=== PATIENT | male | born 1955 | race Caucasian/White ===

== ENCOUNTER 2016-09-05 03:50 | Inpatient (IN) | payer OTHER, BC ==
--- NOTE | 2016-09-05 04:31 | PDOC ---
History of Present Illness <Sigifredo Olmedo - Last Filed: 09/05/16 04:30> - General History Source: Patient Exam Limitations: No Limitations - History of Present Illness Initial Comments: 09/05/16 04:31 The patient is a 61 year old male with a significant past medical history of paraplegia below T2 and recurrent UTIs who presents to the ED for a UTI. The patient was discharged home from the ED last night but returned because his PIPING SUPERVISOR was not home. Patient denies any other symptoms. <Hailey Mckeon - Last Filed: 09/05/16 04:32> - General Stated Complaint: UTI Time Seen by Provider: 09/05/16 03:56 Past History - Past Medical History COPD: Yes Disorders: Yes (Recurrent UTI) HTN: (Hypotension) - Surgical History Orthopedic Surgery: Yes (fracture right wrist s/p fusion) - Immunization History Td Vaccination: No Immunization Up to Date: No - Psycho/Social/Smoking Cessation Hx Anxiety: No Suicidal Ideation: No Smoking Status: No Smoking History: Never smoked Years of Tobacco Use: 0 Have you smoked in the past 12 months: No Number of Cigarettes Smoked Daily: 0 Cigars Per Day: 0 Hx Alcohol Use: No Drug/Substance Use Hx: No Substance Use Type: Alcohol Hx Substance Use Treatment: No <Sigifredo Olmedo - Last Filed: 09/05/16 04:30> <Hailey Mckeon - Last Filed: 09/05/16 04:32> - Past Medical History Allergies/Adverse Reactions: Allergies Allergy/AdvReac Type Severity Reaction Status Date / Time No Known Allergies Allergy Verified 09/02/16 13:42 Home Medications: Ambulatory Orders Diazepam [Valium -] 10 mg PO TID PRN 07/28/15 Morphine 10 mg/5 ml Liquid [Morphine 10 mg/5 mL Liquid -] 4 mg PO Q4H PRN Sulfamethoxazole/Trimethoprim [Bactrim Ds -] 1 tab PO BID #20 tablet 09/02/16 Levofloxacin [Levaquin] 750 mg PO DAILY #5 tablet 09/05/16 Review of Systems - Review of Systems Able to Perform ROS?: Yes Comments:: 09/05/16 04:31 CONSTITUTIONAL: Absent: fever, no chills, no fatigue EYES: Absent: visual changes ENT: Absent: ear pain, no sore throat CARDIOVASCULAR: Absent: chest pain, no palpitations RESPIRATORY: Absent: cough, no SOB GI: Absent: abdominal pain, no nausea, no vomiting, no constipation, no diarrhea GENITOURINARY: Absent: dysuria, no frequency, no hematuria MUSKULOSKELETAL: Absent: back pain, no arthralgia, no myalgia SKIN: Absent: rash NEURO: Absent: headache All Other Systems: Reviewed and Negative <Hailey Mckeon - Last Filed: 09/05/16 04:32> *Physical Exam - Physical Exam Comments: 09/05/16 04:32 GENERAL: Well-appearing, well-nourished. No apparent distress. HEENT: Normocephalic, atraumatic. PERRL, EOM intact. CARDIOVASCULAR: Normal S1, S2. Regular rate and rhythm. PULMONARY: Clear to auscultation bilaterally. ABDOMEN: Soft, non-distended, non-tender. EXTREMITIES: Normal ROM in all four extremities. No gross deformities. SKIN: Warm, dry. No rash NEUROLOGICAL: + paraplegia, contracted right hand <Hailey Mckeon - Last Filed: 09/05/16 04:32> *DC/Admit/Observation/Transfer - Discharge Dispostion Admit: Yes <Sigifredo Olmedo - Last Filed: 09/05/16 04:30> - Attestations Scribe Attestion: 09/05/16 04:32 Documentation prepared by Hailey Mckeon, acting as medical massage therapist for Sigifredo Olmedo MD <Hailey Mckeon - Last Filed: 09/05/16 04:32> Diagnosis at time of Disposition: UTI (urinary tract infection) Qualifiers: Urinary tract infection type: site unspecified Hematuria presence: without hematuria Qualified Code(s): N39.0 - Urinary tract infection, site not specified
[2016-09-05] MEDS ORDERED: morphine SULFATE 10 MG/5 ML UNIT-DOSE CUP PO PRN (09:05)
[2016-09-05] MEDS ORDERED: ACETAMINOPHEN 325 MG TABLET (FP) PO PRN (09:06)
[2016-09-05] MEDS ORDERED: ONDANSETRON 4 MG/2 ML VIAL IVPB PRN (09:06)
[2016-09-05] MEDS ORDERED: POLYETHYLENE GLYCOL 3350 119 GM BTL PO SCH (10:00)
[2016-09-05] MEDS ORDERED: DOCUSATE SODIUM 100 MG CAPSULE (FP) PO ONE (10:22)
[2016-09-05] MEDS ORDERED: diazePAM 5 MG TABLET ONE (10:22)
[2016-09-05] MEDS: morphine SULFATE 10 MG/5 ML UNIT-DOSE CUP PO PRN (10:26)
[2016-09-05] MEDS: diazePAM 5 MG TABLET PO PRN ×2 (10:26→21:30)
[2016-09-05] MEDS: DOCUSATE SODIUM 100 MG CAPSULE (FP) PO SCH ×2 (10:26→21:31)
--- NOTE | 2016-09-05 10:51 | HP ---
Admitting History and Physical - Primary Care Physician PCP: Juan Manuel Kang - Admission Chief Complaint: I have a bladder infection History of Present Illness: Mr Valenzuela is a 61 year old male who comes in for a bladder infection. He says it started around Janine, he presented to the ED and received bactrim. He started taking it but did not improve. He says he wears a condom catheter and in the past couple of days noted pain on urination and general discomfort in his suprapubic area. He says he feels feverish with sweats and chills. He denies lightheadedness, dizziness, passing out, chest pain, shortness of breath , nausea, vomiting, diarrhea, constipation, or swelling. 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) Infectious Disease: Yes: Other (multiple UTIs) - Past Surgical History Past Surgical History: Yes: Splenectomy - Smoking History Smoking history: Never smoked Have you smoked in the past 12 months: No Aproximately how many cigarettes per day: 0 - Alcohol/Substance Use Hx Alcohol Use: Yes History of Substance Use: reports: None - Social History Usual Living Arrangement: Yes: Other 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 History of Recent Travel: No Home Medications - Allergies Allergies/Adverse Reactions: Allergies Allergy/AdvReac Type Severity Reaction Status Date / Time No Known Allergies Allergy Verified 09/05/16 04:32 - Home Medications Home Medications: Ambulatory Orders Diazepam [Valium -] 10 mg PO TID PRN 07/28/15 Morphine 10 mg/5 ml Liquid [Morphine 10 mg/5 mL Liquid -] 4 mg PO Q4H PRN Sulfamethoxazole/Trimethoprim [Bactrim Ds -] 1 tab PO BID #20 tablet 09/02/16 Levofloxacin [Levaquin] 750 mg PO DAILY #5 tablet 09/05/16 Family Disease History - Family Disease History Family Disease History: Heart Disease: Father Review of Systems Findings/Remarks: full review of systems obtained, as per HPI and otherwise negative Physical Examination Vital Signs: Vital Signs Temperature 97.7 F 09/05/16 09:11 Pulse Rate 85 09/05/16 08:00 Respiratory Rate 18 09/05/16 08:00 Blood Pressure 112/60 09/05/16 08:00 O2 Sat by Pulse Oximetry (%) 96 09/05/16 08:00 Constitutional: Yes: Well Nourished, No Distress, Calm Eyes: Yes: Conjunctiva Clear, EOM Intact HENT: Yes: Atraumatic, Normocephalic Cardiovascular: Yes: Regular Rate and Rhythm. No: Gallop, Murmur, Rub Respiratory: Yes: Regular, CTA Bilaterally. No: Rales, Rhonchi, Wheezes Gastrointestinal: Yes: Normal Bowel Sounds, Soft. No: Distention, Tenderness Extremities: Yes: WNL Edema: No Labs: Lab test reviewed and notable for UTI on urinalysis (positive nitrites and leukocyte esterase, elevated WBCs and bacteria present). All other lab test WNL Problem List - Problems (1) Complicated UTI (urinary tract infection) Assessment/Plan: -patient with complicated UTI, failed bactrim -admit to hospital -begin IV levaquin -follow up urine cultures -monitor for improvement Code(s): N39.0 - URINARY TRACT INFECTION, SITE NOT SPECIFIED (2) Paraplegia Assessment/Plan: -chronic Code(s): G82.20 - PARAPLEGIA, UNSPECIFIED (3) Chronic pain Assessment/Plan: -continue home dose of morphine and valium for pain and spasm Code(s): G89.29 - OTHER CHRONIC PAIN
[2016-09-05] MEDS: HEPARIN NA (PORCINE) 5,000 UNITS/ML 1ML VIAL SQ SCH ×2 (14:21→21:30)
[2016-09-05 16:18] VITALS: BMI 16.9
[2016-09-06] MEDS: morphine SULFATE 10 MG/5 ML UNIT-DOSE CUP PO PRN ×2 (06:20→20:03)
[2016-09-06] MEDS: HEPARIN NA (PORCINE) 5,000 UNITS/ML 1ML VIAL SQ SCH ×3 (06:21→21:40)
[2016-09-06 08:37] LABS: MCH 31.4 pg (25.7-33.7); MCHC 33.2 g/dl (32.0-35.9); MEAN CELL VOLUME 94.5 fl (80-96); MEAN PLT VOLUME 9.5 fl (7.5-11.1); PLATELET COUNT 238 K/MM3 (134-434); RDW 16.2 % (11.9-15.9); WHITE BLOOD COUNT 4.5 K/mm3 (4.0-10.0)
[2016-09-06 08:55] LABS: CALCIUM 8.1 mg/dL (8.5-10.1); CREATININE 0.6 mg/dL (0.7-1.3); PHOSPHOROUS 2.2 mg/dL (2.5-4.9)
[2016-09-06] MEDS: DOCUSATE SODIUM 100 MG CAPSULE (FP) PO SCH ×2 (10:04→21:40)
[2016-09-06] MEDS: diazePAM 5 MG TABLET PO PRN (10:05)
--- NOTE | 2016-09-06 11:52 | PN ---
Progress Note, Physician Chief Complaint: Mr Valenzuela says he needs to have a bowel movement, however he needs water stimulation to assist with moving his bowels. Also with bladder pain still. No cp or sob. - Current Medication List Current Medications: Active Medications Acetaminophen (Tylenol -) 650 mg PO Q4H PRN PRN Reason: FEVER OR PAIN Diazepam (Valium -) 10 mg PO TID PRN PRN Reason: muscle spasms Last Admin: 09/06/16 10:05 Dose: 10 mg Docusate Sodium (Colace -) 100 mg PO BID [facility] Last Admin: 09/06/16 10:04 Dose: 100 mg Heparin Sodium (Porcine) (Heparin -) 5,000 unit SQ TID [facility] Last Admin: 09/06/16 06:21 Dose: 5,000 unit Morphine Sulfate (Morphine 10 Mg/5 Ml Liquid) 10 mg PO Q4H PRN PRN Reason: PAIN Last Admin: 09/06/16 06:20 Dose: 10 mg Ondansetron HCl (Zofran Injection) 4 mg IVPB Q6H PRN PRN Reason: NAUSEA Polyethylene Glycol (Miralax (For Daily Use) -) 17 gm PO DAILY PRN PRN Reason: CONSTIPATION - Objective Vital Signs: Vital Signs Temperature 97.6 F 09/06/16 09:28 Pulse Rate 96 H 09/06/16 09:28 Respiratory Rate 20 09/06/16 09:28 Blood Pressure 96/57 09/06/16 09:28 O2 Sat by Pulse Oximetry (%) 95 09/06/16 09:00 Constitutional: Yes: Well Nourished, No Distress, Calm Cardiovascular: Yes: Regular Rate and Rhythm. No: Gallop, Murmur, Rub Respiratory: Yes: Regular, CTA Bilaterally. No: Rales, Rhonchi, Wheezes Gastrointestinal: Yes: Normal Bowel Sounds, Soft. No: Distention, Tenderness Extremities: Yes: WNL Edema: No Labs: CBC, BMP 09/06/16 07:00 09/06/16 07:00 Problem List - Problems (1) Complicated UTI (urinary tract infection) Code(s): N39.0 - URINARY TRACT INFECTION, SITE NOT SPECIFIED (2) Paraplegia Code(s): G82.20 - PARAPLEGIA, UNSPECIFIED (3) Chronic pain Code(s): G89.29 - OTHER CHRONIC PAIN Assessment/Plan (1) Complicated UTI (urinary tract infection) Assessment/Plan: -patient with complicated UTI, failed bactrim -continue levaquin -urine cultures are contaminant, will repeat (note urine cultures do not show up this admission but last admission because patient left AMA and came right back) Code(s): N39.0 - URINARY TRACT INFECTION, SITE NOT SPECIFIED (2) Paraplegia Assessment/Plan: -chronic Code(s): G82.20 - PARAPLEGIA, UNSPECIFIED (3) Chronic pain Assessment/Plan: -continue home dose of morphine and valium for pain and spasm Code(s): G89.29 - OTHER CHRONIC PAIN
[2016-09-06] MEDS ORDERED: NAPH,MB-DB/K PH,MBDB POWDER PACKET PO ONE (12:30)
[2016-09-06] MEDS: POLYETHYLENE GLYCOL 3350 119 GM BTL PO PRN (21:40)
[2016-09-07] MEDS: diazePAM 5 MG TABLET PO PRN ×2 (01:43→10:48)
[2016-09-07] MEDS: HEPARIN NA (PORCINE) 5,000 UNITS/ML 1ML VIAL SQ SCH ×3 (06:57→22:50)
[2016-09-07] MEDS: morphine SULFATE 10 MG/5 ML UNIT-DOSE CUP PO PRN (07:03)
[2016-09-07 09:27] LABS: MCH 31.4 pg (25.7-33.7); MCHC 33.6 g/dl (32.0-35.9); MEAN CELL VOLUME 93.4 fl (80-96); MEAN PLT VOLUME 9.5 fl (7.5-11.1); PLATELET COUNT 241 K/MM3 (134-434); RDW 15.7 % (11.9-15.9); WHITE BLOOD COUNT 4.8 K/mm3 (4.0-10.0)
[2016-09-07 09:44] LABS: ALK PHOS 88 U/L (45-117); ANION GAP 8 (8-16); BILIRUBIN,TOTAL 0.5 mg/dL (0.2-1.0); CALCIUM 8.4 mg/dL (8.5-10.1); CO2 27 mmol/L (21-32); CREATININE 0.5 mg/dL (0.7-1.3); GLUCOSE,RANDOM 101 mg/dL (74-106); SGOT/AST 21 U/L (15-37); SGPT/ALT 18 U/L (12-78); TOT PROT 6.5 g/dl (6.4-8.2)
[2016-09-07] MEDS: POLYETHYLENE GLYCOL 3350 119 GM BTL PO PRN (10:27)
[2016-09-07] MEDS: DOCUSATE SODIUM 100 MG CAPSULE (FP) PO SCH ×2 (10:27→22:50)
[2016-09-07] MEDS ORDERED: PATIENT'S OWN MEDICATION (NON-FORMULARY) (Levofloxacin 750 MG) PO SCH (10:45)
[2016-09-07] MEDS ORDERED: LEVOFLOXACIN 750 MG IVPB 150 ML IVPB ONE (10:49)
[2016-09-07 11:30] LABS: PLATELET COMMENT2 NO CLOTTING DETECTED; PLATELET COMMENT3 FEW LARGE PLTS; PLATELET ESTIMATE ADEQUATE (NORMAL)
[2016-09-07] MEDS ORDERED: LEVOFLOXACIN 250 MG TABLET (FP) ONE (11:36)
[2016-09-07] MEDS ORDERED: LEVOFLOXACIN 500 MG TABLET (FP) ONE (11:36)
[2016-09-07] MEDS: LEVOFLOXACIN 250 MG TABLET (FP) PO SCH (11:39)
[2016-09-07] MEDS: MAGNESIUM HYDROX 2400MG/30ML ORAL SUSPENSION 30 ML CUP PO PRN (18:37)
--- NOTE | 2016-09-07 20:10 | PN ---
Physical Exam: SUBJECTIVE: Patient seen and examined. He was comfortable at rest, denies any pain. Refusing IV antibiotics, but now in agreement. OBJECTIVE: GENERAL: The patient is awake, alert, and fully oriented, in no acute distress. HEAD: Normal with no signs of trauma. EYES: PERRL, extraocular movements intact, sclera anicteric, conjunctiva clear. No ptosis. ENT: Ears normal, nares patent, oropharynx clear without exudates, moist mucous membranes. NECK: Trachea midline, full range of motion, supple. LUNGS: Breath sounds equal, clear to auscultation bilaterally, no wheezes, no crackles, no accessory muscle use. ABDOMEN: Soft, nontender, nondistended, normoactive bowel sounds, no guarding, no rebound, no hepatosplenomegaly, no masses. PSYCH: Normal mood, normal affect. SKIN: Warm, dry, normal turgor, no rashes or lesions noted Period Temp Pulse Resp BP Sys/Roche Pulse Ox Last 24 Hr 97.8 F-98.5 F 63-98 18-20 100-139/52-61 95-95 Laboratory Results - last 24 hr 09/06/16 09/07/16 09/07/16 07:00 08:45 08:45 WBC 4.8 RBC 4.32 Hgb 13.5 Hct 40.3 MCV 93.4 MCHC 33.6 RDW 15.7 Plt Count 241 MPV 9.5 Neutrophils % 52.0 D Lymphocytes % 30.0 D Monocytes % 12.0 H Eosinophils % 2.0 D Band Neutrophils 4.0 D Platelet Estimate Adequate Platelet Comment No clotting detected RBC Morphology Appears normal Sodium 139 Potassium 3.5 Chloride 104 Carbon Dioxide 27 Anion Gap 8 BUN 5 L D Creatinine 0.5 L Creat Clearance w eGFR > 60 Random Glucose 101 D Calcium 8.4 L Total Bilirubin 0.5 D AST 21 ALT 18 Alkaline Phosphatase 88 D Total Protein 6.5 Albumin 3.0 L Hepatitis C Antibody 10.2 H Active Medications Generic Name Dose Route Start Last Admin Trade Name Freq PRN Reason Stop Dose Admin Acetaminophen 650 mg 09/05/16 09:06 Tylenol - PO Q4H PRN FEVER OR PAIN Diazepam 10 mg 09/05/16 09:05 09/07/16 10:48 Valium - PO 10 mg TID PRN Administration muscle spasms Docusate Sodium 100 mg 09/05/16 10:00 09/07/16 10:27 Colace - PO 100 mg BID ZAIRA Administration Heparin Sodium (Porcine) 5,000 unit 09/05/16 14:00 09/07/16 14:12 Heparin - SQ 5,000 unit TID ZAIRA Administration Levofloxacin 150 mls @ 100 mls/hr 09/08/16 08:00 Levaquin 750 Mg Premixed Ivpb - IVPB 09/08/16 09:29 ONCE ONE Levofloxacin 750 mg 09/07/16 11:30 09/07/16 11:39 Levaquin - PO 750 mg DAILY ZAIRA Administration Magnesium Hydroxide 30 ml 09/07/16 17:52 09/07/16 18:37 Milk Of Magnesia - PO 30 ml DAILY PRN Administration CONSTIPATION Morphine Sulfate 10 mg 09/05/16 09:59 09/07/16 07:03 Morphine 10 Mg/5 Ml Liquid PO 10 mg Q4H PRN Administration PAIN Ondansetron HCl 4 mg 09/05/16 09:06 Zofran Injection IVPB Q6H PRN NAUSEA Polyethylene Glycol 17 gm 09/05/16 10:45 09/07/16 10:27 Miralax (For Daily Use) - PO 17 gm DAILY PRN Administration CONSTIPATION ASSESSMENT/PLAN: The patient is a 61 year old male with a significant past medical history of paraplegia below T2 and recurrent UTIs who presents to the ED for a UTI. 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 Patient denies any other symptoms. : Urinary Tract Infection - chronic Assessment/Plan: Patient was being treated with PO Bactrim as outpatient. Will be receiving Levaquin IV here for UTI, but today refused IV placement. Ordered Levaquin 750mg PO x 1 dose and stressed importance of Levaquin IV for his recurrent UTI. He is now in agreement to get IV antibiotics. Condom catheter with hazy yellow urine. Urine cultures pending Continue to monitor, he is afebrile, vitals stable Muscular/Skeletal Paraplegia - chronic Assessment/Plan: Monitor skin integrity, turn and position q 2, high risk for skin breakdown Pt encouraged to shift his weight, bed trapeze. Monitor closely Pain Management - chronic Assessment/Plan: Continue morphine and Valium GI: Constipation - chronic Assessment/Plan: Miralax, Colace and Milk of Mag If no BM, will order tap water enema F.E.N. Tolerating PO fluids BMP in a.m. Regular diet Prophylaxis: heparin TID SC Disposition: Requires inpatient hospitalization. Full Code. Visit type - Emergency Visit Emergency Visit: Yes ED Registration Date: 09/05/16 Care time: The patient presented to the Emergency Department on the above date and was hospitalized for further evaluation of their emergent condition. - New Patient This patient is new to me today: Yes Date on this admission: 09/08/16 - Critical Care Critical Care patient: No - Discharge Referral Referred to [facility] Med P.C.: No
[2016-09-08] MEDS: HEPARIN NA (PORCINE) 5,000 UNITS/ML 1ML VIAL SQ SCH ×3 (06:56→21:34)
[2016-09-08 07:48] LABS: MCH 31.2 pg (25.7-33.7); MCHC 33.4 g/dl (32.0-35.9); MEAN CELL VOLUME 93.6 fl (80-96); PLATELET COUNT 223 K/MM3 (134-434); RDW 15.8 % (11.9-15.9); WHITE BLOOD COUNT 5.9 K/mm3 (4.0-10.0)
[2016-09-08] MEDS ORDERED: LEVOFLOXACIN 750 MG IVPB 150 ML IVPB ONE (08:00)
[2016-09-08 08:12] LABS: ALK PHOS 92 U/L (45-117); ANION GAP 11 (8-16); BILIRUBIN,TOTAL 0.4 mg/dL (0.2-1.0); CALCIUM 8.4 mg/dL (8.5-10.1); CO2 29 mmol/L (21-32); CREATININE 0.6 mg/dL (0.7-1.3); GLUCOSE,RANDOM 84 mg/dL (74-106); SGOT/AST 17 U/L (15-37); SGPT/ALT 22 U/L (12-78); TOT PROT 6.7 g/dl (6.4-8.2)
[2016-09-08] MEDS: LEVOFLOXACIN 250 MG TABLET (FP) PO SCH (10:09)
[2016-09-08] MEDS ORDERED: SODIUM CHLORIDE 250 ML IV STA (10:11)
[2016-09-08] MEDS: MAGNESIUM HYDROX 2400MG/30ML ORAL SUSPENSION 30 ML CUP PO PRN (10:30)
[2016-09-08] MEDS: DOCUSATE SODIUM 100 MG CAPSULE (FP) PO SCH ×2 (10:30→21:34)
[2016-09-08] MEDS: morphine SULFATE 10 MG/5 ML UNIT-DOSE CUP PO PRN ×2 (10:35→19:56)
[2016-09-08] MEDS: SODIUM CHLORIDE 1,000 ML IV SCH (12:17)
--- NOTE | 2016-09-08 16:50 | PN ---
Physical Exam: SUBJECTIVE: Patient seen and examined. States he feels well, asymptomatic, denies dizziness. States he is chronically constipated and medications are not working. OBJECTIVE: GENERAL: The patient is awake, alert, and fully oriented, in no acute distress. HEAD: Normal with no signs of trauma. EYES: PERRL, extraocular movements intact, sclera anicteric, conjunctiva clear. No ptosis. ENT: Ears normal, nares patent, oropharynx clear without exudates, moist mucous membranes. NECK: Trachea midline, full range of motion, supple. LUNGS: Breath sounds equal, clear to auscultation bilaterally, no wheezes, no crackles, no accessory muscle use. ABDOMEN: Soft, nontender, nondistended, normoactive bowel sounds, no guarding, no rebound, no hepatosplenomegaly, no masses. PSYCH: Normal mood, normal affect. SKIN: Warm, dry, normal turgor, no rashes or lesions noted Vital Signs Period Temp Pulse Resp BP Sys/Roche Pulse Ox Last 24 Hr 98.2 F-99.4 F 64-110 18-20 80-143/50-69 96-96 Laboratory Results - last 24 hr 09/08/16 09/08/16 06:00 06:00 WBC 5.9 RBC 4.36 Hgb 13.6 Hct 40.8 MCV 93.6 MCHC 33.4 RDW 15.8 Plt Count 223 MPV 10.0 Neutrophils % 52.0 Lymphocytes % 21.0 D Monocytes % 13.0 H Band Neutrophils 14.0 H D Sodium 139 Potassium 3.7 Chloride 99 Carbon Dioxide 29 Anion Gap 11 BUN 5 L Creatinine 0.6 L Creat Clearance w eGFR > 60 Random Glucose 84 Calcium 8.4 L Total Bilirubin 0.4 AST 17 ALT 22 D Alkaline Phosphatase 92 Total Protein 6.7 Albumin 3.0 L Active Medications Generic Name Dose Route Start Last Admin Trade Name Freq PRN Reason Stop Dose Admin Acetaminophen 650 mg 09/05/16 09:06 Tylenol - PO Q4H PRN FEVER OR PAIN Diazepam 10 mg 09/05/16 09:05 09/07/16 10:48 Valium - PO 10 mg TID PRN Administration muscle spasms Docusate Sodium 100 mg 09/05/16 10:00 09/08/16 10:30 Colace - PO 100 mg BID [facility]AIRA Administration Heparin Sodium (Porcine) 5,000 unit 09/05/16 14:00 09/08/16 14:12 Heparin - SQ 5,000 unit TID [facility]AIR[facility] Administration Sodium Chloride 1,000 mls @ 100 mls/hr 09/08/16 10:15 09/08/16 12:17 Normal Saline - IV 100 mls/hr ASDIR ZAIRA Administration Magnesium Hydroxide 30 ml 09/07/16 17:52 09/08/16 10:30 Milk Of Magnesia - PO 30 ml DAILY PRN Administration CONSTIPATION Morphine Sulfate 10 mg 09/05/16 09:59 09/08/16 10:35 Morphine 10 Mg/5 Ml Liquid PO 10 mg Q4H PRN Administration PAIN Ondansetron HCl 4 mg 09/05/16 09:06 Zofran Injection IVPB Q6H PRN NAUSEA Polyethylene Glycol 17 gm 09/05/16 10:45 09/07/16 10:27 Miralax (For Daily Use) - PO 17 gm DAILY PRN Administration CONSTIPATION ASSESSMENT/PLAN: The patient is a 61 year old male with a significant past medical history of paraplegia below T2 and recurrent UTIs who presents to the ED for a UTI. 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 Patient denies any other symptoms. : Urinary Tract Infection - chronic Assessment/Plan: Patient was being treated with PO Bactrim as outpatient, failed Bactrim. Now on Levaquin IV 750mg daily. Awaiting urine cultures. Condom catheter with hazy yellow urine. Today had low grade temps, tachycardia and was hypotensive. Blood cultures ordered. Normal saline 250cc x 1 and NS at 100cc maintenance fluids ordered Continue to monitor. Muscular/Skeletal Paraplegia - chronic Assessment/Plan: Monitor skin integrity, turn and position q 2, high risk for skin breakdown Pt encouraged to shift his weight, bed trapeze. Monitor closely Pain Management - chronic Assessment/Plan: Continue morphine and Valium GI: Constipation - chronic Assessment/Plan: Miralax, Colace and Milk of Mag without result. Ordered tap water enema. Not distended, abdomen soft If no BM, may require Relistor F.E.N. Fluids: Normal saline 100cc/hr, 250cc NS bolus x 1 for hypotension Electrolytes: within normal limits Regular diet Prophylaxis: DVT: heparin TID SC GI: tap water enema, Miralax, milk of mag, colace Disposition. Continues to require inpatient hospitalization. Full Code. Visit type - Emergency Visit Emergency Visit: Yes ED Registration Date: 09/05/16 Care time: The patient presented to the Emergency Department on the above date and was hospitalized for further evaluation of their emergent condition. - New Patient This patient is new to me today: No - Critical Care Critical Care patient: No - Discharge Referral Referred to [facility] Med P.C.: No
[2016-09-08] MEDS: diazePAM 5 MG TABLET PO PRN (21:34)
[2016-09-09] MEDS: HEPARIN NA (PORCINE) 5,000 UNITS/ML 1ML VIAL SQ SCH ×3 (06:00→21:28)
[2016-09-09] MEDS: morphine SULFATE 10 MG/5 ML UNIT-DOSE CUP PO PRN ×3 (07:14→23:55)
[2016-09-09 08:48] LABS: EOSINOPHIL 1.8 % (0-4.5); MCH 31.6 pg (25.7-33.7); MCHC 33.5 g/dl (32.0-35.9); MEAN CELL VOLUME 94.3 fl (80-96); MEAN PLT VOLUME 10.1 fl (7.5-11.1); NEUTROPHILS 42.8 % (42.8-82.8); PLATELET COUNT 199 K/MM3 (134-434); RDW 15.9 % (11.9-15.9); WHITE BLOOD COUNT 5.2 K/mm3 (4.0-10.0)
[2016-09-09] MEDS: DOCUSATE SODIUM 100 MG CAPSULE (FP) PO SCH ×2 (09:07→21:28)
[2016-09-09 09:10] LABS: ANION GAP 9 (8-16); CALCIUM 7.7 mg/dL (8.5-10.1); CO2 26 mmol/L (21-32); GLUCOSE,RANDOM 82 mg/dL (74-106)
[2016-09-09] MEDS: POLYETHYLENE GLYCOL 3350 119 GM BTL PO PRN (09:12)
[2016-09-09 09:15] LABS: ALBUMIN 2.7 g/dl (3.4-5.0); ALK PHOS 77 U/L (45-117); BILIRUBIN,TOTAL 0.3 mg/dL (0.2-1.0); CREATININE 0.5 mg/dL (0.7-1.3); SGOT/AST 21 U/L (15-37); SGPT/ALT 21 U/L (12-78)
[2016-09-09] MEDS ORDERED: LEVOFLOXACIN 750 MG IVPB 150 ML IVPB SCH (10:00)
[2016-09-09] MEDS: MAGNESIUM HYDROX 2400MG/30ML ORAL SUSPENSION 30 ML CUP PO PRN (10:50)
[2016-09-09] MEDS ORDERED: SODIUM CHLORIDE 500 ML IV STA (11:03)
--- NOTE | 2016-09-09 12:56 | PN ---
Physical Exam: SUBJECTIVE: Patient seen and examined. He is complaining of abdominal pain, abdomen noted to be distended. States pain is worse on LLQ on light palpation. Denies vomiting. No BM since admission. Pt reports no BM since last Friday. OBJECTIVE: GENERAL: The patient is awake, alert, and fully oriented HEAD: Normal with no signs of trauma. EYES: PERRL, extraocular movements intact, sclera anicteric, conjunctiva clear. No ptosis. ENT: Ears normal, nares patent, oropharynx clear without exudates, moist mucous membranes. NECK: Trachea midline, full range of motion, supple. LUNGS: Breath sounds equal ABDOMEN: Distended, soft, pain on palpaltion of LLQ, hypoactive bowels sounds, refused tap water enema last night CT of abd/pelvis ordered to r/o acute pathology. PSYCH: Normal mood, normal affect. SKIN: Warm, dry, normal turgor, no rashes or lesions noted Vital Signs Period Temp Pulse Resp BP Sys/Roche Pulse Ox Last 24 Hr 97.6 F-99.2 F 61-80 18-18 91-147/60-63 94 Laboratory Results - last 24 hr 09/09/16 09/09/16 09/09/16 07:20 07:20 10:00 WBC 5.2 RBC 3.99 L Hgb 12.6 Hct 37.6 MCV 94.3 MCHC 33.5 RDW 15.9 Plt Count 199 MPV 10.1 Neutrophils % 42.8 Lymphocytes % 32.9 D Monocytes % 21.5 H Eosinophils % 1.8 Basophils % 1.0 D Sodium 140 Potassium 3.5 Chloride 105 Carbon Dioxide 26 Anion Gap 9 BUN 6 L Creatinine 0.5 L Creat Clearance w eGFR > 60 Random Glucose 82 Lactic Acid 3.045 H* Calcium 7.7 L Total Bilirubin 0.3 D AST 21 D ALT 21 Alkaline Phosphatase 77 Total Protein 6.0 L Albumin 2.7 L Active Medications Generic Name Dose Route Start Last Admin Trade Name Freq PRN Reason Stop Dose Admin Acetaminophen 650 mg 09/05/16 09:06 Tylenol - PO Q4H PRN FEVER OR PAIN Diazepam 10 mg 09/05/16 09:05 09/08/16 21:34 Valium - PO 10 mg TID PRN Administration muscle spasms Docusate Sodium 100 mg 09/05/16 10:00 09/09/16 09:07 Colace - PO 100 mg BID ZAIRA Administration Heparin Sodium (Porcine) 5,000 unit 09/05/16 14:00 09/09/16 06:00 Heparin - SQ Not Given TID ZAIRA Sodium Chloride 1,000 mls @ 100 mls/hr 09/08/16 10:15 09/08/16 12:17 Normal Saline - IV 100 mls/hr ASDIR ZAIRA Administration Levofloxacin 150 mls @ 150 mls/hr 09/09/16 10:00 09/09/16 09:07 Levaquin 750 Mg Premixed Ivpb - IVPB 150 mls/hr DAILY [facility] Administration Magnesium Hydroxide 30 ml 09/07/16 17:52 09/09/16 10:50 Milk Of Magnesia - PO 30 ml DAILY PRN Administration CONSTIPATION Morphine Sulfate 10 mg 09/05/16 09:59 09/09/16 07:14 Morphine 10 Mg/5 Ml Liquid PO 10 mg Q4H PRN Administration PAIN Ondansetron HCl 4 mg 09/05/16 09:06 Zofran Injection IVPB Q6H PRN NAUSEA Polyethylene Glycol 17 gm 09/05/16 10:45 09/09/16 09:12 Miralax (For Daily Use) - PO 17 gm DAILY PRN Administration CONSTIPATION ASSESSMENT/PLAN: The patient is a 61 year old male with a significant past medical history of paraplegia below T2 and recurrent UTIs who presents to the ED for a UTI. 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 Patient denies any other symptoms. : Urinary Tract Infection - chronic Assessment/Plan: Patient was being treated with PO Bactrim as outpatient, failed Bactrim therapy. Now on Levaquin IV 750mg daily. Urine cultures contaminated, repeat ordered, blood cultures pending Condom catheter with hazy yellow urine. ID: Lactic Acidosis - acute Lactic levels elevated at 3.045 today, NS @500cc ordered x 1, followed by repeat 1 liter NS bolus. Repeat lactic acid now 1.006. No fever overnight, WBC within normal limits Noted to have elevated band neutrophils. Blood cultures sent yesterday - pending. Chest xray with no acute findings ID consulted. On Levaquin IV may need broader spectrum coverage so Zosyn 3.375 x 1 ordered pending ID recommendations Continue to monitor. GI: Abdominal distention - acute Assessment/Plan: Abdomen distended this morning, soft with hypoactive bowel sounds, tenderness on LLQ. Pt describes pain on palpation as "dull", non radiating, denies nausea or vomiting. CT of abdomen/pelvis: bibasilar atelectasis and new left lower lobe nodule of uncertain etiology, no evidence of bowel obstruction or acute pathology. Muscular/Skeletal: Paraplegia - chronic Assessment/Plan: Monitor skin integrity, turn and position q 2, high risk for skin breakdown Pt encouraged to shift his weight, will benefit from a bed trapeze. Monitor closely Pain Management - chronic Assessment/Plan: Continue morphine and Valium F.E.N. Fluids: Bolus of 500 cc/NS for elevated lactic levels followed by 1 liter bolus of NS. NS at 100cc maintenance fluids to continue Electrolytes: within normal limits Can continue regular diet Prophylaxis: DVT: heparin TID SC GI: tap water enema as needed, Fleet enema x 1 ordered, colace increased to TID Disposition. Continues to require inpatient hospitalization. Full Code. Visit type - Emergency Visit Emergency Visit: Yes ED Registration Date: 09/05/16 Care time: The patient presented to the Emergency Department on the above date and was hospitalized for further evaluation of their emergent condition. - New Patient This patient is new to me today: No - Critical Care Critical Care patient: No - Discharge Referral Referred to [facility] Med P.C.: No
[2016-09-09 13:25] LABS: URINE APPEARANCE SLCLOUDY; URINE BILIRUBIN NEGATIVE (NEGATIVE); URINE COLOR STRAW; URINE GLUCOSE (UA) NEGATIVE (NEGATIVE); URINE KETONE NEGATIVE (NEGATIVE); URINE NITRITE NEGATIVE (NEGATIVE); URINE PROTEIN NEGATIVE (NEGATIVE); URINE UROBILINOGEN NEGATIVE E.U./dl (0.2-1.0)
[2016-09-09 13:27] LABS: URINE BLOOD 1+ (NEGATIVE); URINE LEUK ESTERASE 3+ (NEGATIVE)
[2016-09-09] MEDS: SODIUM CHLORIDE 1,000 ML IV SCH (14:10)
[2016-09-09] MEDS ORDERED: SODIUM CHLORIDE 1,000 ML IV STA (14:18)
[2016-09-09 14:26] LABS: URINE BACTERIA FEW /hpf (NONE SEEN); URINE HYALINE CAST 1 /lpf; URINE MUCUS RARE; URINE RBC 7 /hpf (0-3); URINE WBC 54 /hpf (3-5); YEAST MANY
[2016-09-09] MEDS ORDERED: SODIUM PHOSPHATE/NA BIPHOS 133 ML ENEMA PR ONE (14:47)
[2016-09-09] MEDS ORDERED: PIPERACILLIN/TAZOB 3.375 GM 50 ML IVPB ONE (14:52)
[2016-09-09] MEDS ORDERED: ALBUTEROL SO4 2.5/IPRATROPIUM 0.5 INH SOL 3 ML VIAL.NEB. NEB PRN (17:34)
--- NOTE | 2016-09-09 18:25 | CONSULT ---
Consult Consult Specialty:: infectious diseases Reason for Consultation:: fever,lactic acidosis - History of Present Illness Chief Complaint: burning in urine History of Present Illness: patient known to me who has a history of repeated utis 60 to male with a PMHx of paraplegia below the armpits and recurrent bladder infections who presents with suprapubic pressure radiating to his back. patient was admitted to the hospital and was started on levaquin patient inspite of that spiked a fever and had a spike in lactic acid he still has pain on palpation and he has been not feeling well for couple of days now and was admitted to the hospital 3 days abck has condom catheter and has clear urine - History Source History Provided By: Patient Limitations to Obtaining History: No Limitations - Past Medical History SLASHER HAND: Yes: Other (paraplegia) Infectious Disease: Yes: Other (multiple UTIs) - Past Surgical History Past Surgical History: Yes: Splenectomy - Alcohol/Substance Use Hx Alcohol Use: Yes History of Substance Use: reports: None - Smoking History Smoking history: Never smoked Have you smoked in the past 12 months: No Aproximately how many cigarettes per day: 0 If you are a former smoker, when did you quit?: 1985 - Social History 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 History of Recent Travel: No Home Medications - Allergies Allergies/Adverse Reactions: Allergies Allergy/AdvReac Type Severity Reaction Status Date / Time No Known Allergies Allergy Verified 09/05/16 04:32 - Home Medications Home Medications: Ambulatory Orders Diazepam [Valium -] 10 mg PO TID PRN 07/28/15 Morphine 10 mg/5 ml Liquid [Morphine 10 mg/5 mL Liquid -] 4 mg PO Q4H PRN Levofloxacin [Levaquin] 750 mg PO DAILY #5 tablet 09/05/16 Family Disease History - Family Disease History Family Disease History: Heart Disease: Father Review of Systems - Review of Systems Constitutional: reports: Fever, Other Eyes: reports: No Symptoms HENT: reports: No Symptoms Neck: reports: No Symptoms Cardiovascular: reports: No Symptoms Respiratory: reports: No Symptoms Gastrointestinal: reports: No Symptoms Genitourinary: reports: Pain, Other Musculoskeletal: reports: No Symptoms Integumentary: reports: No Symptoms Neurological: reports: No Symptoms Endocrine: reports: No Symptoms Hematology/Lymphatic: reports: No Symptoms Psychiatric: reports: No Symptoms Physical Exam Vital Signs: Vital Signs Temperature 98.6 F 09/09/16 14:04 Pulse Rate 67 09/09/16 14:04 Respiratory Rate 22 09/09/16 14:04 Blood Pressure 133/62 09/09/16 14:04 O2 Sat by Pulse Oximetry (%) 98 09/09/16 09:00 Constitutional: Yes: No Distress, Calm Eyes: Yes: Conjunctiva Clear HENT: Yes: Atraumatic Neck: Yes: Supple, Trachea Midline Cardiovascular: Yes: Regular Rate and Rhythm Respiratory: Yes: Regular, CTA Bilaterally Gastrointestinal: Yes: Normal Bowel Sounds, Soft Renal/: Yes: Other (suprapubic tenderness,condom catheter) Musculoskeletal: Yes: Other Extremities: Yes: Other (deformities) Neurological: Yes: Alert, Oriented Psychiatric: Yes: Alert, Oriented Labs: CBC, BMP 09/09/16 07:20 09/09/16 07:20 Imaging - Results Chest X-ray: Report Reviewed, Image Reviewed Cat Scan: Report Reviewed, Image Reviewed Assessment/Plan Assessment/Plan (1) Complicated UTI (urinary tract infection) Code: N39.0 paraplegia deformities recurrent uti plan i have switched patient to zosyn will continue to monitor for fever ct scan seen and results noted await for all the cx report lactic acid has come down
[2016-09-09] MEDS: diazePAM 5 MG TABLET PO PRN (21:29)
[2016-09-10] MEDS: SODIUM CHLORIDE 1,000 ML IV SCH ×3 (02:38→14:01)
[2016-09-10] MEDS: PIPERACILLIN/TAZOB 3.375 GM 50 ML IVPB SCH ×3 (02:38→17:08)
[2016-09-10] MEDS: DOCUSATE SODIUM 100 MG CAPSULE (FP) PO SCH ×3 (05:42→21:14)
[2016-09-10] MEDS: diazePAM 5 MG TABLET PO PRN ×2 (05:42→20:52)
[2016-09-10] MEDS: HEPARIN NA (PORCINE) 5,000 UNITS/ML 1ML VIAL SQ SCH ×3 (05:54→21:14)
[2016-09-10] MEDS: morphine SULFATE 10 MG/5 ML UNIT-DOSE CUP PO PRN ×3 (06:50→23:05)
[2016-09-10 08:55] LABS: BASOPHIL 1.3 % (0-2.0); EOSINOPHIL 3.5 % (0-4.5); MCH 31.4 pg (25.7-33.7); MCHC 33.2 g/dl (32.0-35.9); MEAN CELL VOLUME 94.6 fl (80-96); MEAN PLT VOLUME 9.7 fl (7.5-11.1); NEUTROPHILS 60.5 % (42.8-82.8); PLATELET COUNT 200 K/MM3 (134-434); RDW 15.7 % (11.9-15.9); WHITE BLOOD COUNT 7.4 K/mm3 (4.0-10.0)
[2016-09-10 09:17] LABS: ALBUMIN 2.9 g/dl (3.4-5.0); ANION GAP 6 (8-16); CALCIUM 7.7 mg/dL (8.5-10.1); CO2 28 mmol/L (21-32); GLUCOSE,RANDOM 97 mg/dL (74-106)
[2016-09-10 09:22] LABS: ALK PHOS 73 U/L (45-117); BILIRUBIN,TOTAL 0.5 mg/dL (0.2-1.0); CREATININE 0.6 mg/dL (0.7-1.3); SGPT/ALT 20 U/L (12-78); TOT PROT 6.3 g/dl (6.4-8.2)
[2016-09-10 09:29] LABS: SGOT/AST 34 U/L (15-37)
[2016-09-10] MEDS: POLYETHYLENE GLYCOL 3350 119 GM BTL PO PRN (09:30)
[2016-09-10] MEDS: MAGNESIUM HYDROX 2400MG/30ML ORAL SUSPENSION 30 ML CUP PO PRN (09:30)
--- NOTE | 2016-09-10 14:23 | PN ---
Progress Note, Physician History of Present Illness: says he feels more better no new events - Current Medication List Current Medications: Active Medications Acetaminophen (Tylenol -) 650 mg PO Q4H PRN PRN Reason: FEVER OR PAIN Albuterol/Ipratropium (Duoneb -) 1 amp NEB Q6H PRN PRN Reason: SHORTNESS OF BREATH Diazepam (Valium -) 10 mg PO TID PRN PRN Reason: muscle spasms Last Admin: 09/10/16 05:42 Dose: 10 mg Docusate Sodium (Colace -) 100 mg PO TID [facility] Last Admin: 09/10/16 13:54 Dose: Not Given Heparin Sodium (Porcine) (Heparin -) 5,000 unit SQ TID [facility] Last Admin: 09/10/16 13:54 Dose: Not Given Sodium Chloride (Normal Saline -) 1,000 mls @ 100 mls/hr IV ASDIR [facility] Last Admin: 09/10/16 14:01 Dose: Not Given Piperacillin Sod/Tazobactam Sod (Zosyn 3.375gm Ivpb (Pre-Docked)) 50 mls @ 100 mls/hr IVPB Q8H-IV [facility] Last Admin: 09/10/16 09:30 Dose: 100 mls/hr Magnesium Hydroxide (Milk Of Magnesia -) 30 ml PO DAILY PRN PRN Reason: CONSTIPATION Last Admin: 09/10/16 09:30 Dose: 30 ml Morphine Sulfate (Morphine 10 Mg/5 Ml Liquid) 10 mg PO Q4H PRN PRN Reason: PAIN Last Admin: 09/10/16 06:50 Dose: 10 mg Ondansetron HCl (Zofran Injection) 4 mg IVPB Q6H PRN PRN Reason: NAUSEA Polyethylene Glycol (Miralax (For Daily Use) -) 17 gm PO DAILY PRN PRN Reason: CONSTIPATION Last Admin: 09/10/16 09:30 Dose: 17 gm - Objective Vital Signs: Vital Signs Temperature 97.5 F L 09/10/16 14:00 Pulse Rate 80 09/10/16 14:00 Respiratory Rate 20 09/10/16 14:00 Blood Pressure 136/65 09/10/16 12:00 O2 Sat by Pulse Oximetry (%) 95 09/09/16 20:36 Constitutional: Yes: No Distress, Calm Cardiovascular: Yes: Regular Rate and Rhythm Respiratory: Yes: Regular, CTA Bilaterally Gastrointestinal: Yes: Normal Bowel Sounds, Soft Genitourinary: Yes: Other Extremities: Yes: Other Neurological: Yes: Alert, Oriented Psychiatric: Yes: Alert Labs: CBC, BMP 09/10/16 08:25 09/10/16 08:25 Assessment/Plan Assessment/Plan (1) Complicated UTI (urinary tract infection) Code: N39.0 paraplegia deformities recurrent uti plan continue zosyn hydration
--- NOTE | 2016-09-10 14:51 | PN ---
Physical Exam: SUBJECTIVE: Patient seen and examined. He denies any abdominal pain or discomfort. Had multiple BMs today. States abdomen feels better. OBJECTIVE: Period Temp Pulse Resp BP Sys/Roche Pulse Ox Last 24 Hr 97.5 F-98.2 F 61-80 18-20 127-144/65-71 95 GENERAL: The patient is awake, alert, and fully oriented HEAD: Normal with no signs of trauma. EYES: PERRL, extraocular movements intact, sclera anicteric, conjunctiva clear. No ptosis. ENT: Ears normal, nares patent, oropharynx clear without exudates, moist mucous membranes. NECK: Trachea midline, full range of motion, supple. LUNGS: Breath sounds equal ABDOMEN: less distended today, multiple bowel movements, very loose and soft PSYCH: Normal mood, normal affect. SKIN: Warm, dry, normal turgor, no rashes or lesions noted Laboratory Results - last 24 hr 09/06/16 09/09/16 09/10/16 07:00 15:30 08:25 WBC 7.4 D RBC 4.00 Hgb 12.6 Hct 37.9 MCV 94.6 MCHC 33.2 RDW 15.7 Plt Count 200 MPV 9.7 Neutrophils % 60.5 D Lymphocytes % 22.9 D Monocytes % 11.8 H Eosinophils % 3.5 D Basophils % 1.3 Sodium Potassium Chloride Carbon Dioxide Anion Gap BUN Creatinine Creat Clearance w eGFR Random Glucose Lactic Acid 1.006 Calcium Total Bilirubin AST ALT Alkaline Phosphatase Total Protein Albumin Hepatitis C Antibody 10.2 H 09/10/16 08:25 WBC RBC Hgb Hct MCV MCHC RDW Plt Count MPV Neutrophils % Lymphocytes % Monocytes % Eosinophils % Basophils % Sodium 139 Potassium 4.6 D Chloride 105 Carbon Dioxide 28 Anion Gap 6 L BUN 3 L D Creatinine 0.6 L Creat Clearance w eGFR > 60 Random Glucose 97 Lactic Acid Calcium 7.7 L Total Bilirubin 0.5 D AST 34 D ALT 20 Alkaline Phosphatase 73 Total Protein 6.3 L Albumin 2.9 L Hepatitis C Antibody Active Medications Generic Name Dose Route Start Last Admin Trade Name Freq PRN Reason Stop Dose Admin Acetaminophen 650 mg 09/05/16 09:06 Tylenol - PO Q4H PRN FEVER OR PAIN Albuterol/Ipratropium 1 amp 09/09/16 17:34 Duoneb - NEB Q6H PRN SHORTNESS OF BREATH Diazepam 10 mg 09/05/16 09:05 09/10/16 05:42 Valium - PO 10 mg TID PRN Administration muscle spasms Docusate Sodium 100 mg 09/09/16 22:00 09/10/16 13:54 Colace - PO Not Given TID [facility] Heparin Sodium (Porcine) 5,000 unit 09/05/16 14:00 09/10/16 13:54 Heparin - SQ Not Given TID [facility] Sodium Chloride 1,000 mls @ 100 mls/hr 09/08/16 10:15 09/10/16 14:01 Normal Saline - IV Not Given ASDIR [facility] Piperacillin Sod/Tazobactam Sod 50 mls @ 100 mls/hr 09/10/16 02:00 09/10/16 09: 30 Zosyn 3.375gm Ivpb (Pre-Docked) IVPB 100 mls/hr Q8H-IV [facility] Administration Lactobacillus Acidophilus 1 tab 09/10/16 14:45 Bacid - PO DAILY [facility] Magnesium Hydroxide 30 ml 09/07/16 17:52 09/10/16 09:30 Milk Of Magnesia - PO 30 ml DAILY PRN Administration CONSTIPATION Morphine Sulfate 10 mg 09/05/16 09:59 09/10/16 06:50 Morphine 10 Mg/5 Ml Liquid PO 10 mg Q4H PRN Administration PAIN Ondansetron HCl 4 mg 09/05/16 09:06 Zofran Injection IVPB Q6H PRN [facility] Polyethylene Glycol 17 gm 09/05/16 10:45 09/10/16 09:30 Miralax (For Daily Use) - PO 17 gm DAILY PRN Administration CONSTIPATION ASSESSMENT/PLAN: The patient is a 61 year old male with a significant past medical history of paraplegia below T2, COPD and recurrent UTIs who presents to the ED for a UTI. The patient was discharged home from the ED but returned because his TELEPHONE INFORMATION CLERK was not home. Patient denies any other symptoms. Had elevated lactic acid levels elevated yesterday and was treated with aggressive hydration of 1.5 liters of saline, Zosyn, Xray, and repeat labs. He was also re-cultured. : Urinary Tract Infection - chronic Assessment/Plan: Patient was being treated with PO Bactrim as outpatient, failed Bactrim therapy. He is now on Zosyn IV secondary to elevated Lactic acid levels. ID: Lactic Acidosis - acute Lactic levels elevated at 3.045 yestereda=ay, NS @500cc ordered x 1, followed by repeat 1 liter NS bolus. Repeat lactic acid 1.006. No fever overnight, WBC within normal limits Noted to have elevated band neutrophils. Blood cultures and urine cultures repeated Chest xray with no acute findings ID consulted, started on Zosyn Continue to monitor. GI: Abdominal distention - improving Assessment/Plan: Abdomen less distended, soft with +bowel sounds now, no tenderness, no pain. Multiple soft BMs today, started on Acidophilus CT of abdomen/pelvis: bibasilar atelectasis and new left lower lobe nodule of uncertain etiology, no evidence of bowel obstruction or acute pathology. Will need further workup of lower lobe nodule as outpatient Hep C antibody detection - plse follow up as outpatient Muscular/Skeletal: Paraplegia - chronic Assessment/Plan: Monitor skin integrity, turn and position q 2, high risk for skin breakdown Pt encouraged to shift his weight, will benefit from a bed trapeze. Monitor closely Pain Management - chronic Assessment/Plan: Continue morphine and Valium F.E.N. Fluids: Normal Saline at 100cc/hr maintenance fluids Electrolytes: within normal limits Can continue regular diet Prophylaxis: DVT: heparin TID SC GI: tap water enema as needed, no longer constipated Disposition. Continues to require inpatient hospitalization. Full Code. Coverage for Dr. Singer. Thank you for this opportunity. Visit type - Emergency Visit Emergency Visit: Yes ED Registration Date: 09/05/16 Care time: The patient presented to the Emergency Department on the above date and was hospitalized for further evaluation of their emergent condition. - New Patient This patient is new to me today: No - Critical Care Critical Care patient: No - Discharge Referral [facility]erred to [facility] No
[2016-09-10] MEDS: LACTOBACILLUS ACIDOPHILUS 1 EACH TAB (FP) PO SCH (15:32)
[2016-09-11] MEDS: SODIUM CHLORIDE 1,000 ML IV SCH ×2 (01:41→14:43)
[2016-09-11] MEDS: PIPERACILLIN/TAZOB 3.375 GM 50 ML IVPB SCH ×3 (02:35→17:21)
[2016-09-11] MEDS: HEPARIN NA (PORCINE) 5,000 UNITS/ML 1ML VIAL SQ SCH ×2 (06:06→14:44)
[2016-09-11] MEDS: DOCUSATE SODIUM 100 MG CAPSULE (FP) PO SCH ×3 (06:06→22:07)
[2016-09-11] MEDS: morphine SULFATE 10 MG/5 ML UNIT-DOSE CUP PO PRN ×3 (08:01→22:06)
[2016-09-11 08:47] LABS: BASOPHIL 0.9 % (0-2.0); EOSINOPHIL 7.1 % (0-4.5); MCH 31.3 pg (25.7-33.7); MCHC 33.5 g/dl (32.0-35.9); MEAN CELL VOLUME 93.4 fl (80-96); MEAN PLT VOLUME 9.5 fl (7.5-11.1); NEUTROPHILS 50.9 % (42.8-82.8); PLATELET COUNT 219 K/MM3 (134-434); RDW 15.5 % (11.9-15.9)
[2016-09-11] MEDS: LACTOBACILLUS ACIDOPHILUS 1 EACH TAB (FP) PO SCH (09:09)
[2016-09-11 09:18] LABS: ALBUMIN 2.7 g/dl (3.4-5.0); ANION GAP 10 (8-16); CALCIUM 7.6 mg/dL (8.5-10.1); CO2 27 mmol/L (21-32); CREATININE 0.5 mg/dL (0.7-1.3); GLUCOSE,RANDOM 86 mg/dL (74-106); SGOT/AST 19 U/L (15-37); SGPT/ALT 20 U/L (12-78)
[2016-09-11 09:20] LABS: ALK PHOS 64 U/L (45-117); BILIRUBIN,TOTAL 0.3 mg/dL (0.2-1.0); TOT PROT 5.9 g/dl (6.4-8.2)
[2016-09-11] MEDS: diazePAM 5 MG TABLET PO PRN (11:19)
--- NOTE | 2016-09-11 16:18 | PN ---
Physical Exam: SUBJECTIVE: Patient seen and examined. He has no active complaints. No fever, chills. OBJECTIVE: Vital Signs Period Temp Pulse Resp BP Sys/Roche Pulse Ox Last 24 Hr 97.8 F-98.7 F 67-82 17-20 132-140/67-76 94-100 PE: Neuro: alert, awake, cn 2-12intact Pulm: CTAB CV: s1 s2 rrr no mrg Abd: S NT ND +BS : condom catheter placed Ext: paraplegia, emaciated b/l le Laboratory Results - last 24 hr 09/11/16 09/11/16 08:00 08:00 WBC 6.0 RBC 3.96 L Hgb 12.4 Hct 37.0 MCV 93.4 MCHC 33.5 RDW 15.5 Plt Count 219 MPV 9.5 Neutrophils % 50.9 Lymphocytes % 26.9 Monocytes % 14.2 H Eosinophils % 7.1 H D Basophils % 0.9 Sodium 142 Potassium 3.6 D Chloride 105 Carbon Dioxide 27 Anion Gap 10 BUN 4 L D Creatinine 0.5 L Creat Clearance w eGFR > 60 Random Glucose 86 Calcium 7.6 L Total Bilirubin 0.3 D AST 19 D ALT 20 Alkaline Phosphatase 64 Total Protein 5.9 L Albumin 2.7 L Active Medications Generic Name Dose Route Start Last Admin Trade Name Leobardoq PRN Reason Stop Dose Admin Acetaminophen 650 mg 09/05/16 09:06 Tylenol - PO Q4H PRN FEVER OR PAIN Albuterol/Ipratropium 1 amp 09/09/16 17:34 Duoneb - NEB Q6H PRN SHORTNESS OF BREATH Diazepam 10 mg 09/05/16 09:05 09/11/16 11:19 Valium - PO 10 mg TID PRN Administration muscle spasms Docusate Sodium 100 mg 09/09/16 22:00 09/11/16 14:44 Colace - PO 100 mg TID [facility] Administration Heparin Sodium (Porcine) 5,000 unit 09/05/16 14:00 09/11/16 14:44 Heparin - SQ Not Given TID [facility] Sodium Chloride 1,000 mls @ 100 mls/hr 09/08/16 10:15 09/11/16 14:43 Normal Saline - IV 100 mls/hr ASDIR [facility] Administration Piperacillin Sod/Tazobactam Sod 50 mls @ 100 mls/hr 09/10/16 02:00 09/11/16 09: 09 Zosyn 3.375gm Ivpb (Pre-Docked) IVPB 100 mls/hr Q8H-IV [facility] Administration Lactobacillus Acidophilus 1 tab 09/10/16 14:45 09/11/16 09:09 Bacid - PO 1 tab DAILY [facility] Administration Magnesium Hydroxide 30 ml 09/07/16 17:52 09/10/16 09:30 Milk Of Magnesia - PO 30 ml DAILY PRN Administration CONSTIPATION Morphine Sulfate 10 mg 09/05/16 09:59 09/11/16 14:44 Morphine 10 Mg/5 Ml Liquid PO 10 mg Q4H PRN Administration PAIN Ondansetron HCl 4 mg 09/05/16 09:06 Zofran Injection IVPB Q6H PRN NAUSEA Polyethylene Glycol 17 gm 09/05/16 10:45 09/10/16 09:30 Miralax (For Daily Use) - PO 17 gm DAILY PRN Administration CONSTIPATION Assessment: 58 year old male with PMHx of splenectomy, traumatic spinal injury from a fall 1981 which 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 Plan: 1. Complicated UTI - Cont Zosyn - ID following 2. Elevated lactate - WNL 3. Psych - Discussed with home social media developer, who states for some time now patient has been having hallucinations, making up scenarios and bizarre situations. She is concerned and would like to have psych evaluate him. - Psych eval placed 4. DVT - Lovenox sq Visit type - Emergency Visit Emergency Visit: Yes ED Registration Date: 09/05/16 Care time: The patient presented to the Emergency Department on the above date and was hospitalized for further evaluation of their emergent condition. - New Patient This patient is new to me today: Yes Date on this admission: 09/11/16 - Critical Care Critical Care patient: No - Discharge Referral Referred to [facility] No
--- NOTE | 2016-09-11 16:53 | PN ---
Progress Note, Physician History of Present Illness: patient stable no new events noted from the notes about patient having hallucinations - Current Medication List Current Medications: Active Medications Acetaminophen (Tylenol -) 650 mg PO Q4H PRN PRN Reason: FEVER OR PAIN Albuterol/Ipratropium (Duoneb -) 1 amp NEB Q6H PRN PRN Reason: SHORTNESS OF BREATH Diazepam (Valium -) 10 mg PO TID PRN PRN Reason: muscle spasms Last Admin: 09/11/16 11:19 Dose: 10 mg Docusate Sodium (Colace -) 100 mg PO TID [facility] Last Admin: 09/11/16 14:44 Dose: 100 mg Enoxaparin Sodium (Lovenox -) 40 mg SQ DAILY [facility] Piperacillin Sod/Tazobactam Sod (Zosyn 3.375gm Ivpb (Pre-Docked)) 50 mls @ 100 mls/hr IVPB Q8H-IV [facility] Last Admin: 09/11/16 09:09 Dose: 100 mls/hr Lactobacillus Acidophilus (Bacid -) 1 tab PO DAILY [facility] Last Admin: 09/11/16 09:09 Dose: 1 tab Magnesium Hydroxide (Milk Of Magnesia -) 30 ml PO DAILY PRN PRN Reason: CONSTIPATION Last Admin: 09/10/16 09:30 Dose: 30 ml Morphine Sulfate (Morphine 10 Mg/5 Ml Liquid) 10 mg PO Q4H PRN PRN Reason: PAIN Last Admin: 09/11/16 14:44 Dose: 10 mg Ondansetron HCl (Zofran Injection) 4 mg IVPB Q6H PRN PRN Reason: NAUSEA Polyethylene Glycol (Miralax (For Daily Use) -) 17 gm PO DAILY PRN PRN Reason: CONSTIPATION Last Admin: 09/10/16 09:30 Dose: 17 gm - Objective Vital Signs: Vital Signs Temperature 97.8 F 09/11/16 13:52 Pulse Rate 67 09/11/16 13:52 Respiratory Rate 17 09/11/16 13:52 Blood Pressure 140/76 09/11/16 05:40 O2 Sat by Pulse Oximetry (%) 100 09/11/16 09:00 Constitutional: Yes: No Distress, Calm Cardiovascular: Yes: Regular Rate and Rhythm Respiratory: Yes: Regular, CTA Bilaterally Gastrointestinal: Yes: Normal Bowel Sounds, Soft Extremities: Yes: Other Labs: CBC, BMP 09/11/16 08:00 09/11/16 08:00 Assessment/Plan Assessment/Plan (1) Complicated UTI (urinary tract infection) Code: N39.0 paraplegia deformities recurrent uti plan continue zosyn hydration
[2016-09-12] MEDS: PIPERACILLIN/TAZOB 3.375 GM 50 ML IVPB SCH ×3 (01:44→18:39)
[2016-09-12] MEDS: morphine SULFATE 10 MG/5 ML UNIT-DOSE CUP PO PRN ×4 (02:37→21:21)
[2016-09-12] MEDS: DOCUSATE SODIUM 100 MG CAPSULE (FP) PO SCH ×3 (06:16→21:29)
[2016-09-12] MEDS: diazePAM 5 MG TABLET PO PRN ×3 (06:42→23:16)
[2016-09-12 08:17] LABS: BASOPHIL 0.8 % (0-2.0); EOSINOPHIL 11.1 % (0-4.5); MCHC 33.1 g/dl (32.0-35.9); MEAN CELL VOLUME 93.5 fl (80-96); MEAN PLT VOLUME 9.4 fl (7.5-11.1); PLATELET COUNT 241 K/MM3 (134-434); RDW 15.5 % (11.9-15.9); WHITE BLOOD COUNT 6.6 K/mm3 (4.0-10.0)
[2016-09-12 08:36] LABS: CREATININE 0.6 mg/dL (0.7-1.3); MAGNESIUM 2.1 mg/dL (1.8-2.4)
[2016-09-12] MEDS: LACTOBACILLUS ACIDOPHILUS 1 EACH TAB (FP) PO SCH (10:05)
[2016-09-12] MEDS: ENOXAPARIN NA (PORCINE) 40 MG/0.4 ML DISP.SYRIN SQ SCH (10:05)
--- NOTE | 2016-09-12 15:11 | CONSULT ---
Psychiatry Consult Chief Complaint: Peports of hallucinations and paranoia on and off. Patient reports drinking alcohol and smoking [place] . Also on Morphine and Valium. - Previous Psychiatric Treatment Outpatient: None Inpatient: None - Previous Substance Abuse Treatment Outpatient: None Inpatient: None - Family History Family History: Unremarkable - Current Medications Current Medications: Active Medications Acetaminophen (Tylenol -) 650 mg PO Q4H PRN PRN Reason: FEVER OR PAIN Albuterol/Ipratropium (Duoneb -) 1 amp NEB Q6H PRN PRN Reason: SHORTNESS OF BREATH Diazepam (Valium -) 10 mg PO TID PRN PRN Reason: muscle spasms Last Admin: 09/12/16 06:42 Dose: 10 mg Docusate Sodium (Colace -) 100 mg PO TID [facility] Last Admin: 09/12/16 15:04 Dose: Not Given Enoxaparin Sodium (Lovenox -) 40 mg SQ DAILY [facility] Last Admin: 09/12/16 10:05 Dose: 40 mg Piperacillin Sod/Tazobactam Sod (Zosyn 3.375gm Ivpb (Pre-Docked)) 50 mls @ 100 mls/hr IVPB Q8H-IV [facility] Last Admin: 09/12/16 10:05 Dose: 100 mls/hr Lactobacillus Acidophilus (Bacid -) 1 tab PO DAILY [facility] Last Admin: 09/12/16 10:05 Dose: 1 tab Magnesium Hydroxide (Milk Of Magnesia -) 30 ml PO DAILY PRN PRN Reason: CONSTIPATION Last Admin: 09/10/16 09:30 Dose: 30 ml Morphine Sulfate (Morphine 10 Mg/5 Ml Liquid) 10 mg PO Q4H PRN PRN Reason: PAIN Last Admin: 09/12/16 06:40 Dose: 10 mg Ondansetron HCl (Zofran Injection) 4 mg IVPB Q6H PRN PRN Reason: NAUSEA Polyethylene Glycol (Miralax (For Daily Use) -) 17 gm PO DAILY PRN PRN Reason: CONSTIPATION Last Admin: 09/10/16 09:30 Dose: 17 gm - Allergies Allergies: Allergies Allergy/AdvReac Type Severity Reaction Status Date / Time No Known Allergies Allergy Verified 09/05/16 04:32 - Current Living Status Usual Living Arrangement: With Significant Other - Current Mental Status Evaluation Appearance: Well Groomed Attitude: Cooperative - Affect Affect: Full Range Appropriateness: Appropriate to Content - Mood Mood: Euthymic - Speech/Language Expressive: Coherent - Thought Process Thought Process: Intact - Thought Content Hallucinations: Absent Delusions: Absent - Self Perception Self Perception: No Impairment - Cognition Attention: Alert Orientation: Time Memory, Immediate Recall: Intact Memory, Short Term: 2/3 Memory, Remote with Promptin/3 - Concentration Serial Sevens Intact: Yes Simple Calculations Intact: Yes - Abstraction Judgement: Intact - Insight Insight: Intact - Impulse Control Impulse Control: Good Control - Suicidal Ideation Suicidal Ideation: No - Homicidal Ideation Homicidal Ideation: No Assessment/Plan there is no on going Psychotic Disoder in this patient. episodic psychotic like behaviour probably is being precipitated by the combination of Morphine, Valium, alcohol, Marijuana. No need for Psych Meds at tyhis time.
--- NOTE | 2016-09-12 17:11 | PN ---
Progress Note, Physician Chief Complaint: Mr Valenzuela says he feels well and is without complaint. No further bladder pain. Chronic pain controlled. No cp, sob, n/v. - Current Medication List Current Medications: Active Medications Acetaminophen (Tylenol -) 650 mg PO Q4H PRN PRN Reason: FEVER OR PAIN Albuterol/Ipratropium (Duoneb -) 1 amp NEB Q6H PRN PRN Reason: SHORTNESS OF BREATH Diazepam (Valium -) 10 mg PO TID PRN PRN Reason: muscle spasms Last Admin: 09/12/16 06:42 Dose: 10 mg Docusate Sodium (Colace -) 100 mg PO TID [facility] Last Admin: 09/12/16 15:04 Dose: Not Given Enoxaparin Sodium (Lovenox -) 40 mg SQ DAILY [facility] Last Admin: 09/12/16 10:05 Dose: 40 mg Piperacillin Sod/Tazobactam Sod (Zosyn 3.375gm Ivpb (Pre-Docked)) 50 mls @ 100 mls/hr IVPB Q8H-IV [facility] Last Admin: 09/12/16 10:05 Dose: 100 mls/hr Lactobacillus Acidophilus (Bacid -) 1 tab PO DAILY [facility] Last Admin: 09/12/16 10:05 Dose: 1 tab Magnesium Hydroxide (Milk Of Magnesia -) 30 ml PO DAILY PRN PRN Reason: CONSTIPATION Last Admin: 09/10/16 09:30 Dose: 30 ml Morphine Sulfate (Morphine 10 Mg/5 Ml Liquid) 10 mg PO Q4H PRN PRN Reason: PAIN Last Admin: 09/12/16 15:42 Dose: 10 mg Ondansetron HCl (Zofran Injection) 4 mg IVPB Q6H PRN PRN Reason: NAUSEA Polyethylene Glycol (Miralax (For Daily Use) -) 17 gm PO DAILY PRN PRN Reason: CONSTIPATION Last Admin: 09/10/16 09:30 Dose: 17 gm - Objective Vital Signs: Vital Signs Temperature 98.0 F 09/12/16 13:39 Pulse Rate 62 09/12/16 13:39 Respiratory Rate 17 09/12/16 13:39 Blood Pressure 82/42 09/12/16 10:00 O2 Sat by Pulse Oximetry (%) 96 09/12/16 09:00 Constitutional: Yes: Well Nourished, No Distress, Calm Cardiovascular: Yes: Regular Rate and Rhythm. No: Gallop, Murmur, Rub Respiratory: Yes: Regular, CTA Bilaterally. No: Rales, Rhonchi, Wheezes Gastrointestinal: Yes: Normal Bowel Sounds, Soft. No: Distention, Tenderness Extremities: Yes: WNL Edema: No Labs: CBC, BMP 09/12/16 07:35 09/12/16 07:35 Problem List - Problems (1) Complicated UTI (urinary tract infection) Code(s): N39.0 - URINARY TRACT INFECTION, SITE NOT SPECIFIED (2) Paraplegia Code(s): G82.20 - PARAPLEGIA, UNSPECIFIED (3) Chronic pain Code(s): G89.29 - OTHER CHRONIC PAIN Assessment/Plan (1) Complicated UTI (urinary tract infection) Assessment/Plan: -appreciate ID assistance -currently on zosyn -cultures negative -defer to ID about when to stop antibiotics Code(s): N39.0 - URINARY TRACT INFECTION, SITE NOT SPECIFIED (2) Paraplegia Assessment/Plan: -chronic Code(s): G82.20 - PARAPLEGIA, UNSPECIFIED (3) Chronic pain Assessment/Plan: -continue home dose of morphine and valium for pain and spasm Code(s): G89.29 - OTHER CHRONIC PAIN
--- NOTE | 2016-09-12 17:33 | PN ---
Progress Note, Physician History of Present Illness: patient stable no new events - Current Medication List Current Medications: Active Medications Acetaminophen (Tylenol -) 650 mg PO Q4H PRN PRN Reason: FEVER OR PAIN Albuterol/Ipratropium (Duoneb -) 1 amp NEB Q6H PRN PRN Reason: SHORTNESS OF BREATH Diazepam (Valium -) 10 mg PO TID PRN PRN Reason: muscle spasms Last Admin: 09/12/16 06:42 Dose: 10 mg Docusate Sodium (Colace -) 100 mg PO TID [facility] Last Admin: 09/12/16 15:04 Dose: Not Given Enoxaparin Sodium (Lovenox -) 40 mg SQ DAILY [facility] Last Admin: 09/12/16 10:05 Dose: 40 mg Piperacillin Sod/Tazobactam Sod (Zosyn 3.375gm Ivpb (Pre-Docked)) 50 mls @ 100 mls/hr IVPB Q8H-IV [facility] Last Admin: 09/12/16 10:05 Dose: 100 mls/hr Lactobacillus Acidophilus (Bacid -) 1 tab PO DAILY [facility] Last Admin: 09/12/16 10:05 Dose: 1 tab Magnesium Hydroxide (Milk Of Magnesia -) 30 ml PO DAILY PRN PRN Reason: CONSTIPATION Last Admin: 09/10/16 09:30 Dose: 30 ml Morphine Sulfate (Morphine 10 Mg/5 Ml Liquid) 10 mg PO Q4H PRN PRN Reason: PAIN Last Admin: 09/12/16 15:42 Dose: 10 mg Ondansetron HCl (Zofran Injection) 4 mg IVPB Q6H PRN PRN Reason: NAUSEA Polyethylene Glycol (Miralax (For Daily Use) -) 17 gm PO DAILY PRN PRN Reason: CONSTIPATION Last Admin: 09/10/16 09:30 Dose: 17 gm - Objective Vital Signs: Vital Signs Temperature 98.0 F 09/12/16 13:39 Pulse Rate 62 09/12/16 13:39 Respiratory Rate 17 09/12/16 13:39 Blood Pressure 82/42 09/12/16 10:00 O2 Sat by Pulse Oximetry (%) 96 09/12/16 09:00 Constitutional: Yes: No Distress, Calm Cardiovascular: Yes: Regular Rate and Rhythm Respiratory: Yes: Regular, CTA Bilaterally Gastrointestinal: Yes: Normal Bowel Sounds, Soft Musculoskeletal: Yes: WNL Extremities: Yes: Other Neurological: Yes: Alert, Oriented Psychiatric: Yes: Alert Labs: CBC, BMP 09/12/16 07:35 09/12/16 07:35 Assessment/Plan Assessment/Plan (1) Complicated UTI (urinary tract infection) Code: N39.0 paraplegia deformities recurrent uti plan continue zosyn hydration i think patient is close to his baseline we will give him one more day of abx tomorrow and then will stop it
[2016-09-13] MEDS: PIPERACILLIN/TAZOB 3.375 GM 50 ML IVPB SCH ×3 (02:02→17:11)
[2016-09-13] MEDS: morphine SULFATE 10 MG/5 ML UNIT-DOSE CUP PO PRN ×4 (02:17→20:32)
[2016-09-13] MEDS: DOCUSATE SODIUM 100 MG CAPSULE (FP) PO SCH ×3 (05:03→22:33)
[2016-09-13 07:51] LABS: BASOPHIL 0.7 % (0-2.0); EOSINOPHIL 7.8 % (0-4.5); MCH 31.8 pg (25.7-33.7); MEAN CELL VOLUME 93.4 fl (80-96); MEAN PLT VOLUME 9.3 fl (7.5-11.1); NEUTROPHILS 50.9 % (42.8-82.8); PLATELET COUNT 305 K/MM3 (134-434); RDW 15.3 % (11.9-15.9); WHITE BLOOD COUNT 7.4 K/mm3 (4.0-10.0)
[2016-09-13 08:34] LABS: CALCIUM 8.3 mg/dL (8.5-10.1); CREATININE 0.6 mg/dL (0.7-1.3); MAGNESIUM 2.2 mg/dL (1.8-2.4); PHOSPHOROUS 2.9 mg/dL (2.5-4.9)
[2016-09-13] MEDS: LACTOBACILLUS ACIDOPHILUS 1 EACH TAB (FP) PO SCH (09:23)
[2016-09-13] MEDS: ENOXAPARIN NA (PORCINE) 40 MG/0.4 ML DISP.SYRIN SQ SCH (09:24)
[2016-09-13] MEDS: diazePAM 5 MG TABLET PO PRN (12:39)
--- NOTE | 2016-09-13 15:57 | PN ---
Progress Note, Physician History of Present Illness: patient stable patient having dirrhoea stool send for cdiff - Current Medication List Current Medications: Active Medications Acetaminophen (Tylenol -) 650 mg PO Q4H PRN PRN Reason: FEVER OR PAIN Albuterol/Ipratropium (Duoneb -) 1 amp NEB Q6H PRN PRN Reason: SHORTNESS OF BREATH Diazepam (Valium -) 10 mg PO TID PRN PRN Reason: muscle spasms Last Admin: 09/13/16 12:39 Dose: 10 mg Docusate Sodium (Colace -) 100 mg PO TID [facility] Last Admin: 09/13/16 13:00 Dose: Not Given Enoxaparin Sodium (Lovenox -) 40 mg SQ DAILY [facility] Last Admin: 09/13/16 09:24 Dose: Not Given Piperacillin Sod/Tazobactam Sod (Zosyn 3.375gm Ivpb (Pre-Docked)) 50 mls @ 100 mls/hr IVPB Q8H-IV [facility] Last Admin: 09/13/16 09:23 Dose: 100 mls/hr Lactobacillus Acidophilus (Bacid -) 1 tab PO DAILY [facility] Last Admin: 09/13/16 09:23 Dose: 1 tab Magnesium Hydroxide (Milk Of Magnesia -) 30 ml PO DAILY PRN PRN Reason: CONSTIPATION Last Admin: 09/10/16 09:30 Dose: 30 ml Morphine Sulfate (Morphine 10 Mg/5 Ml Liquid) 10 mg PO Q4H PRN PRN Reason: PAIN Last Admin: 09/13/16 14:41 Dose: 10 mg Ondansetron HCl (Zofran Injection) 4 mg IVPB Q6H PRN PRN Reason: NAUSEA Polyethylene Glycol (Miralax (For Daily Use) -) 17 gm PO DAILY PRN PRN Reason: CONSTIPATION Last Admin: 09/10/16 09:30 Dose: 17 gm - Objective Vital Signs: Vital Signs Temperature 97.9 F 09/13/16 14:00 Pulse Rate 72 09/13/16 14:00 Respiratory Rate 17 09/13/16 14:00 Blood Pressure 132/67 09/13/16 09:00 O2 Sat by Pulse Oximetry (%) 94 L 09/13/16 09:00 Constitutional: Yes: No Distress, Calm HENT: Yes: Atraumatic Cardiovascular: Yes: Regular Rate and Rhythm Respiratory: Yes: Regular, CTA Bilaterally Extremities: Yes: Other Labs: CBC, BMP 09/13/16 06:30 09/13/16 06:30 Assessment/Plan Assessment/Plan (1) Complicated UTI (urinary tract infection) Code: N39.0 paraplegia deformities recurrent uti plan can stop all abx tomorrow patient stable await cx report
--- NOTE | 2016-09-13 16:49 | PN ---
Progress Note, Physician Chief Complaint: Patient complains of diarrhea. Denies cp, sob, n/v. - Current Medication List Current Medications: Active Medications Acetaminophen (Tylenol -) 650 mg PO Q4H PRN PRN Reason: FEVER OR PAIN Albuterol/Ipratropium (Duoneb -) 1 amp NEB Q6H PRN PRN Reason: SHORTNESS OF BREATH Diazepam (Valium -) 10 mg PO TID PRN PRN Reason: muscle spasms Last Admin: 09/13/16 12:39 Dose: 10 mg Docusate Sodium (Colace -) 100 mg PO TID [facility] Last Admin: 09/13/16 13:00 Dose: Not Given Enoxaparin Sodium (Lovenox -) 40 mg SQ DAILY [facility] Last Admin: 09/13/16 09:24 Dose: Not Given Piperacillin Sod/Tazobactam Sod (Zosyn 3.375gm Ivpb (Pre-Docked)) 50 mls @ 100 mls/hr IVPB Q8H-IV [facility] Last Admin: 09/13/16 09:23 Dose: 100 mls/hr Lactobacillus Acidophilus (Bacid -) 1 tab PO DAILY [facility] Last Admin: 09/13/16 09:23 Dose: 1 tab Magnesium Hydroxide (Milk Of Magnesia -) 30 ml PO DAILY PRN PRN Reason: CONSTIPATION Last Admin: 09/10/16 09:30 Dose: 30 ml Morphine Sulfate (Morphine 10 Mg/5 Ml Liquid) 10 mg PO Q4H PRN PRN Reason: PAIN Last Admin: 09/13/16 14:41 Dose: 10 mg Ondansetron HCl (Zofran Injection) 4 mg IVPB Q6H PRN PRN Reason: NAUSEA Polyethylene Glycol (Miralax (For Daily Use) -) 17 gm PO DAILY PRN PRN Reason: CONSTIPATION Last Admin: 09/10/16 09:30 Dose: 17 gm - Objective Vital Signs: Vital Signs Temperature 97.9 F 09/13/16 14:00 Pulse Rate 72 09/13/16 14:00 Respiratory Rate 09/13/16 14:00 Blood Pressure 132/67 09/13/16 09:00 O2 Sat by Pulse Oximetry (%) 94 L 09/13/16 09:00 Constitutional: Yes: Well Nourished, No Distress, Calm Cardiovascular: Yes: Regular Rate and Rhythm. No: Gallop, Murmur, Rub Respiratory: Yes: Regular, CTA Bilaterally. No: Rales, Rhonchi, Wheezes Gastrointestinal: Yes: Normal Bowel Sounds, Soft. No: Distention, Tenderness Musculoskeletal: Yes: WNL Edema: No Labs: CBC, BMP 09/13/16 06:30 09/13/16 06:30 Problem List - Problems (1) Complicated UTI (urinary tract infection) Code(s): N39.0 - URINARY TRACT INFECTION, SITE NOT SPECIFIED (2) Paraplegia Code(s): G82.20 - PARAPLEGIA, UNSPECIFIED (3) Chronic pain Code(s): G89.29 - OTHER CHRONIC PAIN Assessment/Plan (1) Complicated UTI (urinary tract infection) Assessment/Plan: -ID following -monitor off of antibiotics Code(s): N39.0 - URINARY TRACT INFECTION, SITE NOT SPECIFIED (2) Paraplegia Assessment/Plan: -chronic Code(s): G82.20 - PARAPLEGIA, UNSPECIFIED (3) Chronic pain Assessment/Plan: -continue home dose of morphine and valium for pain and spasm Code(s): G89.29 - OTHER CHRONIC PAIN (4) Diarrhea -check for c. diff -if positive, start oral vancomycin vs flagyl. defer to ID -if negative, supportive care Dispo -plan for discharge this weekend pending c. diff results
[2016-09-13] MEDS ORDERED: SODIUM PHOSPHATE/NA BIPHOS 133 ML ENEMA RC ONE (21:45)
[2016-09-14] MEDS: morphine SULFATE 10 MG/5 ML UNIT-DOSE CUP PO PRN ×4 (00:14→21:55)
[2016-09-14] MEDS: PIPERACILLIN/TAZOB 3.375 GM 50 ML IVPB SCH ×2 (02:39→09:29)
[2016-09-14] MEDS: DOCUSATE SODIUM 100 MG CAPSULE (FP) PO SCH ×3 (06:29→21:55)
[2016-09-14 09:22] LABS: EOSINOPHIL 7.3 % (0-4.5); MCHC 32.8 g/dl (32.0-35.9); MEAN CELL VOLUME 94.3 fl (80-96); MEAN PLT VOLUME 9.7 fl (7.5-11.1); NEUTROPHILS 49.1 % (42.8-82.8); PLATELET COUNT 366 K/MM3 (134-434); RDW 15.5 % (11.9-15.9); WHITE BLOOD COUNT 6.4 K/mm3 (4.0-10.0)
[2016-09-14 09:23] LABS: BASOPHIL 0.1 % (0-2.0)
[2016-09-14] MEDS: diazePAM 5 MG TABLET PO PRN (09:28)
[2016-09-14] MEDS: LACTOBACILLUS ACIDOPHILUS 1 EACH TAB (FP) PO SCH (09:28)
[2016-09-14] MEDS: ENOXAPARIN NA (PORCINE) 40 MG/0.4 ML DISP.SYRIN SQ SCH (09:29)
[2016-09-14 09:43] LABS: CALCIUM 8.6 mg/dL (8.5-10.1); CREATININE 0.6 mg/dL (0.7-1.3); MAGNESIUM 2.1 mg/dL (1.8-2.4); PHOSPHOROUS 2.7 mg/dL (2.5-4.9)
--- NOTE | 2016-09-14 14:38 | PN ---
Progress Note, Physician History of Present Illness: doing well some discomfort suprapubic region - Current Medication List Current Medications: Active Medications Acetaminophen (Tylenol -) 650 mg PO Q4H PRN PRN Reason: FEVER OR PAIN Albuterol/Ipratropium (Duoneb -) 1 amp NEB Q6H PRN PRN Reason: SHORTNESS OF BREATH Diazepam (Valium -) 10 mg PO TID PRN PRN Reason: muscle spasms Last Admin: 09/14/16 09:28 Dose: 10 mg Docusate Sodium (Colace -) 100 mg PO TID [facility] Last Admin: 09/14/16 14:17 Dose: Not Given Enoxaparin Sodium (Lovenox -) 40 mg SQ DAILY [facility] Last Admin: 09/14/16 09:29 Dose: Not Given Piperacillin Sod/Tazobactam Sod (Zosyn 3.375gm Ivpb (Pre-Docked)) 50 mls @ 100 mls/hr IVPB Q8H-IV [facility] Last Admin: 09/14/16 09:29 Dose: 100 mls/hr Lactobacillus Acidophilus (Bacid -) 1 tab PO DAILY [facility] Last Admin: 09/14/16 09:28 Dose: 1 tab Magnesium Hydroxide (Milk Of Magnesia -) 30 ml PO DAILY PRN PRN Reason: CONSTIPATION Last Admin: 09/10/16 09:30 Dose: 30 ml Morphine Sulfate (Morphine 10 Mg/5 Ml Liquid) 10 mg PO Q4H PRN PRN Reason: PAIN Last Admin: 09/14/16 14:20 Dose: 10 mg Ondansetron HCl (Zofran Injection) 4 mg IVPB Q6H PRN PRN Reason: NAUSEA Polyethylene Glycol (Miralax (For Daily Use) -) 17 gm PO DAILY PRN PRN Reason: CONSTIPATION Last Admin: 09/10/16 09:30 Dose: 17 gm - Objective Vital Signs: Vital Signs Temperature 98 F 09/14/16 08:00 Pulse Rate 59 L 09/14/16 12:26 Respiratory Rate 20 09/14/16 08:00 Blood Pressure 133/67 09/14/16 08:00 O2 Sat by Pulse Oximetry (%) 93 L 09/14/16 12:26 Constitutional: Yes: No Distress, Calm Cardiovascular: Yes: Regular Rate and Rhythm Respiratory: Yes: Regular, CTA Bilaterally Gastrointestinal: Yes: Normal Bowel Sounds, Soft Genitourinary: Yes: Other Extremities: Yes: Other Neurological: Yes: Alert, Oriented Psychiatric: Yes: Alert Labs: CBC, BMP 09/14/16 08:00 09/14/16 08:00 Assessment/Plan Assessment/Plan (1) Complicated UTI (urinary tract infection) Code: N39.0 paraplegia deformities recurrent uti plan stop all abx patient stable cdiff negative
--- NOTE | 2016-09-14 19:41 | PN ---
Progress Note (short form) - Note Progress Note: C/O redness in the buttocks Loose stools are better Has no fever O/E Heart regular Lungs clear Abd soft Ext no edema Slight redness in the left half of the buttocks+ Vital Signs Period Temp Pulse Resp BP Sys/Roche Pulse Ox Last 24 Hr 97.7 F-98.1 F 47-94 20-20 133-153/67-73 93-96 Current Medications Acetaminophen (Tylenol -) 650 mg PO Q4H PRN PRN Reason: FEVER OR PAIN Albuterol/Ipratropium (Duoneb -) 1 amp NEB Q6H PRN PRN Reason: SHORTNESS OF BREATH Diazepam (Valium -) 10 mg PO TID PRN PRN Reason: muscle spasms Last Admin: 09/14/16 09:28 Dose: 10 mg Docusate Sodium (Colace -) 100 mg PO TID [facility] Last Admin: 09/14/16 14:17 Dose: Not Given Enoxaparin Sodium (Lovenox -) 40 mg SQ DAILY [facility] Last Admin: 09/14/16 09:29 Dose: Not Given Lactobacillus Acidophilus (Bacid -) 1 tab PO DAILY [facility] Last Admin: 09/14/16 09:28 Dose: 1 tab Magnesium Hydroxide (Milk Of Magnesia -) 30 ml PO DAILY PRN PRN Reason: CONSTIPATION Last Admin: 09/10/16 09:30 Dose: 30 ml Morphine Sulfate (Morphine 10 Mg/5 Ml Liquid) 10 mg PO Q4H PRN PRN Reason: PAIN Last Admin: 09/14/16 14:20 Dose: 10 mg Ondansetron HCl (Zofran Injection) 4 mg IVPB Q6H PRN PRN Reason: NAUSEA Polyethylene Glycol (Miralax (For Daily Use) -) 17 gm PO DAILY PRN PRN Reason: CONSTIPATION Last Admin: 09/10/16 09:30 Dose: 17 gm Laboratory Last Values WBC 6.4 K/mm3 (4.0-10.0) 09/14/16 08:00 RBC 4.31 M/mm3 (4.00-5.60) 09/14/16 08:00 Hgb 13.4 GM/dL (11.7-16.9) 09/14/16 08:00 Hct 40.7 % (35.4-49) 09/14/16 08:00 MCV 94.3 fl (80-96) 09/14/16 08:00 MCHC 32.8 g/dl (32.0-35.9) 09/14/16 08:00 RDW 15.5 % (11.9-15.9) 09/14/16 08:00 Plt Count 366 K/MM3 (134-434) 09/14/16 08:00 MPV 9.7 fl (7.5-11.1) 09/14/16 08:00 Neutrophils % 49.1 % (42.8-82.8) 09/14/16 08:00 Lymphocytes % 30.8 % (8-40) D 09/14/16 08:00 Monocytes % 12.0 % (3.8-10.2) H 09/14/16 08:00 Eosinophils % 7.3 % (0-4.5) H 09/14/16 08:00 Basophils % 0.1 % (0-2.0) 09/14/16 08:00 Band Neutrophils 14.0 % (0-10) H D 09/08/16 06:00 Differential Comment Manual diff done 09/06/16 07:00 Reactive Lymphocytes 2 % (0-80) D 09/06/16 07:00 Platelet Estimate Adequate (NORMAL) 09/07/16 08:45 Platelet Comment No clumping noted 09/07/16 08:45 Platelet Comment No clotting detected 09/07/16 08:45 RBC Morphology Appears normal 09/07/16 08:45 Sodium 140 mmol/L (136-145) 09/14/16 08:00 Potassium 4.0 mmol/L (3.5-5.1) 09/14/16 08:00 Chloride 103 mmol/L (98-107) 09/14/16 08:00 Carbon Dioxide 29 mmol/L (21-32) 09/14/16 08:00 Anion Gap 8 (8-16) 09/14/16 08:00 BUN 4 mg/dL (7-18) L 09/14/16 08:00 Creatinine 0.6 mg/dL (0.7-1.3) L 09/14/16 08:00 Creat Clearance w eGFR > 60 (>60) 09/11/16 08:00 Random Glucose 93 mg/dL (74-106) 09/14/16 08:00 Lactic Acid 1.006 mmol/L (0.4-2.0) 09/09/16 15:30 Calcium 8.6 mg/dL (8.5-10.1) 09/14/16 08:00 Phosphorus 2.7 mg/dL (2.5-4.9) 09/14/16 08:00 Magnesium 2.1 mg/dL (1.8-2.4) 09/14/16 08:00 Total Bilirubin 0.3 mg/dL (0.2-1.0) D 09/11/16 08:00 AST 19 U/L (15-37) D 09/11/16 08:00 ALT 20 U/L (12-78) 09/11/16 08:00 Alkaline Phosphatase 64 U/L (45-117) 09/11/16 08:00 Total Protein 5.9 g/dl (6.4-8.2) L 09/11/16 08:00 Albumin 2.7 g/dl (3.4-5.0) L 09/11/16 08:00 Urine Color Straw 09/09/16 12:15 Urine Appearance Slcloudy 09/09/16 12:15 Urine pH 7.0 (5.0-8.0) 09/09/16 12:15 Ur Specific [place] 1.003 (1.001-1.035) 09/09/16 12:15 Urine Protein Negative (NEGATIVE) 09/09/16 12:15 Urine Glucose (UA) Negative (NEGATIVE) 09/09/16 12:15 Urine Ketones Negative (NEGATIVE) 09/09/16 12:15 Urine Blood 1+ (NEGATIVE) H 09/09/16 12:15 Urine Nitrite Negative (NEGATIVE) 09/09/16 12:15 Urine Bilirubin Negative (NEGATIVE) 09/09/16 12:15 Urine Urobilinogen Negative E.U./dl (0.2-1.0) 09/09/16 12:15 Ur Leukocyte Esterase 3+ (NEGATIVE) H 09/09/16 12:15 Urine RBC 7 /hpf (0-3) 09/09/16 12:15 Urine WBC 54 /hpf (3-5) 09/09/16 12:15 Ur Epithelial Cells Rare /hpf (FEW) 09/09/16 12:15 Urine Bacteria Few /hpf (NONE SEEN) 09/09/16 12:15 Hyaline Casts 1 /lpf 09/09/16 12:15 Urine Mucus Rare 09/09/16 12:15 Urine Yeast Many 09/09/16 12:15 Hepatitis C Antibody 10.2 s/co ratio (0.0-0.9) H 09/06/16 07:00 A&P Assessment/Plan (1) Complicated UTI (urinary tract infection) Assessment/Plan: No fever Code(s): N39.0 - URINARY TRACT INFECTION, SITE NOT SPECIFIED (2) Paraplegia Assessment/Plan: -chronic Code(s): G82.20 - PARAPLEGIA, UNSPECIFIED (3) Chronic pain Assessment/Plan: -continue home dose of morphine and valium for pain and spasm Code(s): G89.29 - OTHER CHRONIC PAIN (4) Diarrhea -C.Diff negative Dispo -wants to go home on Friday when 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
[2016-09-15] MEDS: DOCUSATE SODIUM 100 MG CAPSULE (FP) PO SCH ×3 (05:06→21:53)
[2016-09-15] MEDS: morphine SULFATE 10 MG/5 ML UNIT-DOSE CUP PO PRN ×4 (05:20→20:56)
[2016-09-15] MEDS: diazePAM 5 MG TABLET PO PRN (07:58)
[2016-09-15] MEDS: LACTOBACILLUS ACIDOPHILUS 1 EACH TAB (FP) PO SCH (10:10)
[2016-09-15] MEDS: ENOXAPARIN NA (PORCINE) 40 MG/0.4 ML DISP.SYRIN SQ SCH (10:12)
--- NOTE | 2016-09-15 13:21 | PN ---
Progress Note (short form) - Note Progress Note: Mild lower abd pain+ No fever No loose stools O/E Heart regular Lungs clear Abd soft Ext no edema Vital Signs Period Temp Pulse Resp BP Sys/Roche Pulse Ox Last 24 Hr 97.4 F-98.6 F 51-92 18-20 118-130/65-75 98 Current Medications Acetaminophen (Tylenol -) 650 mg PO Q4H PRN PRN Reason: FEVER OR PAIN Albuterol/Ipratropium (Duoneb -) 1 amp NEB Q6H PRN PRN Reason: SHORTNESS OF BREATH Diazepam (Valium -) 10 mg PO TID PRN PRN Reason: muscle spasms Last Admin: 09/15/16 07:58 Dose: 10 mg Docusate Sodium (Colace -) 100 mg PO TID [facility] Last Admin: 09/15/16 13:09 Dose: Not Given Enoxaparin Sodium (Lovenox -) 40 mg SQ DAILY [facility] Last Admin: 09/15/16 10:12 Dose: Not Given Lactobacillus Acidophilus (Bacid -) 1 tab PO DAILY [facility] Last Admin: 09/15/16 10:10 Dose: 1 tab Magnesium Hydroxide (Milk Of Magnesia -) 30 ml PO DAILY PRN PRN Reason: CONSTIPATION Last Admin: 09/10/16 09:30 Dose: 30 ml Morphine Sulfate (Morphine 10 Mg/5 Ml Liquid) 10 mg PO Q4H PRN PRN Reason: PAIN Last Admin: 09/15/16 12:06 Dose: 10 mg Ondansetron HCl (Zofran Injection) 4 mg IVPB Q6H PRN PRN Reason: NAUSEA Polyethylene Glycol (Miralax (For Daily Use) -) 17 gm PO DAILY PRN PRN Reason: CONSTIPATION Last Admin: 09/10/16 09:30 Dose: 17 gm Laboratory Results - last 24 hr 09/09/16 10:00 HCV Quantitation HCV RNA (PCR) IUs/ml Y HCV Liver Fibrosis Test Y Assessment/Plan (1) Complicated UTI (urinary tract infection) Assessment/Plan: Resolved and is off ABX abd has no fever Code(s): N39.0 - URINARY TRACT INFECTION, SITE NOT SPECIFIED (2) Paraplegia Assessment/Plan: -chronic Code(s): G82.20 - PARAPLEGIA, UNSPECIFIED (3) Chronic pain Assessment/Plan: -continue home dose of morphine and valium for pain and spasm Code(s): G89.29 - OTHER CHRONIC PAIN (4) Diarrhea -C.Diff negative and is better with being off the Zosyn Dispo -wants to go home on Friday 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
[2016-09-15] MEDS ORDERED: diazePAM 5 MG TABLET PO PRN (20:44)
[2016-09-16] MEDS: morphine SULFATE 10 MG/5 ML UNIT-DOSE CUP PO PRN ×4 (02:10→15:28)
[2016-09-16] MEDS: DOCUSATE SODIUM 100 MG CAPSULE (FP) PO SCH ×2 (06:19→14:03)
[2016-09-16] MEDS: LACTOBACILLUS ACIDOPHILUS 1 EACH TAB (FP) PO SCH (10:37)
[2016-09-16] MEDS: ENOXAPARIN NA (PORCINE) 40 MG/0.4 ML DISP.SYRIN SQ SCH (10:38)
[2016-09-16 14:22] VITALS: TEMP 97.9
[2016-09-16 14:31] VITALS: BP 81/39; PULSE 79
--- NOTE | 2016-09-16 14:54 | DS ---
Physical Examination Vital Signs: Vital Signs Temperature 97.9 F 09/16/16 14:21 Pulse Rate 79 09/16/16 14:30 Respiratory Rate 20 09/16/16 09:54 Blood Pressure 81/39 09/16/16 14:30 O2 Sat by Pulse Oximetry (%) 98 09/15/16 21:00 Labs: CBC, BMP 09/14/16 08:00 09/14/16 08:00 Discharge Summary Reason For Visit: UTI Current Active Problems Chronic pain (Acute) Paraplegia (Acute) UTI (urinary tract infection) (Acute) Condition: Good - Instructions Diet, Activity, Other Instructions: resume previous diet and activity Referrals: Juan Manuel Kang MD [Staff Physician] - Disposition: VNS/HOME HEALTH CARE - Home Medications Comprehensive Discharge Medication List: Ambulatory Orders Diazepam [Valium -] 10 mg PO TID PRN 07/28/15 Morphine 10 mg/5 ml Liquid [Morphine 10 mg/5 mL Liquid -] 4 mg PO Q4H PRN
--- NOTE | 2016-09-16 16:03 | PN ---
Progress Note, Physician History of Present Illness: doing well no complaints says his bladder feels much better - Current Medication List Current Medications: Active Medications Acetaminophen (Tylenol -) 650 mg PO Q4H PRN PRN Reason: FEVER OR PAIN Albuterol/Ipratropium (Duoneb -) 1 amp NEB Q6H PRN PRN Reason: SHORTNESS OF BREATH Diazepam (Valium -) 10 mg PO TID PRN PRN Reason: muscle spasms Last Admin: 09/16/16 10:37 Dose: 10 mg Docusate Sodium (Colace -) 100 mg PO TID [facility] Last Admin: 09/16/16 14:03 Dose: Not Given Enoxaparin Sodium (Lovenox -) 40 mg SQ DAILY [facility] Last Admin: 09/16/16 10:38 Dose: Not Given Lactobacillus Acidophilus (Bacid -) 1 tab PO DAILY [facility] [place] Last Admin: 09/16/16 10:37 Dose: 1 tab Magnesium Hydroxide (Milk Of Magnesia -) 30 ml PO DAILY PRN PRN Reason: CONSTIPATION Last Admin: 09/10/16 09:30 Dose: 30 ml Morphine Sulfate (Morphine 10 Mg/5 Ml Liquid) 10 mg PO Q4H PRN PRN Reason: PAIN Last Admin: 09/16/16 15:28 Dose: 10 mg Ondansetron HCl (Zofran Injection) 4 mg IVPB Q6H PRN PRN Reason: NAUSEA Polyethylene Glycol (Miralax (For Daily Use) -) 17 gm PO DAILY PRN PRN Reason: CONSTIPATION Last Admin: 09/10/16 09:30 Dose: 17 gm - Objective Vital Signs: Vital Signs Temperature 97.9 F 09/16/16 14:21 Pulse Rate 79 09/16/16 14:30 Respiratory Rate 20 09/16/16 09:54 Blood Pressure 81/39 09/16/16 14:30 O2 Sat by Pulse Oximetry (%) 98 09/15/16 21:00 Constitutional: Yes: No Distress, Calm Cardiovascular: Yes: Regular Rate and Rhythm Respiratory: Yes: Regular, CTA Bilaterally Gastrointestinal: Yes: Normal Bowel Sounds, Soft Extremities: Yes: Other Neurological: Yes: Alert, Oriented Psychiatric: Yes: Alert Labs: CBC, BMP 09/14/16 08:00 09/14/16 08:00 Assessment/Plan Assessment/Plan (1) Complicated UTI (urinary tract infection) Code: N39.0 paraplegia deformities recurrent uti plan stable off of abx rest as per the team
== END 2016-09-16 18:00 | disposition home health service (06) | DRG 690 ==
LOC: JER 03:50 → JERBED 04:36 → J6S 14:34
PROVIDERS: ADMIT Internal Medicine; ATTEND Internal Medicine
DX: N39.0 Urinary tract infection, site not specified (principal); G82.20 Paraplegia, unspecified; E87.2 Acidosis; J98.11 Atelectasis; G89.29 Other chronic pain; R19.7 Diarrhea, unspecified; K59.00 Constipation, unspecified
CPT/HCPCS: 36415; 71010-TC; 74176-TC; 80048; 80053; 81003; 81015; 82803; 83605; 83735; 84100; 85025; 85730; 86803; 87040; 87086; 87324; 87449; 87522; 93005; 93010; 96361; 96365; 96375; 99281-25; 99283-25; J1644; Q9967

== ENCOUNTER 2016-09-18 12:12 | Emergency (ER) | payer OTHER, BC ==
[2016-09-18 12:48] VITALS: BMI 18.0
--- NOTE | 2016-09-18 14:16 | PDOC ---
History of Present Illness - General History Source: Patient Exam Limitations: No Limitations - History of Present Illness Initial Comments: 09/18/16 14:14 The patient is a 61-year-old man, accompanied by , with a significant past medical history of paraplegia (below T2) and chronic recurrent urinary tract infections (recently admitted on 09/05 for UTI), who presents to the emergency department via EMS for further evaluation of suprapubic discomfort since yesterday. He states that he typically experineces suprpubic abdominal discomfort prior to urination, which immedialy resolves after he urinates. He states that he typically wears a condom catheter. He states that his urine has been otherwise clear, non-foul smelling, non cloudy without sediments. He also reports associated symptoms of chills. No fever, chest pain, cough, shortness of breath, headache, nausea, vomiting, diarrhea, dysuria, hematuria, urinary frequency/urgency, flank pain, testicular pain or penile discharge. He was recently admitted for UTI on 09/05 for which he was treated with antibiotics. UC were always contaminated and were noted to not grow any bacteria. Patient was discharge on 09/09/2016 off antibiotics. Allergies: None Known Past Surgical History: Right wrist fracture s/p fusion. Splenectomy. Social History: Former smoker (Quit 1995). Social ETOH use. No recreational drug use. Primary Care Physician: Dr. Daniel Kang [phone] <Debora Luna - Last Filed: 09/18/16 15:20> <Janusz Hylton - Last Filed: 09/18/16 15:53> - General Chief Complaint: Pain Stated Complaint: ABD PAIN Time Seen by Provider: 09/18/16 12:52 Past History <Debora Luna - Last Filed: 09/18/16 15:20> - Past Medical History Anemia: No Asthma: No Cancer: No Cardiac Disorders: No CVA: No COPD: Yes CHF: No Dementia: No Diabetes: No GI Disorders: No Disorders: Yes (Recurrent UTI) HTN: (Hypotension) Hypercholesterolemia: No Liver Disease: No Seizures: No Thyroid Disease: No - Surgical History Abdominal Surgery: No Appendectomy: No Cardiac Surgery: No Cholecystectomy: No Lung Surgery: No Neurologic Surgery: No Orthopedic Surgery: Yes (fracture right wrist s/p fusion) - Immunization History Td Vaccination: No Immunization Up to Date: No - Psycho/Social/Smoking Cessation Hx Anxiety: No Suicidal Ideation: No Smoking Status: No Smoking History: Former smoker Years of Tobacco Use: 0 Have you smoked in the past 12 months: No Number of Cigarettes Smoked Daily: 0 If you are a former smoker, when did you quit?: 1986 Cigars Per Day: 0 Information on smoking cessation initiated: No Hx Alcohol Use: No Drug/Substance Use Hx: No Substance Use Type: Alcohol Hx Substance Use Treatment: No <Janusz Hylton - Last Filed: 09/18/16 15:53> - Past Medical History Allergies/Adverse Reactions: Allergies Allergy/AdvReac Type Severity Reaction Status Date / Time No Known Allergies Allergy Verified 09/18/16 14:37 Home Medications: Ambulatory Orders Diazepam [Valium] 10 mg PO TID PRN #30 tablet MDD 30mg 09/16/16 Morphine 10 mg/5 ml Liquid [Morphine 10 mg/5 mL Liquid -] 4 mg PO Q4H PRN #30 ml MDD 36mg 09/16/16 Review of Systems - Review of Systems Constitutional: Yes: Chills. No: Fever Respiratory: No: Cough, Shortness of Breath Cardiac (ROS): No: Chest Pain ABD/GI: No: Diarrhea, Nausea, Vomiting : Yes: Dysuria Musculoskeletal: No: Back Pain <Janusz Hylton - Last Filed: 09/18/16 15:53> *Physical Exam - Vital Signs Last Vital Signs Temp Pulse Resp BP Pulse Ox 97.9 F 58 L 16 138/57 96 09/18/16 12:43 09/18/16 14:05 09/18/16 14:05 09/18/16 14:05 09/18/16 14:05 - Physical Exam Comments: 09/18/16 14:14 GENERAL: The patient is awake, alert, and fully oriented, in no acute distress. HEAD: Normal with no signs of trauma. EYES: Pupils equal, round and reactive to light, extraocular movements intact, sclera anicteric, conjunctiva clear with no pallor. ENT: Ears normal, nares patent, oropharynx clear without exudates. Moist mucous membranes. NECK: Normal range of motion, supple without lymphadenopathy, JVD, or masses. LUNGS: Breath sounds equal, clear to auscultation bilaterally. No wheeze/ crackles. HEART: Regular rate and rhythm, normal S1 and S2 without murmur or rub. ABDOMEN: Soft/nontender/nondistended. BS wnl. No guarding or rebound. No palpable masses. No hepatosplenomegaly. : +Condom catheter in place. EXTREMITIES: +Baseline paraplegia. No edema. No clubbing or cyanosis. No cords , erythema, or tenderness. NEUROLOGICAL: Cranial nerves II through XII grossly intact. Normal speech. PSYCH: Normal mood, normal affect. SKIN: Warm, Dry, normal turgor, no rashes or lesions noted. <Debora Luna - Last Filed: 09/18/16 15:20> - Vital Signs Last Vital Signs Temp Pulse Resp BP Pulse Ox 97.9 F 58 L 16 138/57 96 09/18/16 12:43 09/18/16 14:05 09/18/16 14:05 09/18/16 14:05 09/18/16 14:05 <Janusz Hylton - Last Filed: 09/18/16 15:53> ED Treatment Course - ADDITIONAL ORDERS Additional order review: Laboratory Results 09/18/16 13:54 Urine Color Lt. yellow Urine Appearance Clear Urine pH 7.0 Ur Specific [place] 1.010 Urine Protein Negative Urine Glucose (UA) Negative Urine Ketones Negative Urine Blood Negative Urine Nitrite Positive Urine Bilirubin Negative Urine Urobilinogen 0.2 e.u/dl Ur Leukocyte Esterase 3+ H Urine RBC 3 Urine WBC 79 Ur Epithelial Cells Few Urine Bacteria Rare Urine Mucus Rare Urine Yeast Many <Debora Luna - Last Filed: 09/18/16 15:20> Medical Decision Making - Medical Decision Making 09/18/16 15:[address] Eran Singer. <Debora Luan - Last Filed: 09/18/16 15:20> - Medical Decision Making 09/18/16 14:14 A portion of this note was documented by scribe services under my direction. I have reviewed the details of the note, within reason, and agree with the documentation with the following case summary and management plan written by me. 61-year-old male with history of lower extremity plegia, incontinence requiring condom catheter, frequent UTIs recently admitted here for presumed urinary tract infection from 09/05-09/16 without cultures revealing any specific antibiotic, symptoms apparently resolved with Zosyn and he was discharged off antibiotics 2 days ago. Now presents with complaint of suprapubic discomfort prior to urinating earlier today, now resolved. No fevers or chills. Afebrile. Exam as noted 61y/o M acute on chronic UTI 2/2 paraplegia p/w bladder discomfort, resolved. Well appearing, no SIRS/sepsis. check ua/urine cx dispo accordingly 09/18/16 15:48 O2 sat 96% on room air. Urinalysis with baseline leuk esterase and elevated white blood cells. This was reviewed with Dr. iSnger, who just discharged the patient, who states the plan is to not proceed with antibiotics as the patient is likely colonized chronically. Agrees no further interventions are necessary given the resolution of symptoms, patient remains well appearing and afebrile, agrees with discharge and understands return criteria. <Janusz Hylton - Last Filed: 09/18/16 15:53> *DC/Admit/Observation/Transfer - Attestations Scribe Attestion: 09/18/16 14:14 Documentation prepared by Debora Luna, acting as medical housekeeper for Janusz Hylton MD. <Debora Luna - Last Filed: 09/18/16 15:20> <Janusz Hylton - Last Filed: 09/18/16 15:53> Diagnosis at time of Disposition: Paraplegia - Discharge Dispostion Disposition: HOME Condition at time of disposition: Stable - Referrals Referrals: Juan Manuel Kang MD [Primary Care Provider] - - Patient Instructions Printed Discharge Instructions: DI for Paraplegia Additional Instructions: Activity as tolerated. Stay hydrated. A urine test today shows no evidence of an acute infection, but it does show chronic changes. We spoke to your primary physicians, and the decision has been to not treat with antibiotics at this time. A urine culture is pending, if antibiotics are necessary you will be called. Continue your medications as previously prescribed by your physician. Consider bladder anti-spasmodics after speaking to your primary doctor. You should follow up with Dr. Kang as soon as possible regarding today's emergency department visit. Return to the emergency department for any new or concerning symptoms, particularly persistent pain or difficulty urinating, fevers or chills, abdominal pain or fevers.
[2016-09-18 14:18] LABS: URINE APPEARANCE CLEAR; URINE BILIRUBIN NEGATIVE (NEGATIVE); URINE BLOOD NEGATIVE (NEGATIVE); URINE COLOR LT. YELLOW; URINE GLUCOSE (UA) NEGATIVE (NEGATIVE); URINE KETONE NEGATIVE (NEGATIVE); URINE PROTEIN NEGATIVE (NEGATIVE); URINE UROBILINOGEN 0.2 E.U/dl E.U./dl (0.2-1.0)
[2016-09-18 14:23] LABS: URINE LEUK ESTERASE 3+ (NEGATIVE); URINE NITRITE POSITIVE (NEGATIVE)
[2016-09-18 14:33] LABS: URINE BACTERIA RARE /hpf (NONE SEEN); URINE MUCUS RARE; URINE RBC 3 /hpf (0-3); URINE WBC 79 /hpf (3-5); YEAST MANY
[2016-09-18 16:09] VITALS: BP 132/60; PULSE 60; TEMP 97.2
== END 2016-09-18 18:26 | disposition home or self-care (01) ==
LOC: JER 12:12
DX: G82.20 Paraplegia, unspecified (principal); Z87.440 Personal history of urinary (tract) infections; J44.9 Chronic obstructive pulmonary disease, unspecified; E03.9 Hypothyroidism, unspecified; Z87.891 Personal history of nicotine dependence
CPT/HCPCS: 81003; 81015; 87086; 99282-25

== ENCOUNTER 2016-11-23 10:59 | Inpatient (IN) | payer OTHER, BC ==
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
[2016-11-23 12:18] LABS: RDW 16.4 % (11.9-15.9); WHITE BLOOD COUNT 10.5 K/mm3 (4.0-10.0)
[2016-11-23 12:23] LABS: MCH 28.4 pg (25.7-33.7); MEAN CELL VOLUME 88.7 fl (80-96); MEAN PLT VOLUME 9.1 fl (7.5-11.1); PLATELET COUNT 416 K/MM3 (134-434)
[2016-11-23 12:46] LABS: ALBUMIN 2.9 g/dl (3.4-5.0); ANION GAP 6 (8-16); BILIRUBIN,TOTAL 1.4 mg/dL (0.2-1.0); CALCIUM 8.4 mg/dL (8.5-10.1); CO2 30 mmol/L (21-32); CREATININE 0.5 mg/dL (0.7-1.3); GLUCOSE,RANDOM 89 mg/dL (74-106); SGOT/AST 13 U/L (15-37); SGPT/ALT 11 U/L (12-78); TOT PROT 6.7 g/dl (6.4-8.2)
[2016-11-23 12:47] LABS: ALK PHOS 356 U/L (45-117)
[2016-11-23] MEDS ORDERED: SODIUM CHLORIDE 1,000 ML IV STA (13:06)
[2016-11-23] MEDS ORDERED: morphine CARPU-JECT 2 MG/1 ML DISP.SYRIN IVPUSH ONE ×2 (13:06→15:02)
[2016-11-23] MEDS ORDERED: POTASSIUM CHLORIDE TABS 20 MEQ TABLET.ER (FP) PO ONE ×2 (13:07→13:15)
[2016-11-23] MEDS ORDERED: morphine CARPU-JECT 2 MG/1 ML DISP.SYRIN ONE ×2 (13:08→15:11)
[2016-11-23 13:31] LABS: URINE BILIRUBIN NEGATIVE (NEGATIVE); URINE COLOR LT. YELLOW; URINE GLUCOSE (UA) NEGATIVE (NEGATIVE); URINE KETONE NEGATIVE (NEGATIVE); URINE NITRITE NEGATIVE (NEGATIVE); URINE PROTEIN NEGATIVE (NEGATIVE); URINE UROBILINOGEN 4.0 E.U/dl E.U./dl (0.2-1.0)
[2016-11-23 13:33] LABS: URINE APPEARANCE CLOUDY; URINE BLOOD 2+ (NEGATIVE); URINE LEUK ESTERASE 2+ (NEGATIVE)
[2016-11-23 13:55] LABS: URINE RBC 35 /hpf (0-3)
[2016-11-23 13:56] LABS: URINE BACTERIA MODERATE /hpf (NONE SEEN); URINE WBC 10 /hpf (3-5); YEAST MODERATE
[2016-11-23] MEDS ORDERED: SULFAMETHOXAZOLE/TRIMETHOPRIM 800MG/160MG D.S. TABLET PO ONE (14:00)
[2016-11-23] MEDS ORDERED: SULFAMETHOXAZOLE/TRIMETHOPRIM 800MG/160MG D.S. TABLET ONE (14:16)
[2016-11-23 15:04] LABS: PLATELET COMMENT2 NO CLOTTING DETECTED; PLATELET COMMENT3 FEW LARGE PLTS; PLATELET ESTIMATE ADEQUATE (NORMAL)
[2016-11-23] MEDS ORDERED: VANCOMYCIN 1,000 MG in DEXTROSE 5%-WATER - 250 ML IVPB ONE (15:41)
[2016-11-23] MEDS ORDERED: VANCOMYCIN 1 GRAM (PRE-DOCKED) 250 ML IVPB ONE (15:46)
[2016-11-23] MEDS ORDERED: PIPERACILLIN/TAZOB 3.375 GM/50 ML PRE-DOCKED IVPB ONE (17:30)
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
[2016-11-23 19:13] VITALS: BMI 16.4
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
[2016-11-24 08:57] LABS: BASOPHIL 1.1 % (0-2.0); EOSINOPHIL 4.4 % (0-4.5); MCH 29.3 pg (25.7-33.7); MCHC 32.4 g/dl (32.0-35.9); MEAN CELL VOLUME 90.5 fl (80-96); MEAN PLT VOLUME 10.3 fl (7.5-11.1); NEUTROPHILS 65.8 % (42.8-82.8); PLATELET COUNT 398 K/MM3 (134-434); RDW 16.5 % (11.9-15.9); WHITE BLOOD COUNT 10.3 K/mm3 (4.0-10.0)
[2016-11-24 09:32] LABS: ALBUMIN 2.6 g/dl (3.4-5.0); ANION GAP 10 (8-16); CO2 25 mmol/L (21-32); GLUCOSE,RANDOM 74 mg/dL (74-106)
[2016-11-24 09:36] LABS: ALK PHOS 299 U/L (45-117); BILIRUBIN,TOTAL 0.9 mg/dL (0.2-1.0); CREATININE 0.6 mg/dL (0.7-1.3); SGOT/AST 12 U/L (15-37); SGPT/ALT 9 U/L (12-78); TOT PROT 5.9 g/dl (6.4-8.2)
[2016-11-24] MEDS: diazePAM 5 MG TABLET PO PRN ×2 (12:59→23:40)
--- NOTE | 2016-11-24 14:18 | PN ---
Progress Note (short form) - Note Progress Note: ID Consult dictated Recurrent UTI Paraplegia S/P Splenectomy Pending urine c/s empiric zosyn
--- NOTE | 2016-11-24 14:59 | CONS ---
DATE OF CONSULTATION: 11/24/2016 The patient is a 61-year-old paraplegic male with history of recurrent urinary tract infections, now evaluated for a UTI. The patient was brought to the emergency room with complaints of lower abdominal pain. He is a long-term paraplegic. He has no sensation in the genital tract. He has a condom catheter. He did not experience any dysuria. The urine was noted by his threading machine operator to be concentrated. He was seen in the emergency room on November 13, 2016, and was prescribed Bactrim for a urinary tract infection. He now returns with the above symptoms. He denies any associated fever or chills. Patient has had multiple admissions; however, the last admission appears to have been in late August 2016/early September 2016. PAST MEDICAL HISTORY: Positive for paraplegia at the level T4, recurrent urinary tract infections, alcohol abuse, bilateral femur fractures. PAST SURGICAL HISTORY: Status post splenectomy and right wrist fracture. No known allergies. MEDICATIONS: Valium, morphine, Zosyn. 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 Nonsmoker, nondrinker. SYSTEMS REVIEW: Neurologic: Positive for paraplegia. Cardiac: Negative chest pain or palpitations. Respiratory: Negative cough or sputum production. Gastrointestinal: Negative vomiting or diarrhea. Genitourinary: As per HPI. LABORATORY DATA: White count 10.3, hematocrit 36.4, platelet count 398. BUN 9, creatinine 0.6. Urinalysis with 10 white cells. Urine culture growing a nonlactose public health aide. PHYSICAL EXAMINATION: General: He is awake, he is chronically ill-appearing. Vital Signs: Temperature 97.9, blood pressure 130/71, pulse 61 and regular, respirations 20/min. HEENT: Sclerae anicteric. Heart Sounds: S1, S2. Lungs: Clear. Abdomen: Soft. No suprapubic tenderness. Extremities: Negative for edema. No decubitus ulcers noted. IMPRESSION: 1. Recurrent urinary tract infection, nonlactose public health aide. 2. Paraplegia. 3. Status post splenectomy. Will obtain blood cultures pending identification of urine isolette. We will continue Zosyn 3.375 g IV piggyback every 8 hours. Patient's previous urine has been positive for achromobacter sensitive to Zosyn. Await culture results. Will follow. Thank you for the kind referral. CHICHI MOLINA M.D. [id number]
[2016-11-24] MEDS: morphine SULFATE 10 MG/5 ML UNIT-DOSE CUP PO PRN ×2 (15:06→23:38)
[2016-11-24] MEDS: PIPERACILLIN/TAZOB 3.375 GM 50 ML IVPB SCH ×2 (15:06→19:03)
[2016-11-25] MEDS: PIPERACILLIN/TAZOB 3.375 GM 50 ML IVPB SCH ×3 (02:28→17:58)
[2016-11-25] MEDS: diazePAM 5 MG TABLET PO PRN ×3 (06:01→22:27)
[2016-11-25] MEDS: morphine SULFATE 10 MG/5 ML UNIT-DOSE CUP PO PRN ×4 (06:01→19:50)
[2016-11-25] MEDS: PIPERACILLIN/TAZOB 3.375 GM/50 ML PRE-DOCKED IVPB SCH (07:46)
[2016-11-25] MEDS ORDERED: PT OWN MED DRAWER 7, Y5N ONE (10:24)
--- NOTE | 2016-11-25 10:36 | PN ---
Progress Note, Physician Chief Complaint: Mr Bianca says he is having some suprapubic pain but improved. No cp or sob. - Current Medication List Current Medications: Active Medications Diazepam (Valium -) 10 mg PO TID PRN Last Admin: 11/25/16 06:01 Dose: 10 mg Piperacillin Sod/Tazobactam Sod (Zosyn 3.375gm Ivpb (Pre-Docked)) 50 mls @ 100 mls/hr IVPB Q8H-IV ZAIRA PRN Reason: Protocol Last Admin: 11/25/16 10:34 Dose: 100 mls/hr Morphine Sulfate (Morphine 10 Mg/5 Ml Liquid) 4 mg PO Q4H PRN PRN Reason: PAIN Last Admin: 11/25/16 06:01 Dose: 4 mg - Objective Vital Signs: Vital Signs Temperature 98.3 F 11/25/16 06:00 Pulse Rate 52 L 11/25/16 06:00 Respiratory Rate 20 11/25/16 06:00 Blood Pressure 129/59 11/25/16 06:00 O2 Sat by Pulse Oximetry (%) 96 11/24/16 23:00 Constitutional: Yes: Well Nourished, No Distress, Calm Cardiovascular: Yes: Regular Rate and Rhythm. No: Gallop, Murmur, Rub Respiratory: Yes: Regular, CTA Bilaterally. No: Rales, Rhonchi, Wheezes Gastrointestinal: Yes: Normal Bowel Sounds, Soft. No: Distention, Tenderness Extremities: Yes: WNL Edema: No Assessment/Plan (1) Complicated UTI (urinary tract infection) Assessment/Plan: -ID following and appreciate assistance -continue zosyn Code(s): N39.0 - URINARY TRACT INFECTION, SITE NOT SPECIFIED (2) Chronic pain Assessment/Plan: -on prn morphine -continue home regimen Code(s): G89.29 - OTHER CHRONIC PAIN (3) Paraplegia Assessment/Plan: -on valium for muscle spasms Code(s): G82.20 - PARAPLEGIA, UNSPECIFIED
--- NOTE | 2016-11-25 13:52 | PN ---
Progress Note, Physician History of Present Illness: C/O constipation No c/o fever/ chills Urine c/s Pseudomonas (s) zosyn - Current Medication List Current Medications: Active Medications Diazepam (Valium -) 10 mg PO TID PRN Last Admin: 11/25/16 06:01 Dose: 10 mg Piperacillin Sod/Tazobactam Sod (Zosyn 3.375gm Ivpb (Pre-Docked)) 50 mls @ 100 mls/hr IVPB Q8H-IV ZAIRA PRN Reason: Protocol Last Admin: 11/25/16 10:34 Dose: 100 mls/hr Morphine Sulfate (Morphine 10 Mg/5 Ml Liquid) 4 mg PO Q4H PRN PRN Reason: PAIN Last Admin: 11/25/16 10:48 Dose: 4 mg - Objective Vital Signs: Vital Signs Temperature 98.3 F 11/25/16 06:00 Pulse Rate 52 L 11/25/16 06:00 Respiratory Rate 20 11/25/16 06:00 Blood Pressure 129/59 11/25/16 06:00 O2 Sat by Pulse Oximetry (%) 96 11/24/16 23:00 Constitutional: Yes: No Distress, Cachectic Eyes: Yes: Conjunctiva Clear Cardiovascular: Yes: Regular Rate and Rhythm, S1, S2 Respiratory: Yes: CTA Bilaterally Gastrointestinal: Yes: Normal Bowel Sounds, Soft. No: Tenderness Genitourinary: Yes: Sharp Present (urine concentrated) Assessment/Plan Recurrent UTI Pseudomonas sp Paraplegia S/P splenectomy Continue zosyn
[2016-11-25] MEDS ORDERED: MINERAL OIL ENEMA 133 ML ENEMA PR PRN (19:22)
[2016-11-25] MEDS: POLYETHYLENE GLYCOL 3350 119 GM BTL PO SCH (21:47)
[2016-11-25] MEDS: DOCUSATE SODIUM 100 MG CAPSULE (FP) PO SCH (21:47)
[2016-11-26] MEDS: PIPERACILLIN/TAZOB 3.375 GM 50 ML IVPB SCH ×3 (02:13→18:08)
[2016-11-26] MEDS: morphine SULFATE 10 MG/5 ML UNIT-DOSE CUP PO PRN ×4 (07:35→22:41)
[2016-11-26] MEDS: POLYETHYLENE GLYCOL 3350 119 GM BTL PO SCH ×2 (09:51→22:45)
[2016-11-26] MEDS: DOCUSATE SODIUM 100 MG CAPSULE (FP) PO SCH ×2 (09:51→22:38)
[2016-11-26 09:58] LABS: CALCIUM 8.6 mg/dL (8.5-10.1); CREATININE 0.7 mg/dL (0.7-1.3); MAGNESIUM 1.7 mg/dL (1.8-2.4); PHOSPHOROUS 2.8 mg/dL (2.5-4.9)
[2016-11-26 10:21] LABS: BASOPHIL 1.1 % (0-2.0); EOSINOPHIL 5.5 % (0-4.5); MCH 29.4 pg (25.7-33.7); MCHC 32.8 g/dl (32.0-35.9); MEAN CELL VOLUME 89.6 fl (80-96); MEAN PLT VOLUME 9.7 fl (7.5-11.1); NEUTROPHILS 60.7 % (42.8-82.8); PLATELET COUNT 433 K/MM3 (134-434); RDW 16.5 % (11.9-15.9); WHITE BLOOD COUNT 8.2 K/mm3 (4.0-10.0)
--- NOTE | 2016-11-26 14:08 | PN ---
Progress Note, Physician History of Present Illness: awake, alert No complaints Afebrile WBC improved Urine c/s not grossly purulent - Current Medication List Current Medications: Active Medications Diazepam (Valium -) 10 mg PO TID PRN Last Admin: 11/25/16 22:27 Dose: 10 mg Docusate Sodium (Colace -) 100 mg PO BID ZAIRA Last Admin: 11/26/16 09:51 Dose: 100 mg Piperacillin Sod/Tazobactam Sod (Zosyn 3.375gm Ivpb (Pre-Docked)) 50 mls @ 100 mls/hr IVPB Q8H-IV ZAIRA PRN Reason: Protocol Last Admin: 11/26/16 09:51 Dose: 100 mls/hr Mineral Oil (Fleet Mineral Oil Rectal Enema -) 133 ml [place] DAILY PRN PRN Reason: CONSTIPATION Morphine Sulfate (Morphine 10 Mg/5 Ml Liquid) 4 mg PO Q4H PRN PRN Reason: PAIN Last Admin: 11/26/16 12:15 Dose: 4 mg Polyethylene Glycol (Miralax (For Daily Use) -) 17 gm PO BID [facility] Last Admin: 11/26/16 09:51 Dose: 17 grams - Objective Vital Signs: Vital Signs Temperature 98.4 F 11/26/16 05:58 Pulse Rate 53 L 11/26/16 05:58 Respiratory Rate 18 11/26/16 05:58 Blood Pressure 120/47 11/26/16 05:58 O2 Sat by Pulse Oximetry (%) 94 L 11/25/16 21:00 Constitutional: Yes: No Distress, Cachectic Eyes: Yes: Conjunctiva Clear Cardiovascular: Yes: Regular Rate and Rhythm, S1, S2 Respiratory: Yes: CTA Bilaterally Gastrointestinal: Yes: Normal Bowel Sounds, Soft. No: Tenderness Edema: No Labs: CBC, BMP 11/26/16 07:30 11/26/16 07:30 Assessment/Plan Recurrent UTI Pseudomonas sp Paraplegia S/P splenectomy Continue zosyn additional 48h,then stop
--- NOTE | 2016-11-26 14:59 | PN ---
Progress Note, Physician Chief Complaint: Mr Valenzuela says he is feeling well today. No cp, sob, n/v, abdominal pain. - Current Medication List Current Medications: Active Medications Diazepam (Valium -) 10 mg PO TID PRN Last Admin: 11/25/16 22:27 Dose: 10 mg Docusate Sodium (Colace -) 100 mg PO BID [facility]A Last Admin: 11/26/16 09:51 Dose: 100 mg Piperacillin Sod/Tazobactam Sod (Zosyn 3.375gm Ivpb (Pre-Docked)) 50 mls @ 100 mls/hr IVPB Q8H-IV ZAIRA PRN Reason: Protocol Last Admin: 11/26/16 09:51 Dose: 100 mls/hr Mineral Oil (Fleet Mineral Oil Rectal Enema -) 133 ml [place] DAILY PRN PRN Reason: CONSTIPATION Morphine Sulfate (Morphine 10 Mg/5 Ml Liquid) 4 mg PO Q4H PRN PRN Reason: PAIN Last Admin: 11/26/16 12:15 Dose: 4 mg Polyethylene Glycol (Miralax (For Daily Use) -) 17 gm PO BID [facility] Last Admin: 11/26/16 09:51 Dose: 17 grams - Objective Vital Signs: Vital Signs Temperature 98.4 F 11/26/16 14:56 Pulse Rate 79 11/26/16 14:56 Respiratory Rate 16 11/26/16 14:56 Blood Pressure 108/55 11/26/16 14:56 O2 Sat by Pulse Oximetry (%) 94 L 11/25/16 21:00 Constitutional: Yes: Well Nourished, No Distress, Calm Cardiovascular: Yes: Regular Rate and Rhythm. No: Gallop, Murmur, Rub Respiratory: Yes: Regular, CTA Bilaterally. No: Rales, Rhonchi, Wheezes Gastrointestinal: Yes: Normal Bowel Sounds, Soft. No: Distention, Tenderness Extremities: Yes: WNL Edema: No Labs: CBC, BMP 11/26/16 07:30 11/26/16 07:30 Assessment/Plan (1) Complicated UTI (urinary tract infection) Assessment/Plan: -ID following and appreciate assistance -continue zosyn, growing pseudomonas -ID says zosyn for 48 hours Code(s): N39.0 - URINARY TRACT INFECTION, SITE NOT SPECIFIED (2) Chronic pain Assessment/Plan: -on prn morphine -continue home regimen Code(s): G89.29 - OTHER CHRONIC PAIN (3) Paraplegia Assessment/Plan: -on valium for muscle spasms Code(s): G82.20 - PARAPLEGIA, UNSPECIFIED
[2016-11-27] MEDS: PIPERACILLIN/TAZOB 3.375 GM 50 ML IVPB SCH ×3 (02:32→18:10)
[2016-11-27 07:51] LABS: BASOPHIL 1.2 % (0-2.0); MCH 29.2 pg (25.7-33.7); MCHC 32.4 g/dl (32.0-35.9); MEAN PLT VOLUME 9.4 fl (7.5-11.1); NEUTROPHILS 55.8 % (42.8-82.8); PLATELET COUNT 423 K/MM3 (134-434); RDW 16.5 % (11.9-15.9); WHITE BLOOD COUNT 8.4 K/mm3 (4.0-10.0)
[2016-11-27 09:30] LABS: CALCIUM 8.4 mg/dL (8.5-10.1); CREATININE 0.6 mg/dL (0.7-1.3)
[2016-11-27] MEDS: diazePAM 5 MG TABLET PO PRN ×2 (09:33→21:32)
[2016-11-27] MEDS: morphine SULFATE 10 MG/5 ML UNIT-DOSE CUP PO PRN ×3 (09:34→21:33)
--- NOTE | 2016-11-27 10:41 | PN ---
Progress Note, Physician History of Present Illness: C/O constipation No fever/ chills WBC WNL - Current Medication List Current Medications: Active Medications Diazepam (Valium -) 10 mg PO TID PRN Last Admin: 11/27/16 09:33 Dose: 10 mg Docusate Sodium (Colace -) 100 mg PO BID [facility] Last Admin: 11/26/16 22:38 Dose: 100 mg Piperacillin Sod/Tazobactam Sod (Zosyn 3.375gm Ivpb (Pre-Docked)) 50 mls @ 100 mls/hr IVPB Q8H-IV ZAIRA PRN Reason: Protocol Last Admin: 11/27/16 02:32 Dose: 100 mls/hr Mineral Oil (Fleet Mineral Oil Rectal Enema -) 133 ml [place] DAILY PRN PRN Reason: CONSTIPATION Morphine Sulfate (Morphine 10 Mg/5 Ml Liquid) 4 mg PO Q4H PRN PRN Reason: PAIN Last Admin: 11/27/16 09:34 Dose: 4 mg Polyethylene Glycol (Miralax (For Daily Use) -) 17 gm PO BID [facility] Last Admin: 11/26/16 22:45 Dose: Not Given - Objective Vital Signs: Vital Signs Temperature 98.6 F 11/27/16 10:21 Pulse Rate 71 11/27/16 10:21 Respiratory Rate 18 11/27/16 10:21 Blood Pressure 108/44 11/27/16 10:21 O2 Sat by Pulse Oximetry (%) 95 11/26/16 21:00 Constitutional: Yes: Cachectic Cardiovascular: Yes: Regular Rate and Rhythm, S1, S2 Respiratory: Yes: CTA Bilaterally Gastrointestinal: Yes: Normal Bowel Sounds, Soft. No: Tenderness Labs: CBC, BMP 11/27/16 06:45 11/27/16 06:45 Assessment/Plan Recurrent UTI Pseudomonas sp Paraplegia S/P splenectomy Continue zosyn additional 24h D/C antibiotics 11/28/16, observe off Please re- consult prn
[2016-11-27] MEDS: POLYETHYLENE GLYCOL 3350 119 GM BTL PO SCH ×2 (11:12→21:32)
[2016-11-27] MEDS: DOCUSATE SODIUM 100 MG CAPSULE (FP) PO SCH ×2 (11:13→21:32)
--- NOTE | 2016-11-27 11:56 | PN ---
Progress Note, Physician Chief Complaint: Mr Valenzuela is without complaint. No cp, sob, n/v, abdominal pain. - Current Medication List Current Medications: Active Medications Diazepam (Valium -) 10 mg PO TID PRN Last Admin: 11/27/16 09:33 Dose: 10 mg Docusate Sodium (Colace -) 100 mg PO BID [facility] Last Admin: 11/27/16 11:13 Dose: 100 mg Piperacillin Sod/Tazobactam Sod (Zosyn 3.375gm Ivpb (Pre-Docked)) 50 mls @ 100 mls/hr IVPB Q8H-IV ZAIRA PRN Reason: Protocol Last Admin: 11/27/16 11:10 Dose: 100 mls/hr Mineral Oil (Fleet Mineral Oil Rectal Enema -) 133 ml [place] DAILY PRN PRN Reason: CONSTIPATION Morphine Sulfate (Morphine 10 Mg/5 Ml Liquid) 4 mg PO Q4H PRN PRN Reason: PAIN Last Admin: 11/27/16 09:34 Dose: 4 mg Polyethylene Glycol (Miralax (For Daily Use) -) 17 gm PO BID [facility] Last Admin: 11/27/16 11:12 Dose: 17 grams - Objective Vital Signs: Vital Signs Temperature 98.6 F 11/27/16 10:21 Pulse Rate 71 11/27/16 10:21 Respiratory Rate 18 11/27/16 10:21 Blood Pressure 108/44 11/27/16 10:21 O2 Sat by Pulse Oximetry (%) 95 11/26/16 21:00 Constitutional: Yes: Well Nourished, No Distress, Calm Cardiovascular: Yes: Regular Rate and Rhythm. No: Gallop, Murmur, Rub Respiratory: Yes: Regular, CTA Bilaterally. No: Rales, Rhonchi, Wheezes Gastrointestinal: Yes: Normal Bowel Sounds, Soft. No: Distention, Tenderness Extremities: Yes: WNL Edema: No Labs: CBC, BMP 11/27/16 06:45 11/27/16 06:45 Assessment/Plan (1) Complicated UTI (urinary tract infection) Assessment/Plan: -ID following and appreciate assistance -continue zosyn, growing pseudomonas -ID says zosyn for 24 more hours -stop zosyn tomorrow, observe for 24 hours off of antibiotics -possible discharge Friday Code(s): N39.0 - URINARY TRACT INFECTION, SITE NOT SPECIFIED (2) Chronic pain Assessment/Plan: -on prn morphine -continue home regimen Code(s): G89.29 - OTHER CHRONIC PAIN (3) Paraplegia Assessment/Plan: -on valium for muscle spasms Code(s): G82.20 - PARAPLEGIA, UNSPECIFIED
[2016-11-28] MEDS: PIPERACILLIN/TAZOB 3.375 GM 50 ML IVPB SCH ×3 (02:50→18:55)
[2016-11-28 08:58] LABS: EOSINOPHIL 4.6 % (0-4.5); MCH 29.1 pg (25.7-33.7); MCHC 32.5 g/dl (32.0-35.9); MEAN CELL VOLUME 89.5 fl (80-96); MEAN PLT VOLUME 9.6 fl (7.5-11.1); NEUTROPHILS 64.2 % (42.8-82.8); PLATELET COUNT 428 K/MM3 (134-434); WHITE BLOOD COUNT 9.8 K/mm3 (4.0-10.0)
[2016-11-28 09:01] LABS: CALCIUM 8.6 mg/dL (8.5-10.1); CREATININE 0.6 mg/dL (0.7-1.3); MAGNESIUM 1.9 mg/dL (1.8-2.4); PHOSPHOROUS 2.9 mg/dL (2.5-4.9)
[2016-11-28] MEDS: morphine SULFATE 10 MG/5 ML UNIT-DOSE CUP PO PRN (11:01)
[2016-11-28] MEDS: POLYETHYLENE GLYCOL 3350 119 GM BTL PO SCH ×2 (11:01→22:25)
[2016-11-28] MEDS: DOCUSATE SODIUM 100 MG CAPSULE (FP) PO SCH ×2 (11:01→22:22)
--- NOTE | 2016-11-28 21:16 | PN ---
Physical Exam: SUBJECTIVE: Patient seen and examined at bedside. Pt has no complaints at this time and feels back to baseline. Denies CP, SOB, N/V/F/C, and says his urine is back to normal color. OBJECTIVE: Vital Signs Temperature 99 F 11/28/16 17:02 Pulse Rate 71 11/28/16 17:02 Respiratory Rate 20 11/28/16 17:02 Blood Pressure 124/67 11/28/16 17:02 O2 Sat by Pulse Oximetry (%) 95 11/28/16 09:00 GENERAL: The patient is awake, alert, and fully oriented, in no acute distress. HEAD: Normal with no signs of trauma. EYES: extraocular movements intact, sclera anicteric, conjunctiva clear. No ptosis. ENT: Ears normal, nares patent, oropharynx clear without exudates, moist mucous membranes. NECK: Trachea midline, full range of motion LUNGS: Breath sounds equal, clear to auscultation bilaterally, no wheezes, no crackles, no accessory muscle use. HEART: Regular rate and rhythm, S1, S2 without murmur, rub or gallop. ABDOMEN: Soft, nontender, nondistended, normoactive bowel sounds, no guarding, no rebound, no hepatosplenomegaly, no masses. EXTREMITIES: paraplegia NEUROLOGICAL: paraplegia. Normal speech. PSYCH: Normal mood, normal affect. SKIN: Warm, dry, normal turgor, no rashes or lesions noted Laboratory Results - last 24 hr 11/28/16 11/28/16 06:30 06:30 WBC 9.8 RBC 4.12 Hgb 12.0 Hct 36.9 MCV 89.5 MCHC 32.5 RDW 17.0 H Plt Count 428 MPV 9.6 Neutrophils % 64.2 Lymphocytes % 18.8 D Monocytes % 11.4 H Eosinophils % 4.6 H Basophils % 1.0 Sodium 137 Potassium 3.9 Chloride 100 Carbon Dioxide 28 Anion Gap 9 BUN 10 D Creatinine 0.6 L Random Glucose 79 Calcium 8.6 Phosphorus 2.9 Magnesium 1.9 Active Medications Generic Name Dose Route Start Last Admin Trade Name Freq PRN Reason Stop Dose Admin Diazepam 10 mg 11/23/16 16:59 11/27/16 21:32 Valium - PO 10 mg TID PRN Administration Docusate Sodium 100 mg 11/25/16 22:00 11/28/16 11:01 Colace - PO 100 mg BID ZAIRA Administration Mineral Oil 133 ml 11/25/16 19:22 Fleet Mineral Oil Rectal Enema - [place] DAILY PRN CONSTIPATION Morphine Sulfate 4 mg 11/23/16 16:59 11/28/16 11:01 Morphine 10 Mg/5 Ml Liquid PO 4 mg Q4H PRN Administration PAIN Polyethylene Glycol 17 gm 11/25/16 22:00 11/28/16 11:01 Miralax (For Daily Use) - PO 17 grams BID ZAIRA Administration ASSESSMENT/PLAN: 61 y/o M w/ PMH of paraplegia and frequent UTIs presented to ER with dark colored urine. Admitted for UTI. -complicated UTI -UCx: pseudomonas -off zosyn today as per ID, no fevers so far, pt feels clinically well -chronic pain -c/w morphine prn -paraplegia -c/w valium prn for muscle spasms -constipation -miralax bid, colace 100 mg po bid, fleet mineral oil enema qd prn for constipation. -dispo: -can most likely be discharged soon. Problem List - Problems (1) Complicated UTI (urinary tract infection) Code(s): N39.0 - URINARY TRACT INFECTION, SITE NOT SPECIFIED (2) Chronic pain Code(s): G89.29 - OTHER CHRONIC PAIN (3) Paraplegia Code(s): G82.20 - PARAPLEGIA, UNSPECIFIED (4) Constipation Code(s): K59.00 - CONSTIPATION, UNSPECIFIED Visit type - Emergency Visit Emergency Visit: Yes ED Registration Date: 11/24/16 Care time: The patient presented to the Emergency Department on the above date and was hospitalized for further evaluation of their emergent condition. - New Patient This patient is new to me today: Yes Date on this admission: 11/28/16 - Critical Care Critical Care patient: No
--- NOTE | 2016-11-29 08:43 | DS ---
Physical Examination Vital Signs: Vital Signs Temperature 98.9 F 11/28/16 22:00 Pulse Rate 75 11/28/16 22:00 Respiratory Rate 18 11/28/16 22:00 Blood Pressure 125/66 11/28/16 22:00 O2 Sat by Pulse Oximetry (%) 95 11/28/16 21:00 Constitutional: Yes: No Distress Cardiovascular: Yes: Regular Rate and Rhythm Respiratory: Yes: CTA Bilaterally Gastrointestinal: Yes: Normal Bowel Sounds, Soft Renal/: Yes: Other (condom catheter) Neurological: Yes: Other (Paraplegia) Discharge Summary Reason For Visit: COMPLICATED UTI Current Active Problems Constipation (Chronic) Hospital Course: Please refer to daily notes Pseudomonal UTI Completed treatment Constipation resolved Stable for discharge home Signals Analyst aware Condition: Fair - Instructions Diet, Activity, Other Instructions: As tolerated Disposition: HOME - Home Medications Comprehensive Discharge Medication List: Ambulatory Orders Diazepam [Valium] 10 mg PO TID PRN #30 tablet MDD 30mg 09/16/16 Morphine 10 mg/5 ml Liquid [Morphine 10 mg/5 mL Liquid -] 1 mg PO Q4H PRN Docusate Sodium [Colace -] 100 mg PO BID 11/29/16 Polyethylene Glycol 3350 [Miralax 119 gm Btl -] 17 gm PO BID bottle 11/29/16
[2016-11-29 08:51] LABS: MCH 29.3 pg (25.7-33.7); MCHC 33.1 g/dl (32.0-35.9); MEAN CELL VOLUME 88.4 fl (80-96); MEAN PLT VOLUME 9.6 fl (7.5-11.1); PLATELET COUNT 462 K/MM3 (134-434); RDW 16.6 % (11.9-15.9); WHITE BLOOD COUNT 9.1 K/mm3 (4.0-10.0)
[2016-11-29] MEDS: morphine SULFATE 10 MG/5 ML UNIT-DOSE CUP PO PRN ×2 (08:53→12:51)
[2016-11-29 09:17] LABS: CALCIUM 8.8 mg/dL (8.5-10.1); CREATININE 0.5 mg/dL (0.7-1.3)
[2016-11-29] MEDS ORDERED: PT OWN MED DRAWER 7, Y5N ONE (09:35)
[2016-11-29] MEDS: DOCUSATE SODIUM 100 MG CAPSULE (FP) PO SCH (09:38)
[2016-11-29] MEDS: POLYETHYLENE GLYCOL 3350 119 GM BTL PO SCH (09:39)
[2016-11-29 11:05] VITALS: BP 163/65; PULSE 53; TEMP 98
== END 2016-11-29 13:25 | disposition home or self-care (01) | DRG 690 ==
LOC: JER 10:59 → JERBED 15:44 → UNDOADMIN 15:44 → JERBED 15:54 → INTOOBSV 15:54 → J8W 11-24 03:08 → OBSVTOIN 11-24 10:58 → J8W 11-28 16:55
PROVIDERS: ADMIT Specialist; ATTEND Specialist
DX: N39.0 Urinary tract infection, site not specified (principal); G82.20 Paraplegia, unspecified; B96.5 Pseudomonas (aeruginosa) (mallei) (pseudomallei) as the cause of diseases classified elsewhere; G89.29 Other chronic pain; K59.00 Constipation, unspecified; Z87.891 Personal history of nicotine dependence
CPT/HCPCS: 36415; 76705-TC; 80048; 80053; 81003; 81015; 83735; 84100; 85025; 85027; 87040; 87086; 87186; 99284-25; G0378

== ENCOUNTER 2016-11-30 07:45 | Emergency (ER) | payer OTHER, BC ==
[2016-11-30 08:11] VITALS: BMI 16.7
--- NOTE | 2016-11-30 08:16 | PDOC ---
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 He reports that the suprapubic pain has increased in severity. The patient currently has a catheter in place. The patient was admitted on 11/24/2016 for abdominal pain and a diagnosed UTI. He was discharged on 11/29/16 after improvement of symptoms. The patient denies chest pain, shortness of breath, headache and dizziness. Denies fever, chills, nausea, vomit, diarrhea and constipation. Allergies: None Past surgical history: fracture right wrist s/p fusion Social history: +Alcohol use. No tobacco or drug use reported PMD - Dr. Daniel Kang <Sigifredo Salguero - Last Filed: 11/30/16 12:30> <Kymberly Harper - Last Filed: 11/30/16 14:23> - General Chief Complaint: Urinary Problem Stated Complaint: PAIN Time Seen by Provider: 11/30/16 08:14 Past History <Sigifredo Salguero - Last Filed: 11/30/16 12:30> - Past Medical History Anemia: No Asthma: No Cancer: No Cardiac Disorders: No CVA: No COPD: Yes CHF: No Dementia: No Diabetes: No GI Disorders: No Disorders: Yes (Recurrent UTI, 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) HTN: (Hypotension) Hypercholesterolemia: No Liver Disease: No Seizures: No Thyroid Disease: No - Surgical History Abdominal Surgery: No Appendectomy: No Cardiac Surgery: No Cholecystectomy: No Lung Surgery: No Neurologic Surgery: No Orthopedic Surgery: Yes (fracture right wrist s/p fusion) - Immunization History Td Vaccination: No Immunization Up to Date: No - Psycho/Social/Smoking Cessation Hx Anxiety: No Suicidal Ideation: No Smoking Status: No Smoking History: Former smoker Years of Tobacco Use: 0 Have you smoked in the past 12 months: No Number of Cigarettes Smoked Daily: 0 If you are a former smoker, when did you quit?: 1986 Cigars Per Day: 0 Information on smoking cessation initiated: No Hx Alcohol Use: Yes Drug/Substance Use Hx: Yes Substance Use Type: Alcohol Hx Substance Use Treatment: No <Kymberly Harper - Last Filed: 11/30/16 14:23> - Past Medical History Allergies/Adverse Reactions: Allergies Allergy/AdvReac Type Severity Reaction Status Date / Time No Known Allergies Allergy Verified 11/30/16 08:00 Home Medications: Ambulatory Orders Diazepam [Valium] 10 mg PO TID PRN #30 tablet MDD 30mg 09/16/16 Morphine 10 mg/5 ml Liquid [Morphine 10 mg/5 mL Liquid -] 1 mg PO Q4H PRN Docusate Sodium [Colace -] 100 mg PO BID 11/29/16 Polyethylene Glycol 3350 [Miralax 119 gm Btl -] 17 gm PO BID bottle 11/29/16 Review of Systems - Review of Systems Able to Perform ROS?: Yes Comments:: 11/30/16 08:50 GENERAL/CONSTITUTIONAL: No fever or chills. No weakness. HEAD, EYES, EARS, NOSE AND THROAT: No change in vision. No ear pain or discharge. No sore throat. CARDIOVASCULAR: No chest pain or shortness of breath RESPIRATORY: No cough, wheezing, or hemoptysis. GASTROINTESTINAL: +Suprapubic abdominal pain. No nausea, vomiting, diarrhea or constipation. GENITOURINARY: No dysuria, frequency, or change in urination. MUSCULOSKELETAL: No joint or muscle swelling or pain. No neck or back pain. SKIN: No rash NEUROLOGIC: No headache, vertigo, loss of consciousness, or change in strength/ sensation. ENDOCRINE: No increased thirst. No abnormal weight change HEMATOLOGIC/LYMPHATIC: No anemia, easy bleeding, or history of blood clots. ALLERGIC/IMMUNOLOGIC: No hives or skin allergy. <Sigifredo Salguero - Last Filed: 11/30/16 12:30> *Physical Exam - Vital Signs Last Vital Signs Temp Pulse Resp BP Pulse Ox 97.4 F L 67 16 158/88 99 11/30/16 07:50 11/30/16 07:50 11/30/16 07:50 11/30/16 07:50 11/30/16 07:50 - Physical Exam Comments: 11/30/16 08:50 GENERAL: Awake, alert, and fully oriented, Appears uncomfortable HEAD: No signs of trauma, normocephalic, atraumatic EYES: PERRLA, EOMI, sclera anicteric, conjunctiva clear ENT: Auricles normal inspection, hearing grossly normal, nares patent, oropharynx clear without exudates. Moist mucosa NECK: Normal ROM, supple, no lymphadenopathy, JVD, or masses LUNGS: No distress, speaks full sentences, clear to auscultation bilaterally HEART: Regular rate and rhythm, normal S1 and S2, no murmurs, rubs or gallops, peripheral pulses normal and equal bilaterally. ABDOMEN: Soft, unable to determine tenderness, normoactive bowel sounds. No guarding, no rebound. No masses EXTREMITIES: +Atrophy in the lower extremities bilaterally, no edema. No clubbing or cyanosis. NEUROLOGICAL: Cranial nerves II through XII grossly intact. Normal speech, paraplegic SKIN: Warm, Dry, normal turgor, no rashes or lesions noted. <Sgiifredo Salguero - Last Filed: 11/30/16 12:30> - Vital Signs Last Vital Signs Temp Pulse Resp BP Pulse Ox 97.4 F L 67 16 158/88 99 11/30/16 07:50 11/30/16 07:50 11/30/16 07:50 11/30/16 07:50 11/30/16 07:50 <Kymberly Harper - Last Filed: 11/30/16 14:23> ED Treatment Course - LABORATORY CBC & Chemistry Diagram: 11/30/16 09:00 11/30/16 09:00 - RADIOLOGY Radiograph Interpretation: 11/30/16 10:52 CT scan abdomen and pelvis Reviewed by: Dr. Sylvain Butt Impression: In comparison to a previous CT exam of 09/09/2016 interval development of a 0.2 cm nonobstructing right renal calculus is noted. No definite ureteral calculus is identified. There is no evidence of hydrouretonephrosis. Interval development of a small amount of debris or nonspecific soft tissue thickening is seen along the right lateral border of the urinary bladder. The remainder of the study demonstrates no definite interval change. Urinary bladder calculi are visualized. A nonspecific noncalcified spiculated 1.5 x 0.8 cm left lower lobe pulmonary nodule is noted with contigous mild interstitial thickening. This finding may be on the basis of primary neoplastic disease. No obvious interval change is seen in comparison to the prior CT study. There is also an unchanged 0.9 x 0.5 cm nonspecific right lower lobe pulmonary nodul. Probably centriobular emphysema. Hyperinflation of the partially imaged left lung field as noted on prior chest radiographs. Mild unchanged common kimberley duct dilatation with a 0.8 cm diameter. S/p splenectomy with several small spherical soft tissue foci in the splenic fossa probably representing residual splenic tissue. 1.1 cm left adrenal nodule probably representing an adenoma on a statistical basis. <Sigifredo Salguero - Last Filed: 11/30/16 12:30> - LABORATORY CBC & Chemistry Diagram: 11/30/16 09:00 11/30/16 09:00 <Kymberly Harper - Last Filed: 11/30/16 14:23> Medical Decision Making - Medical Decision Making 11/30/16 11:26 Dr. Daniel Kang was called regarding the patient at 10:51am Dr. Neely covering Dr. Neely was consulted regarding the patient at 10:52am [phone] <Sigifredo Salguero - Last Filed: 11/30/16 12:30> - Medical Decision Making Case d/w Dr. Kang via phone. Patient has very small non-obstructing stone. As per Dr. Kang, this is similar to prior pain. Patient has completed course of abx for the UTI as inpatient, has morphine at home for pain. D/w patient, will manage his pain at home with morphine. <Kymberly Harper - Last Filed: 11/30/16 14:23> *DC/Admit/Observation/Transfer - Attestations Scribe Attestion: 11/30/16 08:53 Documentation prepared by Sigifredo Salguero, acting as senior medical director for Kymberly Harper MD <Sigifredo Salguero - Last Filed: 11/30/16 12:30> - Discharge Dispostion Admit: No <Kymberly Harper - Last Filed: 11/30/16 14:23> Diagnosis at time of Disposition: Abdominal pain Qualifiers: Abdominal location: unspecified location Qualified Code(s): R10.9 - Unspecified abdominal pain - Discharge Dispostion Disposition: HOME Condition at time of disposition: Stable - Referrals Referrals: Nikolas Wright MD [Staff Physician] - Juan Manuel Kang MD [Primary Care Provider] - - Patient Instructions Printed Discharge Instructions: DI for Kidney Stones, DI for Abdominal Pain- Adult
[2016-11-30] MEDS ORDERED: morphine CARPU-JECT 4 MG/1 ML DISP.SYRIN IVPUSH ONE (08:43)
[2016-11-30] MEDS ORDERED: SODIUM CHLORIDE 1,000 ML IV STA (08:43)
[2016-11-30 08:56] LABS: URINE APPEARANCE CLEAR; URINE BILIRUBIN NEGATIVE (NEGATIVE); URINE COLOR STRAW; URINE GLUCOSE (UA) NEGATIVE (NEGATIVE); URINE KETONE NEGATIVE (NEGATIVE); URINE NITRITE NEGATIVE (NEGATIVE); URINE PROTEIN NEGATIVE (NEGATIVE); URINE UROBILINOGEN NEGATIVE E.U./dl (0.2-1.0)
[2016-11-30] MEDS ORDERED: morphine CARPU-JECT 4 MG/1 ML DISP.SYRIN ONE (08:59)
[2016-11-30 09:01] LABS: URINE BLOOD 1+ (NEGATIVE); URINE LEUK ESTERASE 1+ (NEGATIVE)
[2016-11-30 09:05] LABS: URINE BACTERIA RARE /hpf (NONE SEEN); URINE RBC 2 /hpf (0-3); URINE WBC 2 /hpf (3-5)
[2016-11-30 09:19] LABS: BASOPHIL 1.4 % (0-2.0); MCH 28.9 pg (25.7-33.7); MCHC 32.5 g/dl (32.0-35.9); MEAN PLT VOLUME 8.5 fl (7.5-11.1); NEUTROPHILS 70.5 % (42.8-82.8); PLATELET COUNT 474 K/MM3 (134-434); RDW 16.7 % (11.9-15.9); WHITE BLOOD COUNT 9.7 K/mm3 (4.0-10.0)
[2016-11-30 09:48] LABS: ALK PHOS 264 U/L (45-117); ANION GAP 9 (8-16); BILIRUBIN,TOTAL 0.7 mg/dL (0.2-1.0); CALCIUM 8.9 mg/dL (8.5-10.1); CO2 28 mmol/L (21-32); CREATININE 0.6 mg/dL (0.7-1.3); GLUCOSE,RANDOM 80 mg/dL (74-106); SGOT/AST 19 U/L (15-37); SGPT/ALT 11 U/L (12-78); TOT PROT 7.1 g/dl (6.4-8.2)
[2016-11-30] MEDS ORDERED: morphine CARPU-JECT 2 MG/1 ML DISP.SYRIN IVPUSH ONE (11:11)
[2016-11-30] MEDS ORDERED: morphine CARPU-JECT 2 MG/1 ML DISP.SYRIN ONE (11:20)
[2016-11-30 11:59] VITALS: BP 132/60; PULSE 60; TEMP 98
== END 2016-11-30 11:59 | disposition home or self-care (01) ==
LOC: JER 07:45
PROC: 3E0337Z Introduction of Electrolytic and Water Balance Substance into Peripheral Vein, Percutaneous Approach (ICD-10-PCS; principal; 2016-11-30)
PROC: 3E033NZ Introduction of Analgesics, Hypnotics, Sedatives into Peripheral Vein, Percutaneous Approach (ICD-10-PCS; 2016-11-30)
DX: N20.0 Calculus of kidney (principal); Z87.442 Personal history of urinary calculi; G82.20 Paraplegia, unspecified; J44.9 Chronic obstructive pulmonary disease, unspecified
CPT/HCPCS: 36415; 74176; 80053; 81003; 81015; 85025; 87086; 96361; 96374; 99282-25

== ENCOUNTER 2017-02-22 14:30 | Inpatient (IN) | payer OTHER, BC ==
[2017-02-22 14:51] VITALS: BMI 18.2
--- NOTE | 2017-02-22 16:11 | PDOC ---
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 The patient complains of abdominal pain and relates it to his typical bladder infection. Yesterday (02/21/17), the patient was seen in the ED, had a CT scan performed, and was discharged with a prescription of Macrobid and sent home, however he states that his pain has worsened. He states that he typically takes morphine and valium for his pain. The patient denies any fevers, chills, nausea , vomiting, diarrhea, cough, shortness of breath, chest pains, or urinary symptoms. Allergies: None PCP: Dr. 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) HTN: (Hypotension) Hypercholesterolemia: No Liver Disease: No Seizures: No Thyroid Disease: No - Surgical History Abdominal Surgery: No Appendectomy: No Cardiac Surgery: No Cholecystectomy: No Lung Surgery: No Neurologic Surgery: No Orthopedic Surgery: Yes (fracture right wrist s/p fusion) - Immunization History Td Vaccination: No Immunization Up to Date: No - Psycho/Social/Smoking Cessation Hx Anxiety: No Suicidal Ideation: No Smoking Status: No Smoking History: Never smoked Years of Tobacco Use: 0 Have you smoked in the past 12 months: No Number of Cigarettes Smoked Daily: 3 If you are a former smoker, when did you quit?: 1986 Cigars Per Day: 0 Hx Alcohol Use: Yes (OCCASIONALLY) Drug/Substance Use Hx: No Substance Use Type: Alcohol Hx Substance Use Treatment: No <Kymberly Harper - Last Filed: 02/23/17 10:56> - Past Medical History Allergies/Adverse Reactions: Allergies Allergy/AdvReac Type Severity Reaction Status Date / Time No Known Allergies Allergy Verified 02/21/17 03:57 Home Medications: Ambulatory Orders Diazepam [Valium] 10 mg PO TID PRN #30 tablet MDD 30mg 09/16/16 Morphine 10 mg/5 ml Liquid [Morphine 10 mg/5 mL Liquid -] 1 mg PO Q4H PRN Nitrofurantoin Monohyd/M-Cryst [Macrobid -] 100 mg PO BID #14 capsule 02/21/17 Review of Systems - Review of Systems Able to Perform ROS?: Yes Comments:: 02/22/17 16:33 GENERAL/CONSTITUTIONAL: No fever or chills. No weakness. HEAD, EYES, EARS, NOSE AND THROAT: No change in vision. No ear pain or discharge. No sore throat. CARDIOVASCULAR: No chest pain or shortness of breath. RESPIRATORY: No cough, wheezing, or hemoptysis. GASTROINTESTINAL: Present: LLQ pain No nausea, vomiting, diarrhea or constipation. GENITOURINARY: No dysuria, frequency, or change in urination. MUSCULOSKELETAL: No joint or muscle swelling or pain. No neck or back pain. SKIN: No rash NEUROLOGIC: No headache, vertigo, loss of consciousness, or change in strength/ sensation. ENDOCRINE: No increased thirst. No abnormal weight change. HEMATOLOGIC/LYMPHATIC: No anemia, easy bleeding, or history of blood clots. ALLERGIC/IMMUNOLOGIC: No hives or skin allergy. All Other Systems: Reviewed and Negative <Patti Larry - Last Filed: 02/22/17 16:32> *Physical Exam - Vital Signs Last Vital Signs Temp Pulse Resp BP Pulse Ox 98.2 F 64 18 190/71 95 02/22/17 14:30 02/22/17 14:30 02/22/17 14:30 02/22/17 14:30 02/22/17 14:30 - Physical Exam Comments: 02/22/17 16:33 GENERAL: Awake, alert, and fully oriented, in no acute distress HEAD: No signs of trauma EYES: PERRLA, EOMI, sclera anicteric, conjunctiva clear ENT: Auricles normal inspection, hearing grossly normal, nares patent, oropharynx clear without exudates. Moist mucosa NECK: Normal ROM, supple, no lymphadenopathy, JVD, or masses LUNGS: Breath sounds equal, clear to auscultation bilaterally. No wheezes, and no crackles HEART: Regular rate and rhythm, normal S1 and S2, no murmurs, rubs or gallops ABDOMEN: Condom catheter in place with cloudy, yellow urine, tenderness to LLQ, Soft, normoactive bowel sounds. No guarding, no rebound. No masses EXTREMITIES: Normal range of motion, no edema. No clubbing or cyanosis. No cords, erythema, or tenderness NEUROLOGICAL: Paraplegic. Cranial nerves II through XII grossly intact. Normal speech. SKIN: Warm, Dry, normal turgor, no rashes or lesions noted. <Patti Larry - Last Filed: 02/22/17 16:32> - Vital Signs Last Vital Signs Temp Pulse Resp BP Pulse Ox 98.2 F 64 18 190/71 95 02/22/17 14:30 02/22/17 14:30 02/22/17 14:30 02/22/17 14:30 02/22/17 14:30 <Kymberly Harper - Last Filed: 02/23/17 10:56> ED Treatment Course - LABORATORY CBC & Chemistry Diagram: 02/23/17 06:17 02/23/17 06:17 <Kymberly Harper - Last Filed: 02/23/17 10:56> Medical Decision Making - Medical Decision Making Patient was treated in ED with macrobid, previous UA was negative. UA is currently positive, suggesting he is not responding to the macrobid. I reviewed his last UCx, which showed pseudomonas that was resistant to aztreonam and levaquin. I will give zosyn and admit. He was initially refusing admission, but I explained that without culture results to guide antibiotic selection, he should have IV antibiotics covering most recent culture results, otherwise may be at risk for pyelo. <Kymberly Harper - Last Filed: 02/23/17 10:56> *DC/Admit/Observation/Transfer - Attestations Scribe Attestion: 02/22/17 16:34 Documentation prepared by Patti Larry, acting as director medical safety for Kymberly Harper MD. <Patti Larry - Last Filed: 02/22/17 16:32> - Discharge Dispostion Admit: Yes <Kymberly Harper - Last Filed: 02/23/17 10:56> Diagnosis at time of Disposition: Acute UTI - Discharge Dispostion Condition at time of disposition: Stable
[2017-02-22] MEDS ORDERED: morphine CARPU-JECT 4 MG/1 ML DISP.SYRIN IVPUSH ONE ×3 (16:14→17:37)
[2017-02-22] MEDS ORDERED: SODIUM CHLORIDE 1,000 ML IV STA ×2 (16:14→17:37)
[2017-02-22] MEDS ORDERED: morphine CARPU-JECT 2 MG/1 ML DISP.SYRIN ONE (16:25)
[2017-02-22] MEDS ORDERED: morphine CARPU-JECT 4 MG/1 ML DISP.SYRIN ONE ×2 (16:26→18:10)
[2017-02-22 16:57] LABS: BASOPHIL 0.6 % (0-2.0); EOSINOPHIL 1.8 % (0-4.5); MCH 28.5 pg (25.7-33.7); MCHC 32.7 g/dl (32.0-35.9); MEAN CELL VOLUME 87.3 fl (80-96); MEAN PLT VOLUME 8.4 fl (7.5-11.1); NEUTROPHILS 78.9 % (42.8-82.8); PLATELET COUNT 336 K/MM3 (134-434); RDW 16.3 % (11.9-15.9); WHITE BLOOD COUNT 11.4 K/mm3 (4.0-10.0)
[2017-02-22 17:03] LABS: URINE APPEARANCE SLCLOUDY; URINE BILIRUBIN NEGATIVE (NEGATIVE); URINE COLOR YELLOW; URINE GLUCOSE (UA) NEGATIVE (NEGATIVE); URINE KETONE 1+ (NEGATIVE); URINE NITRITE POSITIVE (NEGATIVE); URINE PROTEIN NEGATIVE (NEGATIVE); URINE UROBILINOGEN NEGATIVE E.U./dl (0.2-1.0)
[2017-02-22 17:04] LABS: URINE BLOOD 1+ (NEGATIVE); URINE LEUK ESTERASE 2+ (NEGATIVE)
[2017-02-22 17:05] LABS: URINE BACTERIA RARE /hpf (NONE SEEN); URINE HYALINE CAST 1 /lpf; URINE MUCUS RARE; URINE RBC 14 /hpf (0-3); URINE WBC 11 /hpf (3-5)
[2017-02-22 17:24] LABS: ALBUMIN 3.4 g/dl (3.4-5.0); ALK PHOS 193 U/L (45-117); ANION GAP 9 (8-16); BILIRUBIN,TOTAL 0.8 mg/dL (0.2-1.0); CALCIUM 8.8 mg/dL (8.5-10.1); CO2 29 mmol/L (21-32); CREATININE 0.6 mg/dL (0.7-1.3); GLUCOSE,RANDOM 79 mg/dL (74-106); SGOT/AST 25 U/L (15-37); SGPT/ALT 25 U/L (12-78); TOT PROT 7.3 g/dl (6.4-8.2)
[2017-02-22] MEDS ORDERED: PIPERACILLIN/TAZOB 3.375 GM 3.375 GM in DEXTROSE 5%-WATER - 50 ML IVPB ONE (17:32)
[2017-02-22] MEDS ORDERED: morphine SULFATE 10 MG/5 ML UNIT-DOSE CUP PO PRN (17:56)
[2017-02-22] MEDS ORDERED: ACETAMINOPHEN 325 MG TABLET (FP) PO PRN (17:58)
[2017-02-22] MEDS ORDERED: PIPERACILLIN/TAZOB 3.375 GM 50 ML IVPB ONE ×2 (18:10→18:22)
[2017-02-22] MEDS ORDERED: HEPARIN NA (PORCINE) 5,000 UNITS/ML 1ML VIAL ONE (21:37)
[2017-02-22] MEDS: HEPARIN NA (PORCINE) 5,000 UNITS/ML 1ML VIAL SQ SCH (21:46)
[2017-02-23] MEDS ORDERED: PIPERACILLIN/TAZOB 3.375 GM/50 ML PRE-DOCKED IVPB SCH (02:00)
[2017-02-23] MEDS ORDERED: PIPERACILLIN/TAZOB 3.375 GM 50 ML IVPB ONE (04:22)
[2017-02-23] MEDS: PIPERACILLIN/TAZOB 3.375 GM/50 ML PRE-DOCKED IVPB SCH ×2 (05:13→09:30)
[2017-02-23 06:39] LABS: BASOPHIL 0.4 % (0-2.0); EOSINOPHIL 2.5 % (0-4.5); MCH 29.1 pg (25.7-33.7); MCHC 33.2 g/dl (32.0-35.9); MEAN CELL VOLUME 87.5 fl (80-96); MEAN PLT VOLUME 8.5 fl (7.5-11.1); NEUTROPHILS 80.2 % (42.8-82.8); PLATELET COUNT 343 K/MM3 (134-434); RDW 16.6 % (11.9-15.9); WHITE BLOOD COUNT 12.5 K/mm3 (4.0-10.0)
[2017-02-23 07:06] LABS: ALBUMIN 3.2 g/dl (3.4-5.0); ANION GAP 10 (8-16); BILIRUBIN,TOTAL 0.5 mg/dL (0.2-1.0); CO2 26 mmol/L (21-32); CREATININE 0.7 mg/dL (0.7-1.3); GLUCOSE,RANDOM 89 mg/dL (74-106); SGOT/AST 21 U/L (15-37); SGPT/ALT 19 U/L (12-78); TOT PROT 6.8 g/dl (6.4-8.2)
[2017-02-23 07:07] LABS: ALK PHOS 165 U/L (45-117)
[2017-02-23] MEDS ORDERED: diazePAM 5 MG TABLET ONE (10:20)
[2017-02-23] MEDS: HEPARIN NA (PORCINE) 5,000 UNITS/ML 1ML VIAL SQ SCH ×2 (10:55→21:37)
[2017-02-23] MEDS: diazePAM 5 MG TABLET PO PRN ×2 (10:55→17:34)
--- NOTE | 2017-02-23 12:27 | HP ---
Admitting History and Physical - Primary Care Physician PCP: Juan Manuel Kang - Admission Chief Complaint: dysuria History of Present Illness: Recent ER visits for dysuria. 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 (T2 spinal fracture)) Renal/: Yes: Other (Bladder dysfunction) Infectious Disease: Yes: Other (multiple UTIs Pseudomonas) Musculoskeletal: Yes: Other (Chronic pain) - Past Surgical History Past Surgical History: Yes: Splenectomy - Smoking History Smoking history: Never smoked Have you smoked in the past 12 months: No Aproximately how many cigarettes per day: 3 If you are a former smoker, when did you quit?: 1985 - Alcohol/Substance Use Hx Alcohol Use: Yes (OCCASIONALLY) History of Substance Use: reports: Marijuana - Social History 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 History of Recent Travel: No Home Medications - Allergies Allergies/Adverse Reactions: Allergies Allergy/AdvReac Type Severity Reaction Status Date / Time No Known Allergies Allergy Verified 02/21/17 03:57 - Home Medications Home Medications: Ambulatory Orders Diazepam [Valium] 10 mg PO TID PRN #30 tablet MDD 30mg 09/16/16 Morphine 10 mg/5 ml Liquid [Morphine 10 mg/5 mL Liquid -] 1 mg PO Q4H PRN Nitrofurantoin Monohyd/M-Cryst [Macrobid -] 100 mg PO BID #14 capsule 02/21/17 Family Disease History - Family Disease History Family Disease History: Heart Disease: Father Review of Systems - Review of Systems Constitutional: reports: Other (Feels cold at usual room temperatures) Cardiovascular: reports: No Symptoms Respiratory: reports: No Symptoms Gastrointestinal: reports: No Symptoms Genitourinary: reports: Burning, Dysuria Musculoskeletal: reports: Back Pain Neurological: reports: Other (paraplegia as above) Physical Examination Vital Signs: Vital Signs Temperature 98.1 F 02/23/17 08:00 Pulse Rate 55 L 02/23/17 08:00 Respiratory Rate 18 02/23/17 08:00 Blood Pressure 158/69 02/23/17 08:00 O2 Sat by Pulse Oximetry (%) 96 02/23/17 08:00 Constitutional: Yes: Mild Distress Eyes: No: Sclera Icterus HENT: Yes: Atraumatic Neck: Yes: Supple Cardiovascular: Yes: Regular Rate and Rhythm Respiratory: Yes: CTA Bilaterally Gastrointestinal: Yes: Normal Bowel Sounds, Soft. No: Tenderness Edema: No Neurological: Yes: Alert, Oriented Labs: CBC, BMP 02/23/17 06:17 02/23/17 06:17 Problem List - Problems (1) Acute UTI Assessment/Plan: Await culture Empiric Rx for now ID and urologic assessment Code(s): N39.0 - URINARY TRACT INFECTION, SITE NOT SPECIFIED (2) Bladder pain Assessment/Plan: As above Code(s): R39.89 - OTHER SYMPTOMS AND SIGNS INVOLVING THE GENITOURINARY SYSTEM (3) Chronic pain Assessment/Plan: Continue current Rx Code(s): G89.29 - OTHER CHRONIC PAIN (4) Paraplegia Assessment/Plan: Chronic stable Requires home health aid Code(s): G82.20 - PARAPLEGIA, UNSPECIFIED (5) Constipation Assessment/Plan: Chronic stable Code(s): K59.00 - CONSTIPATION, UNSPECIFIED Assessment/Plan Full extensive problem list as per old charts
--- NOTE | 2017-02-23 14:51 | CONSULT ---
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 (paraplegia due to accidental fall (T2 spinal fracture)) Renal/: Yes: Other (Bladder dysfunction) Infectious Disease: Yes: Other (multiple UTIs Pseudomonas) Musculoskeletal: Yes: Other (Chronic pain) - Past Surgical History Past Surgical History: Yes: Splenectomy - Alcohol/Substance Use Hx Alcohol Use: Yes (OCCASIONALLY) History of Substance Use: reports: Marijuana - Smoking History Smoking history: Never smoked Have you smoked in the past 12 months: No Aproximately how many cigarettes per day: 3 If you are a former smoker, when did you quit?: 1985 - Social History Usual Living Arrangement: With Significant Other 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 History of Recent Travel: No Home Medications - Allergies Allergies/Adverse Reactions: Allergies Allergy/AdvReac Type Severity Reaction Status Date / Time No Known Allergies Allergy Verified 02/21/17 03:57 - Home Medications Home Medications: Ambulatory Orders Diazepam [Valium] 10 mg PO TID PRN #30 tablet MDD 30mg 09/16/16 Morphine 10 mg/5 ml Liquid [Morphine 10 mg/5 mL Liquid -] 1 mg PO Q4H PRN Nitrofurantoin Monohyd/M-Cryst [Macrobid -] 100 mg PO BID #14 capsule 02/21/17 Family Disease History - Family Disease History Family Disease History: Heart Disease: Father Review of Systems - Review of Systems Constitutional: reports: No Symptoms Eyes: reports: No Symptoms HENT: reports: No Symptoms Neck: reports: No Symptoms Cardiovascular: reports: No Symptoms Respiratory: reports: No Symptoms Gastrointestinal: reports: No Symptoms Genitourinary: reports: Other (suprapubic pain) Neurological: reports: No Symptoms Endocrine: reports: No Symptoms Hematology/Lymphatic: reports: No Symptoms Psychiatric: reports: No Symptoms Physical Exam Vital Signs: Vital Signs Temperature 98.2 F 02/23/17 14:18 Pulse Rate 64 06/18/17 14:18 Respiratory Rate 18 02/23/17 14:18 Blood Pressure 155/68 02/23/17 14:18 O2 Sat by Pulse Oximetry (%) 95 02/23/17 14:18 Constitutional: Yes: Calm, Mild Distress Eyes: Yes: Conjunctiva Clear Neck: Yes: Supple Cardiovascular: Yes: Regular Rate and Rhythm Respiratory: Yes: Regular, CTA Bilaterally Gastrointestinal: Yes: Normal Bowel Sounds, Soft Renal/: Yes: Other (suprapubic pain) Musculoskeletal: Yes: Other Extremities: Yes: Other Neurological: Yes: Alert Psychiatric: Yes: Alert Labs: CBC, BMP 02/23/17 06:17 02/23/17 06:17 Assessment/Plan roblem List - Problems (1) Acute UTI Code(s): N39.0 - URINARY TRACT INFECTION, SITE NOT SPECIFIED (2) Bladder pain Code(s): R39.89 - OTHER SYMPTOMS AND SIGNS INVOLVING THE GENITOURINARY SYSTEM (3) Chronic pain Code(s): G89.29 - OTHER CHRONIC PAIN (4) Paraplegia Code(s): G82.20 - PARAPLEGIA, UNSPECIFIED (5) Constipation Code(s): K59.00 - CONSTIPATION, UNSPECIFIED plan will start patient on zosyn' await for cx reports
[2017-02-23] MEDS: PIPERACILLIN/TAZOB 3.375 GM 50 ML IVPB SCH (17:12)
[2017-02-23] MEDS: morphine SULFATE 10 MG/5 ML UNIT-DOSE CUP PO PRN (18:20)
[2017-02-24] MEDS: diazePAM 5 MG TABLET PO PRN (00:28)
[2017-02-24] MEDS: morphine SULFATE 10 MG/5 ML UNIT-DOSE CUP PO PRN (00:29)
[2017-02-24] MEDS: PIPERACILLIN/TAZOB 3.375 GM 50 ML IVPB SCH ×3 (01:23→18:20)
[2017-02-24 09:59] LABS: BASOPHIL 0.9 % (0-2.0); MCH 29.5 pg (25.7-33.7); MCHC 33.7 g/dl (32.0-35.9); MEAN CELL VOLUME 87.6 fl (80-96); MEAN PLT VOLUME 8.7 fl (7.5-11.1); NEUTROPHILS 74.1 % (42.8-82.8); PLATELET COUNT 268 K/MM3 (134-434); RDW 16.5 % (11.9-15.9); WHITE BLOOD COUNT 10.3 K/mm3 (4.0-10.0)
[2017-02-24 10:26] LABS: ALBUMIN 3.1 g/dl (3.4-5.0); ANION GAP 11 (8-16); CALCIUM 8.8 mg/dL (8.5-10.1); CO2 27 mmol/L (21-32); CREATININE 0.6 mg/dL (0.7-1.3); GLUCOSE,RANDOM 107 mg/dL (74-106); SGOT/AST 19 U/L (15-37); SGPT/ALT 18 U/L (12-78)
[2017-02-24 10:27] LABS: ALK PHOS 150 U/L (45-117); BILIRUBIN,TOTAL 0.8 mg/dL (0.2-1.0); TOT PROT 6.8 g/dl (6.4-8.2)
[2017-02-24] MEDS ORDERED: SODIUM CHLORIDE 1,000 ML IV STA (10:40)
--- NOTE | 2017-02-24 10:56 | PN ---
Physical Exam: SUBJECTIVE: Patient seen and examined at the bedside, states he feels like he is "burning up" Denies chest pain. Called by RN for hypotension. OBJECTIVE: Normal saline bolus of 1000cc x 1 for hypotension Patient denies chest pain or shortness of breath heart rate noted to be irregular ordered repeat CBC/BMP, troponinx 1, EKG stat Repeat blood and urine cultures ordered EKG atrial fibrillation with RVR @ 159: cardiology consult Will start on heparin drip, ASA 324mg x 1 > transfer to telemonitoring, cardiology consulted (Dr. Luong) Patient hypotensive 80s/40s, will not order betablocker until BP more stable Spoke to Dr Luong: advised to order cardizem 10mg x 1 to control heart rate although hypotensive Vital Signs Period Temp Pulse Resp BP Sys/Roche Pulse Ox Last 24 Hr 98.0 F-98.5 F 53-64 18-20 102-155/50-73 95-97 GENERAL: The patient is awake, alert, and fully oriented, in no acute distress. HEAD: Normal with no signs of trauma. EYES: PERRL, extraocular movements intact, sclera anicteric, conjunctiva clear. No ptosis. ENT: Ears normal, nares patent, oropharynx clear without exudates, moist mucous membranes. NECK: Trachea midline, full range of motion, supple. LUNGS: Breath sounds equal, clear to auscultation bilaterally HEART: Irregular heart rate 90s -- ekg ordered ABDOMEN: Soft, nontender, nondistended, normoactive bowel sounds, no guarding, no rebound, no hepatosplenomegaly, no masses. EXTREMITIES: paraplegia, bed bound NEUROLOGICAL: Normal speech PSYCH: Normal mood, normal affect. Laboratory Results - last 24 hr 02/24/17 02/24/17 09:40 09:40 WBC 10.3 H RBC 4.61 Hgb 13.6 Hct 40.4 MCV 87.6 MCHC 33.7 RDW 16.5 H Plt Count 268 D MPV 8.7 Neutrophils % 74.1 Lymphocytes % 13.4 D Monocytes % 9.6 Eosinophils % 2.0 Basophils % 0.9 Sodium 140 Potassium 3.5 Chloride 102 Carbon Dioxide 27 Anion Gap 11 BUN 10 Creatinine 0.6 L Creat Clearance w eGFR > 60 Random Glucose 107 H D Calcium 8.8 Total Bilirubin 0.8 D AST 19 ALT 18 Alkaline Phosphatase 150 H Total Protein 6.8 Albumin 3.1 L Active Medications Generic Name Dose Route Start Last Admin Trade Name Freq PRN Reason Stop Dose Admin Acetaminophen 650 mg 02/22/17 17:58 Tylenol - PO Q6H PRN FEVER OR PAIN Diazepam 10 mg 02/22/17 17:56 02/24/17 00:28 Valium - PO 10 mg TID PRN Administration muscle spasms Heparin Sodium (Porcine) 5,000 unit 02/22/17 22:00 02/23/17 21:37 Heparin - SQ 5,000 unit BID ZAIRA Administration Piperacillin Sod/Tazobactam Sod 50 mls @ 100 mls/hr 02/23/17 16:00 02/24/17 01: 23 Zosyn 3.375gm Ivpb (Pre-Docked) IVPB 100 mls/hr Q8H-IV ZAIRA Administration Protocol Sodium Chloride 1,000 mls @ 1,000 mls/hr 02/24/17 10:40 Normal Saline - IV 02/24/17 11:39 ASDIR STA Morphine Sulfate 4 mg 02/23/17 17:53 02/24/17 00:29 Morphine 10 Mg/5 Ml Liquid PO 4 mg Q4H PRN Administration PAIN ASSESSMENT/PLAN: The patient is a 61 year old male with a significant past medical history of paraplegia below T2, COPD and recurrent UTIs who presents to the ED on 2016 with acute UTI. I was called by primary RN to patient's bedside stat for hypotension and patient stating that he feels like he is "burning" or feeling "feverish". On exam I noted his heart rate to be irregular. He denied any shortness of breath or chest pain. EKG 02/24/2017: EKG with atrial fib. with RVR @159, marked ST abnormality, possible inferior subcardial injury when compared with EKG of 08/2016, atrial fib has replaced sinus rhythm. Cardiology: Atrial Fibrillation with RVR - new onset Assessment/Plan: EKG confirms atrial fib with RVR ASA 325mg x 1 ordered, will add ASA 81mg daily Start on heparin drip Cardizem 10mg x 1 for rate control Lopressor BID for rate control Heparin drip for a/c +Troponins>0.20, awaiting two more Hypotension - acute Assessment/Plan: Likely secondary to new onset afib. and sepsis NS x 1 bolus stat Cardizem 10mg x 1 for rate control Vitals q4, monitor on tele > transfer to tele floor initiated, awaiting bed assignment Repeat lactic acid ID: Acute UTI Assessment/Plan: Repeat blood and urine cultures ordered Repet lactic acid ordered On Zosyn q8 Monitor blood cultures, vitals ID consulted and following Urology following Muscular/Skeletal: Paraplegia - chronic Assessment/Plan: Monitor skin integrity, turn and position q 2, high risk for skin breakdown Pt encouraged to shift his weight, will benefit from a bed trapeze. Monitor closely Pain Management - chronic Assessment/Plan: Continue morphine and Valium F.E.N. Fluids: Normal Saline at 100cc/hr maintenance fluids after fluid bolus Electrolytes: within normal limits Can continue regular diet Prophylaxis: DVT: heparin drip Disposition. Continues to require inpatient hospitalization. Full Code. Coverage for Dr. Singer. Visit type - Emergency Visit Emergency Visit: Yes ED Registration Date: 02/22/17 Care time: The patient presented to the Emergency Department on the above date and was hospitalized for further evaluation of their emergent condition. - New Patient This patient is new to me today: Yes Date on this admission: 02/24/17 - Critical Care Critical Care patient: No - Discharge Referral Referred to [facility] Med [facility].C[facility] No
[2017-02-24] MEDS ORDERED: HEPARIN NA (PORCINE) 5,000 UNITS/ML 1ML VIAL IVPUSH PRN ×2 (11:07)
[2017-02-24] MEDS ORDERED: ASPIRIN 325 MG TABLET PO ONE ×2 (11:10→12:15)
[2017-02-24] MEDS ORDERED: dilTIAZem HCL 50 MG/10 ML - 10 ML VIAL IVPUSH ONE (11:18)
--- NOTE | 2017-02-24 11:34 | CON.CARD ---
Consult Consult Specialty:: Cardiology Referred by:: Hospitalist Medicine Reason for Consultation:: Rapid atrial fibrillation - History of Present Illness Chief Complaint: Dyspnea, flushing History of Present Illness: 61 yo paraplegia due to accidental fall (T2 spinal fracture), chronic pain syndrome, neurogenic bladder and recurrent UTIs with most recent UTI resistant to oral therapies initially presented with dysuria and started in IV abx, this AM reports flushing, hypotension, found to be in rapid afib @ 160, given IVF, IV Cardizem, denies chest pain, dyspneam near or true syncope, palpitations, orthopnea or LE edema. 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 (paraplegia due to accidental fall (T2 spinal fracture)) Renal/: Yes: Neurogenic Bladder, Other (Bladder dysfunction) Infectious Disease: Yes: Other (multiple UTIs Pseudomonas) Musculoskeletal: Yes: Other (Chronic pain) - Past Surgical History Past Surgical History: Yes: Splenectomy - Alcohol/Substance Use Hx Alcohol Use: Yes (OCCASIONALLY) History of Substance Use: reports: Marijuana - Smoking History Smoking history: Never smoked Have you smoked in the past 12 months: No Aproximately how many cigarettes per day: 3 If you are a former smoker, when did you quit?: 1985 - Social History Usual Living Arrangement: With Significant Other 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 History of Recent Travel: No Home Medications - Allergies Allergies/Adverse Reactions: Allergies Allergy/AdvReac Type Severity Reaction Status Date / Time No Known Allergies Allergy Verified 02/21/17 03:57 - Home Medications Home Medications: Ambulatory Orders Diazepam [Valium] 10 mg PO TID PRN #30 tablet MDD 30mg 09/16/16 Morphine 10 mg/5 ml Liquid [Morphine 10 mg/5 mL Liquid -] 1 mg PO Q4H PRN Nitrofurantoin Monohyd/M-Cryst [Macrobid -] 100 mg PO BID #14 capsule 02/21/17 Family Disease History - Family Disease History Family Disease History: Heart Disease: Father Review of Systems - Review of Systems Genitourinary: reports: Dysuria Vital Signs: Vital Signs Temperature 98.3 F 02/24/17 07:48 Pulse Rate 53 L 02/24/17 07:48 Respiratory Rate 18 02/24/17 07:48 Blood Pressure 144/70 02/24/17 07:48 O2 Sat by Pulse Oximetry (%) 95 02/23/17 21:00 Constitutional: Yes: No Distress, Calm, Thin Neck: Yes: Supple Respiratory: Yes: Regular, Diminished Gastrointestinal: Yes: Normal Bowel Sounds, Soft Cardiovascular: Yes: Tachycardia, Pulse Irregular JVD: No Carotid Bruit: No Heart Sounds: Yes: S1, S2 Edema: No - Other Data Labs, Other Data: CBC, BMP 02/24/17 09:40 02/24/17 09:40 Afib @ 159 with rate-related changes Problem List - Problems (1) Complicated UTI (urinary tract infection) Code(s): N39.0 - URINARY TRACT INFECTION, SITE NOT SPECIFIED (2) Chronic pain Code(s): G89.29 - OTHER CHRONIC PAIN Qualifiers: Chronic pain type: chronic pain syndrome Qualified Code(s): G89.4 - Chronic pain syndrome (3) Paraplegia Code(s): G82.20 - PARAPLEGIA, UNSPECIFIED (4) Rapid atrial fibrillation Code(s): I48.91 - UNSPECIFIED ATRIAL FIBRILLATION Assessment/Plan 1. Rapid atrial fibrillation [id number] 2. Neurogenic bladder with chronic UTI 3. Paraplegia referable to T2 compression 4. Chronic pain syndrome P:1. Attempt rate-control with IV Cardizem and Lopressor with IVF to support BP , hemodynamics will improve with increase in diastolic filling times, denies sxs suggestive of pulm embolism as etioloy for afib, start Lopressor 25 bid as hemodynamics tolerate 2. Check TSH, echocardiogram to assess ventricular, valvular and atrial sizes and fxn, transfer to telemetry 3. Given low risk score, will not benefit from long-term thrombophylaxis from afib standpoint, but certainly warranted for prevention of DVT 4. Complete abx course per C&S 5. Thank you for consultative opportunity
[2017-02-24 12:06] LABS: BASOPHIL 0.5 % (0-2.0); EOSINOPHIL 1.7 % (0-4.5); MCH 28.9 pg (25.7-33.7); MCHC 33.1 g/dl (32.0-35.9); MEAN CELL VOLUME 87.4 fl (80-96); MEAN PLT VOLUME 8.9 fl (7.5-11.1); NEUTROPHILS 77.3 % (42.8-82.8); PLATELET COUNT 300 K/MM3 (134-434); RDW 16.9 % (11.9-15.9); WHITE BLOOD COUNT 11.4 K/mm3 (4.0-10.0)
[2017-02-24 12:33] LABS: ALBUMIN 3.1 g/dl (3.4-5.0); ALK PHOS 152 U/L (45-117); ANION GAP 7 (8-16); BILIRUBIN,TOTAL 0.5 mg/dL (0.2-1.0); CALCIUM 8.5 mg/dL (8.5-10.1); CO2 28 mmol/L (21-32); CREATININE 0.8 mg/dL (0.7-1.3); GLUCOSE,RANDOM 89 mg/dL (74-106); SGOT/AST 22 U/L (15-37); SGPT/ALT 20 U/L (12-78); TOT PROT 6.9 g/dl (6.4-8.2)
[2017-02-24 12:50] LABS: INR 0.91 (0.82-1.09)
[2017-02-24 12:53] LABS: ACTIVATED PTT 34.9 SECONDS (26.9-34.4)
[2017-02-24 12:53] LABS: THYROID STIMULATING HORMONE 0.95 uIU/ml (0.358-3.74)
--- NOTE | 2017-02-24 13:21 | EKG ---
Test Reason : Blood Pressure : / mmHG Vent. Rate : 159 BPM Atrial Rate : 113 BPM P-R Int : 000 ms QRS Dur : 088 ms QT Int : 308 ms P-R-T Axes : 000 072 227 degrees QTc Int : 501 ms ATRIAL FIBRILLATION WITH RAPID VENTRICULAR RESPONSE MARKED ST ABNORMALITY, POSSIBLE INFERIOR SUBENDOCARDIAL INJURY ABNORMAL ECG WHEN COMPARED WITH ECG OF 04-SEP-2016 18:45, ATRIAL FIBRILLATION HAS REPLACED SINUS RHYTHM VENT. RATE HAS INCREASED BY [address] NOW DEPRESSED IN INFERIOR LEADS ST NOW DEPRESSED IN ANTERIOR LEADS Confirmed by GUERITA JOHNSTON, JAQUAN ([id number]) on 02/24/2017 1:21:12 PM Referred By: DELFINA MORALES Confirmed By:JAQUAN DEXTER MD
--- NOTE | 2017-02-24 13:43 | CONSULT ---
Consult Consult Specialty:: urology Referred by:: medicine Reason for Consultation:: neurogenic bladder - History of Present Illness Chief Complaint: neurogenic bladder History of Present Illness: 61 year old male with paraplegia who has been voiding via reflex and Crede for years. He claims that this works well for him.. I last saw him 5 years ago when admitted for a UTI. He is admitted now for a UTI. 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: Other (paraplegia due to accidental fall (T2 spinal fracture)) Renal/: Yes: Neurogenic Bladder, Other (Bladder dysfunction) Infectious Disease: Yes: Other (multiple UTIs Pseudomonas) Musculoskeletal: Yes: Other (Chronic pain) - Past Surgical History Past Surgical History: Yes: Splenectomy - Alcohol/Substance Use Hx Alcohol Use: Yes (OCCASIONALLY) History of Substance Use: reports: Marijuana - Smoking History Smoking history: Never smoked Have you smoked in the past 12 months: No Aproximately how many cigarettes per day: 3 If you are a former smoker, when did you quit?: 1985 - Social History Usual Living Arrangement: With Significant Other 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 History of Recent Travel: No Home Medications - Allergies Allergies/Adverse Reactions: Allergies Allergy/AdvReac Type Severity Reaction Status Date / Time No Known Allergies Allergy Verified 02/21/17 03:57 - Home Medications Home Medications: Ambulatory Orders Diazepam [Valium] 10 mg PO TID PRN #30 tablet MDD 30mg 09/16/16 Morphine 10 mg/5 ml Liquid [Morphine 10 mg/5 mL Liquid -] 1 mg PO Q4H PRN Nitrofurantoin Monohyd/M-Cryst [Macrobid -] 100 mg PO BID #14 capsule 02/21/17 Family Disease History - Family Disease History Family Disease History: Heart Disease: Father Review of Systems - Review of Systems Genitourinary: reports: No Symptoms Physical Exam Vital Signs: Vital Signs Temperature 98.4 F 02/24/17 10:30 Pulse Rate 84 02/24/17 12:00 Respiratory Rate 18 02/24/17 12:00 Blood Pressure 91/56 02/24/17 12:00 O2 Sat by Pulse Oximetry (%) 95 02/23/17 21:00 Gastrointestinal: Yes: Soft Renal/: No: Bladder Distention, CVA Tenderness - Left, CVA Tenderness - Right , Hematuria Labs: CBC, BMP 02/24/17 11:59 02/24/17 11:59 Problem List - Problems (1) UTI (urinary tract infection) Code(s): N39.0 - URINARY TRACT INFECTION, SITE NOT SPECIFIED Qualifiers: Urinary tract infection type: site unspecified Hematuria presence: without hematuria Qualified Code(s): N39.0 - Urinary tract infection, site not specified (2) Neurogenic bladder Assessment/Plan: patient voids via reflex and Crede. he is satisfied with this method. Would treat for UTI and if it does not clear would reintroduce the idea of suprapubic tube or self intermittent catheterization though the paitent is resistant to these options Code(s): N31.9 - NEUROMUSCULAR DYSFUNCTION OF BLADDER, UNSPECIFIED
[2017-02-24] MEDS: HEPARIN INFUSION - 500 ML IVPB SCH (13:50)
[2017-02-24] MEDS: HEPARIN NA (PORCINE) 5,000 UNITS/ML 1ML VIAL SQ SCH (13:58)
[2017-02-24] MEDS ORDERED: HEPARIN NA (PORCINE) 5,000 UNITS/ML 1ML VIAL SQ SCH (14:00)
--- NOTE | 2017-02-24 18:24 | PN ---
Progress Note, Physician History of Present Illness: patient stable but with new afib now - Current Medication List Current Medications: Active Medications Acetaminophen (Tylenol -) 650 mg PO Q6H PRN PRN Reason: FEVER OR PAIN Diazepam (Valium -) 10 mg PO TID PRN PRN Reason: muscle spasms Last Admin: 02/24/17 00:28 Dose: 10 mg Heparin Sodium (Porcine) (Heparin -) 1,000 unit IVPUSH PRN PRN PRN Reason: Heparin Heparin Sodium (Porcine) (Heparin -) 5,000 unit IVPUSH PRN PRN PRN Reason: Heparin Piperacillin Sod/Tazobactam Sod (Zosyn 3.375gm Ivpb (Pre-Docked)) 50 mls @ 100 mls/hr IVPB Q8H-IV ZAIRA PRN Reason: Protocol Last Admin: 02/24/17 18:20 Dose: 100 mls/hr Heparin Sodium/Dextrose (Heparin Infusion -) 500 mls @ 16 mls/hr IVPB TITR ZAIRA ; 800 UNITS/HR PRN Reason: Protocol Last Admin: 02/24/17 13:50 Dose: 16 mls/hr Metoprolol Tartrate (Lopressor -) 25 mg PO BID ZAIRA Morphine Sulfate (Morphine 10 Mg/5 Ml Liquid) 4 mg PO Q4H PRN PRN Reason: PAIN Last Admin: 02/24/17 00:29 Dose: 4 mg - Objective Vital Signs: Vital Signs Temperature 98.4 F 02/24/17 10:30 Pulse Rate 84 02/24/17 12:00 Respiratory Rate 18 02/24/17 12:00 Blood Pressure 91/56 02/24/17 12:00 O2 Sat by Pulse Oximetry (%) 95 02/23/17 21:00 Constitutional: Yes: No Distress, Calm Cardiovascular: Yes: Pulse Irregular Respiratory: Yes: Regular Gastrointestinal: Yes: Normal Bowel Sounds, Soft Genitourinary: Yes: Other Musculoskeletal: Yes: Other Extremities: Yes: Other Neurological: Yes: Alert Psychiatric: Yes: Alert Labs: CBC, BMP 02/24/17 11:59 02/24/17 11:59 INR, PTT INR 0.91 (0.82-1.09) 02/24/17 12:15 Assessment/Plan roblem List - Problems (1) Acute UTI Code(s): N39.0 - URINARY TRACT INFECTION, SITE NOT SPECIFIED (2) Bladder pain Code(s): R39.89 - OTHER SYMPTOMS AND SIGNS INVOLVING THE GENITOURINARY SYSTEM (3) Chronic pain Code(s): G89.29 - OTHER CHRONIC PAIN (4) Paraplegia Code(s): G82.20 - PARAPLEGIA, UNSPECIFIED (5) Constipation Code(s): K59.00 - CONSTIPATION, UNSPECIFIED 6 afib cx result noted plan continue zosyn mgmt as per medicine monitor in tele rest as per primary
--- NOTE | 2017-02-24 21:06 | HOSP ---
Subjective - Review of Symptoms Events since last encounter: Called lab, obtained report of Troponin 3.5. Subjective: Pt denies chest pain, palpitations, lightheadedness, SOB, diff breathing. Physical Examination Vital Signs: Vital Signs Temperature 98.4 F 02/24/17 10:30 Pulse Rate 84 02/24/17 12:00 Respiratory Rate 18 02/24/17 12:00 Blood Pressure 91/56 02/24/17 12:00 O2 Sat by Pulse Oximetry (%) 94 L 02/24/17 09:00 REpeat VS 8pm: BP 154/57 Pulse 86, reg Constitutional: Yes: No Distress Cardiovascular: Yes: Regular Rate and Rhythm, S1, S2. No: Murmur Respiratory: Yes: WNL Gastrointestinal: Yes: WNL ...Rectal Exam: Yes: Hemorrhoids/Internal Labs: CBC, BMP 02/24/17 11:59 02/24/17 11:59 Repeat EC: Sinus bradycardia, no acute ST/T wave changes. Hospitalist Encounter Assessment: Elevated troponin - DW Dr. Thomas, wants pt on tele KITTY, [facility] who accepts pt as tele overflow as there are no tele beds available - cont heparin drip, no new orders - likely due to demand ischemia New onset afib - ? etiology, does not appear septic at this time - now in sinus rhythm, cont metoprolol as ordered. - tele monitoring
[2017-02-25] MEDS: METOPROLOL TARTRATE 25 MG TABLET (FP) PO SCH ×3 (00:02→21:42)
[2017-02-25] MEDS: morphine SULFATE 10 MG/5 ML UNIT-DOSE CUP PO PRN ×6 (00:02→21:43)
[2017-02-25] MEDS: diazePAM 5 MG TABLET PO PRN ×2 (00:03→23:54)
[2017-02-25] MEDS: PIPERACILLIN/TAZOB 3.375 GM 50 ML IVPB SCH ×3 (02:00→17:28)
--- NOTE | 2017-02-25 06:21 | PN ---
Progress Note (short form) - Note Progress Note: Chief Complaint: Events noted, notes reviewed, denies any chest pain or dyspnea , currently in sinus rhythm History of Present Illness: Seen and examined in the ICU. Events noted, notes reviewed, denies any chest pain or dyspnea, currently in sinus rhythm Patient currently is on Heparin which he wants to be D/C, and wants to be D/C home without any further evaluation, ideally patient should be on B-Blockers, +/ - A/C, ASA and additional evaluation recommended including Echocardiography, MPI study vs. LHC& coronary angiography (all options were reviewed in detail with the patient risk, benefits and alternatives) Medications: Current Medications Acetaminophen (Tylenol -) 650 mg PO Q6H PRN PRN Reason: FEVER OR PAIN Diazepam (Valium -) 10 mg PO TID PRN PRN Reason: muscle spasms Last Admin: 02/25/17 00:03 Dose: 10 mg Heparin Sodium (Porcine) (Heparin -) 1,000 unit IVPUSH PRN PRN PRN Reason: Heparin Last Admin: 02/25/17 00:30 Dose: 1,000 unit Heparin Sodium (Porcine) (Heparin -) 5,000 unit IVPUSH PRN PRN PRN Reason: Heparin Piperacillin Sod/Tazobactam Sod (Zosyn 3.375gm Ivpb (Pre-Docked)) 50 mls @ 100 mls/hr IVPB Q8H-IV ZAIRA PRN Reason: Protocol Last Admin: 02/25/17 02:00 Dose: 100 mls/hr Heparin Sodium/Dextrose (Heparin Infusion -) 500 mls @ 16 mls/hr IVPB TITR ZAIRA ; 800 UNITS/HR PRN Reason: Protocol Last Titration: 02/25/17 00:30 Dose: 1,000 units/hr Metoprolol Tartrate (Lopressor -) 25 mg PO BID ZAIRA Last Admin: 02/25/17 00:02 Dose: 25 mg Morphine Sulfate (Morphine 10 Mg/5 Ml Liquid) 4 mg PO Q4H PRN PRN Reason: PAIN Last Admin: 02/25/17 05:15 Dose: 4 mg Review of Systems - Review of Systems Constitutional: no symptoms reported Respiratory: denies: Cough or Sputum Production Cardiovascular: As noted above Gastrointestinal: denies Nausea, Vomiting, Diarrhea, Constipation or Abdominal Pain Genitourinary: No symptoms reported Vital Signs: Last Vital Signs Temp Pulse Resp BP Pulse Ox 98.2 F 57 L 18 164/71 98 02/25/17 02:00 02/25/17 04:07 02/25/17 04:07 02/25/17 04:07 02/24/17 23:00 Constitutional: No Distress, Calm, Thin Neck: Supple Negative JVD Respiratory: Diminished at the Bases Cardiovascular: S1 S2 Regular Rate and Rhythm No Murmurs Gastrointestinal: Soft Benign Normal Bowel Sounds Ext: No Edema Labs: Troponin, BNP 02/24/17 02/24/17 02/24/17 11:59 17:30 23:00 Troponin I 0.20 H 3.50 H* D 2.61 H* CBC, BMP 02/24/17 11:59 02/24/17 11:59 Hepatic Panel Total Bilirubin 0.5 mg/dL (0.2-1.0) D 02/24/17 11:59 AST 22 U/L (15-37) 02/24/17 11:59 ALT 20 U/L (12-78) 02/24/17 11:59 Alkaline Phosphatase 152 U/L (45-117) H 02/24/17 11:59 Albumin 3.1 g/dl (3.4-5.0) L 02/24/17 11:59 Assessment/Plan ASSESSMENT: 1. Paroxysmal atrial fibrillation, currently in sinus rhythm [id number] score of 0-1 2. CAD with evidence of demand ischemic injury 3. Neurogenic bladder with chronic UTI 4. Paraplegia referable to T2 compression 5. Chronic pain syndrome PLAN: 1. Continue Lopressor 2. Ideally ASA would be sufficient considering the above noted [id number] score of 0-1, but await echocardiography to evaluate LV function, then decision regarding A/C 3. Echocardiography as outlined above 4. Further cardiovascular evaluation as recommended above including MPI study vs. LHC& coronary angiography As outlined patient may sign out against medical advise, recommend outpatient F/ U Kirill Nguyen MD
--- NOTE | 2017-02-25 07:18 | PN ---
Physical Exam: SUBJECTIVE: Patient seen and examined. knows he has chronic UTI's. denies palpitations, chest pain, fevers, cough, lightheadedness, sob. OBJECTIVE: Vital Signs Period Temp Pulse Resp BP Sys/Roche Pulse Ox Last 24 Hr 98.2 F-99 F 52-120 18-18 64-165/32-79 94-98 GENERAL: The patient is awake, alert, and fully oriented, in no acute distress. HEAD: Normal with no signs of trauma. EYES: PERRL, extraocular movements intact, sclera anicteric, conjunctiva clear. No ptosis. ENT: oropharynx clear without exudates, moist mucous membranes. NECK: Trachea midline, full range of motion, supple. LUNGS: Breath sounds equal, clear to auscultation bilaterally, no wheezes, no crackles, no accessory muscle use. quiet at bases HEART: Regular rate and rhythm, S1, S2 without murmur, rub or gallop. ABDOMEN: Soft, nontender, nondistended, normoactive bowel sounds EXTREMITIES: 2+ radial pulses, 1+ dorsalis pedis pulses, warm, well-perfused, no edema. freely moving arms. muscular atrophy b/l lower legs. NEUROLOGICAL: Normal speech, facial symmetry. paraplegic Laboratory Results - last 24 hr 02/24/17 02/24/17 02/24/17 09:40 09:40 11:59 WBC 10.3 H RBC 4.61 Hgb 13.6 Hct 40.4 MCV 87.6 MCHC 33.7 RDW 16.5 H Plt Count 268 D MPV 8.7 Neutrophils % 74.1 Lymphocytes % 13.4 D Monocytes % 9.6 Eosinophils % 2.0 Basophils % 0.9 INR PTT (Actin FS) Sodium 140 139 Potassium 3.5 3.8 Chloride 102 104 Carbon Dioxide 27 28 Anion Gap 11 7 L BUN 10 13 D Creatinine 0.6 L 0.8 D Creat Clearance w eGFR > 60 > 60 Random Glucose 107 H D 89 Lactic Acid Calcium 8.8 8.5 Magnesium 2.0 Total Bilirubin 0.8 D 0.5 D AST 19 22 ALT 18 20 Alkaline Phosphatase 150 H 152 H Troponin I 0.20 H Total Protein 6.8 6.9 Albumin 3.1 L 3.1 L TSH 0.95 02/24/17 02/24/17 02/24/17 11:59 12:00 12:15 WBC 11.4 H RBC 4.83 Hgb 14.0 Hct 42.2 MCV 87.4 MCHC 33.1 RDW 16.9 H Plt Count 300 MPV 8.9 Neutrophils % 77.3 Lymphocytes % 9.1 D Monocytes % 11.4 H Eosinophils % 1.7 Basophils % 0.5 INR 0.91 PTT (Actin FS) 34.9 H Sodium Potassium Chloride Carbon Dioxide Anion Gap BUN Creatinine Creat Clearance w eGFR Random Glucose Lactic Acid Calcium Magnesium Total Bilirubin AST ALT Alkaline Phosphatase Troponin I Total Protein Albumin TSH Cancelled 02/24/17 02/24/17 02/24/17 17:30 17:30 19:30 WBC RBC Hgb Hct MCV MCHC RDW Plt Count MPV Neutrophils % Lymphocytes % Monocytes % Eosinophils % Basophils % INR PTT (Actin FS) 44.6 H Sodium Potassium Chloride Carbon Dioxide Anion Gap BUN Creatinine Creat Clearance w eGFR Random Glucose Lactic Acid 0.7 Calcium Magnesium Total Bilirubin AST ALT Alkaline Phosphatase Troponin I 3.50 H* D Total Protein Albumin TSH 02/24/17 02/24/17 23:00 23:00 WBC RBC Hgb Hct MCV MCHC RDW Plt Count MPV Neutrophils % Lymphocytes % Monocytes % Eosinophils % Basophils % INR PTT (Actin FS) 42.5 H Sodium Potassium Chloride Carbon Dioxide Anion Gap BUN Creatinine Creat Clearance w eGFR Random Glucose Lactic Acid Calcium Magnesium Total Bilirubin AST ALT Alkaline Phosphatase Troponin I 2.61 H* Total Protein Albumin TSH Active Medications Generic Name Dose Route Start Last Admin Trade Name Freq PRN Reason Stop Dose Admin Acetaminophen 650 mg 02/22/17 17:58 Tylenol - PO Q6H PRN FEVER OR PAIN Aspirin 81 mg 02/25/17 10:00 Ecotrin - PO DAILY ZAIRA Diazepam 10 mg 02/22/17 17:56 02/25/17 00:03 Valium - PO 10 mg TID PRN Administration muscle spasms Heparin Sodium (Porcine) 1,000 unit 02/24/17 11:07 02/25/17 00:30 Heparin - IVPUSH 1,000 unit PRN PRN Administration Heparin Heparin Sodium (Porcine) 5,000 unit 02/24/17 11:07 Heparin - IVPUSH PRN PRN Heparin Piperacillin Sod/Tazobactam Sod 50 mls @ 100 mls/hr 02/23/17 16:00 02/25/17 02: 00 Zosyn 3.375gm Ivpb (Pre-Docked) IVPB 100 mls/hr Q8H-IV ZAIRA Administration Protocol Heparin Sodium/Dextrose 500 mls @ 16 mls/hr 02/24/17 11:15 02/25/17 00:30 Heparin Infusion - IVPB 1,000 units/hr TITR ZAIRA Titration Protocol 800 UNITS/HR Metoprolol Tartrate 25 mg 02/24/17 22:00 02/25/17 00:02 Lopressor - PO 25 mg BID ZAIRA Administration Morphine Sulfate 4 mg 02/23/17 17:53 02/25/17 05:15 Morphine 10 Mg/5 Ml Liquid PO 4 mg Q4H PRN Administration PAIN ASSESSMENT/PLAN: 61 yr old man with paraplegia secondary to T2 compression fracture, neurogenic bladder, recurrent UTI's, EtOH abuse, marijuana use, bilateral femur fractures who presented to the ED with worsening abdominal pain admitted for acute UTI, had one episode of paraxosymal Afib and hypotension. - BP and heart rate improved since transferred to ICU, troponin trending down Cardiovascular Paroxysmal atrial fibrillation, currently in sinus rhythm and rate controlled heparin drip for afib, cardiology note appreciated, given low [id number] score 0 -1 and normal echo, further anticoagulation to be discussed pt more interested in staying, will f/u with cardiology regarding further cardiac testing lopressor 25mg po BID ASA 81mg po daily consult:dr. yoan ORTEGA sepsis secondary to UTI - pseudomonas Zosyn IVPB 3.375gm q8hr - day 2 bld cx pending leucocytosis improved consult: dr. saundra HENRY - f/u with urologist as outpatient, seen by urologist, no intervention at this time, patient is aware of intermittent catheterization and suprapubic tube, patient no interested in either at this time consult: dr. meyer Musculoskeletal paraplegia pain control with : valium 10mg po TID prn morphine 4mg q4hr prn pain DVT: heparin drip Diet: regular diet Visit type - Emergency Visit Emergency Visit: No - New Patient This patient is new to me today: Yes Date on this admission: 02/25/17 - Critical Care Critical Care patient: Yes Total Critical Care Time (in minutes): 36 Critical Care Statement: The care of this patient involved high complexity decision making to prevent further life threatening deterioration of the patient 's condition and/or to evalute & treat vital organ system(s) failure or risk of failure.
--- NOTE | 2017-02-25 07:49 | PN ---
Physical Exam: SUBJECTIVE: Patient seen and examined in the ICU Overnights notes reviewed, pt was requesting to leave AMA overnight but now in agreement to stay. OBJECTIVE: Troponins 0.20>3.50>2.61 Patient denies chest pain or shortness of breath, no dyspnea noted on exam, tolerating room air heart rate noted to be now in SR Repeat blood and urine cultures pending EKG atrial fibrillation with RVR @ 159, on heparin drip, ASA 324mg x 1 yesterday, now ASA 81mg daily CTA to rule out PE Vital Signs Period Temp Pulse Resp BP Sys/Roche Pulse Ox Last 24 Hr 98.2 F-99 F 52-120 18-18 64-165/32-79 94-98 GENERAL: The patient is awake, alert, and fully oriented, in no acute distress. HEAD: Normal with no signs of trauma. EYES: PERRL, extraocular movements intact, sclera anicteric, conjunctiva clear. No ptosis. ENT: Ears normal, nares patent, oropharynx clear without exudates, moist mucous membranes. NECK: Trachea midline, full range of motion, supple. LUNGS: Breath sounds equal, clear to auscultation bilaterally HEART: Irregular heart rate 90s -- ekg ordered ABDOMEN: Soft, nontender, nondistended, normoactive bowel sounds, no guarding, no rebound, no hepatosplenomegaly, no masses. EXTREMITIES: paraplegia, bed bound NEUROLOGICAL: Normal speech PSYCH: Normal mood, normal affect. Laboratory Results - last 24 hr 02/24/17 02/24/17 02/24/17 09:40 09:40 11:59 WBC 10.3 H RBC 4.61 Hgb 13.6 Hct 40.4 MCV 87.6 MCHC 33.7 RDW 16.5 H Plt Count 268 D MPV 8.7 Neutrophils % 74.1 Lymphocytes % 13.4 D Monocytes % 9.6 Eosinophils % 2.0 Basophils % 0.9 INR PTT (Actin FS) Sodium 140 139 Potassium 3.5 3.8 Chloride 102 104 Carbon Dioxide 27 28 Anion Gap 11 7 L BUN 10 13 D Creatinine 0.6 L 0.8 D Creat Clearance w eGFR > 60 > 60 Random Glucose 107 H D 89 Lactic Acid Calcium 8.8 8.5 Magnesium 2.0 Total Bilirubin 0.8 D 0.5 D AST 19 22 ALT 18 20 Alkaline Phosphatase 150 H 152 H Troponin I 0.20 H Total Protein 6.8 6.9 Albumin 3.1 L 3.1 L TSH 0.95 02/24/17 02/24/17 02/24/17 11:59 12:00 12:15 WBC 11.4 H RBC 4.83 Hgb 14.0 Hct 42.2 MCV 87.4 MCHC 33.1 RDW 16.9 H Plt Count 300 MPV 8.9 Neutrophils % 77.3 Lymphocytes % 9.1 D Monocytes % 11.4 H Eosinophils % 1.7 Basophils % 0.5 INR 0.91 PTT (Actin FS) 34.9 H Sodium Potassium Chloride Carbon Dioxide Anion Gap BUN Creatinine Creat Clearance w eGFR Random Glucose Lactic Acid Calcium Magnesium Total Bilirubin AST ALT Alkaline Phosphatase Troponin I Total Protein Albumin TSH Cancelled 02/24/17 02/24/17 02/24/17 17:30 17:30 19:30 WBC RBC Hgb Hct MCV MCHC RDW Plt Count MPV Neutrophils % Lymphocytes % Monocytes % Eosinophils % Basophils % INR PTT (Actin FS) 44.6 H Sodium Potassium Chloride Carbon Dioxide Anion Gap BUN Creatinine Creat Clearance w eGFR Random Glucose Lactic Acid 0.7 Calcium Magnesium Total Bilirubin AST ALT Alkaline Phosphatase Troponin I 3.50 H* D Total Protein Albumin TSH 02/24/17 02/24/17 23:00 23:00 WBC RBC Hgb Hct MCV MCHC RDW Plt Count MPV Neutrophils % Lymphocytes % Monocytes % Eosinophils % Basophils % INR PTT (Actin FS) 42.5 H Sodium Potassium Chloride Carbon Dioxide Anion Gap BUN Creatinine Creat Clearance w eGFR Random Glucose Lactic Acid Calcium Magnesium Total Bilirubin AST ALT Alkaline Phosphatase Troponin I 2.61 H* Total Protein Albumin TSH Active Medications Generic Name Dose Route Start Last Admin Trade Name Freq PRN Reason Stop Dose Admin Acetaminophen 650 mg 02/22/17 17:58 Tylenol - PO Q6H PRN FEVER OR PAIN Aspirin 81 mg 02/25/17 10:00 Ecotrin - PO DAILY ZAIRA Diazepam 10 mg 02/22/17 17:56 02/25/17 00:03 Valium - PO 10 mg TID PRN Administration muscle spasms Heparin Sodium (Porcine) 1,000 unit 02/24/17 11:07 02/25/17 00:30 Heparin - IVPUSH 1,000 unit PRN PRN Administration Heparin Heparin Sodium (Porcine) 5,000 unit 02/24/17 11:07 Heparin - IVPUSH PRN PRN Heparin Piperacillin Sod/Tazobactam Sod 50 mls @ 100 mls/hr 02/23/17 16:00 02/25/17 02: 00 Zosyn 3.375gm Ivpb (Pre-Docked) IVPB 100 mls/hr Q8H-IV ZAIRA Administration Protocol Heparin Sodium/Dextrose 500 mls @ 16 mls/hr 02/24/17 11:15 02/25/17 00:30 Heparin Infusion - IVPB 1,000 units/hr TITR ZAIRA Titration Protocol 800 UNITS/HR Metoprolol Tartrate 25 mg 02/24/17 22:00 02/25/17 00:02 Lopressor - PO 25 mg BID ZAIRA Administration Morphine Sulfate 4 mg 02/23/17 17:53 02/25/17 05:15 Morphine 10 Mg/5 Ml Liquid PO 4 mg Q4H PRN Administration PAIN ASSESSMENT/PLAN: The patient is a 61 year old male with a significant past medical history of paraplegia below T2, COPD and recurrent UTIs who presents to the ED on 2016 with acute UTI. Yesterday I was called by primary RN to patient's bedside stat for hypotension and patient stating that he feels like he is "burning" or feeling "feverish". On exam I noted his heart rate to be irregular. He denied any shortness of breath or chest pain. EKG 02/24/2017: EKG with atrial fib. with RVR @159, marked ST abnormality, possible inferior subcardial injury when compared with EKG of 08/2016, atrial fib has replaced sinus rhythm. Cardiology: Atrial Fibrillation with RVR - new onset Assessment/Plan: EKG confirms atrial fib with RVR ASA 325mg x 1 given, now on ASA 81mg daily On heparin drip initiated on 02/24/17 Cardizem 10mg x 1 for rate control given by science writer yesterday, now on Lopressor 25mg BID for rate control +Troponins 0.20>3.50>2.61, will continue to trend to document peak Hypotension - resolved Assessment/Plan: Hypotension yesterday thought to be from sepsis but lactic acids are within normal limits Likely secondary to new onset atrial fibrillation Vitals q4, monitor on tele in the ICU ID: Acute UTI Assessment/Plan: Repeat blood and urine cultures pending Repeat lactic acid within normal limits On Zosyn q8 Monitor blood cultures, vitals ID consulted and following Urology following Muscular/Skeletal: Paraplegia - chronic Assessment/Plan: Monitor skin integrity, turn and position q 2, high risk for skin breakdown Pt encouraged to shift his weight, will benefit from a bed trapeze. Monitor closely Pain Management - chronic Assessment/Plan: Continue morphine and Valium F.E.N. Fluids: Tolerating PO, d/c IVF Electrolytes: monitor with bmp Can continue regular diet Prophylaxis: DVT: heparin drip GI: Protonix Disposition. Continues to require inpatient hospitalization. Full Code. Coverage for Dr. Singer. Visit type - Emergency Visit Emergency Visit: Yes ED Registration Date: 02/22/17 Care time: The patient presented to the Emergency Department on the above date and was hospitalized for further evaluation of their emergent condition. - New Patient This patient is new to me today: Yes Date on this admission: 02/25/17 - Critical Care Critical Care patient: Yes Total Critical Care Time (in minutes): 45 Critical Care Statement: The care of this patient involved high complexity decision making to prevent further life threatening deterioration of the patient 's condition and/or to evalute & treat vital organ system(s) failure or risk of failure.
[2017-02-25 09:02] LABS: EOSINOPHIL 1.9 % (0-4.5); MCH 29.1 pg (25.7-33.7); MCHC 33.1 g/dl (32.0-35.9); MEAN CELL VOLUME 87.8 fl (80-96); MEAN PLT VOLUME 9.2 fl (7.5-11.1); NEUTROPHILS 76.2 % (42.8-82.8); PLATELET COUNT 286 K/MM3 (134-434); RDW 16.8 % (11.9-15.9); WHITE BLOOD COUNT 12.9 K/mm3 (4.0-10.0)
[2017-02-25 09:27] LABS: ALBUMIN 3.3 g/dl (3.4-5.0); ALK PHOS 150 U/L (45-117); ANION GAP 8 (8-16); BILIRUBIN,TOTAL 0.9 mg/dL (0.2-1.0); CALCIUM 8.6 mg/dL (8.5-10.1); CO2 30 mmol/L (21-32); CREATININE 0.7 mg/dL (0.7-1.3); GLUCOSE,RANDOM 92 mg/dL (74-106); SGOT/AST 29 U/L (15-37); SGPT/ALT 18 U/L (12-78); TOT PROT 7.4 g/dl (6.4-8.2)
[2017-02-25 09:51] LABS: TROPONIN I 2.12 ng/ml (0.00-0.05)
[2017-02-25] MEDS: PANTOPRAZOLE 40 MG TABLET (FP) PO SCH (10:05)
[2017-02-25] MEDS: ASPIRIN COATED 81 MG TABLET.EC PO SCH (10:05)
[2017-02-25] MEDS ORDERED: POTASSIUM CHLORIDE ORAL LIQUID 20 MEQ/15 ML PO ONE (10:18)
[2017-02-25] MEDS ORDERED: POTASSIUM CHLORIDE ORAL LIQUID 20 MEQ/15 ML ONE (12:26)
[2017-02-25] MEDS: HEPARIN INFUSION - 500 ML IVPB SCH (12:35)
--- NOTE | 2017-02-25 13:00 | PN ---
Teaching Attending Note Name of Resident: Vibha June ATTENDING PHYSICIAN STATEMENT I saw and evaluated the patient. I reviewed the resident's note and discussed the case with the resident. I agree with the resident's findings and plan as documented. SUBJECTIVE: Patient seen and examined in the ICU. Awake and alert. Denies CP or SOB. Noted troponin levels are down trending. ECHO was just performed. Intake & Output 02/22/17 02/23/17 02/24/17 02/25/17 23:59 23:59 23:59 23:59 Intake Total 840 1675 210 Output Total 1000 Balance 840 675 210 Weight 120 lb 120 lb Last Vital Signs Temp Pulse Resp BP Pulse Ox 98 F 64 18 152/69 98 02/25/17 10:00 02/25/17 12:49 02/25/17 12:49 02/25/17 12:49 02/24/17 23:00 Active Medications Acetaminophen (Tylenol -) 650 mg PO Q6H PRN PRN Reason: FEVER OR PAIN Aspirin (Ecotrin -) 81 mg PO DAILY [facility] Last Admin: 02/25/17 10:05 Dose: 81 mg Diazepam (Valium -) 10 mg PO TID PRN PRN Reason: muscle spasms Last Admin: 02/25/17 00:03 Dose: 10 mg Heparin Sodium (Porcine) (Heparin -) 1,000 unit IVPUSH PRN PRN PRN Reason: Heparin Last Admin: 02/25/17 00:30 Dose: 1,000 unit Heparin Sodium (Porcine) (Heparin -) 5,000 unit IVPUSH PRN PRN PRN Reason: Heparin Piperacillin Sod/Tazobactam Sod (Zosyn 3.375gm Ivpb (Pre-Docked)) 50 mls @ 100 mls/hr IVPB Q8H-IV [facility] PRN Reason: Protocol Last Admin: 02/25/17 10:03 Dose: 100 mls/hr Heparin Sodium/Dextrose (Heparin Infusion -) 500 mls @ 16 mls/hr IVPB TITR [facility] ; 800 UNITS/HR PRN Reason: Protocol Last Admin: 02/25/17 12:35 Dose: 20 mls/hr Metoprolol Tartrate (Lopressor -) 25 mg PO BID [facility] Last Admin: 02/25/17 10:02 Dose: 25 mg Morphine Sulfate (Morphine 10 Mg/5 Ml Liquid) 4 mg PO Q4H PRN PRN Reason: PAIN Last Admin: 02/25/17 12:34 Dose: 4 mg Pantoprazole Sodium (Protonix -) 40 mg PO DAILY [facility] Last Admin: 02/25/17 10:05 Dose: 40 mg Potassium Chloride (K-Dur -) 20 meq PO ONCE ONE Stop: 02/25/17 14:01 Constitutional: No Distress, Thin Neck: Supple (-) JVD Respiratory: Diminished at the Bases Cardiovascular: S1 S2 RRR, (-) murmurs Gastrointestinal: Soft Benign Normal Bowel Sounds Ext: No Edema, contracted Labs: Laboratory Results - last 24 hr 02/24/17 02/24/17 02/24/17 11:59 12:15 17:30 WBC RBC Hgb Hct MCV MCHC RDW Plt Count MPV Neutrophils % Lymphocytes % Monocytes % Eosinophils % Basophils % INR 0.91 PTT (Actin FS) 34.9 H Sodium 139 Potassium 3.8 Chloride 104 Carbon Dioxide 28 Anion Gap 7 L BUN 13 D Creatinine 0.8 D Creat Clearance w eGFR > 60 Random Glucose 89 Lactic Acid Calcium 8.5 Magnesium 2.0 Total Bilirubin 0.5 D AST 22 ALT 20 Alkaline Phosphatase 152 H Creatine Kinase Creatine Kinase Index CK-MB (CK-2) CK-MB (CK-2) Rel Index Troponin I 0.20 H 3.50 H* D Total Protein 6.9 Albumin 3.1 L TSH 0.95 02/24/17 02/24/17 02/24/17 17:30 19:30 23:00 WBC RBC Hgb Hct MCV MCHC RDW Plt Count MPV Neutrophils % Lymphocytes % Monocytes % Eosinophils % Basophils % INR PTT (Actin FS) 44.6 H 42.5 H Sodium Potassium Chloride Carbon Dioxide Anion Gap BUN Creatinine Creat Clearance w eGFR Random Glucose Lactic Acid 0.7 Calcium Magnesium Total Bilirubin AST ALT Alkaline Phosphatase Creatine Kinase Creatine Kinase Index CK-MB (CK-2) CK-MB (CK-2) Rel Index Troponin I Total Protein Albumin TSH 02/24/17 02/25/17 02/25/17 23:00 08:48 08:48 WBC 12.9 H RBC 4.77 Hgb 13.8 Hct 41.8 MCV 87.8 MCHC 33.1 RDW 16.8 H Plt Count 286 MPV 9.2 Neutrophils % 76.2 Lymphocytes % 12.8 D Monocytes % 8.1 Eosinophils % 1.9 Basophils % 1.0 INR PTT (Actin FS) Sodium 141 Potassium 3.0 L D Chloride 103 Carbon Dioxide 30 Anion Gap 8 BUN 9 D Creatinine 0.7 Creat Clearance w eGFR > 60 Random Glucose 92 Lactic Acid Calcium 8.6 Magnesium Total Bilirubin 0.9 D AST 29 D ALT 18 Alkaline Phosphatase 150 H Creatine Kinase Creatine Kinase Index CK-MB (CK-2) CK-MB (CK-2) Rel Index Troponin I 2.61 H* Total Protein 7.4 Albumin 3.3 L TSH 02/25/17 02/25/17 02/25/17 08:48 08:48 08:48 WBC RBC Hgb Hct MCV MCHC RDW Plt Count MPV Neutrophils % Lymphocytes % Monocytes % Eosinophils % Basophils % INR PTT (Actin FS) 64.7 H D Sodium Potassium Chloride Carbon Dioxide Anion Gap BUN Creatinine Creat Clearance w eGFR Random Glucose Lactic Acid Calcium Magnesium Total Bilirubin AST ALT Alkaline Phosphatase Creatine Kinase 200 Creatine Kinase Index 2.6 CK-MB (CK-2) 5.232 H CK-MB (CK-2) Rel Index Cancelled Troponin I 2.12 H* Total Protein Albumin TSH Assessment/Plan ASSESSMENT: AMI : demand ischemia Paroxysmal atrial fibrillation -> NSR CAD Neurogenic bladder with chronic UTI Paraplegia due to Fall and T2 compression Chronic pain syndrome PLAN: Check ECHO Lopressor O2 as needed ASA Further cardiac testing per Cardiology Dr Menjviar
[2017-02-25] MEDS ORDERED: POTASSIUM CHLORIDE TABS 20 MEQ TABLET.ER (FP) PO ONE (14:00)
--- NOTE | 2017-02-25 14:40 | EKG ---
Test Reason : Blood Pressure : / mmHG Vent. Rate : 053 BPM Atrial Rate : 053 BPM P-R Int : 126 ms QRS Dur : 070 ms QT Int : 448 ms P-R-T Axes : 064 071 082 degrees QTc Int : 420 ms SINUS BRADYCARDIA OTHERWISE NORMAL ECG WHEN COMPARED WITH ECG OF 24-FEB-2017 11:03, SINUS RHYTHM HAS REPLACED ATRIAL FIBRILLATION VENT. RATE HAS DECREASED BY 106 BPM Confirmed by JAQUAN DEXTER MD ([id number]) on 02/25/2017 2:40:02 PM Referred By: SURYA Confirmed By:JAQUAN DEXTER MD
--- NOTE | 2017-02-25 20:06 | PN ---
Progress Note, Physician History of Present Illness: events noted patient went into new onset afib transferred to icu troponins increased - Current Medication List Current Medications: Active Medications Acetaminophen (Tylenol -) 650 mg PO Q6H PRN PRN Reason: FEVER OR PAIN Aspirin (Ecotrin -) 81 mg PO DAILY [facility] Last Admin: 02/25/17 10:05 Dose: 81 mg Diazepam (Valium -) 10 mg PO TID PRN PRN Reason: muscle spasms Last Admin: 02/25/17 00:03 Dose: 10 mg Heparin Sodium (Porcine) (Heparin -) 1,000 unit IVPUSH PRN PRN PRN Reason: Heparin Last Admin: 02/25/17 00:30 Dose: 1,000 unit Heparin Sodium (Porcine) (Heparin -) 5,000 unit IVPUSH PRN PRN PRN Reason: Heparin Piperacillin Sod/Tazobactam Sod (Zosyn 3.375gm Ivpb (Pre-Docked)) 50 mls @ 100 mls/hr IVPB Q8H-IV [facility] PRN Reason: Protocol Last Admin: 02/25/17 17:28 Dose: 100 mls/hr Heparin Sodium/Dextrose (Heparin Infusion -) 500 mls @ 16 mls/hr IVPB TITR [facility] ; 800 UNITS/HR PRN Reason: Protocol Last Admin: 02/25/17 12:35 Dose: 20 mls/hr Metoprolol Tartrate (Lopressor -) 25 mg PO BID [facility] Last Admin: 02/25/17 10:02 Dose: 25 mg Morphine Sulfate (Morphine 10 Mg/5 Ml Liquid) 4 mg PO Q4H PRN PRN Reason: PAIN Last Admin: 02/25/17 17:26 Dose: 4 mg Pantoprazole Sodium (Protonix -) 40 mg PO DAILY [facility] Last Admin: 02/25/17 10:05 Dose: 40 mg Polyethylene Glycol (Miralax (For Daily Use) -) 17 gm PO ONCE ONE Stop: 02/26/17 06:01 - Objective Vital Signs: Vital Signs Temperature 98.4 F 02/25/17 14:00 Pulse Rate 66 02/25/17 14:00 Respiratory Rate 18 02/25/17 14:00 Blood Pressure 164/72 02/25/17 14:00 O2 Sat by Pulse Oximetry (%) 98 02/25/17 09:00 Constitutional: Yes: No Distress, Calm Cardiovascular: Yes: Pulse Irregular, Other Respiratory: Yes: Regular Gastrointestinal: Yes: Normal Bowel Sounds, Soft Genitourinary: Yes: Other Musculoskeletal: Yes: Other Extremities: Yes: Other Neurological: Yes: Alert, Oriented Psychiatric: Yes: Alert, Oriented Labs: CBC, BMP 02/25/17 08:48 02/25/17 08:48 INR, PTT INR 0.91 (0.82-1.09) 02/24/17 12:15 Assessment/Plan roblem List - Problems (1) Acute UTI Code(s): N39.0 - URINARY TRACT INFECTION, SITE NOT SPECIFIED (2) Bladder pain Code(s): R39.89 - OTHER SYMPTOMS AND SIGNS INVOLVING THE GENITOURINARY SYSTEM (3) Chronic pain Code(s): G89.29 - OTHER CHRONIC PAIN (4) Paraplegia Code(s): G82.20 - PARAPLEGIA, UNSPECIFIED (5) Constipation Code(s): K59.00 - CONSTIPATION, UNSPECIFIED 6 afib cx result noted plan continue zosyn in icu cardio on case rest as per icu close monitoring blood cx negative cc time 40 min
[2017-02-26] MEDS: morphine SULFATE 10 MG/5 ML UNIT-DOSE CUP PO PRN ×3 (02:29→14:34)
[2017-02-26] MEDS: PIPERACILLIN/TAZOB 3.375 GM 50 ML IVPB SCH ×3 (02:54→20:01)
[2017-02-26] MEDS ORDERED: POLYETHYLENE GLYCOL 3350 119 GM BTL PO ONE (06:00)
[2017-02-26 06:31] LABS: BASOPHIL 1.3 % (0-2.0); EOSINOPHIL 3.2 % (0-4.5); MCH 29.2 pg (25.7-33.7); MCHC 33.2 g/dl (32.0-35.9); NEUTROPHILS 67.8 % (42.8-82.8)
[2017-02-26 06:58] LABS: ALBUMIN 2.9 g/dl (3.4-5.0); ANION GAP 8 (8-16); CALCIUM 8.1 mg/dL (8.5-10.1); CO2 28 mmol/L (21-32); GLUCOSE,RANDOM 76 mg/dL (74-106); MAGNESIUM 1.8 mg/dL (1.8-2.4); SGPT/ALT 18 U/L (12-78)
[2017-02-26 07:01] LABS: ALK PHOS 119 U/L (45-117); BILIRUBIN,TOTAL 0.8 mg/dL (0.2-1.0); CREATININE 0.6 mg/dL (0.7-1.3); SGOT/AST 24 U/L (15-37); TOT PROT 6.6 g/dl (6.4-8.2)
--- NOTE | 2017-02-26 07:49 | PN ---
Physical Exam: SUBJECTIVE: Patient seen and examined passed "alot" of gas this morning after miralax, abdominal pain decreased. wants to wait for bowel movement to pass before trying any other measures. OBJECTIVE: Vital Signs Period Temp Pulse Resp BP Sys/Roche Pulse Ox Last 24 Hr 97.4 F-98.4 F 52-66 16-20 114-172/58-86 98-98 GENERAL: The patient is in no acute distress. EYES:extraocular movements intact, sclera anicteric, conjunctiva clear ENT: oropharynx clear without exudates, moist mucous membranes. LUNGS: Breath sounds equal, clear to auscultation bilaterally, no wheezes, no crackles, no accessory muscle use. quiet at bases HEART: Regular rate and rhythm, S1, S2 without murmur, rub or gallop. ABDOMEN: Soft, nontender, nondistended, normoactive bowel sounds EXTREMITIES: 2+ radial pulses, 1+ dorsalis pedis pulses, warm, well-perfused, no edema. freely moving arms. muscular atrophy b/l lower legs. NEUROLOGICAL: Normal speech, facial symmetry. paraplegic Laboratory Results - last 24 hr 02/25/17 02/25/17 02/25/17 08:48 08:48 08:48 WBC 12.9 H RBC 4.77 Hgb 13.8 Hct 41.8 MCV 87.8 MCHC 33.1 RDW 16.8 H Plt Count 286 MPV 9.2 Neutrophils % 76.2 Lymphocytes % 12.8 D Monocytes % 8.1 Eosinophils % 1.9 Basophils % 1.0 PTT (Actin FS) 64.7 H D Sodium 141 Potassium 3.0 L D Chloride 103 Carbon Dioxide 30 Anion Gap 8 BUN 9 D Creatinine 0.7 Creat Clearance w eGFR > 60 Random Glucose 92 Calcium 8.6 Magnesium Total Bilirubin 0.9 D AST 29 D ALT 18 Alkaline Phosphatase 150 H Creatine Kinase Creatine Kinase Index CK-MB (CK-2) CK-MB (CK-2) Rel Index Troponin I Total Protein 7.4 Albumin 3.3 L 02/25/17 02/25/17 02/25/17 08:48 08:48 15:00 WBC RBC Hgb Hct MCV MCHC RDW Plt Count MPV Neutrophils % Lymphocytes % Monocytes % Eosinophils % Basophils % PTT (Actin FS) Sodium Potassium Chloride Carbon Dioxide Anion Gap BUN Creatinine Creat Clearance w eGFR Random Glucose Calcium Magnesium Total Bilirubin AST ALT Alkaline Phosphatase Creatine Kinase 200 Creatine Kinase Index 2.6 CK-MB (CK-2) 5.232 H CK-MB (CK-2) Rel Index Cancelled Troponin I 2.12 H* 1.38 H* D Total Protein Albumin 02/26/17 02/26/17 02/26/17 05:20 05:20 05:20 WBC 11.0 H RBC 4.43 Hgb 12.9 Hct 39.0 MCV 88.0 MCHC 33.2 RDW 17.0 H Plt Count MPV Neutrophils % 67.8 Lymphocytes % 14.6 Monocytes % 13.1 H Eosinophils % 3.2 Basophils % 1.3 PTT (Actin FS) 67.0 H Sodium 140 Potassium 3.6 Chloride 104 Carbon Dioxide 28 Anion Gap 8 BUN 7 D Creatinine 0.6 L Creat Clearance w eGFR > 60 Random Glucose 76 Calcium 8.1 L Magnesium 1.8 Total Bilirubin 0.8 AST 24 ALT 18 Alkaline Phosphatase 119 H D Creatine Kinase Creatine Kinase Index CK-MB (CK-2) CK-MB (CK-2) Rel Index Troponin I Total Protein 6.6 Albumin 2.9 L Active Medications Generic Name Dose Route Start Last Admin Trade Name Freq PRN Reason Stop Dose Admin Acetaminophen 650 mg 02/22/17 17:58 Tylenol - PO Q6H PRN FEVER OR PAIN Aspirin 81 mg 02/25/17 10:00 02/25/17 10:05 Ecotrin - PO 81 mg DAILY [facility] Administration Diazepam 10 mg 02/22/17 17:56 02/25/17 23:54 Valium - PO 10 mg TID PRN Administration muscle spasms Heparin Sodium (Porcine) 1,000 unit 02/24/17 11:07 02/25/17 00:30 Heparin - IVPUSH 1,000 unit PRN PRN Administration Heparin Heparin Sodium (Porcine) 5,000 unit 02/24/17 11:07 Heparin - IVPUSH PRN PRN Heparin Piperacillin Sod/Tazobactam Sod 50 mls @ 100 mls/hr 02/23/17 16:00 02/26/17 02: 54 Zosyn 3.375gm Ivpb (Pre-Docked) IVPB 100 mls/hr Q8H-IV [facility] Administration Protocol Heparin Sodium/Dextrose 500 mls @ 16 mls/hr 02/24/17 11:15 02/25/17 12:35 Heparin Infusion - IVPB 20 mls/hr TITR [facility] Administration Protocol 800 UNITS/HR Metoprolol Tartrate 25 mg 02/24/17 22:00 02/25/17 21:42 Lopressor - PO 25 mg BID [facility] Administration Morphine Sulfate 4 mg 02/23/17 17:53 02/26/17 02:29 Morphine 10 Mg/5 Ml Liquid PO 4 mg Q4H PRN Administration PAIN Pantoprazole Sodium 40 mg 02/25/17 10:00 02/25/17 10:05 Protonix - PO 40 mg DAILY [facility] Administration Microbiology 02/24/17 11:59 Blood - Peripheral Venous Blood Culture - Preliminary NO GROWTH OBTAINED AFTER 48 HOURS, INCUBATION TO CONTINUE FOR 3 DAYS. 02/24/17 11:59 Blood - Peripheral Venous Blood Culture - Preliminary NO GROWTH OBTAINED AFTER 48 HOURS, INCUBATION TO CONTINUE FOR 3 DAYS. 02/22/17 16:55 Urine - Urine Sharp Urine Culture - Final Pseudomonas Aeruginosa ASSESSMENT/PLAN: 61 yr old man with paraplegia secondary to T2 compression fracture, neurogenic bladder, recurrent UTI's, EtOH abuse, marijuana use, bilateral femur fractures who presented to the ED with worsening abdominal pain admitted for acute UTI, had one episode of paraxosymal Afib and hypotension. Cardiovascular Paroxysmal atrial fibrillation, currently in sinus rhythm and rate controlled heparin drip for afib dc'd, discussed with cardiology: patient's chadsvasc score of 0-1, patient does not require AC for afib, consider anticoagulation for his risk of DVT due to his immobility. lopressor 25mg po BID ASA 81mg po daily consult:dr. yoan ORTEGA sepsis secondary to UTI - pseudomonas Zosyn IVPB 3.375gm q8hr - day 3 bld cx NGTD leucocytosis improved consult: dr. saundra HENRY - f/u with urologist as outpatient, seen by urologist, no intervention at this time, patient is aware of intermittent catheterization and suprapubic tube, patient no interested in either at this time consult: dr. meyer Musculoskeletal paraplegia pain control with : valium 10mg po TID prn morphine 4mg q4hr prn pain DVT: heparin TID Diet: regular diet Dispo: can be monitored on Med/surg since to arrhythmias noted on ICU monitor and patient is currently in NSR. Visit type - Emergency Visit Emergency Visit: No - New Patient This patient is new to me today: No - Critical Care Critical Care patient: Yes Total Critical Care Time (in minutes): 36 Critical Care Statement: The care of this patient involved high complexity decision making to prevent further life threatening deterioration of the patient 's condition and/or to evalute & treat vital organ system(s) failure or risk of failure.
[2017-02-26] MEDS: PANTOPRAZOLE 40 MG TABLET (FP) PO SCH (09:24)
[2017-02-26] MEDS: ASPIRIN COATED 81 MG TABLET.EC PO SCH (09:25)
[2017-02-26] MEDS: METOPROLOL TARTRATE 25 MG TABLET (FP) PO SCH ×2 (09:25→21:08)
[2017-02-26 10:12] LABS: PLATELET COUNT 272 K/MM3 (134-434); PLATELET ESTIMATE ADEQUATE (NORMAL)
[2017-02-26 10:13] LABS: PLATELET COMMENT2 FEW LARGE PLTS
[2017-02-26 11:50] LABS: MEAN PLT VOLUME 9.5 fl (7.5-11.1)
--- NOTE | 2017-02-26 12:04 | PN ---
Progress Note, Physician Chief Complaint: Mr Valenzuela says he is feeling better today. No cp, sob, n/v. Says he feels a little bloated as his last bowel movement was four days ago. Taking miralax. - Current Medication List Current Medications: Active Medications Acetaminophen (Tylenol -) 650 mg PO Q6H PRN PRN Reason: FEVER OR PAIN Aspirin (Ecotrin -) 81 mg PO DAILY [facility] Last Admin: 02/26/17 09:25 Dose: 81 mg Diazepam (Valium -) 10 mg PO TID PRN PRN Reason: muscle spasms Last Admin: 02/25/17 23:54 Dose: 10 mg Heparin Sodium (Porcine) (Heparin -) 1,000 unit IVPUSH PRN PRN PRN Reason: Heparin Last Admin: 02/25/17 00:30 Dose: 1,000 unit Heparin Sodium (Porcine) (Heparin -) 5,000 unit IVPUSH PRN PRN PRN Reason: Heparin Piperacillin Sod/Tazobactam Sod (Zosyn 3.375gm Ivpb (Pre-Docked)) 50 mls @ 100 mls/hr IVPB Q8H-IV [facility] PRN Reason: Protocol Last Admin: 02/26/17 09:24 Dose: 100 mls/hr Heparin Sodium/Dextrose (Heparin Infusion -) 500 mls @ 16 mls/hr IVPB TITR [facility] ; 800 UNITS/HR PRN Reason: Protocol Last Admin: 02/25/17 12:35 Dose: 20 mls/hr Metoprolol Tartrate (Lopressor -) 25 mg PO BID [facility] Last Admin: 02/26/17 09:25 Dose: 25 mg Morphine Sulfate (Morphine 10 Mg/5 Ml Liquid) 4 mg PO Q4H PRN PRN Reason: PAIN Last Admin: 02/26/17 09:49 Dose: 4 mg Pantoprazole Sodium (Protonix -) 40 mg PO DAILY [facility] Last Admin: 02/26/17 09:24 Dose: 40 mg - Objective Vital Signs: Vital Signs Temperature 98.1 F 02/26/17 10:00 Pulse Rate 63 02/26/17 10:00 Respiratory Rate 19 02/26/17 10:00 Blood Pressure 111/56 02/26/17 10:00 O2 Sat by Pulse Oximetry (%) 98 02/25/17 21:00 Constitutional: Yes: Well Nourished, No Distress, Calm Cardiovascular: Yes: Bradycardia. No: Gallop, Murmur, Rub Respiratory: Yes: Regular, CTA Bilaterally. No: Rales, Rhonchi, Wheezes Extremities: Yes: WNL Edema: No Labs: CBC, BMP 02/26/17 05:20 02/26/17 05:20 INR, PTT INR 0.91 (0.82-1.09) 02/24/17 12:15 Problem List - Problems (1) Complicated UTI (urinary tract infection) Assessment/Plan: -patient with history of neurogenic bladder and repeated UTIs -growing pseudomonas, present on last admission as well -susceptible to zosyn -ID following -continue zosyn day 3 Code(s): N39.0 - URINARY TRACT INFECTION, SITE NOT SPECIFIED (2) Rapid atrial fibrillation Assessment/Plan: -now sinus kajal -cardiology following -ECHO report reviewed -on heparin gtt -will await cardiology recommendations concerning anticoagulation -may not need chronic anticoagulation outside of aspirin Code(s): I48.91 - UNSPECIFIED ATRIAL FIBRILLATION (3) Elevated troponin I level Assessment/Plan: -suspect stress induced from UTI and atrial fibrillation -decreasing -cardiology following Code(s): R74.8 - ABNORMAL LEVELS OF OTHER SERUM ENZYMES (4) Chronic pain Assessment/Plan: -continue current management Code(s): G89.29 - OTHER CHRONIC PAIN Qualifiers: Chronic pain type: chronic pain syndrome Qualified Code(s): G89.4 - Chronic pain syndrome (5) Paraplegia Assessment/Plan: -chronic Code(s): G82.20 - PARAPLEGIA, UNSPECIFIED
--- NOTE | 2017-02-26 13:12 | PN ---
Teaching Attending Note Name of Resident: Vibha June ATTENDING PHYSICIAN STATEMENT I saw and evaluated the patient. I reviewed the resident's note and discussed the case with the resident. I agree with the resident's findings and plan as documented. SUBJECTIVE: Pt seen and examined in the ICU. Remains in sinus rhythm. Denies shortness of breath or chest pain. Denies abdominal pain. No bowel movements x 4 day. OBJECTIVE: Last Vital Signs Temp Pulse Resp BP Pulse Ox 98.1 F 63 19 111/56 98 02/26/17 10:00 02/26/17 10:00 02/26/17 10:00 02/26/17 10:00 02/25/17 21:00 Intake & Output 02/23/17 02/24/17 02/25/17 02/26/17 23:59 23:59 23:59 23:59 Intake Total 840 1675 1510 490 Output Total 1000 2600 400 Balance 840 675 -1090 90 Weight 120 lb 109 lb 2 oz Gen: NAD at rest Heart: RRR Lung: decreased breath sounds at the bases Abd: soft, nontender Ext: contracted, no edema CBC, BMP 02/26/17 05:20 02/26/17 05:20 Active Medications Acetaminophen (Tylenol -) 650 mg PO Q6H PRN PRN Reason: FEVER OR PAIN Aspirin (Ecotrin -) 81 mg PO DAILY [facility] Last Admin: 02/26/17 09:25 Dose: 81 mg Diazepam (Valium -) 10 mg PO TID PRN PRN Reason: muscle spasms Last Admin: 02/25/17 23:54 Dose: 10 mg Piperacillin Sod/Tazobactam Sod (Zosyn 3.375gm Ivpb (Pre-Docked)) 50 mls @ 100 mls/hr IVPB Q8H-IV [facility] PRN Reason: Protocol Last Admin: 02/26/17 09:24 Dose: 100 mls/hr Metoprolol Tartrate (Lopressor -) 25 mg PO BID [facility] Last Admin: 02/26/17 09:25 Dose: 25 mg Morphine Sulfate (Morphine 10 Mg/5 Ml Liquid) 4 mg PO Q4H PRN PRN Reason: PAIN Last Admin: 02/26/17 09:49 Dose: 4 mg Pantoprazole Sodium (Protonix -) 40 mg PO DAILY [facility] Last Admin: 02/26/17 09:24 Dose: 40 mg ASSESSMENT AND PLAN: Paroxysmal Atrial Fibrillation now in sinus CAD/+Troponins/Demand Ischemia UTI Neurogenic Bladder Paraplegia - rhythm controlled - can stop heparin gtt - ASA - cardiac work up in progress - continue antibiotics - bowel regimen - can monitor on floor
[2017-02-26] MEDS: diazePAM 5 MG TABLET PO PRN ×2 (14:29→21:31)
[2017-02-26] MEDS ORDERED: SODIUM PHOSPHATE/NA BIPHOS 133 ML ENEMA PR ONE (15:27)
--- NOTE | 2017-02-26 16:07 | PN ---
Progress Note, Physician History of Present Illness: Remains in SR, denies chest pain or dyspnea, trops have peaked. - Current Medication List Current Medications: Active Medications Acetaminophen (Tylenol -) 650 mg PO Q6H PRN PRN Reason: FEVER OR PAIN Aspirin (Ecotrin -) 81 mg PO DAILY [facility] Last Admin: 02/26/17 09:25 Dose: 81 mg Diazepam (Valium -) 10 mg PO TID PRN PRN Reason: muscle spasms Last Admin: 02/26/17 14:29 Dose: 10 mg Heparin Sodium (Porcine) (Heparin -) 5,000 unit SQ BID [facility] Piperacillin Sod/Tazobactam Sod (Zosyn 3.375gm Ivpb (Pre-Docked)) 50 mls @ 100 mls/hr IVPB Q8H-IV [facility] PRN Reason: Protocol Last Admin: 02/26/17 09:24 Dose: 100 mls/hr Metoprolol Tartrate (Lopressor -) 25 mg PO BID [facility] Last Admin: 02/26/17 09:25 Dose: 25 mg Morphine Sulfate (Morphine 10 Mg/5 Ml Liquid) 4 mg PO Q4H PRN PRN Reason: PAIN Last Admin: 02/26/17 14:34 Dose: 4 mg Pantoprazole Sodium (Protonix -) 40 mg PO DAILY [facility] Last Admin: 02/26/17 09:24 Dose: 40 mg - Objective Vital Signs: Vital Signs Temperature 97.8 F 02/26/17 14:00 Pulse Rate 57 L 02/26/17 14:00 Respiratory Rate 20 02/26/17 14:00 Blood Pressure 107/59 02/26/17 14:00 O2 Sat by Pulse Oximetry (%) 98 02/26/17 09:00 Constitutional: Yes: No Distress, Calm Neck: Yes: Supple, Tenderness Respiratory: Yes: Regular, Diminished, On Nasal O2 Gastrointestinal: Yes: Normal Bowel Sounds, Soft Edema: No Labs: CBC, BMP 02/26/17 05:20 02/26/17 05:20 INR, PTT INR 0.91 (0.82-1.09) 02/24/17 12:15 Problem List - Problems (1) Complicated UTI (urinary tract infection) Code(s): N39.0 - URINARY TRACT INFECTION, SITE NOT SPECIFIED (2) Chronic pain Code(s): G89.29 - OTHER CHRONIC PAIN Qualifiers: Chronic pain type: chronic pain syndrome Qualified Code(s): G89.4 - Chronic pain syndrome (3) Paraplegia Code(s): G82.20 - PARAPLEGIA, UNSPECIFIED (4) Rapid atrial fibrillation Code(s): I48.91 - UNSPECIFIED ATRIAL FIBRILLATION (5) Neurogenic bladder Code(s): N31.9 - NEUROMUSCULAR DYSFUNCTION OF BLADDER, UNSPECIFIED (6) Demand ischemia Code(s): I24.8 - OTHER FORMS OF ACUTE ISCHEMIC HEART DISEASE Assessment/Plan 02/25/2017 Echo: Normal LV size and fxn, mild MR, TR 1. Paroxysmal atrial fibrillation, currently in sinus rhythm [id number] score of 0-1 2. CAD with evidence of demand ischemic injury, trops have peaked 3. Neurogenic bladder with chronic UTI 4. Paraplegia referable to T2 compression 5. Chronic pain syndrome PLAN: 1. Continue Lopressor 25 bid, ASA 81 qd 2. Given low [id number] score, patient would not benefit from A/C 3. Complete abx course per ID 4. DVT and GI prophylaxis
--- NOTE | 2017-02-26 17:29 | PN ---
Progress Note, Physician History of Present Illness: continues to be in afib clinically stable no complaints still ahs vague abd discomfort - Current Medication List Current Medications: Active Medications Acetaminophen (Tylenol -) 650 mg PO Q6H PRN PRN Reason: FEVER OR PAIN Aspirin (Ecotrin -) 81 mg PO DAILY [facility] Last Admin: 02/26/17 09:25 Dose: 81 mg Diazepam (Valium -) 10 mg PO TID PRN PRN Reason: muscle spasms Last Admin: 02/26/17 14:29 Dose: 10 mg Heparin Sodium (Porcine) (Heparin -) 5,000 unit SQ BID [facility] Piperacillin Sod/Tazobactam Sod (Zosyn 3.375gm Ivpb (Pre-Docked)) 50 mls @ 100 mls/hr IVPB Q8H-IV [facility] PRN Reason: Protocol Last Admin: 02/26/17 09:24 Dose: 100 mls/hr Metoprolol Tartrate (Lopressor -) 25 mg PO BID [facility] Last Admin: 02/26/17 09:25 Dose: 25 mg Morphine Sulfate (Morphine 10 Mg/5 Ml Liquid) 4 mg PO Q4H PRN PRN Reason: PAIN Last Admin: 02/26/17 14:34 Dose: 4 mg Pantoprazole Sodium (Protonix -) 40 mg PO DAILY [facility] Last Admin: 02/26/17 09:24 Dose: 40 mg - Objective Vital Signs: Vital Signs Temperature 97.8 F 02/26/17 14:00 Pulse Rate 57 L 02/26/17 14:00 Respiratory Rate 20 02/26/17 14:00 Blood Pressure 107/59 02/26/17 14:00 O2 Sat by Pulse Oximetry (%) 98 02/26/17 09:00 Constitutional: Yes: No Distress, Calm Cardiovascular: Yes: Pulse Irregular Respiratory: Yes: Regular, CTA Bilaterally Gastrointestinal: Yes: Normal Bowel Sounds, Soft Genitourinary: Yes: Other Musculoskeletal: Yes: Other Extremities: Yes: Other Neurological: Yes: Alert, Oriented Labs: CBC, BMP 02/26/17 05:20 INR, PTT INR 0.91 (0.82-1.09) 02/24/17 12:15 Assessment/Plan roblem List - Problems (1) Acute UTI Code(s): N39.0 - URINARY TRACT INFECTION, SITE NOT SPECIFIED (2) Bladder pain Code(s): R39.89 - OTHER SYMPTOMS AND SIGNS INVOLVING THE GENITOURINARY SYSTEM (3) Chronic pain Code(s): G89.29 - OTHER CHRONIC PAIN (4) Paraplegia Code(s): G82.20 - PARAPLEGIA, UNSPECIFIED (5) Constipation Code(s): K59.00 - CONSTIPATION, UNSPECIFIED 6 afib plan continue abx in icu cardio on case rest as per icu close monitoring cc time 40 min
[2017-02-26] MEDS ORDERED: PT OWN MED DRAWER 7, Y5N ONE (19:56)
[2017-02-26] MEDS: HEPARIN NA (PORCINE) 5,000 UNITS/ML 1ML VIAL SQ SCH (21:09)
[2017-02-27] MEDS: morphine SULFATE 10 MG/5 ML UNIT-DOSE CUP PO PRN ×6 (01:15→22:20)
[2017-02-27] MEDS: PIPERACILLIN/TAZOB 3.375 GM 50 ML IVPB SCH ×3 (01:16→18:36)
[2017-02-27 07:00] LABS: BASOPHIL 0.9 % (0-2.0); EOSINOPHIL 4.1 % (0-4.5); MCH 29.3 pg (25.7-33.7); MCHC 32.9 g/dl (32.0-35.9); NEUTROPHILS 54.1 % (42.8-82.8); PLATELET COUNT 256 K/MM3 (134-434); RDW 17.1 % (11.9-15.9); WHITE BLOOD COUNT 8.5 K/mm3 (4.0-10.0)
[2017-02-27 07:24] LABS: ANION GAP 7 (8-16); CALCIUM 8.7 mg/dL (8.5-10.1); CO2 30 mmol/L (21-32); CREATININE 0.6 mg/dL (0.7-1.3); GLUCOSE,RANDOM 83 mg/dL (74-106); PHOSPHOROUS 2.6 mg/dL (2.5-4.9)
[2017-02-27 07:25] LABS: MAGNESIUM 1.9 mg/dL (1.8-2.4)
--- NOTE | 2017-02-27 07:43 | PN ---
Physical Exam: SUBJECTIVE: Patient seen and examined. no bowel movements, requests miralax TID. declined enema yesterday and does not want enema today. OBJECTIVE: Vital Signs Period Temp Pulse Resp BP Sys/Roche Pulse Ox Last 24 Hr 97.8 F-98.4 F 46-88 18-20 106-164/56-72 98 GENERAL: The patient is in no acute distress. EYES:extraocular movements intact, sclera anicteric, conjunctiva clear ENT: oropharynx clear without exudates, moist mucous membranes. LUNGS: Breath sounds equal, clear to auscultation bilaterally, no wheezes, no crackles, no accessory muscle use HEART: Regular rate and rhythm, S1, S2 without murmur, rub or gallop. ABDOMEN: Soft, nontender, nondistended, normoactive bowel sounds well healing upper midline scar EXTREMITIES: freely moving arms. muscular atrophy b/l lower legs. NEUROLOGICAL: Normal speech, facial symmetry. paraplegic Laboratory Results - last 24 hr 02/26/17 02/26/17 02/26/17 05:20 16:30 16:30 WBC 11.0 H RBC 4.43 Hgb 12.9 Hct 39.0 MCV 88.0 MCHC 33.2 RDW 17.0 H Plt Count 272 MPV 9.5 Neutrophils % 67.8 Lymphocytes % 14.6 Monocytes % 13.1 H Eosinophils % 3.2 Basophils % 1.3 Platelet Estimate Adequate Platelet Comment Few large plts PTT (Actin FS) Potassium 4.0 Troponin I 0.37 H D 02/27/17 02/27/17 05:20 05:20 WBC 8.5 RBC 4.48 Hgb 13.1 Hct 39.9 MCV 89.0 MCHC 32.9 RDW 17.1 H Plt Count 256 MPV 10.0 Neutrophils % 54.1 D Lymphocytes % 24.3 D Monocytes % 16.6 H Eosinophils % 4.1 Basophils % 0.9 Platelet Estimate Platelet Comment PTT (Actin FS) 33.7 D Potassium Troponin I Active Medications Generic Name Dose Route Start Last Admin Trade Name Freq PRN Reason Stop Dose Admin Acetaminophen 650 mg 02/22/17 17:58 Tylenol - PO Q6H PRN FEVER OR PAIN Aspirin 81 mg 02/25/17 10:00 02/26/17 09:25 Ecotrin - PO 81 mg DAILY [facility] Administration Diazepam 10 mg 02/22/17 17:56 02/26/17 21:31 Valium - PO 10 mg TID PRN Administration muscle spasms Heparin Sodium (Porcine) 5,000 unit 02/26/17 22:00 02/26/17 21:09 Heparin - SQ 5,000 unit BID [facility] Administration Piperacillin Sod/Tazobactam Sod 50 mls @ 100 mls/hr 02/23/17 16:00 02/27/17 01: 16 Zosyn 3.375gm Ivpb (Pre-Docked) IVPB 100 mls/hr Q8H-IV [facility] Administration Protocol Metoprolol Tartrate 25 mg 02/24/17 22:00 02/26/17 21:08 Lopressor - PO 25 mg BID [facility] Administration Morphine Sulfate 4 mg 02/26/17 19:52 02/27/17 06:09 Morphine 10 Mg/5 Ml Liquid PO 4 mg Q4H PRN Administration PAIN LEVEL 1-5 Pantoprazole Sodium 40 mg 02/25/17 10:00 02/26/17 09:24 Protonix - PO 40 mg DAILY [facility] Administration ASSESSMENT/PLAN: 61 yr old man with paraplegia secondary to T2 compression fracture, neurogenic bladder, recurrent UTI's, EtOH abuse, marijuana use, bilateral femur fractures who presented to the ED with worsening abdominal pain admitted for acute UTI, had one episode of paraxosymal Afib and hypotension no resolved, pending transfer to Med/surg floor. Cardiovascular Paroxysmal atrial fibrillation, currently in sinus rhythm and rate controlled lopressor 25mg po BID ASA 81mg po daily consult:dr. yoan ORTEGA sepsis secondary to UTI - pseudomonas, improving Zosyn IVPB 3.375gm q8hr - day 4 bld cx NGTD leucocytosis resolved consult: dr. arguello - f/u with urologist as outpatient, seen by urologist, no intervention at this time, patient is aware of intermittent catheterization and suprapubic tube, patient no interested in either at this time consult: dr. meyer Musculoskeletal paraplegia, chronic pain syndrome pain control with : valium 10mg po TID prn morphine 4mg q4hr prn pain DVT: heparin BID sq Diet: regular diet Dispo: can be monitored on Med/surg since no arrhythmias noted on ICU monitor and patient is currently in NSR. Visit type - Emergency Visit Emergency Visit: No - New Patient This patient is new to me today: No - Critical Care Critical Care patient: No
[2017-02-27] MEDS ORDERED: ACETAMINOPHEN 325 MG TABLET (FP) PO PRN (07:51)
[2017-02-27] MEDS: ASPIRIN COATED 81 MG TABLET.EC PO SCH (09:32)
[2017-02-27] MEDS: METOPROLOL TARTRATE 25 MG TABLET (FP) PO SCH ×2 (09:33→22:08)
[2017-02-27] MEDS: HEPARIN NA (PORCINE) 5,000 UNITS/ML 1ML VIAL SQ SCH ×2 (09:33→22:07)
[2017-02-27] MEDS ORDERED: PIPERACILLIN/TAZOB 3.375 GM 50 ML IVPB SCH (10:00)
[2017-02-27] MEDS ORDERED: PANTOPRAZOLE 40 MG TABLET (FP) PO SCH (10:00)
--- NOTE | 2017-02-27 12:57 | PN ---
Teaching Attending Note Name of Resident: Vibha June ATTENDING PHYSICIAN STATEMENT I saw and evaluated the patient. I reviewed the resident's note and discussed the case with the resident. I agree with the resident's findings and plan as documented. SUBJECTIVE: Patient seen and examined in the ICU. Awake and alert. Denies CP or SOB. Intake & Output 02/24/17 02/25/17 02/26/17 02/27/17 23:59 23:59 23:59 23:59 Intake Total 1675 1510 1190 100 Output Total 1000 2600 2000 Balance 675 -1090 -810 100 Weight 109 lb 2 oz 113 lb 15.664 oz Last Vital Signs Temp Pulse Resp BP Pulse Ox 98.4 F 49 L 20 164/70 98 02/27/17 02:00 02/27/17 08:00 02/27/17 08:00 02/27/17 08:00 02/26/17 09:00 Active Medications Acetaminophen (Tylenol -) 650 mg PO Q6H PRN PRN Reason: FEVER OR PAIN Aspirin (Ecotrin -) 81 mg PO DAILY [facility] Last Admin: 02/27/17 09:32 Dose: 81 mg Diazepam (Valium -) 10 mg PO Q8H PRN PRN Reason: muscle spasms Heparin Sodium (Porcine) (Heparin -) 5,000 unit SQ BID [facility] Last Admin: 02/27/17 09:33 Dose: 5,000 unit Piperacillin Sod/Tazobactam Sod (Zosyn 3.375gm Ivpb (Pre-Docked)) 50 mls @ 100 mls/hr IVPB Q8H-IV [facility] PRN Reason: Protocol Metoprolol Tartrate (Lopressor -) 25 mg PO BID [facility] Last Admin: 02/27/17 09:33 Dose: 25 mg Morphine Sulfate (Morphine 10 Mg/5 Ml Liquid) 4 mg PO Q4H PRN PRN Reason: PAIN LEVEL 1-5 Last Admin: 02/27/17 09:34 Dose: 4 mg Polyethylene Glycol (Miralax (For Daily Use) -) 17 gm PO TID [facility] Ranitidine HCl (Zantac -) 150 mg PO BID [facility] Constitutional: No Distress, Thin Neck: Supple (-) JVD Respiratory: Diminished at the Bases Cardiovascular: S1 S2 RRR, (-) murmurs Gastrointestinal: Soft Benign Normal Bowel Sounds Ext: No Edema, contracted Labs: Laboratory Results - last 24 hr 02/26/17 02/26/17 02/27/17 16:30 16:30 05:20 WBC RBC Hgb Hct MCV MCHC RDW Plt Count MPV Neutrophils % Lymphocytes % Monocytes % Eosinophils % Basophils % PTT (Actin FS) 33.7 D Sodium Potassium 4.0 Chloride Carbon Dioxide Anion Gap BUN Creatinine Random Glucose Calcium Phosphorus Magnesium Troponin I 0.37 H D 02/27/17 02/27/17 05:20 05:20 WBC 8.5 RBC 4.48 Hgb 13.1 Hct 39.9 MCV 89.0 MCHC 32.9 RDW 17.1 H Plt Count 256 MPV 10.0 Neutrophils % 54.1 D Lymphocytes % 24.3 D Monocytes % 16.6 H Eosinophils % 4.1 Basophils % 0.9 PTT (Actin FS) Sodium 142 Potassium 3.9 Chloride 105 Carbon Dioxide 30 Anion Gap 7 L BUN 9 D Creatinine 0.6 L Random Glucose 83 Calcium 8.7 Phosphorus 2.6 Magnesium 1.9 Troponin I Assessment/Plan ASSESSMENT: AMI : demand ischemia Paroxysmal atrial fibrillation -> NSR CAD Neurogenic bladder with chronic UTI Paraplegia due to Fall and T2 compression Chronic pain syndrome PLAN: Lopressor O2 as needed ASA ABX per ID Floor Dr Menjivar
[2017-02-27] MEDS: POLYETHYLENE GLYCOL 3350 119 GM BTL PO SCH ×2 (13:54→22:16)
[2017-02-27] MEDS: RANITIDINE HCL 150 MG TABLET (FP) PO SCH ×2 (13:54→22:08)
[2017-02-27] MEDS: LACTULOSE 20 GM/30 ML UDC (FOR ORAL USE ONLY) PO SCH ×3 (14:16→22:16)
--- NOTE | 2017-02-27 15:06 | PN ---
Progress Note, Physician History of Present Illness: Remains in SR, denies chest pain or dyspnea, trops downtrending. - Current Medication List Current Medications: Active Medications Acetaminophen (Tylenol -) 650 mg PO Q6H PRN PRN Reason: FEVER OR PAIN Aspirin (Ecotrin -) 81 mg PO DAILY [facility] Last Admin: 02/27/17 09:32 Dose: 81 mg Diazepam (Valium -) 10 mg PO Q8H PRN PRN Reason: muscle spasms Heparin Sodium (Porcine) (Heparin -) 5,000 unit SQ BID [facility] Last Admin: 02/27/17 09:33 Dose: 5,000 unit Piperacillin Sod/Tazobactam Sod (Zosyn 3.375gm Ivpb (Pre-Docked)) 50 mls @ 100 mls/hr IVPB Q8H-IV [facility] PRN Reason: Protocol Last Admin: 02/27/17 14:17 Dose: 100 mls/hr Lactulose (Cephulac (Oral Use)) 20 gm PO QID [facility] Last Admin: 02/27/17 14:16 Dose: 20 gm Metoprolol Tartrate (Lopressor -) 25 mg PO BID [facility] Last Admin: 02/27/17 09:33 Dose: 25 mg Morphine Sulfate (Morphine 10 Mg/5 Ml Liquid) 4 mg PO Q4H PRN PRN Reason: PAIN LEVEL 1-5 Last Admin: 02/27/17 14:23 Dose: 4 mg Polyethylene Glycol (Miralax (For Daily Use) -) 17 gm PO TID [facility] Last Admin: 02/27/17 13:54 Dose: 17 grams Ranitidine HCl (Zantac -) 150 mg PO BID [facility] Last Admin: 02/27/17 13:54 Dose: 150 mg - Objective Vital Signs: Vital Signs Temperature 98.4 F 02/27/17 02:00 Pulse Rate 49 L 02/27/17 08:00 Respiratory Rate 20 02/27/17 08:00 Blood Pressure 164/70 02/27/17 08:00 O2 Sat by Pulse Oximetry (%) 98 02/26/17 09:00 Constitutional: Yes: No Distress, Calm Neck: Yes: Supple Cardiovascular: Yes: Regular Rate and Rhythm Respiratory: Yes: Regular, CTA Bilaterally Gastrointestinal: Yes: Normal Bowel Sounds, Soft Edema: No Labs: CBC, BMP 02/27/17 05:02/27/17 05:20 INR, PTT INR 0.91 (0.82-1.09) 02/24/17 12:15 Problem List - Problems (1) Complicated UTI (urinary tract infection) Code(s): N39.0 - URINARY TRACT INFECTION, SITE NOT SPECIFIED (2) Chronic pain Code(s): G89.29 - OTHER CHRONIC PAIN Qualifiers: Chronic pain type: chronic pain syndrome Qualified Code(s): G89.4 - Chronic pain syndrome (3) Paraplegia Code(s): G82.20 - PARAPLEGIA, UNSPECIFIED (4) Rapid atrial fibrillation Code(s): I48.91 - UNSPECIFIED ATRIAL FIBRILLATION (5) Neurogenic bladder Code(s): N31.9 - NEUROMUSCULAR DYSFUNCTION OF BLADDER, UNSPECIFIED (6) Demand ischemia Code(s): I24.8 - OTHER FORMS OF ACUTE ISCHEMIC HEART DISEASE Assessment/Plan 02/25/2017 Echo: Normal LV size and fxn, mild MR, TR 1. Paroxysmal atrial fibrillation, currently in sinus rhythm [id number] score of 0-1 2. CAD with evidence of demand ischemic injury, trops have peaked 3. Neurogenic bladder with chronic UTI 4. Paraplegia referable to T2 compression 5. Chronic pain syndrome PLAN: 1. Continue Lopressor 25 bid, ASA 81 qd 2. Given low [id number] score, patient would not benefit from A/C 3. Complete abx course per ID 4. DVT and GI prophylaxis
[2017-02-27] MEDS ORDERED: SODIUM PHOSPHATE/NA BIPHOS 133 ML ENEMA PR ONE (15:09)
--- NOTE | 2017-02-27 15:37 | PN ---
Progress Note, Physician Chief Complaint: Mr Valenzuela says he continues to feel better. Says the pain is much better controlled. Still with no bowel movement. No chest pain, shortness of breath, nausea/vomiting. - Current Medication List Current Medications: Active Medications Acetaminophen (Tylenol -) 650 mg PO Q6H PRN PRN Reason: FEVER OR PAIN Aspirin (Ecotrin -) 81 mg PO DAILY [facility] Last Admin: 02/27/17 09:32 Dose: 81 mg Diazepam (Valium -) 10 mg PO Q8H PRN PRN Reason: muscle spasms Heparin Sodium (Porcine) (Heparin -) 5,000 unit SQ BID [facility] Last Admin: 02/27/17 09:33 Dose: 5,000 unit Piperacillin Sod/Tazobactam Sod (Zosyn 3.375gm Ivpb (Pre-Docked)) 50 mls @ 100 mls/hr IVPB Q8H-IV [facility] PRN Reason: Protocol Last Admin: 02/27/17 14:17 Dose: 100 mls/hr Lactulose (Cephulac (Oral Use)) 20 gm PO QID [facility] Last Admin: 02/27/17 14:16 Dose: 20 gm Metoprolol Tartrate (Lopressor -) 25 mg PO BID [facility] Last Admin: 02/27/17 09:33 Dose: 25 mg Morphine Sulfate (Morphine 10 Mg/5 Ml Liquid) 4 mg PO Q4H PRN PRN Reason: PAIN LEVEL 1-5 Last Admin: 02/27/17 14:23 Dose: 4 mg Polyethylene Glycol (Miralax (For Daily Use) -) 17 gm PO TID [facility] Last Admin: 02/27/17 13:54 Dose: 17 grams Ranitidine HCl (Zantac -) 150 mg PO BID [facility] Last Admin: 02/27/17 13:54 Dose: 150 mg - Objective Vital Signs: Vital Signs Temperature 97.7 F 02/27/17 15:10 Pulse Rate 52 L 02/27/17 15:10 Respiratory Rate 18 02/27/17 15:10 Blood Pressure 128/58 02/27/17 15:10 O2 Sat by Pulse Oximetry (%) 98 02/26/17 09:00 Constitutional: Yes: No Distress, Calm, Thin Cardiovascular: Yes: Bradycardia. No: Gallop, Murmur, Rub Respiratory: Yes: Regular, CTA Bilaterally. No: Rales, Rhonchi, Wheezes Gastrointestinal: Yes: Normal Bowel Sounds, Soft. No: Distention, Tenderness Extremities: Yes: WNL Edema: No Labs: CBC, BMP 02/27/17 05:20 02/27/17 05:20 INR, PTT INR 0.91 (0.82-1.09) 02/24/17 12:15 Problem List - Problems (1) Complicated UTI (urinary tract infection) Code(s): N39.0 - URINARY TRACT INFECTION, SITE NOT SPECIFIED (2) Rapid atrial fibrillation Code(s): I48.91 - UNSPECIFIED ATRIAL FIBRILLATION (3) Elevated troponin I level Code(s): R74.8 - ABNORMAL LEVELS OF OTHER SERUM ENZYMES (4) Chronic pain Code(s): G89.29 - OTHER CHRONIC PAIN Qualifiers: Chronic pain type: chronic pain syndrome Qualified Code(s): G89.4 - Chronic pain syndrome (5) Paraplegia Code(s): G82.20 - PARAPLEGIA, UNSPECIFIED Assessment/Plan (1) Complicated UTI (urinary tract infection) Assessment/Plan: -patient with history of neurogenic bladder and repeated UTIs -growing pseudomonas, present on last admission as well -susceptible to zosyn -ID following -continue zosyn day 4 Code(s): N39.0 - URINARY TRACT INFECTION, SITE NOT SPECIFIED (2) Rapid atrial fibrillation Assessment/Plan: -cardiology note reviewed -does not need AC -currently in sinus rhythm -continue metoprolol Code(s): I48.91 - UNSPECIFIED ATRIAL FIBRILLATION (3) Elevated troponin I level Assessment/Plan: -continue current management Code(s): R74.8 - ABNORMAL LEVELS OF OTHER SERUM ENZYMES (4) Chronic pain Assessment/Plan: -continue current management Code(s): G89.29 - OTHER CHRONIC PAIN Qualifiers: Chronic pain type: chronic pain syndrome Qualified Code(s): G89.4 - Chronic pain syndrome (5) Paraplegia Assessment/Plan: -chronic Code(s): G82.20 - PARAPLEGIA, UNSPECIFIED (6) Constipation -patient still with constipation -says been present for 6 days -miralax ineffective -will try scheduled lactulose
--- NOTE | 2017-02-27 16:13 | PN ---
Progress Note, Physician History of Present Illness: patient stable no new issues now in sinus - Current Medication List Current Medications: Active Medications Acetaminophen (Tylenol -) 650 mg PO Q6H PRN PRN Reason: FEVER OR PAIN Aspirin (Ecotrin -) 81 mg PO DAILY [facility] Last Admin: 02/27/17 09:32 Dose: 81 mg Diazepam (Valium -) 10 mg PO Q8H PRN PRN Reason: muscle spasms Heparin Sodium (Porcine) (Heparin -) 5,000 unit SQ BID [facility] Last Admin: 02/27/17 09:33 Dose: 5,000 unit Piperacillin Sod/Tazobactam Sod (Zosyn 3.375gm Ivpb (Pre-Docked)) 50 mls @ 100 mls/hr IVPB Q8H-IV [facility] PRN Reason: Protocol Last Admin: 02/27/17 14:17 Dose: 100 mls/hr Lactulose (Cephulac (Oral Use)) 20 gm PO QID [facility] Last Admin: 02/27/17 14:16 Dose: 20 gm Metoprolol Tartrate (Lopressor -) 25 mg PO BID [facility] Last Admin: 02/27/17 09:33 Dose: 25 mg Morphine Sulfate (Morphine 10 Mg/5 Ml Liquid) 4 mg PO Q4H PRN PRN Reason: PAIN LEVEL 1-5 Last Admin: 02/27/17 14:23 Dose: 4 mg Polyethylene Glycol (Miralax (For Daily Use) -) 17 gm PO TID [facility] Last Admin: 02/27/17 13:54 Dose: 17 grams Ranitidine HCl (Zantac -) 150 mg PO BID [facility] Last Admin: 02/27/17 13:54 Dose: 150 mg - Objective Vital Signs: Vital Signs Temperature 97.7 F 02/27/17 15:10 Pulse Rate 52 L 02/27/17 15:10 Respiratory Rate 18 02/27/17 15:10 Blood Pressure 128/58 02/27/17 15:10 O2 Sat by Pulse Oximetry (%) 98 02/26/17 09:00 Constitutional: Yes: No Distress, Calm Cardiovascular: Yes: Regular Rate and Rhythm, Bradycardia Respiratory: Yes: Regular, CTA Bilaterally Gastrointestinal: Yes: Normal Bowel Sounds, Soft Musculoskeletal: Yes: Other Extremities: Yes: Other Neurological: Yes: Alert, Oriented Psychiatric: Yes: Alert, Oriented Labs: CBC, BMP 02/27/17 05:20 06/22/17 05:20 INR, PTT INR 0.91 (0.82-1.09) 02/24/17 12:15 Assessment/Plan elvam List - Problems (1) Acute UTI Code(s): N39.0 - URINARY TRACT INFECTION, SITE NOT SPECIFIED (2) Bladder pain Code(s): R39.89 - OTHER SYMPTOMS AND SIGNS INVOLVING THE GENITOURINARY SYSTEM (3) Chronic pain Code(s): G89.29 - OTHER CHRONIC PAIN (4) Paraplegia Code(s): G82.20 - PARAPLEGIA, UNSPECIFIED (5) Constipation Code(s): K59.00 - CONSTIPATION, UNSPECIFIED 6 afib plan continue abx in icu cardio on case rest as per icu close monitoring urine cx pending cc time 40 min
[2017-02-27] MEDS ORDERED: SIMETHICONE 80 MG TAB.CHEW (FP) PO PRN (20:55)
[2017-02-27] MEDS: diazePAM 5 MG TABLET PO PRN (22:19)
[2017-02-28] MEDS: PIPERACILLIN/TAZOB 3.375 GM 50 ML IVPB SCH ×3 (01:14→18:10)
[2017-02-28] MEDS: morphine SULFATE 10 MG/5 ML UNIT-DOSE CUP PO PRN ×4 (04:29→22:18)
[2017-02-28] MEDS: POLYETHYLENE GLYCOL 3350 119 GM BTL PO SCH ×3 (06:19→22:18)
[2017-02-28] MEDS: diazePAM 5 MG TABLET PO PRN ×2 (06:26→22:21)
[2017-02-28 08:22] LABS: BASOPHIL 0.8 % (0-2.0); MCH 29.2 pg (25.7-33.7); MCHC 32.9 g/dl (32.0-35.9); MEAN CELL VOLUME 88.9 fl (80-96); MEAN PLT VOLUME 10.2 fl (7.5-11.1); NEUTROPHILS 60.9 % (42.8-82.8); PLATELET COUNT 251 K/MM3 (134-434); RDW 17.2 % (11.9-15.9); WHITE BLOOD COUNT 9.3 K/mm3 (4.0-10.0)
[2017-02-28 08:48] LABS: ANION GAP 8 (8-16); CO2 29 mmol/L (21-32); CREATININE 0.7 mg/dL (0.7-1.3); GLUCOSE,RANDOM 74 mg/dL (74-106); PHOSPHOROUS 2.7 mg/dL (2.5-4.9)
[2017-02-28] MEDS: ASPIRIN COATED 81 MG TABLET.EC PO SCH (09:27)
[2017-02-28] MEDS: LACTULOSE 20 GM/30 ML UDC (FOR ORAL USE ONLY) PO SCH ×2 (09:27→13:55)
[2017-02-28] MEDS: RANITIDINE HCL 150 MG TABLET (FP) PO SCH ×2 (09:28→22:18)
[2017-02-28] MEDS: METOPROLOL TARTRATE 25 MG TABLET (FP) PO SCH (09:28)
[2017-02-28] MEDS: HEPARIN NA (PORCINE) 5,000 UNITS/ML 1ML VIAL SQ SCH ×2 (09:38→22:17)
--- NOTE | 2017-02-28 14:07 | PN ---
Progress Note, Physician History of Present Illness: feels better after he had flatus no complaints - Current Medication List Current Medications: Active Medications Acetaminophen (Tylenol -) 650 mg PO Q6H PRN PRN Reason: FEVER OR PAIN Aspirin (Ecotrin -) 81 mg PO DAILY [facility] Last Admin: 02/28/17 09:27 Dose: 81 mg Diazepam (Valium -) 10 mg PO Q8H PRN PRN Reason: muscle spasms Last Admin: 02/28/17 06:26 Dose: 10 mg Heparin Sodium (Porcine) (Heparin -) 5,000 unit SQ BID [facility] Last Admin: 02/28/17 09:38 Dose: 5,000 unit Piperacillin Sod/Tazobactam Sod (Zosyn 3.375gm Ivpb (Pre-Docked)) 50 mls @ 100 mls/hr IVPB Q8H-IV [facility] PRN Reason: Protocol Last Admin: 02/28/17 09:28 Dose: 100 mls/hr Lactulose (Cephulac (Oral Use)) 20 gm PO QID [facility] Last Admin: 02/28/17 13:55 Dose: Not Given Metoprolol Tartrate (Lopressor -) 25 mg PO BID [facility] Last Admin: 02/28/17 09:28 Dose: 25 mg Morphine Sulfate (Morphine 10 Mg/5 Ml Liquid) 4 mg PO Q4H PRN PRN Reason: PAIN LEVEL 1-5 Last Admin: 02/28/17 09:29 Dose: 4 mg Polyethylene Glycol (Miralax (For Daily Use) -) 17 gm PO TID [facility] Last Admin: 02/28/17 13:55 Dose: Not Given Ranitidine HCl (Zantac -) 150 mg PO BID [facility] Last Admin: 02/28/17 09:28 Dose: 150 mg Simethicone (Mylicon -) 80 mg PO QID PRN PRN Reason: DYSPEPSIA Last Admin: 02/27/17 22:09 Dose: 80 mg - Objective Vital Signs: Vital Signs Temperature 99.1 F 02/28/17 06:01 Pulse Rate 52 L 02/28/17 06:01 Respiratory Rate 18 02/28/17 06:01 Blood Pressure 124/53 02/28/17 06:01 O2 Sat by Pulse Oximetry (%) 98 02/28/17 09:00 Constitutional: Yes: No Distress, Calm Cardiovascular: Yes: Regular Rate and Rhythm, Bradycardia Respiratory: Yes: Regular, CTA Bilaterally Genitourinary: Yes: Other Musculoskeletal: Yes: Other Extremities: Yes: Other (paraplegia) Neurological: Yes: Alert, Oriented Psychiatric: Yes: Alert Labs: CBC, BMP 02/28/17 07:00 02/28/17 07:00 INR, PTT INR 0.91 (0.82-1.09) 02/24/17 12:15 Assessment/Plan roble List - Problems (1) Acute UTI Code(s): N39.0 - URINARY TRACT INFECTION, SITE NOT SPECIFIED (2) Bladder pain Code(s): R39.89 - OTHER SYMPTOMS AND SIGNS INVOLVING THE GENITOURINARY SYSTEM (3) Chronic pain Code(s): G89.29 - OTHER CHRONIC PAIN (4) Paraplegia Code(s): G82.20 - PARAPLEGIA, UNSPECIFIED (5) Constipation Code(s): K59.00 - CONSTIPATION, UNSPECIFIED 6 afib plan continue abx will continue abx till 24 will stop abx on rest as per primary
--- NOTE | 2017-02-28 14:20 | PN ---
Progress Note, Physician History of Present Illness: Remains in SR, denies chest pain or dyspnea, trops downtrending. - Current Medication List Current Medications: Active Medications Acetaminophen (Tylenol -) 650 mg PO Q6H PRN PRN Reason: FEVER OR PAIN Aspirin (Ecotrin -) 81 mg PO DAILY [facility] Last Admin: 02/28/17 09:27 Dose: 81 mg Diazepam (Valium -) 10 mg PO Q8H PRN PRN Reason: muscle spasms Last Admin: 02/28/17 06:26 Dose: 10 mg Heparin Sodium (Porcine) (Heparin -) 5,000 unit SQ BID [facility] Last Admin: 02/28/17 09:38 Dose: 5,000 unit Piperacillin Sod/Tazobactam Sod (Zosyn 3.375gm Ivpb (Pre-Docked)) 50 mls @ 100 mls/hr IVPB Q8H-IV [facility] PRN Reason: Protocol Last Admin: 02/28/17 09:28 Dose: 100 mls/hr Lactulose (Cephulac (Oral Use)) 20 gm PO QID [facility] Last Admin: 02/28/17 13:55 Dose: Not Given Metoprolol Tartrate (Lopressor -) 25 mg PO BID [facility] Last Admin: 02/28/17 09:28 Dose: 25 mg Morphine Sulfate (Morphine 10 Mg/5 Ml Liquid) 4 mg PO Q4H PRN PRN Reason: PAIN LEVEL 1-5 Last Admin: 02/28/17 09:29 Dose: 4 mg Polyethylene Glycol (Miralax (For Daily Use) -) 17 gm PO TID [facility] Last Admin: 02/28/17 13:55 Dose: Not Given Ranitidine HCl (Zantac -) 150 mg PO BID [facility] Last Admin: 02/28/17 09:28 Dose: 150 mg Simethicone (Mylicon -) 80 mg PO QID PRN PRN Reason: DYSPEPSIA Last Admin: 02/27/17 22:09 Dose: 80 mg - Objective Vital Signs: Vital Signs Temperature 99.1 F 02/28/17 06:01 Pulse Rate 52 L 02/28/17 06:01 Respiratory Rate 18 02/28/17 06:01 Blood Pressure 124/53 02/28/17 06:01 O2 Sat by Pulse Oximetry (%) 98 02/28/17 09:00 Constitutional: Yes: No Distress, Calm Neck: Yes: Supple Cardiovascular: Yes: Regular Rate and Rhythm Respiratory: Yes: Regular, Diminished Gastrointestinal: Yes: Normal Bowel Sounds, Soft Edema: No Labs: CBC, BMP 02/28/17 07:00 02/28/17 07:00 INR, PTT INR 0.91 (0.82-1.09) 02/24/17 12:15 Problem List - Problems (1) Complicated UTI (urinary tract infection) Code(s): N39.0 - URINARY TRACT INFECTION, SITE NOT SPECIFIED (2) Chronic pain Code(s): G89.29 - OTHER CHRONIC PAIN Qualifiers: Chronic pain type: chronic pain syndrome Qualified Code(s): G89.4 - Chronic pain syndrome (3) Paraplegia Code(s): G82.20 - PARAPLEGIA, UNSPECIFIED (4) Rapid atrial fibrillation Code(s): I48.91 - UNSPECIFIED ATRIAL FIBRILLATION (5) Neurogenic bladder Code(s): N31.9 - NEUROMUSCULAR DYSFUNCTION OF BLADDER, UNSPECIFIED (6) Demand ischemia Code(s): I24.8 - OTHER FORMS OF ACUTE ISCHEMIC HEART DISEASE Assessment/Plan 02/25/2017 Echo: Normal LV size and fxn, mild MR, TR 1. Paroxysmal atrial fibrillation, currently in sinus rhythm [id number] score of 0-1 2. CAD with evidence of demand ischemic injury, trops have peaked 3. Neurogenic bladder with chronic UTI 4. Paraplegia referable to T2 compression 5. Chronic pain syndrome PLAN: 1. Change Toprol XL 25 qd, ASA 81 qd 2. Given low [id number] score, patient would not benefit from A/C 3. Complete abx course per ID 4. DVT and GI prophylaxis
--- NOTE | 2017-02-28 16:57 | PN ---
Progress Note, Physician Chief Complaint: Mr Valenzuela had a bowel movement today and feels improved. No cp, sob, n/v. - Current Medication List Current Medications: Active Medications Acetaminophen (Tylenol -) 650 mg PO Q6H PRN PRN Reason: FEVER OR PAIN Aspirin (Ecotrin -) 81 mg PO DAILY [facility] Last Admin: 02/28/17 09:27 Dose: 81 mg Diazepam (Valium -) 10 mg PO Q8H PRN PRN Reason: muscle spasms Last Admin: 02/28/17 06:26 Dose: 10 mg Heparin Sodium (Porcine) (Heparin -) 5,000 unit SQ BID [facility] Last Admin: 02/28/17 09:38 Dose: 5,000 unit Piperacillin Sod/Tazobactam Sod (Zosyn 3.375gm Ivpb (Pre-Docked)) 50 mls @ 100 mls/hr IVPB Q8H-IV [facility] PRN Reason: Protocol Last Admin: 02/28/17 09:28 Dose: 100 mls/hr Lactulose (Cephulac (Oral Use)) 20 gm PO QID [facility] Last Admin: 02/28/17 13:55 Dose: Not Given Metoprolol Succinate (Toprol Xl -) 25 mg PO DAILY [facility] Morphine Sulfate (Morphine 10 Mg/5 Ml Liquid) 4 mg PO Q4H PRN PRN Reason: PAIN LEVEL 1-5 Last Admin: 02/28/17 15:57 Dose: 4 mg Polyethylene Glycol (Miralax (For Daily Use) -) 17 gm PO TID [facility] Last Admin: 02/28/17 13:55 Dose: Not Given Ranitidine HCl (Zantac -) 150 mg PO BID [facility] Last Admin: 02/28/17 09:28 Dose: 150 mg Simethicone (Mylicon -) 80 mg PO QID PRN PRN Reason: DYSPEPSIA Last Admin: 02/27/17 22:09 Dose: 80 mg - Objective Vital Signs: Vital Signs Temperature 99.1 F 02/28/17 06:01 Pulse Rate 52 L 02/28/17 06:01 Respiratory Rate 18 02/28/17 06:01 Blood Pressure 124/53 02/28/17 06:01 O2 Sat by Pulse Oximetry (%) 98 02/28/17 09:00 Constitutional: Yes: Well Nourished, No Distress, Calm Cardiovascular: Yes: Tachycardia. No: Pulse Irregular, Gallop, Murmur, Rub Respiratory: Yes: Regular, CTA Bilaterally. No: Rales, Rhonchi, Wheezes Gastrointestinal: Yes: Normal Bowel Sounds, Soft. No: Distention, Tenderness Extremities: Yes: WNL Edema: No Labs: CBC, BMP 02/28/17 07:00 02/28/17 07:00 INR, PTT INR 0.91 (0.82-1.09) 02/24/17 12:15 Problem List - Problems (1) Complicated UTI (urinary tract infection) Code(s): N39.0 - URINARY TRACT INFECTION, SITE NOT SPECIFIED (2) Rapid atrial fibrillation Code(s): I48.91 - UNSPECIFIED ATRIAL FIBRILLATION (3) Elevated troponin I level Code(s): R74.8 - ABNORMAL LEVELS OF OTHER SERUM ENZYMES (4) Chronic pain Code(s): G89.29 - OTHER CHRONIC PAIN Qualifiers: Chronic pain type: chronic pain syndrome Qualified Code(s): G89.4 - Chronic pain syndrome (5) Paraplegia Code(s): G82.20 - PARAPLEGIA, UNSPECIFIED Assessment/Plan (1) Complicated UTI (urinary tract infection) Assessment/Plan: -patient with history of neurogenic bladder and repeated UTIs -growing pseudomonas, present on last admission as well -susceptible to zosyn -ID following -continue zosyn day 5 -plan to stop on 03/02 per ID note Code(s): N39.0 - URINARY TRACT INFECTION, SITE NOT SPECIFIED (2) Rapid atrial fibrillation Assessment/Plan: -cardiology note reviewed -does not need AC -currently in sinus rhythm, bradycardic -continue metoprolol Code(s): I48.91 - UNSPECIFIED ATRIAL FIBRILLATION (3) Elevated troponin I level Assessment/Plan: -continue current management Code(s): R74.8 - ABNORMAL LEVELS OF OTHER SERUM ENZYMES (4) Chronic pain Assessment/Plan: -continue current management Code(s): G89.29 - OTHER CHRONIC PAIN Qualifiers: Chronic pain type: chronic pain syndrome Qualified Code(s): G89.4 - Chronic pain syndrome (5) Paraplegia Assessment/Plan: -chronic Code(s): G82.20 - PARAPLEGIA, UNSPECIFIED (6) Constipation -lactulose effective -change to prn
[2017-02-28] MEDS ORDERED: LACTULOSE 20 GM/30 ML UDC (FOR ORAL USE ONLY) PO PRN (16:58)
[2017-03-01] MEDS: PIPERACILLIN/TAZOB 3.375 GM 50 ML IVPB SCH ×3 (01:19→17:03)
[2017-03-01] MEDS: POLYETHYLENE GLYCOL 3350 119 GM BTL PO SCH ×3 (06:21→21:01)
[2017-03-01] MEDS: ASPIRIN COATED 81 MG TABLET.EC PO SCH (09:56)
[2017-03-01] MEDS: RANITIDINE HCL 150 MG TABLET (FP) PO SCH ×2 (09:56→21:01)
[2017-03-01] MEDS: METOPROLOL SUCCINATE 25 MG TAB.SR.24H (FP) PO SCH (09:58)
[2017-03-01] MEDS: HEPARIN NA (PORCINE) 5,000 UNITS/ML 1ML VIAL SQ SCH ×2 (09:59→21:00)
[2017-03-01] MEDS: morphine SULFATE 10 MG/5 ML UNIT-DOSE CUP PO PRN ×3 (10:19→22:17)
[2017-03-01] MEDS: diazePAM 5 MG TABLET PO PRN ×2 (10:20→20:13)
--- NOTE | 2017-03-01 10:41 | PN ---
Progress Note (short form) - Note Progress Note: Resting in NAD. No acute events overnight. No CP or SOB. Intake & Output 02/26/17 02/27/17 02/28/17 03/01/17 23:59 23:59 23:59 23:59 Intake Total 1190 1300 750 50 Output Total 2000 2200 1700 Balance -810 -900 -950 50 Weight 109 lb 2 oz 113 lb 15.664 oz Last Vital Signs Temp Pulse Resp BP Pulse Ox 98.2 F 49 L 18 144/61 98 03/01/17 06:00 03/01/17 06:00 03/01/17 06:00 03/01/17 06:00 02/28/17 21:00 Active Medications Acetaminophen (Tylenol -) 650 mg PO Q6H PRN PRN Reason: FEVER OR PAIN Aspirin (Ecotrin -) 81 mg PO DAILY [facility] Last Admin: 03/01/17 09:56 Dose: 81 mg Diazepam (Valium -) 10 mg PO Q8H PRN PRN Reason: muscle spasms Last Admin: 03/01/17 10:20 Dose: 10 mg Heparin Sodium (Porcine) (Heparin -) 5,000 unit SQ BID [facility] Last Admin: 03/01/17 09:59 Dose: 5,000 unit Piperacillin Sod/Tazobactam Sod (Zosyn 3.375gm Ivpb (Pre-Docked)) 50 mls @ 100 mls/hr IVPB Q8H-IV [facility] PRN Reason: Protocol Last Admin: 03/01/17 09:59 Dose: 100 mls/hr Lactulose (Cephulac (Oral Use)) 20 gm PO QID PRN PRN Reason: CONSTIPATION Metoprolol Succinate (Toprol Xl -) 25 mg PO DAILY [facility] Last Admin: 03/01/17 09:58 Dose: 25 mg Morphine Sulfate (Morphine 10 Mg/5 Ml Liquid) 4 mg PO Q4H PRN PRN Reason: PAIN LEVEL 1-5 Last Admin: 03/01/17 10:19 Dose: 4 mg Polyethylene Glycol (Miralax (For Daily Use) -) 17 gm PO TID [facility] Last Admin: 03/01/17 06:21 Dose: Not Given Ranitidine HCl (Zantac -) 150 mg PO BID [facility] Last Admin: 03/01/17 09:56 Dose: 150 mg Simethicone (Mylicon -) 80 mg PO QID PRN PRN Reason: DYSPEPSIA Last Admin: 02/27/17 22:09 Dose: 80 mg Constitutional: No Distress, Thin Neck: Supple (-) JVD Respiratory: Diminished at the Bases Cardiovascular: S1 S2 RRR, (-) murmurs Gastrointestinal: Soft Benign Normal Bowel Sounds Ext: No Edema, contracted Labs: Assessment/Plan ASSESSMENT: AMI : demand ischemia Paroxysmal atrial fibrillation -> NSR CAD Neurogenic bladder with chronic UTI Paraplegia due to Fall and T2 compression Chronic pain syndrome PLAN: ABX per ID VTE prophylaxis ASA Dr Menjivar
--- NOTE | 2017-03-01 13:19 | PN ---
Progress Note, Physician History of Present Illness: stable some abd pain - Current Medication List Current Medications: Active Medications Acetaminophen (Tylenol -) 650 mg PO Q6H PRN PRN Reason: FEVER OR PAIN Aspirin (Ecotrin -) 81 mg PO DAILY [facility] Last Admin: 03/01/17 09:56 Dose: 81 mg Diazepam (Valium -) 10 mg PO Q8H PRN PRN Reason: muscle spasms Last Admin: 03/01/17 10:20 Dose: 10 mg Heparin Sodium (Porcine) (Heparin -) 5,000 unit SQ BID [facility] Last Admin: 03/01/17 09:59 Dose: 5,000 unit Piperacillin Sod/Tazobactam Sod (Zosyn 3.375gm Ivpb (Pre-Docked)) 50 mls @ 100 mls/hr IVPB Q8H-IV [facility] PRN Reason: Protocol Last Admin: 03/01/17 09:59 Dose: 100 mls/hr Lactulose (Cephulac (Oral Use)) 20 gm PO QID PRN PRN Reason: CONSTIPATION Metoprolol Succinate (Toprol Xl -) 25 mg PO DAILY [facility] Last Admin: 03/01/17 09:58 Dose: 25 mg Morphine Sulfate (Morphine 10 Mg/5 Ml Liquid) 4 mg PO Q4H PRN PRN Reason: PAIN LEVEL 1-5 Last Admin: 03/01/17 10:19 Dose: 4 mg Polyethylene Glycol (Miralax (For Daily Use) -) 17 gm PO TID [facility] Last Admin: 03/01/17 13:16 Dose: Not Given Ranitidine HCl (Zantac -) 150 mg PO BID [facility] Last Admin: 03/01/17 09:56 Dose: 150 mg Simethicone (Mylicon -) 80 mg PO QID PRN PRN Reason: DYSPEPSIA Last Admin: 02/27/17 22:09 Dose: 80 mg - Objective Vital Signs: Vital Signs Temperature 98.2 F 03/01/17 06:00 Pulse Rate 49 L 03/01/17 06:00 Respiratory Rate 18 03/01/17 06:00 Blood Pressure 144/61 03/01/17 06:00 O2 Sat by Pulse Oximetry (%) 98 02/28/17 21:00 Constitutional: Yes: No Distress, Calm Eyes: Yes: Conjunctiva Clear Cardiovascular: Yes: Regular Rate and Rhythm Respiratory: Yes: Regular, CTA Bilaterally Gastrointestinal: Yes: Normal Bowel Sounds, Soft Musculoskeletal: Yes: Other Extremities: Yes: Other Neurological: Yes: Alert, Oriented Psychiatric: Yes: Alert, Oriented Labs: CBC, BMP 02/28/17 07:00 02/28/17 07:00 INR, PTT INR 0.91 (0.82-1.09) 02/24/17 12:15 Assessment/Plan roblem List - Problems (1) Acute UTI Code(s): N39.0 - URINARY TRACT INFECTION, SITE NOT SPECIFIED (2) Bladder pain Code(s): R39.89 - OTHER SYMPTOMS AND SIGNS INVOLVING THE GENITOURINARY SYSTEM (3) Chronic pain Code(s): G89.29 - OTHER CHRONIC PAIN (4) Paraplegia Code(s): G82.20 - PARAPLEGIA, UNSPECIFIED (5) Constipation Code(s): K59.00 - CONSTIPATION, UNSPECIFIED 6 afib plan continue abx will continue abx till 24th will stop abx on rest as per primary
--- NOTE | 2017-03-01 16:29 | PN ---
Progress Note, Physician Chief Complaint: Events noted Not in distress History of Present Illness: Patient was seen and examined. Awake and alert. Chart was reviewed Denies chest pain, SOB or palpitations - Current Medication List Current Medications: Active Medications Acetaminophen (Tylenol -) 650 mg PO Q6H PRN PRN Reason: FEVER OR PAIN Aspirin (Ecotrin -) 81 mg PO DAILY [facility] Last Admin: 03/01/17 09:56 Dose: 81 mg Diazepam (Valium -) 10 mg PO Q8H PRN PRN Reason: muscle spasms Last Admin: 03/01/17 10:20 Dose: 10 mg Heparin Sodium (Porcine) (Heparin -) 5,000 unit SQ BID [facility] Last Admin: 03/01/17 09:59 Dose: 5,000 unit Piperacillin Sod/Tazobactam Sod (Zosyn 3.375gm Ivpb (Pre-Docked)) 50 mls @ 100 mls/hr IVPB Q8H-IV [facility] PRN Reason: Protocol Last Admin: 03/01/17 09:59 Dose: 100 mls/hr Lactulose (Cephulac (Oral Use)) 20 gm PO QID PRN PRN Reason: CONSTIPATION Metoprolol Succinate (Toprol Xl -) 25 mg PO DAILY [facility] Last Admin: 03/01/17 09:58 Dose: 25 mg Morphine Sulfate (Morphine 10 Mg/5 Ml Liquid) 4 mg PO Q4H PRN PRN Reason: PAIN LEVEL 1-5 Last Admin: 03/01/17 14:31 Dose: 4 mg Polyethylene Glycol (Miralax (For Daily Use) -) 17 gm PO TID [facility] Last Admin: 03/01/17 13:16 Dose: Not Given Ranitidine HCl (Zantac -) 150 mg PO BID [facility] Last Admin: 03/01/17 09:56 Dose: 150 mg Simethicone (Mylicon -) 80 mg PO QID PRN PRN Reason: DYSPEPSIA Last Admin: 02/27/17 22:09 Dose: 80 mg - Objective Vital Signs: Vital Signs Temperature 98.0 F 03/01/17 15:16 Pulse Rate 56 L 03/01/17 15:16 Respiratory Rate 16 03/01/17 15:16 Blood Pressure 138/62 03/01/17 15:16 O2 Sat by Pulse Oximetry (%) 99 03/01/17 10:00 Neck: Yes: Supple Cardiovascular: Yes: Regular Rate and Rhythm, S1, S2 Respiratory: Yes: CTA Bilaterally Gastrointestinal: Yes: Normal Bowel Sounds, Soft. No: Tenderness Edema: No Labs: CBC, BMP 02/28/17 07:00 02/28/17 07:00 Problem List - Problems (1) Demand ischemia Code(s): I24.8 - OTHER FORMS OF ACUTE ISCHEMIC HEART DISEASE (2) Elevated troponin I level Code(s): R74.8 - ABNORMAL LEVELS OF OTHER SERUM ENZYMES (3) Neurogenic bladder Code(s): N31.9 - NEUROMUSCULAR DYSFUNCTION OF BLADDER, UNSPECIFIED (4) Complicated UTI (urinary tract infection) Code(s): N39.0 - URINARY TRACT INFECTION, SITE NOT SPECIFIED (5) Paraplegia Code(s): G82.20 - PARAPLEGIA, UNSPECIFIED (6) PAF (paroxysmal atrial fibrillation) Code(s): I48.0 - PAROXYSMAL ATRIAL FIBRILLATION Assessment/Plan 1. Paroxysmal atrial fibrillation, currently in sinus rhythm [id number] score of 0-1 2. CAD with evidence of demand ischemic injury, troponin trending down 3. Neurogenic bladder with chronic UTI 4. Paraplegia referable to T2 compression 5. Chronic pain syndrome PLAN: 1. Continue Toprol XL 25 mg qd and ASA 81 mg qd 2. Given low [id number] score, patient would not benefit from anticoagulation 3. Complete antibiotic course per ID 4. DVT and GI prophylaxis Further plans are to follow Samuel Carrera MD
--- NOTE | 2017-03-01 17:03 | PN ---
Physical Exam: SUBJECTIVE: Patient seen and examined OBJECTIVE: Vital Signs Period Temp Pulse Resp BP Sys/Roche Pulse Ox Last 24 Hr 98.0 F-98.6 F 49-90 16-18 111-144/52-67 98-99 GENERAL: The patient is awake, alert, and fully oriented, in no acute distress. HEAD: Normal with no signs of trauma. EYES: PERRL, extraocular movements intact, sclera anicteric, conjunctiva clear. No ptosis. LUNGS: Breath sounds equal, clear to auscultation bilaterally, no wheezes, no crackles, no accessory muscle use. HEART: Regular rate and rhythm, S1, S2 without murmur, rub or gallop. ABDOMEN: Soft, nontender, nondistended, normoactive bowel sounds, no guarding, no rebound, no hepatosplenomegaly, no masses. EXTREMITIES: Legs contracted and rotated 90 degress to the right NEUROLOGICAL: Cranial nerves II through XII grossly intact. Normal speech Active Medications Generic Name Dose Route Start Last Admin Trade Name Freq PRN Reason Stop Dose Admin Acetaminophen 650 mg 02/27/17 07:51 Tylenol - PO Q6H PRN FEVER OR PAIN Aspirin 81 mg 02/27/17 10:00 03/01/17 09:56 Ecotrin - PO 81 mg DAILY [facility] Administration Diazepam 10 mg 02/27/17 07:51 03/01/17 10:20 Valium - PO 10 mg Q8H PRN Administration muscle spasms Heparin Sodium (Porcine) 5,000 unit 02/26/17 22:00 03/01/17 09:59 Heparin - SQ 5,000 unit BID [facility] Administration Piperacillin Sod/Tazobactam Sod 50 mls @ 100 mls/hr 02/27/17 14:15 03/01/17 09: 59 Zosyn 3.375gm Ivpb (Pre-Docked) IVPB 100 mls/hr Q8H-IV [facility] Administration Protocol Lactulose 20 gm 02/28/17 16:58 Cephulac (Oral Use) PO QID PRN CONSTIPATION Metoprolol Succinate 25 mg 03/01/17 10:00 03/01/17 09:58 Toprol Xl - PO 25 mg DAILY [facility] Administration Morphine Sulfate 4 mg 02/26/17 19:52 03/01/17 14:31 Morphine 10 Mg/5 Ml Liquid PO 4 mg Q4H PRN Administration PAIN LEVEL 1-5 Polyethylene Glycol 17 gm 02/27/17 14:00 03/01/17 13:16 Miralax (For Daily Use) - PO Not Given TID [facility] Ranitidine HCl 150 mg 02/27/17 13:30 03/01/17 09:56 Zantac - PO 150 mg BID [facility] Administration Simethicone 80 mg 02/27/17 20:55 02/27/17 22:09 Mylicon - PO 80 mg QID PRN Administration DYSPEPSIA Assessment/Plan (1) Complicated UTI (urinary tract infection) Assessment/Plan: -patient with history of neurogenic bladder and repeated UTIs -growing pseudomonas, present on last admission as well -susceptible to zosyn -ID following -today is Zosyn day #7 -plan to stop on 03/02 per ID note Code(s): N39.0 - URINARY TRACT INFECTION, SITE NOT SPECIFIED (2) Rapid atrial fibrillation Assessment/Plan: -cardiology note reviewed -does not need AC -currently in sinus rhythm, bradycardic -continue metoprolol Code(s): I48.91 - UNSPECIFIED ATRIAL FIBRILLATION (3) Elevated troponin I level Assessment/Plan: -continue current management Code(s): R74.8 - ABNORMAL LEVELS OF OTHER SERUM ENZYMES (4) Chronic pain Assessment/Plan: -continue current management Code(s): G89.29 - OTHER CHRONIC PAIN Qualifiers: Chronic pain type: chronic pain syndrome Qualified Code(s): G89.4 - Chronic pain syndrome (5) Paraplegia Assessment/Plan: -chronic Code(s): G82.20 - PARAPLEGIA, UNSPECIFIED (6) Constipation -patient complaining of numerous bowel movements -stop lactulose Visit type - Emergency Visit Emergency Visit: Yes ED Registration Date: 02/22/17 Care time: The patient presented to the Emergency Department on the above date and was hospitalized for further evaluation of their emergent condition. - New Patient This patient is new to me today: Yes Date on this admission: 03/01/17 - Critical Care Critical Care patient: No
[2017-03-01] MEDS ORDERED: MORPHINE SULFATE 10 MG/5 ML CUP PO PRN (20:12)
[2017-03-02] MEDS: PIPERACILLIN/TAZOB 3.375 GM 50 ML IVPB SCH ×3 (01:14→17:34)
[2017-03-02] MEDS: POLYETHYLENE GLYCOL 3350 119 GM BTL PO SCH ×3 (05:49→21:51)
[2017-03-02 06:47] LABS: BASOPHIL 0.8 % (0-2.0); MCH 29.8 pg (25.7-33.7); MCHC 33.7 g/dl (32.0-35.9); MEAN CELL VOLUME 88.3 fl (80-96); MEAN PLT VOLUME 9.8 fl (7.5-11.1); NEUTROPHILS 61.4 % (42.8-82.8); PLATELET COUNT 285 K/MM3 (134-434); WHITE BLOOD COUNT 9.6 K/mm3 (4.0-10.0)
[2017-03-02] MEDS: morphine SULFATE 10 MG/5 ML UNIT-DOSE CUP PO PRN ×4 (07:33→21:58)
[2017-03-02 07:44] LABS: ALBUMIN 3.1 g/dl (3.4-5.0); ALK PHOS 101 U/L (45-117); ANION GAP 9 (8-16); BILIRUBIN,TOTAL 0.6 mg/dL (0.2-1.0); CALCIUM 8.8 mg/dL (8.5-10.1); CO2 29 mmol/L (21-32); CREATININE 0.7 mg/dL (0.7-1.3); GLUCOSE,RANDOM 71 mg/dL (74-106); MAGNESIUM 2.2 mg/dL (1.8-2.4); SGOT/AST 15 U/L (15-37); SGPT/ALT 15 U/L (12-78); TOT PROT 6.8 g/dl (6.4-8.2)
[2017-03-02] MEDS: RANITIDINE HCL 150 MG TABLET (FP) PO SCH ×2 (10:30→21:57)
[2017-03-02] MEDS: METOPROLOL SUCCINATE 25 MG TAB.SR.24H (FP) PO SCH (10:30)
[2017-03-02] MEDS: ASPIRIN COATED 81 MG TABLET.EC PO SCH (10:30)
[2017-03-02] MEDS: HEPARIN NA (PORCINE) 5,000 UNITS/ML 1ML VIAL SQ SCH ×2 (10:30→21:57)
--- NOTE | 2017-03-02 12:33 | PN ---
Progress Note (short form) - Note Progress Note: Resting in NAD. No acute events overnight. No CP or SOB. Intake & Output 02/27/17 02/28/17 03/01/17 03/02/17 23:59 23:59 23:59 23:59 Intake Total 1300 750 350 50 Output Total 2200 1700 900 500 Balance -900 -950 -550 -450 Weight 113 lb 15.664 oz Last Vital Signs Temp Pulse Resp BP Pulse Ox 98.6 F 57 L 20 100/50 99 03/02/17 09:00 03/02/17 09:00 03/02/17 09:00 03/02/17 09:00 03/01/17 21:00 Active Medications Acetaminophen (Tylenol -) 650 mg PO Q6H PRN PRN Reason: FEVER OR PAIN Aspirin (Ecotrin -) 81 mg PO DAILY [facility] Last Admin: 03/02/17 10:30 Dose: 81 mg Heparin Sodium (Porcine) (Heparin -) 5,000 unit SQ BID [facility] Last Admin: 03/02/17 10:30 Dose: 5,000 unit Piperacillin Sod/Tazobactam Sod (Zosyn 3.375gm Ivpb (Pre-Docked)) 50 mls @ 100 mls/hr IVPB Q8H-IV [facility] PRN Reason: Protocol Last Admin: 03/02/17 10:30 Dose: 100 mls/hr Metoprolol Succinate (Toprol Xl -) 25 mg PO DAILY [facility] Last Admin: 03/02/17 10:30 Dose: 25 mg Morphine Sulfate (Morphine 10 Mg/5 Ml Liquid) 4 mg PO Q4H PRN PRN Reason: PAIN Last Admin: 03/02/17 11:33 Dose: 4 mg Polyethylene Glycol (Miralax (For Daily Use) -) 17 gm PO TID [facility] Last Admin: 03/02/17 05:49 Dose: Not Given Ranitidine HCl (Zantac -) 150 mg PO BID [facility] Last Admin: 03/02/17 10:30 Dose: 150 mg Simethicone (Mylicon -) 80 mg PO QID PRN PRN Reason: DYSPEPSIA Last Admin: 02/27/17 22:09 Dose: 80 mg Constitutional: No Distress, Thin Neck: Supple (-) JVD Respiratory: Diminished at the Bases Cardiovascular: S1 S2 RRR, (-) murmurs Gastrointestinal: Soft Benign Normal Bowel Sounds Ext: No Edema, contracted Labs: Assessment/Plan ASSESSMENT: AMI : demand ischemia Paroxysmal atrial fibrillation -> NSR CAD Neurogenic bladder with chronic UTI Paraplegia due to Fall and T2 compression Chronic pain syndrome PLAN: ABX per ID VTE prophylaxis ASA Dr Menjivar
--- NOTE | 2017-03-02 13:40 | PN ---
Physical Exam: SUBJECTIVE: Patient seen and examined at bedside. Feels tired today. Diarrhea has improved. OBJECTIVE: Vital Signs Period Temp Pulse Resp BP Sys/Roche Pulse Ox Last 24 Hr 97.8 F-98.6 F 48-57 16-20 100-139/50-68 99 GENERAL: The patient is awake, alert, and fully oriented, in no acute distress. HEAD: Normal with no signs of trauma. EYES: PERRL, extraocular movements intact, sclera anicteric, conjunctiva clear. No ptosis. LUNGS: Breath sounds equal, clear to auscultation bilaterally, no wheezes, no crackles, no accessory muscle use. HEART: Regular rate and rhythm, S1, S2 without murmur, rub or gallop. ABDOMEN: Soft, nontender, nondistended, normoactive bowel sounds, no guarding, no rebound, no hepatosplenomegaly, no masses. EXTREMITIES: Legs contracted and rotated 90 degress to the right NEUROLOGICAL: Cranial nerves II through XII grossly intact. Normal speech Laboratory Results - last 24 hr 03/02/17 03/02/17 06:00 06:00 WBC 9.6 RBC 4.50 Hgb 13.4 Hct 39.8 MCV 88.3 MCHC 33.7 RDW 17.0 H Plt Count 285 MPV 9.8 Neutrophils % 61.4 Lymphocytes % 18.2 Monocytes % 15.6 H Eosinophils % 4.0 Basophils % 0.8 Sodium 139 Potassium 4.4 Chloride 101 Carbon Dioxide 29 Anion Gap 9 BUN 13 D Creatinine 0.7 Creat Clearance w eGFR > 60 Random Glucose 71 L Calcium 8.8 Magnesium 2.2 Total Bilirubin 0.6 D AST 15 D ALT 15 Alkaline Phosphatase 101 Total Protein 6.8 Albumin 3.1 L Active Medications Generic Name Dose Route Start Last Admin Trade Name Freq PRN Reason Stop Dose Admin Acetaminophen 650 mg 02/27/17 07:51 Tylenol - PO Q6H PRN FEVER OR PAIN Aspirin 81 mg 02/27/17 10:00 03/02/17 10:30 Ecotrin - PO 81 mg DAILY [facility] Administration Heparin Sodium (Porcine) 5,000 unit 02/26/17 22:00 03/02/17 10:30 Heparin - SQ 5,000 unit BID [facility] Administration Piperacillin Sod/Tazobactam Sod 50 mls @ 100 mls/hr 02/27/17 14:15 03/02/17 10: 30 Zosyn 3.375gm Ivpb (Pre-Docked) IVPB 100 mls/hr Q8H-IV [facility] Administration Protocol Metoprolol Succinate 25 mg 03/01/17 10:00 03/02/17 10:30 Toprol Xl - PO 25 mg DAILY [facility] Administration Morphine Sulfate 4 mg 03/01/17 22:14 03/02/17 11:33 Morphine 10 Mg/5 Ml Liquid PO 4 mg Q4H PRN Administration PAIN Polyethylene Glycol 17 gm 02/27/17 14:00 03/02/17 05:49 Miralax (For Daily Use) - PO Not Given TID [facility] Ranitidine HCl 150 mg 02/27/17 13:30 03/02/17 10:30 Zantac - PO 150 mg BID [facility] Administration Simethicone 80 mg 02/27/17 20:55 02/27/17 22:09 Mylicon - PO 80 mg QID PRN Administration DYSPEPSIA Assessment/Plan (1) Complicated UTI (urinary tract infection) Assessment/Plan: -patient with history of neurogenic bladder and repeated UTIs -growing pseudomonas, present on last admission as well -susceptible to zosyn -ID following -today is Zosyn day #7 -plan to stop on 03/02 per ID note (2) Rapid atrial fibrillation Assessment/Plan: -cardiology note reviewed -does not need AC -currently in sinus rhythm, bradycardic -continue metoprolol (3) Elevated troponin I level Assessment/Plan: -continue current management (4) Chronic pain Assessment/Plan: -continue current management (5) Paraplegia Assessment/Plan: -chronic (6) Constipation -diarrhea has improved since stopping lactulose Visit type - Emergency Visit Emergency Visit: Yes ED Registration Date: 02/22/17 Care time: The patient presented to the Emergency Department on the above date and was hospitalized for further evaluation of their emergent condition. - New Patient This patient is new to me today: No - Critical Care Critical Care patient: No
[2017-03-02 20:16] LABS: BASOPHIL 1.1 % (0-2.0); EOSINOPHIL 4.8 % (0-4.5); MCH 28.8 pg (25.7-33.7); MCHC 32.7 g/dl (32.0-35.9); MEAN CELL VOLUME 88.1 fl (80-96); MEAN PLT VOLUME 10.1 fl (7.5-11.1); NEUTROPHILS 63.6 % (42.8-82.8); RDW 17.3 % (11.9-15.9); WHITE BLOOD COUNT 10.2 K/mm3 (4.0-10.0)
[2017-03-02 20:48] LABS: ALBUMIN 3.1 g/dl (3.4-5.0); ALK PHOS 103 U/L (45-117); ANION GAP 8 (8-16); BILIRUBIN,TOTAL 0.3 mg/dL (0.2-1.0); CO2 29 mmol/L (21-32); CREATININE 0.9 mg/dL (0.7-1.3); GLUCOSE,RANDOM 104 mg/dL (74-106); SGOT/AST 14 U/L (15-37); SGPT/ALT 17 U/L (12-78); TOT PROT 7.1 g/dl (6.4-8.2)
[2017-03-02 21:06] LABS: PLATELET COMMENT2 NO CLUMPING NOTED; PLATELET COMMENT3 NO CLOTTING DETECTED; PLATELET COUNT 326 K/MM3 (134-434); PLATELET ESTIMATE ADEQUATE (NORMAL)
[2017-03-02] MEDS: diazePAM 5 MG TABLET PO PRN (22:00)
[2017-03-03] MEDS: morphine SULFATE 10 MG/5 ML UNIT-DOSE CUP PO PRN ×3 (02:04→20:37)
[2017-03-03] MEDS: PIPERACILLIN/TAZOB 3.375 GM 50 ML IVPB SCH ×2 (02:19→10:32)
[2017-03-03] MEDS: POLYETHYLENE GLYCOL 3350 119 GM BTL PO SCH ×3 (05:33→21:52)
[2017-03-03] MEDS: HEPARIN NA (PORCINE) 5,000 UNITS/ML 1ML VIAL SQ SCH ×3 (10:34→21:55)
[2017-03-03] MEDS: ASPIRIN COATED 81 MG TABLET.EC PO SCH (10:34)
[2017-03-03] MEDS: RANITIDINE HCL 150 MG TABLET (FP) PO SCH ×2 (10:34→21:55)
[2017-03-03] MEDS: METOPROLOL SUCCINATE 25 MG TAB.SR.24H (FP) PO SCH (10:35)
--- NOTE | 2017-03-03 10:53 | DS ---
Physical Examination Vital Signs: Vital Signs Temperature 98.7 F 03/03/17 06:00 Pulse Rate 77 03/03/17 06:00 Respiratory Rate 18 03/03/17 06:00 Blood Pressure 117/51 03/03/17 06:00 O2 Sat by Pulse Oximetry (%) 99 03/01/17 21:00 Labs: CBC, BMP 03/02/17 19:20 03/02/17 19:20 Discharge Summary Reason For Visit: ACUTE UTI Current Active Problems Acute UTI (Acute) Demand ischemia (Acute) Elevated troponin I level (Acute) Neurogenic bladder (Acute) PAF (paroxysmal atrial fibrillation) (Acute) Rapid atrial fibrillation (Acute) Constipation (Chronic) Condition: Stable - Instructions Diet, Activity, Other Instructions: resume previous diet and activity Referrals: Juan Manuel Kang MD [Staff Physician] - Disposition: [facility]/HOME HEALTH CARE - Home Medications Comprehensive Discharge Medication List: Ambulatory Orders Diazepam [Valium] 10 mg PO TID PRN #30 tablet MDD 30mg 09/16/16 Morphine 10 mg/5 ml Liquid [Morphine 10 mg/5 mL Liquid -] 1 mg PO Q4H PRN Aspirin Coated [Ecotrin -] 81 mg PO DAILY #30 tab.ec 03/03/17 Metoprolol Succinate [Toprol XL -] 25 mg PO DAILY #30 tab.sr 03/03/17 Polyethylene Glycol 3350 [Miralax 119 gm Btl -] 17 gm PO TID #1 bottle 03/03/17 Ranitidine [Zantac -] 150 mg PO BID #60 tablet 03/03/17 Simethicone [Mylicon -] 80 mg PO QID PRN #60 tab.chew 03/03/17
--- NOTE | 2017-03-03 11:04 | PN ---
Progress Note (short form) - Note Progress Note: Resting in NAD on RA. No acute events overnight. No CP or SOB. Intake & Output 02/28/17 03/01/17 03/02/17 03/03/17 23:59 23:59 23:59 23:59 Intake Total 750 350 450 120 Output Total 9788 834 1159 800 Balance -950 -550 -750 -680 Last Vital Signs Temp Pulse Resp BP Pulse Ox 98.7 F 77 18 117/51 99 03/03/17 06:00 03/03/17 06:00 03/03/17 06:00 03/03/17 06:00 03/01/17 21:00 Active Medications Acetaminophen (Tylenol -) 650 mg PO Q6H PRN PRN Reason: FEVER OR PAIN Aspirin (Ecotrin -) 81 mg PO DAILY [facility] Last Admin: 03/03/17 10:34 Dose: 81 mg Diazepam (Valium -) 10 mg PO Q8H PRN PRN Reason: MUSCLE SPASMS Last Admin: 03/02/17 22:00 Dose: 10 mg Heparin Sodium (Porcine) (Heparin -) 5,000 unit SQ BID [facility] Last Admin: 03/03/17 10:50 Dose: Not Given Metoprolol Succinate (Toprol Xl -) 25 mg PO DAILY [facility] Last Admin: 03/03/17 10:35 Dose: 25 mg Morphine Sulfate (Morphine 10 Mg/5 Ml Liquid) 4 mg PO Q4H PRN PRN Reason: PAIN Last Admin: 03/03/17 08:55 Dose: 4 mg Polyethylene Glycol (Miralax (For Daily Use) -) 17 gm PO TID [facility] Last Admin: 03/03/17 05:33 Dose: Not Given Ranitidine HCl (Zantac -) 150 mg PO BID [facility] Last Admin: 03/03/17 10:34 Dose: 150 mg Simethicone (Mylicon -) 80 mg PO QID PRN PRN Reason: DYSPEPSIA Last Admin: 02/27/17 22:09 Dose: 80 mg Constitutional: No Distress, Thin Neck: Supple (-) JVD Respiratory: Diminished at the Bases Cardiovascular: S1 S2 RRR, (-) murmurs Gastrointestinal: Soft Benign Normal Bowel Sounds Ext: No Edema, contracted Labs: Laboratory Results - last 24 hr 03/02/17 03/02/17 19:20 19:20 WBC 10.2 H RBC 4.50 Hgb 13.0 Hct 39.7 MCV 88.1 MCHC 32.7 RDW 17.3 H Plt Count 326 MPV 10.1 Neutrophils % 63.6 Lymphocytes % 16.5 Monocytes % 14.0 H Eosinophils % 4.8 H Basophils % 1.1 Differential Comment Slide scanned Platelet Estimate Adequate Platelet Comment No clumping noted Sodium 140 Potassium 4.2 Chloride 103 Carbon Dioxide 29 Anion Gap 8 BUN 16 D Creatinine 0.9 D Creat Clearance w eGFR > 60 Random Glucose 104 D Calcium 9.0 Magnesium 2.0 Total Bilirubin 0.3 D AST 14 L ALT 17 Alkaline Phosphatase 103 Total Protein 7.1 Albumin 3.1 L Assessment/Plan ASSESSMENT: AMI : demand ischemia Paroxysmal atrial fibrillation -> NSR CAD Neurogenic bladder with chronic UTI Paraplegia due to Fall and T2 compression Chronic pain syndrome PLAN: S/P ABX D/C home anticipated Dr Menjivar
--- NOTE | 2017-03-03 11:44 | PN ---
Progress Note, Physician History of Present Illness: no events overnight patient stable - Current Medication List Current Medications: Active Medications Acetaminophen (Tylenol -) 650 mg PO Q6H PRN PRN Reason: FEVER OR PAIN Aspirin (Ecotrin -) 81 mg PO DAILY [facility] Last Admin: 03/03/17 10:34 Dose: 81 mg Diazepam (Valium -) 10 mg PO Q8H PRN PRN Reason: MUSCLE SPASMS Last Admin: 03/02/17 22:00 Dose: 10 mg Heparin Sodium (Porcine) (Heparin -) 5,000 unit SQ BID [facility] Last Admin: 03/03/17 10:50 Dose: Not Given Metoprolol Succinate (Toprol Xl -) 25 mg PO DAILY [facility] Last Admin: 03/03/17 10:35 Dose: 25 mg Morphine Sulfate (Morphine 10 Mg/5 Ml Liquid) 4 mg PO Q4H PRN PRN Reason: PAIN Last Admin: 03/03/17 08:55 Dose: 4 mg Polyethylene Glycol (Miralax (For Daily Use) -) 17 gm PO TID [facility] Last Admin: 03/03/17 05:33 Dose: Not Given Ranitidine HCl (Zantac -) 150 mg PO BID [facility] Last Admin: 03/03/17 10:34 Dose: 150 mg Simethicone (Mylicon -) 80 mg PO QID PRN PRN Reason: DYSPEPSIA Last Admin: 02/27/17 22:09 Dose: 80 mg - Objective Vital Signs: Vital Signs Temperature 98.7 F 03/03/17 06:00 Pulse Rate 77 03/03/17 06:00 Respiratory Rate 18 03/03/17 06:00 Blood Pressure 117/51 03/03/17 06:00 O2 Sat by Pulse Oximetry (%) 99 03/01/17 21:00 Constitutional: Yes: No Distress, Calm HENT: Yes: Atraumatic, Normocephalic Cardiovascular: Yes: Regular Rate and Rhythm Respiratory: Yes: Regular, CTA Bilaterally Gastrointestinal: Yes: Normal Bowel Sounds, Soft Musculoskeletal: Yes: Other Extremities: Yes: Other Neurological: Yes: Alert, Oriented Psychiatric: Yes: Alert, Oriented Labs: CBC, BMP 03/02/17 19:20 03/02/17 19:20 INR, PTT INR 0.91 (0.82-1.09) 02/24/17 12:15 Assessment/Plan roblem List - Problems (1) Acute UTI Code(s): N39.0 - URINARY TRACT INFECTION, SITE NOT SPECIFIED (2) Bladder pain Code(s): R39.89 - OTHER SYMPTOMS AND SIGNS INVOLVING THE GENITOURINARY SYSTEM (3) Chronic pain Code(s): G89.29 - OTHER CHRONIC PAIN (4) Paraplegia Code(s): G82.20 - PARAPLEGIA, UNSPECIFIED (5) Constipation Code(s): K59.00 - CONSTIPATION, UNSPECIFIED 6 afib plan stable off of abx rest as per primary
--- NOTE | 2017-03-03 11:49 | PN ---
Progress Note, Physician History of Present Illness: Remains in SR, denies chest pain or dyspnea, ready for d/c. - Current Medication List Current Medications: Active Medications Acetaminophen (Tylenol -) 650 mg PO Q6H PRN PRN Reason: FEVER OR PAIN Aspirin (Ecotrin -) 81 mg PO DAILY [facility] Last Admin: 03/03/17 10:34 Dose: 81 mg Diazepam (Valium -) 10 mg PO Q8H PRN PRN Reason: MUSCLE SPASMS Last Admin: 03/02/17 22:00 Dose: 10 mg Heparin Sodium (Porcine) (Heparin -) 5,000 unit SQ BID [facility] Last Admin: 03/03/17 10:50 Dose: Not Given Metoprolol Succinate (Toprol Xl -) 25 mg PO DAILY [facility] Last Admin: 03/03/17 10:35 Dose: 25 mg Morphine Sulfate (Morphine 10 Mg/5 Ml Liquid) 4 mg PO Q4H PRN PRN Reason: PAIN Last Admin: 03/03/17 08:55 Dose: 4 mg Polyethylene Glycol (Miralax (For Daily Use) -) 17 gm PO TID [facility] Last Admin: 03/03/17 05:33 Dose: Not Given Ranitidine HCl (Zantac -) 150 mg PO BID [facility] Last Admin: 03/03/17 10:34 Dose: 150 mg Simethicone (Mylicon -) 80 mg PO QID PRN PRN Reason: DYSPEPSIA Last Admin: 02/27/17 22:09 Dose: 80 mg - Objective Vital Signs: Vital Signs Temperature 98.7 F 03/03/17 06:00 Pulse Rate 77 03/03/17 06:00 Respiratory Rate 18 03/03/17 06:00 Blood Pressure 117/51 03/03/17 06:00 O2 Sat by Pulse Oximetry (%) 99 03/01/17 21:00 Constitutional: Yes: No Distress, Calm Neck: Yes: Supple Cardiovascular: Yes: Regular Rate and Rhythm Respiratory: Yes: Regular, Diminished Gastrointestinal: Yes: Normal Bowel Sounds, Soft Edema: No Labs: CBC, BMP 03/02/17 19:20 03/02/17 19:20 INR, PTT INR 0.91 (0.82-1.09) 02/24/17 12:15 Problem List - Problems (1) Complicated UTI (urinary tract infection) Code(s): N39.0 - URINARY TRACT INFECTION, SITE NOT SPECIFIED (2) Chronic pain Code(s): G89.29 - OTHER CHRONIC PAIN Qualifiers: Chronic pain type: chronic pain syndrome Qualified Code(s): G89.4 - Chronic pain syndrome (3) Paraplegia Code(s): G82.20 - PARAPLEGIA, UNSPECIFIED (4) Rapid atrial fibrillation Code(s): I48.91 - UNSPECIFIED ATRIAL FIBRILLATION (5) Neurogenic bladder Code(s): N31.9 - NEUROMUSCULAR DYSFUNCTION OF BLADDER, UNSPECIFIED (6) Demand ischemia Code(s): I24.8 - OTHER FORMS OF ACUTE ISCHEMIC HEART DISEASE Assessment/Plan 1. Paroxysmal atrial fibrillation, currently in sinus rhythm [id number] score of 0-1 2. CAD with evidence of demand ischemic injury, troponin trending down 3. Neurogenic bladder with chronic UTI 4. Paraplegia referable to T2 compression 5. Chronic pain syndrome PLAN: 1. Continue Toprol XL 25 mg qd and ASA 81 mg qd 2. Given low [id number] score, patient would not benefit from anticoagulation 3. Completed antibiotic course per ID 4. DVT and GI prophylaxis. d/c planning
--- NOTE | 2017-03-03 14:19 | PN ---
Progress Note, Physician Chief Complaint: Mr Valenzuela says he is having diarrhea and does not feel well. Denies cp, sob, n/ v. - Current Medication List Current Medications: Active Medications Acetaminophen (Tylenol -) 650 mg PO Q6H PRN PRN Reason: FEVER OR PAIN Aspirin (Ecotrin -) 81 mg PO DAILY [facility] Last Admin: 03/03/17 10:34 Dose: 81 mg Diazepam (Valium -) 10 mg PO Q8H PRN PRN Reason: MUSCLE SPASMS Last Admin: 03/02/17 22:00 Dose: 10 mg Heparin Sodium (Porcine) (Heparin -) 5,000 unit SQ BID [facility] Last Admin: 03/03/17 10:50 Dose: Not Given Metoprolol Succinate (Toprol Xl -) 25 mg PO DAILY [facility] Last Admin: 03/03/17 10:35 Dose: 25 mg Morphine Sulfate (Morphine 10 Mg/5 Ml Liquid) 4 mg PO Q4H PRN PRN Reason: PAIN Last Admin: 03/03/17 08:55 Dose: 4 mg Polyethylene Glycol (Miralax (For Daily Use) -) 17 gm PO TID [facility] Last Admin: 03/03/17 05:33 Dose: Not Given Ranitidine HCl (Zantac -) 150 mg PO BID [facility] Last Admin: 03/03/17 10:34 Dose: 150 mg Simethicone (Mylicon -) 80 mg PO QID PRN PRN Reason: DYSPEPSIA Last Admin: 02/27/17 22:09 Dose: 80 mg - Objective Vital Signs: Vital Signs Temperature 98.0 F 03/03/17 10:00 Pulse Rate 56 L 03/03/17 10:00 Respiratory Rate 18 03/03/17 10:00 Blood Pressure 146/59 03/03/17 10:00 O2 Sat by Pulse Oximetry (%) 99 03/01/17 21:00 Constitutional: Yes: Well Nourished, No Distress, Calm Cardiovascular: Yes: Regular Rate and Rhythm. No: Gallop, Murmur, Rub Respiratory: Yes: Regular, CTA Bilaterally. No: Rales, Rhonchi, Wheezes Gastrointestinal: Yes: Normal Bowel Sounds, Soft. No: Distention, Tenderness Extremities: Yes: WNL Edema: No Labs: CBC, BMP 03/02/17 19:20 03/02/17 19:20 INR, PTT INR 0.91 (0.82-1.09) 02/24/17 12:15 Problem List - Problems (1) Complicated UTI (urinary tract infection) Code(s): N39.0 - URINARY TRACT INFECTION, SITE NOT SPECIFIED (2) Rapid atrial fibrillation Code(s): I48.91 - UNSPECIFIED ATRIAL FIBRILLATION (3) Elevated troponin I level Code(s): R74.8 - ABNORMAL LEVELS OF OTHER SERUM ENZYMES (4) Chronic pain Code(s): G89.29 - OTHER CHRONIC PAIN Qualifiers: Chronic pain type: chronic pain syndrome Qualified Code(s): G89.4 - Chronic pain syndrome (5) Paraplegia Code(s): G82.20 - PARAPLEGIA, UNSPECIFIED Assessment/Plan (1) Complicated UTI (urinary tract infection) Assessment/Plan: -finished full course of antibiotics -stable for discharge from this standpoint Code(s): N39.0 - URINARY TRACT INFECTION, SITE NOT SPECIFIED (2) Rapid atrial fibrillation Assessment/Plan: -cardiology note reviewed -does not need AC -currently in sinus rhythm, bradycardic -continue metoprolol Code(s): I48.91 - UNSPECIFIED ATRIAL FIBRILLATION (3) Elevated troponin I level Assessment/Plan: -continue current management Code(s): R74.8 - ABNORMAL LEVELS OF OTHER SERUM ENZYMES (4) Chronic pain Assessment/Plan: -continue current management Code(s): G89.29 - OTHER CHRONIC PAIN Qualifiers: Chronic pain type: chronic pain syndrome Qualified Code(s): G89.4 - Chronic pain syndrome (5) Paraplegia Assessment/Plan: -chronic Code(s): G82.20 - PARAPLEGIA, UNSPECIFIED (6)Diarrhea -suspect secondary to lactulose -however since on antibiotics and had increase in WBC, will check c. diff -if negative, discharge tomorrow
[2017-03-03] MEDS: diazePAM 5 MG TABLET PO PRN (21:56)
[2017-03-04] MEDS: morphine SULFATE 10 MG/5 ML UNIT-DOSE CUP PO PRN ×2 (02:44→10:34)
[2017-03-04] MEDS: POLYETHYLENE GLYCOL 3350 119 GM BTL PO SCH ×2 (06:26→14:38)
[2017-03-04 07:43] VITALS: BP 154/64; PULSE 54; TEMP 98
--- NOTE | 2017-03-04 10:14 | DS ---
Physical Examination Vital Signs: Vital Signs Temperature 98 F 03/04/17 07:42 Pulse Rate 54 L 03/04/17 07:42 Respiratory Rate 20 03/04/17 07:42 Blood Pressure 154/64 03/04/17 07:42 O2 Sat by Pulse Oximetry (%) 96 03/03/17 21:00 Constitutional: Yes: Well Nourished, No Distress, Calm Cardiovascular: Yes: Regular Rate and Rhythm. No: Gallop, Murmur, Rub Respiratory: Yes: Regular, CTA Bilaterally. No: Rales, Rhonchi, Wheezes Gastrointestinal: Yes: Normal Bowel Sounds, Soft. No: Distention, Tenderness Extremities: Yes: WNL Edema: No Labs: CBC, BMP 03/02/17 19:20 03/02/17 19:20 Discharge Summary Reason For Visit: ACUTE UTI Current Active Problems Acute UTI (Acute) Demand ischemia (Acute) Elevated troponin I level (Acute) Neurogenic bladder (Acute) PAF (paroxysmal atrial fibrillation) (Acute) Rapid atrial fibrillation (Acute) Constipation (Chronic) Hospital Course: (1) Complicated UTI (urinary tract infection) Code(s): N39.0 - URINARY TRACT INFECTION, SITE NOT SPECIFIED (2) Rapid atrial fibrillation Code(s): I48.91 - UNSPECIFIED ATRIAL FIBRILLATION (3) Elevated troponin I level Code(s): R74.8 - ABNORMAL LEVELS OF OTHER SERUM ENZYMES (4) Chronic pain Code(s): G89.29 - OTHER CHRONIC PAIN Qualifiers: Chronic pain type: chronic pain syndrome Qualified Code(s): G89.4 - Chronic pain syndrome (5) Paraplegia Code(s): G82.20 - PARAPLEGIA, UNSPECIFIED Mr Valenzuela is a 61 year old male who presented with complicated UTI and had an episode of rapid afib and troponin leak secondary to this. He was admitted to the hospital and seen by ID. He finished a full course of zosyn. He was seen by cardiology and he spontaneously converted to sinus rhythm. His CHADS-Vasc score was zero so does not need anticoagulation. He is to be maintained on metoprolol. He had some constipation that was relieved by lactulose, but this caused diarrhea. This has resolved. Currently he is doing well and is stable for discharge. 32 minutes spent in preparation of this discharge Condition: Stable - Instructions Diet, Activity, Other Instructions: resume previous diet and activity Referrals: Juan Manuel Kang MD [Staff Physician] - Disposition: [facility]/HOME HEALTH CARE - Home Medications Comprehensive Discharge Medication List: Ambulatory Orders Diazepam [Valium] 10 mg PO TID PRN #30 tablet MDD 30mg 09/16/16 Morphine 10 mg/5 ml Liquid [Morphine 10 mg/5 mL Liquid -] 1 mg PO Q4H PRN Aspirin Coated [Ecotrin -] 81 mg PO DAILY #30 tab.ec 03/03/17 Metoprolol Succinate [Toprol XL -] 25 mg PO DAILY #30 tab.sr 03/03/17 Polyethylene Glycol 3350 [Miralax 119 gm Btl -] 17 gm PO TID #1 bottle 03/03/17 Ranitidine [Zantac -] 150 mg PO BID #60 tablet 03/03/17 Simethicone [Mylicon -] 80 mg PO QID PRN #60 tab.chew 03/03/17
[2017-03-04] MEDS: METOPROLOL SUCCINATE 25 MG TAB.SR.24H (FP) PO SCH (10:33)
[2017-03-04] MEDS: ASPIRIN COATED 81 MG TABLET.EC PO SCH (10:33)
[2017-03-04] MEDS: RANITIDINE HCL 150 MG TABLET (FP) PO SCH (10:33)
[2017-03-04] MEDS: diazePAM 5 MG TABLET PO PRN (10:33)
[2017-03-04] MEDS: HEPARIN NA (PORCINE) 5,000 UNITS/ML 1ML VIAL SQ SCH (10:34)
--- NOTE | 2017-03-04 11:43 | PN ---
Progress Note, Physician Chief Complaint: Events noted Not in distress History of Present Illness: Patient was seen and examined. Awake and alert. Chart was reviewed Denies chest pain, SOB or palpitations - Current Medication List Current Medications: Active Medications Acetaminophen (Tylenol -) 650 mg PO Q6H PRN PRN Reason: FEVER OR PAIN Aspirin (Ecotrin -) 81 mg PO DAILY [facility] Last Admin: 03/04/17 10:33 Dose: 81 mg Diazepam (Valium -) 10 mg PO Q8H PRN PRN Reason: MUSCLE SPASMS Last Admin: 03/04/17 10:33 Dose: 10 mg Heparin Sodium (Porcine) (Heparin -) 5,000 unit SQ BID [facility] Last Admin: 03/04/17 10:34 Dose: Not Given Metoprolol Succinate (Toprol Xl -) 25 mg PO DAILY [facility] Last Admin: 03/04/17 10:33 Dose: 25 mg Morphine Sulfate (Morphine 10 Mg/5 Ml Liquid) 4 mg PO Q4H PRN PRN Reason: PAIN Last Admin: 03/04/17 10:34 Dose: 4 mg Polyethylene Glycol (Miralax (For Daily Use) -) 17 gm PO TID [facility] Last Admin: 03/04/17 06:26 Dose: Not Given Ranitidine HCl (Zantac -) 150 mg PO BID [facility] Last Admin: 03/04/17 10:33 Dose: 150 mg Simethicone (Mylicon -) 80 mg PO QID PRN PRN Reason: DYSPEPSIA Last Admin: 02/27/17 22:09 Dose: 80 mg - Objective Vital Signs: Vital Signs Temperature 98 F 03/04/17 07:42 Pulse Rate 54 L 03/04/17 07:42 Respiratory Rate 20 03/04/17 07:42 Blood Pressure 154/64 03/04/17 07:42 O2 Sat by Pulse Oximetry (%) 96 03/03/17 21:00 Neck: Yes: Supple Cardiovascular: Yes: Regular Rate and Rhythm, S1, S2. No: Murmur Respiratory: Yes: CTA Bilaterally Gastrointestinal: Yes: Normal Bowel Sounds, Soft. No: Tenderness Edema: No Problem List - Problems (1) Demand ischemia Code(s): I24.8 - OTHER FORMS OF ACUTE ISCHEMIC HEART DISEASE (2) Elevated troponin I level Code(s): R74.8 - ABNORMAL LEVELS OF OTHER SERUM ENZYMES (3) Neurogenic bladder Code(s): N31.9 - NEUROMUSCULAR DYSFUNCTION OF BLADDER, UNSPECIFIED (4) Paraplegia Code(s): G82.20 - PARAPLEGIA, UNSPECIFIED (5) PAF (paroxysmal atrial fibrillation) Code(s): I48.0 - PAROXYSMAL ATRIAL FIBRILLATION (6) UTI (urinary tract infection) Code(s): N39.0 - URINARY TRACT INFECTION, SITE NOT SPECIFIED Qualifiers: Urinary tract infection type: site unspecified Hematuria presence: without hematuria Qualified Code(s): N39.0 - Urinary tract infection, site not specified Assessment/Plan 1. Paroxysmal atrial fibrillation, currently in sinus rhythm [id number] score of 0-1 2. CAD with evidence of demand ischemic injury, troponin trending down 3. Neurogenic bladder with chronic UTI 4. Paraplegia referable to T2 compression 5. Chronic pain syndrome PLAN: 1. Continue Toprol XL 25 mg qd and ASA 81 mg qd 2. Given low [id number] score, patient would not benefit from anticoagulation 3. Completed antibiotic course per ID 4. DVT and GI prophylaxis Discharge planning Samuel Carrera MD
--- NOTE | 2017-03-04 13:34 | PN ---
Progress Note, Physician History of Present Illness: stable no new issues - Current Medication List Current Medications: Active Medications Acetaminophen (Tylenol -) 650 mg PO Q6H PRN PRN Reason: FEVER OR PAIN Aspirin (Ecotrin -) 81 mg PO DAILY [facility] Last Admin: 03/04/17 10:33 Dose: 81 mg Diazepam (Valium -) 10 mg PO Q8H PRN PRN Reason: MUSCLE SPASMS Last Admin: 03/04/17 10:33 Dose: 10 mg Heparin Sodium (Porcine) (Heparin -) 5,000 unit SQ BID [facility] Last Admin: 03/04/17 10:34 Dose: Not Given Metoprolol Succinate (Toprol Xl -) 25 mg PO DAILY [facility] Last Admin: 03/04/17 10:33 Dose: 25 mg Morphine Sulfate (Morphine 10 Mg/5 Ml Liquid) 4 mg PO Q4H PRN PRN Reason: PAIN Last Admin: 03/04/17 10:34 Dose: 4 mg Polyethylene Glycol (Miralax (For Daily Use) -) 17 gm PO TID [facility] Last Admin: 03/04/17 06:26 Dose: Not Given Ranitidine HCl (Zantac -) 150 mg PO BID [facility] Last Admin: 03/04/17 10:33 Dose: 150 mg Simethicone (Mylicon -) 80 mg PO QID PRN PRN Reason: DYSPEPSIA Last Admin: 02/27/17 22:09 Dose: 80 mg - Objective Vital Signs: Vital Signs Temperature 98 F 03/04/17 07:42 Pulse Rate 54 L 03/04/17 07:42 Respiratory Rate 20 03/04/17 07:42 Blood Pressure 154/64 03/04/17 07:42 O2 Sat by Pulse Oximetry (%) 96 03/03/17 21:00 Constitutional: Yes: No Distress, Calm Cardiovascular: Yes: Regular Rate and Rhythm Respiratory: Yes: Regular, CTA Bilaterally Gastrointestinal: Yes: Normal Bowel Sounds, Soft Musculoskeletal: Yes: Other Extremities: Yes: Other Neurological: Yes: Alert, Oriented Psychiatric: Yes: Alert, Oriented Labs: CBC, BMP 03/02/17 19:20 03/02/17 19:20 INR, PTT INR 0.91 (0.82-1.09) 02/24/17 12:15 Assessment/Plan roble List - Problems (1) Acute UTI Code(s): N39.0 - URINARY TRACT INFECTION, SITE NOT SPECIFIED (2) Bladder pain Code(s): R39.89 - OTHER SYMPTOMS AND SIGNS INVOLVING THE GENITOURINARY SYSTEM (3) Chronic pain Code(s): G89.29 - OTHER CHRONIC PAIN (4) Paraplegia Code(s): G82.20 - PARAPLEGIA, UNSPECIFIED (5) Constipation Code(s): K59.00 - CONSTIPATION, UNSPECIFIED 6 afib plan stable off of abx ct current mgmt
== END 2017-03-04 15:06 | disposition home health service (06) | DRG 690 ==
LOC: JER 14:30 → JERBED 18:19 → J5S 02-23 15:13 → JICU 02-24 21:53 → J8W 02-28 00:06
PROVIDERS: ADMIT Internal Medicine Geriatric Medicine; ATTEND Internal Medicine
DX: N39.0 Urinary tract infection, site not specified (principal); G82.20 Paraplegia, unspecified; I24.8 Other forms of acute ischemic heart disease; N31.9 Neuromuscular dysfunction of bladder, unspecified; M54.9 Dorsalgia, unspecified; R39.89 Other symptoms and signs involving the genitourinary system; K59.00 Constipation, unspecified; I48.0 Paroxysmal atrial fibrillation; I95.89 Other hypotension; B96.5 Pseudomonas (aeruginosa) (mallei) (pseudomallei) as the cause of diseases classified elsewhere; I25.10 Atherosclerotic heart disease of native coronary artery without angina pectoris; S22.02 Fracture of second thoracic vertebra; R74.8 Abnormal levels of other serum enzymes; G89.4 Chronic pain syndrome; R19.7 Diarrhea, unspecified; V00-Y99 External causes of morbidity
CPT/HCPCS: 36415; 80048; 80053; 81003; 81015; 82550; 82553; 83605; 83690; 83735; 84100; 84132; 84443; 84484; 85025; 85610; 85730; 87040; 87086; 87186; 93005; 93010; 93306-TC; 96372; 99282-25; 99284-25; J1644

== ENCOUNTER 2017-03-18 09:15 | Emergency (ER) | payer OTHER, BC ==
[2017-03-18 09:46] VITALS: BMI 16.7
--- NOTE | 2017-03-18 09:49 | PDOC ---
History of Present Illness - General History Source: Patient Exam Limitations: No Limitations - History of Present Illness Initial Comments: 03/18/17 09:50 The patient is a 61 year old male, with a significant past medical history of paraplegia (severed T2-T4 secondary to falling from 30 ft butch), recurrent bladder infections, and EtOH abuse who presents to the emergency department with abdominal pain and dysuria. The patient relates having recurrent bladder infections, and notes his symptoms are similar to previous infections. He denies any recent fevers, chills, headache or dizziness. He denies any recent nausea, vomit, diarrhea or constipation. He denies any recent chest pain or shortness of breath. Allergies: NKA Past surgical history: None reported. Social History: See HPI. Marijuana use. 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) HTN: (Hypotension) Hypercholesterolemia: No Liver Disease: No Seizures: No Thyroid Disease: No - Surgical History Abdominal Surgery: No Appendectomy: No Cardiac Surgery: No Cholecystectomy: No Lung Surgery: No Neurologic Surgery: No Orthopedic Surgery: Yes (fracture right wrist s/p fusion) - Immunization History Td Vaccination: No Immunization Up to Date: No - Psycho/Social/Smoking Cessation Hx Anxiety: No Suicidal Ideation: No Smoking Status: No Smoking History: Never smoked Years of Tobacco Use: 0 Have you smoked in the past 12 months: No Number of Cigarettes Smoked Daily: 3 If you are a former smoker, when did you quit?: 1986 Cigars Per Day: 0 Hx Alcohol Use: No Drug/Substance Use Hx: No Substance Use Type: Alcohol Hx Substance Use Treatment: No <Lore Bai - Last Filed: 03/18/17 14:45> - Past Medical History Allergies/Adverse Reactions: Allergies Allergy/AdvReac Type Severity Reaction Status Date / Time No Known Allergies Allergy Verified 03/18/17 09:38 Home Medications: Ambulatory Orders Diazepam [Valium] 10 mg PO TID PRN #30 tablet MDD 30mg 09/16/16 Morphine 10 mg/5 ml Liquid [Morphine 10 mg/5 mL Liquid -] 1 mg PO Q4H PRN Aspirin Coated [Ecotrin -] 81 mg PO DAILY #30 tab.ec 03/03/17 Metoprolol Succinate [Toprol XL -] 25 mg PO DAILY #30 tab.sr 03/03/17 Review of Systems - Review of Systems Able to Perform ROS?: Yes Comments:: 03/18/17 09:50 GENERAL/CONSTITUTIONAL: No: fever, chills, weakness, loss of appetite. HEAD, EYES, EARS, NOSE AND THROAT: No: change in vision, ear pain, discharge, sore throat, throat swelling. CARDIOVASCULAR: No: chest pain, lightheadedness, syncope RESPIRATORY: No: cough, shortness of breath, wheezing, hemoptysis, stridor. GASTROINTESTINAL: +abd pain. No: nausea, vomiting, diarrhea, rectal bleeding, constipation. GENITOURINARY: +dysuria No: hematuria, frequency, urgency, flank pain. MUSCULOSKELETAL: No: back pain, neck pain, joint pain, muscle swelling or pain SKIN : No: lesions, pallor, rash or easy bruising. NEUROLOGIC: No: headache, vertigo, paresthesias, weakness ENDOCRINE: No: unexplained weight gain or loss HEMATOLOGIC/LYMPHATIC: No: anemia, easy bleeding, swelling nodes. <Alverto Mcnamara - Last Filed: 03/18/17 10:51> *Physical Exam - Vital Signs Last Vital Signs Temp Pulse Resp BP Pulse Ox 99 F 60 18 132/74 96 03/18/17 09:36 03/18/17 09:36 03/18/17 09:36 03/18/17 09:36 03/18/17 09:36 - Physical Exam Comments: 03/18/17 09:54 GENERAL: The patient is in no acute distress. Afebrile. HEAD: Normal with no signs of trauma. EYES: PERRLA, EOMI, sclera anicteric, conjunctiva clear. NECK: Normal range of motion, supple without lymphadenopathy, JVD, or masses. LUNGS: Breath sounds equal, clear to auscultation bilaterally. No wheezes, and no crackles. HEART: Regular rate and rhythm, normal S1 and S2 without murmur, rub or gallop. ABDOMEN: Soft, normoactive bowel sounds. Mid abdominal scar Suprapubic tenderness LLQ minimally tender. No flank pain. No guarding, no rebound. No masses palpable. EXTREMITIES: Paraplegic legs wasted bilaterally. Moving upper extremities. NEUROLOGICAL: Cranial nerves II through XII grossly intact. Normal speech. MUSCULOSKELETAL: No CVA tenderness SKIN: Warm, Dry, normal turgor, no rashes or lesions noted. <Alverto Mcnamara - Last Filed: 03/18/17 10:51> - Vital Signs Last Vital Signs Temp Pulse Resp BP Pulse Ox 99 F 60 18 132/74 96 03/18/17 09:36 03/18/17 09:36 03/18/17 09:36 03/18/17 09:36 03/18/17 09:36 <Lore Bai - Last Filed: 03/18/17 14:45> Medical Decision Making - Medical Decision Making 03/18/17 10:[address] Kang, case discussed. <Alverto Mcnamara - Last Filed: 03/18/17 10:51> - Medical Decision Making 03/18/17 11:[address] Kang, who tells me that pt frequently has UTIs, given his urogenic bladder. He follows with Dr. Valdez, and he has been in the hospital multiple times recently. Pt is afebrile. Belly soft; no flank pain. EKG: NSR/kajal 03/18/17 11:38 Pt has a nitrite negative urinalysis with no WBC; small blood. I will send him for spiral CT of kidneys/yreters/bladder 03/18/17 14:44 CT normal. UA normal. Exam normal. Pt feels better and wants to go home. He is awaiting his HHAide to take him home. Pt is currently eating lunch. <Lore Bai - Last Filed: 03/18/17 14:45> *DC/Admit/Observation/Transfer - Attestations Scribe Attestion: 03/18/17 09:50 Documentation prepared by Alverto Mcnamara, acting as medical technicians for Lore Bai MD. <Alverto Mcnamara - Last Filed: 03/18/17 10:51> - Discharge Dispostion Admit: No <Lore Bai - Last Filed: 03/18/17 14:45> Diagnosis at time of Disposition: Neurogenic bladder, Abdominal pain in male - Discharge Dispostion Disposition: HOME Condition at time of disposition: Stable - Referrals Referrals: Juan Manuel Kang MD [Primary Care Provider] - - Patient Instructions Printed Discharge Instructions: Neurogenic Bladder -- Adult
[2017-03-18 11:01] LABS: URINE APPEARANCE CLEAR; URINE BILIRUBIN NEGATIVE (NEGATIVE); URINE COLOR STRAW; URINE GLUCOSE (UA) NEGATIVE (NEGATIVE); URINE KETONE NEGATIVE (NEGATIVE); URINE LEUK ESTERASE NEGATIVE (NEGATIVE); URINE NITRITE NEGATIVE (NEGATIVE); URINE PROTEIN NEGATIVE (NEGATIVE); URINE UROBILINOGEN NEGATIVE E.U./dl (0.2-1.0)
[2017-03-18 11:28] LABS: URINE BLOOD 1+ (NEGATIVE)
[2017-03-18 11:29] LABS: URINE RBC 1 /hpf (0-3); URINE WBC <1 /hpf (3-5)
[2017-03-18] MEDS ORDERED: KETOROLAC TROMETHAMINE 30 MG/1 ML VIAL IM ONE (11:37)
[2017-03-18] MEDS ORDERED: KETOROLAC TROMETHAMINE 30 MG/1 ML VIAL ONE (11:47)
[2017-03-18] MEDS ORDERED: KETOROLAC TROMETHAMINE 60 MG/2 ML VIAL IM ONE (12:32)
--- NOTE | 2017-03-18 13:07 | EKG ---
Test Reason : Blood Pressure : / mmHG Vent. Rate : 059 BPM Atrial Rate : 059 BPM P-R Int : 146 ms QRS Dur : 086 ms QT Int : 416 ms P-R-T Axes : 065 071 083 degrees QTc Int : 411 ms SINUS BRADYCARDIA QS IN aVL WHEN COMPARED WITH ECG OF 24-FEB-2017 20:36, NO SIGNIFICANT CHANGE WAS FOUND Confirmed by JENIFFER PICKERING MD ([id number] on 03/18/2017 1:06:35 PM Referred By: Confirmed By:JENIFFER PICKERING MD
[2017-03-18 17:50] VITALS: BP 122/55; PULSE 59; TEMP 97.9
== END 2017-03-18 17:35 | disposition home or self-care (01) ==
LOC: JER 09:15
PROC: 3E0233Z Introduction of Anti-inflammatory into Muscle, Percutaneous Approach (ICD-10-PCS; principal; 2017-03-18)
DX: N31.8 Other neuromuscular dysfunction of bladder (principal); R10.84 Generalized abdominal pain; Z87.440 Personal history of urinary (tract) infections; S24.152S Other incomplete lesion at T2-T6 level of thoracic spinal cord, sequela; G82.21 Paraplegia, complete; W17.89XS Other fall from one level to another, sequela
CPT/HCPCS: 74176; 81003; 81015; 87086; 93005; 93010; 96372; 99284-25

== ENCOUNTER 2017-04-01 08:21 | Emergency (ER) | payer OTHER, BC ==
--- NOTE | 2017-04-01 08:32 | PDOC ---
History of Present Illness - General Chief Complaint: Chest Pain Stated Complaint: CHEST PAIN Time Seen by Provider: 04/01/17 08:32 History Source: Patient Exam Limitations: Language Barrier - History of Present Illness Initial Comments: 04/01/17 09:11 CC: Acute onset of momentary chest pain Patient is a 61 y.o. male with a PMH of Afib (rate controlled on Metoprolol), multiple admissions for UTI and T2 paraplegia who presents today with a intermittent (2 minutes) of chest pain this morning at approximately 7:30 a.m. Patient states he was laying in bed when he felt a "sharp stab" pain in his L chest near his axilla. Patient states the pain was intense for 2-3 second and resolved over two minutes. Patient denies any associated palpitations, diaphoresis, vomiting or nausea. Patient states he has never experienced this pain in his chest on prior occasion however the pain is strikingly similar to pains he has experienced in his B/L LE. Patient denies any recent medication changes, travel or life stresses. Timing/Duration: momentarily Severity: severe Past History - Past Medical History Allergies/Adverse Reactions: Allergies Allergy/AdvReac Type Severity Reaction Status Date / Time No Known Allergies Allergy Verified 04/01/17 08:31 Home Medications: Ambulatory Orders Diazepam [Valium] 10 mg PO TID PRN #30 tablet MDD 30mg 09/16/16 Morphine 10 mg/5 ml Liquid [Morphine 10 mg/5 mL Liquid -] 1 mg PO Q4H PRN Aspirin Coated [Ecotrin -] 81 mg PO DAILY #30 tab.ec 03/03/17 Metoprolol Succinate [Toprol XL -] 25 mg PO DAILY #30 tab.sr 03/03/17 Anemia: No Asthma: No Cancer: No Cardiac Disorders: No CVA: No COPD: Yes CHF: No Dementia: No Diabetes: No GI Disorders: No Disorders: Yes (Recurrent UTI, 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) HTN: (Hypotension) Hypercholesterolemia: No Liver Disease: No Seizures: No Thyroid Disease: No - Surgical History Abdominal Surgery: No Appendectomy: No Cardiac Surgery: No Cholecystectomy: No Lung Surgery: No Neurologic Surgery: No Orthopedic Surgery: Yes (fracture right wrist s/p fusion) - Immunization History Td Vaccination: No Immunization Up to Date: No - Psycho/Social/Smoking Cessation Hx Anxiety: No Suicidal Ideation: No Smoking Status: No Smoking History: Never smoked Years of Tobacco Use: 0 Have you smoked in the past 12 months: No Number of Cigarettes Smoked Daily: 3 If you are a former smoker, when did you quit?: 1986 Cigars Per Day: 0 Hx Alcohol Use: Yes (OCCASIONALLY) Drug/Substance Use Hx: No Substance Use Type: Alcohol Hx Substance Use Treatment: No Review of Systems - Review of Systems Constitutional: No: Chills, Diaphoresis, Fever, Malaise HEENTM: No: Blurred Vision, Double Vision, Hearing Loss, Throat Pain Respiratory: No: Cough, Orthopnea, SOB with Exertion, SOB at Rest Cardiac (ROS): Yes: Chest Pain. No: Edema, Lightheadedness, Palpitations, Syncope ABD/GI: No: Constipated, Diarrhea, Nausea, Vomiting Musculoskeletal: No: Joint Swelling, Muscle Pain, Neck Pain, Joint Stiffness Neurological: No: Headache, Numbness, Tingling, Tremors Psychiatric: No: Anxiety, Depression *Physical Exam - Physical Exam General Appearance: Yes: Appropriately Dressed, Thin HEENT: positive: EOMI, FRANCIE Neck: positive: Trachea midline, Supple Respiratory/Chest: positive: Lungs Clear, Normal Breath Sounds Cardiovascular: positive: Regular Rhythm, Regular Rate, S1, S2 Gastrointestinal/Abdominal: positive: Flat, Soft Musculoskeletal: positive: Normal Inspection Integumentary: positive: Normal Color, Dry, Warm Neurologic: positive: Fully Oriented, Alert, Other (T2 paraplegia) ED Treatment Course - LABORATORY CBC & Chemistry Diagram: 04/01/17 09:02 04/01/17 09:02 Medical Decision Making - Medical Decision Making 04/01/17 09:34 Patient is a 61 y.o. male who presents for a momentary onset of chest pain this morning. Differential diagnosis includes ACS (less likely given intermittent nature of pain and no associated n/v/diaphoresis) vs muscle spasm (patient notes pain was similar to previous muscle spasms in his LE) vs GERD vs. apical pneumonia. Repeat EKG showed sinus bradycardia similar to EKG's on previous admission and Troponin was (-) x1. Chest XR showed no changes from previous imaging and there were no indications of apical pneumonia. Patient was discharged with instruction to follow up with his PCP and return to the ED should he experience a repeat of his chest pain, shortness of breath, fever, chills or severe discomfort. *DC/Admit/Observation/Transfer Diagnosis at time of Disposition: Muscle spasm - Discharge Dispostion Admit: No - Referrals Referrals: Juan Manuel Kang MD [Primary Care Provider] - - Patient Instructions Printed Discharge Instructions: DI for Atypical Chest Pain, DI for Chest Pain Additional Instructions: Please return to the Emergency Department should you experience a repeat of your chest pain, shortness of breath, fever, chills or severe discomfort. Please follow up with your PCP within 1 week and let them know you were evaluated in the Emergency Department for chest pain. - Attestations Physician Attestion: 04/01/17 10:45 I, Dr. Madonna Santamaria, attest that this document has been prepared under my direction and personally reviewed by me in its entirety. I further attest, that it accurately reflects all work, treatment, procedures and medical decision -making performed by me.
[2017-04-01 08:36] VITALS: TEMP 98.4; BMI 17.2
[2017-04-01 09:19] LABS: MCH 30.1 pg (25.7-33.7); MCHC 33.8 g/dl (32.0-35.9); MEAN CELL VOLUME 89.1 fl (80-96); MEAN PLT VOLUME 8.7 fl (7.5-11.1); PLATELET COUNT 301 K/MM3 (134-434); RDW 17.2 % (11.9-15.9)
--- NOTE | 2017-04-01 09:40 | PDOC ---
Attending Attestation - Resident Resident Name: RosalioMadonna - ED Attending Attestation I have performed the following: I have examined & evaluated the patient, The case was reviewed & discussed with the resident, I agree w/resident's findings & plan, Exceptions are as noted - HPI HPI: 04/01/17 09:35 61y/o M with history of paraplegia p/w L chest pain acutely this morning. Was lying in bed, felt a sudden onset of upper L chest muscle spasm without any associated n/v/diaphoresis/sob/palp. The pain lasted less than 1 minute then resolved. It felt identical to his usual muscle spasms that he has throughout his body, but because it was localized to the chest, he presents for evaluation. Asx now, wants to go home. no f/c/cough. - Physicial Exam PE: 04/01/17 09:40 VSS well appearing, alert and conversant, paraplegia cv/pulm exam wnl - Medical Decision Making 04/01/17 09:42 Patient seen and evaluated with the resident. I agree with the overall evaluation, assessment, and management with the following summary of visit: 61-year-old male with history of paraplegia presents with a fleeting left upper chest pain, similar to his typical muscle spasms, not associated with any other cardiopulmonary complaints and now completely resolved. Very atypical for ACS, seems more likely muscular. Rule out underlying lung pathology. EKG is unchanged from prior Check labs Chest x-ray Reassess and dispo Heart Score/ECG Review #1 General ECG Interpretation: Sinus Rhythm, Normal Rate, Normal Intervals, No acute ischemic changes (isolated TWI AVL) Compared to previous ECG there are: No significant change
[2017-04-01 09:42] LABS: ANION GAP 7 (8-16); CALCIUM 8.5 mg/dL (8.5-10.1); CO2 29 mmol/L (21-32); CREATININE 0.5 mg/dL (0.7-1.3); GLUCOSE,RANDOM 79 mg/dL (74-106)
[2017-04-01 09:44] LABS: TROPONIN I < 0.02 ng/ml (0.00-0.05)
[2017-04-01 09:49] LABS: BASOPHIL 0.3 % (0-2.0); EOSINOPHIL 3.7 % (0-4.5); NEUTROPHILS 69.9 % (42.8-82.8)
[2017-04-01 11:24] VITALS: BP 135/68; PULSE 88
--- NOTE | 2017-04-01 13:54 | EKG ---
Test Reason : Blood Pressure : / mmHG Vent. Rate : 052 BPM Atrial Rate : 052 BPM P-R Int : 150 ms QRS Dur : 084 ms QT Int : 430 ms P-R-T Axes : 069 071 086 degrees QTc Int : 399 ms SINUS BRADYCARDIA QS IN aVL WITH T WAVE INVERSIOS WHEN COMPARED WITH ECG OF 18-MAR-2017 09:34,,NO MAJOR CHANGES SEEN CORRELATE CLINICALLY Confirmed by JENIFFER PICKERING MD ([id number]) on 04/01/2017 1:54:05 PM Referred By: Confirmed By:JENIFFER PICKERING MD
== END 2017-04-01 12:10 | disposition home or self-care (01) ==
LOC: JER 08:21
DX: M62.838 Other muscle spasm (principal); Z87.440 Personal history of urinary (tract) infections; S24.152S Other incomplete lesion at T2-T6 level of thoracic spinal cord, sequela; G82.21 Paraplegia, complete; W17.89XS Other fall from one level to another, sequela
CPT/HCPCS: 36415; 71010-TC; 80048; 82550; 84484; 85025; 93005; 93010; 99285-25

== ENCOUNTER 2017-04-03 06:55 | Emergency (ER) | payer OTHER, BC ==
[2017-04-03 06:58] VITALS: BMI 19.4
--- NOTE | 2017-04-03 07:42 | PDOC ---
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 Patient states the pain started at rest and only lasted a few seconds and then resolved completely. Patient denies any recent history of similar pain, denies any fever , chills, diaphoresis, palpitations, shortness of breathe, abdominal pain, nausea and vomiting. Chart review shows patient was here two days ago with similar complaint. Past History - Past Medical History Allergies/Adverse Reactions: Allergies Allergy/AdvReac Type Severity Reaction Status Date / Time No Known Allergies Allergy Verified 04/03/17 06:56 Home Medications: Ambulatory Orders Diazepam [Valium] 10 mg PO TID PRN #30 tablet MDD 30mg 09/16/16 Morphine 10 mg/5 ml Liquid [Morphine 10 mg/5 mL Liquid -] 1 mg PO Q4H PRN Aspirin Coated [Ecotrin -] 81 mg PO DAILY #30 tab.ec 03/03/17 Metoprolol Succinate [Toprol XL -] 25 mg PO DAILY #30 tab.sr 03/03/17 Anemia: No Asthma: No Cancer: No Cardiac Disorders: No CVA: No COPD: Yes CHF: No Dementia: No Diabetes: No GI Disorders: No Disorders: Yes (Recurrent UTI, 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) HTN: (Hypotension) Hypercholesterolemia: No Liver Disease: No Seizures: No Thyroid Disease: No - Surgical History Abdominal Surgery: No Appendectomy: No Cardiac Surgery: No Cholecystectomy: No Lung Surgery: No Neurologic Surgery: No Orthopedic Surgery: Yes (fracture right wrist s/p fusion) - Immunization History Td Vaccination: No Immunization Up to Date: No - Psycho/Social/Smoking Cessation Hx Anxiety: No Suicidal Ideation: No Smoking Status: No Smoking History: Never smoked Years of Tobacco Use: 0 Have you smoked in the past 12 months: No Number of Cigarettes Smoked Daily: 3 If you are a former smoker, when did you quit?: 1985 Cigars Per Day: 0 Information on smoking cessation initiated: No Hx Alcohol Use: No Drug/Substance Use Hx: No Substance Use Type: Alcohol Hx Substance Use Treatment: No Review of Systems - Review of Systems Able to Perform ROS?: Yes Is the patient limited French proficient: No Constitutional: No: Chills, Diaphoresis, Fever, Malaise, Weakness Respiratory: No: Cough, Shortness of Breath Cardiac (ROS): No: Chest Pain, Palpitations, Syncope, Chest Tightness ABD/GI: No: Constipated, Diarrhea, Nausea, Vomiting Musculoskeletal: Yes: Other (No acute changes) Neurological: No: Headache, Weakness, Dizziness Psychiatric: No: Anxiety, Sleep Pattern Change *Physical Exam - Vital Signs Last Vital Signs Temp Pulse Resp BP Pulse Ox 56 L 14 125/90 98 04/03/17 06:56 04/03/17 06:56 04/03/17 06:56 04/03/17 06:56 - Physical Exam General Appearance: Yes: Nourished, Thin. No: Apparent Distress HEENT: positive: EOMI, FRANCIE, Normal Voice Respiratory/Chest: positive: Lungs Clear, Normal Breath Sounds. negative: Chest Tender, Respiratory Distress, Crackles, Rales, Rhonchi, Stridor, Wheezing Cardiovascular: positive: Regular Rhythm, Regular Rate, Other (Heart sounds auscultated on right side (patient dextrocardia)). negative: JVD, Murmur Gastrointestinal/Abdominal: positive: Normal Bowel Sounds, Other (Large central abdominal scar (well healed)). negative: Tender, Flat (Altered anatomy), Distended, Guarding, Rebound Musculoskeletal: positive: Other (Parapelegia below T2, Significant muscle wasting LE b/l, cool, no edema or erythema, no cyanosis) ED Treatment Course - LABORATORY CBC & Chemistry Diagram: 04/03/17 08:12 04/03/17 08:12 Medical Decision Making - Medical Decision Making 04/03/17 07:42 61 year old male paraplegic with dextrocardia presenting with one incident of sharp stabbing left-sided chest pain that lasted seconds this morning and is now resolved. Ddx includes but not limited to PE, ACS, muscle cramp, anxiety EKG Standard labs Cardiac enzymes and d-dimer monitor and reevaluate Review of CXR from 04/01/2017 shows dextrocardia, possibly post surgical from fall 04/03/17 09:26 EKG: Sinus rhythm at 60 BPM, normal axes and intervals, no ST elevations/ depressions/flipped T waves. No significant changes from 04/01/2017 Elevated d-dimer 536 (age appropriate < 630) CBC WBC 7.5 K/mm3 (4.0-10.0) 04/03/17 08:12 RBC 5.03 M/mm3 (4.00-5.60) 04/03/17 08:12 Hgb 15.1 GM/dL (11.7-16.9) 04/03/17 08:12 Hct 45.5 % (35.4-49) 04/03/17 08:12 MCV 90.5 fl (80-96) 04/03/17 08:12 MCH 30.1 pg (25.7-33.7) 04/03/17 08:12 MCHC 33.2 g/dl (32.0-35.9) 04/03/17 08:12 RDW 16.7 % (11.9-15.9) H 04/03/17 08:12 Plt Count 321 K/MM3 (134-434) 04/03/17 08:12 MPV 9.4 fl (7.5-11.1) 04/03/17 08:12 Neutrophils % 71.4 % (42.8-82.8) 04/03/17 08:12 Lymphocytes % 15.3 % (8-40) 04/03/17 08:12 Monocytes % 9.0 % (3.8-10.2) 04/03/17 08:12 Eosinophils % 4.1 % (0-4.5) 04/03/17 08:12 Basophils % 0.2 % (0-2.0) 04/03/17 08:12 CBC wnl CMP Sodium 135 mmol/L (136-145) L 04/03/17 08:12 Potassium 4.1 mmol/L (3.5-5.1) 04/03/17 08:12 Chloride 98 mmol/L (98-107) 04/03/17 08:12 Carbon Dioxide 29 mmol/L (21-32) 04/03/17 08:12 Anion Gap 8 (8-16) 04/03/17 08:12 BUN 10 mg/dL (7-18) 04/03/17 08:12 Creatinine 0.6 mg/dL (0.7-1.3) L 04/03/17 08:12 Creat Clearance w eGFR > 60 (>60) 04/03/17 08:12 Random Glucose 81 mg/dL (74-106) 04/03/17 08:12 Calcium 9.1 mg/dL (8.5-10.1) 04/03/17 08:12 Total Bilirubin 0.8 mg/dL (0.2-1.0) D 04/03/17 08:12 AST 26 U/L (15-37) D 04/03/17 08:12 ALT 24 U/L (12-78) D 04/03/17 08:12 Alkaline Phosphatase 152 U/L (45-117) H D 04/03/17 08:12 Creatine Kinase 69 IU/L (39-308) 04/03/17 08:12 Troponin I < 0.02 ng/ml (0.00-0.05) 04/03/17 08:12 Total Protein 7.9 g/dl (6.4-8.2) 04/03/17 08:12 Albumin 3.5 g/dl (3.4-5.0) 04/03/17 08:12 Grossly normal with only mild hyponatremia and alk phos elevation that are non concerning. Troponin <0.02 04/03/17 09:27 Patient states he is not having any pain, does not want any treatment and would like to go home Vitals within normal limits Discharged with return precautions. *DC/Admit/Observation/Transfer Diagnosis at time of Disposition: Muscle spasm - Discharge Dispostion Disposition: HOME Condition at time of disposition: Improved Admit: No - Referrals Referrals: Juan Manuel Kang MD [Primary Care Provider] - - Patient Instructions Additional Instructions: Thank you for trusting us with your health care today. I hope you were astisified with the care we provided. As we discussed, the tests we performed today were to rule out the most concerning causes of chest pain and did not indicate a serious acute problem. However, you need to follow up with your Dr. Kang in the next 1 week and let him know you were evaluated in the Emergency Department for chest pain. Please return to the Emergency Department if you experience new or worsening chest pain, shortness of breath, fever, chills or severe discomfort. If it is significantly worse, call 911 immediately. - Attestations Physician Attestion: 04/03/17 09:40 I, Dr. George Rogers, attest that this document has been prepared under my direction and personally reviewed by me in its entirety. I further attest, that it accurately reflects all work, treatment, procedures and medical decision -making performed by me.
[2017-04-03 08:43] LABS: BASOPHIL 0.2 % (0-2.0); EOSINOPHIL 4.1 % (0-4.5); MCH 30.1 pg (25.7-33.7); MCHC 33.2 g/dl (32.0-35.9); MEAN CELL VOLUME 90.5 fl (80-96); MEAN PLT VOLUME 9.4 fl (7.5-11.1); NEUTROPHILS 71.4 % (42.8-82.8); PLATELET COUNT 321 K/MM3 (134-434); RDW 16.7 % (11.9-15.9); WHITE BLOOD COUNT 7.5 K/mm3 (4.0-10.0)
[2017-04-03 09:05] LABS: ALBUMIN 3.5 g/dl (3.4-5.0); ANION GAP 8 (8-16); BILIRUBIN,TOTAL 0.8 mg/dL (0.2-1.0); CALCIUM 9.1 mg/dL (8.5-10.1); CO2 29 mmol/L (21-32); CREATININE 0.6 mg/dL (0.7-1.3); GLUCOSE,RANDOM 81 mg/dL (74-106); SGOT/AST 26 U/L (15-37); SGPT/ALT 24 U/L (12-78); TOT PROT 7.9 g/dl (6.4-8.2)
[2017-04-03 09:07] LABS: ALK PHOS 152 U/L (45-117); TROPONIN I < 0.02 ng/ml (0.00-0.05)
--- NOTE | 2017-04-03 09:32 | PDOC ---
Attending Attestation - Resident Resident Name: George Rogers - ED Attending Attestation I have performed the following: I have examined & evaluated the patient, The case was reviewed & discussed with the resident, I agree w/resident's findings & plan, Exceptions are as noted - HPI HPI: 04/03/17 09:29 Agree with the resident's HPI as documented in the electronic medical record. - Physicial Exam PE: 04/03/17 09:29 Agree with the resident's physical examination as documented in the electronic medical record. - Medical Decision Making 04/03/17 09:29 61-year-old male paraplegic status post fall many years ago presents to the emergency Department with complaints of one episode of chest pain that was left sided, sharp and lasting "a few seconds". He denies fevers chills or cough. Differential diagnosis includes but is not limited to: PE, ACS, musculoskeletal pain. Plan: 1. We will do a d-dimerthat is elevated however it is age appropriate when adjusted. 2. He is asymptomatic at this time and does not want pain medication 3. EKG shows normal sinus rhythm at 60 bpm with normal axis, intervals and no acute ST segment changes 4. Observe and reevaluate Addendum: The patient is feeling improved and wants to go home. We'll discharge home. Follow-up with primary care physician and return to the emergency department if symptoms persist, worsen, or new symptoms arise.
[2017-04-03 10:52] VITALS: BP 135/75; PULSE 60; TEMP 98
--- NOTE | 2017-04-03 11:53 | EKG ---
Test Reason : Blood Pressure : / mmHG Vent. Rate : 061 BPM Atrial Rate : 061 BPM P-R Int : 150 ms QRS Dur : 080 ms QT Int : 436 ms P-R-T Axes : 073 074 083 degrees QTc Int : 438 ms POOR DATA QUALITY, INTERPRETATION MAY BE ADVERSELY AFFECTED NORMAL SINUS RHYTHM MINIMAL VOLTAGE CRITERIA FOR LVH, MAY BE NORMAL VARIANT BORDERLINE ECG WHEN COMPARED WITH ECG OF 01-APR-2017 09:19, NO SIGNIFICANT CHANGE WAS FOUND Confirmed by ROCOI NI MD ([id number]) on 04/03/2017 11:52:57 AM Referred By: Confirmed By:ROCIO NI MD
== END 2017-04-03 10:52 | disposition home or self-care (01) ==
LOC: JER 06:55
DX: M62.838 Other muscle spasm (principal); I48.91 Unspecified atrial fibrillation; I95.9 Hypotension, unspecified; G82.21 Paraplegia, complete; S24.152S Other incomplete lesion at T2-T6 level of thoracic spinal cord, sequela; W17.89XS Other fall from one level to another, sequela
CPT/HCPCS: 36415; 80053; 82550; 84484; 85025; 85379; 93005; 93010; 99284-25

== ENCOUNTER 2018-02-20 15:12 | Inpatient (IN) | payer OTHER, BC ==
[2018-02-20] MEDS ORDERED: PIPERACILLIN/TAZOB 3.375 GM 3.375 GM in DEXTROSE 5%-WATER - 50 ML IVPB ONE (16:06)
[2018-02-20] MEDS ORDERED: PIPERACILLIN/TAZOB 3.375 GM 3.375 GM/50 ML BAG IVPB ONE (16:36)
--- NOTE | 2018-02-20 16:54 | PDOC ---
History of Present Illness - General History Source: Patient Exam Limitations: No Limitations - History of Present Illness Initial Comments: 02/20/18 17:55 The patient is a 62 year old male with a significant past medical history of paraplegia, COPD, and recurrent UTIs who presents to the emergency department for evaluation of right foot pain and swelling. The patient reports being discharged yesterday from the hospital on Augmentin but states his right toe has worsened considerably. The patient reports moderate right toe pain. He states he is unable to tell if he has a fever secondary to the right toe pain. The patient denies chest pain, shortness of breath, headache, and dizziness. Denies fevers, chills, nausea, vomiting, diarrhea, and constipation. Denies dysuria, frequency, urgency, and hematuria. Allergies: NKA Past surgical history: Social history: No reported cigarette, alcohol, or drug use. PCP: Dr. 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) HTN: (Hypotension) Hypercholesterolemia: No Liver Disease: No Seizures: No Thyroid Disease: No - Surgical History Abdominal Surgery: No Appendectomy: No Cardiac Surgery: No Cholecystectomy: No Lung Surgery: No Neurologic Surgery: No Orthopedic Surgery: Yes (fracture right wrist s/p fusion) - Immunization History Td Vaccination: No Immunization Up to Date: No - Suicide/Smoking/Psychosocial Hx Smoking Status: No Smoking History: Former smoker Years of Tobacco Use: 0 Have you smoked in the past 12 months: No Number of Cigarettes Smoked Daily: 3 If you are a former smoker, when did you quit?: 1986 Cigars Per Day: 0 Information on smoking cessation initiated: No Hx Alcohol Use: No Drug/Substance Use Hx: No Substance Use Type: None Hx Substance Use Treatment: No <Harley Hanna - Last Filed: 02/20/18 18:25> - Past Medical History Allergies/Adverse Reactions: Allergies Allergy/AdvReac Type Severity Reaction Status Date / Time No Known Allergies Allergy Verified 02/20/18 15:35 Home Medications: Ambulatory Orders Diazepam [Valium] 10 mg PO TID PRN #30 tablet MDD 30mg 09/16/16 Morphine 10 mg/5 ml Liquid [Morphine 10 mg/5 mL Liquid -] 4 mg PO Q4H 02/16/18 Amox-Tr/K Cl [Augmentin - 875Mg Tablet] 1 tab PO BID #14 tablet 02/19/18 Bacitracin - [Bacitracin Topical Ointment -] 1 applic TP DAILY #1 tube 02/19/18 Review of Systems - Review of Systems Able to Perform ROS?: Yes Comments:: A complete review of 10 out of 10 review of systems is taken and is negative apart from what is previously mentioned below and in the HPI. <Jim Ferris - Last Filed: 02/20/18 18:24> *Physical Exam - Vital Signs Last Vital Signs Temp Pulse Resp BP Pulse Ox 98.8 F 84 20 119/83 95 02/20/18 15:36 02/20/18 15:36 02/20/18 15:36 02/20/18 15:36 02/20/18 15:36 - Physical Exam Comments: Vitals: Triage Vital signs reviewed General Appearance: no acute distress, well nourished well developed, Head: Atraumatic, normocephalic Neck: Supple;No Nuchal rigidity Chest Wall: Nontender Cardiac: Regular rate and rhythm, no murmurs, no rubs, no gallops, Lungs: No stridor. No tongue swelling. No wheezing. Clear to auscultation bilateral, good air movement bilaterally, Abdomen: Soft, nondistended, normal bowel sounds, nontender to palpation Extremities: (+)redness to all 5 toes. (+)Break down of skin on great toe, warm. Full range of motion to all extremities, Skin: Warm and dry, no rashes or lesions, no petechiae Psych: normal mood, normal affect <Jim Ferris - Last Filed: 02/20/18 18:24> - Vital Signs Last Vital Signs Temp Pulse Resp BP Pulse Ox 98.8 F 84 20 119/83 95 02/20/18 15:36 02/20/18 15:36 02/20/18 15:36 02/20/18 15:36 02/20/18 15:36 <Harley Hanna - Last Filed: 02/20/18 18:25> ED Treatment Course - LABORATORY CBC & Chemistry Diagram: 02/20/18 17:27 02/20/18 17:27 - ADDITIONAL ORDERS Additional order review: 02/20/18 17:27 RBC 4.19 MCV 95.1 MCHC 33.9 RDW 13.3 MPV 8.3 D Neutrophils % 78.7 Lymphocytes % 10.2 D Monocytes % 10.1 Eosinophils % 0.6 D Basophils % 0.4 - Medications Given in the ED: ED Medications Discontinued Medications Generic Name Dose Route Start Last Admin Trade Name Freq PRN Reason Stop Dose Admin Piperacillin Sod/Tazobactam 50 mls @ 100 mls/hr 02/20/18 16:06 02/20/18 16:35 Sod 3.375 gm/ Dextrose IVPB 02/20/18 16:35 100 mls/hr ONCE ONE Administration Protocol <Jim Ferris - Last Filed: 02/20/18 18:24> - LABORATORY CBC & Chemistry Diagram: 02/20/18 17:27 02/20/18 17:27 <Harley Hanna - Last Filed: 02/20/18 18:25> Medical Decision Making - Medical Decision Making The patient is a 62 year old male with a significant past medical history of paraplegia, COPD, and recurrent UTIs who presents to the emergency department for evaluation of right foot pain and swelling. Plan: Labs Case discussed with Dr. Singer at 16:19. Case discussed with Dr. Fonseca at 18:23. <Jim Ferris - Last Filed: 02/20/18 18:24> - Medical Decision Making 02/20/18 17:36 Patient recently admitted with foot infection discharged yesterday upon returning home for infection worsen. Seen in the emergency department by patient 's infectious disease doctor Dr. Salazar, recommends readmission for prolonged course of Zosyn no indication for cultures We'll admit to medicine for further management. <Harley Hanna - Last Filed: 02/20/18 18:25> *DC/Admit/Observation/Transfer - Attestations Scribe Attestion: Documentation prepared by Jim Ferris, acting as family practice medical doctor for Harley Hanna MD. <Jim Ferris - Last Filed: 02/20/18 18:24> - Discharge Dispostion Decision to Admit order: Yes <Harley Hanna - Last Filed: 02/20/18 18:25> Diagnosis at time of Disposition: Wound infection - Referrals Referrals: Juan Manuel Kang MD [Primary Care Provider] - - Patient Instructions - Post Discharge Activity
[2018-02-20 17:46] LABS: BASO % 0.4 % (0-2.0); EOS % 0.6 % (0-4.5); HEMATOCRIT 39.8 % (35.4-49); HEMOGLOBIN 13.5 GM/dL (11.7-16.9); LYMPH % 10.2 % (8-40); MCH 32.2 pg (25.7-33.7); MCHC 33.9 g/dl (32.0-35.9); MEAN CELL VOLUME 95.1 fl (80-96); MEAN PLT VOLUME 8.3 fl (7.5-11.1); MONO % 10.1 % (3.8-10.2); NEUT % 78.7 % (42.8-82.8); PLATELET COUNT 349 K/MM3 (134-434); RBC 4.19 M/mm3 (4.00-5.60); RDW 13.3 % (11.9-15.9); WHITE BLOOD COUNT 10.5 K/mm3 (4.0-10.0)
[2018-02-20 18:09] LABS: ANION GAP 8 (8-16); CALCIUM 8.6 mg/dL (8.5-10.1); CHLORIDE 103 mmol/L (98-107); CO2 26 mmol/L (21-32); CREATININE 0.4 mg/dL (0.7-1.3); GLUCOSE,RANDOM 85 mg/dL (74-106); SODIUM 137 mmol/L (136-145)
[2018-02-20 18:16] LABS: BLOOD UREA NITROGEN 5 mg/dL (7-18)
[2018-02-20 18:21] LABS: POTASSIUM 3.9 mmol/L (3.5-5.1)
[2018-02-20 19:06] LABS: PLATELET ESTIMATE ADEQUATE
--- NOTE | 2018-02-20 19:34 | HP ---
Admitting History and Physical - Admission Chief Complaint: red toe History of Present Illness: 62 yo Male, history of paraplagia (h/o spinal fracture) recently admitted to hospital for Toe infection, started on PO Augmentin after receiving IV zosyn and discharged yesterday. Today toe seemed more erythematous and so came to ED. Seen by ID and advised to restart IV zosyn. Due to paraplegia patient has no feeling in legs. 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 spinal fracture)) Renal/: Yes: Other (Bladder dysfunction) Infectious Disease: Yes: Other (multiple UTIs Pseudomonas) Musculoskeletal: Yes: Other (Chronic pain) - Past Surgical History Past Surgical History: Yes: Splenectomy - Smoking History Smoking history: Former smoker Have you smoked in the past 12 months: No Aproximately how many cigarettes per day: 3 If you are a former smoker, when did you quit?: 1985 - Alcohol/Substance Use Hx Alcohol Use: No History of Substance Use: reports: Marijuana - Social History 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 History of Recent Travel: No Home Medications - Allergies Allergies/Adverse Reactions: Allergies Allergy/AdvReac Type Severity Reaction Status Date / Time No Known Allergies Allergy Verified 02/20/18 15:35 - Home Medications Home Medications: Ambulatory Orders Diazepam [Valium] 10 mg PO TID PRN #30 tablet MDD 30mg 09/16/16 Morphine 10 mg/5 ml Liquid [Morphine 10 mg/5 mL Liquid -] 4 mg PO Q4H 02/16/18 Amox-Tr/K Cl [Augmentin - 875Mg Tablet] 1 tab PO BID #14 tablet 02/19/18 Bacitracin - [Bacitracin Topical Ointment -] 1 applic TP DAILY #1 tube 02/19/18 Family Disease History - Family Disease History Family Disease History: Heart Disease: Father Review of Systems - Review of Systems Constitutional: denies: Chills, Fever Eyes: reports: No Symptoms HENT: denies: Difficult Swallowing, Epistaxis, Throat Pain Neck: denies: Decreased ROM, Stiffness, Swollen Glands Cardiovascular: denies: Chest Pain, Palpitations, Shortness of Breath Respiratory: denies: Cough Gastrointestinal: denies: Abdominal Pain, Constipation Genitourinary: reports: Other (condom catheter) Musculoskeletal: reports: Back Pain (chronic) Physical Examination Vital Signs: Vital Signs Temperature 98.8 F 02/20/18 15:36 Pulse Rate 84 02/20/18 15:36 Respiratory Rate 20 02/20/18 15:36 Blood Pressure 119/83 02/20/18 15:36 O2 Sat by Pulse Oximetry (%) 95 02/20/18 15:36 Constitutional: Yes: Well Nourished, No Distress, Calm Eyes: Yes: Conjunctiva Clear, EOM Intact, PERRL HENT: Yes: Atraumatic, Normocephalic Neck: Yes: Supple, Trachea Midline Cardiovascular: Yes: Regular Rate and Rhythm, S1, S2. No: Murmur Respiratory: Yes: Regular, CTA Bilaterally. No: Rales, Rhonchi, Wheezes Gastrointestinal: Yes: Normal Bowel Sounds, Soft. No: Distention, Tenderness Musculoskeletal: Yes: Other (paraplegia, decreased muscle mass of legs) Extremities: Yes: Other (right 1st toe with erythema, scaling skin) Edema: No Neurological: Yes: Alert, Oriented Labs: CBC, BMP 02/20/18 17:27 02/20/18 17:27 Problem List - Problems (1) Wound infection Assessment/Plan: -restart IV Zosyn, ID consulted Code(s): T14.8XXA - OTHER INJURY OF UNSPECIFIED BODY REGION, INITIAL ENCOUNTER; L08.9 - LOCAL INFECTION OF THE SKIN AND SUBCUTANEOUS TISSUE, UNSP (2) Neurogenic bladder Assessment/Plan: -on condom catheter Code(s): N31.9 - NEUROMUSCULAR DYSFUNCTION OF BLADDER, UNSPECIFIED (3) Paraplegia Assessment/Plan: -on chronic pain medication (to continue), valium for muscle spasm Code(s): G82.20 - PARAPLEGIA, UNSPECIFIED
[2018-02-20] MEDS: morphine SULFATE 10 MG/5 ML UNIT-DOSE CUP PO SCH (22:08)
[2018-02-20] MEDS ORDERED: morphine SULFATE 4 MG/ML VIAL ONE (22:12)
[2018-02-20 23:30] VITALS: BMI 20.2
[2018-02-21] MEDS ORDERED: PIPERACILLIN/TAZOBACTAM 3.375 GM VIAL IVPB ONE ×3 (01:03→17:24)
[2018-02-21] MEDS ORDERED: DEXTROSE 5%-WATER - 50 ML IVPB ONE ×3 (01:03→17:24)
[2018-02-21] MEDS ORDERED: PIPERACILLIN/TAZOB 3.375 GM 3.375 GM in DEXTROSE 5%-WATER - 50 ML IVPB SCH (02:00)
[2018-02-21] MEDS: PIPERACILLIN/TAZOB 3.375 GM 3.375 GM in DEXTROSE 5%-WATER - 50 ML IVPB SCH ×3 (02:13→17:41)
[2018-02-21] MEDS: morphine SULFATE 10 MG/5 ML UNIT-DOSE CUP PO SCH ×6 (02:16→21:58)
[2018-02-21 08:11] LABS: BASO % 0.6 % (0-2.0); EOS % 2.4 % (0-4.5); HEMATOCRIT 38.9 % (35.4-49); HEMOGLOBIN 13.1 GM/dL (11.7-16.9); LYMPH % 11.3 % (8-40); MCH 32.4 pg (25.7-33.7); MCHC 33.7 g/dl (32.0-35.9); MEAN PLT VOLUME 8.7 fl (7.5-11.1); MONO % 10.2 % (3.8-10.2); NEUT % 75.5 % (42.8-82.8); PLATELET COUNT 321 K/MM3 (134-434); RBC 4.05 M/mm3 (4.00-5.60); RDW 13.4 % (11.9-15.9); WHITE BLOOD COUNT 11.6 K/mm3 (4.0-10.0)
[2018-02-21 08:45] LABS: ANION GAP 10 (8-16); BLOOD UREA NITROGEN 8 mg/dL (7-18); CALCIUM 8.6 mg/dL (8.5-10.1); CHLORIDE 104 mmol/L (98-107); CO2 28 mmol/L (21-32); GLUCOSE,RANDOM 77 mg/dL (74-106); POTASSIUM 3.2 mmol/L (3.5-5.1); SODIUM 142 mmol/L (136-145)
[2018-02-21 08:46] LABS: CREATININE 0.5 mg/dL (0.7-1.3)
[2018-02-21] MEDS ORDERED: BACITRACIN 15 GM TUBE TOPICAL OINTMENT TP SCH (10:00)
--- NOTE | 2018-02-21 10:24 | CON.ID ---
Consult Consult Specialty:: infectious diseases Referred by:: dr cavazos Reason for Consultation:: cellulitis of the toe - History of Present Illness Chief Complaint: increased redness and cellulitis of the toe History of Present Illness: 62 yo Male, history of paraplagia (h/o spinal fracture) recently admitted to hospital for Toe infection, started on PO Augmentin after receiving IV zosyn and discharged yesterday. Today toe seemed more erythematous and so came to ED. Seen by ID and advised to restart IV zosyn. Due to paraplegia patient has no feeling in legs. 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 due to accidental fall (T2 spinal fracture)) Renal/: Yes: Other (Bladder dysfunction) Infectious Disease: Yes: Other (multiple UTIs Pseudomonas) Musculoskeletal: Yes: Other (Chronic pain) - Past Surgical History Past Surgical History: Yes: Splenectomy - Alcohol/Substance Use Hx Alcohol Use: No History of Substance Use: reports: Marijuana - Smoking History Smoking history: Former smoker Have you smoked in the past 12 months: No Aproximately how many cigarettes per day: 3 If you are a former smoker, when did you quit?: 1985 - Social History Usual Living Arrangement: With Significant Other 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 History of Recent Travel: No Home Medications - Allergies Allergies/Adverse Reactions: Allergies Allergy/AdvReac Type Severity Reaction Status Date / Time No Known Allergies Allergy Verified 02/20/18 15:35 - Home Medications Home Medications: Ambulatory Orders Diazepam [Valium] 10 mg PO TID PRN #30 tablet MDD 30mg 09/16/16 Morphine 10 mg/5 ml Liquid [Morphine 10 mg/5 mL Liquid -] 4 mg PO Q4H 02/16/18 Amox-Tr/K Cl [Augmentin - 875Mg Tablet] 1 tab PO BID #14 tablet 02/19/18 Bacitracin - [Bacitracin Topical Ointment -] 1 applic TP DAILY #1 tube 02/19/18 Family Disease History - Family Disease History Family Disease History: Heart Disease: Father Review of Systems - Review of Systems Constitutional: reports: No Symptoms Eyes: reports: No Symptoms HENT: reports: No Symptoms Neck: reports: No Symptoms Cardiovascular: reports: No Symptoms Respiratory: reports: No Symptoms Gastrointestinal: reports: No Symptoms Musculoskeletal: reports: No Symptoms Integumentary: reports: Erythema Neurological: reports: No Symptoms Endocrine: reports: No Symptoms Hematology/Lymphatic: reports: No Symptoms Psychiatric: reports: No Symptoms Physical Exam Vital Signs: Vital Signs Temperature 97.5 F L 02/21/18 06:33 Pulse Rate 79 02/21/18 06:33 Respiratory Rate 18 02/21/18 06:33 Blood Pressure 120/58 02/21/18 06:33 O2 Sat by Pulse Oximetry (%) 94 L 02/20/18 23:00 Constitutional: Yes: No Distress, Calm Cardiovascular: Yes: Regular Rate and Rhythm Respiratory: Yes: Regular, CTA Bilaterally Gastrointestinal: Yes: Normal Bowel Sounds, Soft Musculoskeletal: Yes: WNL Extremities: Yes: Erythema, Other Integumentary: Yes: Erythema Neurological: Yes: Alert, Oriented Psychiatric: Yes: Alert, Oriented Labs: CBC, BMP 02/21/18 06:30 02/21/18 06:30 Assessment/Plan Problem List - Problems (1) Wound infection Code(s): T14.8XXA - OTHER INJURY OF UNSPECIFIED BODY REGION, INITIAL ENCOUNTER; L08.9 - LOCAL INFECTION OF THE SKIN AND SUBCUTANEOUS TISSUE, UNSP (2) Neurogenic bladder Code(s): N31.9 - NEUROMUSCULAR DYSFUNCTION OF BLADDER, UNSPECIFIED (3) Paraplegia Code(s): G82.20 - PARAPLEGIA, UNSPECIFIED plan will start patient on zsoyn we will give it for couple of days rest as per the team
--- NOTE | 2018-02-21 10:26 | PN ---
Progress Note, Physician History of Present Illness: doing well cellulitis improving redness has decreased from the leg toe starting to look better - Current Medication List Current Medications: Active Medications Bacitracin (Bacitracin -) 1 applic TP DAILY [facility] Diazepam (Valium -) 10 mg PO TID PRN PRN Reason: muscle spasms Enoxaparin Sodium (Lovenox -) 30 mg SQ DAILY [facility] Piperacillin Sod/Tazobactam (Sod 3.375 gm/ Dextrose) 50 mls @ 100 mls/hr IVPB Q8H-IV [facility] Stop: 02/21/18 10:29 Last Admin: 02/21/18 02:13 Dose: 100 mls/hr Piperacillin Sod/Tazobactam (Sod 3.375 gm/ Dextrose) 50 mls @ 100 mls/hr IVPB Q8H-IV [facility]; Protocol Morphine Sulfate (Morphine 10 Mg/5 Ml Liquid) 4 mg PO Q4HPO [facility] Last Admin: 02/21/18 06:21 Dose: 4 mg - Objective Vital Signs: Vital Signs Temperature 97.5 F L 02/21/18 06:33 Pulse Rate 79 02/21/18 06:33 Respiratory Rate 18 02/21/18 06:33 Blood Pressure 120/58 02/21/18 06:33 O2 Sat by Pulse Oximetry (%) 94 L 02/20/18 23:00 Constitutional: Yes: No Distress, Calm Cardiovascular: Yes: Regular Rate and Rhythm Respiratory: Yes: Regular, CTA Bilaterally Gastrointestinal: Yes: Normal Bowel Sounds, Soft Musculoskeletal: Yes: WNL Extremities: Yes: Erythema (improving), Other Neurological: Yes: Alert, Oriented Psychiatric: Yes: Alert, Oriented Labs: CBC, BMP 02/21/18 06:30 02/21/18 06:30 Assessment/Plan Problem List - Problems (1) Wound infection Code(s): T14.8XXA - OTHER INJURY OF UNSPECIFIED BODY REGION, INITIAL ENCOUNTER; L08.9 - LOCAL INFECTION OF THE SKIN AND SUBCUTANEOUS TISSUE, UNSP (2) Neurogenic bladder Code(s): N31.9 - NEUROMUSCULAR DYSFUNCTION OF BLADDER, UNSPECIFIED (3) Paraplegia Code(s): G82.20 - PARAPLEGIA, UNSPECIFIED plan will start patient on zosyn we will give it for couple of days rest as per the team
[2018-02-21] MEDS: ENOXAPARIN NA (PORCINE) 30 MG/0.3 ML DISP.SYRIN SQ SCH (10:44)
--- NOTE | 2018-02-21 11:18 | PN ---
Progress Note, Physician History of Present Illness: Patient confused this morning. States that he was told he is going home. Health Aide also notes patient has been saying that he has to go to his Aunt's , but she had a month ago and had already passed. Patient takes chronic pain medication and prn Valium, no other change with medication recently besides antibiotics. - Current Medication List Current Medications: Active Medications Bacitracin (Bacitracin -) 1 applic TP DAILY [facility] Diazepam (Valium -) 10 mg PO TID PRN PRN Reason: muscle spasms Enoxaparin Sodium (Lovenox -) 30 mg SQ DAILY [facility] Last Admin: 02/21/18 10:44 Dose: 30 mg Piperacillin Sod/Tazobactam (Sod 3.375 gm/ Dextrose) 50 mls @ 100 mls/hr IVPB Q8H-IV [facility]; Protocol Morphine Sulfate (Morphine 10 Mg/5 Ml Liquid) 5 mg PO Q4HPO [facility] - Objective Vital Signs: Vital Signs Temperature 97.5 F L 02/21/18 06:33 Pulse Rate 79 02/21/18 06:33 Respiratory Rate 18 02/21/18 06:33 Blood Pressure 120/58 02/21/18 06:33 O2 Sat by Pulse Oximetry (%) 94 L 02/20/18 23:00 Constitutional: Yes: No Distress, Calm Neck: Yes: Supple, Trachea Midline Cardiovascular: Yes: Regular Rate and Rhythm, S1, S2. No: Murmur Respiratory: Yes: Regular, CTA Bilaterally. No: Rales, Rhonchi, Wheezes Gastrointestinal: Yes: Normal Bowel Sounds, Soft. No: Distention, Tenderness Musculoskeletal: Yes: Other (bilateral LE muscle atrophy, right 1st toe with erythema, skin ulcerations) Edema: No Neurological: Yes: Confusion, Pre-Existing Deficit (Paraplegia) Labs: CBC, BMP 02/21/18 06:30 02/21/18 06:30 Problem List - Problems (1) Wound infection Code(s): T14.8XXA - OTHER INJURY OF UNSPECIFIED BODY REGION, INITIAL ENCOUNTER; L08.9 - LOCAL INFECTION OF THE SKIN AND SUBCUTANEOUS TISSUE, UNSP (2) Neurogenic bladder Code(s): N31.9 - NEUROMUSCULAR DYSFUNCTION OF BLADDER, UNSPECIFIED (3) Paraplegia Code(s): G82.20 - PARAPLEGIA, UNSPECIFIED Assessment/Plan Current Active Problems Wound infection (Acute) Paraplegia following L2 spinal injury Chronic back pain History of UTI's -with confusion will recheck UA, Urine culture, check CT head for altered mental status
[2018-02-21] MEDS: diazePAM 5 MG TABLET PO PRN (17:41)
[2018-02-21 19:44] LABS: URINE APPEARANCE SLCLOUDY; URINE BILIRUBIN NEGATIVE (<2.0 mg/dL); URINE COLOR YELLOW; URINE GLUCOSE (UA) NEGATIVE (NEGATIVE); URINE KETONE 1+ (NEGATIVE); URINE NITRITE NEGATIVE (NEGATIVE); URINE PROTEIN NEGATIVE (NEGATIVE); URINE UROBILINOGEN NEGATIVE mg/dL (0.2-1.0)
[2018-02-21 19:46] LABS: URINE LEUK ESTERASE 2+ (NEGATIVE)
[2018-02-21 19:48] LABS: EPI CELLS RARE /HPF (FEW); URINE HYALINE CAST 1 /lpf; URINE MUCUS RARE
[2018-02-22] MEDS ORDERED: PIPERACILLIN/TAZOBACTAM 3.375 GM VIAL IVPB ONE ×3 (01:06→15:20)
[2018-02-22] MEDS ORDERED: DEXTROSE 5%-WATER - 50 ML IVPB ONE ×3 (01:06→15:20)
[2018-02-22] MEDS: PIPERACILLIN/TAZOB 3.375 GM 3.375 GM in DEXTROSE 5%-WATER - 50 ML IVPB SCH ×3 (01:56→17:03)
[2018-02-22] MEDS: morphine SULFATE 10 MG/5 ML UNIT-DOSE CUP PO SCH ×6 (01:57→21:59)
[2018-02-22 08:43] LABS: ALK PHOS 130 U/L (45-117); BILIRUBIN,TOTAL 0.5 mg/dL (0.2-1.0); BLOOD UREA NITROGEN 8 mg/dL (7-18); CALCIUM 8.6 mg/dL (8.5-10.1); CO2 26 mmol/L (21-32); CREATININE 0.6 mg/dL (0.7-1.3); GLUCOSE,RANDOM 85 mg/dL (74-106); SGPT/ALT 39 U/L (12-78); TOT PROT 7.2 g/dl (6.4-8.2)
[2018-02-22 08:44] LABS: ANION GAP 10 (8-16); CHLORIDE 104 mmol/L (98-107); POTASSIUM 3.4 mmol/L (3.5-5.1); SGOT/AST 39 U/L (15-37); SODIUM 140 mmol/L (136-145)
[2018-02-22 09:08] LABS: BASO % 1.5 % (0-2.0); EOS % 2.9 % (0-4.5); HEMATOCRIT 38.8 % (35.4-49); HEMOGLOBIN 13.1 GM/dL (11.7-16.9); LYMPH % 10.3 % (8-40); MCH 32.4 pg (25.7-33.7); MCHC 33.7 g/dl (32.0-35.9); MEAN CELL VOLUME 96.1 fl (80-96); MEAN PLT VOLUME 8.9 fl (7.5-11.1); MONO % 12.2 % (3.8-10.2); NEUT % 73.1 % (42.8-82.8); PLATELET COUNT 328 K/MM3 (134-434); RBC 4.04 M/mm3 (4.00-5.60); RDW 13.3 % (11.9-15.9); WHITE BLOOD COUNT 12.5 K/mm3 (4.0-10.0)
[2018-02-22] MEDS: ENOXAPARIN NA (PORCINE) 30 MG/0.3 ML DISP.SYRIN SQ SCH (09:11)
--- NOTE | 2018-02-22 11:33 | PN ---
Progress Note, Physician History of Present Illness: stable no new issues - Current Medication List Current Medications: Active Medications Diazepam (Valium -) 10 mg PO TID PRN PRN Reason: muscle spasms Last Admin: 02/21/18 17:41 Dose: 10 mg Enoxaparin Sodium (Lovenox -) 30 mg SQ DAILY [facility] Last Admin: 02/22/18 09:11 Dose: 30 mg Piperacillin Sod/Tazobactam (Sod 3.375 gm/ Dextrose) 50 mls @ 100 mls/hr IVPB Q8H-IV [facility]; Protocol Last Admin: 02/22/18 09:08 Dose: 100 mls/hr Morphine Sulfate (Morphine 10 Mg/5 Ml Liquid) 5 mg PO Q4HPO [facility] Last Admin: 02/22/18 09:10 Dose: 5 mg - Objective Vital Signs: Vital Signs Temperature 97.4 F L 02/22/18 09:00 Pulse Rate 87 02/22/18 09:00 Respiratory Rate 18 02/22/18 09:00 Blood Pressure 106/56 02/22/18 09:00 O2 Sat by Pulse Oximetry (%) 94 L 02/22/18 09:00 Constitutional: Yes: No Distress, Calm Cardiovascular: Yes: Regular Rate and Rhythm Respiratory: Yes: Regular, CTA Bilaterally Gastrointestinal: Yes: Normal Bowel Sounds, Soft Musculoskeletal: Yes: WNL Extremities: Yes: Other Neurological: Yes: Alert Psychiatric: Yes: Alert Labs: CBC, BMP 02/22/18 08:30 02/22/18 06:40 Assessment/Plan Problem List - Problems (1) Wound infection Code(s): T14.8XXA - OTHER INJURY OF UNSPECIFIED BODY REGION, INITIAL ENCOUNTER; L08.9 - LOCAL INFECTION OF THE SKIN AND SUBCUTANEOUS TISSUE, UNSP (2) Neurogenic bladder Code(s): N31.9 - NEUROMUSCULAR DYSFUNCTION OF BLADDER, UNSPECIFIED (3) Paraplegia Code(s): G82.20 - PARAPLEGIA, UNSPECIFIED plan continue zosyn we will give it for couple of days rest as per the team
[2018-02-22] MEDS: diazePAM 5 MG TABLET PO PRN (11:45)
--- NOTE | 2018-02-22 13:37 | PN ---
Progress Note, Physician History of Present Illness: Notes having pain in legs, more since the infection of the toe. Otherwise, no fevers noted. Insists keeping wound open to air -does not want any dressing on toe - Current Medication List Current Medications: Active Medications Diazepam (Valium -) 10 mg PO TID PRN PRN Reason: muscle spasms Last Admin: 02/22/18 11:45 Dose: 10 mg Enoxaparin Sodium (Lovenox -) 30 mg SQ DAILY [facility] Last Admin: 02/22/18 09:11 Dose: 30 mg Piperacillin Sod/Tazobactam (Sod 3.375 gm/ Dextrose) 50 mls @ 100 mls/hr IVPB Q8H-IV [facility]; Protocol Last Admin: 02/22/18 09:08 Dose: 100 mls/hr Morphine Sulfate (Morphine 10 Mg/5 Ml Liquid) 5 mg PO Q4HPO [facility] Last Admin: 02/22/18 09:10 Dose: 5 mg - Objective Vital Signs: Vital Signs Temperature 97.4 F L 02/22/18 09:00 Pulse Rate 87 02/22/18 09:00 Respiratory Rate 18 02/22/18 09:00 Blood Pressure 106/56 02/22/18 09:00 O2 Sat by Pulse Oximetry (%) 94 L 02/22/18 09:00 Constitutional: Yes: No Distress, Calm Cardiovascular: Yes: Regular Rate and Rhythm, S1, S2. No: Murmur Respiratory: Yes: Regular, CTA Bilaterally. No: Rales, Rhonchi, Wheezes Gastrointestinal: Yes: Normal Bowel Sounds, Soft. No: Distention Extremities: Yes: Other (paraplegia with atrophy of leg muscles, rigth 1st toe with ulcerated skin, no edema) Edema: No Labs: CBC, BMP 02/22/18 08:30 02/22/18 06:40 Problem List - Problems (1) Wound infection Code(s): T14.8XXA - OTHER INJURY OF UNSPECIFIED BODY REGION, INITIAL ENCOUNTER; L08.9 - LOCAL INFECTION OF THE SKIN AND SUBCUTANEOUS TISSUE, UNSP (2) Neurogenic bladder Code(s): N31.9 - NEUROMUSCULAR DYSFUNCTION OF BLADDER, UNSPECIFIED (3) Paraplegia Code(s): G82.20 - PARAPLEGIA, UNSPECIFIED Assessment/Plan Current Active Problems Wound infection (Acute) Paraplegia following L2 spinal injury Chronic back pain History of UTI's -CT head negative, mental status does appear a little better today -cont IV abx
[2018-02-23] MEDS ORDERED: DEXTROSE 5%-WATER - 50 ML IVPB ONE ×3 (00:34→17:52)
[2018-02-23] MEDS ORDERED: PIPERACILLIN/TAZOBACTAM 3.375 GM VIAL IVPB ONE ×3 (00:34→17:52)
[2018-02-23] MEDS: PIPERACILLIN/TAZOB 3.375 GM 3.375 GM in DEXTROSE 5%-WATER - 50 ML IVPB SCH ×3 (02:14→18:49)
[2018-02-23] MEDS: morphine SULFATE 10 MG/5 ML UNIT-DOSE CUP PO SCH ×5 (02:15→18:47)
[2018-02-23] MEDS: ENOXAPARIN NA (PORCINE) 30 MG/0.3 ML DISP.SYRIN SQ SCH (11:27)
--- NOTE | 2018-02-23 12:33 | PN ---
Progress Note, Physician History of Present Illness: stable no new issues wound improving - Current Medication List Current Medications: Active Medications Diazepam (Valium -) 10 mg PO TID PRN PRN Reason: muscle spasms Last Admin: 02/22/18 11:45 Dose: 10 mg Enoxaparin Sodium (Lovenox -) 30 mg SQ DAILY [facility] Last Admin: 02/23/18 11:27 Dose: Not Given Piperacillin Sod/Tazobactam (Sod 3.375 gm/ Dextrose) 50 mls @ 100 mls/hr IVPB Q8H-IV [facility]; Protocol Last Admin: 02/23/18 10:35 Dose: 100 mls/hr Morphine Sulfate (Morphine 10 Mg/5 Ml Liquid) 5 mg PO Q4HPO [facility] Last Admin: 02/23/18 11:28 Dose: 5 mg - Objective Vital Signs: Vital Signs Temperature 97.5 F L 02/23/18 05:30 Pulse Rate 80 02/23/18 05:30 Respiratory Rate 18 02/23/18 05:30 Blood Pressure 133/79 02/23/18 05:30 O2 Sat by Pulse Oximetry (%) 94 L 02/22/18 09:00 Constitutional: Yes: No Distress, Calm Cardiovascular: Yes: Regular Rate and Rhythm Respiratory: Yes: Regular, CTA Bilaterally Gastrointestinal: Yes: Normal Bowel Sounds, Soft, Other Musculoskeletal: Yes: WNL Extremities: Yes: Erythema (of the great toe), Other Integumentary: Yes: Erythema Wound/Incision: Yes: Clean/Dry Neurological: Yes: Alert, Oriented Psychiatric: Yes: Alert, Oriented Labs: CBC, BMP 02/22/18 08:30 02/22/18 06:40 Assessment/Plan Problem List - Problems (1) Wound infection Code(s): T14.8XXA - OTHER INJURY OF UNSPECIFIED BODY REGION, INITIAL ENCOUNTER; L08.9 - LOCAL INFECTION OF THE SKIN AND SUBCUTANEOUS TISSUE, UNSP (2) Neurogenic bladder Code(s): N31.9 - NEUROMUSCULAR DYSFUNCTION OF BLADDER, UNSPECIFIED (3) Paraplegia Code(s): G82.20 - PARAPLEGIA, UNSPECIFIED plan continue zosyn wound improving cellulitits resolving rest as per the team
--- NOTE | 2018-02-23 13:28 | PN ---
Progress Note, Physician Chief Complaint: Mr Valenzuela complains that he is positioned uncomfortably in bed. Denies cp, sob, n/v. Says his toe feels much better today. - Current Medication List Current Medications: Active Medications Diazepam (Valium -) 10 mg PO TID PRN PRN Reason: muscle spasms Last Admin: 02/22/18 11:45 Dose: 10 mg Enoxaparin Sodium (Lovenox -) 30 mg SQ DAILY [facility] Last Admin: 02/23/18 11:27 Dose: Not Given Piperacillin Sod/Tazobactam (Sod 3.375 gm/ Dextrose) 50 mls @ 100 mls/hr IVPB Q8H-IV [facility]; Protocol Last Admin: 02/23/18 10:35 Dose: 100 mls/hr Morphine Sulfate (Morphine 10 Mg/5 Ml Liquid) 5 mg PO Q4HPO [facility] Last Admin: 02/23/18 11:28 Dose: 5 mg - Objective Vital Signs: Vital Signs Temperature 36.4 C L 02/23/18 05:30 Pulse Rate 80 02/23/18 05:30 Respiratory Rate 18 02/23/18 05:30 Blood Pressure 133/79 02/23/18 05:30 O2 Sat by Pulse Oximetry (%) 94 L 02/22/18 09:00 Constitutional: Yes: Well Nourished, No Distress, Calm Cardiovascular: Yes: Regular Rate and Rhythm. No: Gallop, Murmur, Rub Respiratory: Yes: Regular, CTA Bilaterally. No: Rales, Rhonchi, Wheezes Gastrointestinal: Yes: Normal Bowel Sounds, Soft. No: Distention, Tenderness Extremities: Yes: Erythema, Other (wound dry) Edema: No Labs: CBC, BMP 02/22/18 08:30 02/22/18 06:40 Problem List - Problems (1) Cellulitis of left foot Assessment/Plan: -case d/w Dr Salazar -continue zosyn currently -appears improved from last week Code(s): L03.116 - CELLULITIS OF LEFT LOWER LIMB (2) Wound infection Assessment/Plan: -zosyn as above Code(s): T14.8XXA - OTHER INJURY OF UNSPECIFIED BODY REGION, INITIAL ENCOUNTER; L08.9 - LOCAL INFECTION OF THE SKIN AND SUBCUTANEOUS TISSUE, UNSP (3) PAF (paroxysmal atrial fibrillation) Assessment/Plan: -in sinus rhythm Code(s): I48.0 - PAROXYSMAL ATRIAL FIBRILLATION (4) Chronic pain Assessment/Plan: -continue home regimen Code(s): G89.29 - OTHER CHRONIC PAIN Qualifiers: Chronic pain type: chronic pain syndrome Qualified Code(s): G89.4 - Chronic pain syndrome
[2018-02-24] MEDS: morphine SULFATE 10 MG/5 ML UNIT-DOSE CUP PO SCH ×7 (00:05→21:54)
[2018-02-24] MEDS ORDERED: DEXTROSE 5%-WATER - 50 ML IVPB ONE ×4 (01:36→21:11)
[2018-02-24] MEDS ORDERED: PIPERACILLIN/TAZOBACTAM 3.375 GM VIAL IVPB ONE ×4 (01:36→21:10)
[2018-02-24] MEDS: PIPERACILLIN/TAZOB 3.375 GM 3.375 GM in DEXTROSE 5%-WATER - 50 ML IVPB SCH ×3 (02:37→18:34)
[2018-02-24 07:44] LABS: BASO % 0.2 % (0-2.0); EOS % 3.5 % (0-4.5); HEMATOCRIT 36.8 % (35.4-49); HEMOGLOBIN 12.7 GM/dL (11.7-16.9); LYMPH % 17.9 % (8-40); MCH 32.8 pg (25.7-33.7); MCHC 34.4 g/dl (32.0-35.9); MEAN CELL VOLUME 95.4 fl (80-96); MEAN PLT VOLUME 9.1 fl (7.5-11.1); MONO % 11.8 % (3.8-10.2); NEUT % 66.6 % (42.8-82.8); PLATELET COUNT 349 K/MM3 (134-434); RBC 3.86 M/mm3 (4.00-5.60); RDW 13.4 % (11.9-15.9); WHITE BLOOD COUNT 9.6 K/mm3 (4.0-10.0)
[2018-02-24 08:22] LABS: CHLORIDE 101 mmol/L (98-107); SODIUM 140 mmol/L (136-145)
[2018-02-24 08:29] LABS: ANION GAP 11 (8-16); BLOOD UREA NITROGEN 7 mg/dL (7-18); CALCIUM 8.6 mg/dL (8.5-10.1); CO2 28 mmol/L (21-32); CREATININE 0.5 mg/dL (0.7-1.3); GLUCOSE,RANDOM 77 mg/dL (74-106); MAGNESIUM 1.9 mg/dL (1.8-2.4); PHOSPHOROUS 2.2 mg/dL (2.5-4.9)
[2018-02-24] MEDS ORDERED: POTASSIUM CHLORIDE TABS 20 MEQ TABLET.ER (FP) PO ONE (11:15)
[2018-02-24] MEDS: NAPH,MB-DB/K PH,MBDB POWDER PACKET PO SCH ×2 (14:22→21:55)
[2018-02-24] MEDS: ENOXAPARIN NA (PORCINE) 30 MG/0.3 ML DISP.SYRIN SQ SCH (14:26)
--- NOTE | 2018-02-24 15:23 | PN ---
Progress Note, Physician History of Present Illness: doing well wound looks good cellulitis resolving swelling minimal - Current Medication List Current Medications: Active Medications Diazepam (Valium -) 10 mg PO TID PRN PRN Reason: muscle spasms Last Admin: 02/22/18 11:45 Dose: 10 mg Enoxaparin Sodium (Lovenox -) 30 mg SQ DAILY [facility] Last Admin: 02/24/18 14:26 Dose: Not Given Piperacillin Sod/Tazobactam (Sod 3.375 gm/ Dextrose) 50 mls @ 100 mls/hr IVPB Q8H-IV [facility]; Protocol Last Admin: 02/24/18 09:50 Dose: 100 mls/hr Morphine Sulfate (Morphine 10 Mg/5 Ml Liquid) 5 mg PO Q4HPO [facility] Last Admin: 02/24/18 14:27 Dose: 5 mg Potassium Phos/Sodium Phos (Phos-Nak Packet -) 1 packet PO TID [facility] Stop: 02/26/18 06:01 Last Admin: 02/24/18 14:22 Dose: 1 packet - Objective Vital Signs: Vital Signs Temperature 98.4 F 02/24/18 14:00 Pulse Rate 58 L 02/24/18 14:00 Respiratory Rate 17 02/24/18 14:00 Blood Pressure 143/59 02/24/18 14:00 O2 Sat by Pulse Oximetry (%) 97 02/24/18 09:00 Constitutional: Yes: No Distress, Calm Cardiovascular: Yes: Regular Rate and Rhythm Respiratory: Yes: Regular, CTA Bilaterally Gastrointestinal: Yes: Normal Bowel Sounds, Soft Musculoskeletal: Yes: Other Extremities: Yes: Other Neurological: Yes: Alert, Oriented Psychiatric: Yes: Alert, Oriented Labs: CBC, BMP 02/24/18 06:45 02/24/18 06:45 Assessment/Plan Problem List - Problems (1) Wound infection Code(s): T14.8XXA - OTHER INJURY OF UNSPECIFIED BODY REGION, INITIAL ENCOUNTER; L08.9 - LOCAL INFECTION OF THE SKIN AND SUBCUTANEOUS TISSUE, UNSP (2) Neurogenic bladder Code(s): N31.9 - NEUROMUSCULAR DYSFUNCTION OF BLADDER, UNSPECIFIED (3) Paraplegia Code(s): G82.20 - PARAPLEGIA, UNSPECIFIED plan continue zosyn wound improving cellulitits resolving rest as per the team will be able to deescalate by
--- NOTE | 2018-02-24 15:35 | PN ---
Progress Note, Physician Chief Complaint: Mr Valenzuela is without complaint. Denies cp, sob, n/v. - Current Medication List Current Medications: Active Medications Diazepam (Valium -) 10 mg PO TID PRN PRN Reason: muscle spasms Last Admin: 02/22/18 11:45 Dose: 10 mg Enoxaparin Sodium (Lovenox -) 30 mg SQ DAILY [facility] Last Admin: 02/24/18 14:26 Dose: Not Given Piperacillin Sod/Tazobactam (Sod 3.375 gm/ Dextrose) 50 mls @ 100 mls/hr IVPB Q8H-IV [facility]; Protocol Last Admin: 02/24/18 09:50 Dose: 100 mls/hr Morphine Sulfate (Morphine 10 Mg/5 Ml Liquid) 5 mg PO Q4HPO [facility] Last Admin: 02/24/18 14:27 Dose: 5 mg Potassium Phos/Sodium Phos (Phos-Nak Packet -) 1 packet PO TID [facility] Stop: 02/26/18 06:01 Last Admin: 02/24/18 14:22 Dose: 1 packet - Objective Vital Signs: Vital Signs Temperature 36.9 C 02/24/18 14:00 Pulse Rate 58 L 02/24/18 14:00 Respiratory Rate 17 02/24/18 14:00 Blood Pressure 143/59 02/24/18 14:00 O2 Sat by Pulse Oximetry (%) 97 02/24/18 09:00 Constitutional: Yes: Well Nourished, No Distress, Calm Cardiovascular: Yes: Regular Rate and Rhythm. No: Gallop, Murmur, Rub Respiratory: Yes: Regular, CTA Bilaterally. No: Rales, Rhonchi, Wheezes Gastrointestinal: Yes: Normal Bowel Sounds, Soft. No: Distention, Tenderness Extremities: Yes: Erythema (improved), Other (wound dry) Edema: No Labs: CBC, BMP 02/24/18 06:45 02/24/18 06:45 Problem List - Problems (1) Cellulitis of left foot Code(s): L03.116 - CELLULITIS OF LEFT LOWER LIMB (2) Wound infection Code(s): T14.8XXA - OTHER INJURY OF UNSPECIFIED BODY REGION, INITIAL ENCOUNTER; L08.9 - LOCAL INFECTION OF THE SKIN AND SUBCUTANEOUS TISSUE, UNSP (3) PAF (paroxysmal atrial fibrillation) Code(s): I48.0 - PAROXYSMAL ATRIAL FIBRILLATION (4) Chronic pain Code(s): G89.29 - OTHER CHRONIC PAIN Qualifiers: Chronic pain type: chronic pain syndrome Qualified Code(s): G89.4 - Chronic pain syndrome Assessment/Plan (1) Cellulitis of left foot Assessment/Plan: -continue zosyn -ID note reviewed -de-escalate on Code(s): L03.116 - CELLULITIS OF LEFT LOWER LIMB (2) Wound infection Assessment/Plan: -zosyn as above Code(s): T14.8XXA - OTHER INJURY OF UNSPECIFIED BODY REGION, INITIAL ENCOUNTER; L08.9 - LOCAL INFECTION OF THE SKIN AND SUBCUTANEOUS TISSUE, UNSP (3) PAF (paroxysmal atrial fibrillation) Assessment/Plan: -in sinus rhythm Code(s): I48.0 - PAROXYSMAL ATRIAL FIBRILLATION (4) Chronic pain Assessment/Plan: -continue home regimen Code(s): G89.29 - OTHER CHRONIC PAIN Qualifiers: Chronic pain type: chronic pain syndrome Qualified Code(s): G89.4 - Chronic pain syndrome
[2018-02-24] MEDS ORDERED: PT OWN MED DRAWER 7, Y5N ONE (22:20)
[2018-02-25] MEDS: morphine SULFATE 10 MG/5 ML UNIT-DOSE CUP PO SCH ×6 (01:05→21:33)
[2018-02-25] MEDS: diazePAM 5 MG TABLET PO PRN ×3 (01:10→18:44)
[2018-02-25] MEDS: PIPERACILLIN/TAZOB 3.375 GM 3.375 GM in DEXTROSE 5%-WATER - 50 ML IVPB SCH ×2 (02:34→10:05)
[2018-02-25] MEDS: NAPH,MB-DB/K PH,MBDB POWDER PACKET PO SCH ×3 (05:31→21:31)
[2018-02-25 08:21] LABS: BASO % 0.3 % (0-2.0); EOS % 4.3 % (0-4.5); HEMOGLOBIN 12.9 GM/dL (11.7-16.9); LYMPH % 13.9 % (8-40); MCH 32.9 pg (25.7-33.7); MCHC 34.1 g/dl (32.0-35.9); MEAN CELL VOLUME 96.5 fl (80-96); MEAN PLT VOLUME 9.5 fl (7.5-11.1); MONO % 11.2 % (3.8-10.2); NEUT % 70.3 % (42.8-82.8); PLATELET COUNT 366 K/MM3 (134-434); RBC 3.94 M/mm3 (4.00-5.60); RDW 13.5 % (11.9-15.9); WHITE BLOOD COUNT 12.8 K/mm3 (4.0-10.0)
[2018-02-25 08:45] LABS: ANION GAP 9 (8-16); BLOOD UREA NITROGEN 6 mg/dL (7-18); CALCIUM 8.4 mg/dL (8.5-10.1); CHLORIDE 103 mmol/L (98-107); CO2 29 mmol/L (21-32); CREATININE 0.5 mg/dL (0.7-1.3); GLUCOSE,RANDOM 77 mg/dL (74-106); PHOSPHOROUS 3.1 mg/dL (2.5-4.9); SODIUM 141 mmol/L (136-145)
[2018-02-25 08:56] LABS: MAGNESIUM 1.7 mg/dL (1.8-2.4); POTASSIUM 3.6 mmol/L (3.5-5.1)
[2018-02-25] MEDS ORDERED: PIPERACILLIN/TAZOBACTAM 3.375 GM VIAL IVPB ONE (09:30)
[2018-02-25] MEDS: ENOXAPARIN NA (PORCINE) 30 MG/0.3 ML DISP.SYRIN SQ SCH (10:05)
--- NOTE | 2018-02-25 13:13 | PN ---
Progress Note, Physician History of Present Illness: patient having loose greenish stool leg looking better wound healing - Current Medication List Current Medications: Active Medications Diazepam (Valium -) 10 mg PO TID PRN PRN Reason: muscle spasms Last Admin: 02/25/18 10:06 Dose: 10 mg Enoxaparin Sodium (Lovenox -) 30 mg SQ DAILY [facility] Last Admin: 02/25/18 10:05 Dose: Not Given Piperacillin Sod/Tazobactam (Sod 3.375 gm/ Dextrose) 50 mls @ 100 mls/hr IVPB Q8H-IV [facility]; Protocol Last Admin: 02/25/18 10:05 Dose: 100 mls/hr Morphine Sulfate (Morphine 10 Mg/5 Ml Liquid) 5 mg PO Q4HPO [facility] Last Admin: 02/25/18 10:03 Dose: 5 mg Potassium Phos/Sodium Phos (Phos-Nak Packet -) 1 packet PO TID [facility] Stop: 02/26/18 06:01 Last Admin: 02/25/18 05:31 Dose: 1 packet - Objective Vital Signs: Vital Signs Temperature 97.0 F L 02/25/18 08:29 Pulse Rate 58 L 02/25/18 08:29 Respiratory Rate 18 02/25/18 08:29 Blood Pressure 149/76 02/25/18 08:29 O2 Sat by Pulse Oximetry (%) 97 02/24/18 21:00 Constitutional: Yes: Calm, Mild Distress Cardiovascular: Yes: Regular Rate and Rhythm Respiratory: Yes: Regular, CTA Bilaterally Gastrointestinal: Yes: Normal Bowel Sounds, Soft, Other (dirrhoea) Musculoskeletal: Yes: Other Extremities: Yes: Other Neurological: Yes: Alert, Oriented Psychiatric: Yes: Alert, Oriented Labs: CBC, BMP 02/25/18 07:20 02/25/18 07:20 Assessment/Plan Problem List - Problems (1) Wound infection Code(s): T14.8XXA - OTHER INJURY OF UNSPECIFIED BODY REGION, INITIAL ENCOUNTER; L08.9 - LOCAL INFECTION OF THE SKIN AND SUBCUTANEOUS TISSUE, UNSP (2) Neurogenic bladder Code(s): N31.9 - NEUROMUSCULAR DYSFUNCTION OF BLADDER, UNSPECIFIED (3) Paraplegia Code(s): G82.20 - PARAPLEGIA, UNSPECIFIED plan will change abx to oral cdiff ordered rest continue current mgmt improving
--- NOTE | 2018-02-25 13:57 | PN ---
Progress Note, Physician Chief Complaint: Mr Valenzuela is without complaint. Denies cp, sob, n/v. ID note reviewed, see patient is having green stool. - Current Medication List Current Medications: Active Medications Amoxicillin/Clavulanate Potassium (Augmentin - 500mg Tablet) 1 tab PO BID@0800, 1730 [facility] Diazepam (Valium -) 10 mg PO TID PRN PRN Reason: muscle spasms Last Admin: 02/25/18 10:06 Dose: 10 mg Enoxaparin Sodium (Lovenox -) 30 mg SQ DAILY [facility] Last Admin: 02/25/18 10:05 Dose: Not Given Morphine Sulfate (Morphine 10 Mg/5 Ml Liquid) 5 mg PO Q4HPO [facility] Last Admin: 02/25/18 10:03 Dose: 5 mg Potassium Phos/Sodium Phos (Phos-Nak Packet -) 1 packet PO TID [facility] Stop: 02/26/18 06:01 Last Admin: 02/25/18 05:31 Dose: 1 packet - Objective Vital Signs: Vital Signs Temperature 36.1 C L 02/25/18 08:29 Pulse Rate 58 L 02/25/18 08:29 Respiratory Rate 18 02/25/18 08:29 Blood Pressure 149/76 02/25/18 08:29 O2 Sat by Pulse Oximetry (%) 97 02/24/18 21:00 Constitutional: Yes: Well Nourished, No Distress, Calm Cardiovascular: Yes: Regular Rate and Rhythm. No: Gallop, Murmur, Rub Respiratory: Yes: Regular, CTA Bilaterally. No: Rales, Rhonchi, Wheezes Gastrointestinal: Yes: Normal Bowel Sounds, Soft. No: Distention, Tenderness Extremities: Yes: Erythema (improved), Other (wound dry) Edema: No Labs: CBC, BMP 02/25/18 07:20 02/25/18 07:20 Problem List - Problems (1) Cellulitis of left foot Code(s): L03.116 - CELLULITIS OF LEFT LOWER LIMB (2) Wound infection Code(s): T14.8XXA - OTHER INJURY OF UNSPECIFIED BODY REGION, INITIAL ENCOUNTER; L08.9 - LOCAL INFECTION OF THE SKIN AND SUBCUTANEOUS TISSUE, UNSP (3) PAF (paroxysmal atrial fibrillation) Code(s): I48.0 - PAROXYSMAL ATRIAL FIBRILLATION (4) Chronic pain Code(s): G89.29 - OTHER CHRONIC PAIN Qualifiers: Chronic pain type: chronic pain syndrome Qualified Code(s): G89.4 - Chronic pain syndrome Assessment/Plan (1) Cellulitis of left foot Assessment/Plan: -antibiotics changed to augmentin -monitor on oral antibiotics -stool for c diff Code(s): L03.116 - CELLULITIS OF LEFT LOWER LIMB (2) Wound infection Assessment/Plan: -antibiotics changed to augmentin Code(s): T14.8XXA - OTHER INJURY OF UNSPECIFIED BODY REGION, INITIAL ENCOUNTER; L08.9 - LOCAL INFECTION OF THE SKIN AND SUBCUTANEOUS TISSUE, UNSP (3) PAF (paroxysmal atrial fibrillation) Assessment/Plan: -in sinus rhythm Code(s): I48.0 - PAROXYSMAL ATRIAL FIBRILLATION (4) Chronic pain Assessment/Plan: -continue home regimen Code(s): G89.29 - OTHER CHRONIC PAIN Qualifiers: Chronic pain type: chronic pain syndrome Qualified Code(s): G89.4 - Chronic pain syndrome
[2018-02-25] MEDS: AMOX TR/POT CLAV 500MG/125MG TABLETS (FP) PO SCH (18:43)
[2018-02-26] MEDS: morphine SULFATE 10 MG/5 ML UNIT-DOSE CUP PO SCH ×6 (02:30→21:28)
[2018-02-26] MEDS: diazePAM 5 MG TABLET PO PRN ×2 (05:37→16:02)
[2018-02-26] MEDS: NAPH,MB-DB/K PH,MBDB POWDER PACKET PO SCH (05:39)
[2018-02-26 07:00] LABS: BASO % 0.4 % (0-2.0); HEMATOCRIT 38.1 % (35.4-49); HEMOGLOBIN 12.9 GM/dL (11.7-16.9); LYMPH % 11.2 % (8-40); MCH 32.5 pg (25.7-33.7); MCHC 33.9 g/dl (32.0-35.9); MEAN CELL VOLUME 95.9 fl (80-96); MEAN PLT VOLUME 8.6 fl (7.5-11.1); MONO % 10.1 % (3.8-10.2); NEUT % 74.3 % (42.8-82.8); PLATELET COUNT 377 K/MM3 (134-434); RBC 3.97 M/mm3 (4.00-5.60); RDW 13.3 % (11.9-15.9); WHITE BLOOD COUNT 11.4 K/mm3 (4.0-10.0)
[2018-02-26 07:56] LABS: ANION GAP 9 (8-16); BLOOD UREA NITROGEN 5 mg/dL (7-18); CALCIUM 8.4 mg/dL (8.5-10.1); CHLORIDE 103 mmol/L (98-107); CO2 29 mmol/L (21-32); CREATININE 0.5 mg/dL (0.7-1.3); GLUCOSE,RANDOM 86 mg/dL (74-106); MAGNESIUM 1.7 mg/dL (1.8-2.4); PHOSPHOROUS 2.6 mg/dL (2.5-4.9); POTASSIUM 3.4 mmol/L (3.5-5.1); SODIUM 141 mmol/L (136-145)
[2018-02-26] MEDS: AMOX TR/POT CLAV 500MG/125MG TABLETS (FP) PO SCH ×2 (08:44→17:06)
[2018-02-26] MEDS: ENOXAPARIN NA (PORCINE) 30 MG/0.3 ML DISP.SYRIN SQ SCH (09:54)
--- NOTE | 2018-02-26 10:54 | PN ---
Progress Note, Physician Chief Complaint: Mr Valenzuela still having diarrhea. No cp, sob, n/v. - Current Medication List Current Medications: Active Medications Amoxicillin/Clavulanate Potassium (Augmentin - 500mg Tablet) 1 tab PO BID@0800, 1730 [facility] Last Admin: 02/26/18 08:44 Dose: 1 tab Diazepam (Valium -) 10 mg PO TID PRN PRN Reason: muscle spasms Last Admin: 02/26/18 05:37 Dose: 10 mg Enoxaparin Sodium (Lovenox -) 30 mg SQ DAILY [facility] Last Admin: 02/26/18 09:54 Dose: 30 mg Morphine Sulfate (Morphine 10 Mg/5 Ml Liquid) 5 mg PO Q4HPO [facility] Last Admin: 02/26/18 09:53 Dose: 5 mg - Objective Vital Signs: Vital Signs Temperature 36.4 C 02/26/18 06:00 Pulse Rate 65 02/26/18 06:00 Respiratory Rate 18 02/26/18 06:00 Blood Pressure 131/57 02/26/18 06:00 O2 Sat by Pulse Oximetry (%) 97 02/25/18 09:00 Constitutional: Yes: Well Nourished, No Distress, Calm Cardiovascular: Yes: Regular Rate and Rhythm. No: Gallop, Murmur, Rub Respiratory: Yes: Regular, CTA Bilaterally. No: Rales, Rhonchi, Wheezes Gastrointestinal: Yes: Normal Bowel Sounds, Soft. No: Distention, Tenderness Extremities: Yes: WNL Edema: No Labs: CBC, BMP 02/26/18 06:00 02/26/18 06:30 Problem List - Problems (1) Cellulitis of left foot Code(s): L03.116 - CELLULITIS OF LEFT LOWER LIMB (2) Wound infection Code(s): T14.8XXA - OTHER INJURY OF UNSPECIFIED BODY REGION, INITIAL ENCOUNTER; L08.9 - LOCAL INFECTION OF THE SKIN AND SUBCUTANEOUS TISSUE, UNSP (3) PAF (paroxysmal atrial fibrillation) Code(s): I48.0 - PAROXYSMAL ATRIAL FIBRILLATION (4) Chronic pain Code(s): G89.29 - OTHER CHRONIC PAIN Qualifiers: Chronic pain type: chronic pain syndrome Qualified Code(s): G89.4 - Chronic pain syndrome Assessment/Plan (1) Cellulitis of left foot Assessment/Plan: -doing well on augmentin -awaiting c diff results Code(s): L03.116 - CELLULITIS OF LEFT LOWER LIMB (2) Wound infection Assessment/Plan: -continue augmentin Code(s): T14.8XXA - OTHER INJURY OF UNSPECIFIED BODY REGION, INITIAL ENCOUNTER; L08.9 - LOCAL INFECTION OF THE SKIN AND SUBCUTANEOUS TISSUE, UNSP (3) PAF (paroxysmal atrial fibrillation) Assessment/Plan: -in sinus rhythm Code(s): I48.0 - PAROXYSMAL ATRIAL FIBRILLATION (4) Chronic pain Assessment/Plan: -continue home regimen Code(s): G89.29 - OTHER CHRONIC PAIN Qualifiers: Chronic pain type: chronic pain syndrome Qualified Code(s): G89.4 - Chronic pain syndrome Dispo -d/c tomorrow
--- NOTE | 2018-02-26 13:56 | PN ---
Progress Note, Physician History of Present Illness: stable patient doing well awaiting cdiff results - Current Medication List Current Medications: Active Medications Amoxicillin/Clavulanate Potassium (Augmentin - 500mg Tablet) 1 tab PO BID@0800, 1730 [facility] Last Admin: 02/26/18 08:44 Dose: 1 tab Diazepam (Valium -) 10 mg PO TID PRN PRN Reason: muscle spasms Last Admin: 02/26/18 05:37 Dose: 10 mg Enoxaparin Sodium (Lovenox -) 30 mg SQ DAILY [facility] Last Admin: 02/26/18 09:54 Dose: 30 mg Morphine Sulfate (Morphine 10 Mg/5 Ml Liquid) 5 mg PO Q4HPO [facility] Last Admin: 02/26/18 09:53 Dose: 5 mg - Objective Vital Signs: Vital Signs Temperature 97.6 F 02/26/18 06:00 Pulse Rate 65 02/26/18 06:00 Respiratory Rate 18 02/26/18 06:00 Blood Pressure 131/57 02/26/18 06:00 O2 Sat by Pulse Oximetry (%) 97 02/25/18 09:00 Constitutional: Yes: No Distress, Calm Cardiovascular: Yes: Regular Rate and Rhythm Respiratory: Yes: Regular, CTA Bilaterally Gastrointestinal: Yes: Normal Bowel Sounds, Soft Musculoskeletal: Yes: WNL Extremities: Yes: Other Neurological: Yes: Alert, Oriented Psychiatric: Yes: Alert, Oriented Labs: CBC, BMP 02/26/18 06:00 02/26/18 06:30 Assessment/Plan Problem List - Problems (1) Wound infection Code(s): T14.8XXA - OTHER INJURY OF UNSPECIFIED BODY REGION, INITIAL ENCOUNTER; L08.9 - LOCAL INFECTION OF THE SKIN AND SUBCUTANEOUS TISSUE, UNSP (2) Neurogenic bladder Code(s): N31.9 - NEUROMUSCULAR DYSFUNCTION OF BLADDER, UNSPECIFIED (3) Paraplegia Code(s): G82.20 - PARAPLEGIA, UNSPECIFIED plan continue oral abx await for cdiff results wound care rest as per the team
[2018-02-26] MEDS ORDERED: MAGNESIUM SULFATE IN WATER 2 GM/50 ML IVPB IVPB ONE (19:00)
[2018-02-27] MEDS: morphine SULFATE 10 MG/5 ML UNIT-DOSE CUP PO SCH ×5 (01:18→17:47)
[2018-02-27 05:54] VITALS: PULSE 58
[2018-02-27 07:58] LABS: BASO % 1.1 % (0-2.0); EOS % 4.9 % (0-4.5); HEMATOCRIT 37.3 % (35.4-49); HEMOGLOBIN 12.7 GM/dL (11.7-16.9); LYMPH % 16.7 % (8-40); MCH 32.5 pg (25.7-33.7); MEAN CELL VOLUME 95.6 fl (80-96); MEAN PLT VOLUME 9.2 fl (7.5-11.1); MONO % 10.9 % (3.8-10.2); NEUT % 66.4 % (42.8-82.8); PLATELET COUNT 409 K/MM3 (134-434); RBC 3.91 M/mm3 (4.00-5.60); RDW 13.6 % (11.9-15.9); WHITE BLOOD COUNT 10.4 K/mm3 (4.0-10.0)
[2018-02-27 09:08] LABS: ANION GAP 9 (8-16); BLOOD UREA NITROGEN 8 mg/dL (7-18); CALCIUM 8.4 mg/dL (8.5-10.1); CHLORIDE 104 mmol/L (98-107); CO2 29 mmol/L (21-32); CREATININE 0.6 mg/dL (0.7-1.3); GLUCOSE,RANDOM 72 mg/dL (74-106); MAGNESIUM 1.6 mg/dL (1.8-2.4); PHOSPHOROUS 2.3 mg/dL (2.5-4.9); POTASSIUM 3.5 mmol/L (3.5-5.1); SODIUM 142 mmol/L (136-145)
[2018-02-27] MEDS: AMOX TR/POT CLAV 500MG/125MG TABLETS (FP) PO SCH ×2 (09:44→17:48)
[2018-02-27] MEDS: ENOXAPARIN NA (PORCINE) 30 MG/0.3 ML DISP.SYRIN SQ SCH (09:44)
[2018-02-27 12:06] VITALS: BP 128/45; TEMP 98.1
--- NOTE | 2018-02-27 14:23 | DS ---
Physical Examination Vital Signs: Vital Signs Temperature 36.7 C 02/27/18 09:00 Pulse Rate 58 L 02/27/18 09:00 Respiratory Rate 18 02/27/18 09:00 Blood Pressure 128/45 02/27/18 09:00 O2 Sat by Pulse Oximetry (%) 98 02/26/18 21:00 Constitutional: Yes: Well Nourished, No Distress, Calm Cardiovascular: Yes: Regular Rate and Rhythm. No: Gallop, Murmur, Rub Respiratory: Yes: Regular, CTA Bilaterally. No: Rales, Rhonchi, Wheezes Gastrointestinal: Yes: Normal Bowel Sounds, Soft. No: Distention, Tenderness Extremities: Yes: WNL Edema: No Labs: CBC, BMP 02/27/18 07:00 02/27/18 07:00 Discharge Summary Reason For Visit: WOUND OF RIGHT FOOT Current Active Problems Cellulitis of left foot (Acute) Wound infection (Acute) Hospital Course: (1) Cellulitis of left foot Code(s): L03.116 - CELLULITIS OF LEFT LOWER LIMB (2) Wound infection Code(s): T14.8XXA - OTHER INJURY OF UNSPECIFIED BODY REGION, INITIAL ENCOUNTER; L08.9 - LOCAL INFECTION OF THE SKIN AND SUBCUTANEOUS TISSUE, UNSP (3) PAF (paroxysmal atrial fibrillation) Code(s): I48.0 - PAROXYSMAL ATRIAL FIBRILLATION (4) Chronic pain Code(s): G89.29 - OTHER CHRONIC PAIN Qualifiers: Chronic pain type: chronic pain syndrome Qualified Code(s): G89.4 - Chronic pain syndrome Mr Valenzuela is a 62 year old who comes in with wound infection and cellulitis. He was admitted and started on zosyn. ID saw him and continued patient on zosyn. He improved significantly and was successfully transitioned to augmentin. He was monitored on augmentin and continued to improve. Currently he is safe for discharge home on augmentin. 32 minutes spent in preparation of this discharge Condition: Good - Instructions Diet, Activity, Other Instructions: resume previous diet and activity Referrals: Juan Manuel Kang MD [Primary Care Provider] - Disposition: VNS/HOME HEALTH CARE - Home Medications Comprehensive Discharge Medication List: Ambulatory Orders Diazepam [Valium] 10 mg PO TID PRN #30 tablet MDD 30mg 09/16/16 Morphine 10 mg/5 ml Liquid [Morphine 10 mg/5 mL Liquid -] 4 mg PO Q4H 02/16/18 Bacitracin - [Bacitracin Topical Ointment -] 1 applic TP DAILY #1 tube 02/19/18 Amox-Tr/K Cl [Augmentin 500-125mg Tablet -] 1 tab PO BID@0800,1730 #14 tablet
--- NOTE | 2018-02-27 16:02 | PN ---
Progress Note, Physician - Current Medication List Current Medications: Active Medications Amoxicillin/Clavulanate Potassium (Augmentin - 500mg Tablet) 1 tab PO BID@0800, 1730 [facility] Last Admin: 02/27/18 09:44 Dose: 1 tab Diazepam (Valium -) 10 mg PO TID PRN PRN Reason: muscle spasms Last Admin: 02/26/18 16:02 Dose: 10 mg Enoxaparin Sodium (Lovenox -) 30 mg SQ DAILY [facility] Last Admin: 02/27/18 09:44 Dose: 30 mg Morphine Sulfate (Morphine 10 Mg/5 Ml Liquid) 5 mg PO Q4HPO [facility] Last Admin: 02/27/18 14:38 Dose: 5 mg - Objective Vital Signs: Vital Signs Temperature 98.1 F 02/27/18 09:00 Pulse Rate 58 L 02/27/18 09:00 Respiratory Rate 18 02/27/18 09:00 Blood Pressure 128/45 02/27/18 09:00 O2 Sat by Pulse Oximetry (%) 98 02/26/18 21:00 Labs: CBC, BMP 02/27/18 07:00 02/27/18 07:00
== END 2018-02-27 22:00 | disposition home health service (06) | DRG 603 ==
LOC: JER 15:12 → JERBED 18:26 → J5S 22:39 → J6S 02-24 11:23
PROVIDERS: ADMIT Specialist; ATTEND Specialist
DX: L03.116 Cellulitis of left lower limb (principal); G82.20 Paraplegia, unspecified; J44.9 Chronic obstructive pulmonary disease, unspecified; N31.9 Neuromuscular dysfunction of bladder, unspecified; I48.0 Paroxysmal atrial fibrillation; G89.4 Chronic pain syndrome; S91.301A Unspecified open wound, right foot, initial encounter; L08.9 Local infection of the skin and subcutaneous tissue, unspecified; Z87.891 Personal history of nicotine dependence; X58.XXXA Exposure to other specified factors, initial encounter; Y93.89 Activity, other specified; Y92.89 Other specified places as the place of occurrence of the external cause
CPT/HCPCS: 36415; 70450-TC; 80048; 80053; 81003; 81015; 83735; 84100; 85025; 87086; 87324; 87449; 99282-25

== ENCOUNTER 2018-04-30 13:45 | Inpatient (IN) | payer OTHER, BC ==
[2018-04-30 13:51] VITALS: BMI 20.3
--- NOTE | 2018-04-30 13:53 | PDOC ---
History of Present Illness - General Chief Complaint: Urinary Problem Stated Complaint: UTI INFECTION Time Seen by Provider: 04/30/18 13:52 History Source: Patient - History of Present Illness Initial Comments: The patient is a 62M with a history of spinal transection (~T4), neurogenic bladder, and recurrent UTI who presents with suspected UTI. The patient reports that he feels as though he has a UTI becuase he feels a vague pain generating from his groin that radiates towards his chest. Patient uses a condom catheter which he states he hasn't changed in several days. He endorses subjective fever/chills, sweating. Endorses 1d of loose stool. Denies blood in urine or stool. He denies KIRAN, chest pain, SOB, or new changes in sensation. Patient denies N/V. 04/30/18 13:57 Past History - Past Medical History Allergies/Adverse Reactions: Allergies Allergy/AdvReac Type Severity Reaction Status Date / Time No Known Allergies Allergy Verified 02/20/18 15:35 Home Medications: Ambulatory Orders Diazepam [Valium] 10 mg PO TID PRN #30 tablet MDD 30mg 09/16/16 Morphine 10 mg/5 ml Liquid [Morphine 10 mg/5 mL Liquid -] 4 mg PO Q4H 02/16/18 Bacitracin - [Bacitracin Topical Ointment -] 1 applic TP DAILY #1 tube 02/19/18 Anemia: No Asthma: No Cancer: No Cardiac Disorders: No CVA: No COPD: Yes CHF: No Dementia: No Diabetes: No GI Disorders: No Disorders: Yes (Recurrent UTI, 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) HTN: (Hypotension) Hypercholesterolemia: No Liver Disease: No Seizures: No Thyroid Disease: No - Surgical History Abdominal Surgery: No Appendectomy: No Cardiac Surgery: No Cholecystectomy: No Lung Surgery: No Neurologic Surgery: No Orthopedic Surgery: Yes (fracture right wrist s/p fusion) - Immunization History Td Vaccination: No Immunization Up to Date: No - Suicide/Smoking/Psychosocial Hx Smoking Status: No Smoking History: Never smoked Years of Tobacco Use: 0 Have you smoked in the past 12 months: No Number of Cigarettes Smoked Daily: 3 If you are a former smoker, when did you quit?: 1986 Cigars Per Day: 0 Information on smoking cessation initiated: No Hx Alcohol Use: Yes (social) Drug/Substance Use Hx: No Substance Use Type: None Hx Substance Use Treatment: No Review of Systems - Review of Systems Able to Perform ROS?: Yes Comments:: GENERAL/CONSTITUTIONAL: + fevers and chills HEAD, EYES, EARS, NOSE AND THROAT: No change in vision. No ear pain or discharge. No sore throat CARDIOVASCULAR: No chest pain or shortness of breath RESPIRATORY: +cough GASTROINTESTINAL: +Diarrhea x1; No nausea, vomiting MUSCULOSKELETAL: No change in sensation SKIN: No rash NEUROLOGIC: No headache, vertigo, loss of consciousness, or change in strength/ sensation ENDOCRINE: No increased thirst. No abnormal weight change 04/30/18 14:30 Is the patient limited Bengali proficient: No *Physical Exam - Vital Signs Last Vital Signs Temp Pulse Resp BP Pulse Ox 97.4 F L 103 H 20 125/95 95 04/30/18 13:49 04/30/18 13:49 04/30/18 13:49 04/30/18 13:49 04/30/18 13:49 - Physical Exam Comments: GENERAL: Awake, alert, and fully oriented, in no acute distress HEAD: No signs of trauma, normocephalic, atraumatic EYES: PERRL, EOMI, sclera anicteric, conjunctiva clear ENT: Hearing grossly normal, nares patent, oropharynx clear without exudates. Moist mucosa LUNGS: No distress, speaks full sentences, clear to auscultation bilaterally HEART: Tachycardic and rhythm, normal S1 and S2, no murmurs appreciated, peripheral pulses normal and equal bilaterally ABDOMEN: Soft, normoactive bowel sounds, non-distended EXTREMITIES : BLE without sensation or motor function. NEUROLOGICAL: Cranial nerves II through XII grossly intact. Patient insensate below nipple line; no motor function below nipple line either. Patient with sensation and motor grossly intact from nipple-line up. Normal speech SKIN: Warm, Dry, normal turgor 04/30/18 14:23 ED Treatment Course - LABORATORY CBC & Chemistry Diagram: 05/01/18 16:50 05/01/18 16:50 Medical Decision Making - Medical Decision Making The patient is a 62M w/ a history of complete spinal transection, neurogenic bladder, and recurrent UTI who presents for evaluation of UTI ED Course Patient tachycardic Sepsis w/u ECG NSR with rate 95; no T-wave inversions, no signs of acute ischemia, no axis deviation, QTc not prolonged (437) 04/30/18 14:12 Lactate 3, will initiate resuscitation with NS and repeat lactate CMP resent 2/2 sample hemolyzing Will give Zosyn 4.5g IV for complicated UTI based on prior UCx w/ hx of Pseudomonas growth 04/30/18 16:31 Plan for admission for IV abx for UTI Morphine 4mg IV for pain 04/30/18 16:33 Dispo: Admit for IV abx and resuscitation 04/30/18 17:23 *DC/Admit/Observation/Transfer Diagnosis at time of Disposition: PAF (paroxysmal atrial fibrillation), Neurogenic bladder UTI (urinary tract infection) Qualifiers: Urinary tract infection type: acute cystitis Hematuria presence: without hematuria Qualified Code(s): N30.00 - Acute cystitis without hematuria - Discharge Dispostion Condition at time of disposition: Good Decision to Admit order: Yes - Referrals - Patient Instructions - Post Discharge Activity
[2018-04-30 15:03] LABS: BASO % 1.1 % (0-2.0); EOS % 0.7 % (0-4.5); HEMATOCRIT 42.3 % (35.4-49); HEMOGLOBIN 14.7 GM/dL (11.7-16.9); LYMPH % 10.5 % (8-40); MCH 31.9 pg (25.7-33.7); MCHC 34.8 g/dl (32.0-35.9); MEAN CELL VOLUME 91.7 fl (80-96); MEAN PLT VOLUME 10.1 fl (7.5-11.1); MONO % 10.2 % (3.8-10.2); NEUT % 77.5 % (42.8-82.8); PLATELET COUNT 414 K/MM3 (134-434); RBC 4.61 M/mm3 (4.00-5.60); RDW 14.5 % (11.9-15.9); WHITE BLOOD COUNT 9.9 K/mm3 (4.0-10.0)
[2018-04-30 15:05] LABS: URINE APPEARANCE CLOUDY; URINE BILIRUBIN NEGATIVE (<2.0 mg/dL); URINE COLOR YELLOW; URINE GLUCOSE (UA) NEGATIVE (NEGATIVE); URINE KETONE NEGATIVE (NEGATIVE); URINE LEUK ESTERASE NEGATIVE (NEGATIVE); URINE NITRITE POSITIVE (NEGATIVE); URINE PROTEIN NEGATIVE (NEGATIVE); URINE UROBILINOGEN NEGATIVE mg/dL (0.2-1.0)
[2018-04-30 15:11] LABS: VENOUS PH 7.35 (7.32-7.42)
[2018-04-30 15:12] LABS: VENOUS PC02 51.9 mmHg (38-52); VENOUS PO2 32.9 mmHg (28-48)
[2018-04-30 15:17] LABS: EPI CELLS MANY /HPF (FEW); URINE BACTERIA MANY /hpf (NONE SEEN)
[2018-04-30 15:28] LABS: INR 0.92 (0.83-1.09); PROTHROMBIN TIME (PATIENT) 10.4 SEC (9.7-13.0)
[2018-04-30 15:31] LABS: ACTIVATED PTT 32.7 SECONDS (25.2-36.5)
[2018-04-30] MEDS ORDERED: SODIUM CHLORIDE 0.9% 500 ML INFUS.BAG IV ONE (15:50)
[2018-04-30] MEDS ORDERED: PIPERACILLIN/TAZOB 4.5 GM 4.5 GM in DEXTROSE 5%-WATER 100 ML IVPB ONE (16:23)
[2018-04-30] MEDS ORDERED: PIPERACILLIN/TAZOB 4.5 GM 4.5 GM/100 ML BAG IVPB ONE (16:30)
[2018-04-30] MEDS ORDERED: morphine CARPU-JECT 4 MG/1 ML DISP.SYRIN IVPUSH ONE (16:51)
[2018-04-30 17:03] LABS: ALBUMIN 3.1 g/dl (3.4-5.0); ALK PHOS 157 U/L (45-117); ANION GAP 9 MMOL/L (8-16); BILIRUBIN,TOTAL 0.8 mg/dL (0.2-1.0); BLOOD UREA NITROGEN 3 mg/dL (7-18); CALCIUM 8.5 mg/dL (8.5-10.1); CHLORIDE 100 mmol/L (98-107); CO2 28 mmol/L (21-32); CREATININE 0.6 mg/dL (0.7-1.3); GLUCOSE,RANDOM 94 mg/dL (74-106); POTASSIUM 4.2 mmol/L (3.5-5.1); SGOT/AST 37 U/L (15-37); SGPT/ALT 35 U/L (12-78); SODIUM 137 mmol/L (136-145); TOT PROT 7.1 g/dl (6.4-8.2)
[2018-04-30] MEDS ORDERED: morphine SULFATE 4 MG/ML VIAL ONE (17:57)
--- NOTE | 2018-04-30 18:13 | HP ---
CHIEF COMPLAINT: suprapubic pain/burning PCP: Dr. Kang HISTORY OF PRESENT ILLNESS: Patient is a 62 year old male with a significant past medical history of paraplagia (h/o spinal fracture), prox. atrial fibrillation, neurogenic bladder , and recurrent UTIs. He presents to the ED today with complaints of suprapubic pain and discomfort. States it is the same suprapubic pain, discomfort he experiences when he has a UTI. He has a condom catheter attached to brambila bag with cloudy yellow urine. He endorses subjective fever/chills, sweating, general weakness and loose stools x 1 day. He denies chest pain, SOB, nausea or vomiting. Patient with recent hospitalization for left toe infection s/p IV zosyn. Patient has no feelings of his legs secondary to paraplegia. On admission, he was noted to have an elevated lactic level of 3.7 and was given fluid resuscitation. A repeat lactic acid is now 2.3. He is afebrile, but appears weak and fatigued. He is noted to have mild tachycardia. Blood and urine cultures pending. ER course was notable for: (1)right hip ulceration - dimed sized (2) ua: no wbc ct, +nitrates, +bacteria. UC pending. (3) +tachycardia, lactic acidosis 3.7. (4) zosyn (5) ekg NSR Recent Travel: none Social History: Smoking: denies Alcohol:denies Drugs:on chronic morphine/valium Family History: Allergies No Known Allergies Allergy (Verified 02/20/18 15:35) HOME MEDICATIONS: Home Medications Medication Instructions Recorded Diazepam [Valium] 10 mg PO TID PRN #30 tablet MDD 09/16/16 30mg Morphine 10 mg/5 ml Liquid 4 mg PO Q4H 02/16/18 [Morphine 10 mg/5 mL Liquid -] Bacitracin - [Bacitracin Topical 1 applic TP DAILY #1 tube 02/19/18 Ointment -] Amox-Tr/K Cl [Augmentin 500-125mg 1 tab PO BID@0800,1730 #14 tablet 02/27/18 Tablet -] PHYSICAL EXAMINATION Vital Signs - 24 hr 04/30/18 13:49 Temperature 97.4 F L Pulse Rate 103 H Respiratory 20 Rate Blood Pressure 125/95 O2 Sat by Pulse 95 Oximetry (%) GENERAL: Awake, alert, and fully oriented, in no acute distress. HEAD: Normal with no signs of trauma. EYES: Pupils equal, round and reactive to light, extraocular movements intact, sclera anicteric, conjunctiva clear. No lid lag. EARS, NOSE, THROAT: Ears normal, nares patent, oropharynx clear without exudates. Moist mucous membranes. NECK: Normal range of motion, supple without lymphadenopathy, JVD, or masses. LUNGS: Breath sounds equal, clear to auscultation bilaterally. No wheezes, and no crackles. No accessory muscle use. HEART: Regular rate and rhythm, normal S1 and S2 without murmur ABDOMEN: Soft, nontender, not distended, normoactive bowel sounds, no guarding, no rebound, no masses. MUSCULOSKELETAL: history of paraplagia (h/o spinal fracture) UPPER EXTREMITIES: No peripheral edema. LOWER EXTREMITIES: history of paraplagia (h/o spinal fracture) PSYCHIATRIC: Cooperative. Good eye contact. Appropriate mood and affect. SKIN: small round dimed-sized pressure sore on right hip, no drainage, no odor, present on admission. Laboratory Results - last 24 hr 04/30/18 04/30/18 04/30/18 14:30 14:30 14:30 WBC 9.9 RBC 4.61 Hgb 14.7 Hct 42.3 MCV 91.7 MCH 31.9 MCHC 34.8 RDW 14.5 Plt Count 414 MPV 10.1 Absolute Neuts (auto) 7.7 Neutrophils % 77.5 Lymphocytes % 10.5 D Monocytes % 10.2 Eosinophils % 0.7 D Basophils % 1.1 Nucleated RBC % 0 PT with INR 10.40 INR 0.92 PTT (Actin FS) 32.7 VBG pH POC VBG pCO2 POC VBG pO2 Mixed VBG HCO3 Sodium Potassium Chloride Carbon Dioxide Anion Gap BUN Creatinine Creat Clearance w eGFR Random Glucose Lactic Acid Calcium Total Bilirubin AST ALT Alkaline Phosphatase Troponin I Total Protein Albumin Urine Color Yellow Urine Appearance Cloudy Urine pH 8.0 D Ur Specific [place] 1.003 Urine Protein Negative Urine Glucose (UA) Negative Urine Ketones Negative Urine Blood Negative Urine Nitrite Positive Urine Bilirubin Negative Urine Urobilinogen Negative Ur Leukocyte Esterase Negative Urine WBC (Auto) None Urine RBC (Auto) 6 Ur Epithelial Cells Many Urine Bacteria Many 08/23/18 08/23/18 08/23/18 14:30 14:30 14:35 WBC RBC Hgb Hct MCV MCH MCHC RDW Plt Count MPV Absolute Neuts (auto) Neutrophils % Lymphocytes % Monocytes % Eosinophils % Basophils % Nucleated RBC % PT with INR INR PTT (Actin FS) VBG pH POC VBG pCO2 POC VBG pO2 Mixed VBG HCO3 Sodium Cancelled Potassium Cancelled Chloride Cancelled Carbon Dioxide Cancelled Anion Gap Cancelled BUN Cancelled Creatinine Cancelled Creat Clearance w eGFR Cancelled Random Glucose Cancelled Lactic Acid 3.7 H* Calcium Cancelled Total Bilirubin Cancelled AST Cancelled ALT Cancelled Alkaline Phosphatase Cancelled Troponin I Cancelled Total Protein Cancelled Albumin Cancelled Urine Color Urine Appearance Urine pH Ur Specific [place] Urine Protein Urine Glucose (UA) Urine Ketones Urine Blood Urine Nitrite Urine Bilirubin Urine Urobilinogen Ur Leukocyte Esterase Urine WBC (Auto) Urine RBC (Auto) Ur Epithelial Cells Urine Bacteria 04/30/18 04/30/18 14:48 16:17 WBC RBC Hgb Hct MCV MCH MCHC RDW Plt Count MPV Absolute Neuts (auto) Neutrophils % Lymphocytes % Monocytes % Eosinophils % Basophils % Nucleated RBC % PT with INR INR PTT (Actin FS) VBG pH 7.35 POC VBG pCO2 51.9 D POC VBG pO2 32.9 D Mixed VBG HCO3 28.2 H Sodium 137 Potassium 4.2 Chloride 100 Carbon Dioxide 28 Anion Gap 9 BUN 3 L Creatinine 0.6 L Creat Clearance w eGFR > 60 Random Glucose 94 D Lactic Acid Calcium 8.5 Total Bilirubin 0.8 AST 37 ALT 35 Alkaline Phosphatase 157 H Troponin I Total Protein 7.1 Albumin 3.1 L Urine Color Urine Appearance Urine pH Ur Specific [place] Urine Protein Urine Glucose (UA) Urine Ketones Urine Blood Urine Nitrite Urine Bilirubin Urine Urobilinogen Ur Leukocyte Esterase Urine WBC (Auto) Urine RBC (Auto) Ur Epithelial Cells Urine Bacteria ASSESSMENT/PLAN: Patient is a 62 year old male with a significant past medical history of paraplagia (h/o spinal fracture), prox. atrial fibrillation, neurogenic bladder , and recurrent UTIs. He presents to the ED today with complaints of suprapubic pain and discomfort. UTI: Rule out urinary tract infection, acute on chronic: Presents with suprapubic discomfort and pain. On condom cath and urine noted to be yellow, cloudy. UA no wbc, +nitrates, +bacteria. UC and blood cultures pending. Given zosyn in ED. ID consulted for further recommendations. Bladder ultrasound ordered and pending. Consider urology consult. Neuro: Paraplegia (h/o spinal fracture): bedbound. On Valium and morphine for chronic pain. Turn and position q 2 to protect bony prominences Skin: Right hip pressure sore, turn and position q2. daily wound care. Cardiology: Atrial Fibrillation with RVR history. No AC secondary to low CHADVASC score. EKG 04/30/18 shows NSR. Muscular/Skeletal: Paraplegia - chronic Monitor skin integrity, turn and position q 2, high risk for skin breakdown. Pt encouraged to shift his weight, will benefit from a bed trapeze. Pain Management - chronic Assessment/Plan: Continue morphine and Valium F.E.N. Fluids: Normal Saline at 100cc/hr maintenance fluids after fluid bolus Electrolytes: within normal limits Can continue regular diet, low salt Prophylaxis: DVT: heparin BID Disposition. requires inpatient hospitalization. Full Code. Visit type - Emergency Visit Emergency Visit: Yes ED Registration Date: 04/30/18 Care time: The patient presented to the Emergency Department on the above date and was hospitalized for further evaluation of their emergent condition. - New Patient This patient is new to me today: Yes Date on this admission: 04/30/18 - Critical Care Critical Care patient: No Hospitalist Screening - Colonoscopy Questionnaire Colonoscopy Questionnaire: Colonoscopy Questionnaire - Patient: 50 - 75 years old and never had a screening colonoscopy: Unknown History of colon or rectal polyps, or CA: Unknown History of IBD, Crohn's disease or UC: Unknown History of abdominal radiation therapy as a child: Unknown - Relative: 1 with colon or rectal CA, or polyps at age 60 or younger: Unknown Colon or rectal CA diagnosed at age 45 or younger: Unknown Multiple relatives with colon or rectal CA: Unknown - Outcome: Screening Result: Negative Screen
--- NOTE | 2018-04-30 18:15 | PDOC ---
Attending Attestation - Resident Resident Name: Iban Houston - ED Attending Attestation I have performed the following: The case was reviewed & discussed with the resident, I agree w/resident's findings & plan - HPI HPI: 04/30/18 18:15 62 year old male with a past medical history of spinal transection T4, recurrent UTI, and neurogenic bladder, who presents to the the emergency department for evaluation of suspected UTI. Pt reports groin pain radiating to his chest. Patient notes he has a catheter which has not been changed in several days. Pt reports associated symptoms of diarrhea, subjective fever, chills, and diaphoresis. Denies chest pain, SOB, headache, nausea, vomiting, and blood in urine or stool. - Physicial Exam PE: 04/30/18 18:15 NAD, well appearing, MMM, nl conjunctiva, anicteric; neck supple. lungs clear, RRR, abdomen soft diffusely tender, nonperitoneal.. condom catheter in place. No peripheral edema. normal color for ethnicity, WWP. +ulcer at right hip, dry. chronic lower back TTP Patient insensate below nipple line; no motor function below nipple line either. Patient with sensation and motor grossly intact from nipple-line up. - Medical Decision Making 04/30/18 18:12 62M with a history of spinal transection (~T4), neurogenic bladder, and recurrent UTI presenting with vague pain in suprapubic and groin area, limited sensation due to spinal injury, uses condom catheter. +hip ulcer as well vital with no fever, mild tachy. labs with mild lactic. no wbc ct. UA with nitrites, no WBCs, however bacteria present. f/u urine culture. due to catheter use and prior U culture with Pseudomonas, will treat with zosyn, IVF, repeat lactic. admit for medical management, abx for UTI sx, pain control and supportive care. pt made aware of impression and plan, amenable. 04/30/18 18:13
[2018-04-30] MEDS ORDERED: morphine SULFATE 10 MG/5 ML UNIT-DOSE CUP PO SCH (18:30)
[2018-04-30] MEDS: SODIUM CHLORIDE 1,000 ML IV SCH ×2 (18:44→20:53)
[2018-04-30] MEDS: diazePAM 5 MG TABLET PO PRN (22:18)
[2018-04-30] MEDS ORDERED: PIPERACILLIN/TAZOB 3.375 GM 3.375 GM in DEXTROSE 5%-WATER - 50 ML IVPB ONE (22:45)
[2018-04-30] MEDS ORDERED: PIPERACILLIN/TAZOBACTAM 3.375 GM VIAL IVPB ONE (22:49)
[2018-04-30] MEDS ORDERED: DEXTROSE 5%-WATER - 50 ML IVPB ONE (22:49)
[2018-04-30] MEDS: morphine SULFATE 10 MG/5 ML UNIT-DOSE CUP PO PRN (23:28)
[2018-05-01] MEDS: morphine SULFATE 10 MG/5 ML UNIT-DOSE CUP PO PRN ×3 (06:12→20:04)
[2018-05-01] MEDS: SODIUM CHLORIDE 1,000 ML IV SCH (06:13)
[2018-05-01 07:18] LABS: HEMOGLOBIN 14.4 GM/dL (11.7-16.9); MCH 31.6 pg (25.7-33.7); MCHC 33.4 g/dl (32.0-35.9); MEAN CELL VOLUME 94.3 fl (80-96); MEAN PLT VOLUME 9.5 fl (7.5-11.1); PLATELET COUNT 316 K/MM3 (134-434); RBC 4.56 M/mm3 (4.00-5.60); RDW 14.2 % (11.9-15.9)
[2018-05-01] MEDS: HEPARIN NA (PORCINE) 5,000 UNITS/ML 1ML VIAL SQ SCH ×2 (09:28→22:16)
[2018-05-01] MEDS: BACITRACIN 15 GM TUBE TOPICAL OINTMENT TP SCH (09:29)
[2018-05-01 11:51] LABS: URINE APPEARANCE CLEAR; URINE BILIRUBIN NEGATIVE (<2.0 mg/dL); URINE COLOR LTYELLOW; URINE GLUCOSE (UA) NEGATIVE (NEGATIVE); URINE KETONE NEGATIVE (NEGATIVE); URINE LEUK ESTERASE NEGATIVE (NEGATIVE); URINE NITRITE NEGATIVE (NEGATIVE); URINE PROTEIN NEGATIVE (NEGATIVE); URINE UROBILINOGEN NEGATIVE mg/dL (0.2-1.0)
--- NOTE | 2018-05-01 12:07 | EKG ---
Test Reason : Blood Pressure : / mmHG Vent. Rate : 095 BPM Atrial Rate : 095 BPM P-R Int : 144 ms QRS Dur : 080 ms QT Int : 348 ms P-R-T Axes : 070 072 080 degrees QTc Int : 437 ms NORMAL SINUS RHYTHM NORMAL ECG WHEN COMPARED WITH ECG OF 16-FEB-2018 17:49, NO SIGNIFICANT CHANGE WAS FOUND Confirmed by LASHON MCLAIN MD ([id number]) on 05/01/2018 12:07:20 PM Referred By: Confirmed By:LASHON MCLAIN MD
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
--- NOTE | 2018-05-01 12:27 | DS ---
Physical Examination Vital Signs: Vital Signs Temperature 97.8 F 05/01/18 09:07 Pulse Rate 61 05/01/18 09:07 Respiratory Rate 18 05/01/18 09:07 Blood Pressure 147/61 05/01/18 09:07 O2 Sat by Pulse Oximetry (%) 98 04/30/18 21:00 Constitutional: Yes: Well Nourished, No Distress, Calm Cardiovascular: Yes: Regular Rate and Rhythm. No: Gallop, Murmur Respiratory: Yes: Regular, CTA Bilaterally. No: Accessory Muscle Use, SOB, Tachypnea, Wheezes Gastrointestinal: Yes: WNL, Normal Bowel Sounds, Soft. No: Distention, Tenderness Renal/: Yes: Incontinence Edema: No Integumentary: Yes: Pressure Ulcer (stage 2 decubitus on right abdomen) Neurological: Yes: Alert, Oriented, Pre-Existing Deficit (paraplegia) Psychiatric: Yes: WNL, Alert, Oriented Labs: CBC, BMP 05/01/18 06:15 04/30/18 16:17 Discharge Summary Reason For Visit: PARAPLEGIA; NEUROGENIC BLADDER; ACUTE UTI Current Active Problems Neurogenic bladder (Acute) PAF (paroxysmal atrial fibrillation) (Acute) UTI (urinary tract infection) (Acute) Hospital Course: is a 62 year old male who comes in with complaints of suprapubic pain and evaluation for his "bed sore". Lactic acid at admission around 3 which resolved s/p ivf. otherwise, all work up neg. repeat UA neg. wbc 11 this am, suspect due to dehydration. pt reports resolution of suprapubic pain today. He reports he is feeling well, and wants to go home. Pt denies any further complaints. unable to perform pelvic/bladder US due to pt contracted per radiology dept. Case discussed w/ ID, cleared for d/c. Case discussed with PCP, agrees w/ plan. f/u as directed. Informed SW to set up VS for care of pressure ulcer on his abdomen. Condition: Good - Instructions Diet, Activity, Other Instructions: resume prev diet, activity contact pcp if any worsening symptoms f/u as directed Referrals: Juan Manuel Kang MD [Primary Care Provider] - 1 Week Disposition: VNS/HOME HEALTH CARE - Home Medications Comprehensive Discharge Medication List: Ambulatory Orders Diazepam [Valium] 10 mg PO TID PRN #30 tablet MDD 30mg 09/16/16 Morphine 10 mg/5 ml Liquid [Morphine 10 mg/5 mL Liquid -] 4 mg PO Q4H 02/16/18 Bacitracin - [Bacitracin Topical Ointment -] 1 applic TP DAILY #1 tube 02/19/18
[2018-05-01] MEDS ORDERED: DEXTROSE 5%-WATER - 50 ML IVPB ONE ×2 (13:23→20:02)
[2018-05-01] MEDS ORDERED: PIPERACILLIN/TAZOBACTAM 3.375 GM VIAL IVPB ONE ×2 (13:23→20:02)
[2018-05-01] MEDS: PIPERACILLIN/TAZOB 3.375 GM 3.375 GM in DEXTROSE 5%-WATER - 50 ML IVPB SCH ×2 (13:33→20:05)
[2018-05-01] MEDS: diazePAM 5 MG TABLET PO PRN ×2 (16:09→22:16)
[2018-05-01 17:33] LABS: BASO % 0.3 % (0-2.0); EOS % 1.2 % (0-4.5); HEMATOCRIT 40.4 % (35.4-49); HEMOGLOBIN 13.6 GM/dL (11.7-16.9); MCH 31.9 pg (25.7-33.7); MCHC 33.8 g/dl (32.0-35.9); MEAN CELL VOLUME 94.4 fl (80-96); MEAN PLT VOLUME 9.2 fl (7.5-11.1); MONO % 9.4 % (3.8-10.2); NEUT % 79.1 % (42.8-82.8); PLATELET COUNT 329 K/MM3 (134-434); RBC 4.28 M/mm3 (4.00-5.60); RDW 14.4 % (11.9-15.9); WHITE BLOOD COUNT 9.9 K/mm3 (4.0-10.0)
[2018-05-01 18:02] LABS: ANION GAP 9 MMOL/L (8-16); BLOOD UREA NITROGEN 5 mg/dL (7-18); CALCIUM 8.3 mg/dL (8.5-10.1); CHLORIDE 105 mmol/L (98-107); CO2 25 mmol/L (21-32); CREATININE 0.5 mg/dL (0.7-1.3); GLUCOSE,RANDOM 103 mg/dL (74-106); SODIUM 139 mmol/L (136-145)
[2018-05-01] MEDS ORDERED: INSULIN (NOVOLOG) ASPART 100 UNITS/ML 10ML VIAL ONE (19:08)
[2018-05-02] MEDS ORDERED: PIPERACILLIN/TAZOBACTAM 3.375 GM VIAL IVPB ONE ×2 (00:16→10:14)
[2018-05-02] MEDS ORDERED: DEXTROSE 5%-WATER - 50 ML IVPB ONE ×2 (00:17→10:14)
[2018-05-02] MEDS: morphine SULFATE 10 MG/5 ML UNIT-DOSE CUP PO PRN ×4 (00:19→21:59)
[2018-05-02] MEDS ORDERED: DOCUSATE SODIUM 100 MG CAPSULE (FP) PO ONE (01:30)
[2018-05-02] MEDS: PIPERACILLIN/TAZOB 3.375 GM 3.375 GM in DEXTROSE 5%-WATER - 50 ML IVPB SCH ×2 (01:33→10:25)
[2018-05-02] MEDS: diazePAM 5 MG TABLET PO PRN ×3 (06:51→21:58)
[2018-05-02] MEDS: HEPARIN NA (PORCINE) 5,000 UNITS/ML 1ML VIAL SQ SCH ×2 (10:26→21:57)
--- NOTE | 2018-05-02 11:49 | PN ---
Progress Note, Physician Chief Complaint: c/o abd pain - Current Medication List Current Medications: Active Medications Bacitracin (Bacitracin -) 1 applic TP DAILY ZAIRA Last Admin: 05/01/18 09:29 Dose: 1 applic Diazepam (Valium -) 10 mg PO TID PRN PRN Reason: muscle spasms Last Admin: 05/02/18 06:51 Dose: 10 mg Heparin Sodium (Porcine) (Heparin -) 5,000 unit SQ BID ZAIRA Last Admin: 05/02/18 10:26 Dose: Not Given Piperacillin Sod/Tazobactam (Sod 3.375 gm/ Dextrose) 50 mls @ 100 mls/hr IVPB Q8H-IV ZAIRA; Protocol Last Admin: 05/02/18 10:25 Dose: 100 mls/hr Morphine Sulfate (Morphine 10 Mg/5 Ml Liquid) 4 mg PO Q4H PRN PRN Reason: PAIN LEVEL 7 - 10 Last Admin: 05/02/18 04:14 Dose: 4 mg - Objective Vital Signs: Vital Signs Temperature 98.6 F 05/02/18 09:00 Pulse Rate 55 L 05/02/18 09:00 Respiratory Rate 18 05/02/18 09:00 Blood Pressure 127/67 05/02/18 09:00 O2 Sat by Pulse Oximetry (%) 93 L 05/02/18 09:00 Constitutional: Yes: Well Nourished, No Distress, Calm Cardiovascular: Yes: Regular Rate and Rhythm. No: Gallop, Murmur Respiratory: Yes: Regular, CTA Bilaterally. No: Accessory Muscle Use, SOB, Tachypnea, Wheezes Gastrointestinal: Yes: WNL, Normal Bowel Sounds, Soft. No: Distention, Tenderness Renal/: Yes: Incontinence Edema: No Integumentary: Yes: Pressure Ulcer (stage 2 decubitus on right abdomen) Neurological: Yes: Alert, Oriented, Pre-Existing Deficit (paraplegia) Psychiatric: Yes: WNL, Alert, Oriented Labs: CBC, BMP 05/01/18 16:50 05/01/18 16:50 INR, PTT INR 0.92 (0.83-1.09) 04/30/18 14:30 Problem List - Problems (1) Abdominal pain Assessment/Plan: KUB shows Ileus will F/U GI recommendations, CT scan abdomen Code(s): R10.9 - UNSPECIFIED ABDOMINAL PAIN Qualifiers: Abdominal location: unspecified location Qualified Code(s): R10.9 - Unspecified abdominal pain (2) Paraplegia Assessment/Plan: post traumatic Code(s): G82.20 - PARAPLEGIA, UNSPECIFIED (3) Neurogenic bladder Assessment/Plan: Due to paraplegia Code(s): N31.9 - NEUROMUSCULAR DYSFUNCTION OF BLADDER, UNSPECIFIED (4) Decubital ulcer Assessment/Plan: wound care Code(s): L89.90 - PRESSURE ULCER OF UNSPECIFIED SITE, UNSPECIFIED STAGE
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
[2018-05-02] MEDS: BACITRACIN 15 GM TUBE TOPICAL OINTMENT TP SCH ×2 (17:51→18:03)
[2018-05-03] MEDS: diazePAM 5 MG TABLET PO PRN ×3 (06:28→21:02)
[2018-05-03] MEDS: morphine SULFATE 10 MG/5 ML UNIT-DOSE CUP PO PRN ×3 (06:28→21:02)
[2018-05-03] MEDS: HEPARIN NA (PORCINE) 5,000 UNITS/ML 1ML VIAL SQ SCH ×2 (09:43→21:01)
--- NOTE | 2018-05-03 11:26 | PN ---
Progress Note, Physician Chief Complaint: BNo new complaints c/o abd pain - Current Medication List Current Medications: Active Medications Bacitracin (Bacitracin -) 1 applic TP DAILY [facility] Last Admin: 05/02/18 18:03 Dose: Not Given Diazepam (Valium -) 10 mg PO TID PRN PRN Reason: muscle spasms Last Admin: 05/03/18 06:28 Dose: 10 mg Heparin Sodium (Porcine) (Heparin -) 5,000 unit SQ BID [facility] Last Admin: 05/03/18 09:43 Dose: Not Given Morphine Sulfate (Morphine 10 Mg/5 Ml Liquid) 4 mg PO Q4H PRN PRN Reason: PAIN LEVEL 7 - 10 Last Admin: 05/03/18 06:28 Dose: 4 mg - Objective Vital Signs: Vital Signs Temperature 97.9 F 05/03/18 09:00 Pulse Rate 62 05/03/18 09:00 Respiratory Rate 18 05/03/18 09:00 Blood Pressure 148/79 05/03/18 09:00 O2 Sat by Pulse Oximetry (%) 93 L 05/02/18 09:00 Constitutional: : Well Nourished, No Distress, Calm NECK: No JVD No Bruit Respiratory: Regular, CTA Bilaterally. No: Accessory Muscle Use, SOB, Tachypnea , Wheezes Cardiovascular: Regular Rate and Rhythm. No: Gallop, Murmur Gastrointestinal: WNL, Normal Bowel Sounds, Soft. No: Distention, Tenderness Renal/: Incontinence LE : No Edema, Pulses +, contractures Integumentary: Pressure Ulcer (stage 2 decubitus on right abdomen) Neurological: Alert, Oriented, Pre-Existing Deficit (paraplegia) Psychiatric: WNL, Alert, Oriented Labs: CBC, BMP 05/01/18 16:50 05/01/18 16:50 INR, PTT INR 0.92 (0.83-1.09) 04/30/18 14:30 - ....Imaging Cat Scan: Report Reviewed (Abd: No obstruction Occluded Dital a abdominal aorta Pulmonary nodule) Problem List - Problems (1) Abdominal pain Assessment/Plan: still c/o abd pain but improved Ct abd no obstruction Code(s): R10.9 - UNSPECIFIED ABDOMINAL PAIN Qualifiers: Abdominal location: unspecified location Qualified Code(s): R10.9 - Unspecified abdominal pain (2) Paraplegia Assessment/Plan: post traumatic Code(s): G82.20 - PARAPLEGIA, UNSPECIFIED (3) Neurogenic bladder Assessment/Plan: Due to paraplegia Code(s): N31.9 - NEUROMUSCULAR DYSFUNCTION OF BLADDER, UNSPECIFIED (4) Decubital ulcer Assessment/Plan: wound care Code(s): L89.90 - PRESSURE ULCER OF UNSPECIFIED SITE, UNSPECIFIED STAGE (5) Pulmonary nodule Assessment/Plan: Pulmonary consultation, ? Rt lower lobe nodule concerning neoplasm h/O smoking Code(s): R91.1 - SOLITARY PULMONARY NODULE (6) Stenosis of aorta Assessment/Plan: Ct shows stenosis of Distal Aorta, asymptomatic, f/u Vasculr consult. Code(s): Q25.3 - SUPRAVALVULAR AORTIC STENOSIS
--- NOTE | 2018-05-03 11:41 | PN ---
Progress Note, Physician History of Present Illness: feels much better no complaints - Current Medication List Current Medications: Active Medications Bacitracin (Bacitracin -) 1 applic TP DAILY [facility] Last Admin: 05/02/18 18:03 Dose: Not Given Diazepam (Valium -) 10 mg PO TID PRN PRN Reason: muscle spasms Last Admin: 05/03/18 06:28 Dose: 10 mg Heparin Sodium (Porcine) (Heparin -) 5,000 unit SQ BID [facility] Last Admin: 05/03/18 09:43 Dose: Not Given Morphine Sulfate (Morphine 10 Mg/5 Ml Liquid) 4 mg PO Q4H PRN PRN Reason: PAIN LEVEL 7 - 10 Last Admin: 05/03/18 06:28 Dose: 4 mg - Objective Vital Signs: Vital Signs Temperature 97.9 F 05/03/18 09:00 Pulse Rate 62 05/03/18 09:00 Respiratory Rate 18 05/03/18 09:00 Blood Pressure 148/79 05/03/18 09:00 O2 Sat by Pulse Oximetry (%) 93 L 05/03/18 09:00 Constitutional: Yes: No Distress, Calm Eyes: Yes: Conjunctiva Clear Cardiovascular: Yes: Pulse Irregular Respiratory: Yes: Regular, CTA Bilaterally Gastrointestinal: Yes: Normal Bowel Sounds, Soft Musculoskeletal: Yes: Other Extremities: Yes: Other Labs: CBC, BMP 05/01/18 16:50 05/01/18 16:50 INR, PTT INR 0.92 (0.83-1.09) 04/30/18 14:30 Assessment/Plan Problem List - Problems (1) Lung nodule Code(s): R91.1 - SOLITARY PULMONARY NODULE (2) Decubital ulcer Code(s): L89.90 - PRESSURE ULCER OF UNSPECIFIED SITE, UNSPECIFIED STAGE (3) Paraplegia Code(s): G82.20 - PARAPLEGIA, UNSPECIFIED all cx negative will stop abx and watch rest as per the team plan was for discharge
--- NOTE | 2018-05-03 11:51 | PN ---
GI Progress Note Subjective: Pelvic pain improved Preliminary CT scan report suggests total occlusion of the aortal distal to the FRANDY, COPD changes a suspicious right lung nodule, multiple nodules in the LUQ - Objective Vital Signs: Vital Signs Temperature 97.9 F 05/03/18 09:00 Pulse Rate 62 05/03/18 09:00 Respiratory Rate 18 05/03/18 09:00 Blood Pressure 148/79 05/03/18 09:00 O2 Sat by Pulse Oximetry (%) 93 L 05/03/18 09:00 Constitutional: Calm Eyes: No: Sclera Icterus Cardiovascular: Yes: Regular Rate and Rhythm Respiratory: Yes: CTA Bilaterally Gastrointestinal Inspection: No: Distention ...Auscultate: Yes: Normoactive Bowel Sounds ...Palpate: No: Tenderness Edema: No (No LE edema) Neurological: Yes: Alert Labs: CBC, BMP 05/01/18 16:50 05/01/18 16:50 INR, PTT INR 0.92 (0.83-1.09) 04/30/18 14:30 Hepatic Panel Total Bilirubin 0.8 mg/dL (0.2-1.0) 04/30/18 16:17 AST 37 U/L (15-37) 04/30/18 16:17 ALT 35 U/L (12-78) 04/30/18 16:17 Alkaline Phosphatase 157 U/L (45-117) H 04/30/18 16:17 Albumin 3.1 g/dl (3.4-5.0) L 04/30/18 16:17 - ....Imaging Cat Scan: Report Reviewed Problem List - Problems (1) Abdominal pain Assessment/Plan: Pelvic pain resolved Code(s): R10.9 - UNSPECIFIED ABDOMINAL PAIN Qualifiers: Abdominal location: unspecified location Qualified Code(s): R10.9 - Unspecified abdominal pain (2) Constipation Assessment/Plan: Miralax 17g daily Code(s): K59.00 - CONSTIPATION, UNSPECIFIED (3) Occlusion of aorta Assessment/Plan: Consider vascular surgery evaluation to comment on this and await official CT read Code(s): I74.10 - EMBOLISM AND THROMBOSIS OF UNSPECIFIED PARTS OF AORTA (4) Lung nodule Assessment/Plan: Former smoker Consider Pulm eval Code(s): R91.1 - SOLITARY PULMONARY NODULE
[2018-05-03] MEDS: BACITRACIN 15 GM TUBE TOPICAL OINTMENT TP SCH (13:22)
[2018-05-04] MEDS: morphine SULFATE 10 MG/5 ML UNIT-DOSE CUP PO PRN ×3 (02:05→21:57)
[2018-05-04] MEDS: BACITRACIN 15 GM TUBE TOPICAL OINTMENT TP SCH (11:09)
[2018-05-04] MEDS: HEPARIN NA (PORCINE) 5,000 UNITS/ML 1ML VIAL SQ SCH ×2 (11:09→22:01)
--- NOTE | 2018-05-04 11:12 | DS ---
Physical Examination Vital Signs: Vital Signs Temperature 97.7 F 05/04/18 06:00 Pulse Rate 50 L 05/04/18 06:00 Respiratory Rate 18 05/04/18 06:00 Blood Pressure 129/70 05/04/18 06:00 O2 Sat by Pulse Oximetry (%) 93 L 05/03/18 09:00 Constitutional: Yes: Well Nourished, No Distress, Calm Cardiovascular: Yes: WNL, Regular Rate and Rhythm Respiratory: Yes: WNL, Regular, CTA Bilaterally Gastrointestinal: Yes: WNL, Normal Bowel Sounds, Soft. No: Distention, Tenderness, Vomiting Edema: No Wound/Incision: Yes: Open to air (right abdomen stage 2 pressure ulcer) Neurological: Yes: Alert, Oriented, Pre-Existing Deficit (paraplegia) Psychiatric: Yes: Alert, Oriented Labs: CBC, BMP 05/01/18 16:50 05/01/18 16:50 Discharge Summary Reason For Visit: PARAPLEGIA; NEUROGENIC BLADDER; ACUTE UTI Current Active Problems Decubital ulcer (Acute) Lung nodule (Acute) Neurogenic bladder (Acute) Occlusion of aorta (Acute) PAF (paroxysmal atrial fibrillation) (Acute) Pulmonary nodule (Acute) Stenosis of aorta (Acute) UTI (urinary tract infection) (Acute) Hospital Course: is a 62 year old male who comes in with complaints of suprapubic pain and evaluation for his "bed sore". Lactic acid at admission around 3 which resolved s/p ivf. otherwise, all work up neg. repeat UA neg. wbc 11 this am, suspect due to dehydration. pt reports resolution of suprapubic pain today. He reports he is feeling well, and wants to go home. Pt denies any further complaints. unable to perform pelvic/bladder US due to pt contracted per radiology dept. Case discussed w/ ID, cleared for d/c. Case discussed with PCP, agrees w/ plan. f/u as directed. Informed SW to set up VS for care of pressure ulcer on his abdomen. 05/02 Pt c/o LLQ pain, GI was consulted by covering physician, Abd CT- abd aorta stenosis, pulm nodules. Pt evaluated by , vascular surgery who reports this is a chronic finding, no intervention needed. Pulm consulted regarding pulm nodules. lung nodule has been present since 2011, has had a PET scan previously but unknown results, pulm recommends PET scan as outpt to determine avidity - if PET avid, will need tissue biopsy - no further inpatient work up at this time by pulm. 05/04 vitals stable. labs unremarkable. Pt seen and evaluated at bedside, pt reports hesitancy in leaving, reports "i don't feel completely well, I might get sick". Pt informed that he has been cleared for discharge. SW informed of pt 's discharge. advise outpt f/u as directed. Condition: Good - Instructions Diet, Activity, Other Instructions: resume prev diet, activity contact pcp if any worsening symptoms f/u as directed Referrals: Maddie Gonzalez MD [Staff Physician] - Oliver Menjivar MD [Staff Physician] - Juan Manuel Kang MD [Primary Care Provider] - 1 Week Disposition: VNS/HOME HEALTH CARE - Home Medications Comprehensive Discharge Medication List: Ambulatory Orders Diazepam [Valium] 10 mg PO TID PRN #30 tablet MDD 30mg 09/16/16 Morphine 10 mg/5 ml Liquid [Morphine 10 mg/5 mL Liquid -] 4 mg PO Q4H 02/16/18 Bacitracin - [Bacitracin Topical Ointment -] 1 applic TP DAILY #1 tube 02/19/18
[2018-05-04] MEDS: diazePAM 5 MG TABLET PO PRN ×2 (12:00→21:59)
--- NOTE | 2018-05-04 13:35 | PN ---
Progress Note, Physician History of Present Illness: today the patient does not feel to well vitals and lab has been stable feels very weak - Current Medication List Current Medications: Active Medications Bacitracin (Bacitracin -) 1 applic TP DAILY [facility] Last Admin: 05/04/18 11:09 Dose: Not Given Diazepam (Valium -) 10 mg PO TID PRN PRN Reason: muscle spasms Last Admin: 05/04/18 12:00 Dose: 10 mg Heparin Sodium (Porcine) (Heparin -) 5,000 unit SQ BID [facility] Last Admin: 05/04/18 11:09 Dose: Not Given Morphine Sulfate (Morphine 10 Mg/5 Ml Liquid) 4 mg PO Q4H PRN PRN Reason: PAIN LEVEL 7 - 10 Last Admin: 05/04/18 11:59 Dose: 4 mg - Objective Vital Signs: Vital Signs Temperature 97.7 F 05/04/18 06:00 Pulse Rate 50 L 05/04/18 06:00 Respiratory Rate 18 05/04/18 06:00 Blood Pressure 129/70 05/04/18 06:00 O2 Sat by Pulse Oximetry (%) 93 L 05/03/18 09:00 Constitutional: Yes: Mild Distress Cardiovascular: Yes: Pulse Irregular Respiratory: Yes: Regular, CTA Bilaterally Gastrointestinal: Yes: Normal Bowel Sounds, Soft Musculoskeletal: Yes: Other Extremities: Yes: Other Neurological: Yes: Alert, Oriented Psychiatric: Yes: Alert, Oriented Labs: CBC, BMP 05/01/18 16:50 05/01/18 16:50 INR, PTT INR 0.92 (0.83-1.09) 04/30/18 14:30 Assessment/Plan Problem List - Problems (1) Lung nodule Code(s): R91.1 - SOLITARY PULMONARY NODULE (2) Decubital ulcer Code(s): L89.90 - PRESSURE ULCER OF UNSPECIFIED SITE, UNSPECIFIED STAGE (3) Paraplegia Code(s): G82.20 - PARAPLEGIA, UNSPECIFIED 4 abd pain plan continue to monitor nutrition rest as per the team
[2018-05-04 13:59] LABS: BASO % 0.5 % (0-2.0); EOS % 1.7 % (0-4.5); HEMATOCRIT 39.9 % (35.4-49); HEMOGLOBIN 13.5 GM/dL (11.7-16.9); LYMPH % 9.6 % (8-40); MCH 31.6 pg (25.7-33.7); MCHC 33.8 g/dl (32.0-35.9); MEAN CELL VOLUME 93.3 fl (80-96); MEAN PLT VOLUME 9.1 fl (7.5-11.1); MONO % 10.9 % (3.8-10.2); NEUT % 77.3 % (42.8-82.8); PLATELET COUNT 309 K/MM3 (134-434); RBC 4.28 M/mm3 (4.00-5.60); RDW 14.2 % (11.9-15.9); WHITE BLOOD COUNT 10.9 K/mm3 (4.0-10.0)
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
[2018-05-04 14:38] LABS: BLOOD UREA NITROGEN 7 mg/dL (7-18); CREATININE 0.4 mg/dL (0.7-1.3); GLUCOSE,RANDOM 107 mg/dL (74-106)
[2018-05-04 14:39] LABS: ANION GAP 11 MMOL/L (8-16); CALCIUM 8.7 mg/dL (8.5-10.1); CHLORIDE 104 mmol/L (98-107); CO2 27 mmol/L (21-32); POTASSIUM 3.5 mmol/L (3.5-5.1); SODIUM 142 mmol/L (136-145)
[2018-05-04 15:39] LABS: ANISOCYTOSIS 1+; MACROCYTOSIS 1+; PLATELET ESTIMATE NORMAL
[2018-05-05] MEDS: morphine SULFATE 10 MG/5 ML UNIT-DOSE CUP PO PRN ×2 (04:12→09:09)
[2018-05-05] MEDS: HEPARIN NA (PORCINE) 5,000 UNITS/ML 1ML VIAL SQ SCH (09:11)
--- NOTE | 2018-05-05 09:39 | PN ---
Progress Note, Physician - Current Medication List Current Medications: Active Medications Bacitracin (Bacitracin -) 1 applic TP DAILY [facility] Last Admin: 05/04/18 11:09 Dose: Not Given Diazepam (Valium -) 10 mg PO TID PRN PRN Reason: muscle spasms Last Admin: 05/04/18 21:59 Dose: 10 mg Heparin Sodium (Porcine) (Heparin -) 5,000 unit SQ BID [facility] Last Admin: 05/05/18 09:11 Dose: 5,000 unit Morphine Sulfate (Morphine 10 Mg/5 Ml Liquid) 4 mg PO Q4H PRN PRN Reason: PAIN LEVEL 7 - 10 Last Admin: 05/05/18 09:09 Dose: 4 mg - Objective Vital Signs: Vital Signs Temperature 98.2 F 05/05/18 06:00 Pulse Rate 59 L 05/05/18 06:00 Respiratory Rate 20 05/05/18 06:00 Blood Pressure 142/73 05/05/18 06:00 O2 Sat by Pulse Oximetry (%) 94 L 05/04/18 21:00 Constitutional: Yes: Well Nourished, No Distress, Calm Cardiovascular: Yes: WNL, Regular Rate and Rhythm. No: Murmur Respiratory: Yes: WNL, Regular, CTA Bilaterally Gastrointestinal: Yes: WNL, Normal Bowel Sounds, Soft Genitourinary: Yes: WNL Edema: No Neurological: Yes: WNL, Alert, Oriented, Pre-Existing Deficit (paraplegia) Psychiatric: Yes: WNL, Alert, Oriented Labs: CBC, BMP 05/04/18 13:50 05/04/18 13:50 INR, PTT INR 0.92 (0.83-1.09) 04/30/18 14:30 Problem List - Problems (1) Decubital ulcer Code(s): L89.90 - PRESSURE ULCER OF UNSPECIFIED SITE, UNSPECIFIED STAGE (2) Lung nodule Code(s): R91.1 - SOLITARY PULMONARY NODULE (3) Neurogenic bladder Code(s): N31.9 - NEUROMUSCULAR DYSFUNCTION OF BLADDER, UNSPECIFIED (4) Stenosis of aorta Code(s): Q25.3 - SUPRAVALVULAR AORTIC STENOSIS (5) Paraplegia Code(s): G82.20 - PARAPLEGIA, UNSPECIFIED (6) Abdominal pain Code(s): R10.9 - UNSPECIFIED ABDOMINAL PAIN Qualifiers: Abdominal location: unspecified location Qualified Code(s): R10.9 - Unspecified abdominal pain Assessment/Plan Pt seen and evaluated. Pt in no acute distress, denies any pain, abdominal pain , chest pain, sob, nb/v/d. He reports he is leaving today. Has been cleared for discharge. Appeal pending.
[2018-05-05] MEDS: diazePAM 5 MG TABLET PO PRN (09:47)
[2018-05-05 09:50] VITALS: BP 108/70; PULSE 81; TEMP 98.6
== END 2018-05-05 13:09 | disposition home health service (06) | DRG 690 ==
LOC: JER 13:45 → JERBED 15:21 → J5S 19:49
PROVIDERS: ADMIT Internal Medicine; ATTEND Specialist
DX: N39.0 Urinary tract infection, site not specified (principal); G82.20 Paraplegia, unspecified; I74.10 Embolism and thrombosis of unspecified parts of aorta; Z87.440 Personal history of urinary (tract) infections; I48.0 Paroxysmal atrial fibrillation; R91.1 Solitary pulmonary nodule; K59.00 Constipation, unspecified; L89.222 Pressure ulcer of left hip, stage 2
CPT/HCPCS: 36415; 71045-TC-FY; 74018-TC-FY; 74178-TC; 76856-TC; 80048; 80053; 81003; 81015; 82803; 83605; 85025; 85027; 85610; 85730; 87040; 87086; 93005; 93010; 99283-25; J1644; J7030

== ENCOUNTER 2018-05-28 15:41 | Inpatient (IN) | payer OTHER, BC ==
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
--- NOTE | 2018-05-28 16:38 | PDOC ---
Attending Attestation - HPI HPI: 05/28/18 17:45 The patient is a 63 year old male with a past medical history of spinal transection T4, paroxysmal afib, neurogenic bladder with recurrent UTIs who presents to the the emergency department for evaluation of left ankle swelling and redness with bilateral leg pain. Patient endorses associated symptoms of chest pain and headache. The patient denies shortness of breath, dizziness, fever, chills, nausea, vomiting, diarrhea and constipation. Denies dysuria, frequency, urgency and hematuria. <Jim Ferris - Last Filed: 05/28/18 17:45> - Resident Resident Name: Donell Vasquez - ED Attending Attestation I have performed the following: I have examined & evaluated the patient, The case was reviewed & discussed with the resident, I agree w/resident's findings & plan, Exceptions are as noted - Physicial Exam PE: 05/28/18 21:40 Agree with resident's physical exam. - Medical Decision Making 05/28/18 21:40 63 years old paraplegic with fractured left ankle and superficial cellulitis. Likely nonoperative injury given patient's immobility posterior splint placed Patient covered with antibiotics we'll admit to medicine for further management. <Harley Hanna - Last Filed: 05/28/18 21:40> Attestations - Attestations Documentation prepared by Jim Ferris, acting as medical physics professor for Harley Hanna MD. <Jim Ferris - Last Filed: 05/28/18 17:45>
[2018-05-28 17:00] LABS: EOS % 0.5 % (0-4.5); HEMATOCRIT 43.3 % (35.4-49); HEMOGLOBIN 14.6 GM/dL (11.7-16.9); LYMPH % 4.8 % (8-40); MCHC 33.6 g/dl (32.0-35.9); MEAN CELL VOLUME 92.2 fl (80-96); MONO % 7.2 % (3.8-10.2); NEUT % 87.5 % (42.8-82.8); PLATELET COUNT 432 K/MM3 (134-434); RDW 14.1 % (11.9-15.9); WHITE BLOOD COUNT 15.6 K/mm3 (4.0-10.0)
[2018-05-28 17:24] LABS: ALK PHOS 125 U/L (45-117); ANION GAP 6 MMOL/L (8-16); BILIRUBIN,TOTAL 0.6 mg/dL (0.2-1); BLOOD UREA NITROGEN 6 mg/dL (7-18); CALCIUM 8.8 mg/dL (8.5-10.1); CHLORIDE 101 mmol/L (98-107); CO2 27 mmol/L (21-32); CREATININE 0.6 mg/dL (0.55-1.3); GLUCOSE,RANDOM 101 mg/dL (74-106); POTASSIUM 4.1 mmol/L (3.5-5.1); SGOT/AST 18 U/L (15-37); SGPT/ALT 18 U/L (13-61); SODIUM 134 mmol/L (136-145); TOT PROT 7.5 g/dl (6.4-8.2)
[2018-05-28 18:37] LABS: PLATELET ESTIMATE SLT INCREASE
[2018-05-28] MEDS ORDERED: VANCOMYCIN 1 GRAM (PRE-DOCKED) 1,000 MG/250 ML BAG IVPB ONE (20:24)
[2018-05-28] MEDS: VANCOMYCIN 1,000 MG in DEXTROSE 5%-WATER - 250 ML IVPB SCH (20:30)
--- NOTE | 2018-05-28 20:40 | HP ---
Admitting History and Physical - Primary Care Physician PCP: Juan Manuel Kang - Admission Chief Complaint: Left Ankle Redness and Swelling History of Present Illness: This is a 63 y/o man with a past medical history of Spinal Fracture (w/ T2-T4 cord transection), Neurogenic Bladder (w/ recurrent UTI), Paroxysmal Afib (not on AC). Who presents to the ED from home with left ankle deformity/ discoloration. Patient reports that before coming to the ED, he looked at his leg and noticed left ankle swelling and redness. Patient reports he typically does not have sensation to his legs post spinal transection, however patient reports he is now having mild pain sensation to this area. Patient had reported to the ED resident having a headache and intermittent chest pain he attributes to his positioning in bed now resolved. Patient denies fever, chills, cough, N/ V. 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 due to accidental fall (T2 spinal fracture)) Gastrointestinal: Yes: Other (Hepatic hemangiomas) Renal/: Yes: Other (Bladder dysfunction) Heme/Onc: Yes: Other (Neurogenic bladder w/ h/o UTI) Infectious Disease: Yes: Other (multiple UTIs Pseudomonas) Musculoskeletal: Yes: Paraplegia, Other (Chronic pain) - Past Surgical History Past Surgical History: Yes: Splenectomy Additional Past Surgical History: Right Wrist s/p Fusion - Smoking History Smoking history: Former smoker Have you smoked in the past 12 months: No Aproximately how many cigarettes per day: 3 If you are a former smoker, when did you quit?: 1985 - Alcohol/Substance Use Hx Alcohol Use: Yes (social) History of Substance Use: reports: Marijuana - Social History Usual Living Arrangement: Yes: Alone 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)) History of Recent Travel: No Home Medications - Allergies Allergies/Adverse Reactions: Allergies Allergy/AdvReac Type Severity Reaction Status Date / Time No Known Allergies Allergy Verified 05/28/18 16:02 - Home Medications Home Medications: Ambulatory Orders Diazepam [Valium] 10 mg PO TID PRN #30 tablet MDD 30mg 09/16/16 Family Disease History - Family Disease History Family Disease History: Heart Disease: Father Review of Systems - Review of Systems Constitutional: reports: No Symptoms Eyes: reports: No Symptoms HENT: reports: No Symptoms Neck: reports: No Symptoms Cardiovascular: reports: Chest Pain Respiratory: reports: No Symptoms Gastrointestinal: reports: No Symptoms Breasts: reports: No Symptoms Reported Musculoskeletal: reports: Extremity Pain (left ankle) Integumentary: reports: Erythema Neurological: reports: Other (paraplegia) Endocrine: reports: No Symptoms Hematology/Lymphatic: reports: No Symptoms Psychiatric: reports: No Symptoms Physical Examination Vital Signs: Vital Signs Temperature 97.7 F 05/28/18 16:03 Pulse Rate 85 05/28/18 16:03 Respiratory Rate 16 05/28/18 16:03 Blood Pressure 118/67 05/28/18 16:03 O2 Sat by Pulse Oximetry (%) 96 05/28/18 16:03 Constitutional: Yes: Anxious, Mild Distress Eyes: Yes: Conjunctiva Clear, EOM Intact, PERRL HENT: Yes: WNL, Atraumatic, Normocephalic Neck: Yes: WNL, Supple, Trachea Midline Cardiovascular: Yes: WNL, Regular Rate and Rhythm, S1, S2 Respiratory: Yes: WNL, Regular, CTA Bilaterally Gastrointestinal: Yes: WNL, Normal Bowel Sounds, Soft Breast(s): Yes: WNL Musculoskeletal: Yes: Joint Swelling (left ankle), Muscle Weakness, Other ( flaccid paralysis to lower extremities) Extremities: Yes: Deformity (left ankle), Erythema (left ankle) Edema: Yes Edema: LLE: 1+ Peripheral Pulses WNL: Yes Neurological: Yes: Alert Psychiatric: Yes: WNL, Alert, Oriented Labs: CBC, BMP 05/28/18 16:25 05/28/18 16:25 Current Medications Generic Name Dose Route Start Last Admin Trade Name Leobardoq PRN Reason Stop Dose Admin Acetaminophen 650 mg 05/29/18 01:35 Tylenol - PO Q6H PRN PAIN OR FEVER Diazepam 5 mg 05/29/18 01:33 05/29/18 01:40 Valium - PO 5 mg Q8H PRN Administration MUSCLE SPASMS Heparin Sodium (Porcine) 5,000 unit 05/28/18 22:00 05/29/18 10:09 Heparin - SQ 5,000 unit BID ZAIRA Administration Vancomycin HCl 1,000 mg/ 250 mls @ 166.667 mls/hr 05/28/18 20:00 05/29/18 08: 10 Dextrose IVPB 166.667 mls/hr Q12H ZAIRA Administration Protocol Vancomycin HCl 1,000 mg/ 250 mls @ 200 mls/hr 05/29/18 10:00 Dextrose IVPB Q24H ZAIRA Protocol Vancomycin HCl 1,000 mg/ 250 mls @ 166.667 mls/hr 05/29/18 20:30 Dextrose IVPB 05/29/18 21:59 ONCE ONE Morphine Sulfate 4 mg 05/29/18 09:54 05/29/18 10:09 Morphine 10 Mg/5 Ml Liquid PO 4 mg Q4H PRN Administration PAIN LEVEL 6-10 Imaging - Results Chest X-ray: Report Reviewed, Image Reviewed X-ray: Report Reviewed, Image Reviewed Ultrasound: Report Reviewed, Image Reviewed EKG: Image Reviewed Problem List - Problems (1) Cellulitis Code(s): L03.90 - CELLULITIS, UNSPECIFIED Qualifiers: Site of cellulitis: extremity Site of cellulitis of extremity: lower extremity Laterality: left Qualified Code(s): L03.116 - Cellulitis of left lower limb (2) Fracture of tibia, distal, left, closed Assessment/Plan: - Foot/ankle left- showed severe osteoporosis with fracture deformity of the distal tibia that most likely is chronic in nature - Splint placed in ED by resident for stability - Appreciate Ortho Consult - Tylenol prn Code(s): S82.302A - UNSP FRACTURE OF LOWER END OF LEFT TIBIA, INIT FOR CLOS FX (3) Chronic pain Assessment/Plan: - Will continue to monitor and treat with interventions accordingly Code(s): G89.29 - OTHER CHRONIC PAIN Qualifiers: Chronic pain type: chronic pain syndrome Qualified Code(s): G89.4 - Chronic pain syndrome (4) Neurogenic bladder Assessment/Plan: - secondary to spinal cord T4 transection - Condom Catheter - UA-pending - Monitor urine output Code(s): N31.9 - NEUROMUSCULAR DYSFUNCTION OF BLADDER, UNSPECIFIED (5) Paraplegia Assessment/Plan: - s/p Back Injury - Turn & Position Q2H - Noam lift - Fall precautions Code(s): G82.20 - PARAPLEGIA, UNSPECIFIED Assessment/Plan This is a 63 y/o man with a PMHx of Spinal Fx T2-T4 cord transection (Lumbar Fx - fall, 11/05/81), Neurogenic bladder, recurrent UTIs, Paroxysmal Afib (no AC). Admitted for Cellulitis of LLE, L- Distal Tibia Fx for further evaluation of their emergent condition. Plan: FEN PO fluids as tolerated Replete lytes as indicated Regular Diet DVT ppx SCD to Right leg only Heparin SQ Code Status: Full Code Dispo: Requires Inpatient Care Visit type - Emergency Visit Emergency Visit: Yes ED Registration Date: 05/28/18 Care time: The patient presented to the Emergency Department on the above date and was hospitalized for further evaluation of their emergent condition. - New Patient This patient is new to me today: Yes Date on this admission: 05/28/18 - Critical Care Critical Care patient: No Hospitalist Screening - Colonoscopy Questionnaire Colonoscopy Questionnaire: Colonoscopy Questionnaire - Patient: 50 - 75 years old and never had a screening colonoscopy: Unknown History of colon or rectal polyps, or CA: Unknown History of IBD, Crohn's disease or UC: Unknown History of abdominal radiation therapy as a child: Unknown - Relative: 1 with colon or rectal CA, or polyps at age 60 or younger: Unknown Colon or rectal CA diagnosed at age 45 or younger: Unknown Multiple relatives with colon or rectal CA: Unknown - Outcome: Screening Result: Negative Screen
[2018-05-28] MEDS: HEPARIN NA (PORCINE) 5,000 UNITS/ML 1ML VIAL SQ SCH (22:00)
[2018-05-29] MEDS ORDERED: ACETAMINOPHEN 1000 MG/100 ML VIAL (NON FORMULARY) IVPB PRN (01:30)
[2018-05-29] MEDS ORDERED: ACETAMINOPHEN 325 MG TABLET (FP) PO PRN (01:35)
[2018-05-29] MEDS: diazePAM 5 MG TABLET PO PRN (01:40)
[2018-05-29 07:13] LABS: BASO % 0.2 % (0-2.0); EOS % 0.5 % (0-4.5); HEMATOCRIT 42.3 % (35.4-49); LYMPH % 6.4 % (8-40); MCH 30.7 pg (25.7-33.7); MCHC 33.1 g/dl (32.0-35.9); MEAN CELL VOLUME 92.7 fl (80-96); MEAN PLT VOLUME 8.8 fl (7.5-11.1); MONO % 8.1 % (3.8-10.2); NEUT % 84.8 % (42.8-82.8); PLATELET COUNT 397 K/MM3 (134-434); RBC 4.57 M/mm3 (4.00-5.60); RDW 14.4 % (11.9-15.9); WHITE BLOOD COUNT 13.4 K/mm3 (4.0-10.0)
[2018-05-29] MEDS ORDERED: VANCOMYCIN 1 GRAM (PRE-DOCKED) 1,000 MG/250 ML BAG IVPB ONE (07:40)
[2018-05-29 07:53] LABS: ANION GAP 7 MMOL/L (8-16); BLOOD UREA NITROGEN 8 mg/dL (7-18); CALCIUM 8.7 mg/dL (8.5-10.1); CHLORIDE 101 mmol/L (98-107); CO2 27 mmol/L (21-32); CREATININE 0.5 mg/dL (0.55-1.3); GLUCOSE,RANDOM 94 mg/dL (74-106); POTASSIUM 4.3 mmol/L (3.5-5.1); SODIUM 136 mmol/L (136-145)
[2018-05-29] MEDS: VANCOMYCIN 1,000 MG in DEXTROSE 5%-WATER - 250 ML IVPB SCH (08:10)
[2018-05-29 08:15] LABS: URINE APPEARANCE CLOUDY; URINE BILIRUBIN NEGATIVE (<2.0 mg/dL); URINE COLOR AMBER; URINE GLUCOSE (UA) NEGATIVE (NEGATIVE); URINE KETONE NEGATIVE (NEGATIVE); URINE LEUK ESTERASE NEGATIVE (NEGATIVE); URINE NITRITE POSITIVE (NEGATIVE); URINE PROTEIN NEGATIVE (NEGATIVE)
[2018-05-29 08:40] LABS: EPI CELLS RARE /HPF (FEW); URINE BACTERIA RARE /hpf (NONE SEEN); URINE HYALINE CAST 2 /lpf
--- NOTE | 2018-05-29 09:16 | CON.ORTH ---
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 (T2 spinal fracture)) Gastrointestinal: Yes: Other (Hepatic hemangiomas) Renal/: Yes: Other (Bladder dysfunction) Infectious Disease: Yes: Other (multiple UTIs Pseudomonas) Musculoskeletal: Yes: Other (Chronic pain) - Past Surgical History Past Surgical History: Yes: Splenectomy - Alcohol/Substance Use Hx Alcohol Use: Yes (social) History of Substance Use: reports: Marijuana - Smoking History Smoking history: Never smoked Have you smoked in the past 12 months: No Aproximately how many cigarettes per day: 3 If you are a former smoker, when did you quit?: 1985 - Social History Usual Living Arrangement: With Significant Other 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 History of Recent Travel: No Home Medications - Allergies Allergies/Adverse Reactions: Allergies Allergy/AdvReac Type Severity Reaction Status Date / Time No Known Allergies Allergy Verified 05/28/18 16:02 - Home Medications Home Medications: Ambulatory Orders Diazepam [Valium] 10 mg PO TID PRN #30 tablet MDD 30mg 09/16/16 Family Disease History - Family Disease History Family Disease History: Heart Disease: Father Physical Exam for Ortho Vital Signs: Vital Signs Temperature 98.2 F 05/29/18 07:00 Pulse Rate 95 H 05/29/18 07:00 Respiratory Rate 16 05/29/18 07:00 Blood Pressure 109/63 05/29/18 07:00 O2 Sat by Pulse Oximetry (%) 100 05/29/18 07:00 Labs: CBC, BMP 05/29/18 06:30 05/29/18 06:30 - Lower Extremity Ankle: Yes: Left, Erythema, Swelling Imaging - Results X-ray: Report Reviewed, Image Reviewed Assessment/Plan 63 yo male w/ pmh of spinal fracture (w/ T2-T4 cord transection), neurogenic bladder (w/ recurrent UTI), paroxysmal afib (not on AC) who presents for evaluation of Left ankle deformity/discoloration. Patient reports that directly before presentation he looked at his leg and noted left ankle swelling and redness. He states that 2 days ago his aid got his foot stuck while transferring pt. a/p- left distal tibia fx- cellulitis No surgical intervention splint for immobilization- ok to remove to eval for pressure ulcers Abx as per medicine/ID elevation d/w Dr. Browning
[2018-05-29] MEDS ORDERED: VANCOMYCIN 1,000 MG in DEXTROSE 5%-WATER - 250 ML IVPB SCH (10:00)
[2018-05-29] MEDS: morphine SULFATE 10 MG/5 ML UNIT-DOSE CUP PO PRN ×2 (10:09→22:53)
[2018-05-29] MEDS: HEPARIN NA (PORCINE) 5,000 UNITS/ML 1ML VIAL SQ SCH ×2 (10:09→21:34)
--- NOTE | 2018-05-29 10:52 | CON.ID ---
Consult Consult Specialty:: infectious diseases Reason for Consultation:: cellulittis of the leg - History of Present Illness History of Present Illness: 63 y/o man with a past medical history of Spinal Fracture (w/ T2-T4 cord transection), Neurogenic Bladder (w/ recurrent UTI), Paroxysmal Afib (not on AC) . Who presents to the ED from home with left ankle deformity/discoloration. Patient reports that before coming to the ED, he looked at his leg and noticed left ankle swelling and redness. Patient reports he typically does not have sensation to his legs post spinal transection, however patient reports he is now having mild pain sensation to this area. 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 (T2 spinal fracture)) Gastrointestinal: Yes: Other (Hepatic hemangiomas) Renal/: Yes: Other (Bladder dysfunction) Infectious Disease: Yes: Other (multiple UTIs Pseudomonas) Musculoskeletal: Yes: Paraplegia, Other (Chronic pain) - Past Surgical History Past Surgical History: Yes: Splenectomy - Alcohol/Substance Use Hx Alcohol Use: Yes (social) History of Substance Use: reports: Marijuana - Smoking History Smoking history: Former smoker Have you smoked in the past 12 months: No Aproximately how many cigarettes per day: 3 If you are a former smoker, when did you quit?: 1985 - Social History Usual Living Arrangement: With Significant Other 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)) History of Recent Travel: No Home Medications - Allergies Allergies/Adverse Reactions: Allergies Allergy/AdvReac Type Severity Reaction Status Date / Time No Known Allergies Allergy Verified 05/28/18 16:02 - Home Medications Home Medications: Ambulatory Orders Diazepam [Valium] 10 mg PO TID PRN #30 tablet MDD 30mg 09/16/16 Family Disease History - Family Disease History Family Disease History: Heart Disease: Father Review of Systems - Review of Systems Constitutional: reports: No Symptoms Eyes: reports: No Symptoms HENT: reports: No Symptoms Neck: reports: No Symptoms Cardiovascular: reports: No Symptoms Respiratory: reports: No Symptoms Gastrointestinal: reports: No Symptoms Genitourinary: reports: No Symptoms Musculoskeletal: reports: Other Integumentary: reports: No Symptoms Neurological: reports: No Symptoms Endocrine: reports: No Symptoms Hematology/Lymphatic: reports: No Symptoms Psychiatric: reports: No Symptoms Physical Exam Vital Signs: Vital Signs Temperature 98.2 F 05/29/18 07:00 Pulse Rate 95 H 05/29/18 07:00 Respiratory Rate 16 05/29/18 07:00 Blood Pressure 109/63 05/29/18 07:00 O2 Sat by Pulse Oximetry (%) 100 05/29/18 07:00 Constitutional: Yes: Calm, Mild Distress HENT: Yes: Atraumatic Neck: Yes: Supple, Trachea Midline Cardiovascular: Yes: Regular Rate and Rhythm Respiratory: Yes: Regular Gastrointestinal: Yes: Normal Bowel Sounds, Soft Musculoskeletal: Yes: WNL Extremities: Yes: Other Integumentary: Yes: Erythema, Other (of left leg) Neurological: Yes: Alert, Oriented Psychiatric: Yes: Alert, Oriented Labs: CBC, BMP 05/29/18 06:30 05/29/18 06:30 Imaging - Results Chest X-ray: Report Reviewed, Image Reviewed X-ray: Report Reviewed, Image Reviewed Assessment/Plan Problem List - Problems (1) Acute UTI Code(s): N39.0 - URINARY TRACT INFECTION, SITE NOT SPECIFIED (2) Pulmonary nodule Code(s): R91.1 - SOLITARY PULMONARY NODULE (3) Chronic pain Code(s): G89.29 - OTHER CHRONIC PAIN Qualifiers: Chronic pain type: chronic pain syndrome Qualified Code(s): G89.4 - Chronic pain syndrome (4) Abdominal pain Code(s): R10.9 - UNSPECIFIED ABDOMINAL PAIN Qualifiers: Abdominal location: unspecified location Qualified Code(s): R10.9 - Unspecified abdominal pain plan is also for lung biopsy plan will start patient on zosyn await for all cx report monitor swelling of the leg rest as per the team
--- NOTE | 2018-05-29 10:53 | PN ---
Progress Note, Physician Chief Complaint: pt in no acute distress. denies any chest pain, sob, n/v/d. comfortable - Current Medication List Current Medications: Active Medications Acetaminophen (Tylenol -) 650 mg PO Q6H PRN PRN Reason: PAIN OR FEVER Diazepam (Valium -) 5 mg PO Q8H PRN PRN Reason: MUSCLE SPASMS Last Admin: 05/29/18 01:40 Dose: 5 mg Heparin Sodium (Porcine) (Heparin -) 5,000 unit SQ BID ZAIRA Last Admin: 05/29/18 10:09 Dose: 5,000 unit Vancomycin HCl 1,000 mg/ (Dextrose) 250 mls @ 166.667 mls/hr IVPB Q12H ZAIRA; Protocol Last Admin: 05/29/18 08:10 Dose: 166.667 mls/hr Vancomycin HCl 1,000 mg/ (Dextrose) 250 mls @ 200 mls/hr IVPB Q24H ZAIRA; Protocol Vancomycin HCl 1,000 mg/ (Dextrose) 250 mls @ 166.667 mls/hr IVPB ONCE ONE Stop: 05/29/18 21:59 Morphine Sulfate (Morphine 10 Mg/5 Ml Liquid) 4 mg PO Q4H PRN PRN Reason: PAIN LEVEL 6-10 Last Admin: 05/29/18 10:09 Dose: 4 mg - Objective Vital Signs: Vital Signs Temperature 98.2 F 05/29/18 07:00 Pulse Rate 95 H 05/29/18 07:00 Respiratory Rate 16 05/29/18 07:00 Blood Pressure 109/63 05/29/18 07:00 O2 Sat by Pulse Oximetry (%) 100 05/29/18 07:00 Constitutional: Yes: Well Nourished, No Distress Cardiovascular: Yes: WNL, Regular Rate and Rhythm. No: Murmur, Rub Respiratory: Yes: WNL, Regular, CTA Bilaterally. No: Rhonchi, SOB, Tachypnea, Wheezes Gastrointestinal: Yes: WNL, Normal Bowel Sounds, Soft. No: Distention, Tenderness Genitourinary: Yes: WNL Musculoskeletal: Yes: Joint Swelling (left ankle, splint in place) Integumentary: Yes: Erythema (left ankle) Neurological: Yes: Alert, Oriented, Pre-Existing Deficit (paraplegia) Psychiatric: Yes: WNL, Alert, Oriented Labs: CBC, BMP 05/29/18 06:30 05/29/18 06:30 Problem List - Problems (1) Cellulitis Assessment/Plan: +edema/moderate erythema/tenderness to LLE ankle antibx per ID vanco/zosyn day 1 monitor Code(s): L03.90 - CELLULITIS, UNSPECIFIED Qualifiers: Site of cellulitis: extremity Site of cellulitis of extremity: lower extremity Laterality: left Qualified Code(s): L03.116 - Cellulitis of left lower limb (2) Fracture of tibia, distal, left, closed Assessment/Plan: evaluated by ortho no surgical intervention splint in place Code(s): S82.302A - UNSP FRACTURE OF LOWER END OF LEFT TIBIA, INIT FOR CLOS FX Qualifiers: Encounter type: initial encounter (3) Leukocytosis Assessment/Plan: improving antibx per ID monitor Code(s): D72.829 - ELEVATED WHITE BLOOD CELL COUNT, UNSPECIFIED (4) Pulmonary nodule Assessment/Plan: recent chest CT- pulm lesions suspicious for metastatic disease has biopsy scheduled for Wed per PCP pulm/IR consulted Code(s): R91.1 - SOLITARY PULMONARY NODULE (5) Chronic pain Assessment/Plan: controlled continue morphine prn Code(s): G89.29 - OTHER CHRONIC PAIN Qualifiers: Chronic pain type: chronic pain syndrome Qualified Code(s): G89.4 - Chronic pain syndrome (6) Paraplegia Assessment/Plan: chronic reposition q2hrs Code(s): G82.20 - PARAPLEGIA, UNSPECIFIED (7) Anxiety Assessment/Plan: chronic continue valium Code(s): F41.9 - ANXIETY DISORDER, UNSPECIFIED
--- NOTE | 2018-05-29 12:11 | EKG ---
Test Reason : Blood Pressure : / mmHG Vent. Rate : 096 BPM Atrial Rate : 096 BPM P-R Int : 118 ms QRS Dur : 072 ms QT Int : 348 ms P-R-T Axes : 063 074 090 degrees QTc Int : 439 ms POOR DATA QUALITY, INTERPRETATION MAY BE ADVERSELY AFFECTED NORMAL SINUS RHYTHM NORMAL ECG WHEN COMPARED WITH ECG OF 30-APR-2018 13:53, NO SIGNIFICANT CHANGE WAS FOUND Confirmed by JUAN REDMOND MD ([id number]) on 05/29/2018 12:10:38 PM Referred By: Confirmed By:JUAN REDMOND MD
[2018-05-29] MEDS ORDERED: PIPERACILLIN/TAZOB 3.375 GM 3.375 GM/50 ML BAG IVPB ONE (12:40)
[2018-05-29] MEDS: PIPERACILLIN/TAZOB 3.375 GM 3.375 GM in DEXTROSE 5%-WATER - 50 ML IVPB SCH ×2 (13:03→18:34)
[2018-05-29 16:26] VITALS: BMI 20.2
--- NOTE | 2018-05-29 17:06 | PN ---
Progress Note (short form) - Note Progress Note: PULMONARY CONSULTATION DICTATED 05/29/18 IMP BILATERAL PULMONARY NODULES CELLULITIS PARAPLEGIA S/P SPINAL INJURY WITH L2-L4 CORD TRANSECTION PAF RECURRENT UTIS PLAN ABX PER ID CULTURES IR CONSULT FOR CT GUIDED BX LUNG NODULE DR LI Problem List - Problems (1) Cellulitis Code(s): L03.90 - CELLULITIS, UNSPECIFIED Qualifiers: Site of cellulitis: extremity Site of cellulitis of extremity: lower extremity Laterality: left Qualified Code(s): L03.116 - Cellulitis of left lower limb (2) Lung nodule Code(s): R91.1 - SOLITARY PULMONARY NODULE (3) Pulmonary nodule Code(s): R91.1 - SOLITARY PULMONARY NODULE (4) Neurogenic bladder Code(s): N31.9 - NEUROMUSCULAR DYSFUNCTION OF BLADDER, UNSPECIFIED (5) Paraplegia Code(s): G82.20 - PARAPLEGIA, UNSPECIFIED
[2018-05-29] MEDS ORDERED: DEXTROSE 5%-WATER - 50 ML IVPB ONE (17:43)
[2018-05-29] MEDS ORDERED: PIPERACILLIN/TAZOBACTAM 3.375 GM VIAL IVPB ONE (17:43)
[2018-05-29] MEDS ORDERED: SODIUM CHLORIDE 1,000 ML IV SCH (18:00)
[2018-05-29] MEDS ORDERED: PT OWN MED DRAWER 7, Y5N ONE (20:19)
[2018-05-29] MEDS ORDERED: VANCOMYCIN 1,000 MG in DEXTROSE 5%-WATER - 250 ML IVPB ONE (20:30)
--- NOTE | 2018-05-29 21:11 | CONSULT ---
Consult - text type - Consultation Consultation Note: Mr. Valenzuela is a 63 yo male w/ pmh of spinal fracture (w/ T2-T4 cord transection) , neurogenic bladder (w/ recurrent UTI), paroxysmal afib (not on AC) who presents for evaluation of Left ankle deformity/discoloration. Patient reports he typically does not have sensation to his legs post spinal transection however patient reports he is now having mild pain sensation to this area. Patient also reports headache and intermittent chest pain. The patient denies shortness of breath, and dizziness. Denies fever, chills, nausea, vomit, diarrhea and constipation. Denies dysuria, frequency, urgency and hematuria. 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) (Hypotension) - Surgical History Orthopedic Surgery: Yes (fracture right wrist s/p fusion) - Suicide/Smoking/Psychosocial Hx Smoking History: Never smoked Laboratory Results - last 24 hr 05/28/18 05/28/18 16:25 16:25 WBC 15.6 H RBC 4.70 Hgb 14.6 Hct 43.3 MCV 92.2 MCH 31.0 MCHC 33.6 RDW 14.1 Plt Count 432 D MPV 9.0 Absolute Neuts (auto) 13.7 H Total Counted 100 Neutrophils % 87.5 H Neutrophils % (Manual) 86.0 H Band Neutrophils % 1.0 Lymphocytes % 4.8 L D Lymphocytes % (Manual) 3.0 L D Monocytes % 7.2 Monocytes % (Manual) 9 Eosinophils % 0.5 Eosinophils % (Manual) 1.0 Basophils % 0.0 Nucleated RBC % 0 Platelet Estimate Slt increase Platelet Comment Giant platelets Sodium 134 L Potassium 4.1 Chloride 101 Carbon Dioxide 27 Anion Gap 6 L BUN 6 L Creatinine 0.6 Creat Clearance w eGFR > 60 Random Glucose 101 Calcium 8.8 Total Bilirubin 0.6 AST 18 ALT 18 Alkaline Phosphatase 125 H Total Protein 7.5 Albumin 3.0 L - Past Medical History [employer]: Yes: Other (paraplegia due to accidental fall (T2 spinal fracture)) Gastrointestinal: Yes: Other (Hepatic hemangiomas) Renal/: Yes: Other (Bladder dysfunction) Heme/Onc: Yes: Other (Neurogenic bladder w/ h/o UTI) Infectious Disease: Yes: Other (multiple UTIs Pseudomonas) Musculoskeletal: Yes: Paraplegia, Other (Chronic pain) - Past Surgical History Past Surgical History: Yes: Splenectomy Right Wrist s/p Fusion - Smoking History Smoking history: Former smoker - Alcohol/Substance Use Hx Alcohol Use: Yes (social) History of Substance Use: reports: Marijuana - Social History Usual Living Arrangement: Yes: Alone 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 ([facility] ([facility]hr)) - Allergies Allergies/Adverse Reactions: Allergies Allergy/AdvReac Type Severity Reaction Status Date / Time No Known Allergies Allergy Verified 05/28/18 16:02 - Home Medications Home Medications: Ambulatory Orders Diazepam [Valium] 10 mg PO TID PRN #30 tablet MDD 30mg 09/16/16 Family Disease History - Family Disease History Family Disease History: Heart Disease: Father Physical Examination Vital Signs: AFVSS Cor: RSR, No murmurs, No gallops Lungs: Clear to P&A Abd: Soft, Normal bowel sounds, No organomegaly Ext:paraplegic/wasting CBC, BMP 05/28/18 16:25 05/28/18 16:25 Current Medications Generic Name Dose Route Start Last Admin Trade Name Freq PRN Reason Stop Dose Admin Acetaminophen 650 mg 05/29/18 01:35 Tylenol - PO Q6H PRN PAIN OR FEVER Diazepam 5 mg 05/29/18 01:33 05/29/18 01:40 Valium - PO 5 mg Q8H PRN Administration MUSCLE SPASMS Heparin Sodium (Porcine) 5,000 unit 05/28/18 22:00 05/29/18 10:09 Heparin - SQ 5,000 unit BID ZAIRA Administration Vancomycin HCl 1,000 mg/ 250 mls @ 166.667 mls/hr 05/28/18 20:00 05/29/18 08: 10 Dextrose IVPB 166.667 mls/hr Q12H ZAIRA Administration Protocol Vancomycin HCl 1,000 mg/ 250 mls @ 200 mls/hr 05/29/18 10:00 Dextrose IVPB Q24H ZAIRA Protocol Vancomycin HCl 1,000 mg/ 250 mls @ 166.667 mls/hr 05/29/18 20:30 Dextrose IVPB 05/29/18 21:59 ONCE ONE Morphine Sulfate 4 mg 05/29/18 09:54 05/29/18 10:09 Morphine 10 Mg/5 Ml Liquid PO 4 mg Q4H PRN Administration PAIN LEVEL 6-10 Imaging - Results Chest X-ray: Report Reviewed, Image Reviewed X-ray: Report Reviewed, Image Reviewed Ultrasound: Report Reviewed, Image Reviewed EKG: Image Reviewed Assessment/Plan This is a 63 y/o man with a PMHx of Spinal Fx T2-T4 cord transection (Lumbar Fx - fall, 11/05/81), Neurogenic bladder, recurrent UTIs, Paroxysmal Afib (no AC). We have been consulted about bilateral pulmonary masses/sclerotic T4 focus check coags will discuss with pulmonary/IR about biopsy of pulmonary nodules will check bone scan
[2018-05-30] MEDS ORDERED: DEXTROSE 5%-WATER - 50 ML IVPB ONE ×3 (01:22→17:13)
[2018-05-30] MEDS ORDERED: PIPERACILLIN/TAZOBACTAM 3.375 GM VIAL IVPB ONE ×3 (01:22→17:13)
[2018-05-30] MEDS: PIPERACILLIN/TAZOB 3.375 GM 3.375 GM in DEXTROSE 5%-WATER - 50 ML IVPB SCH ×3 (01:26→17:14)
[2018-05-30] MEDS: morphine SULFATE 10 MG/5 ML UNIT-DOSE CUP PO PRN ×3 (06:24→16:24)
[2018-05-30 06:51] LABS: BASO % 0.1 % (0-2.0); EOS % 2.7 % (0-4.5); HEMATOCRIT 41.9 % (35.4-49); HEMOGLOBIN 13.6 GM/dL (11.7-16.9); LYMPH % 10.1 % (8-40); MCH 30.4 pg (25.7-33.7); MCHC 32.5 g/dl (32.0-35.9); MEAN CELL VOLUME 93.3 fl (80-96); MONO % 10.3 % (3.8-10.2); NEUT % 76.8 % (42.8-82.8); PLATELET COUNT 389 K/MM3 (134-434); RBC 4.49 M/mm3 (4.00-5.60); RDW 14.2 % (11.9-15.9); WHITE BLOOD COUNT 12.9 K/mm3 (4.0-10.0)
[2018-05-30 07:54] LABS: ANION GAP 12 MMOL/L (8-16); BLOOD UREA NITROGEN 12 mg/dL (7-18); CALCIUM 8.9 mg/dL (8.5-10.1); CHLORIDE 103 mmol/L (98-107); CO2 27 mmol/L (21-32); CREATININE 0.7 mg/dL (0.55-1.3); GLUCOSE,RANDOM 83 mg/dL (74-106); POTASSIUM 3.8 mmol/L (3.5-5.1); SODIUM 142 mmol/L (136-145)
[2018-05-30 08:13] LABS: ERYTHROCYTE SEDIMENTATION RATE 67 mm/hr (0-20)
--- NOTE | 2018-05-30 09:26 | PN ---
Progress Note, Physician History of Present Illness: says he is feeling better but still not very well abd pain/discomfort - Current Medication List Current Medications: Active Medications Acetaminophen (Tylenol -) 650 mg PO Q6H PRN PRN Reason: PAIN OR FEVER Diazepam (Valium -) 5 mg PO Q8H PRN PRN Reason: MUSCLE SPASMS Last Admin: 05/29/18 01:40 Dose: 5 mg Heparin Sodium (Porcine) (Heparin -) 5,000 unit SQ BID ZAIRA Last Admin: 05/29/18 21:34 Dose: 5,000 unit Piperacillin Sod/Tazobactam (Sod 3.375 gm/ Dextrose) 50 mls @ 100 mls/hr IVPB Q8H-IV ZAIRA; Protocol Last Admin: 05/30/18 01:26 Dose: 100 mls/hr Sodium Chloride (Normal Saline -) 1,000 mls @ 50 mls/hr IV ASDIR ZAIRA Stop: 05/30/18 17:54 Last Admin: 05/29/18 18:34 Dose: 50 mls/hr Morphine Sulfate (Morphine 10 Mg/5 Ml Liquid) 4 mg PO Q4H PRN PRN Reason: PAIN LEVEL 6-10 Last Admin: 05/30/18 06:24 Dose: 4 mg - Objective Vital Signs: Vital Signs Temperature 97.6 F 05/30/18 05:17 Pulse Rate 71 05/30/18 05:17 Respiratory Rate 18 05/30/18 05:17 Blood Pressure 125/58 L 05/30/18 05:17 O2 Sat by Pulse Oximetry (%) 97 05/29/18 16:30 Constitutional: Yes: Calm, Mild Distress Cardiovascular: Yes: Regular Rate and Rhythm Respiratory: Yes: Regular, CTA Bilaterally Gastrointestinal: Yes: Normal Bowel Sounds, Soft Musculoskeletal: Yes: WNL, Other Extremities: Yes: Other Integumentary: Yes: Erythema Wound/Incision: Yes: Dressing Dry and Intact Neurological: Yes: Alert, Oriented Psychiatric: Yes: Alert, Oriented Labs: CBC, BMP 05/30/18 06:30 05/30/18 06:30 Assessment/Plan Problem List - Problems (1) Acute UTI Code(s): N39.0 - URINARY TRACT INFECTION, SITE NOT SPECIFIED (2) Pulmonary nodule Code(s): R91.1 - SOLITARY PULMONARY NODULE (3) Chronic pain Code(s): G89.29 - OTHER CHRONIC PAIN Qualifiers: Chronic pain type: chronic pain syndrome Qualified Code(s): G89.4 - Chronic pain syndrome (4) Abdominal pain Code(s): R10.9 - UNSPECIFIED ABDOMINAL PAIN Qualifiers: Abdominal location: unspecified location Qualified Code(s): R10.9 - Unspecified abdominal pain plan is also for lung biopsy plan will start patient on zosyn await for all cx report monitor swelling of the leg rest as per the team
[2018-05-30] MEDS ORDERED: PT OWN MED DRAWER 7, Y5N ONE (09:40)
[2018-05-30] MEDS: HEPARIN NA (PORCINE) 5,000 UNITS/ML 1ML VIAL SQ SCH ×2 (09:44→11:02)
--- NOTE | 2018-05-30 12:20 | PN ---
Progress Note, Physician History of Present Illness: pulmonary alert,no distress,-sob,-cough - Current Medication List Current Medications: Active Medications Acetaminophen (Tylenol -) 650 mg PO Q6H PRN PRN Reason: PAIN OR FEVER Diazepam (Valium -) 5 mg PO Q8H PRN PRN Reason: MUSCLE SPASMS Last Admin: 05/29/18 01:40 Dose: 5 mg Heparin Sodium (Porcine) (Heparin -) 5,000 unit SQ BID ZAIRA Last Admin: 05/30/18 09:44 Dose: 5,000 unit Piperacillin Sod/Tazobactam (Sod 3.375 gm/ Dextrose) 50 mls @ 100 mls/hr IVPB Q8H-IV ZAIRA; Protocol Last Admin: 05/30/18 09:43 Dose: 100 mls/hr Sodium Chloride (Normal Saline -) 1,000 mls @ 50 mls/hr IV ASDIR ZAIRA Stop: 05/30/18 17:54 Last Admin: 05/29/18 18:34 Dose: 50 mls/hr Morphine Sulfate (Morphine 10 Mg/5 Ml Liquid) 4 mg PO Q4H PRN PRN Reason: PAIN LEVEL 6-10 Last Admin: 05/30/18 11:38 Dose: 4 mg - Objective Vital Signs: Vital Signs Temperature 98.4 F 05/30/18 08:15 Pulse Rate 60 05/30/18 08:15 Respiratory Rate 18 05/30/18 08:15 Blood Pressure 107/50 L 05/30/18 08:15 O2 Sat by Pulse Oximetry (%) 97 05/29/18 16:30 Constitutional: Yes: Well Nourished, Calm Eyes: Yes: WNL HENT: Yes: WNL Neck: Yes: WNL Cardiovascular: Yes: Regular Rate and Rhythm, S1, S2 Respiratory: Yes: CTA Bilaterally Gastrointestinal: Yes: Normal Bowel Sounds, Soft Extremities: Yes: Erythema (lle) Labs: CBC, BMP 05/30/18 06:30 05/30/18 06:30 Problem List - Problems (1) Cellulitis Code(s): L03.90 - CELLULITIS, UNSPECIFIED Qualifiers: Site of cellulitis: extremity Site of cellulitis of extremity: lower extremity Laterality: left Qualified Code(s): L03.116 - Cellulitis of left lower limb (2) Lung nodule Code(s): R91.1 - SOLITARY PULMONARY NODULE (3) Pulmonary nodule Code(s): R91.1 - SOLITARY PULMONARY NODULE (4) Neurogenic bladder Code(s): N31.9 - NEUROMUSCULAR DYSFUNCTION OF BLADDER, UNSPECIFIED (5) Paraplegia Code(s): G82.20 - PARAPLEGIA, UNSPECIFIED Assessment/Plan MP BILATERAL PULMONARY NODULES CELLULITIS PARAPLEGIA S/P SPINAL INJURY WITH L2-L4 CORD TRANSECTION PAF RECURRENT UTIS PLAN ABX PER ID IR CONSULT FOR CT GUIDED BX LUNG NODULE DR LI Problem List - Problems (1) Cellulitis Code(s): L03.90 - CELLULITIS, UNSPECIFIED Qualifiers: Site of cellulitis: extremity Site of cellulitis of extremity: lower extremity Laterality: left Qualified Code(s): L03.116 - Cellulitis of left lower limb (2) Lung nodule Code(s): R91.1 - SOLITARY PULMONARY NODULE (3) Pulmonary nodule Code(s): R91.1 - SOLITARY PULMONARY NODULE (4) Neurogenic bladder Code(s): N31.9 - NEUROMUSCULAR DYSFUNCTION OF BLADDER, UNSPECIFIED (5) Paraplegia Code(s): G82.20 - PARAPLEGIA, UNSPECIFIED
--- NOTE | 2018-05-30 13:09 | PN ---
Progress Note, Physician Chief Complaint: Left ankle cellulitis History of Present Illness: Mr. Valenzuela is a 63 yo male w/ pmh of spinal fracture (w/ T2-T4 cord transection) , neurogenic bladder (w/ recurrent UTI), paroxysmal afib (not on AC) who presents for evaluation of Left ankle deformity/discoloration. - Current Medication List Current Medications: Active Medications Acetaminophen (Tylenol -) 650 mg PO Q6H PRN PRN Reason: PAIN OR FEVER Diazepam (Valium -) 5 mg PO Q8H PRN PRN Reason: MUSCLE SPASMS Last Admin: 05/29/18 01:40 Dose: 5 mg Heparin Sodium (Porcine) (Heparin -) 5,000 unit SQ BID ZAIRA Last Admin: 05/30/18 09:44 Dose: 5,000 unit Piperacillin Sod/Tazobactam (Sod 3.375 gm/ Dextrose) 50 mls @ 100 mls/hr IVPB Q8H-IV ZAIRA; Protocol Last Admin: 05/30/18 09:43 Dose: 100 mls/hr Sodium Chloride (Normal Saline -) 1,000 mls @ 50 mls/hr IV ASDIR ZAIRA Stop: 05/30/18 17:54 Last Admin: 05/29/18 18:34 Dose: 50 mls/hr Morphine Sulfate (Morphine 10 Mg/5 Ml Liquid) 4 mg PO Q4H PRN PRN Reason: PAIN LEVEL 6-10 Last Admin: 05/30/18 11:38 Dose: 4 mg - Objective Vital Signs: Vital Signs Temperature 98.4 F 05/30/18 08:15 Pulse Rate 60 05/30/18 08:15 Respiratory Rate 18 05/30/18 08:15 Blood Pressure 107/50 L 05/30/18 08:15 O2 Sat by Pulse Oximetry (%) 97 05/29/18 16:30 Constitutional: Yes: Well Nourished, No Distress, Calm Cardiovascular: Yes: Regular Rate and Rhythm. No: Gallop, Murmur Respiratory: Yes: Regular, CTA Bilaterally. No: Accessory Muscle Use, SOB, Tachypnea, Wheezes Gastrointestinal: Yes: WNL, Normal Bowel Sounds, Soft. No: Distention, Tenderness Renal/: Yes: Incontinence EXT; Left ankle Cellulitis Integumentary: Yes: Pressure Ulcer (stage 2 decubitus on right abdomen) Neurological: Yes: Alert, Oriented, Pre-Existing Deficit (paraplegia) Psychiatric: Yes: WNL, Alert, Oriented Labs: CBC, BMP 05/30/18 06:30 05/30/18 06:30 Problem List - Problems (1) Cellulitis Assessment/Plan: On Zosyn as ID F/U cultures Code(s): L03.90 - CELLULITIS, UNSPECIFIED Qualifiers: Site of cellulitis: extremity Site of cellulitis of extremity: lower extremity Laterality: left Qualified Code(s): L03.116 - Cellulitis of left lower limb (2) Decubital ulcer Assessment/Plan: wound care Code(s): L89.90 - PRESSURE ULCER OF UNSPECIFIED SITE, UNSPECIFIED STAGE (3) Pulmonary nodule Assessment/Plan: Schedule for IR guided Biopsy Code(s): R91.1 - SOLITARY PULMONARY NODULE (4) Neurogenic bladder Assessment/Plan: S/O Supr pubic cathter grew Pseudomonas cont zosyn Code(s): N31.9 - NEUROMUSCULAR DYSFUNCTION OF BLADDER, UNSPECIFIED (5) Stenosis of aorta Assessment/Plan: Chronic Code(s): Q25.3 - SUPRAVALVULAR AORTIC STENOSIS (6) Paraplegia Assessment/Plan: Traumatic chronic bed bound Code(s): G82.20 - PARAPLEGIA, UNSPECIFIED
[2018-05-31] MEDS: diazePAM 5 MG TABLET PO PRN (00:02)
[2018-05-31] MEDS: morphine SULFATE 10 MG/5 ML UNIT-DOSE CUP PO PRN ×5 (00:07→22:50)
[2018-05-31] MEDS ORDERED: DEXTROSE 5%-WATER - 50 ML IVPB ONE ×4 (01:58→20:24)
[2018-05-31] MEDS ORDERED: PIPERACILLIN/TAZOBACTAM 3.375 GM VIAL IVPB ONE ×4 (01:58→20:23)
[2018-05-31] MEDS: PIPERACILLIN/TAZOB 3.375 GM 3.375 GM in DEXTROSE 5%-WATER - 50 ML IVPB SCH ×3 (02:36→17:11)
[2018-05-31 08:02] LABS: BASO % 1.4 % (0-2.0); EOS % 4.2 % (0-4.5); HEMATOCRIT 41.3 % (35.4-49); HEMOGLOBIN 13.3 GM/dL (11.7-16.9); LYMPH % 16.9 % (8-40); MCH 30.5 pg (25.7-33.7); MCHC 32.2 g/dl (32.0-35.9); MEAN CELL VOLUME 94.7 fl (80-96); MEAN PLT VOLUME 9.6 fl (7.5-11.1); MONO % 8.5 % (3.8-10.2); PLATELET COUNT 342 K/MM3 (134-434); RBC 4.36 M/mm3 (4.00-5.60); RDW 14.6 % (11.9-15.9); WHITE BLOOD COUNT 11.3 K/mm3 (4.0-10.0)
[2018-05-31 08:16] LABS: PROTHROMBIN TIME (PATIENT) 11.3 SEC (9.7-13.0)
[2018-05-31 08:18] LABS: ACTIVATED PTT 30.2 SECONDS (25.2-36.5)
[2018-05-31 09:03] LABS: ALBUMIN 2.8 g/dl (3.4-5.0); ALK PHOS 91 U/L (45-117); ANION GAP 10 MMOL/L (8-16); BILIRUBIN,TOTAL 0.4 mg/dL (0.2-1); BLOOD UREA NITROGEN 12 mg/dL (7-18); CALCIUM 8.9 mg/dL (8.5-10.1); CHLORIDE 104 mmol/L (98-107); CO2 27 mmol/L (21-32); CREATININE 0.7 mg/dL (0.55-1.3); GLUCOSE,RANDOM 74 mg/dL (74-106); POTASSIUM 4.3 mmol/L (3.5-5.1); SGOT/AST 14 U/L (15-37); SGPT/ALT 16 U/L (13-61); SODIUM 141 mmol/L (136-145); TOT PROT 6.8 g/dl (6.4-8.2)
[2018-05-31] MEDS: HEPARIN NA (PORCINE) 5,000 UNITS/ML 1ML VIAL SQ SCH ×2 (09:53→21:21)
--- NOTE | 2018-05-31 13:46 | PN ---
Progress Note, Physician History of Present Illness: pulmonary alert,no distress,-cp,-sob,-cough - Current Medication List Current Medications: Active Medications Acetaminophen (Tylenol -) 650 mg PO Q6H PRN PRN Reason: PAIN OR FEVER Diazepam (Valium -) 5 mg PO Q8H PRN PRN Reason: MUSCLE SPASMS Last Admin: 05/31/18 00:02 Dose: 5 mg Heparin Sodium (Porcine) (Heparin -) 5,000 unit SQ BID ZAIRA Last Admin: 05/31/18 09:53 Dose: 5,000 unit Piperacillin Sod/Tazobactam (Sod 3.375 gm/ Dextrose) 50 mls @ 100 mls/hr IVPB Q8H-IV ZAIRA; Protocol Last Admin: 05/31/18 09:53 Dose: 100 mls/hr Morphine Sulfate (Morphine 10 Mg/5 Ml Liquid) 4 mg PO Q4H PRN PRN Reason: PAIN LEVEL 6-10 Last Admin: 05/31/18 12:47 Dose: 4 mg - Objective Vital Signs: Vital Signs Temperature 98.2 F 05/31/18 09:45 Pulse Rate 93 H 05/31/18 09:45 Respiratory Rate 18 05/31/18 09:45 Blood Pressure 114/61 05/31/18 09:45 O2 Sat by Pulse Oximetry (%) 97 05/29/18 16:30 Constitutional: Yes: Well Nourished, Calm Eyes: Yes: WNL HENT: Yes: WNL Neck: Yes: WNL Cardiovascular: Yes: Regular Rate and Rhythm, S1, S2 Respiratory: Yes: CTA Bilaterally Gastrointestinal: Yes: Normal Bowel Sounds, Soft Extremities: Yes: Erythema Edema: Yes Labs: CBC, BMP 05/31/18 06:30 05/31/18 06:30 INR, PTT INR 1.00 (0.83-1.09) 05/31/18 06:30 Fibrinogen > 500.0 mg/dL (238-498) H 05/31/18 06:30 Problem List - Problems (1) Cellulitis Code(s): L03.90 - CELLULITIS, UNSPECIFIED Qualifiers: Site of cellulitis: extremity Site of cellulitis of extremity: lower extremity Laterality: left Qualified Code(s): L03.116 - Cellulitis of left lower limb (2) Lung nodule Code(s): R91.1 - SOLITARY PULMONARY NODULE (3) Pulmonary nodule Code(s): R91.1 - SOLITARY PULMONARY NODULE (4) Neurogenic bladder Code(s): N31.9 - NEUROMUSCULAR DYSFUNCTION OF BLADDER, UNSPECIFIED (5) Paraplegia Code(s): G82.20 - PARAPLEGIA, UNSPECIFIED Assessment/Plan MP BILATERAL PULMONARY NODULES CELLULITIS PARAPLEGIA S/P SPINAL INJURY WITH L2-L4 CORD TRANSECTION PAF RECURRENT UTIS PLAN ABX PER ID IR CONSULT FOR CT GUIDED BX LUNG NODULE DR LI Problem List - Problems (1) Cellulitis Code(s): L03.90 - CELLULITIS, UNSPECIFIED Qualifiers: Site of cellulitis: extremity Site of cellulitis of extremity: lower extremity Laterality: left Qualified Code(s): L03.116 - Cellulitis of left lower limb (2) Lung nodule Code(s): R91.1 - SOLITARY PULMONARY NODULE (3) Pulmonary nodule Code(s): R91.1 - SOLITARY PULMONARY NODULE (4) Neurogenic bladder Code(s): N31.9 - NEUROMUSCULAR DYSFUNCTION OF BLADDER, UNSPECIFIED (5) Paraplegia Code(s): G82.20 - PARAPLEGIA, UNSPECIFIED
--- NOTE | 2018-05-31 14:17 | PN ---
Progress Note, Physician Chief Complaint: Left ankle cellulitis History of Present Illness: Mr. Valenzuela is a 63 yo male w/ pmh of spinal fracture (w/ T2-T4 cord transection) , neurogenic bladder (w/ recurrent UTI), paroxysmal afib (not on AC) who presents for evaluation of Left ankle deformity/discoloration. - Current Medication List Current Medications: Active Medications Acetaminophen (Tylenol -) 650 mg PO Q6H PRN PRN Reason: PAIN OR FEVER Diazepam (Valium -) 5 mg PO Q8H PRN PRN Reason: MUSCLE SPASMS Last Admin: 05/31/18 00:02 Dose: 5 mg Heparin Sodium (Porcine) (Heparin -) 5,000 unit SQ BID ZAIRA Last Admin: 05/31/18 09:53 Dose: 5,000 unit Piperacillin Sod/Tazobactam (Sod 3.375 gm/ Dextrose) 50 mls @ 100 mls/hr IVPB Q8H-IV ZAIRA; Protocol Last Admin: 05/31/18 09:53 Dose: 100 mls/hr Morphine Sulfate (Morphine 10 Mg/5 Ml Liquid) 4 mg PO Q4H PRN PRN Reason: PAIN LEVEL 6-10 Last Admin: 05/31/18 12:47 Dose: 4 mg - Objective Vital Signs: Vital Signs Temperature 98.2 F 05/31/18 09:45 Pulse Rate 93 H 05/31/18 09:45 Respiratory Rate 18 05/31/18 09:45 Blood Pressure 114/61 05/31/18 09:45 O2 Sat by Pulse Oximetry (%) 97 05/29/18 16:30 Constitutional: Yes: Well Nourished, No Distress, Calm Cardiovascular: Yes: Regular Rate and Rhythm. No: Gallop, Murmur Respiratory: Yes: Regular, CTA Bilaterally. No: Accessory Muscle Use, SOB, Tachypnea, Wheezes Gastrointestinal: Yes: WNL, Normal Bowel Sounds, Soft. No: Distention, Tenderness Renal/: Yes: Incontinence EXT; Left ankle Cellulitis Integumentary: Yes: Pressure Ulcer (stage 2 decubitus on right abdomen) Neurological: Yes: Alert, Oriented, Pre-Existing Deficit (paraplegia) Psychiatric: Yes: WNL, Alert, Oriented Labs: CBC, BMP 05/31/18 06:30 05/31/18 06:30 INR, PTT INR 1.00 (0.83-1.09) 05/31/18 06:30 Fibrinogen > 500.0 mg/dL (238-498) H 05/31/18 06:30 Microbiology 05/28/18 07:50 Urine - Urostomy Bag Urine Culture - Preliminary Pseudomonas Species Non Lactose Fermenting Gnb 05/28/18 16:25 Blood - Peripheral Venous Blood Culture - Preliminary NO GROWTH OBTAINED AFTER 48 HOURS, INCUBATION TO CONTINUE FOR 3 DAYS. 05/28/18 16:25 Blood - Peripheral Venous Blood Culture - Preliminary NO GROWTH OBTAINED AFTER 48 HOURS, INCUBATION TO CONTINUE FOR 3 DAYS. Problem List - Problems (1) Cellulitis Assessment/Plan: On Zosyn as ID F/U cultures Code(s): L03.90 - CELLULITIS, UNSPECIFIED Qualifiers: Site of cellulitis: extremity Site of cellulitis of extremity: lower extremity Laterality: left Qualified Code(s): L03.116 - Cellulitis of left lower limb (2) Decubital ulcer Assessment/Plan: wound care Code(s): L89.90 - PRESSURE ULCER OF UNSPECIFIED SITE, UNSPECIFIED STAGE (3) Pulmonary nodule Assessment/Plan: Schedule for IR guided Biopsy Code(s): R91.1 - SOLITARY PULMONARY NODULE (4) Neurogenic bladder Assessment/Plan: S/O Supr pubic cathter grew Pseudomonas cont zosyn Code(s): N31.9 - NEUROMUSCULAR DYSFUNCTION OF BLADDER, UNSPECIFIED (5) Stenosis of aorta Assessment/Plan: Chronic Code(s): Q25.3 - SUPRAVALVULAR AORTIC STENOSIS (6) Paraplegia Assessment/Plan: Traumatic chronic bed bound Code(s): G82.20 - PARAPLEGIA, UNSPECIFIED
[2018-06-01] MEDS: PIPERACILLIN/TAZOB 3.375 GM 3.375 GM in DEXTROSE 5%-WATER - 50 ML IVPB SCH ×3 (01:38→17:50)
[2018-06-01] MEDS: diazePAM 5 MG TABLET PO PRN (07:38)
[2018-06-01 08:14] LABS: BASO % 0.5 % (0-2.0); HEMATOCRIT 39.8 % (35.4-49); HEMOGLOBIN 13.3 GM/dL (11.7-16.9); MCHC 33.3 g/dl (32.0-35.9); MEAN CELL VOLUME 92.8 fl (80-96); MEAN PLT VOLUME 9.4 fl (7.5-11.1); MONO % 10.7 % (3.8-10.2); NEUT % 69.8 % (42.8-82.8); PLATELET COUNT 378 K/MM3 (134-434); RBC 4.29 M/mm3 (4.00-5.60); RDW 14.6 % (11.9-15.9); WHITE BLOOD COUNT 10.4 K/mm3 (4.0-10.0)
[2018-06-01 09:12] LABS: ANION GAP 7 MMOL/L (8-16); BLOOD UREA NITROGEN 10 mg/dL (7-18); CALCIUM 8.7 mg/dL (8.5-10.1); CHLORIDE 104 mmol/L (98-107); CO2 29 mmol/L (21-32); CREATININE 0.8 mg/dL (0.55-1.3); GLUCOSE,RANDOM 72 mg/dL (74-106); POTASSIUM 3.8 mmol/L (3.5-5.1); SODIUM 139 mmol/L (136-145)
--- NOTE | 2018-06-01 10:23 | PN ---
Progress Note (short form) - Note Progress Note: PULMONARY Denies shortness of breath, cough. No fevers or chills. Vital Signs Period Temp Pulse Resp BP Sys/Roche Pulse Ox Last 24 Hr 97.3 F-98.7 F 58-64 18-20 130-186/62-77 95 Gen: NAD at rest Heart: RRR Lung: decreased breath sounds at the bases Abd: soft, nontender Ext: no edema CBC, BMP 06/01/18 07:30 06/01/18 07:30 Active Medications Acetaminophen (Tylenol -) 650 mg PO Q6H PRN PRN Reason: PAIN OR FEVER Diazepam (Valium -) 5 mg PO Q8H PRN PRN Reason: MUSCLE SPASMS Last Admin: 06/01/18 07:38 Dose: 5 mg Heparin Sodium (Porcine) (Heparin -) 5,000 unit SQ BID ZAIRA Last Admin: 05/31/18 21:21 Dose: 5,000 unit Piperacillin Sod/Tazobactam (Sod 3.375 gm/ Dextrose) 50 mls @ 100 mls/hr IVPB Q8H-IV ZAIRA; Protocol Last Admin: 06/01/18 01:38 Dose: 100 mls/hr Morphine Sulfate (Morphine 10 Mg/5 Ml Liquid) 4 mg PO Q4H PRN PRN Reason: PAIN LEVEL 6-10 Last Admin: 05/31/18 22:50 Dose: 4 mg A/P Lung Nodules Cellulitis Paroxysmal Atrial Fibrillation Paraplegia - continue antibiotics per ID - for CT guided needle biopsy - DVT prophylaxis
[2018-06-01] MEDS ORDERED: PIPERACILLIN/TAZOBACTAM 3.375 GM VIAL IVPB ONE ×3 (10:36→23:02)
[2018-06-01] MEDS ORDERED: DEXTROSE 5%-WATER - 50 ML IVPB ONE ×3 (10:36→23:02)
[2018-06-01] MEDS: HEPARIN NA (PORCINE) 5,000 UNITS/ML 1ML VIAL SQ SCH (10:42)
[2018-06-01] MEDS: morphine SULFATE 10 MG/5 ML UNIT-DOSE CUP PO PRN ×2 (11:01→15:19)
--- NOTE | 2018-06-01 11:07 | PN ---
Progress Note (short form) - Note Progress Note: Ortho Pt seen and examined s/p left distal tibia fx- improving splint intact, erythema resolving a/p continue with splint Pt is paraplegic so will not be ambulating abx as per ID for cellulitis will follow d/w Dr. Daniels
--- NOTE | 2018-06-01 13:15 | PN ---
Progress Note, Physician Chief Complaint: Mr Valenzuela complains of some abdominal pain. No cp or sob. - Current Medication List Current Medications: Active Medications Acetaminophen (Tylenol -) 650 mg PO Q6H PRN PRN Reason: PAIN OR FEVER Diazepam (Valium -) 5 mg PO Q8H PRN PRN Reason: MUSCLE SPASMS Last Admin: 06/01/18 07:38 Dose: 5 mg Heparin Sodium (Porcine) (Heparin -) 5,000 unit SQ BID ZAIRA Last Admin: 06/01/18 10:42 Dose: 5,000 unit Piperacillin Sod/Tazobactam (Sod 3.375 gm/ Dextrose) 50 mls @ 100 mls/hr IVPB Q8H-IV ZAIRA; Protocol Last Admin: 06/01/18 10:41 Dose: 100 mls/hr Morphine Sulfate (Morphine 10 Mg/5 Ml Liquid) 4 mg PO Q4H PRN PRN Reason: PAIN LEVEL 6-10 Last Admin: 06/01/18 11:01 Dose: 4 mg - Objective Vital Signs: Vital Signs Temperature 36.8 C 06/01/18 10:00 Pulse Rate 68 06/01/18 10:00 Respiratory Rate 18 06/01/18 10:00 Blood Pressure 165/86 06/01/18 10:00 O2 Sat by Pulse Oximetry (%) 95 05/31/18 21:00 Constitutional: Yes: Well Nourished, No Distress, Calm Cardiovascular: Yes: Regular Rate and Rhythm. No: Gallop, Murmur, Rub Respiratory: Yes: Regular, CTA Bilaterally. No: Rales, Rhonchi, Wheezes Gastrointestinal: Yes: Normal Bowel Sounds, Soft, Tenderness (slight, LLQ). No : Distention Extremities: Yes: WNL Edema: No Labs: CBC, BMP 06/01/18 07:30 06/01/18 07:30 INR, PTT INR 1.00 (0.83-1.09) 05/31/18 06:30 Fibrinogen > 500.0 mg/dL (238-498) H 05/31/18 06:30 Problem List - Problems (1) Acute UTI Assessment/Plan: -growing pseudomonas and gram negative rods -ID following -continue zosyn Code(s): N39.0 - URINARY TRACT INFECTION, SITE NOT SPECIFIED (2) Pulmonary nodule Assessment/Plan: -plan for CT guided biopsy Code(s): R91.1 - SOLITARY PULMONARY NODULE (3) Chronic pain Assessment/Plan: -continue home morphine Code(s): G89.29 - OTHER CHRONIC PAIN Qualifiers: Chronic pain type: chronic pain syndrome Qualified Code(s): G89.4 - Chronic pain syndrome (4) Abdominal pain Assessment/Plan: -will obtain AXR -chronic Code(s): R10.9 - UNSPECIFIED ABDOMINAL PAIN Qualifiers: Abdominal location: unspecified location Qualified Code(s): R10.9 - Unspecified abdominal pain
--- NOTE | 2018-06-01 13:43 | PN ---
Progress Note, Physician History of Present Illness: comfortable mild discomfort in belly leg looks better - Current Medication List Current Medications: Active Medications Acetaminophen (Tylenol -) 650 mg PO Q6H PRN PRN Reason: PAIN OR FEVER Diazepam (Valium -) 5 mg PO Q8H PRN PRN Reason: MUSCLE SPASMS Last Admin: 06/01/18 07:38 Dose: 5 mg Heparin Sodium (Porcine) (Heparin -) 5,000 unit SQ BID ZAIRA Last Admin: 06/01/18 10:42 Dose: 5,000 unit Piperacillin Sod/Tazobactam (Sod 3.375 gm/ Dextrose) 50 mls @ 100 mls/hr IVPB Q8H-IV ZAIRA; Protocol Last Admin: 06/01/18 10:41 Dose: 100 mls/hr Morphine Sulfate (Morphine 10 Mg/5 Ml Liquid) 4 mg PO Q4H PRN PRN Reason: PAIN LEVEL 6-10 Last Admin: 06/01/18 11:01 Dose: 4 mg - Objective Vital Signs: Vital Signs Temperature 98.2 F 06/01/18 10:00 Pulse Rate 68 06/01/18 10:00 Respiratory Rate 18 06/01/18 10:00 Blood Pressure 165/86 06/01/18 10:00 O2 Sat by Pulse Oximetry (%) 95 05/31/18 21:00 Constitutional: Yes: No Distress, Calm Cardiovascular: Yes: Regular Rate and Rhythm Respiratory: Yes: Regular, CTA Bilaterally Gastrointestinal: Yes: Normal Bowel Sounds, Soft Musculoskeletal: Yes: WNL Extremities: Yes: Other Integumentary: Yes: Erythema (improving) Neurological: Yes: Alert, Oriented Psychiatric: Yes: Alert, Oriented Labs: CBC, BMP 06/01/18 07:30 06/01/18 07:30 INR, PTT INR 1.00 (0.83-1.09) 05/31/18 06:30 Fibrinogen > 500.0 mg/dL (238-498) H 05/31/18 06:30 Assessment/Plan Problem List - Problems (1) Acute UTI Code(s): N39.0 - URINARY TRACT INFECTION, SITE NOT SPECIFIED (2) Pulmonary nodule Code(s): R91.1 - SOLITARY PULMONARY NODULE (3) Chronic pain Code(s): G89.29 - OTHER CHRONIC PAIN Qualifiers: Chronic pain type: chronic pain syndrome Qualified Code(s): G89.4 - Chronic pain syndrome (4) Abdominal pain Code(s): R10.9 - UNSPECIFIED ABDOMINAL PAIN Qualifiers: Abdominal location: unspecified location Qualified Code(s): R10.9 - Unspecified abdominal pain plan is also for lung biopsy plan continue zosyn await for all cx report monitor swelling of the leg rest as per the team pseudomonas other organism awaited
--- NOTE | 2018-06-01 13:46 | PN ---
Progress Note, Physician History of Present Illness: no specific complaints no new issues - Current Medication List Current Medications: Active Medications Acetaminophen (Tylenol -) 650 mg PO Q6H PRN PRN Reason: PAIN OR FEVER Diazepam (Valium -) 5 mg PO Q8H PRN PRN Reason: MUSCLE SPASMS Last Admin: 06/01/18 07:38 Dose: 5 mg Heparin Sodium (Porcine) (Heparin -) 5,000 unit SQ BID ZAIRA Last Admin: 06/01/18 10:42 Dose: 5,000 unit Piperacillin Sod/Tazobactam (Sod 3.375 gm/ Dextrose) 50 mls @ 100 mls/hr IVPB Q8H-IV ZAIRA; Protocol Last Admin: 06/01/18 10:41 Dose: 100 mls/hr Morphine Sulfate (Morphine 10 Mg/5 Ml Liquid) 4 mg PO Q4H PRN PRN Reason: PAIN LEVEL 6-10 Last Admin: 06/01/18 11:01 Dose: 4 mg - Objective Vital Signs: Vital Signs Temperature 98.2 F 06/01/18 10:00 Pulse Rate 68 06/01/18 10:00 Respiratory Rate 18 06/01/18 10:00 Blood Pressure 165/86 06/01/18 10:00 O2 Sat by Pulse Oximetry (%) 95 05/31/18 21:00 Constitutional: Yes: No Distress, Calm Cardiovascular: Yes: Regular Rate and Rhythm Respiratory: Yes: Regular, CTA Bilaterally Gastrointestinal: Yes: Normal Bowel Sounds, Soft Musculoskeletal: Yes: WNL Extremities: Yes: Other (improving) Neurological: Yes: Alert, Oriented Psychiatric: Yes: Alert, Oriented Labs: CBC, BMP 06/01/18 07:30 06/01/18 07:30 INR, PTT INR 1.00 (0.83-1.09) 05/31/18 06:30 Fibrinogen > 500.0 mg/dL (238-498) H 05/31/18 06:30 Assessment/Plan Problem List - Problems (1) Acute UTI Code(s): N39.0 - URINARY TRACT INFECTION, SITE NOT SPECIFIED (2) Pulmonary nodule Code(s): R91.1 - SOLITARY PULMONARY NODULE (3) Chronic pain Code(s): G89.29 - OTHER CHRONIC PAIN Qualifiers: Chronic pain type: chronic pain syndrome Qualified Code(s): G89.4 - Chronic pain syndrome (4) Abdominal pain Code(s): R10.9 - UNSPECIFIED ABDOMINAL PAIN Qualifiers: Abdominal location: unspecified location Qualified Code(s): R10.9 - Unspecified abdominal pain plan is also for lung biopsy plan continue zosyn still awaiting another cx report rest as per the team biopsy of the lung nodule
--- NOTE | 2018-06-01 13:53 | PN ---
Physical Exam: SUBJECTIVE: Patient seen and examined at bedside. No overnight events, complaining of severe abdominal pain. He states pain in constant sharp 10/10 pain localized to RUQ. No alleviating or aggrevating factors. He states "pain medication is not enough". Denies CP,KIRAN, SOB, nausea or vomiting. OBJECTIVE: Vital Signs Period Temp Pulse Resp BP Sys/Roche Pulse Ox Last 24 Hr 97.3 F-98.7 F 58-68 18-20 130-186/62-86 95 GENERAL: The patient is awake, alert, and fully oriented, in no acute distress. HEAD: Normal with no signs of trauma. EYES: PERRL, extraocular movements intact, sclera anicteric, conjunctiva clear. No ptosis. ENT: Ears normal, nares patent, oropharynx clear without exudates, moist mucous membranes. NECK: Trachea midline, full range of motion, supple. LUNGS: Breath sounds equal, clear to auscultation bilaterally, no wheezes, no crackles, no accessory muscle use. HEART: Regular rate and rhythm, S1, S2 without murmur, rub or gallop. ABDOMEN: Soft, nontender, nondistended, normoactive bowel sounds, no guarding, no rebound, no hepatosplenomegaly, no masses. EXTREMITIES: 2+ pulses, warm, well-perfused, no edema. NEUROLOGICAL: Cranial nerves II through XII grossly intact. Normal speech, gait not observed. PSYCH: Normal mood, normal affect. SKIN: Warm, dry, normal turgor, no rashes or lesions noted Laboratory Results - last 24 hr 06/01/18 06/01/18 07:30 07:30 WBC 10.4 H RBC 4.29 Hgb 13.3 Hct 39.8 MCV 92.8 MCH 31.0 MCHC 33.3 RDW 14.6 Plt Count 378 MPV 9.4 Absolute Neuts (auto) 7.3 Neutrophils % 69.8 Lymphocytes % 15.0 Monocytes % 10.7 H Eosinophils % 4.0 Basophils % 0.5 Nucleated RBC % 0 Sodium 139 Potassium 3.8 Chloride 104 Carbon Dioxide 29 Anion Gap 7 L BUN 10 Creatinine 0.8 Creat Clearance w eGFR > 60 Random Glucose 72 L Calcium 8.7 Active Medications Generic Name Dose Route Start Last Admin Trade Name Freq PRN Reason Stop Dose Admin Acetaminophen 650 mg 05/29/18 01:35 Tylenol - PO Q6H PRN PAIN OR FEVER Diazepam 5 mg 05/29/18 01:33 06/01/18 07:38 Valium - PO 5 mg Q8H PRN Administration MUSCLE SPASMS Heparin Sodium (Porcine) 5,000 unit 05/28/18 22:00 06/01/18 10:42 Heparin - SQ 5,000 unit BID ZAIRA Administration Piperacillin Sod/Tazobactam 50 mls @ 100 mls/hr 05/29/18 13:00 06/01/18 10:41 Sod 3.375 gm/ Dextrose IVPB 100 mls/hr Q8H-IV ZAIRA Administration Protocol Morphine Sulfate 4 mg 05/29/18 09:54 06/01/18 11:01 Morphine 10 Mg/5 Ml Liquid PO 4 mg Q4H PRN Administration PAIN LEVEL 6-10 ASSESSMENT/PLAN: 63 y/o man with a PMHx of Spinal Fx T2-T4 cord transection (Lumbar Fx- fall, ), Neurogenic bladder, recurrent UTIs, Paroxysmal Afib (no AC). Problem List - Problems (1) Pulmonary nodule Assessment/Plan: bilateral pulmonary masses/sclerotic T4 focus * IR guided biopsy of lung masses tomorrow. * Will hold lovenox 24hrs. (2) Paroxysmal A-fib (3) Cellulitis Visit type - Emergency Visit Emergency Visit: Yes ED Registration Date: 05/28/18 Care time: The patient presented to the Emergency Department on the above date and was hospitalized for further evaluation of their emergent condition. - New Patient This patient is new to me today: Yes Date on this admission: 06/02/18 - Critical Care Critical Care patient: No - Discharge Referral Referred to [facility] Med [facility] No
[2018-06-01] MEDS ORDERED: PANTOPRAZOLE SODIUM 40 MG VIAL IVPUSH ONE (17:07)
[2018-06-01] MEDS: SODIUM CHLORIDE 1,000 ML IV SCH (19:05)
--- NOTE | 2018-06-01 20:53 | PN ---
Teaching Attending Note Name of Resident: Yahir Stacy ATTENDING PHYSICIAN STATEMENT I saw and evaluated the patient. I reviewed the resident's note and discussed the case with the resident. I agree with the resident's findings and plan as documented. This is a 63 y/o man with a PMHx of Spinal Fx T2-T4 cord transection (Lumbar Fx - fall, 11/05/81), Neurogenic bladder, recurrent UTIs, Paroxysmal Afib (no AC). We have been consulted about bilateral pulmonary masses/sclerotic T4 focus Will schedule IR guided biopsy of lung masses check bone scan
[2018-06-02] MEDS: PIPERACILLIN/TAZOB 3.375 GM 3.375 GM in DEXTROSE 5%-WATER - 50 ML IVPB SCH ×3 (01:50→18:23)
[2018-06-02] MEDS: morphine SULFATE 10 MG/5 ML UNIT-DOSE CUP PO PRN ×4 (02:17→15:57)
[2018-06-02 07:49] LABS: BASO % 0.7 % (0-2.0); HEMATOCRIT 39.2 % (35.4-49); LYMPH % 15.9 % (8-40); MCH 31.2 pg (25.7-33.7); MCHC 33.3 g/dl (32.0-35.9); MEAN CELL VOLUME 93.7 fl (80-96); MEAN PLT VOLUME 9.2 fl (7.5-11.1); MONO % 10.3 % (3.8-10.2); NEUT % 70.1 % (42.8-82.8); PLATELET COUNT 407 K/MM3 (134-434); RBC 4.19 M/mm3 (4.00-5.60); RDW 14.4 % (11.9-15.9); WHITE BLOOD COUNT 10.1 K/mm3 (4.0-10.0)
[2018-06-02 08:51] LABS: ANION GAP 6 MMOL/L (8-16); BLOOD UREA NITROGEN 9 mg/dL (7-18); CALCIUM 8.5 mg/dL (8.5-10.1); CHLORIDE 104 mmol/L (98-107); CO2 29 mmol/L (21-32); CREATININE 0.7 mg/dL (0.55-1.3); GLUCOSE,RANDOM 80 mg/dL (74-106); MAGNESIUM 2.2 mg/dL (1.8-2.4); PHOSPHOROUS 2.7 mg/dL (2.5-4.9); POTASSIUM 3.8 mmol/L (3.5-5.1); SODIUM 139 mmol/L (136-145)
--- NOTE | 2018-06-02 10:29 | PN ---
Progress Note (short form) - Note Progress Note: PULMONARY Denies shortness of breath, cough. No fevers or chills. Going for lung biopsy today. Vital Signs Period Temp Pulse Resp BP Sys/Roche Pulse Ox Last 24 Hr 97.6 F-98.4 F 48-86 14-20 125-156/53-86 94-100 Gen: NAD at rest Heart: RRR Lung: decreased breath sounds at the bases Abd: soft, nontender Ext: no edema CBC, BMP 06/02/18 07:15 06/02/18 07:15 Active Medications Acetaminophen (Tylenol -) 650 mg PO Q6H PRN PRN Reason: PAIN OR FEVER Diazepam (Valium -) 5 mg PO Q8H PRN PRN Reason: MUSCLE SPASMS Last Admin: 06/01/18 07:38 Dose: 5 mg Piperacillin Sod/Tazobactam (Sod 3.375 gm/ Dextrose) 50 mls @ 100 mls/hr IVPB Q8H-IV ZAIRA; Protocol Last Admin: 06/02/18 01:50 Dose: 100 mls/hr Sodium Chloride (Normal Saline -) 1,000 mls @ 75 mls/hr IV ASDIR ZAIRA Last Admin: 06/01/18 19:05 Dose: Not Given Morphine Sulfate (Morphine 10 Mg/5 Ml Liquid) 4 mg PO Q4H PRN PRN Reason: PAIN LEVEL 6-10 Last Admin: 06/02/18 07:11 Dose: 4 mg A/P Lung Nodules Cellulitis Paroxysmal Atrial Fibrillation Paraplegia - continue antibiotics per ID - for CT guided needle biopsy - DVT prophylaxis
--- NOTE | 2018-06-02 10:52 | CONS ---
PULMONARY CONSULTATION REFERRING PHYSICIAN: Eran Singer MD HISTORY OF PRESENT ILLNESS: The patient is a 63-year-old white male with a past medical history of spinal fracture with a T2-T4 cord transection secondary to trauma, neurogenic bladder, recurrent urinary tract infections, paroxysmal atrial fibrillation, anticoagulation, left ankle deformity. Also, he was recently noted to have bilateral pulmonary nodules on CAT scan. He is a nonsmoker. He was admitted to [facility] for left ankle swelling and redness. Apparently, a home health aide sat on his bed. He does not normally have pain but at that time, he felt a mild pain sensation in that area. He presented to the emergency room with the above. The patient was admitted for therapy for cellulitis of the lower extremity. Again, the patient is a nonsmoker. He has no history of occupational exposures. PAST MEDICAL HISTORY: Again, this includes a spinal fracture with an T2-T4 cord transection secondary to trauma, neurogenic bladder, recurrent urinary tract infections, paroxysmal atrial fibrillation. REVIEW OF SYSTEMS: No orthopnea, PND, chest pain or palpitations. No cough, no hemoptysis. No abdominal pain. CURRENT MEDICATIONS: Tylenol, piperacillin, vancomycin, heparin, Valium and morphine. PHYSICAL EXAMINATION: General: The patient is a well-developed, well-nourished male, awake and alert, in no acute distress. Vital Signs: He is afebrile. Blood pressure is 140/64, respiratory rate 18, O2 saturation is 97% on room air. HEENT: Head is normocephalic, atraumatic. Neck: Supple. Heart: Regular. S1, S2. Chest: Clear. Abdomen: Soft. Bowel sounds are positive. Extremities: There is swelling of the left lower extremity. There is erythema of the left ankle. IMAGING: A chest x-ray shows no infiltrates or effusions. A chest CT done on May 22, 2018 showed multiple bilateral spiculated masses suspicious for malignancy and areas of ground-glass opacification bilaterally. IMPRESSION: 1. Left lower extremity cellulitis. 2. 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 3. Multiple pulmonary masses/nodules, etiology undetermined; malignancy, inflammatory. 4. Hypotension. 5. Recurrent urinary tract infections. 6. Paroxysmal atrial fibrillation. PLAN: 1. Antibiotics as per Infectious Disease. 2. Continue current medications. 3. We will speak with the interventional radiologist about the possibility of obtaining a tissue diagnosis with a CT-guided biopsy. 4. Obtain his previous workup, which includes PET scans. ALYSHA LI M.D. [id number]
[2018-06-02] MEDS ORDERED: PIPERACILLIN/TAZOBACTAM 3.375 GM VIAL IVPB ONE ×2 (11:51→18:09)
[2018-06-02] MEDS ORDERED: DEXTROSE 5%-WATER - 50 ML IVPB ONE ×2 (11:51→18:09)
--- NOTE | 2018-06-02 13:05 | PN ---
Progress Note, Physician Chief Complaint: Mr Bianca states that IR biopsied the wrong side. Explained to him that he has multiple nodules and they accessed the safest one but he remains convinced and demands a second biopsy of the left nodule. Denies cp, sob, n/v. Wants to eat. - Current Medication List Current Medications: Active Medications Acetaminophen (Tylenol -) 650 mg PO Q6H PRN PRN Reason: PAIN OR FEVER Diazepam (Valium -) 5 mg PO Q8H PRN PRN Reason: MUSCLE SPASMS Last Admin: 06/01/18 07:38 Dose: 5 mg Piperacillin Sod/Tazobactam (Sod 3.375 gm/ Dextrose) 50 mls @ 100 mls/hr IVPB Q8H-IV ZAIRA; Protocol Last Admin: 06/02/18 11:54 Dose: 100 mls/hr Sodium Chloride (Normal Saline -) 1,000 mls @ 75 mls/hr IV ASDIR ZAIRA Last Admin: 06/01/18 19:05 Dose: Not Given Morphine Sulfate (Morphine 10 Mg/5 Ml Liquid) 4 mg PO Q4H PRN PRN Reason: PAIN LEVEL 6-10 Last Admin: 06/02/18 11:54 Dose: 4 mg - Objective Vital Signs: Vital Signs Temperature 36.4 C 06/02/18 09:34 Pulse Rate 61 06/02/18 11:46 Respiratory Rate 18 06/02/18 11:46 Blood Pressure 138/62 06/02/18 11:46 O2 Sat by Pulse Oximetry (%) 99 06/02/18 11:09 Constitutional: Yes: Well Nourished, No Distress Cardiovascular: Yes: Regular Rate and Rhythm. No: Gallop, Murmur, Rub Respiratory: Yes: Regular, CTA Bilaterally. No: Rales, Rhonchi, Wheezes Gastrointestinal: Yes: Soft, Hyperactive Bowel Sounds. No: Distention, Tenderness Extremities: Yes: WNL Edema: No Labs: CBC, BMP 06/02/18 07:15 06/02/18 07:15 INR, PTT INR 1.00 (0.83-1.09) 05/31/18 06:30 Fibrinogen > 500.0 mg/dL (238-498) H 05/31/18 06:30 Problem List - Problems (1) Acute UTI Code(s): N39.0 - URINARY TRACT INFECTION, SITE NOT SPECIFIED (2) Pulmonary nodule Code(s): R91.1 - SOLITARY PULMONARY NODULE (3) Chronic pain Code(s): G89.29 - OTHER CHRONIC PAIN Qualifiers: Chronic pain type: chronic pain syndrome Qualified Code(s): G89.4 - Chronic pain syndrome (4) Abdominal pain Code(s): R10.9 - UNSPECIFIED ABDOMINAL PAIN Qualifiers: Abdominal location: unspecified location Qualified Code(s): R10.9 - Unspecified abdominal pain Assessment/Plan (1) Acute UTI Assessment/Plan: -awaiting second organism -ID following -continue zosyn Code(s): N39.0 - URINARY TRACT INFECTION, SITE NOT SPECIFIED (2) Pulmonary nodule Assessment/Plan: -s/p biopsy of R nodule -explained to patient that a second biopsy of the L nodule is not indicated at this time -appreciate oncology assistance -await biopsy results -will order bone scan as well Code(s): R91.1 - SOLITARY PULMONARY NODULE (3) Chronic pain Assessment/Plan: -continue home morphine Code(s): G89.29 - OTHER CHRONIC PAIN Qualifiers: Chronic pain type: chronic pain syndrome Qualified Code(s): G89.4 - Chronic pain syndrome (4) Abdominal pain Assessment/Plan: -AXR shows possible ileus -HOWEVER patient has excellent bowel sounds, is hungry, and no pain on palpation -will restart diet today to see if tolerates -if has worsening pain or nausea/vomiting, will make NPO and obtain CT scan A/P Code(s): R10.9 - UNSPECIFIED ABDOMINAL PAIN Qualifiers: Abdominal location: unspecified location Qualified Code(s): R10.9 - Unspecified abdominal pain
--- NOTE | 2018-06-02 13:45 | PN ---
Progress Note, Physician History of Present Illness: stable coming from post biopsy fo the lung things that it was on the wrong side stable - Current Medication List Current Medications: Active Medications Acetaminophen (Tylenol -) 650 mg PO Q6H PRN PRN Reason: PAIN OR FEVER Diazepam (Valium -) 5 mg PO Q8H PRN PRN Reason: MUSCLE SPASMS Last Admin: 06/01/18 07:38 Dose: 5 mg Piperacillin Sod/Tazobactam (Sod 3.375 gm/ Dextrose) 50 mls @ 100 mls/hr IVPB Q8H-IV ZAIRA; Protocol Last Admin: 06/02/18 11:54 Dose: 100 mls/hr Sodium Chloride (Normal Saline -) 1,000 mls @ 75 mls/hr IV ASDIR ZAIRA Last Admin: 06/01/18 19:05 Dose: Not Given Morphine Sulfate (Morphine 10 Mg/5 Ml Liquid) 4 mg PO Q4H PRN PRN Reason: PAIN LEVEL 6-10 Last Admin: 06/02/18 11:54 Dose: 4 mg - Objective Vital Signs: Vital Signs Temperature 97.6 F 06/02/18 09:34 Pulse Rate 61 06/02/18 11:46 Respiratory Rate 18 06/02/18 11:46 Blood Pressure 138/62 06/02/18 11:46 O2 Sat by Pulse Oximetry (%) 99 06/02/18 11:09 Constitutional: Yes: No Distress, Calm Cardiovascular: Yes: Regular Rate and Rhythm Respiratory: Yes: Regular, CTA Bilaterally Gastrointestinal: Yes: Normal Bowel Sounds, Soft Musculoskeletal: Yes: WNL Extremities: Yes: Other Neurological: Yes: Alert, Oriented Psychiatric: Yes: Alert, Oriented Labs: CBC, BMP 06/02/18 07:15 06/02/18 07:15 INR, PTT INR 1.00 (0.83-1.09) 05/31/18 06:30 Fibrinogen > 500.0 mg/dL (238-498) H 05/31/18 06:30 Assessment/Plan Problem List - Problems (1) Acute UTI Code(s): N39.0 - URINARY TRACT INFECTION, SITE NOT SPECIFIED (2) Pulmonary nodule Code(s): R91.1 - SOLITARY PULMONARY NODULE (3) Chronic pain Code(s): G89.29 - OTHER CHRONIC PAIN Qualifiers: Chronic pain type: chronic pain syndrome Qualified Code(s): G89.4 - Chronic pain syndrome (4) Abdominal pain Code(s): R10.9 - UNSPECIFIED ABDOMINAL PAIN Qualifiers: Abdominal location: unspecified location Qualified Code(s): R10.9 - Unspecified abdominal pain post lung biopsy plan continue zosyn still awaiting another cx report rest as per the team biopsy of the lung nodule
[2018-06-02] MEDS: diazePAM 5 MG TABLET PO PRN (14:57)
--- NOTE | 2018-06-02 16:23 | PN ---
Physical Exam: SUBJECTIVE: Patient seen and examined at bedside. No overnight events. No new complaints. Denies CP,KIRAN, SOB, abdominal pain, nausea or vomiting. OBJECTIVE: Vital Signs Period Temp Pulse Resp BP Sys/Roche Pulse Ox Last 24 Hr 97.6 F-98.4 F 48-86 13-20 125-160/53-86 94-100 GENERAL:awake and alert, NAD Eyes: Yes: Conjunctiva Clear, EOM Intact, PERRL HENT: Yes: WNL, Atraumatic, Normocephalic Neck: Yes: WNL, Supple, Trachea Midline Cardiovascular: Yes: WNL, Regular Rate and Rhythm, S1, S2 Respiratory: Yes: WNL, Regular, CTA Bilaterally Gastrointestinal: Yes: WNL, Normal Bowel Sounds, Soft Breast(s): Yes: WNL Musculoskeletal: Yes: Joint Swelling (left ankle), Muscle Weakness, Other ( flaccid paralysis to lower extremities) Extremities: Yes: Deformity (left ankle), Erythema (left ankle) Edema: Yes Edema: LLE: 1+ Peripheral Pulses WNL: Yes Neurological: Yes: Alert Psychiatric: Yes: WNL, Alert, Oriented Laboratory Results - last 24 hr 06/02/18 06/02/18 07:15 07:15 WBC 10.1 H RBC 4.19 Hgb 13.0 Hct 39.2 MCV 93.7 MCH 31.2 MCHC 33.3 RDW 14.4 Plt Count 407 MPV 9.2 Absolute Neuts (auto) 7.1 Neutrophils % 70.1 Lymphocytes % 15.9 Monocytes % 10.3 H Eosinophils % 3.0 Basophils % 0.7 Nucleated RBC % 0 Sodium 139 Potassium 3.8 Chloride 104 Carbon Dioxide 29 Anion Gap 6 L BUN 9 Creatinine 0.7 Creat Clearance w eGFR > 60 Random Glucose 80 Calcium 8.5 Phosphorus 2.7 Magnesium 2.2 Active Medications Generic Name Dose Route Start Last Admin Trade Name Freq PRN Reason Stop Dose Admin Acetaminophen 650 mg 05/29/18 01:35 Tylenol - PO Q6H PRN PAIN OR FEVER Diazepam 5 mg 05/29/18 01:33 06/02/18 14:57 Valium - PO 5 mg Q8H PRN Administration MUSCLE SPASMS Piperacillin Sod/Tazobactam 50 mls @ 100 mls/hr 05/29/18 13:00 09/25/18 11:54 Sod 3.375 gm/ Dextrose IVPB 100 mls/hr Q8H-IV ZAIRA Administration Protocol Sodium Chloride 1,000 mls @ 75 mls/hr 06/01/18 18:15 06/01/18 19:05 Normal Saline - IV Not Given ASDIR ZAIRA Morphine Sulfate 4 mg 05/29/18 09:54 06/02/18 15:57 Morphine 10 Mg/5 Ml Liquid PO 4 mg Q4H PRN Administration PAIN LEVEL 6-10 ASSESSMENT/PLAN: This is a 63 y/o man with a PMHx of Spinal Fx T2-T4 cord transection (Lumbar Fx - fall, 11/05/81), Neurogenic bladder, recurrent UTIs, Paroxysmal Afib (no AC). Problem List - Problems (1) Pulmonary nodule Assessment/Plan: bilateral pulmonary masses/sclerotic T4 focus * IR guided biopsy of lung masses today * Will hold lovenox for 3 days. (2) Paroxysmal A-fib (3) Cellulitis Visit type - Emergency Visit Emergency Visit: Yes ED Registration Date: 05/28/18 Care time: The patient presented to the Emergency Department on the above date and was hospitalized for further evaluation of their emergent condition. - New Patient This patient is new to me today: No - Critical Care Critical Care patient: No
[2018-06-02] MEDS: SODIUM CHLORIDE 1,000 ML IV SCH (18:24)
[2018-06-02] MEDS ORDERED: POLYETHYLENE GLYCOL 3350 119 GM BTL PO ONE (21:15)
[2018-06-03] MEDS ORDERED: PIPERACILLIN/TAZOBACTAM 3.375 GM VIAL IVPB ONE ×3 (00:13→17:17)
[2018-06-03] MEDS ORDERED: DEXTROSE 5%-WATER - 50 ML IVPB ONE ×3 (00:13→17:17)
[2018-06-03] MEDS: morphine SULFATE 10 MG/5 ML UNIT-DOSE CUP PO PRN ×5 (00:16→20:26)
[2018-06-03] MEDS: PIPERACILLIN/TAZOB 3.375 GM 3.375 GM in DEXTROSE 5%-WATER - 50 ML IVPB SCH ×3 (01:19→17:32)
[2018-06-03 06:57] LABS: BASO % 0.3 % (0-2.0); EOS % 3.3 % (0-4.5); HEMATOCRIT 39.6 % (35.4-49); HEMOGLOBIN 12.9 GM/dL (11.7-16.9); LYMPH % 15.9 % (8-40); MCH 30.3 pg (25.7-33.7); MCHC 32.6 g/dl (32.0-35.9); MEAN CELL VOLUME 93.2 fl (80-96); MEAN PLT VOLUME 9.3 fl (7.5-11.1); MONO % 8.5 % (3.8-10.2); PLATELET COUNT 407 K/MM3 (134-434); RBC 4.25 M/mm3 (4.00-5.60); RDW 14.2 % (11.9-15.9); WHITE BLOOD COUNT 11.2 K/mm3 (4.0-10.0)
[2018-06-03 07:42] LABS: ANION GAP 9 MMOL/L (8-16); BLOOD UREA NITROGEN 9 mg/dL (7-18); CALCIUM 8.8 mg/dL (8.5-10.1); CHLORIDE 108 mmol/L (98-107); CO2 24 mmol/L (21-32); CREATININE 0.6 mg/dL (0.55-1.3); GLUCOSE,RANDOM 75 mg/dL (74-106); MAGNESIUM 2.2 mg/dL (1.8-2.4); PHOSPHOROUS 2.1 mg/dL (2.5-4.9); POTASSIUM 3.9 mmol/L (3.5-5.1); SODIUM 142 mmol/L (136-145)
--- NOTE | 2018-06-03 10:38 | PN ---
Progress Note, Physician Chief Complaint: Mr Valenzuela complains of LLQ abdominal pain that he thinks is exacerbated by eating. No cp, sob, n/v. - Current Medication List Current Medications: Active Medications Acetaminophen (Tylenol -) 650 mg PO Q6H PRN PRN Reason: PAIN OR FEVER Diazepam (Valium -) 5 mg PO Q8H PRN PRN Reason: MUSCLE SPASMS Last Admin: 06/02/18 14:57 Dose: 5 mg Piperacillin Sod/Tazobactam (Sod 3.375 gm/ Dextrose) 50 mls @ 100 mls/hr IVPB Q8H-IV ZAIRA; Protocol Last Admin: 06/03/18 09:45 Dose: 100 mls/hr Sodium Chloride (Normal Saline -) 1,000 mls @ 75 mls/hr IV ASDIR ZAIRA Last Admin: 06/02/18 18:24 Dose: Not Given Morphine Sulfate (Morphine 10 Mg/5 Ml Liquid) 4 mg PO Q4H PRN PRN Reason: PAIN LEVEL 6-10 Last Admin: 06/03/18 05:50 Dose: 4 mg - Objective Vital Signs: Vital Signs Temperature 36.8 C 06/03/18 10:00 Pulse Rate 64 06/03/18 10:00 Respiratory Rate 16 06/03/18 10:00 Blood Pressure 113/48 L 06/03/18 10:00 O2 Sat by Pulse Oximetry (%) 97 06/02/18 21:00 Constitutional: Yes: Well Nourished, No Distress, Calm Cardiovascular: Yes: Regular Rate and Rhythm. No: Gallop, Murmur, Rub Respiratory: Yes: Regular, CTA Bilaterally. No: Rales, Rhonchi, Wheezes Gastrointestinal: Yes: Normal Bowel Sounds, Soft. No: Distention, Tenderness Extremities: Yes: WNL Edema: No Labs: CBC, BMP 06/03/18 06:30 06/03/18 06:30 INR, PTT INR 1.00 (0.83-1.09) 05/31/18 06:30 Fibrinogen > 500.0 mg/dL (238-498) H 05/31/18 06:30 Problem List - Problems (1) Acute UTI Code(s): N39.0 - URINARY TRACT INFECTION, SITE NOT SPECIFIED (2) Pulmonary nodule Code(s): R91.1 - SOLITARY PULMONARY NODULE (3) Chronic pain Code(s): G89.29 - OTHER CHRONIC PAIN Qualifiers: Chronic pain type: chronic pain syndrome Qualified Code(s): G89.4 - Chronic pain syndrome (4) Abdominal pain Code(s): R10.9 - UNSPECIFIED ABDOMINAL PAIN Qualifiers: Abdominal location: unspecified location Qualified Code(s): R10.9 - Unspecified abdominal pain Assessment/Plan (1) Acute UTI Assessment/Plan: -growing serratia and pseudomonas -currently on zosyn -however both susceptible to levaquin -will d/w ID about possible change Code(s): N39.0 - URINARY TRACT INFECTION, SITE NOT SPECIFIED (2) Pulmonary nodule Assessment/Plan: -awaiting results -bone scan today -oncology following Code(s): R91.1 - SOLITARY PULMONARY NODULE (3) Chronic pain Assessment/Plan: -continue home morphine Code(s): G89.29 - OTHER CHRONIC PAIN Qualifiers: Chronic pain type: chronic pain syndrome Qualified Code(s): G89.4 - Chronic pain syndrome (4) Abdominal pain Assessment/Plan: -says abdominal pain is worse today -normal bowel sounds and no pain on palpation -however since concern for possible ileus, will obtain CT scan -possibly secondary to constipation or his chronic abdominal pain Code(s): R10.9 - UNSPECIFIED ABDOMINAL PAIN Qualifiers: Abdominal location: unspecified location Qualified Code(s): R10.9 - Unspecified abdominal pain
[2018-06-03] MEDS ORDERED: POTASSIUM PHOSPHATE 8 MM in SODIUM CHLORIDE 250 ML IVPB ONE (11:00)
--- NOTE | 2018-06-03 12:50 | PN ---
Progress Note, Physician History of Present Illness: some abd pain otherwise is stable - Current Medication List Current Medications: Active Medications Acetaminophen (Tylenol -) 650 mg PO Q6H PRN PRN Reason: PAIN OR FEVER Diazepam (Valium -) 5 mg PO Q8H PRN PRN Reason: MUSCLE SPASMS Last Admin: 06/02/18 14:57 Dose: 5 mg Piperacillin Sod/Tazobactam (Sod 3.375 gm/ Dextrose) 50 mls @ 100 mls/hr IVPB Q8H-IV ZAIRA; Protocol Last Admin: 06/03/18 09:45 Dose: 100 mls/hr Sodium Chloride (Normal Saline -) 1,000 mls @ 75 mls/hr IV ASDIR ZAIRA Last Admin: 06/02/18 18:24 Dose: Not Given Potassium Phosphate 8 mm/ (Sodium Chloride) 252.6667 mls @ 63.16 mls/hr IVPB ONCE ONE Stop: 06/03/18 15:00 Last Admin: 06/03/18 12:21 Dose: 63.16 mls/hr Morphine Sulfate (Morphine 10 Mg/5 Ml Liquid) 4 mg PO Q4H PRN PRN Reason: PAIN LEVEL 6-10 Last Admin: 06/03/18 12:37 Dose: 4 mg - Objective Vital Signs: Vital Signs Temperature 98.3 F 06/03/18 10:00 Pulse Rate 64 06/03/18 10:00 Respiratory Rate 16 06/03/18 10:00 Blood Pressure 113/48 L 06/03/18 10:00 O2 Sat by Pulse Oximetry (%) 97 06/02/18 21:00 Constitutional: Yes: Calm, Mild Distress Cardiovascular: Yes: Regular Rate and Rhythm Respiratory: Yes: Regular, CTA Bilaterally Gastrointestinal: Yes: Normal Bowel Sounds, Soft Extremities: Yes: Other Neurological: Yes: Alert, Oriented Psychiatric: Yes: Alert, Oriented Labs: CBC, BMP 06/03/18 06:30 06/03/18 06:30 INR, PTT INR 1.00 (0.83-1.09) 05/31/18 06:30 Fibrinogen > 500.0 mg/dL (238-498) H 05/31/18 06:30 Assessment/Plan Problem List - Problems (1) Acute UTI Code(s): N39.0 - URINARY TRACT INFECTION, SITE NOT SPECIFIED (2) Pulmonary nodule Code(s): R91.1 - SOLITARY PULMONARY NODULE (3) Chronic pain Code(s): G89.29 - OTHER CHRONIC PAIN Qualifiers: Chronic pain type: chronic pain syndrome Qualified Code(s): G89.4 - Chronic pain syndrome (4) Abdominal pain Code(s): R10.9 - UNSPECIFIED ABDOMINAL PAIN Qualifiers: Abdominal location: unspecified location Qualified Code(s): R10.9 - Unspecified abdominal pain post lung biopsy plan continue zosyn will deescalate after today rest continue current mgmt
--- NOTE | 2018-06-03 14:06 | PN ---
Progress Note (short form) - Note Progress Note: PULMONARY s/p CT guided needle biopsy yesterday. Denies shortness of breath, cough. No fevers or chills. Vital Signs Period Temp Pulse Resp BP Sys/Roche Pulse Ox Last 24 Hr 98.1 F-98.8 F 62-97 16-20 80-156/45-74 97 Gen: NAD at rest Heart: RRR Lung: decreased breath sounds at the bases Abd: soft, nontender Ext: no edema CBC, BMP 06/03/18 06:30 06/03/18 06:30 Active Medications Acetaminophen (Tylenol -) 650 mg PO Q6H PRN PRN Reason: PAIN OR FEVER Diazepam (Valium -) 5 mg PO Q8H PRN PRN Reason: MUSCLE SPASMS Last Admin: 06/02/18 14:57 Dose: 5 mg Piperacillin Sod/Tazobactam (Sod 3.375 gm/ Dextrose) 50 mls @ 100 mls/hr IVPB Q8H-IV ZAIRA; Protocol Last Admin: 06/03/18 09:45 Dose: 100 mls/hr Sodium Chloride (Normal Saline -) 1,000 mls @ 75 mls/hr IV ASDIR ZAIRA Last Admin: 06/02/18 18:24 Dose: Not Given Potassium Phosphate 8 mm/ (Sodium Chloride) 252.6667 mls @ 63.16 mls/hr IVPB ONCE ONE Stop: 06/03/18 15:00 Last Admin: 06/03/18 12:21 Dose: 63.16 mls/hr Morphine Sulfate (Morphine 10 Mg/5 Ml Liquid) 4 mg PO Q4H PRN PRN Reason: PAIN LEVEL 6-10 Last Admin: 06/03/18 12:37 Dose: 4 mg A/P Lung Nodules Cellulitis Paroxysmal Atrial Fibrillation Paraplegia - continue antibiotics per ID - f/u pathology - DVT prophylaxis
--- NOTE | 2018-06-03 18:14 | PN ---
Physical Exam: SUBJECTIVE: Patient seen and examined at bedside. No overnight events, continues to complain of abdominal pain. "I need more pain meds". Denies CP,KIRAN , SOB, nausea or vomiting. OBJECTIVE: Vital Signs Period Temp Pulse Resp BP Sys/Roche Pulse Ox Last 24 Hr 98.2 F-98.8 F 61-64 16-20 110-156/48-69 97-98 GENERAL: AAOx3, NAD ENT: moist mucous membranes. LUNGS: CTAB, no wheezes, no crackles, no accessory muscle use. HEART: RRR, S1, S2 without murmur, rub or gallop. ABDOMEN: Soft, NT/ND,NABS no guarding, no rebound, no hepatosplenomegaly, no masses. EXTREMITIES: 2+ pulses, warm, well-perfused, no edema. NEUROLOGICAL: paraplegic from waist down. Laboratory Results - last 24 hr 06/03/18 06/03/18 06:30 06:30 WBC 11.2 H RBC 4.25 Hgb 12.9 Hct 39.6 MCV 93.2 MCH 30.3 MCHC 32.6 RDW 14.2 Plt Count 407 MPV 9.3 Absolute Neuts (auto) 8.0 Neutrophils % 72.0 Lymphocytes % 15.9 Monocytes % 8.5 Eosinophils % 3.3 Basophils % 0.3 Nucleated RBC % 0 Sodium 142 Potassium 3.9 Chloride 108 H Carbon Dioxide 24 Anion Gap 9 BUN 9 Creatinine 0.6 Creat Clearance w eGFR > 60 Random Glucose 75 Calcium 8.8 Phosphorus 2.1 L Magnesium 2.2 Active Medications Generic Name Dose Route Start Last Admin Trade Name Freq PRN Reason Stop Dose Admin Acetaminophen 650 mg 05/29/18 01:35 Tylenol - PO Q6H PRN PAIN OR FEVER Diazepam 5 mg 05/29/18 01:33 06/02/18 14:57 Valium - PO 5 mg Q8H PRN Administration MUSCLE SPASMS Piperacillin Sod/Tazobactam 50 mls @ 100 mls/hr 05/29/18 13:00 06/03/18 17:32 Sod 3.375 gm/ Dextrose IVPB 100 mls/hr Q8H-IV ZAIRA Administration Protocol Sodium Chloride 1,000 mls @ 75 mls/hr 06/01/18 18:15 06/02/18 18:24 Normal Saline - IV Not Given ASDIR ZAIRA Morphine Sulfate 4 mg 05/29/18 09:54 06/03/18 16:25 Morphine 10 Mg/5 Ml Liquid PO 4 mg Q4H PRN Administration PAIN LEVEL 6-10 ASSESSMENT/PLAN: This is a 63 y/o man with a PMHx of Spinal Fx T2-T4 cord transection (Lumbar Fx - fall, 11/05/81), Neurogenic bladder, recurrent UTIs, Paroxysmal Afib (no AC). Found to have pulmonary nodule. Problem List - Problems (1) Pulmonary nodule Assessment/Plan: bilateral pulmonary masses/sclerotic T4 focus * IR guided biopsy of lung mass results pending (2) Paroxysmal A-fib (3) Cellulitis Visit type - Emergency Visit Emergency Visit: Yes ED Registration Date: 05/28/18 Care time: The patient presented to the Emergency Department on the above date and was hospitalized for further evaluation of their emergent condition. - New Patient This patient is new to me today: No - Critical Care Critical Care patient: No - Discharge Referral Referred to [facility] No
[2018-06-04] MEDS: morphine SULFATE 10 MG/5 ML UNIT-DOSE CUP PO PRN ×3 (01:03→10:31)
[2018-06-04] MEDS ORDERED: PIPERACILLIN/TAZOBACTAM 3.375 GM VIAL IVPB ONE ×2 (01:06→10:26)
[2018-06-04] MEDS: PIPERACILLIN/TAZOB 3.375 GM 3.375 GM in DEXTROSE 5%-WATER - 50 ML IVPB SCH ×2 (01:07→10:31)
[2018-06-04] MEDS ORDERED: DEXTROSE 5%-WATER - 50 ML IVPB ONE ×2 (01:07→10:26)
[2018-06-04] MEDS: SODIUM CHLORIDE 1,000 ML IV SCH ×2 (06:45→07:37)
[2018-06-04] MEDS: diazePAM 5 MG TABLET PO PRN (06:51)
[2018-06-04 07:23] VITALS: PULSE 68
[2018-06-04 08:04] LABS: BASO % 1.2 % (0-2.0); EOS % 5.1 % (0-4.5); HEMATOCRIT 38.8 % (35.4-49); HEMOGLOBIN 12.6 GM/dL (11.7-16.9); LYMPH % 15.3 % (8-40); MCH 30.5 pg (25.7-33.7); MCHC 32.4 g/dl (32.0-35.9); MEAN PLT VOLUME 9.8 fl (7.5-11.1); MONO % 10.6 % (3.8-10.2); NEUT % 67.8 % (42.8-82.8); PLATELET COUNT 400 K/MM3 (134-434); RBC 4.13 M/mm3 (4.00-5.60); RDW 14.4 % (11.9-15.9); WHITE BLOOD COUNT 10.9 K/mm3 (4.0-10.0)
[2018-06-04 08:19] LABS: ANION GAP 12 MMOL/L (8-16); BLOOD UREA NITROGEN 7 mg/dL (7-18); CHLORIDE 106 mmol/L (98-107); CO2 23 mmol/L (21-32); CREATININE 0.6 mg/dL (0.55-1.3); GLUCOSE,RANDOM 63 mg/dL (74-106); PHOSPHOROUS 2.6 mg/dL (2.5-4.9); POTASSIUM 4.5 mmol/L (3.5-5.1); SODIUM 142 mmol/L (136-145)
--- NOTE | 2018-06-04 10:10 | PN ---
Progress Note (short form) - Note Progress Note: PULMONARY Pathology pending. Denies shortness of breath, cough. No fevers or chills. Vital Signs Period Temp Pulse Resp BP Sys/Roche Pulse Ox Last 24 Hr 97.6 F-98.6 F 61-69 18-20 150-160/58-69 97 Gen: NAD at rest Heart: RRR Lung: decreased breath sounds at the bases Abd: soft, nontender Ext: no edema CBC, BMP 06/04/18 06:44 06/04/18 06:44 Active Medications Acetaminophen (Tylenol -) 650 mg PO Q6H PRN PRN Reason: PAIN OR FEVER Diazepam (Valium -) 5 mg PO Q8H PRN PRN Reason: MUSCLE SPASMS Last Admin: 06/04/18 06:51 Dose: 5 mg Piperacillin Sod/Tazobactam (Sod 3.375 gm/ Dextrose) 50 mls @ 100 mls/hr IVPB Q8H-IV ZAIRA; Protocol Last Admin: 06/04/18 01:07 Dose: 100 mls/hr Sodium Chloride (Normal Saline -) 1,000 mls @ 75 mls/hr IV ASDIR ZAIRA Last Admin: 06/04/18 07:37 Dose: Not Given Morphine Sulfate (Morphine 10 Mg/5 Ml Liquid) 4 mg PO Q4H PRN PRN Reason: PAIN LEVEL 6-10 Last Admin: 06/04/18 06:49 Dose: 4 mg A/P Lung Nodules Cellulitis Paroxysmal Atrial Fibrillation Paraplegia - continue antibiotics per ID - f/u pathology, can be followed up as outpt - DVT prophylaxis
--- NOTE | 2018-06-04 11:52 | DS ---
Physical Examination Vital Signs: Vital Signs Temperature 36.8 C 06/04/18 06:00 Pulse Rate 68 06/04/18 06:00 Respiratory Rate 18 06/04/18 06:00 Blood Pressure 160/58 L 06/04/18 06:00 O2 Sat by Pulse Oximetry (%) 97 06/03/18 21:00 Constitutional: Yes: Well Nourished, No Distress, Calm Cardiovascular: Yes: Regular Rate and Rhythm. No: Gallop, Murmur, Rub Respiratory: Yes: Regular, CTA Bilaterally. No: Rales, Rhonchi, Wheezes Gastrointestinal: Yes: Normal Bowel Sounds, Soft. No: Distention, Tenderness Extremities: Yes: WNL Edema: No Labs: CBC, BMP 06/04/18 06:44 06/04/18 06:44 Discharge Summary Reason For Visit: CELLULITIS Current Active Problems Anxiety (Acute) Cellulitis (Acute) Fracture of tibia, distal, left, closed (Acute) Leukocytosis (Acute) Paroxysmal A-fib (Acute) Hospital Course: (1) Acute UTI Code(s): N39.0 - URINARY TRACT INFECTION, SITE NOT SPECIFIED (2) Pulmonary nodule Code(s): R91.1 - SOLITARY PULMONARY NODULE (3) Chronic pain Code(s): G89.29 - OTHER CHRONIC PAIN Qualifiers: Chronic pain type: chronic pain syndrome Qualified Code(s): G89.4 - Chronic pain syndrome (4) Abdominal pain Code(s): R10.9 - UNSPECIFIED ABDOMINAL PAIN Qualifiers: Abdominal location: unspecified location Qualified Code(s): R10.9 - Unspecified abdominal pain Mr Valenzuela is a 63 year old male who comes in with acute UTI secondary to pseudomonas and serratia and biopsy for a pulmonary nodule. He was admitted to the hospital and seen by ID. He was placed on zosyn, when the cultures resulted both bacteria are sensitive to levaquin and per ID he can finish his course with oral levaquin. He was seen by pulmonary and oncology. He underwent lung biopsy and results are pending. He also had a bone scan with uptake at L1. Results are pending but can be followed up as an outpatient. He is currently stable for discharge home. 33 minutes spent in preparation of this discharge Condition: Stable - Instructions Diet, Activity, Other Instructions: resume previous diet and activity Referrals: Juan Manuel Kang MD [Primary Care Provider] - Disposition: VNS/HOME HEALTH CARE - Home Medications Comprehensive Discharge Medication List: Ambulatory Orders Diazepam [Valium] 10 mg PO TID PRN #30 tablet MDD 30mg 09/16/16 Morphine 10 mg/5 ml Liquid [Morphine 10 mg/5 mL Liquid -] 4 mg PO Q4H PRN ml MDD 60mg 06/04/18 levoFLOXacin [Levaquin] 750 mg PO DAILY #7 tab 06/04/18
[2018-06-04 12:25] VITALS: BP 147/68; TEMP 98.2
--- NOTE | 2018-06-08 12:13 | PATH ---
Surgical Pathology Report Patient Name: LORELEI MARVIN Med. Rec. #: [id number] /Age/Gender: 1955 (Age: 63) / M Account: [id number] Location: [facility] MED/SURG Taken: 06/02/2018 Received: 06/02/2018 Reported: 06/08/2018 Physicians: Jayesh Glover M.D. Eran Singer M.D. Specimen(s) Received RIGHT LUNG BIOPSY Clinical History Bilateral lung spiculated lesions with ground glass opacities, rule out lung primary cancer. Final Diagnosis RIGHT LUNG, BIOPSY: ADENOCARCINOMA, WITH PAPILLARY FEATURES, CONSISTENT WITH LUNG PRIMARY. COMMENT: Immunohistochemical stained slides demonstrate tumor cells to be positive for TTF-1, CK 7, Napsin A, while negative for Thyroglobulin, CK20, and P40. The morphology and immunophenotype support a diagnosis of adenocarcinoma of lung primary. Immunohistochemistry stains Thyroglobulin, Napsin A, and P40 performed at [place], [place] ([id number]) interpreted at [facility]. Immunohistochemistry stains CK7, CK20, and TTF-1 performed and interpreted at [facility]. Positive and negative controls (internal if applicable) show appropriate results. Intradepartmental case reviewed with consensus on diagnosis. This case was discussed with Dr. Singer on June 08, 2018. Electronically Signed Kyle John M.D. Gross Description Received in formalin, labeled "right lung biopsy", are multiple camacho, cylindrical soft tissue measuring 0.4 x 0.3 x 0.1 cm in aggregate. The specimen is submitted in toto in one cassette. KWS/06/02/2018 ino/06/02/2018
== END 2018-06-04 13:53 | disposition home health service (06) | DRG 603 ==
LOC: JER 15:41 → JERBED 20:14 → UNDOADMIN 20:31 → JERBED 20:31 → J8W 05-29 15:52
PROVIDERS: ADMIT Internal Medicine; ATTEND Internal Medicine
PROC: 0BBK3ZX Excision of Right Lung, Percutaneous Approach, Diagnostic (ICD-10-PCS; principal; 2018-06-02)
DX: L03.116 Cellulitis of left lower limb (principal); G82.20 Paraplegia, unspecified; K56.7 Ileus, unspecified; M80.062A Age-related osteoporosis with current pathological fracture, left lower leg, initial encounter for fracture; N39.0 Urinary tract infection, site not specified; I48.0 Paroxysmal atrial fibrillation; N31.9 Neuromuscular dysfunction of bladder, unspecified; G89.4 Chronic pain syndrome; D18.00 Hemangioma unspecified site; R91.1 Solitary pulmonary nodule; D72.829 Elevated white blood cell count, unspecified; F41.9 Anxiety disorder, unspecified; I35.0 Nonrheumatic aortic (valve) stenosis; L89.892 Pressure ulcer of other site, stage 2; R10.9 Unspecified abdominal pain; B96.5 Pseudomonas (aeruginosa) (mallei) (pseudomallei) as the cause of diseases classified elsewhere; Z87.891 Personal history of nicotine dependence
CPT/HCPCS: 32405; 36415; 71045-TC-FY; 73610-TC-LT-FY; 73630-TC-LT; 74018-TC-FY; 74176-TC; 76098-TC-FY; 77012-TC; 78306-TC; 80048; 80053; 81003; 81015; 83735; 84100; 85025; 85384; 85610; 85651; 85730; 87040; 87086; 87186; 87899; 88305-TC; 88341-TC; 93005; 93010; 93971-TC; 99284-25; A9503; J1644; J7030

== ENCOUNTER 2018-06-11 13:02 | Emergency (ER) | payer OTHER, BC ==
[2018-06-11 13:13] VITALS: BP 150/71; PULSE 62; TEMP 98.6; BMI 18.8
--- NOTE | 2018-06-11 14:50 | PDOC ---
History of Present Illness - General Chief Complaint: Pain Stated Complaint: ABD PAIN Time Seen by Provider: 06/11/18 14:04 History Source: Patient Exam Limitations: No Limitations - History of Present Illness Initial Comments: 06/11/18 14:45 Pt is a 63yo m with PMH of spinal cord transection at T4, neurogenic bladder with recurrent UTI, COPD, splenectomy presenting to ED with complaints of "bladder pain" and breast pain. Pt said he called Dr. Ayon about the breast this morning and was told to come to the hospital. He had a biopsy done and pt states the he was told it was cancerous. His bladder pain started about 3 days ago and he states it feels like a uti. He denies fever, chills, new rashes/ lesions, cough, shortness of breath, chest pain, headache, neck pain, back pain , n/v/d (he does not have control over bladder/bowel). PCP: Nany PMH: see hpi PSH: wrist surgery, splenectomy Meds: Social: denies Allergies: nkda Past History - Past Medical History Allergies/Adverse Reactions: Allergies Allergy/AdvReac Type Severity Reaction Status Date / Time No Known Allergies Allergy Verified 06/11/18 13:13 Home Medications: Ambulatory Orders NK [No Known Home Medication] 06/11/18 Anemia: No Asthma: No Cancer: No Cardiac Disorders: No CVA: No COPD: Yes CHF: No Dementia: No Diabetes: No GI Disorders: No Disorders: Yes (Recurrent UTI, 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) HTN: (Hypotension) Hypercholesterolemia: No Liver Disease: No Seizures: No Thyroid Disease: No Other medical history: PARAPALGIA - Surgical History Abdominal Surgery: No Appendectomy: No Cardiac Surgery: No Cholecystectomy: No Lung Surgery: No Neurologic Surgery: No Orthopedic Surgery: Yes (fracture right wrist s/p fusion) - Immunization History Td Vaccination: No Immunization Up to Date: No - Suicide/Smoking/Psychosocial Hx Smoking Status: No Smoking History: Never smoked Years of Tobacco Use: 0 Have you smoked in the past 12 months: No Number of Cigarettes Smoked Daily: 3 If you are a former smoker, when did you quit?: 1986 Cigars Per Day: 0 Information on smoking cessation initiated: No Hx Alcohol Use: Yes (social) Drug/Substance Use Hx: No Substance Use Type: None Hx Substance Use Treatment: No Review of Systems - Review of Systems Able to Perform ROS?: Yes Comments:: 06/11/18 23:38 Pt is paralyzed from the axilla down and does not have sensation below the axilla. Is the patient limited Italian proficient: No Constitutional: No: Chills, Fever HEENTM: No: Recent change in vision, Nose Congestion, Throat Pain Respiratory: No: Cough, Shortness of Breath, Hemoptysis Cardiac (ROS): No: Chest Pain, Lightheadedness, Palpitations, Syncope ABD/GI: Yes: Other (Pt does not have control of bowels. ). No: Nausea, Rectal Bleeding, Vomiting, Tarry Stools : Yes: Other ("Bladder pain" Pt does not have control of bladder and does not have sensation of fullness or urgency.). No: Hematuria, Testicular Mass Musculoskeletal: Yes: Muscle Pain ("breast pain"), Other (Pt does not have sensation below axilla) Integumentary: No: Erythema, Lesions, Rash Neurological: Yes: Pre-Existing Deficit (paralyzed and no sensation below axilla ). No: Headache, Numbness, Tingling, Tremors Hematologic/Lymphatic: No: Blood Clots *Physical Exam - Vital Signs Last Vital Signs Temp Pulse Resp BP Pulse Ox 98.6 F 62 18 150/71 94 L 06/11/18 13:08 06/11/18 13:08 06/11/18 13:08 06/11/18 13:08 06/11/18 13:08 - Physical Exam Comments: 06/11/18 23:41 Pt lying in stretcher on R side and is holding condom catheter in place. Pt is paralyzed below the arms and does not have sensation below the nipple line L foot in ted wrap and posterior board from previous admission. 06/11/18 23:44 06/11/18 23:46 General Appearance: Yes: Appropriately Dressed, Other (legs are thin and contracted). No: Apparent Distress HEENT: positive: EOMI, FRANCIE, Normal ENT Inspection, Pharynx Normal, Hearing Grossly Normal. negative: Pale Conjunctivae, Scleral Icterus (R), Scleral Icterus (L), Nasal Congestion, Sinus Tenderness Neck: positive: Trachea midline, Supple. negative: Carotid bruit, Lymphadenopathy (R), Lymphadenopathy (L) Respiratory/Chest: positive: Lungs Clear, Normal Breath Sounds. negative: Crackles, Rales, Rhonchi, Stridor, Wheezing Cardiovascular: positive: Regular Rhythm, Regular Rate, S1, S2. negative: Edema , JVD, Murmur Vascular Pulses: Carotid (R): 2+, Carotid (L): 2+, Dorsalis-Pedis (R): 2+, Doralis-Pedis (L): 2+ Gastrointestinal/Abdominal: positive: Normal Bowel Sounds, Soft. negative: Distended, Guarding, Rebound, Tenderness (Pt does not have sensation) Male Genitalia: positive: normal genitalia, other (no scrotal rash). negative: testicular tenderness (Pt does not have sensation), testicular mass, hematuria Musculoskeletal: positive: Other (full ROM of upper extremities) Extremity: positive: Normal Capillary Refill, Pedal Edema (Edema of L foot. ), Calf Tenderness. negative: Erythema Integumentary: positive: Normal Color, Dry, Warm. negative: Rash Neurologic: positive: emergency manager II-XII NML intact, Fully Oriented, Alert, Normal Mood/ Affect, Normal Response, Motor Strength 5/5 (in upper extremities) ED Treatment Course - LABORATORY CBC & Chemistry Diagram: 06/11/18 15:00 06/11/18 15:50 Medical Decision Making - Medical Decision Making 06/11/18 16:53 63yo m with PMH of spinal cord transection at t4, neurogenic bladder with recurrent uti, COPD, newly diagnosed lung andenocarcinoma presenting to ED with "bladder and breast pain" pt recently had biopsy on R side. Will check for lung pathology. UA- negative for infection. Labs hemolyzed, had to be redrawn. CBC wnl second cmp wnl. Spoke to Dr. Kang. He is aware pt is in the ED. Stated that patient should receive outpt follow up for lung ca. deferring abdominal ct at this time, no abdominal symptoms (n/v) and UA negative for uti. CXR- no new changes since CXR in may. R lobe density resolved. Pt was given 4mg morphine for pain management. Spoke to patient regarding outpatient follow up for lung cancer with Dr. Chambers. Pt agreed and did not want to stay in hospital. Pain adequately managed with morhpine. Pt is taking morphine at home. 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 Safe for d/c home. Pt agreed with plan. Given strict return precautions. PT and aide verbalized understanding 06/11/18 18:07 Pt still complaining of pain while waiting for transportation back home. Will order another 4mg morphine *DC/Admit/Observation/Transfer Diagnosis at time of Disposition: Abdominal pain Qualifiers: Abdominal location: left lower quadrant Qualified Code(s): R10.32 - Left lower quadrant pain - Discharge Dispostion Disposition: HOME Condition at time of disposition: Good Decision to Admit order: No - Referrals Referrals: Juan Manuel Kang MD [Primary Care Provider] - Zheng Chambers MD [Staff Physician] - - Patient Instructions Additional Instructions: You were seen here today because you were having bladder pain and breast pain. All your tests were normal. Please remember to follow up with Dr. Kang and make an appointment to see Dr. Chambers for further evaluation and management of your lungs. His number is Please come back to the emergency room if: your pain gets worse, you notice a change in the color of your urine, you notice blood in the stools, you develop a new rash or skin changes, you start to cough up blood, you develop fever, you develop chest pain or if any new concerning symptom develops. Thank you - Post Discharge Activity
[2018-06-11 15:31] LABS: EOS % 1.8 % (0-4.5); HEMATOCRIT 41.7 % (35.4-49); HEMOGLOBIN 13.7 GM/dL (11.7-16.9); LYMPH % 12.7 % (8-40); MCH 30.2 pg (25.7-33.7); MCHC 32.8 g/dl (32.0-35.9); MEAN CELL VOLUME 92.1 fl (80-96); MEAN PLT VOLUME 9.7 fl (7.5-11.1); NEUT % 74.5 % (42.8-82.8); PLATELET COUNT 638 K/MM3 (134-434); RBC 4.53 M/mm3 (4.00-5.60); RDW 14.6 % (11.9-15.9)
[2018-06-11 15:51] LABS: URINE APPEARANCE CLOUDY; URINE BILIRUBIN NEGATIVE (<2.0 mg/dL); URINE COLOR LTYELLOW; URINE GLUCOSE (UA) NEGATIVE (NEGATIVE); URINE KETONE NEGATIVE (NEGATIVE); URINE LEUK ESTERASE NEGATIVE (NEGATIVE); URINE NITRITE NEGATIVE (NEGATIVE); URINE PROTEIN NEGATIVE (NEGATIVE); URINE UROBILINOGEN NEGATIVE mg/dL (0.2-1.0)
[2018-06-11 17:03] LABS: ALK PHOS 173 U/L (45-117); ANION GAP 7 MMOL/L (8-16); BILIRUBIN,TOTAL 0.5 mg/dL (0.2-1); BLOOD UREA NITROGEN 6 mg/dL (7-18); CALCIUM 9.2 mg/dL (8.5-10.1); CHLORIDE 105 mmol/L (98-107); CO2 26 mmol/L (21-32); CREATININE 0.6 mg/dL (0.55-1.3); GLUCOSE,RANDOM 97 mg/dL (74-106); N-TERMINAL BNP 146.5 pg/ml (5-125); POTASSIUM 4.4 mmol/L (3.5-5.1); SGOT/AST 16 U/L (15-37); SGPT/ALT 18 U/L (13-61); SODIUM 138 mmol/L (136-145); TOT PROT 7.2 g/dl (6.4-8.2)
[2018-06-11] MEDS ORDERED: morphine CARPU-JECT 4 MG/1 ML DISP.SYRIN IVPUSH ONE (17:04)
[2018-06-11] MEDS ORDERED: morphine SULFATE 4 MG/ML VIAL ONE ×2 (17:08→18:48)
--- NOTE | 2018-06-11 17:08 | PDOC ---
Attending Attestation - Resident Resident Name: Kalie Cruz - ED Attending Attestation I have performed the following: I have examined & evaluated the patient, The case was reviewed & discussed with the resident, I agree w/resident's findings & plan, Exceptions are as noted - HPI HPI: 06/11/18 17:04 "The patient is a 63 year old male, with a significant past medical history of spinal fracture (w/ T2-T4 cord transection), neurogenic bladder (w/ recurrent UTI), paroxysmal afib (not on AC) who presents to the emergency department with bilateral breast pain today. He states he had a lung biopsy recently and has been having pain at the biopsy site. Denies SOB. Denies F/C. Pt also reports "bladder pain". States that he has a soreness in his lower abdomen that is usually a sign of a bladder infection. He denies any other complaints at this time. The patient denies fever, chills, nausea, vomit, diarrhea and constipation. The patient denies dysuria, frequency, urgency and hematuria. Allergies: NKDA PCP - Dr. Daniel Kang " - Physicial Exam PE: 06/11/18 17:06 GENERAL: Awake, alert, and fully oriented, in no acute distress. HEAD: No signs of trauma EYES: PERRLA, EOMI, sclera anicteric, conjunctiva clear ENT: Auricles normal inspection, hearing grossly normal, nares patent, oropharynx clear without exudates. Moist mucosa NECK: Nontender, no stepoffs, Normal ROM, supple, no lymphadenopathy, JVD, or masses LUNGS: + Biopsy site well healing, no erythema/induration/fluctuance, Breath sounds equal, clear to auscultation bilaterally. No wheezes, and no crackles HEART: Regular rate and rhythm, normal S1 and S2, no murmurs, rubs or gallops ABDOMEN: Soft, nontender, normoactive bowel sounds. No guarding, no rebound. No masses EXTREMITIES: Normal range of motion, no edema. No clubbing or cyanosis. No cords, erythema, or tenderness NEUROLOGICAL: Cranial nerves II through XII intact. SKIN: Warm, Dry, normal turgor, no rashes or lesions noted. - Medical Decision Making 06/11/18 17:07 63 M with pain at biopsy sites and suprapubic discomfort. Will evaluate for pneumo or other complication 2/2 lung biopsy. Also check labs and urine to r/o UTI. - labs, UA - CXR - Pain control Labs, XR unremarkable Pt is well appearing, with normal vitals. Clinically stable for DC at this time. I discussed the physical exam findings, ancillary test results and final diagnoses with the patient. I answered all of the patient's questions. The patient was satisfied with the care received and felt comfortable with the discharge plan and treatment plan. The patient agrees to follow up with the primary care physician within 24-72 hours.
[2018-06-11] MEDS ORDERED: morphine CARPU-JECT 2 MG/1 ML DISP.SYRIN IVPUSH ONE (18:06)
--- NOTE | 2018-06-12 09:31 | EKG ---
Test Reason : Blood Pressure : / mmHG Vent. Rate : 056 BPM Atrial Rate : 056 BPM P-R Int : 146 ms QRS Dur : 084 ms QT Int : 440 ms P-R-T Axes : 054 073 086 degrees QTc Int : 424 ms SINUS BRADYCARDIA OTHERWISE NORMAL ECG WHEN COMPARED WITH ECG OF 28-MAY-2018 16:59, VENT. RATE HAS DECREASED BY 40 BPM Confirmed by CHICHI PUTNAM MD ([id number]) on 06/12/2018 9:31:19 AM Referred By: Confirmed By:CHICHI PUTNAM MD
== END 2018-06-11 20:58 | disposition home or self-care (01) ==
LOC: JER 13:02
PROC: 3E033NZ Introduction of Analgesics, Hypnotics, Sedatives into Peripheral Vein, Percutaneous Approach (ICD-10-PCS; principal; 2018-06-11)
DX: R10.32 Left lower quadrant pain (principal); N39.0 Urinary tract infection, site not specified; J44.9 Chronic obstructive pulmonary disease, unspecified; G95.9 Disease of spinal cord, unspecified
CPT/HCPCS: 36415; 71045-TC-FY; 80053; 81003; 82550; 83880; 84100; 84484; 85025; 85730; 87077; 87086; 93005; 93010; 99282-25

== ENCOUNTER 2018-06-15 13:51 | Observation (INO) | payer OTHER, BC ==
[2018-06-15] MEDS ORDERED: morphine CARPU-JECT 4 MG/1 ML DISP.SYRIN IVPUSH ONE ×2 (14:25→16:29)
--- NOTE | 2018-06-15 14:35 | PDOC ---
History of Present Illness - General Stated Complaint: ABD,CHEST,BACK PAIN Time Seen by Provider: 06/15/18 14:12 History Source: Patient, Primary Care Provider Past History - Past Medical History Allergies/Adverse Reactions: Allergies Allergy/AdvReac Type Severity Reaction Status Date / Time No Known Allergies Allergy Verified 06/15/18 14:10 Home Medications: Ambulatory Orders NK [No Known Home Medication] 06/15/18 Anemia: No Asthma: No Cancer: No Cardiac Disorders: No CVA: No COPD: Yes CHF: No Dementia: No Diabetes: No GI Disorders: No Disorders: Yes (Recurrent UTI, 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) HTN: (Hypotension) Hypercholesterolemia: No Liver Disease: No Seizures: No Thyroid Disease: No - Surgical History Abdominal Surgery: No Appendectomy: No Cardiac Surgery: No Cholecystectomy: No Lung Surgery: No Neurologic Surgery: No Orthopedic Surgery: Yes (fracture right wrist s/p fusion) - Immunization History Td Vaccination: No Immunization Up to Date: No - Suicide/Smoking/Psychosocial Hx Smoking Status: No Smoking History: Never smoked Years of Tobacco Use: 0 Have you smoked in the past 12 months: No Number of Cigarettes Smoked Daily: 3 If you are a former smoker, when did you quit?: 1986 Cigars Per Day: 0 Hx Alcohol Use: Yes (social) Drug/Substance Use Hx: No Substance Use Type: None Hx Substance Use Treatment: No Review of Systems - Review of Systems Constitutional: No: Chills, Fever Respiratory: No: Cough, Shortness of Breath Cardiac (ROS): Yes: Chest Pain. No: Lightheadedness, Palpitations ABD/GI: No: Constipated, Diarrhea, Nausea, Rectal Bleeding, Vomiting : No: Hematuria *Physical Exam - Physical Exam General Appearance: Yes: Appropriately Dressed. No: Apparent Distress HEENT: positive: Normal Voice Neck: positive: Supple Respiratory/Chest: positive: Lungs Clear, Normal Breath Sounds. negative: Respiratory Distress Cardiovascular: positive: Regular Rate, S1, S2 Gastrointestinal/Abdominal: positive: Soft. negative: Tender, Distended Musculoskeletal: negative: CVA Tenderness Integumentary: positive: Dry, Warm Neurologic: positive: Fully Oriented, Alert, Normal Mood/Affect, Other (no sensation below nipple line (2/2 SCI remotely)) ED Treatment Course - LABORATORY CBC & Chemistry Diagram: 06/15/18 15:15 06/15/18 15:15 - RADIOLOGY Radiology Studies Ordered: Category Date Time Status CHEST X-RAY PORTABLE* [RAD] Stat Radiology 06/15/18 14:22 Ordered Medical Decision Making - Medical Decision Making 06/15/18 14:26 63 yo M, h/o paraplegia 2/2 SCI remotely, neurogenic bladder w/ recurrent UTI, pafib (not on AC), chronic back/chest/abd pain, on morphine, newly diagnosed lung ca (not yet been treated), here w/ his usual chronic pain, worse yesterday. States he has no pain medication at home. Denies any SOB, diaphoresis , palpitations, leg pain/swelling, n/v/f/c See exam Acute on chronic pain Ran out of pain meds Denies acute sxs Stable and well evaristo w/ unremarkable exam -pain control -ekg/cxr/labs -discuss dispo w/ PMD 06/15/18 14:[address] Kang, patient's PMD, who confirmed that patient is on 4 mg of morphine for his chronic pain. Reports that he only sees patient on home visits as patient only travels by [facility] which makes it difficult for patient to visit office. Due to this limit in transportation, patient has not yet been evaluated by oncology to determine if lung mass represents primary versus metastatic disease. Agrees with attempt to control pain in ED and discharge if improved, otherwise admit to [facility] for intractable pain. If admitted, plan is to have oncology see patient in-house 06/15/18 16:22 Work up unremarkable. R lung mass re-demonstrated on XR. On reassessment, patient continues to report pain and states he does not feel well enough to go home. As discussed with Dr. Kang, will admit to Dr. Singer for intractable pain 06/15/18 16:[address] Singer who confirms that patient has primary lung adenocarcinoma. Recommends admission to Obs for intractable back pain. I placed consult to Dr. Chambers 06/15/18 16:47 *DC/Admit/Observation/Transfer Diagnosis at time of Disposition: Intractable pain - Discharge Dispostion Condition at time of disposition: Fair Decision to Admit order: Yes - Referrals - Patient Instructions - Post Discharge Activity
[2018-06-15] MEDS ORDERED: morphine SULFATE 4 MG/ML VIAL ONE ×2 (15:19→16:33)
[2018-06-15 15:20] LABS: BASO % 0.4 % (0-2.0); EOS % 1.3 % (0-4.5); HEMATOCRIT 42.9 % (35.4-49); HEMOGLOBIN 14.2 GM/dL (11.7-16.9); LYMPH % 8.9 % (8-40); MCH 30.4 pg (25.7-33.7); MCHC 33.2 g/dl (32.0-35.9); MEAN CELL VOLUME 91.5 fl (80-96); MEAN PLT VOLUME 8.6 fl (7.5-11.1); MONO % 9.1 % (3.8-10.2); NEUT % 80.3 % (42.8-82.8); PLATELET COUNT 591 K/MM3 (134-434); RBC 4.68 M/mm3 (4.00-5.60); RDW 14.4 % (11.9-15.9); WHITE BLOOD COUNT 13.8 K/mm3 (4.0-10.0)
--- NOTE | 2018-06-15 15:33 | EKG ---
Test Reason : Blood Pressure : / mmHG Vent. Rate : 059 BPM Atrial Rate : 059 BPM P-R Int : 154 ms QRS Dur : 086 ms QT Int : 400 ms P-R-T Axes : 064 070 082 degrees QTc Int : 396 ms SINUS BRADYCARDIA OTHERWISE NORMAL ECG WHEN COMPARED WITH ECG OF 11-JUN-2018 13:43, NO SIGNIFICANT CHANGE WAS FOUND Confirmed by JAQUAN DEXTER MD ([id number]) on 06/15/2018 3:32:59 PM Referred By: Confirmed By:JAQUAN DEXTER MD
[2018-06-15 15:56] LABS: ALK PHOS 175 U/L (45-117); ANION GAP 8 MMOL/L (8-16); BILIRUBIN,TOTAL 0.5 mg/dL (0.2-1); BLOOD UREA NITROGEN 6 mg/dL (7-18); CALCIUM 8.5 mg/dL (8.5-10.1); CHLORIDE 104 mmol/L (98-107); CO2 26 mmol/L (21-32); CREATININE 0.6 mg/dL (0.55-1.3); GLUCOSE,RANDOM 93 mg/dL (74-106); POTASSIUM 4.9 mmol/L (3.5-5.1); SGOT/AST 25 U/L (15-37); SGPT/ALT 14 U/L (13-61); SODIUM 138 mmol/L (136-145); TOT PROT 7.3 g/dl (6.4-8.2)
[2018-06-15] MEDS ORDERED: ONDANSETRON 4 MG/2 ML VIAL IVPUSH PRN (16:42)
[2018-06-15] MEDS ORDERED: ACETAMINOPHEN 325 MG TABLET (FP) PO PRN (16:42)
--- NOTE | 2018-06-15 16:54 | HP ---
Admitting History and Physical - Primary Care Physician PCP: Juan Manuel Kang - Admission Chief Complaint: I'm hurting everywhere History of Present Illness: Mr Valenzuela is a 63 year old male with chronic pain who comes in with exacerbation of his chronic pain. He normally takes morphine 4mg q4h prn however he says that he has ran out and has not taken it for a long time. Last night the pain in his back, chest, and abdomen intensified. He says it is a / 10. He was hoping that it would resolve but it has not. Because of this he is coming into the hospital. He denies fevers, chills, lightheadedness, dizziness, passing out, chest pressure, shortness of breath, nausea, vomiting, diarrhea, or swelling. He has chronic constipation and this is unchanged. 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)) Gastrointestinal: Yes: Other (Hepatic hemangiomas) Renal/: Yes: Other (Bladder dysfunction) Heme/Onc: Yes: Cancer (adenocarcinoma of the lung), Other (Neurogenic bladder w / h/o UTI) Infectious Disease: Yes: Other (multiple UTIs Pseudomonas) Musculoskeletal: Yes: Paraplegia, Other (Chronic pain) - Past Surgical History Past Surgical History: Yes: Splenectomy - Smoking History Smoking history: Never smoked Have you smoked in the past 12 months: No Aproximately how many cigarettes per day: 3 If you are a former smoker, when did you quit?: 1985 - Alcohol/Substance Use Hx Alcohol Use: Yes (social) History of Substance Use: reports: Marijuana - Social History Usual Living Arrangement: Yes: Alone 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 ([employer] (24hr)) History of Recent Travel: No Home Medications - Allergies Allergies/Adverse Reactions: Allergies Allergy/AdvReac Type Severity Reaction Status Date / Time No Known Allergies Allergy Verified 06/15/18 14:10 - Home Medications Home Medications: Ambulatory Orders NK [No Known Home Medication] 06/15/18 Family Disease History - Family Disease History Family Disease History: Heart Disease: Father Review of Systems Findings/Remarks: Full review of systems obtained, as per HPI and otherwise negative. Physical Examination Vital Signs: Vital Signs Temperature 36.6 C 06/15/18 14:50 Pulse Rate 68 06/15/18 14:50 Respiratory Rate 18 10/08/18 14:50 Blood Pressure 123/62 06/15/18 14:50 O2 Sat by Pulse Oximetry (%) 97 06/15/18 14:50 Constitutional: Yes: Well Nourished, No Distress, Calm Eyes: Yes: Conjunctiva Clear, EOM Intact, PERRL HENT: Yes: Atraumatic, Normocephalic Cardiovascular: Yes: Regular Rate and Rhythm. No: Gallop, Murmur, Rub Respiratory: Yes: Regular, CTA Bilaterally. No: Rales, Rhonchi, Wheezes Gastrointestinal: Yes: Normal Bowel Sounds, Soft. No: Distention, Tenderness Extremities: Yes: WNL Edema: No Labs: CBC, BMP 06/15/18 15:15 06/15/18 15:15 Imaging - Results Chest X-ray: Report Reviewed, Image Reviewed Problem List - Problems (1) Intractable pain Assessment/Plan: -patient with acute exacerbation of pain secondary to not having morphine -received IV morphine in the ED -will place back on morphing 4mg q4h prn -pain management consult, may need adjustment of pain regimen Code(s): R52 - PAIN, UNSPECIFIED (2) Adenocarcinoma of right lung Assessment/Plan: -biopsied and diagnosed last admission -patient with difficulty going to outpatient office visits -request oncology to see while here and discuss options Code(s): C34.91 - MALIGNANT NEOPLASM OF UNSP PART OF RIGHT BRONCHUS OR LUNG (3) Anxiety Assessment/Plan: -continue valium 10mg tid prn Code(s): F41.9 - ANXIETY DISORDER, UNSPECIFIED (4) Leukocytosis Assessment/Plan: -monitor Code(s): D72.829 - ELEVATED WHITE BLOOD CELL COUNT, UNSPECIFIED
[2018-06-15 19:34] LABS: PLATELET ESTIMATE INCREASED
[2018-06-15] MEDS: DOCUSATE SODIUM 100 MG CAPSULE (FP) PO SCH (23:37)
[2018-06-15] MEDS: SENNOSIDES 8.6MG TABLET (FP) PO SCH (23:37)
[2018-06-15] MEDS: diazePAM 5 MG TABLET PO PRN (23:39)
[2018-06-15] MEDS: morphine SULFATE 10 MG/5 ML UNIT-DOSE CUP PO PRN (23:40)
[2018-06-16 01:37] VITALS: BMI 20.7
[2018-06-16] MEDS: DOCUSATE SODIUM 100 MG CAPSULE (FP) PO SCH ×3 (06:57→22:25)
[2018-06-16] MEDS: morphine SULFATE 10 MG/5 ML UNIT-DOSE CUP PO PRN ×4 (07:03→22:25)
[2018-06-16 08:27] LABS: BASO % 0.6 % (0-2.0); EOS % 3.4 % (0-4.5); HEMATOCRIT 40.6 % (35.4-49); HEMOGLOBIN 13.1 GM/dL (11.7-16.9); LYMPH % 19.5 % (8-40); MCH 29.8 pg (25.7-33.7); MCHC 32.2 g/dl (32.0-35.9); MEAN CELL VOLUME 92.6 fl (80-96); MEAN PLT VOLUME 9.4 fl (7.5-11.1); MONO % 7.3 % (3.8-10.2); NEUT % 69.2 % (42.8-82.8); PLATELET COUNT 488 K/MM3 (134-434); RBC 4.39 M/mm3 (4.00-5.60); RDW 14.6 % (11.9-15.9); WHITE BLOOD COUNT 12.1 K/mm3 (4.0-10.0)
[2018-06-16 08:59] LABS: ANION GAP 4 MMOL/L (8-16); BLOOD UREA NITROGEN 12 mg/dL (7-18); CALCIUM 8.7 mg/dL (8.5-10.1); CHLORIDE 106 mmol/L (98-107); CO2 26 mmol/L (21-32); CREATININE 0.6 mg/dL (0.55-1.3); GLUCOSE,RANDOM 80 mg/dL (74-106); PHOSPHOROUS 2.5 mg/dL (2.5-4.9); POTASSIUM 4.3 mmol/L (3.5-5.1); SODIUM 136 mmol/L (136-145)
[2018-06-16] MEDS ORDERED: PT OWN MED DRAWER 7, Y5N ONE ×2 (09:58→17:56)
[2018-06-16] MEDS: POLYETHYLENE GLYCOL 3350 119 GM BTL PO SCH (10:16)
--- NOTE | 2018-06-16 11:42 | CONSULT ---
Consultation: REQUESTING PROVIDER: CONSULT REQUEST: We have been asked to medically evaluate this patient for adenocarcinoma of lung. HISTORY OF PRESENT ILLNESS: 63 y/o man with a past medical history of Spinal Fracture (w/ T2-T4 cord transection), Neurogenic Bladder (w/ recurrent UTI), Paroxysmal Afib (not on AC ) and recent diagnosis of adenocarcinoma of lung presents with worsening pain. He states that pain is located mainly in spine and radiates to stomach. He take morphine at home but has not resolved with home dose. He was recently admitted for recurrent UTI and was found to have lung mass that was biopsied and found to have adeno of lung. Denies KIRAN, SOB, nausea, vomiting, fever or chills. 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 spinal fracture)) Gastrointestinal: Yes: Other (Hepatic hemangiomas) Renal/: Yes: Other (Bladder dysfunction) Heme/Onc: Yes: Cancer (adenocarcinoma of the lung), Other (Neurogenic bladder w / h/o UTI) Infectious Disease: Yes: Other (multiple UTIs Pseudomonas) Musculoskeletal: Yes: Paraplegia, Other (Chronic pain) - Past Surgical History Past Surgical History: Yes: Splenectomy - Smoking History Smoking history: Never smoked Have you smoked in the past 12 months: No Aproximately how many cigarettes per day: 3 If you are a former smoker, when did you quit?: 1985 - Alcohol/Substance Use Hx Alcohol Use: Yes (social) History of Substance Use: reports: Marijuana - Social History Usual Living Arrangement: Yes: Alone 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 ([facility] ([facility]hr)) History of Recent Travel: No REVIEW OF SYSTEMS: CONSTITUTIONAL: Absent: fever, chills, diaphoresis, generalized weakness, malaise, loss of appetite, weight change HEENT: Absent: rhinorrhea, nasal congestion, throat pain, throat swelling, difficulty swallowing, mouth swelling, ear pain, eye pain, visual changes CARDIOVASCULAR: Absent: chest pain, syncope, palpitations, irregular heart rate, lightheadedness , peripheral edema RESPIRATORY: Absent: cough, shortness of breath, dyspnea with exertion, orthopnea, wheezing, stridor, hemoptysis GASTROINTESTINAL: Absent: abdominal pain, abdominal distension, nausea, vomiting, diarrhea, constipation, melena, hematochezia GENITOURINARY: Absent: dysuria, frequency, urgency, hesitancy, hematuria, flank pain, genital pain MUSCULOSKELETAL: back pain, Absent: myalgia, arthralgia, joint swelling, neck pain SKIN: Absent: rash, itching, pallor HEMATOLOGIC/IMMUNOLOGIC: Absent: easy bleeding, easy bruising, lymphadenopathy, frequent infections ENDOCRINE: Absent: unexplained weight gain, unexplained weight loss, heat intolerance, cold intolerance NEUROLOGIC: Absent: headache, focal weakness or paresthesias, dizziness, unsteady gait, seizure, mental status changes, bladder or bowel incontinence PSYCHIATRIC: Absent: anxiety, depression, suicidal or homicidal ideation, hallucinations. PHYSICAL EXAMINATION Vital Signs - 24 hr 06/15/18 06/15/18 06/15/18 14:50 22:03 22:50 Temperature 97.9 F 98.1 F 97.5 F L Pulse Rate 68 92 H Pulse Rate [ 68 Apical] Respiratory 18 18 20 Rate Blood Pressure 123/62 165/71 Blood Pressure 129/72 [Arm] O2 Sat by Pulse 97 98 Oximetry (%) 06/16/18 06/16/18 00:43 05:20 Temperature 98.3 F Pulse Rate 64 Pulse Rate [ Apical] Respiratory 20 Rate Blood Pressure 133/72 Blood Pressure [Arm] O2 Sat by Pulse 98 Oximetry (%) GENERAL: AAOx3, NAD HEAD: NCAT EYES: PERRLA, EOMI, sclera anicteric, conjunctiva clear. EARS, NOSE, THROAT: Moist mucous membranes. NECK: Supple without lymphadenopathy, JVD, or masses. LUNGS: CTAB. No wheezes, and no crackles. No accessory muscle use. HEART: RRR, normal S1 and S2 without murmur, rub or gallop. ABDOMEN: Soft, NTND, NABS, no guarding, no rebound, no masses. No hepatomegaly or splenomegaly. MUSCULOSKELETAL: Decreased ROM LE. Left ankle bony deformity. contracture of right hand. UPPER EXTREMITIES: contracture of right hand. no edema. LOWER EXTREMITIES: 2+ pulses, warm, well-perfused. No peripheral edema. NEUROLOGICAL: Cranial nerves II-XII intact. Normal speech. Flacid paralysis to bilateral LE. 5/5 upper ext. strength bilaterallly. sensation loss from level of T4 and below. PSYCHIATRIC: Appropriate mood and affect. SKIN: Warm, dry, normal turgor, no rashes or lesions noted. Laboratory Results - last 24 hr 06/15/18 06/15/18 06/16/18 15:15 15:15 07:10 WBC 13.8 H 12.1 H RBC 4.68 4.39 Hgb 14.2 13.1 Hct 42.9 40.6 MCV 91.5 92.6 MCH 30.4 29.8 MCHC 33.2 32.2 RDW 14.4 14.6 Plt Count 591 H 488 H MPV 8.6 D 9.4 Absolute Neuts (auto) 11.0 H 8.4 H Neutrophils % 80.3 69.2 Neutrophils % (Manual) 78.0 Band Neutrophils % 0.0 Lymphocytes % 8.9 D 19.5 D Lymphocytes % (Manual) 10.0 D Monocytes % 9.1 7.3 Monocytes % (Manual) 5 Eosinophils % 1.3 3.4 D Eosinophils % (Manual) 1.0 Basophils % 0.4 0.6 Basophils % (Manual) 0.0 Myelocytes % (Man) 4 H D Nucleated RBC % 0 0 Metamyelocytes 1 D Platelet Estimate Increased Platelet Comment Large platelets Sodium 138 Potassium 4.9 Chloride 104 Carbon Dioxide 26 Anion Gap 8 BUN 6 L Creatinine 0.6 Creat Clearance w eGFR > 60 Random Glucose 93 Calcium 8.5 Phosphorus Magnesium Total Bilirubin 0.5 AST 25 ALT 14 Alkaline Phosphatase 175 H Creatine Kinase 95 Troponin I < 0.02 Total Protein 7.3 Albumin 3.0 L 06/16/18 07:10 WBC RBC Hgb Hct MCV MCH MCHC RDW Plt Count MPV Absolute Neuts (auto) Neutrophils % Neutrophils % (Manual) Band Neutrophils % Lymphocytes % Lymphocytes % (Manual) Monocytes % Monocytes % (Manual) Eosinophils % Eosinophils % (Manual) Basophils % Basophils % (Manual) Myelocytes % (Man) Nucleated RBC % Metamyelocytes Platelet Estimate Platelet Comment Sodium 136 Potassium 4.3 Chloride 106 Carbon Dioxide 26 Anion Gap 4 L BUN 12 Creatinine 0.6 Creat Clearance w eGFR > 60 Random Glucose 80 Calcium 8.7 Phosphorus 2.5 Magnesium 2.0 Total Bilirubin AST ALT Alkaline Phosphatase Creatine Kinase Troponin I Total Protein Albumin Active Medications Generic Name Dose Route Start Last Admin Trade Name Freq PRN Reason Stop Dose Admin Acetaminophen 650 mg 06/15/18 16:42 Tylenol - PO Q4H PRN PAIN LEVEL 1-5 Diazepam 10 mg 06/15/18 16:45 06/15/18 23:39 Valium - PO 10 mg TID PRN Administration ANXIETY Docusate Sodium 100 mg 06/15/18 22:00 06/16/18 06:57 Colace - PO Not Given TID ZAIRA Morphine Sulfate 4 mg 06/15/18 16:45 06/16/18 07:03 Morphine 10 Mg/5 Ml Liquid PO 4 mg Q4H PRN Administration PAIN LEVEL 6-10 Ondansetron HCl 4 mg 06/15/18 16:42 Zofran Injection IVPUSH Q6H PRN NAUSEA Polyethylene Glycol 17 gm 06/16/18 10:00 06/16/18 10:16 Miralax (For Daily Use) - PO 17 gm DAILY ZAIRA Administration Senna 2 tab 06/15/18 22:00 06/15/18 23:37 Senna - PO Not Given HS ZAIRA ASSESSMENT/PLAN: Dispo: We will continue to follow the patient. Thank you for this consultative opportunity. Problem List - Problems (1) Adenocarcinoma of right lung Assessment/Plan: Given his functional status not candidate for Chemo. * multiple areas of both lungs makes surgery or stereotactic RT not options. * CT of abdomen did not show definitive mets. * Will send pathology for PDL-1 and mutation analysis to see if he is candidate for immunotherapy. (2) Intractable pain Assessment/Plan: pain control with IV narcotics. * possible referall to pain management. * Diazepam (Valium -) 10 mg PO TID * Morphine Sulfate (Morphine 10 Mg/5 Ml Liquid) 4 mg PO Q4H * Polyethylene Glycol (Miralax (For Daily Use) -) 17 gm PO DAILY * Senna (Senna -) 2 tab PO HS ZAIRA (3) Paraplegia Visit type - Emergency Visit Emergency Visit: Yes ED Registration Date: 06/15/18 Care time: The patient presented to the Emergency Department on the above date and was hospitalized for further evaluation of their emergent condition. - New Patient This patient is new to me today: Yes Date on this admission: 06/16/18 - Critical Care Critical Care patient: No
--- NOTE | 2018-06-16 14:18 | PN ---
Progress Note, Physician Chief Complaint: Mr Valenzuela says he is still having pain that is diffuse. Denies chest pressure, sob, n/v. - Current Medication List Current Medications: Active Medications Acetaminophen (Tylenol -) 650 mg PO Q4H PRN PRN Reason: PAIN LEVEL 1-5 Diazepam (Valium -) 10 mg PO TID PRN PRN Reason: ANXIETY Last Admin: 06/15/18 23:39 Dose: 10 mg Docusate Sodium (Colace -) 100 mg PO TID [facility] Last Admin: 06/16/18 13:26 Dose: Not Given Morphine Sulfate (Morphine 10 Mg/5 Ml Liquid) 4 mg PO Q4H PRN PRN Reason: PAIN LEVEL 6-10 Last Admin: 06/16/18 07:03 Dose: 4 mg Ondansetron HCl (Zofran Injection) 4 mg IVPUSH Q6H PRN PRN Reason: NAUSEA Polyethylene Glycol (Miralax (For Daily Use) -) 17 gm PO DAILY [facility] Last Admin: 06/16/18 10:16 Dose: 17 gm Senna (Senna -) 2 tab PO HS [facility] Last Admin: 06/15/18 23:37 Dose: Not Given - Objective Vital Signs: Vital Signs Temperature 36.2 C L 06/16/18 08:05 Pulse Rate 61 06/16/18 08:05 Respiratory Rate 18 06/16/18 08:05 Blood Pressure 126/69 06/16/18 08:05 O2 Sat by Pulse Oximetry (%) 98 06/16/18 00:43 Constitutional: Yes: Well Nourished, No Distress, Calm Cardiovascular: Yes: Regular Rate and Rhythm. No: Gallop, Murmur, Rub Respiratory: Yes: Regular, CTA Bilaterally. No: Rales, Rhonchi, Wheezes Gastrointestinal: Yes: Normal Bowel Sounds, Soft. No: Distention, Tenderness Extremities: Yes: WNL Edema: No Labs: CBC, BMP 06/16/18 07:10 06/16/18 07:10 Problem List - Problems (1) Intractable pain Code(s): R52 - PAIN, UNSPECIFIED (2) Adenocarcinoma of right lung Code(s): C34.91 - MALIGNANT NEOPLASM OF UNSP PART OF RIGHT BRONCHUS OR LUNG (3) Anxiety Code(s): F41.9 - ANXIETY DISORDER, UNSPECIFIED (4) Leukocytosis Code(s): D72.829 - ELEVATED WHITE BLOOD CELL COUNT, UNSPECIFIED Assessment/Plan (1) Intractable pain Assessment/Plan: -pain better controlled on home morphine dose but still present -pain management consulted, awaiting recommendations -will need outpatient follow up for improved control Code(s): R52 - PAIN, UNSPECIFIED (2) Adenocarcinoma of right lung Assessment/Plan: -biopsied and diagnosed last admission -patient with difficulty going to outpatient office visits -oncology recommendations pending Code(s): C34.91 - MALIGNANT NEOPLASM OF UNSP PART OF RIGHT BRONCHUS OR LUNG (3) Anxiety Assessment/Plan: -continue valium 10mg tid prn Code(s): F41.9 - ANXIETY DISORDER, UNSPECIFIED (4) Leukocytosis Assessment/Plan: -monitor Code(s): D72.829 - ELEVATED WHITE BLOOD CELL COUNT, UNSPECIFIED
[2018-06-16] MEDS: diazePAM 5 MG TABLET PO PRN (15:29)
--- NOTE | 2018-06-16 20:03 | PN ---
Teaching Attending Note Name of Resident: Yahir Stacy ATTENDING PHYSICIAN STATEMENT I saw and evaluated the patient. I reviewed the resident's note and discussed the case with the resident. I agree with the resident's findings and plan as documented. SUBJECTIVE:Patient seen and examined Discussed with HCP Will ask path to do mutation analysis on tumor. Unfortunately multiple masses bilateral lungs. OBJECTIVE: ASSESSMENT AND PLAN:
--- NOTE | 2018-06-16 21:28 | CONSULT ---
Consult Consult Specialty:: back pain Referred by:: cy Reason for Consultation:: back pain - History of Present Illness Chief Complaint: back pain History of Present Illness: 63 y/o man with a past medical history of Spinal Fracture (w/ T2-T4 cord transection), Neurogenic Bladder (w/ recurrent UTI), Paroxysmal Afib (not on AC ) and recent diagnosis of adenocarcinoma of lung presents with worsening pain. He states that pain is located mainly in spine and radiates to stomach. He take morphine at home but has not resolved with home dose. He was recently admitted for recurrent UTI and was found to have lung mass that was biopsied and found to have adeno of lung. Denies KIRAN, SOB, nausea, vomiting, fever or chills. 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)) Gastrointestinal: Yes: Other (Hepatic hemangiomas) Renal/: Yes: Other (Bladder dysfunction) Infectious Disease: Yes: Other (multiple UTIs Pseudomonas) Musculoskeletal: Yes: Paraplegia, Other (Chronic pain) - Past Surgical History Past Surgical History: Yes: Splenectomy - Alcohol/Substance Use Hx Alcohol Use: Yes (social) History of Substance Use: reports: Marijuana - Smoking History Smoking history: Former smoker Have you smoked in the past 12 months: No Aproximately how many cigarettes per day: 3 If you are a former smoker, when did you quit?: 1985 - Social History Usual Living Arrangement: With Significant Other 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 ([facility] ([facility]hr)) History of Recent Travel: No Home Medications - Allergies Allergies/Adverse Reactions: Allergies Allergy/AdvReac Type Severity Reaction Status Date / Time No Known Allergies Allergy Verified 06/15/18 14:10 - Home Medications Home Medications: Ambulatory Orders NK [No Known Home Medication] 06/15/18 Family Disease History - Family Disease History Family Disease History: Heart Disease: Father Physical Exam Vital Signs: Vital Signs Temperature 98.2 F 06/16/18 17:04 Pulse Rate 67 06/16/18 17:04 Respiratory Rate 20 06/16/18 17:04 Blood Pressure 125/61 06/16/18 17:04 O2 Sat by Pulse Oximetry (%) 98 06/16/18 00:43 Labs: CBC, BMP 06/16/18 07:10 06/16/18 07:10 Assessment/Plan severe back pain secondary to degnerative changes vs possible l1 lesion 1. Consider l1 biopsy/treatment 2. would recommend increasing PO morphine to 10mg
[2018-06-16] MEDS: SENNOSIDES 8.6MG TABLET (FP) PO SCH (22:31)
[2018-06-17] MEDS: diazePAM 5 MG TABLET PO PRN ×2 (00:45→14:06)
[2018-06-17] MEDS: DOCUSATE SODIUM 100 MG CAPSULE (FP) PO SCH ×2 (05:43→13:56)
[2018-06-17] MEDS: morphine SULFATE 10 MG/5 ML UNIT-DOSE CUP PO PRN ×2 (09:21→13:55)
[2018-06-17] MEDS: POLYETHYLENE GLYCOL 3350 119 GM BTL PO SCH (09:22)
--- NOTE | 2018-06-17 11:18 | PN ---
Physical Exam: SUBJECTIVE: Patient seen and examined at bedside. No overnight events. No new complaints. Pain well controlled. Denies CP,KIRAN, SOB,palpitations, nausea or vomiting. OBJECTIVE: Vital Signs Period Temp Pulse Resp BP Sys/Roche Pulse Ox Last 24 Hr 65 F-98.2 F 65-76 18-20 117-137/61-67 98 GENERAL: AAOx3, NAD HEAD: NCAT EYES: PERRLA, EOMI, sclera anicteric, conjunctiva clear. EARS, NOSE, THROAT: Moist mucous membranes. NECK: Supple without lymphadenopathy, JVD, or masses. LUNGS: CTAB. No wheezes, and no crackles. No accessory muscle use. HEART: RRR, normal S1 and S2 without murmur, rub or gallop. ABDOMEN: Soft, NTND, NABS, no guarding, no rebound, no masses. No hepatomegaly or splenomegaly. MUSCULOSKELETAL: Decreased ROM LE. Left ankle bony deformity. contracture of right hand. UPPER EXTREMITIES: contracture of right hand. no edema. LOWER EXTREMITIES: 2+ pulses, warm, well-perfused. No peripheral edema. NEUROLOGICAL: Cranial nerves II-XII intact. Normal speech. Flacid paralysis to bilateral LE. 5/5 upper ext. strength bilaterallly. sensation loss from level of T4 and below. PSYCHIATRIC: Appropriate mood and affect. Active Medications Generic Name Dose Route Start Last Admin Trade Name Freq PRN Reason Stop Dose Admin Acetaminophen 650 mg 06/15/18 16:42 Tylenol - PO Q4H PRN PAIN LEVEL 1-5 Diazepam 10 mg 06/15/18 16:45 06/17/18 00:45 Valium - PO 10 mg TID PRN Administration ANXIETY Docusate Sodium 100 mg 06/15/18 22:00 06/17/18 05:43 Colace - PO 100 mg TID ZAIRA Administration Morphine Sulfate 4 mg 06/15/18 16:45 06/17/18 09:21 Morphine 10 Mg/5 Ml Liquid PO 4 mg Q4H PRN Administration PAIN LEVEL 6-10 Ondansetron HCl 4 mg 06/15/18 16:42 Zofran Injection IVPUSH Q6H PRN NAUSEA Polyethylene Glycol 17 gm 06/16/18 10:00 06/17/18 09:22 Miralax (For Daily Use) - PO 17 gm DAILY ZAIRA Administration Senna 2 tab 06/15/18 22:00 06/16/18 22:31 Senna - PO Not Given HS ZAIRA ASSESSMENT/PLAN: Problem List - Problems (1) Adenocarcinoma of right lung Assessment/Plan: Given his functional status not candidate for Chemo. * PDL-1 and mutation analysis pending to see if he is candidate for immunotherapy. * multiple areas of both lungs makes surgery or stereotactic RT not options. * CT of abdomen did not show definitive mets. (2) Intractable pain Assessment/Plan: pain control with IV narcotics. * possible referall to pain management. * Diazepam (Valium -) 10 mg PO TID * Morphine Sulfate (Morphine 10 Mg/5 Ml Liquid) 4 mg PO Q4H * Polyethylene Glycol (Miralax (For Daily Use) -) 17 gm PO DAILY * Senna (Senna -) 2 tab PO HS ZAIRA (3) Paraplegia Visit type - Emergency Visit Emergency Visit: Yes ED Registration Date: 06/15/18 Care time: The patient presented to the Emergency Department on the above date and was hospitalized for further evaluation of their emergent condition. - New Patient This patient is new to me today: No - Critical Care Critical Care patient: No
--- NOTE | 2018-06-17 13:28 | DS ---
Physical Examination Vital Signs: Vital Signs Temperature 36.4 C L 06/17/18 10:00 Pulse Rate 65 06/17/18 10:00 Respiratory Rate 20 06/17/18 10:00 Blood Pressure 129/64 06/17/18 10:00 O2 Sat by Pulse Oximetry (%) 98 06/16/18 21:00 Constitutional: Yes: Well Nourished, No Distress, Calm Cardiovascular: Yes: Regular Rate and Rhythm. No: Gallop, Murmur, Rub Respiratory: Yes: Regular, CTA Bilaterally. No: Rales, Rhonchi, Wheezes Gastrointestinal: Yes: Normal Bowel Sounds, Soft. No: Distention, Tenderness Extremities: Yes: WNL Edema: No Labs: CBC, BMP 06/16/18 07:10 06/16/18 07:10 Discharge Summary Reason For Visit: INTRACTABLE PAIN Current Active Problems Adenocarcinoma of right lung (Acute) Intractable pain (Acute) Hospital Course: (1) Intractable pain Code(s): R52 - PAIN, UNSPECIFIED (2) Adenocarcinoma of right lung Code(s): C34.91 - MALIGNANT NEOPLASM OF UNSP PART OF RIGHT BRONCHUS OR LUNG (3) Anxiety Code(s): F41.9 - ANXIETY DISORDER, UNSPECIFIED (4) Leukocytosis Code(s): D72.829 - ELEVATED WHITE BLOOD CELL COUNT, UNSPECIFIED Mr Valenzuela is a 63 year old man who comes in with intractable pain. He was admitted under observation. He was seen by pain management and recommended to have his morphine increased to 10mg q4h prn. He was seen by oncology and awaiting special testing on his biopsy for possibility of immunotherapy. Currently he is stable and can be discharged today. He was discharged on increased morphine dose. 32 minutes spent in preparation of this discharge Condition: Stable - Instructions Diet, Activity, Other Instructions: resume previous diet and activity Referrals: Howard Aguilar MD [Staff Physician] - Juan Manuel Kang MD [Staff Physician] - Zheng Chambers MD [Staff Physician] - Disposition: VNS/HOME HEALTH CARE - Home Medications Comprehensive Discharge Medication List: Ambulatory Orders Diazepam [Valium] 10 mg PO TID PRN tablet MDD 30mg 06/17/18 Docusate Sodium [Colace -] 100 mg PO TID #90 capsule 06/17/18 Morphine 10 mg/5 ml Liquid [Morphine 10 mg/5 mL Liquid -] 10 mg PO Q4H #150 ml MDD 60mg 06/17/18 Polyethylene Glycol 3350 [Miralax 119 gm Btl -] 17 gm PO DAILY #1 bottle Sennosides [Senna -] 2 tab PO HS #60 tablet 06/17/18
[2018-06-17 16:02] VITALS: BP 136/64; PULSE 92; TEMP 98.5
== END 2018-06-17 18:14 | disposition home health service (06) ==
LOC: JER 13:51 → JERBED 16:24 → J8W 23:25
PROVIDERS: ADMIT Internal Medicine; ATTEND Internal Medicine
PROC: 3E033NZ Introduction of Analgesics, Hypnotics, Sedatives into Peripheral Vein, Percutaneous Approach (ICD-10-PCS; principal; 2018-06-15)
PROC: 3E033GC Introduction of Other Therapeutic Substance into Peripheral Vein, Percutaneous Approach (ICD-10-PCS; 2018-06-15)
DX: G89.29 Other chronic pain (principal); C34.91 Malignant neoplasm of unspecified part of right bronchus or lung; F41.9 Anxiety disorder, unspecified; D72.829 Elevated white blood cell count, unspecified; G82.20 Paraplegia, unspecified; I48.0 Paroxysmal atrial fibrillation
CPT/HCPCS: 36415; 71045-TC-FY; 72070-TC-FY; 72100-TC-FY; 80048; 80053; 82550; 83735; 84100; 84484; 85025; 93005; 93010; 96374; 96375; 96376; 99281-25; G0378

== ENCOUNTER 2018-08-27 15:22 | Inpatient (IN) | payer OTHER, BC ==
--- NOTE | 2018-08-27 15:49 | PDOC ---
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 He is not able to walk or feel anything from the chest down. He denies recent fevers, chills, or infections, chest pain, SOB, difficulty breathing, back pain, leg pain, urinary difficulty. PCP: Daniel Kang Allergies: NKA, NKDA Social Hx: Does not currently smoke, drink, or use illicit drugs. Past History - Past Medical History Allergies/Adverse Reactions: Allergies Allergy/AdvReac Type Severity Reaction Status Date / Time No Known Allergies Allergy Verified 08/27/18 16:31 Home Medications: Ambulatory Orders Diazepam [Valium] 10 mg PO TID PRN tablet MDD 30mg 06/17/18 Morphine 10 mg/5 ml Liquid [Morphine 10 mg/5 mL Liquid -] 10 mg PO Q4H #150 ml MDD 60mg 06/17/18 Anemia: No Asthma: No Cancer: No Cardiac Disorders: No CVA: No COPD: Yes CHF: No Dementia: No Diabetes: No GI Disorders: No Disorders: Yes (Recurrent UTI, 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) HTN: (Hypotension) Hypercholesterolemia: No Liver Disease: No Seizures: No Thyroid Disease: No - Surgical History Abdominal Surgery: No Appendectomy: No Cardiac Surgery: No Cholecystectomy: No Lung Surgery: No Neurologic Surgery: No Orthopedic Surgery: Yes (fracture right wrist s/p fusion) - Immunization History Td Vaccination: No Immunization Up to Date: No - Suicide/Smoking/Psychosocial Hx Smoking Status: No Smoking History: Former smoker Years of Tobacco Use: 0 Have you smoked in the past 12 months: No Number of Cigarettes Smoked Daily: 3 If you are a former smoker, when did you quit?: 1986 Cigars Per Day: 0 Hx Alcohol Use: Yes (social) Drug/Substance Use Hx: No Substance Use Type: None Hx Substance Use Treatment: No Review of Systems - Review of Systems Constitutional: No: Chills, Diaphoresis, Loss of Appetite HEENTM: No: Eye Pain, Blurred Vision, Tinnitus Respiratory: No: Cough, Shortness of Breath, Wheezing Cardiac (ROS): No: Chest Pain, Edema, Irregular Heart Rate, Lightheadedness, Syncope ABD/GI: Yes: Diarrhea (black tinged), Nausea, Poor Appetite, Poor Fluid Intake, Abdominal cramping. No: Vomiting : No: Burning, Dysuria Musculoskeletal: No: Back Pain, Joint Pain, Neck Pain Integumentary: No: Bruising, Change in Color, Pallor Neurological: No: Headache, Numbness, Tingling Psychiatric: No: Anxiety, Depression Endocrine: No: Excessive Sweating, Unexplained Weight Loss Hematologic/Lymphatic: No: Anemia, Easy Bleeding *Physical Exam - Physical Exam General Appearance: Yes: Nourished, Apparent Distress HEENT: positive: EOMI, FRANCIE, Normal ENT Inspection, Normal Voice Neck: positive: Trachea midline, Supple. negative: Lymphadenopathy (R), Lymphadenopathy (L), Rigidity Respiratory/Chest: positive: Lungs Clear, Normal Breath Sounds. negative: Respiratory Distress, Accessory Muscle Use Cardiovascular: positive: Regular Rhythm, Regular Rate, S1, S2 Vascular Pulses: Dorsalis-Pedis (R): 2+, Doralis-Pedis (L): 2+ Gastrointestinal/Abdominal: positive: Normal Bowel Sounds, Tender (LLQ), Soft, Tenderness. negative: Guarding, Rebound, Spleenomegaly Rectal Exam: positive: deferred Lymphatic: negative: Adenopathy Musculoskeletal: positive: Normal Inspection Extremity: positive: Normal Capillary Refill, Normal Inspection. 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 DDx IBNLT: Diverticulitis, UTI/pylo, appendicitis, cholecystitis, pancreatitis, gastroenteritis Plan: Cbc, Cmp, Lipase, abdominal CT w contrast, acetaminophen, ua/uc, re- assess. WBC elevated to 15. Otherwise, Labs unremarkable and WNL. Lipase normal. Patient will be signed out to the night team. *DC/Admit/Observation/Transfer Diagnosis at time of Disposition: Abdominal pain - Referrals Referrals: Juan Manuel Kang MD [Primary Care Provider] - - Patient Instructions - Post Discharge Activity
[2018-08-27] MEDS ORDERED: SODIUM CHLORIDE 0.9% 500 ML INFUS.BAG IV ONE (15:57)
[2018-08-27] MEDS ORDERED: ACETAMINOPHEN 1000 MG/100 ML VIAL (NON FORMULARY) IVPB ONE (15:57)
--- NOTE | 2018-08-27 16:01 | PDOC ---
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 wo fever, cp, sob, general: NAD card: rrr, no mrg/ abd: +ttp palpitatoins, no rebound/guarding, condom cath in place will obtain ua to r/o uti (pt is colonized - no systemci complaints - higher threshold for abx) will obtain CT abd to r/o diverticulitis will sign out to evening team to fu with results and reassess/dispo the pt - Physicial Exam PE: 09/04/18 07:33 see above - Medical Decision Making 09/04/18 07:33 see abneno
[2018-08-27 16:37] VITALS: BMI 25.4
[2018-08-27 17:16] LABS: BASO % 0.8 % (0-2.0); EOS % 0.3 % (0-4.5); HEMATOCRIT 43.7 % (35.4-49); HEMOGLOBIN 15.2 GM/dL (11.7-16.9); LYMPH % 6.7 % (8-40); MCH 31.2 pg (25.7-33.7); MCHC 34.7 g/dl (32.0-35.9); MEAN CELL VOLUME 89.8 fl (80-96); MEAN PLT VOLUME 8.2 fl (7.5-11.1); MONO % 10.3 % (3.8-10.2); NEUT % 81.9 % (42.8-82.8); PLATELET COUNT 455 K/MM3 (134-434); RBC 4.86 M/mm3 (4.00-5.60); RDW 15.6 % (11.9-15.9); WHITE BLOOD COUNT 15.6 K/mm3 (4.0-10.0)
[2018-08-27] MEDS ORDERED: morphine CARPU-JECT 4 MG/1 ML DISP.SYRIN IVPUSH ONE (17:41)
[2018-08-27 17:42] LABS: ALBUMIN 2.9 g/dl (3.4-5.0); ALK PHOS 137 U/L (45-117); ANION GAP 10 MMOL/L (8-16); BILIRUBIN,TOTAL 0.7 mg/dL (0.2-1); BLOOD UREA NITROGEN 5 mg/dL (7-18); CALCIUM 9.3 mg/dL (8.5-10.1); CHLORIDE 100 mmol/L (98-107); CO2 28 mmol/L (21-32); CREATININE 0.7 mg/dL (0.55-1.3); GLUCOSE,RANDOM 104 mg/dL (74-106); LIPASE 360 U/L (73-393); POTASSIUM 3.9 mmol/L (3.5-5.1); SGOT/AST 14 U/L (15-37); SGPT/ALT 16 U/L (13-61); SODIUM 137 mmol/L (136-145); TOT PROT 7.3 g/dl (6.4-8.2)
[2018-08-27] MEDS ORDERED: morphine SULFATE 4 MG/ML VIAL ONE (17:46)
[2018-08-27] MEDS ORDERED: ACETAMINOPHEN INJECTION 100 ML IVPB ONE (17:46)
[2018-08-27] MEDS ORDERED: MORPHINE SULFATE 2 MG/ML VIAL ONE (17:46)
[2018-08-27] MEDS ORDERED: SODIUM CHLORIDE 500 ML IV STA (20:09)
[2018-08-27 23:29] LABS: URINE APPEARANCE CLOUDY; URINE BILIRUBIN NEGATIVE (<2.0 mg/dL); URINE COLOR YELLOW; URINE GLUCOSE (UA) NEGATIVE (NEGATIVE); URINE KETONE NEGATIVE (NEGATIVE); URINE LEUK ESTERASE TRACE (NEGATIVE); URINE NITRITE NEGATIVE (NEGATIVE); URINE PROTEIN NEGATIVE (NEGATIVE); URINE UROBILINOGEN 4.0 E.U/dl mg/dL (0.2-1.0)
[2018-08-27 23:34] LABS: EPI CELLS MODERATE /HPF (FEW); URINE BACTERIA RARE /hpf (NONE SEEN); URINE MUCUS MANY
--- NOTE | 2018-08-28 00:19 | PDOC ---
*Physical Exam - Vital Signs Last Vital Signs Temp Pulse Resp BP Pulse Ox 97.9 F 62 22 H 122/70 95 08/27/18 16:10 08/27/18 21:10 08/27/18 21:10 08/27/18 21:10 08/27/18 21:10 ED Treatment Course - LABORATORY CBC & Chemistry Diagram: 09/10/18 05:00 09/08/18 06:15 - ADDITIONAL ORDERS Additional order review: Laboratory Results 08/27/18 08/27/18 08/27/18 23:13 17:00 16:35 Sodium 137 Potassium 3.9 Chloride 100 Carbon Dioxide 28 Anion Gap 10 BUN 5 L Creatinine 0.7 Creat Clearance w eGFR > 60 Random Glucose 104 Calcium 9.3 Total Bilirubin 0.7 AST 14 L ALT 16 Alkaline Phosphatase 137 H Total Protein 7.3 Albumin 2.9 L Lipase 360 Urine Color Yellow Urine Appearance Cloudy Urine pH 6.0 Ur Specific [place] 1.023 Urine Protein Negative Urine Glucose (UA) Negative Urine Ketones Negative Urine Blood Negative Urine Nitrite Negative Urine Bilirubin Negative Urine Urobilinogen 4.0 e.u/dl Ur Leukocyte Esterase Trace Urine WBC (Auto) 27 Urine RBC (Auto) 8 Ur Epithelial Cells Moderate Urine Bacteria Rare Urine Mucus Many Blood Type B POSITIVE Antibody Screen Negative 08/27/18 16:35 RBC 4.86 MCV 89.8 MCHC 34.7 RDW 15.6 MPV 8.2 D Neutrophils % 81.9 Lymphocytes % 6.7 L D Monocytes % 10.3 H Eosinophils % 0.3 D Basophils % 0.8 - Medications Given in the ED: ED Medications Discontinued Medications Generic Name Dose Route Start Last Admin Trade Name Sahra PRN Reason Stop Dose Admin Acetaminophen 1,000 mg 08/27/18 15:57 08/27/18 17:46 Ofirmev Injection - IVPB 08/27/18 15:58 1,000 mg ONCE ONE Administration Sodium Chloride 500 mls @ 500 mls/hr 08/27/18 20:09 08/27/18 20:16 Normal Saline - IV 08/27/18 21:08 500 mls/hr ASDIR STA Administration Morphine Sulfate 6 mg 08/27/18 17:41 08/27/18 17:46 Morphine Injection - IVPUSH 08/27/18 17:42 6 mg ONCE ONE Administration Sodium Chloride 1,000 ml 08/27/18 15:57 08/27/18 17:46 Normal Saline - IV 08/27/18 15:58 1,000 ml ONCE ONE Administration Medical Decision Making - Medical Decision Making 08/28/18 00:11 sign out from night team 63 yo male with [place] catheter, 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 DDX includes but is not limited to: Diverticulitis, Ileus, UTI/pylo, appendicitis, cholecystitis, pancreatitis, gastroenteritis WBC elevated to [address] shows ileus Admitted to hospitalist under Dr. Connell for ileus and elevated WBC *DC/Admit/Observation/Transfer Diagnosis at time of Disposition: Ileus Abdominal pain Qualifiers: Abdominal location: generalized Qualified Code(s): R10.84 - Generalized abdominal pain UTI (urinary tract infection) Qualifiers: Urinary tract infection type: acute cystitis Hematuria presence: without hematuria Qualified Code(s): N30.00 - Acute cystitis without hematuria - Discharge Dispostion Disposition: VNS/HOME HEALTH CARE Condition at time of disposition: Stable Decision to Admit order: Yes - Prescriptions - Referrals - Patient Instructions - Post Discharge Activity
--- NOTE | 2018-08-28 00:55 | PDOC ---
*Physical Exam - Vital Signs Last Vital Signs Temp Pulse Resp BP Pulse Ox 97.9 F 62 22 H 122/70 95 08/27/18 16:10 08/27/18 21:10 08/27/18 22:38 08/27/18 21:10 08/27/18 22:38 - Physical Exam Comments: 08/28/18 00:52 gen: aaox3, resting comfortably abd: soft, mild LLQ ttp, no rebound or gurading, nondistended ED Treatment Course - LABORATORY CBC & Chemistry Diagram: 08/27/18 16:35 08/27/18 16:35 - ADDITIONAL ORDERS Additional order review: Laboratory Results 08/27/18 08/27/18 08/27/18 23:13 17:00 16:35 Sodium 137 Potassium 3.9 Chloride 100 Carbon Dioxide 28 Anion Gap 10 BUN 5 L Creatinine 0.7 Creat Clearance w eGFR > 60 Random Glucose 104 Calcium 9.3 Total Bilirubin 0.7 AST 14 L ALT 16 Alkaline Phosphatase 137 H Total Protein 7.3 Albumin 2.9 L Lipase 360 Urine Color Yellow Urine Appearance Cloudy Urine pH 6.0 Ur Specific [place] 1.023 Urine Protein Negative Urine Glucose (UA) Negative Urine Ketones Negative Urine Blood Negative Urine Nitrite Negative Urine Bilirubin Negative Urine Urobilinogen 4.0 e.u/dl Ur Leukocyte Esterase Trace Urine WBC (Auto) 27 Urine RBC (Auto) 8 Ur Epithelial Cells Moderate Urine Bacteria Rare Urine Mucus Many Blood Type B POSITIVE Antibody Screen Negative 08/27/18 16:35 RBC 4.86 MCV 89.8 MCHC 34.7 RDW 15.6 MPV 8.2 D Neutrophils % 81.9 Lymphocytes % 6.7 L D Monocytes % 10.3 H Eosinophils % 0.3 D Basophils % 0.8 - Medications Given in the ED: ED Medications Discontinued Medications Generic Name Dose Route Start Last Admin Trade Name Freq PRN Reason Stop Dose Admin Acetaminophen 1,000 mg 08/27/18 15:57 08/27/18 17:46 Ofirmev Injection - IVPB 08/27/18 15:58 1,000 mg ONCE ONE Administration Sodium Chloride 500 mls @ 500 mls/hr 08/27/18 20:09 08/27/18 20:16 Normal Saline - IV 08/27/18 21:08 500 mls/hr ASDIR STA Administration Morphine Sulfate 6 mg 08/27/18 17:41 08/27/18 17:46 Morphine Injection - IVPUSH 08/27/18 17:42 6 mg ONCE ONE Administration Sodium Chloride 1,000 ml 08/27/18 15:57 08/27/18 17:46 Normal Saline - IV 08/27/18 15:58 1,000 ml ONCE ONE Administration Medical Decision Making - Medical Decision Making 08/28/18 00:52 a/p: 63yo male with hx of T4 spinal cord injury with paraplegia -ct shows ileus -abd is soft -has had episodes of abd pain today - had a bm today -no vomiting -chronic occlusion of the infrarenal aorta 08/28/18 01:08 pt states pain is similar to prior UTI sensation -pt wears a [place] catheter at home secondary to T4 injury -denies n/v -had a bm today -passing gas -elevated WBC -ileus on ct -will place on obs for ileus and uti case discussed with Dr. Connell *DC/Admit/Observation/Transfer Diagnosis at time of Disposition: Abdominal pain, Ileus, UTI (urinary tract infection) - Discharge Dispostion Condition at time of disposition: Fair Decision to Admit order: Yes - Referrals Referrals: Juan Manuel Kang MD [Primary Care Provider] - - Patient Instructions - Post Discharge Activity
[2018-08-28] MEDS ORDERED: PIPERACILLIN/TAZOB 3.375 GM 3.375 GM in DEXTROSE 5%-WATER - 50 ML IVPB ONE (01:13)
[2018-08-28] MEDS ORDERED: PIPERACILLIN/TAZOB 3.375 GM 3.375 GM/50 ML BAG IVPB ONE (02:14)
--- NOTE | 2018-08-28 04:33 | HP ---
CHIEF COMPLAINT: Abdominal Pain PCP: Dr. Kang HISTORY OF PRESENT ILLNESS: 63 y/o M with PMHx of Adenocarcinoma R Lung, Spinal cord transection at T4, Neurogenic Bladder with recurrent UTI, COPD, Splenectomy, Paroxysmal Afib (not on AC) presents with worsening LLQ Abdominal pain for the past 3 days. Patient says he has a hx of multiple UTIs and this pain feels similar. He describes the pain as 10/10 sharp pressure that does not radiate. His pain is associated with Nausea, 1 episode of black loose stools that were partially formed. During my interview, the pain improved to 7/10 and is no longer feeling nausea. Patient has tried to increase his PO Intake, and to drink more water, as this has helped in the past however this has not provided relief this time. He is unable to identify any triggers and mentions adequate hygiene as he routinely wears a [place] catheter. Denies any current fevers, chills, chest pain, SOB, vomiting. Recent Travel: Denies PAST MEDICAL HISTORY: Adenocarcinoma R Lung Spinal cord transection at T4 Neurogenic Bladder with recurrent UTI COPD Splenectomy Paroxysmal Afib (not on AC) PAST SURGICAL HISTORY: Multiple orthopedic surgery's for broken bones Social History: Smoking: Quit; Smoked 1ppd Age 5-30 Alcohol: Socially Drugs: Occasional Marijuana Use Ambulation: Bed Bound Residence: Lives in own Home with Homemaker Family History: Mother: of [place] at age 27 Father: Cardiac hx Allergies No Known Allergies Allergy (Verified 08/27/18 16:31) HOME MEDICATIONS: Home Medications Medication Instructions Recorded Diazepam [Valium] 10 mg PO TID PRN tablet MDD 30mg 06/17/18 Morphine 10 mg/5 ml Liquid 10 mg PO Q4H #150 ml MDD 60mg 06/17/18 [Morphine 10 mg/5 mL Liquid -] REVIEW OF SYSTEMS As per HPI PHYSICAL EXAMINATION Vital Signs - 24 hr 08/27/18 08/27/18 08/27/18 16:10 21:10 22:38 Temperature 97.9 F Pulse Rate 68 Pulse Rate [ 62 Radial] Respiratory 20 22 H 22 H Rate Blood Pressure 127/59 L Blood Pressure 122/70 [Left Arm] O2 Sat by Pulse 92 L 95 95 Oximetry (%) GENERAL: A&Ox3, NAD, Body habitus is rotated right HEAD: NCAT EYES: PERRL, EOMI EARS, NOSE, THROAT: Oropharynx clear without exudates. Moist mucous membranes. NECK: No JVD LUNGS: Breath sounds equal, clear to auscultation bilaterally. No wheezes HEART: Regular rate and rhythm, normal S1 and S2 without murmur ABDOMEN: Soft, Tender to palpation in the LLQ, not distended, + bowel sounds, no guarding, no rebound, Negative Chassell sign MUSCULOSKELETAL: No CVA tenderness. EXTREMITIES: No peripheral edema. NEUROLOGICAL: Cranial nerves II-XII intact. Normal speech. Flaccid paralysis of B/L LE. 5/5 Muscle strength to handgrip, elbow flexion/extension bilaterally. Loss of sensation from level of T4 and below. SKIN: Warm, dry Laboratory Results - last 24 hr 08/27/18 08/27/18 08/27/18 16:35 16:35 17:00 WBC 15.6 H RBC 4.86 Hgb 15.2 Hct 43.7 MCV 89.8 MCH 31.2 MCHC 34.7 RDW 15.6 Plt Count 455 H MPV 8.2 D Absolute Neuts (auto) 12.8 H Neutrophils % 81.9 Lymphocytes % 6.7 L D Monocytes % 10.3 H Eosinophils % 0.3 D Basophils % 0.8 Nucleated RBC % 0 Sodium 137 Potassium 3.9 Chloride 100 Carbon Dioxide 28 Anion Gap 10 BUN 5 L Creatinine 0.7 Creat Clearance w eGFR > 60 Random Glucose 104 Calcium 9.3 Total Bilirubin 0.7 AST 14 L ALT 16 Alkaline Phosphatase 137 H Total Protein 7.3 Albumin 2.9 L Lipase 360 Urine Color Urine Appearance Urine pH Ur Specific [place] Urine Protein Urine Glucose (UA) Urine Ketones Urine Blood Urine Nitrite Urine Bilirubin Urine Urobilinogen Ur Leukocyte Esterase Urine WBC (Auto) Urine RBC (Auto) Ur Epithelial Cells Urine Bacteria Urine Mucus Blood Type B POSITIVE Antibody Screen Negative 08/27/18 23:13 WBC RBC Hgb Hct MCV MCH MCHC RDW Plt Count MPV Absolute Neuts (auto) Neutrophils % Lymphocytes % Monocytes % Eosinophils % Basophils % Nucleated RBC % Sodium Potassium Chloride Carbon Dioxide Anion Gap BUN Creatinine Creat Clearance w eGFR Random Glucose Calcium Total Bilirubin AST ALT Alkaline Phosphatase Total Protein Albumin Lipase Urine Color Yellow Urine Appearance Cloudy Urine pH 6.0 Ur Specific [place] 1.023 Urine Protein Negative Urine Glucose (UA) Negative Urine Ketones Negative Urine Blood Negative Urine Nitrite Negative Urine Bilirubin Negative Urine Urobilinogen 4.0 e.u/dl Ur Leukocyte Esterase Trace Urine WBC (Auto) 27 Urine RBC (Auto) 8 Ur Epithelial Cells Moderate Urine Bacteria Rare Urine Mucus Many Blood Type Antibody Screen ASSESSMENT/PLAN: 63 y/o M with PMHx of Spinal cord transection at T4, Neurogenic Bladder with recurrent UTI presents with worsening LLQ Abdominal pain for the past 3 days #Abdominal Pain -UA reveals 27 WBC, Trace LE. CBC reveals 15.6k WBC -CT A/P: ?Mild localized Ileus, Chronic/recurrent Cystitis -Urine Cx pending -Patient given Fentanyl, Morphine, Acetaminophen for pain control in ED -Continue on Zosyn given previous Urine Cx grew Serratia, Pseudomonas -ID (Dr. Salazar) consulted -C. Diff toxin and antigen ordered given hx of recent lose stools -Can consider GI consult if diarrhea persists, and given ?Ileus on CT can consider CTAP with contrast -NPO -NS @ 75 mls/hr #FEN -NS @ 75 mls/hr -Lytes WNL -NPO #PPx -DVT: Lovenox Dispo: Admit to Med-Surg Visit type - Emergency Visit Emergency Visit: Yes ED Registration Date: 08/28/18 Care time: The patient presented to the Emergency Department on the above date and was hospitalized for further evaluation of their emergent condition. - New Patient This patient is new to me today: Yes Date on this admission: 08/28/18 - Critical Care Critical Care patient: No
--- NOTE | 2018-08-28 04:54 | PN ---
Teaching Attending Note Name of Resident: Park Juan ATTENDING PHYSICIAN STATEMENT I saw and evaluated the patient. I reviewed the resident's note and discussed the case with the resident. I agree with the resident's findings and plan as documented. 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 He is not able to walk or feel anything from the nipple line down. Take morphine for "bladder pain " at home. He denies recent fevers, chills, or infections, chest pain, SOB, difficulty breathing or back pain. OBJECTIVE: Alert and bed bound Vital Signs Period Temp Pulse Resp BP Sys/Roche Pulse Ox Last 24 Hr 97.9 F 62-68 20-22 122-127/59-70 92-95 HEENT: No Jaundice, eye redness or discharge, PERRLA, EOMI. Normocephalic, atraumatic. External ears are normal and hearing is grossly intact. No nasal discharge. Neck: Supple, nontender. No palpable adenopathy or thyromegaly. No JVD Chest: Good effort. Clear to auscultation and percussion. Heart: Regular. No S3, rub or murmur Abdomen: Not distended, soft, nontender and no HSM. No rebound or guarding. Normoactive bowel sounds. Ext: Peripheral pulses intact. No leg edema. Skin: Warm and dry. No petechiae, rash or ecchymosis. Neuro: Alert. Oriented x3. CN 2-12 grossly intact. Paraplegia. Current Medications Generic Name Dose Route Start Last Admin Trade Name Freq PRN Reason Stop Dose Admin Enoxaparin Sodium 40 mg 08/28/18 10:00 Lovenox - SQ DAILY ZAIRA Home Medications Medication Instructions Recorded Diazepam [Valium] 10 mg PO TID PRN tablet MDD 30mg 06/17/18 Morphine 10 mg/5 ml Liquid 10 mg PO Q4H #150 ml MDD 60mg 06/17/18 [Morphine 10 mg/5 mL Liquid -] Abnormal Lab Results 08/27/18 08/27/18 16:35 16:35 WBC 15.6 H Plt Count 455 H Absolute Neuts (auto) 12.8 H Lymphocytes % 6.7 L D Monocytes % 10.3 H BUN 5 L AST 14 L Alkaline Phosphatase 137 H Albumin 2.9 L ASSESSMENT AND PLAN: 1. UTI - Based on past urine culture showing pseudomonas and serretia, will treat with Zosyn pending urine culture. CT shows localized ileus. Send stool for C. Diff and repeat CT scan if he does not improve. Keep NPO for now, give IV NS, and strive to reduce dose of narcotics. Consult ID and GI. Continue frequent repositioning to avoid decubitus ulcer. Consult oncology to craft a plan of care for recently diagnosed right lung cancer. Patient may not "follow up" as outpatient to initiate cance care. 2. DVT prophylaxis - Lovenox 40 mg SQ q 24 hours. 3. Advance directives - Full code
[2018-08-28] MEDS ORDERED: SODIUM CHLORIDE 1,000 ML IV SCH (06:00)
[2018-08-28 06:49] LABS: BASO % 0.8 % (0-2.0); EOS % 1.7 % (0-4.5); HEMATOCRIT 41.8 % (35.4-49); HEMOGLOBIN 13.2 GM/dL (11.7-16.9); LYMPH % 10.7 % (8-40); MCH 29.1 pg (25.7-33.7); MCHC 31.7 g/dl (32.0-35.9); MEAN PLT VOLUME 8.6 fl (7.5-11.1); MONO % 10.1 % (3.8-10.2); NEUT % 76.7 % (42.8-82.8); PLATELET COUNT 421 K/MM3 (134-434); RBC 4.55 M/mm3 (4.00-5.60)
[2018-08-28 07:55] LABS: ALBUMIN 2.7 g/dl (3.4-5.0); ALK PHOS 121 U/L (45-117); ANION GAP 10 MMOL/L (8-16); BILIRUBIN,TOTAL 0.6 mg/dL (0.2-1); BLOOD UREA NITROGEN 11 mg/dL (7-18); CALCIUM 7.9 mg/dL (8.5-10.1); CHLORIDE 106 mmol/L (98-107); CO2 23 mmol/L (21-32); CREATININE 0.7 mg/dL (0.55-1.3); GLUCOSE,RANDOM 86 mg/dL (74-106); PHOSPHOROUS 2.3 mg/dL (2.5-4.9); POTASSIUM 3.9 mmol/L (3.5-5.1); SGOT/AST 15 U/L (15-37); SGPT/ALT 14 U/L (13-61); SODIUM 138 mmol/L (136-145); TOT PROT 6.3 g/dl (6.4-8.2)
[2018-08-28] MEDS: ENOXAPARIN NA (PORCINE) 40 MG/0.4 ML DISP.SYRIN SQ SCH (11:07)
--- NOTE | 2018-08-28 14:19 | PN ---
Teaching Attending Note Name of Resident: Ashlie Addison ATTENDING PHYSICIAN STATEMENT I saw and evaluated the patient. I reviewed the resident's note and discussed the case with the resident. I agree with the resident's findings and plan as documented. SUBJECTIVE: Patient says LLQ abdominal pain is improving. Diarrhea is at baseline. OBJECTIVE: Vital Signs Period Temp Pulse Resp BP Sys/Roche Pulse Ox Last 24 Hr 97.7 F-98.5 F 56-68 18-22 122-154/56-70 92-96 HEART: S1S2, RRR LUNGS: Clear ABDOMEN: Soft, mild LLQ/suprapubic tenderness, non-distended, normal BS EXTREMITIES: No edema Laboratory Results - last 24 hr 08/27/18 08/27/18 08/27/18 16:35 16:35 17:00 WBC 15.6 H RBC 4.86 Hgb 15.2 Hct 43.7 MCV 89.8 MCH 31.2 MCHC 34.7 RDW 15.6 Plt Count 455 H MPV 8.2 D Absolute Neuts (auto) 12.8 H Neutrophils % 81.9 Lymphocytes % 6.7 L D Monocytes % 10.3 H Eosinophils % 0.3 D Basophils % 0.8 Nucleated RBC % 0 Sodium 137 Potassium 3.9 Chloride 100 Carbon Dioxide 28 Anion Gap 10 BUN 5 L Creatinine 0.7 Creat Clearance w eGFR > 60 Random Glucose 104 Calcium 9.3 Phosphorus Magnesium Total Bilirubin 0.7 AST 14 L ALT 16 Alkaline Phosphatase 137 H Total Protein 7.3 Albumin 2.9 L Lipase 360 Urine Color Urine Appearance Urine pH Ur Specific [place] Urine Protein Urine Glucose (UA) Urine Ketones Urine Blood Urine Nitrite Urine Bilirubin Urine Urobilinogen Ur Leukocyte Esterase Urine WBC (Auto) Urine RBC (Auto) Ur Epithelial Cells Urine Bacteria Urine Mucus Blood Type B POSITIVE Antibody Screen Negative 08/27/18 08/28/18 08/28/18 23:13 06:00 06:00 WBC 15.0 H RBC 4.55 Hgb 13.2 Hct 41.8 MCV 92.0 MCH 29.1 MCHC 31.7 L RDW 16.0 H Plt Count 421 MPV 8.6 Absolute Neuts (auto) 11.5 H Neutrophils % 76.7 Lymphocytes % 10.7 D Monocytes % 10.1 Eosinophils % 1.7 D Basophils % 0.8 Nucleated RBC % 0 Sodium 138 Potassium 3.9 Chloride 106 Carbon Dioxide 23 Anion Gap 10 BUN 11 Creatinine 0.7 Creat Clearance w eGFR > 60 Random Glucose 86 Calcium 7.9 L Phosphorus 2.3 L Magnesium 2.0 Total Bilirubin 0.6 AST 15 ALT 14 Alkaline Phosphatase 121 H Total Protein 6.3 L Albumin 2.7 L Lipase Urine Color Yellow Urine Appearance Cloudy Urine pH 6.0 Ur Specific [place] 1.023 Urine Protein Negative Urine Glucose (UA) Negative Urine Ketones Negative Urine Blood Negative Urine Nitrite Negative Urine Bilirubin Negative Urine Urobilinogen 4.0 e.u/dl Ur Leukocyte Esterase Trace Urine WBC (Auto) 27 Urine RBC (Auto) 8 Ur Epithelial Cells Moderate Urine Bacteria Rare Urine Mucus Many Blood Type Antibody Screen Current Medications Generic Name Dose Route Start Last Admin Trade Name Freq PRN Reason Stop Dose Admin Enoxaparin Sodium 40 mg 08/28/18 10:00 08/28/18 11:07 Lovenox - SQ Not Given DAILY [facility]AIRA Sodium Chloride 1,000 mls @ 75 mls/hr 08/28/18 06:00 08/28/18 06:09 Normal Saline - IV 75 mls/hr ASDIR ZAIRA Administration ASSESSMENT AND PLAN: This is a 63 year old man with a history of paraplegia, spinal cord transection , neurogenic bladder, recurrent UTIs who presented to the ED with LLQ abdominal pain. 1. Abdominal pain secondary to UTI - Continue Zosyn - ID consult - Follow up urine culture 2. Diarrhea - Patient reports this is his baseline 3. Neurogenic bladder 4. Paraplegia secondary to T2 fracture with T2-T4 cord transection 5. Lung nodules - Outpatient pulmonary follow up 6. Anxiety disorder - Continue Valium as needed 7. B/L iliac artery occlusion - Chronic
[2018-08-28] MEDS ORDERED: PIPERACILLIN/TAZOBACTAM 2.25 GM VIAL IVPB ONE ×2 (16:11→21:35)
[2018-08-28] MEDS ORDERED: DEXTROSE 5%-WATER - 50 ML IVPB ONE ×2 (16:11→21:35)
[2018-08-28] MEDS: PIPERACILLIN/TAZOB 2.25 GM 2.25 GM in DEXTROSE 5%-WATER - 50 ML IVPB SCH ×2 (16:21→22:05)
--- NOTE | 2018-08-28 18:04 | PN ---
Physical Exam: SUBJECTIVE: Patient seen and examined at bed side this morning. States suprapubic tenderness has decreased. no loose BM. Wants to drink and eat. Denies chest pain, sob, cough, palpitation, abdominal pain, nausea or vomiting. No acute overnight events. OBJECTIVE: Vital Signs Period Temp Pulse Resp BP Sys/Roche Pulse Ox Last 24 Hr 97.7 F-98.5 F 53-62 18-22 122-154/56-70 95-96 GENERAL: The patient is awake, alert, and fully oriented, in no acute distress. HEAD: Normal with no signs of trauma. EYES: EOM intact, no pallor or icterus. . ENT: Ears normal, dry mucous membranes. NECK: Supple. LUNGS: Breath sounds equal, clear to auscultation bilaterally, no wheezes, no crackles, no accessory muscle use. HEART: Regular rate and rhythm, S1, S2 without murmur. ABDOMEN: Surgical scar sarah +, Soft, nontender, no organomegaly. EXTREMITIES: UPPER 2+ pulses, warm, well-perfused, no edema. LOWER EXTREMITIES: Contracted lower limbs, muscle wasting, no sensation NEUROLOGICAL: No facial droop. Power 5/5 in Upper Ext. Cranial nerves II through XII grossly intact. Normal speech. Loss of sensation from mid thoracic below. Power 0/5 in Lower ext. Pulses intact. PSYCH: Normal mood, normal affect. No sacral decubiti: Healed scar. SKIN: Warm, dry, normal turgor, no rashes or lesions noted Laboratory Results - last 24 hr 08/27/18 08/27/18 08/28/18 17:00 23:13 06:00 WBC 15.0 H RBC 4.55 Hgb 13.2 Hct 41.8 MCV 92.0 MCH 29.1 MCHC 31.7 L RDW 16.0 H Plt Count 421 MPV 8.6 Absolute Neuts (auto) 11.5 H Neutrophils % 76.7 Lymphocytes % 10.7 D Monocytes % 10.1 Eosinophils % 1.7 D Basophils % 0.8 Nucleated RBC % 0 Sodium Potassium Chloride Carbon Dioxide Anion Gap BUN Creatinine Creat Clearance w eGFR Random Glucose Calcium Phosphorus Magnesium Total Bilirubin AST ALT Alkaline Phosphatase Total Protein Albumin Urine Color Yellow Urine Appearance Cloudy Urine pH 6.0 Ur Specific [place] 1.023 Urine Protein Negative Urine Glucose (UA) Negative Urine Ketones Negative Urine Blood Negative Urine Nitrite Negative Urine Bilirubin Negative Urine Urobilinogen 4.0 e.u/dl Ur Leukocyte Esterase Trace Urine WBC (Auto) 27 Urine RBC (Auto) 8 Ur Epithelial Cells Moderate Urine Bacteria Rare Urine Mucus Many Blood Type B POSITIVE Antibody Screen Negative 08/28/18 06:00 WBC RBC Hgb Hct MCV MCH MCHC RDW Plt Count MPV Absolute Neuts (auto) Neutrophils % Lymphocytes % Monocytes % Eosinophils % Basophils % Nucleated RBC % Sodium 138 Potassium 3.9 Chloride 106 Carbon Dioxide 23 Anion Gap 10 BUN 11 Creatinine 0.7 Creat Clearance w eGFR > 60 Random Glucose 86 Calcium 7.9 L Phosphorus 2.3 L Magnesium 2.0 Total Bilirubin 0.6 AST 15 ALT 14 Alkaline Phosphatase 121 H Total Protein 6.3 L Albumin 2.7 L Urine Color Urine Appearance Urine pH Ur Specific [place] Urine Protein Urine Glucose (UA) Urine Ketones Urine Blood Urine Nitrite Urine Bilirubin Urine Urobilinogen Ur Leukocyte Esterase Urine WBC (Auto) Urine RBC (Auto) Ur Epithelial Cells Urine Bacteria Urine Mucus Blood Type Antibody Screen Active Medications Generic Name Dose Route Start Last Admin Trade Name Sahra PRN Reason Stop Dose Admin Enoxaparin Sodium 40 mg 08/28/18 10:00 08/28/18 11:07 Lovenox - SQ Not Given DAILY ZAIRA Piperacillin Sod/Tazobactam 50 mls @ 100 mls/hr 08/28/18 15:15 Sod 2.25 gm/ Dextrose IVPB Q8H-IV ZAIRA Protocol Piperacillin Sod/Tazobactam 50 mls @ 100 mls/hr 08/28/18 15:15 08/28/18 16:21 Sod 2.25 gm/ Dextrose IVPB 08/29/18 07:44 100 mls/hr Q8H ZAIRA Administration Protocol ASSESSMENT/PLAN: Patient is a 63 year old male with PMHx of 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 chronic/recurrent cystitis. CT abdomen/pelvis was done which showed mild localized ileus. Continue IV Zosyn 3.375 gm Q8H . Confirmed with Dr. Salazar. Urine cultures pending. Change abx as per c/s Urine culture in 05/28/18 showed pseudomonas sensitive to zosyn. # Diarrhoea has resolved Was taking stool softners at home, will hold for now. # Lung nodule RLL 1.7 cm nodule which increased from 1.4 cm (05/02/18). 1.3 x 0.5 cm spiculated nodule in LLL without any interval change from prior CT. Needs outpatient f/up with Urogynecology Physician. 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 # Anxiety Continue Diazepam PRN #FEN IV fluids discontinued , can tolerate PO Electrolytes Hypophos, repleted. Regular diet # Prophylaxis For DVT : On Lovenox sq daily For GI: Not indicated # Medications : Confirmed. # Code Status: Full Code # Dispo: Admit to Med-Surg Illness, Investigation and Plan of care explained to the patient. He verbalized understanding. Case discussed with Dr. Watters. Visit type - Emergency Visit Emergency Visit: Yes ED Registration Date: 08/28/18 Care time: The patient presented to the Emergency Department on the above date and was hospitalized for further evaluation of their emergent condition. - New Patient This patient is new to me today: Yes Date on this admission: 08/28/18 - Critical Care Critical Care patient: No - Discharge Referral Referred to [facility] Med P.C.: No
[2018-08-28] MEDS ORDERED: morphine SULFATE 10 MG/5 ML UNIT-DOSE CUP PO SCH (18:30)
[2018-08-28] MEDS ORDERED: NAPH,MB-DB/K PH,MBDB POWDER PACKET PO ONE (18:30)
[2018-08-28] MEDS: morphine SULFATE 10 MG/5 ML UNIT-DOSE CUP PO PRN (20:04)
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
[2018-08-28] MEDS: diazePAM 5 MG TABLET PO PRN (23:48)
[2018-08-29] MEDS: morphine SULFATE 10 MG/5 ML UNIT-DOSE CUP PO PRN ×3 (01:50→21:20)
[2018-08-29 07:48] LABS: HEMATOCRIT 40.7 % (35.4-49); MCH 29.4 pg (25.7-33.7); MEAN PLT VOLUME 9.5 fl (7.5-11.1); PLATELET COUNT 379 K/MM3 (134-434); RBC 4.42 M/mm3 (4.00-5.60); RDW 16.1 % (11.9-15.9); WHITE BLOOD COUNT 12.3 K/mm3 (4.0-10.0)
[2018-08-29 08:14] LABS: ANION GAP 10 MMOL/L (8-16); BLOOD UREA NITROGEN 5 mg/dL (7-18); CHLORIDE 102 mmol/L (98-107); CO2 25 mmol/L (21-32); CREATININE 0.5 mg/dL (0.55-1.3); GLUCOSE,RANDOM 78 mg/dL (74-106); MAGNESIUM 2.1 mg/dL (1.8-2.4); PHOSPHOROUS 2.2 mg/dL (2.5-4.9); POTASSIUM 3.7 mmol/L (3.5-5.1); SODIUM 137 mmol/L (136-145)
[2018-08-29] MEDS: ENOXAPARIN NA (PORCINE) 40 MG/0.4 ML DISP.SYRIN SQ SCH (09:30)
[2018-08-29] MEDS: PIPERACILLIN/TAZOB 2.25 GM 2.25 GM in DEXTROSE 5%-WATER - 50 ML IVPB SCH ×3 (09:30→17:25)
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
[2018-08-29] MEDS ORDERED: SODIUM CHLORIDE 1,000 ML IV STA (13:50)
[2018-08-29] MEDS: NAPH,MB-DB/K PH,MBDB POWDER PACKET PO SCH ×2 (13:56→21:20)
[2018-08-29] MEDS ORDERED: PIPERACILLIN/TAZOBACTAM 2.25 GM VIAL IVPB ONE (17:08)
[2018-08-29] MEDS ORDERED: DEXTROSE 5%-WATER - 50 ML IVPB ONE (17:08)
--- NOTE | 2018-08-29 17:43 | PN ---
Progress Note, Physician History of Present Illness: Pt seen and examined and events noted. He states he is feeling better, has less abdominal discomfort. He is afebrile and without any other specific complaints. - Current Medication List Current Medications: Active Medications Diazepam (Valium -) 10 mg PO Q8H PRN PRN Reason: ANXIETY Last Admin: 08/28/18 23:48 Dose: 10 mg Enoxaparin Sodium (Lovenox -) 40 mg SQ DAILY ZAIRA Last Admin: 08/29/18 09:30 Dose: 40 mg Piperacillin Sod/Tazobactam (Sod 2.25 gm/ Dextrose) 50 mls @ 100 mls/hr IVPB Q8H-IV ZAIRA; Protocol Last Admin: 08/29/18 17:25 Dose: 100 mls/hr Morphine Sulfate (Morphine 10 Mg/5 Ml Liquid) 10 mg PO Q4H PRN PRN Reason: PAIN LEVEL 7 - 10 Last Admin: 08/29/18 09:38 Dose: 10 mg Potassium Phos/Sodium Phos (Phos-Nak Packet -) 1 packet PO TID ZAIRA Last Admin: 08/29/18 13:56 Dose: 1 packet - Objective Vital Signs: Vital Signs Temperature 98.4 F 08/29/18 13:05 Pulse Rate 108 H 08/29/18 15:31 Respiratory Rate 20 08/29/18 13:05 Blood Pressure 70/34 L 08/29/18 13:05 O2 Sat by Pulse Oximetry (%) 96 08/29/18 09:00 Constitutional: Yes: No Distress, Calm, Other (paraplegia) Cardiovascular: Yes: Regular Rate and Rhythm Respiratory: Yes: Regular Gastrointestinal: Yes: Normal Bowel Sounds, Soft Genitourinary: Yes: Other ([place] catheter draining urine) Integumentary: Yes: WNL Neurological: Yes: Alert Labs: CBC, BMP 08/29/18 06:45 08/29/18 06:45 Microbiology 08/28/18 02:20 Urine - Urine Clean Catch Urine Culture - Preliminary Non Lactose Fermenting Gnb Problem List - Problems (1) UTI (urinary tract infection) Code(s): N39.0 - URINARY TRACT INFECTION, SITE NOT SPECIFIED Qualifiers: Urinary tract infection type: site unspecified Hematuria presence: without hematuria Qualified Code(s): N39.0 - Urinary tract infection, site not specified (2) Adenocarcinoma of right lung Code(s): C34.91 - MALIGNANT NEOPLASM OF UNSP PART OF RIGHT BRONCHUS OR LUNG (3) Leukocytosis Code(s): D72.829 - ELEVATED WHITE BLOOD CELL COUNT, UNSPECIFIED (4) Paroxysmal A-fib Code(s): I48.0 - PAROXYSMAL ATRIAL FIBRILLATION (5) Neurogenic bladder Code(s): N31.9 - NEUROMUSCULAR DYSFUNCTION OF BLADDER, UNSPECIFIED (6) Paraplegia Code(s): G82.20 - PARAPLEGIA, UNSPECIFIED Assessment/Plan UTI Leukocytosis Neurogenic bladder Paraplegia T2 fracture -- follow up urine culture isolates -- continue Zosyn for now -- wbc decreasing, pt is afebrile/alert continue monitor
[2018-08-29] MEDS: METOPROLOL TARTRATE 25 MG TABLET (FP) PO SCH ×2 (18:07→21:20)
[2018-08-29] MEDS ORDERED: PT OWN MED DRAWER 7, Y5N ONE ×2 (18:10→18:18)
[2018-08-29] MEDS: diazePAM 5 MG TABLET PO PRN (22:05)
[2018-08-30] MEDS ORDERED: PIPERACILLIN/TAZOBACTAM 2.25 GM VIAL IVPB ONE ×2 (01:27→10:15)
[2018-08-30] MEDS ORDERED: DEXTROSE 5%-WATER - 50 ML IVPB ONE ×3 (01:27→15:42)
[2018-08-30] MEDS: PIPERACILLIN/TAZOB 2.25 GM 2.25 GM in DEXTROSE 5%-WATER - 50 ML IVPB SCH ×2 (01:30→10:18)
[2018-08-30] MEDS: morphine SULFATE 10 MG/5 ML UNIT-DOSE CUP PO PRN ×4 (03:13→21:27)
[2018-08-30] MEDS: NAPH,MB-DB/K PH,MBDB POWDER PACKET PO SCH ×3 (06:03→21:27)
[2018-08-30 08:29] LABS: ANION GAP 8 MMOL/L (8-16); BLOOD UREA NITROGEN 5 mg/dL (7-18); CALCIUM 8.1 mg/dL (8.5-10.1); CHLORIDE 103 mmol/L (98-107); CO2 26 mmol/L (21-32); CREATININE 0.7 mg/dL (0.55-1.3); GLUCOSE,RANDOM 73 mg/dL (74-106); PHOSPHOROUS 3.4 mg/dL (2.5-4.9); POTASSIUM 4.2 mmol/L (3.5-5.1); SODIUM 137 mmol/L (136-145)
[2018-08-30] MEDS: ENOXAPARIN NA (PORCINE) 40 MG/0.4 ML DISP.SYRIN SQ SCH (10:17)
[2018-08-30] MEDS: METOPROLOL TARTRATE 25 MG TABLET (FP) PO SCH ×2 (10:17→21:27)
--- NOTE | 2018-08-30 14:12 | PN ---
Progress Note, Physician History of Present Illness: No new events. Pt states he has abd discomfort but believes he ate too much. Remains afebrile. - Current Medication List Current Medications: Active Medications Diazepam (Valium -) 10 mg PO Q8H PRN PRN Reason: ANXIETY Last Admin: 08/29/18 22:05 Dose: 10 mg Enoxaparin Sodium (Lovenox -) 40 mg SQ DAILY [facility] Last Admin: 08/30/18 10:17 Dose: 40 mg Ceftriaxone Sodium 1 gm/ (Dextrose) 100 mls @ 200 mls/hr IVPB DAILY [facility]; Protocol Metoprolol Tartrate (Lopressor -) 12.5 mg PO BID [facility] Last Admin: 08/30/18 10:17 Dose: 12.5 mg Morphine Sulfate (Morphine 10 Mg/5 Ml Liquid) 10 mg PO Q4H PRN PRN Reason: PAIN LEVEL 7 - 10 Last Admin: 08/30/18 11:11 Dose: 10 mg Potassium Phos/Sodium Phos (Phos-Nak Packet -) 1 packet PO TID [facility] Last Admin: 08/30/18 06:03 Dose: 1 packet - Objective Vital Signs: Vital Signs Temperature 98 F 08/30/18 09:00 Pulse Rate 72 08/30/18 09:00 Respiratory Rate 18 08/30/18 09:00 Blood Pressure 127/43 L 08/30/18 09:00 O2 Sat by Pulse Oximetry (%) 97 08/29/18 21:00 Constitutional: Yes: No Distress, Calm Cardiovascular: Yes: Regular Rate and Rhythm Respiratory: Yes: Regular Gastrointestinal: Yes: Normal Bowel Sounds, Soft Neurological: Yes: Other (paraplegia) Labs: CBC, BMP 08/29/18 06:45 08/30/18 06:20 Problem List - Problems (1) UTI (urinary tract infection) Code(s): N39.0 - URINARY TRACT INFECTION, SITE NOT SPECIFIED Qualifiers: Urinary tract infection type: site unspecified Hematuria presence: without hematuria Qualified Code(s): N39.0 - Urinary tract infection, site not specified (2) Adenocarcinoma of right lung Code(s): C34.91 - MALIGNANT NEOPLASM OF UNSP PART OF RIGHT BRONCHUS OR LUNG (3) Leukocytosis Code(s): D72.829 - ELEVATED WHITE BLOOD CELL COUNT, UNSPECIFIED (4) Paroxysmal A-fib Code(s): I48.0 - PAROXYSMAL ATRIAL FIBRILLATION (5) Neurogenic bladder Code(s): N31.9 - NEUROMUSCULAR DYSFUNCTION OF BLADDER, UNSPECIFIED (6) Paraplegia Code(s): G82.20 - PARAPLEGIA, UNSPECIFIED Assessment/Plan Complicated UTI Leukocytosis Neurogenic bladder Paraplegia T2 fracture -- urine culture results noted -- d/c Zosyn, switch to Ceftriaxone -- repeat cbc, if continues to improve switch to oral antibiotics pt currently stable
[2018-08-30] MEDS ORDERED: cefTRIAXone SODIUM 1 GM VIAL ONE (15:42)
[2018-08-30] MEDS: diazePAM 5 MG TABLET PO PRN ×2 (15:45→21:27)
[2018-08-30] MEDS: CEFTRIAXONE 1 GM in DEXTROSE 5%-WATER - 50 ML IVPB SCH (15:46)
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
[2018-08-31] MEDS: NAPH,MB-DB/K PH,MBDB POWDER PACKET PO SCH ×2 (06:20→13:40)
--- NOTE | 2018-08-31 07:19 | EKG ---
Test Reason : Blood Pressure : / mmHG Vent. Rate : 102 BPM Atrial Rate : 066 BPM P-R Int : 000 ms QRS Dur : 076 ms QT Int : 334 ms P-R-T Axes : 000 069 088 degrees QTc Int : 435 ms POOR DATA QUALITY, INTERPRETATION MAY BE ADVERSELY AFFECTED ATRIAL FIBRILLATION WITH RAPID VENTRICULAR RESPONSE ABNORMAL ECG WHEN COMPARED WITH ECG OF 15-JUN-2018 14:21, ATRIAL FIBRILLATION HAS REPLACED SINUS RHYTHM VENT. RATE HAS INCREASED BY 43 BPM Confirmed by OLIMPIA BAILEY MD ([id number]) on 08/31/2018 7:18:57 AM Referred By: Manas MUNGUIA Confirmed By:OLIMPIA BAILEY MD
--- NOTE | 2018-08-31 07:19 | EKG ---
Test Reason : Blood Pressure : / mmHG Vent. Rate : 143 BPM Atrial Rate : 156 BPM P-R Int : 000 ms QRS Dur : 082 ms QT Int : 256 ms P-R-T Axes : 000 068 102 degrees QTc Int : 395 ms POOR DATA QUALITY, INTERPRETATION MAY BE ADVERSELY AFFECTED ATRIAL FIBRILLATION WITH RAPID VENTRICULAR RESPONSE NONSPECIFIC T WAVE ABNORMALITY ABNORMAL ECG WHEN COMPARED WITH ECG OF 29-AUG-2018 15:58, ST NO LONGER ELEVATED IN INFERIOR LEADS Confirmed by OLIMPIA BAILEY MD ([id number]) on 08/31/2018 7:18:48 AM Referred By: Manas MUNGUIA Confirmed By:OLIMPIA BAILEY MD
[2018-08-31 08:29] LABS: HEMATOCRIT 42.7 % (35.4-49); MCH 30.1 pg (25.7-33.7); MCHC 32.7 g/dl (32.0-35.9); MEAN CELL VOLUME 92.2 fl (80-96); MEAN PLT VOLUME 9.3 fl (7.5-11.1); PLATELET COUNT 406 K/MM3 (134-434); RBC 4.63 M/mm3 (4.00-5.60); RDW 15.7 % (11.9-15.9); WHITE BLOOD COUNT 11.4 K/mm3 (4.0-10.0)
[2018-08-31 08:30] LABS: BASO % 0.3 % (0-2.0); EOS % 3.9 % (0-4.5); LYMPH % 13.5 % (8-40); MONO % 12.4 % (3.8-10.2); NEUT % 69.9 % (42.8-82.8)
[2018-08-31] MEDS ORDERED: cefTRIAXone SODIUM 1 GM VIAL ONE (08:59)
[2018-08-31] MEDS ORDERED: DEXTROSE 5%-WATER - 50 ML IVPB ONE (09:00)
[2018-08-31] MEDS: DOCUSATE SODIUM 100 MG CAPSULE (FP) PO SCH ×3 (09:31→17:18)
[2018-08-31] MEDS: ENOXAPARIN NA (PORCINE) 40 MG/0.4 ML DISP.SYRIN SQ SCH (09:31)
[2018-08-31] MEDS: METOPROLOL TARTRATE 25 MG TABLET (FP) PO SCH ×2 (09:32→21:48)
[2018-08-31] MEDS: CEFTRIAXONE 1 GM in DEXTROSE 5%-WATER - 50 ML IVPB SCH (09:32)
[2018-08-31] MEDS: morphine SULFATE 10 MG/5 ML UNIT-DOSE CUP PO PRN ×4 (09:43→22:36)
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
--- NOTE | 2018-08-31 15:26 | PN ---
Progress Note, Physician History of Present Illness: still not feeling very well - Current Medication List Current Medications: Active Medications Diazepam (Valium -) 10 mg PO Q8H PRN PRN Reason: ANXIETY Last Admin: 08/30/18 21:27 Dose: 10 mg Docusate Sodium (Colace -) 100 mg PO TIDCM [facility] Last Admin: 08/31/18 12:00 Dose: 100 mg Enoxaparin Sodium (Lovenox -) 40 mg SQ DAILY [facility] Last Admin: 08/31/18 09:31 Dose: 40 mg Ceftriaxone Sodium 1 gm/ (Dextrose) 50 mls @ 100 mls/hr IVPB DAILY [facility]; Protocol Last Admin: 08/31/18 09:32 Dose: 100 mls/hr Metoprolol Tartrate (Lopressor -) 12.5 mg PO BID [facility] Last Admin: 08/31/18 09:32 Dose: 12.5 mg Morphine Sulfate (Morphine 10 Mg/5 Ml Liquid) 10 mg PO Q4H PRN PRN Reason: PAIN LEVEL 7 - 10 Last Admin: 08/31/18 14:20 Dose: 10 mg - Objective Vital Signs: Vital Signs Temperature 98.7 F 08/31/18 14:57 Pulse Rate 59 L 08/31/18 14:57 Respiratory Rate 20 08/31/18 14:57 Blood Pressure 155/75 08/31/18 14:57 O2 Sat by Pulse Oximetry (%) 95 08/31/18 09:00 Constitutional: Yes: No Distress, Calm Cardiovascular: Yes: Regular Rate and Rhythm Respiratory: Yes: Regular, CTA Bilaterally Gastrointestinal: Yes: Normal Bowel Sounds, Soft Musculoskeletal: Yes: Other Extremities: Yes: Other (contracted) Neurological: Yes: Alert, Oriented Psychiatric: Yes: Alert, Oriented Labs: CBC, BMP 08/31/18 07:00 08/30/18 06:20 Assessment/Plan Problem List - Problems (1) UTI (urinary tract infection) Code(s): N39.0 - URINARY TRACT INFECTION, SITE NOT SPECIFIED Qualifiers: Urinary tract infection type: site unspecified Hematuria presence: without hematuria Qualified Code(s): N39.0 - Urinary tract infection, site not specified (2) Adenocarcinoma of right lung Code(s): C34.91 - MALIGNANT NEOPLASM OF UNSP PART OF RIGHT BRONCHUS OR LUNG (3) Leukocytosis Code(s): D72.829 - ELEVATED WHITE BLOOD CELL COUNT, UNSPECIFIED (4) Paroxysmal A-fib Code(s): I48.0 - PAROXYSMAL ATRIAL FIBRILLATION (5) Neurogenic bladder Code(s): N31.9 - NEUROMUSCULAR DYSFUNCTION OF BLADDER, UNSPECIFIED (6) Paraplegia Code(s): G82.20 - PARAPLEGIA, UNSPECIFIED Assessment/Plan Complicated UTI Leukocytosis Neurogenic bladder Paraplegia T2 fracture plan continue current abx rest as per the team
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
[2018-08-31] MEDS: diazePAM 5 MG TABLET PO PRN (23:57)
[2018-09-01] MEDS: morphine SULFATE 10 MG/5 ML UNIT-DOSE CUP PO PRN ×5 (06:17→23:09)
[2018-09-01 07:39] LABS: BASO % 1.3 % (0-2.0); EOS % 2.8 % (0-4.5); HEMATOCRIT 42.7 % (35.4-49); HEMOGLOBIN 13.6 GM/dL (11.7-16.9); LYMPH % 12.4 % (8-40); MCH 29.5 pg (25.7-33.7); MCHC 31.9 g/dl (32.0-35.9); MEAN CELL VOLUME 92.4 fl (80-96); MEAN PLT VOLUME 9.8 fl (7.5-11.1); MONO % 12.1 % (3.8-10.2); NEUT % 71.4 % (42.8-82.8); PLATELET COUNT 443 K/MM3 (134-434); RBC 4.63 M/mm3 (4.00-5.60); RDW 15.7 % (11.9-15.9); WHITE BLOOD COUNT 11.6 K/mm3 (4.0-10.0)
[2018-09-01 07:58] LABS: ANION GAP 8 MMOL/L (8-16); BLOOD UREA NITROGEN 7 mg/dL (7-18); CALCIUM 8.6 mg/dL (8.5-10.1); CHLORIDE 102 mmol/L (98-107); CO2 26 mmol/L (21-32); CREATININE 0.6 mg/dL (0.55-1.3); GLUCOSE,RANDOM 68 mg/dL (74-106); POTASSIUM 4.7 mmol/L (3.5-5.1); SODIUM 136 mmol/L (136-145)
[2018-09-01] MEDS ORDERED: DEXTROSE 5%-WATER - 50 ML IVPB ONE (09:01)
[2018-09-01] MEDS ORDERED: cefTRIAXone SODIUM 1 GM VIAL ONE (09:01)
[2018-09-01] MEDS: ENOXAPARIN NA (PORCINE) 40 MG/0.4 ML DISP.SYRIN SQ SCH (09:03)
[2018-09-01] MEDS: DOCUSATE SODIUM 100 MG CAPSULE (FP) PO SCH ×3 (09:03→17:08)
[2018-09-01] MEDS: METOPROLOL TARTRATE 25 MG TABLET (FP) PO SCH ×2 (09:03→22:20)
[2018-09-01] MEDS: CEFTRIAXONE 1 GM in DEXTROSE 5%-WATER - 50 ML IVPB SCH (09:03)
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
[2018-09-01] MEDS: diazePAM 5 MG TABLET PO PRN (17:08)
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
[2018-09-02] MEDS: morphine SULFATE 10 MG/5 ML UNIT-DOSE CUP PO PRN ×4 (03:09→22:24)
[2018-09-02 07:38] LABS: HEMATOCRIT 42.2 % (35.4-49); HEMOGLOBIN 14.5 GM/dL (11.7-16.9); MCH 31.4 pg (25.7-33.7); MCHC 34.4 g/dl (32.0-35.9); MEAN CELL VOLUME 91.5 fl (80-96); MEAN PLT VOLUME 10.2 fl (7.5-11.1); PLATELET COUNT 441 K/MM3 (134-434); RBC 4.61 M/mm3 (4.00-5.60); RDW 15.8 % (11.9-15.9); WHITE BLOOD COUNT 10.2 K/mm3 (4.0-10.0)
[2018-09-02 08:42] LABS: INR 0.97 (0.83-1.09); PROTHROMBIN TIME (PATIENT) 11.5 SEC (9.7-13.0)
[2018-09-02 08:45] LABS: ACTIVATED PTT 35.5 SECONDS (25.2-36.5)
[2018-09-02] MEDS ORDERED: DEXTROSE 5%-WATER - 50 ML IVPB ONE (10:08)
[2018-09-02] MEDS ORDERED: cefTRIAXone SODIUM 1 GM VIAL ONE (10:08)
[2018-09-02] MEDS: DOCUSATE SODIUM 100 MG CAPSULE (FP) PO SCH ×3 (10:28→16:30)
[2018-09-02] MEDS: ENOXAPARIN NA (PORCINE) 40 MG/0.4 ML DISP.SYRIN SQ SCH (10:29)
[2018-09-02] MEDS: METOPROLOL TARTRATE 25 MG TABLET (FP) PO SCH ×2 (10:29→22:23)
[2018-09-02] MEDS: CEFTRIAXONE 1 GM in DEXTROSE 5%-WATER - 50 ML IVPB SCH (10:30)
--- NOTE | 2018-09-02 10:40 | PN ---
Progress Note, Physician History of Present Illness: patient doing well no issues says still not feeling very well but better than yesterday - Current Medication List Current Medications: Active Medications Diazepam (Valium -) 10 mg PO Q8H PRN PRN Reason: ANXIETY Last Admin: 09/01/18 17:08 Dose: 10 mg Docusate Sodium (Colace -) 100 mg PO TIDCM [facility] Last Admin: 09/02/18 10:28 Dose: 100 mg Enoxaparin Sodium (Lovenox -) 40 mg SQ DAILY [facility] Last Admin: 09/02/18 10:29 Dose: 40 mg Ceftriaxone Sodium 1 gm/ (Dextrose) 50 mls @ 100 mls/hr IVPB DAILY [facility]; Protocol Last Admin: 09/02/18 10:30 Dose: 100 mls/hr Metoprolol Tartrate (Lopressor -) 12.5 mg PO BID [facility] Last Admin: 09/02/18 10:29 Dose: 12.5 mg Morphine Sulfate (Morphine 10 Mg/5 Ml Liquid) 10 mg PO Q4H PRN PRN Reason: PAIN LEVEL 7 - 10 Last Admin: 09/02/18 08:53 Dose: 10 mg - Objective Vital Signs: Vital Signs Temperature 98.5 F 09/02/18 10:00 Pulse Rate 72 09/02/18 10:00 Respiratory Rate 20 09/02/18 10:00 Blood Pressure 129/82 09/02/18 10:00 O2 Sat by Pulse Oximetry (%) 95 09/01/18 20:35 Constitutional: Yes: No Distress, Calm HENT: Yes: Atraumatic, Normocephalic Cardiovascular: Yes: Regular Rate and Rhythm Respiratory: Yes: Regular, CTA Bilaterally Gastrointestinal: Yes: Normal Bowel Sounds, Soft Extremities: Yes: Other (contracted) Neurological: Yes: Alert, Oriented Psychiatric: Yes: Alert, Oriented Labs: CBC, BMP 09/02/18 06:00 09/01/18 06:00 INR, PTT INR 0.97 (0.83-1.09) 09/02/18 06:00 Assessment/Plan Problem List - Problems (1) UTI (urinary tract infection) Code(s): N39.0 - URINARY TRACT INFECTION, SITE NOT SPECIFIED Qualifiers: Urinary tract infection type: site unspecified Hematuria presence: without hematuria Qualified Code(s): N39.0 - Urinary tract infection, site not specified (2) Adenocarcinoma of right lung Code(s): C34.91 - MALIGNANT NEOPLASM OF UNSP PART OF RIGHT BRONCHUS OR LUNG (3) Leukocytosis Code(s): D72.829 - ELEVATED WHITE BLOOD CELL COUNT, UNSPECIFIED (4) Paroxysmal A-fib Code(s): I48.0 - PAROXYSMAL ATRIAL FIBRILLATION (5) Neurogenic bladder Code(s): N31.9 - NEUROMUSCULAR DYSFUNCTION OF BLADDER, UNSPECIFIED (6) Paraplegia Code(s): G82.20 - PARAPLEGIA, UNSPECIFIED Assessment/Plan Complicated UTI Leukocytosis Neurogenic bladder Paraplegia T2 fracture plan continue current abx rest as per the team
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
--- NOTE | 2018-09-02 18:37 | PN ---
Teaching Attending Note Name of Resident: Ashlie Addison ATTENDING PHYSICIAN STATEMENT I saw and evaluated the patient. I reviewed the resident's note and discussed the case with the resident. I agree with the resident's findings and plan as documented. SUBJECTIVE: Mr Valenzuela says he is feeling better, with some minor abdominal pain but otherwise w/o complaint. Denies cp, sob, n/v. OBJECTIVE: Last Vital Signs Temp Pulse Resp BP Pulse Ox 37.1 C 53 L 20 116/57 L 95 09/02/18 14:41 09/02/18 14:41 09/02/18 14:41 09/02/18 14:41 09/02/18 09:00 Gen: nad Pulm: ctab w/o w/r/r CV: rrr w/o m/r/g Abd: +bs, s/nt/nd Ext: no c/c/e CBC, BMP 09/02/18 06:00 09/01/18 06:00 Problem List - Problems (1) UTI (urinary tract infection) Assessment/Plan: -urine culture growing serratia -continue rocephin Code(s): N39.0 - URINARY TRACT INFECTION, SITE NOT SPECIFIED Qualifiers: Urinary tract infection type: acute cystitis Hematuria presence: without hematuria Qualified Code(s): N30.00 - Acute cystitis without hematuria (2) Abdominal pain Assessment/Plan: -secondary to UTI -improving Code(s): R10.9 - UNSPECIFIED ABDOMINAL PAIN Qualifiers: Abdominal location: generalized Qualified Code(s): R10.84 - Generalized abdominal pain (3) Adenocarcinoma of right lung Assessment/Plan: -planning for repeat biopsy to see if candidate for immunotherapy -appreciate oncology assistance Code(s): C34.91 - MALIGNANT NEOPLASM OF UNSP PART OF RIGHT BRONCHUS OR LUNG (4) Paroxysmal A-fib Assessment/Plan: -continue metoprolol -rate controlled -poor candidate for anticoagulation Code(s): I48.0 - PAROXYSMAL ATRIAL FIBRILLATION (5) Chronic pain Assessment/Plan: -continue morphine Code(s): G89.29 - OTHER CHRONIC PAIN Qualifiers: Chronic pain type: chronic pain syndrome Qualified Code(s): G89.4 - Chronic pain syndrome (6) Constipation Assessment/Plan: -continue colace Code(s): K59.00 - CONSTIPATION, UNSPECIFIED (7) Neurogenic bladder Code(s): N31.9 - NEUROMUSCULAR DYSFUNCTION OF BLADDER, UNSPECIFIED (8) Paraplegia Code(s): G82.20 - PARAPLEGIA, UNSPECIFIED
[2018-09-03] MEDS: diazePAM 5 MG TABLET PO PRN ×2 (04:08→21:12)
[2018-09-03] MEDS: morphine SULFATE 10 MG/5 ML UNIT-DOSE CUP PO PRN ×5 (04:09→23:15)
[2018-09-03] MEDS ORDERED: DEXTROSE 5%-WATER - 50 ML IVPB ONE (08:45)
[2018-09-03] MEDS ORDERED: cefTRIAXone SODIUM 1 GM VIAL ONE (08:45)
[2018-09-03] MEDS: CEFTRIAXONE 1 GM in DEXTROSE 5%-WATER - 50 ML IVPB SCH (09:53)
[2018-09-03] MEDS: DOCUSATE SODIUM 100 MG CAPSULE (FP) PO SCH ×3 (09:53→19:16)
[2018-09-03] MEDS: ENOXAPARIN NA (PORCINE) 40 MG/0.4 ML DISP.SYRIN SQ SCH (09:53)
[2018-09-03] MEDS: METOPROLOL TARTRATE 25 MG TABLET (FP) PO SCH ×3 (09:59→21:11)
--- NOTE | 2018-09-03 11:00 | PN ---
Progress Note, Physician History of Present Illness: patient stable no new issues awaiting biopsy - Current Medication List Current Medications: Active Medications Diazepam (Valium -) 10 mg PO Q8H PRN PRN Reason: ANXIETY Last Admin: 09/03/18 04:08 Dose: 10 mg Docusate Sodium (Colace -) 100 mg PO TIDCM [facility] Last Admin: 09/03/18 09:53 Dose: 100 mg Enoxaparin Sodium (Lovenox -) 40 mg SQ DAILY [facility] [place] Last Admin: 09/03/18 09:53 Dose: 40 mg Ceftriaxone Sodium 1 gm/ (Dextrose) 50 mls @ 100 mls/hr IVPB DAILY [facility] [place]; Protocol Last Admin: 09/03/18 09:53 Dose: 100 mls/hr Metoprolol Tartrate (Lopressor -) 12.5 mg PO BID [facility] [place] Last Admin: 09/03/18 10:06 Dose: 12.5 mg Morphine Sulfate (Morphine 10 Mg/5 Ml Liquid) 10 mg PO Q4H PRN PRN Reason: PAIN LEVEL 7 - 10 Last Admin: 09/03/18 09:55 Dose: 10 mg - Objective Vital Signs: Vital Signs Temperature 98.3 F 09/03/18 06:00 Pulse Rate 54 L 09/03/18 06:00 Respiratory Rate 18 09/03/18 06:00 Blood Pressure 107/48 L 09/03/18 06:00 O2 Sat by Pulse Oximetry (%) 95 09/02/18 09:00 Constitutional: Yes: No Distress, Calm, Other (bed bound) Cardiovascular: Yes: Regular Rate and Rhythm Respiratory: Yes: Regular, CTA Bilaterally Gastrointestinal: Yes: Normal Bowel Sounds, Soft Musculoskeletal: Yes: Other Extremities: Yes: Other Neurological: Yes: Alert Psychiatric: Yes: Alert Labs: CBC, BMP 09/02/18 06:00 09/01/18 06:00 INR, PTT INR 0.97 (0.83-1.09) 09/02/18 06:00 Assessment/Plan Problem List - Problems (1) UTI (urinary tract infection) Code(s): N39.0 - URINARY TRACT INFECTION, SITE NOT SPECIFIED Qualifiers: Urinary tract infection type: site unspecified Hematuria presence: without hematuria Qualified Code(s): N39.0 - Urinary tract infection, site not specified (2) Adenocarcinoma of right lung Code(s): C34.91 - MALIGNANT NEOPLASM OF UNSP PART OF RIGHT BRONCHUS OR LUNG (3) Leukocytosis Code(s): D72.829 - ELEVATED WHITE BLOOD CELL COUNT, UNSPECIFIED (4) Paroxysmal A-fib Code(s): I48.0 - PAROXYSMAL ATRIAL FIBRILLATION (5) Neurogenic bladder Code(s): N31.9 - NEUROMUSCULAR DYSFUNCTION OF BLADDER, UNSPECIFIED (6) Paraplegia Code(s): G82.20 - PARAPLEGIA, UNSPECIFIED Assessment/Plan Complicated UTI Leukocytosis Neurogenic bladder Paraplegia T2 fracture plan continue current abx rest as per the team will stop abx tomorrow patient for biopsy
--- NOTE | 2018-09-03 15:03 | PN ---
Teaching Attending Note Name of Resident: Ashlie Addison ATTENDING PHYSICIAN STATEMENT I saw and evaluated the patient. I reviewed the resident's note and discussed the case with the resident. I agree with the resident's findings and plan as documented. SUBJECTIVE: Mr Valenzuela complains of chronic pain but it is unchanged. No cp, sob , n/v. OBJECTIVE: Last Vital Signs Temp Pulse Resp BP Pulse Ox 37.1 C 55 L 20 112/68 95 09/03/18 14:26 09/03/18 14:26 09/03/18 14:26 09/03/18 14:26 09/02/18 09:00 Gen: nad Pulm: ctab w/o w/r/r CV: rrr w/o m/r/g Abd: +bs, s/nt/nd Ext: no c/c/e (1) UTI (urinary tract infection) Assessment/Plan: -urine culture growing serratia -continue rocephin since planning for biopsy per ID -case d/w Dr Salazar Code(s): N39.0 - URINARY TRACT INFECTION, SITE NOT SPECIFIED Qualifiers: Urinary tract infection type: acute cystitis Hematuria presence: without hematuria Qualified Code(s): N30.00 - Acute cystitis without hematuria (2) Abdominal pain Assessment/Plan: -secondary to UTI -improving Code(s): R10.9 - UNSPECIFIED ABDOMINAL PAIN Qualifiers: Abdominal location: generalized Qualified Code(s): R10.84 - Generalized abdominal pain (3) Adenocarcinoma of right lung Assessment/Plan: -planning for repeat biopsy to see if candidate for immunotherapy -appreciate oncology assistance Code(s): C34.91 - MALIGNANT NEOPLASM OF UNSP PART OF RIGHT BRONCHUS OR LUNG (4) Paroxysmal A-fib Assessment/Plan: -continue metoprolol -rate controlled -poor candidate for anticoagulation Code(s): I48.0 - PAROXYSMAL ATRIAL FIBRILLATION (5) Chronic pain Assessment/Plan: -continue morphine Code(s): G89.29 - OTHER CHRONIC PAIN Qualifiers: Chronic pain type: chronic pain syndrome Qualified Code(s): G89.4 - Chronic pain syndrome (6) Constipation Assessment/Plan: -continue colace Code(s): K59.00 - CONSTIPATION, UNSPECIFIED (7) Neurogenic bladder Code(s): N31.9 - NEUROMUSCULAR DYSFUNCTION OF BLADDER, UNSPECIFIED (8) Paraplegia Code(s): G82.20 - PARAPLEGIA, UNSPECIFIED Problem List - Problems (1) UTI (urinary tract infection) Code(s): N39.0 - URINARY TRACT INFECTION, SITE NOT SPECIFIED Qualifiers: Urinary tract infection type: acute cystitis Hematuria presence: without hematuria Qualified Code(s): N30.00 - Acute cystitis without hematuria (2) Abdominal pain Code(s): R10.9 - UNSPECIFIED ABDOMINAL PAIN Qualifiers: Abdominal location: generalized Qualified Code(s): R10.84 - Generalized abdominal pain (3) Adenocarcinoma of right lung Code(s): C34.91 - MALIGNANT NEOPLASM OF UNSP PART OF RIGHT BRONCHUS OR LUNG (4) Paroxysmal A-fib Code(s): I48.0 - PAROXYSMAL ATRIAL FIBRILLATION (5) Chronic pain Code(s): G89.29 - OTHER CHRONIC PAIN Qualifiers: Chronic pain type: chronic pain syndrome Qualified Code(s): G89.4 - Chronic pain syndrome (6) Constipation Code(s): K59.00 - CONSTIPATION, UNSPECIFIED (7) Neurogenic bladder Code(s): N31.9 - NEUROMUSCULAR DYSFUNCTION OF BLADDER, UNSPECIFIED (8) Paraplegia Code(s): G82.20 - PARAPLEGIA, UNSPECIFIED
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
[2018-09-03] MEDS ORDERED: SENNOSIDES 8.6MG TABLET (FP) PO PRN (22:00)
--- NOTE | 2018-09-03 23:01 | PN ---
Progress Note (short form) - Note Progress Note: Patient seen and examined Feels well AFVSS Cor: RSR, No murmurs, No gallops Lungs: Clear to P&A Abd: Soft, Normal bowel sounds, No organomegaly Ext:paraplegic A/P 63 y/o patient with metastatic lung cancer, adenoca stage IV MRI brain neg. [id number]. ROS neg. IR guided biopsy for next gen sequencing for other mutation analysis discussed with patient who is in agreement
[2018-09-04] MEDS: morphine SULFATE 10 MG/5 ML UNIT-DOSE CUP PO PRN ×4 (03:57→23:00)
[2018-09-04] MEDS ORDERED: PT OWN MED DRAWER 7, Y5N ONE ×2 (05:59→22:12)
[2018-09-04] MEDS ORDERED: DEXTROSE 5%-WATER - 50 ML IVPB ONE (09:43)
[2018-09-04] MEDS ORDERED: cefTRIAXone SODIUM 1 GM VIAL ONE (09:43)
[2018-09-04] MEDS: CEFTRIAXONE 1 GM in DEXTROSE 5%-WATER - 50 ML IVPB SCH (10:00)
[2018-09-04] MEDS: METOPROLOL TARTRATE 25 MG TABLET (FP) PO SCH ×2 (10:01→21:28)
[2018-09-04] MEDS: DOCUSATE SODIUM 100 MG CAPSULE (FP) PO SCH ×3 (10:01→17:59)
--- NOTE | 2018-09-04 11:48 | PN ---
Progress Note, Physician History of Present Illness: stable no new issues - Current Medication List Current Medications: Active Medications Diazepam (Valium -) 10 mg PO Q8H PRN PRN Reason: ANXIETY Last Admin: 09/03/18 21:12 Dose: 10 mg Docusate Sodium (Colace -) 100 mg PO TIDCM [facility] Last Admin: 09/04/18 10:01 Dose: 100 mg Enoxaparin Sodium (Lovenox -) 40 mg SQ DAILY [facility] Last Admin: 09/03/18 09:53 Dose: 40 mg Ceftriaxone Sodium 1 gm/ (Dextrose) 50 mls @ 100 mls/hr IVPB DAILY [facility]; Protocol Last Admin: 09/04/18 10:00 Dose: 100 mls/hr Metoprolol Tartrate (Lopressor -) 12.5 mg PO BID [facility] Last Admin: 09/04/18 10:01 Dose: 12.5 mg Morphine Sulfate (Morphine 10 Mg/5 Ml Liquid) 10 mg PO Q4H PRN PRN Reason: PAIN LEVEL 7 - 10 Last Admin: 09/04/18 10:00 Dose: 10 mg Senna (Senna -) 2 tab PO HS PRN PRN Reason: CONSTIPATION Last Admin: 09/03/18 21:10 Dose: 2 tab - Objective Vital Signs: Vital Signs Temperature 98.6 F 09/04/18 05:53 Pulse Rate 62 09/04/18 05:53 Respiratory Rate 18 09/04/18 05:53 Blood Pressure 92/53 L 09/04/18 05:53 O2 Sat by Pulse Oximetry (%) 95 09/02/18 09:00 Constitutional: Yes: No Distress, Calm Respiratory: Yes: Regular, CTA Bilaterally Gastrointestinal: Yes: Normal Bowel Sounds, Soft Musculoskeletal: Yes: WNL Extremities: Yes: WNL Neurological: Yes: Alert, Oriented Psychiatric: Yes: Alert, Oriented Labs: CBC, BMP 09/02/18 06:00 09/01/18 06:00 INR, PTT INR 0.97 (0.83-1.09) 09/02/18 06:00 Assessment/Plan Problem List - Problems (1) UTI (urinary tract infection) Code(s): N39.0 - URINARY TRACT INFECTION, SITE NOT SPECIFIED Qualifiers: Urinary tract infection type: site unspecified Hematuria presence: without hematuria Qualified Code(s): N39.0 - Urinary tract infection, site not specified (2) Adenocarcinoma of right lung Code(s): C34.91 - MALIGNANT NEOPLASM OF UNSP PART OF RIGHT BRONCHUS OR LUNG (3) Leukocytosis Code(s): D72.829 - ELEVATED WHITE BLOOD CELL COUNT, UNSPECIFIED (4) Paroxysmal A-fib Code(s): I48.0 - PAROXYSMAL ATRIAL FIBRILLATION (5) Neurogenic bladder Code(s): N31.9 - NEUROMUSCULAR DYSFUNCTION OF BLADDER, UNSPECIFIED (6) Paraplegia Code(s): G82.20 - PARAPLEGIA, UNSPECIFIED Assessment/Plan Complicated UTI Leukocytosis Neurogenic bladder Paraplegia T2 fracture plan continue current abx rest as per the team will stop abx tomorrow post biopsy
--- NOTE | 2018-09-04 17:23 | PN ---
Teaching Attending Note Name of Resident: Ashlie Addison ATTENDING PHYSICIAN STATEMENT I saw and evaluated the patient. I reviewed the resident's note and discussed the case with the resident. I agree with the resident's findings and plan as documented. SUBJECTIVE: Mr Valenzuela has no new complaints. His abdominal pain is unchanged. No cp, sob, n/v. OBJECTIVE: Last Vital Signs Temp Pulse Resp BP Pulse Ox 36.9 C 57 L 18 105/52 L 97 09/04/18 15:10 09/04/18 15:10 09/04/18 15:10 09/04/18 15:10 09/04/18 13:22 Gen: nad Pulm: ctab w/o w/r/r CV: rrr w/o m/r/g Abd: +bs, s/nt/nd Ext: no c/c/e ASSESSMENT AND PLAN: (1) UTI (urinary tract infection) Assessment/Plan: -urine culture growing serratia -continue rocephin since planning for biopsy per ID -plan to transition to oral soon Code(s): N39.0 - URINARY TRACT INFECTION, SITE NOT SPECIFIED Qualifiers: Urinary tract infection type: acute cystitis Hematuria presence: without hematuria Qualified Code(s): N30.00 - Acute cystitis without hematuria (2) Abdominal pain Assessment/Plan: -secondary to UTI -improving Code(s): R10.9 - UNSPECIFIED ABDOMINAL PAIN Qualifiers: Abdominal location: generalized Qualified Code(s): R10.84 - Generalized abdominal pain (3) Adenocarcinoma of right lung Assessment/Plan: -planning for repeat biopsy today to see if candidate for immunotherapy -appreciate oncology assistance Code(s): C34.91 - MALIGNANT NEOPLASM OF UNSP PART OF RIGHT BRONCHUS OR LUNG (4) Paroxysmal A-fib Assessment/Plan: -continue metoprolol -rate controlled -poor candidate for anticoagulation Code(s): I48.0 - PAROXYSMAL ATRIAL FIBRILLATION (5) Chronic pain Assessment/Plan: -continue morphine Code(s): G89.29 - OTHER CHRONIC PAIN Qualifiers: Chronic pain type: chronic pain syndrome Qualified Code(s): G89.4 - Chronic pain syndrome (6) Constipation Assessment/Plan: -continue colace Code(s): K59.00 - CONSTIPATION, UNSPECIFIED (7) Neurogenic bladder Code(s): N31.9 - NEUROMUSCULAR DYSFUNCTION OF BLADDER, UNSPECIFIED (8) Paraplegia Code(s): G82.20 - PARAPLEGIA, UNSPECIFIED Problem List - Problems (1) UTI (urinary tract infection) Code(s): N39.0 - URINARY TRACT INFECTION, SITE NOT SPECIFIED Qualifiers: Urinary tract infection type: acute cystitis Hematuria presence: without hematuria Qualified Code(s): N30.00 - Acute cystitis without hematuria (2) Abdominal pain Code(s): R10.9 - UNSPECIFIED ABDOMINAL PAIN Qualifiers: Abdominal location: generalized Qualified Code(s): R10.84 - Generalized abdominal pain (3) Adenocarcinoma of right lung Code(s): C34.91 - MALIGNANT NEOPLASM OF UNSP PART OF RIGHT BRONCHUS OR LUNG (4) Paroxysmal A-fib Code(s): I48.0 - PAROXYSMAL ATRIAL FIBRILLATION (5) Chronic pain Code(s): G89.29 - OTHER CHRONIC PAIN Qualifiers: Chronic pain type: chronic pain syndrome Qualified Code(s): G89.4 - Chronic pain syndrome (6) Constipation Code(s): K59.00 - CONSTIPATION, UNSPECIFIED (7) Neurogenic bladder Code(s): N31.9 - NEUROMUSCULAR DYSFUNCTION OF BLADDER, UNSPECIFIED (8) Paraplegia Code(s): G82.20 - PARAPLEGIA, UNSPECIFIED
[2018-09-04] MEDS: diazePAM 5 MG TABLET PO PRN (21:28)
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
--- NOTE | 2018-09-04 23:13 | PN ---
Progress Note (short form) - Note Progress Note: Patient seen and examined Feels well s/p IR guided biopsy AFVSS Cor: RSR, No murmurs, No gallops Lungs: Clear to P&A Abd: Soft, Normal bowel sounds, No organomegaly Ext:No significant edema Labs/Meds reviewed A/P 63 y/o patient with metastatic lung cancer, adenoca stage IV MRI brain neg. [id number]. ROS neg. IR guided biopsy for next gen sequencing for other mutation analysis Discussed various options with this patient with poor performance status, advanced stage lung cnacer with comorbiditeias--paraplegia/UTIs, poor social support ? palliative single agent chemotherapy versus targeted therapy based on next gen sequencing understands treating him is a great challenge given above scenario and plliative care is a reasonable option Gave contact nos. to patient to follow up on results and f/u with Dr. Chambers Will discuss with PMD
[2018-09-05] MEDS: morphine SULFATE 10 MG/5 ML UNIT-DOSE CUP PO PRN ×4 (03:19→22:00)
[2018-09-05 07:13] LABS: HEMATOCRIT 41.8 % (35.4-49); HEMOGLOBIN 13.3 GM/dL (11.7-16.9); MCH 29.4 pg (25.7-33.7); MCHC 31.8 g/dl (32.0-35.9); MEAN CELL VOLUME 92.4 fl (80-96); PLATELET COUNT 471 K/MM3 (134-434); RBC 4.52 M/mm3 (4.00-5.60); RDW 15.5 % (11.9-15.9)
[2018-09-05] MEDS ORDERED: cefTRIAXone SODIUM 1 GM VIAL ONE (08:59)
[2018-09-05] MEDS ORDERED: DEXTROSE 5%-WATER - 50 ML IVPB ONE (08:59)
[2018-09-05] MEDS: DOCUSATE SODIUM 100 MG CAPSULE (FP) PO SCH ×3 (09:08→17:26)
[2018-09-05] MEDS: CEFTRIAXONE 1 GM in DEXTROSE 5%-WATER - 50 ML IVPB SCH (09:08)
[2018-09-05] MEDS: METOPROLOL TARTRATE 25 MG TABLET (FP) PO SCH ×2 (09:10→21:14)
[2018-09-05 09:38] LABS: BLOOD UREA NITROGEN 12 mg/dL (7-18); CHLORIDE 101 mmol/L (98-107); CREATININE 0.6 mg/dL (0.55-1.3); GLUCOSE,RANDOM 82 mg/dL (74-106); POTASSIUM 4.7 mmol/L (3.5-5.1); SODIUM 136 mmol/L (136-145)
[2018-09-05 09:39] LABS: ANION GAP 8 MMOL/L (8-16); CALCIUM 8.4 mg/dL (8.5-10.1); CO2 27 mmol/L (21-32)
--- NOTE | 2018-09-05 13:15 | PN ---
Progress Note, Physician History of Present Illness: no new issues had bm comfortable - Current Medication List Current Medications: Active Medications Diazepam (Valium -) 10 mg PO Q8H PRN PRN Reason: ANXIETY Last Admin: 09/04/18 21:28 Dose: 10 mg Docusate Sodium (Colace -) 100 mg PO TIDCM [facility] Last Admin: 09/05/18 12:52 Dose: 100 mg Enoxaparin Sodium (Lovenox -) 40 mg SQ DAILY [facility] Last Admin: 09/03/18 09:53 Dose: 40 mg Ceftriaxone Sodium 1 gm/ (Dextrose) 50 mls @ 100 mls/hr IVPB DAILY [facility]; Protocol Last Admin: 09/05/18 09:08 Dose: 100 mls/hr Metoprolol Tartrate (Lopressor -) 12.5 mg PO BID [facility] Last Admin: 09/05/18 09:10 Dose: 12.5 mg Morphine Sulfate (Morphine 10 Mg/5 Ml Liquid) 10 mg PO Q4H PRN PRN Reason: PAIN LEVEL 7 - 10 Last Admin: 09/05/18 09:08 Dose: 10 mg Senna (Senna -) 2 tab PO HS PRN PRN Reason: CONSTIPATION Last Admin: 09/03/18 21:10 Dose: 2 tab - Objective Vital Signs: Vital Signs Temperature 97.8 F 09/05/18 10:00 Pulse Rate 64 09/05/18 10:00 Respiratory Rate 18 09/05/18 10:00 Blood Pressure 101/61 09/05/18 10:00 O2 Sat by Pulse Oximetry (%) 97 09/04/18 21:00 Constitutional: Yes: No Distress, Calm, Other (bed bound) Cardiovascular: Yes: Regular Rate and Rhythm Respiratory: Yes: Regular, CTA Bilaterally Gastrointestinal: Yes: Normal Bowel Sounds, Soft Musculoskeletal: Yes: Other Extremities: Yes: Other Neurological: Yes: Alert, Oriented Psychiatric: Yes: Alert, Oriented Labs: CBC, BMP 09/05/18 06:00 09/05/18 06:00 INR, PTT INR 0.97 (0.83-1.09) 09/02/18 06:00 Assessment/Plan Problem List - Problems (1) UTI (urinary tract infection) Code(s): N39.0 - URINARY TRACT INFECTION, SITE NOT SPECIFIED Qualifiers: Urinary tract infection type: site unspecified Hematuria presence: without hematuria Qualified Code(s): N39.0 - Urinary tract infection, site not specified (2) Adenocarcinoma of right lung Code(s): C34.91 - MALIGNANT NEOPLASM OF UNSP PART OF RIGHT BRONCHUS OR LUNG (3) Leukocytosis Code(s): D72.829 - ELEVATED WHITE BLOOD CELL COUNT, UNSPECIFIED (4) Paroxysmal A-fib Code(s): I48.0 - PAROXYSMAL ATRIAL FIBRILLATION (5) Neurogenic bladder Code(s): N31.9 - NEUROMUSCULAR DYSFUNCTION OF BLADDER, UNSPECIFIED (6) Paraplegia Code(s): G82.20 - PARAPLEGIA, UNSPECIFIED Assessment/Plan Complicated UTI Leukocytosis Neurogenic bladder Paraplegia T2 fracture plan will stop all abx monitor off of abx post lung biopsy rest as per the team
--- NOTE | 2018-09-05 16:11 | PN ---
Progress Note, Physician Chief Complaint: Mr Valenzuela without complaint. No cp, sob, n/v. - Current Medication List Current Medications: Active Medications Diazepam (Valium -) 10 mg PO Q8H PRN PRN Reason: ANXIETY Last Admin: 09/04/18 21:28 Dose: 10 mg Docusate Sodium (Colace -) 100 mg PO TIDCM [facility] Last Admin: 09/05/18 12:52 Dose: 100 mg Enoxaparin Sodium (Lovenox -) 40 mg SQ DAILY [facility] Last Admin: 09/03/18 09:53 Dose: 40 mg Metoprolol Tartrate (Lopressor -) 12.5 mg PO BID [facility] Last Admin: 09/05/18 09:10 Dose: 12.5 mg Morphine Sulfate (Morphine 10 Mg/5 Ml Liquid) 10 mg PO Q4H PRN PRN Reason: PAIN LEVEL 7 - 10 Last Admin: 09/05/18 09:08 Dose: 10 mg Senna (Senna -) 2 tab PO HS PRN PRN Reason: CONSTIPATION Last Admin: 09/03/18 21:10 Dose: 2 tab - Objective Vital Signs: Vital Signs Temperature 36.9 C 09/05/18 14:00 Pulse Rate 64 09/05/18 14:00 Respiratory Rate 18 09/05/18 14:00 Blood Pressure 121/54 L 09/05/18 14:00 O2 Sat by Pulse Oximetry (%) 97 09/04/18 21:00 Constitutional: Yes: Well Nourished, No Distress, Calm Cardiovascular: Yes: Regular Rate and Rhythm. No: Gallop, Murmur, Rub Respiratory: Yes: Regular, CTA Bilaterally. No: Rales, Rhonchi, Wheezes Gastrointestinal: Yes: Normal Bowel Sounds, Soft. No: Distention, Tenderness Extremities: Yes: WNL Edema: No Labs: CBC, BMP 09/05/18 06:00 09/05/18 06:00 INR, PTT INR 0.97 (0.83-1.09) 09/02/18 06:00 Problem List - Problems (1) UTI (urinary tract infection) Code(s): N39.0 - URINARY TRACT INFECTION, SITE NOT SPECIFIED Qualifiers: Urinary tract infection type: acute cystitis Hematuria presence: without hematuria Qualified Code(s): N30.00 - Acute cystitis without hematuria (2) Abdominal pain Code(s): R10.9 - UNSPECIFIED ABDOMINAL PAIN Qualifiers: Abdominal location: generalized Qualified Code(s): R10.84 - Generalized abdominal pain (3) Adenocarcinoma of right lung Code(s): C34.91 - MALIGNANT NEOPLASM OF UNSP PART OF RIGHT BRONCHUS OR LUNG (4) Paroxysmal A-fib Code(s): I48.0 - PAROXYSMAL ATRIAL FIBRILLATION (5) Chronic pain Code(s): G89.29 - OTHER CHRONIC PAIN Qualifiers: Chronic pain type: chronic pain syndrome Qualified Code(s): G89.4 - Chronic pain syndrome (6) Constipation Code(s): K59.00 - CONSTIPATION, UNSPECIFIED (7) Neurogenic bladder Code(s): N31.9 - NEUROMUSCULAR DYSFUNCTION OF BLADDER, UNSPECIFIED (8) Paraplegia Code(s): G82.20 - PARAPLEGIA, UNSPECIFIED Assessment/Plan (1) UTI (urinary tract infection) Assessment/Plan: -case d/w ID -stop rocephin -monitor Code(s): N39.0 - URINARY TRACT INFECTION, SITE NOT SPECIFIED Qualifiers: Urinary tract infection type: acute cystitis Hematuria presence: without hematuria Qualified Code(s): N30.00 - Acute cystitis without hematuria (2) Abdominal pain Assessment/Plan: -resolved Code(s): R10.9 - UNSPECIFIED ABDOMINAL PAIN Qualifiers: Abdominal location: generalized Qualified Code(s): R10.84 - Generalized abdominal pain (3) Adenocarcinoma of right lung Assessment/Plan: -s/p biopsy -will d/w oncology about next step in care Code(s): C34.91 - MALIGNANT NEOPLASM OF UNSP PART OF RIGHT BRONCHUS OR LUNG (4) Paroxysmal A-fib Assessment/Plan: -continue metoprolol -rate controlled -poor candidate for anticoagulation Code(s): I48.0 - PAROXYSMAL ATRIAL FIBRILLATION (5) Chronic pain Assessment/Plan: -continue morphine Code(s): G89.29 - OTHER CHRONIC PAIN Qualifiers: Chronic pain type: chronic pain syndrome Qualified Code(s): G89.4 - Chronic pain syndrome (6) Constipation Assessment/Plan: -continue colace Code(s): K59.00 - CONSTIPATION, UNSPECIFIED (7) Neurogenic bladder Code(s): N31.9 - NEUROMUSCULAR DYSFUNCTION OF BLADDER, UNSPECIFIED (8) Paraplegia Code(s): G82.20 - PARAPLEGIA, UNSPECIFIED
[2018-09-06] MEDS: diazePAM 5 MG TABLET PO PRN (00:31)
[2018-09-06] MEDS: morphine SULFATE 10 MG/5 ML UNIT-DOSE CUP PO PRN ×4 (04:11→20:14)
--- NOTE | 2018-09-06 10:45 | DS ---
Physical Examination Vital Signs: Vital Signs Temperature 36.9 C 09/06/18 06:00 Pulse Rate 53 L 09/06/18 06:00 Respiratory Rate 20 09/06/18 06:00 Blood Pressure 124/54 L 09/06/18 06:00 O2 Sat by Pulse Oximetry (%) 97 09/05/18 21:00 Constitutional: Yes: Well Nourished, No Distress, Calm Cardiovascular: Yes: Regular Rate and Rhythm. No: Gallop, Murmur, Rub Respiratory: Yes: Regular, CTA Bilaterally. No: Rales, Rhonchi, Wheezes Gastrointestinal: Yes: Normal Bowel Sounds, Soft. No: Distention, Tenderness Extremities: Yes: WNL Edema: No Labs: CBC, BMP 09/05/18 06:00 09/05/18 06:00 Discharge Summary Reason For Visit: URINARY TRACT INFECTION Current Active Problems Abdominal pain (Acute) Ileus (Acute) UTI (urinary tract infection) (Acute) Hospital Course: (1) UTI (urinary tract infection) Code(s): N39.0 - URINARY TRACT INFECTION, SITE NOT SPECIFIED Qualifiers: Urinary tract infection type: acute cystitis Hematuria presence: without hematuria Qualified Code(s): N30.00 - Acute cystitis without hematuria (2) Abdominal pain Code(s): R10.9 - UNSPECIFIED ABDOMINAL PAIN Qualifiers: Abdominal location: generalized Qualified Code(s): R10.84 - Generalized abdominal pain (3) Adenocarcinoma of right lung Code(s): C34.91 - MALIGNANT NEOPLASM OF UNSP PART OF RIGHT BRONCHUS OR LUNG (4) Paroxysmal A-fib Code(s): I48.0 - PAROXYSMAL ATRIAL FIBRILLATION (5) Chronic pain Code(s): G89.29 - OTHER CHRONIC PAIN Qualifiers: Chronic pain type: chronic pain syndrome Qualified Code(s): G89.4 - Chronic pain syndrome (6) Constipation Code(s): K59.00 - CONSTIPATION, UNSPECIFIED (7) Neurogenic bladder Code(s): N31.9 - NEUROMUSCULAR DYSFUNCTION OF BLADDER, UNSPECIFIED (8) Paraplegia Code(s): G82.20 - PARAPLEGIA, UNSPECIFIED Mr Vaelnzuela is a 63 year old male who came in with UTI. He was admitted to the hospital and seen by ID. He was placed on rocephin and finished a full course. He was monitored 24 hours off of antibiotics and remained stable. He also underwent another biopsy of his lung in order to gain more tissue for special staining. Oncology following along, will take some time to result so results will be called to Mr Valenzuela as an outpatient and Dr Chambers can discuss if a candidate for further treatment. He will be discharged on stool softeners and low dose metoprolol. He has close telephone contact with Dr Kang as an outpatient. 32 minutes spent in preparation of this discharge Condition: Stable - Instructions Diet, Activity, Other Instructions: resume previous diet and activity Referrals: uJan Manuel Kang MD [Primary Care Provider] - Disposition: [facility]/HOME HEALTH CARE - Home Medications Comprehensive Discharge Medication List: Ambulatory Orders Diazepam [Valium] 10 mg PO TID PRN tablet MDD 30mg 06/17/18 Morphine 10 mg/5 ml Liquid [Morphine 10 mg/5 mL Liquid -] 10 mg PO Q4H #150 ml MDD 60mg 06/17/18 Docusate Sodium [Colace -] 100 mg PO TIDCM #90 capsule 09/06/18 Metoprolol Tartrate [Lopressor -] 12.5 mg PO BID #30 tablet 09/06/18 Sennosides [Senna -] 2 tab PO HS PRN #60 tablet 09/06/18
[2018-09-06] MEDS: DOCUSATE SODIUM 100 MG CAPSULE (FP) PO SCH ×3 (11:20→17:41)
[2018-09-06] MEDS: METOPROLOL TARTRATE 25 MG TABLET (FP) PO SCH ×2 (11:20→21:17)
[2018-09-06] MEDS: ENOXAPARIN NA (PORCINE) 40 MG/0.4 ML DISP.SYRIN SQ SCH (11:20)
--- NOTE | 2018-09-06 14:41 | PN ---
Progress Note, Physician History of Present Illness: c/o of pain all over the body clinically looks stable just does not feel good - Current Medication List Current Medications: Active Medications Diazepam (Valium -) 10 mg PO Q8H PRN PRN Reason: ANXIETY Last Admin: 09/06/18 00:31 Dose: 10 mg Docusate Sodium (Colace -) 100 mg PO TIDCM [facility] Last Admin: 09/06/18 13:25 Dose: 100 mg Enoxaparin Sodium (Lovenox -) 40 mg SQ DAILY [facility] Last Admin: 09/06/18 11:20 Dose: 40 mg Metoprolol Tartrate (Lopressor -) 12.5 mg PO BID [facility] Last Admin: 09/06/18 11:20 Dose: 12.5 mg Morphine Sulfate (Morphine 10 Mg/5 Ml Liquid) 10 mg PO Q4H PRN PRN Reason: PAIN LEVEL 7 - 10 Last Admin: 09/06/18 11:19 Dose: 10 mg Senna (Senna -) 2 tab PO HS PRN PRN Reason: CONSTIPATION Last Admin: 09/03/18 21:10 Dose: 2 tab - Objective Vital Signs: Vital Signs Temperature 98.7 F 09/06/18 10:00 Pulse Rate 79 09/06/18 10:00 Respiratory Rate 18 09/06/18 10:00 Blood Pressure 101/59 L 09/06/18 10:00 O2 Sat by Pulse Oximetry (%) 97 09/06/18 09:00 Constitutional: Yes: Calm, Anxious, Mild Distress Cardiovascular: Yes: Regular Rate and Rhythm Respiratory: Yes: Regular, CTA Bilaterally Gastrointestinal: Yes: Normal Bowel Sounds, Soft Musculoskeletal: Yes: Other Extremities: Yes: Other Neurological: Yes: Alert, Oriented Psychiatric: Yes: Alert, Oriented Labs: CBC, BMP 09/05/18 06:00 09/05/18 06:00 INR, PTT INR 0.97 (0.83-1.09) 09/02/18 06:00 Assessment/Plan Problem List - Problems (1) UTI (urinary tract infection) Code(s): N39.0 - URINARY TRACT INFECTION, SITE NOT SPECIFIED Qualifiers: Urinary tract infection type: site unspecified Hematuria presence: without hematuria Qualified Code(s): N39.0 - Urinary tract infection, site not specified (2) Adenocarcinoma of right lung Code(s): C34.91 - MALIGNANT NEOPLASM OF UNSP PART OF RIGHT BRONCHUS OR LUNG (3) Leukocytosis Code(s): D72.829 - ELEVATED WHITE BLOOD CELL COUNT, UNSPECIFIED (4) Paroxysmal A-fib Code(s): I48.0 - PAROXYSMAL ATRIAL FIBRILLATION (5) Neurogenic bladder Code(s): N31.9 - NEUROMUSCULAR DYSFUNCTION OF BLADDER, UNSPECIFIED (6) Paraplegia Code(s): G82.20 - PARAPLEGIA, UNSPECIFIED Assessment/Plan Complicated UTI Leukocytosis Neurogenic bladder Paraplegia T2 fracture plan stable off of abx rest as per the team
[2018-09-07] MEDS: morphine SULFATE 10 MG/5 ML UNIT-DOSE CUP PO PRN ×6 (00:28→23:00)
[2018-09-07] MEDS: diazePAM 5 MG TABLET PO PRN ×2 (00:30→22:15)
[2018-09-07] MEDS ORDERED: PT OWN MED DRAWER 7, Y5N ONE (05:21)
[2018-09-07] MEDS: DOCUSATE SODIUM 100 MG CAPSULE (FP) PO SCH ×3 (08:34→19:09)
[2018-09-07] MEDS: ENOXAPARIN NA (PORCINE) 40 MG/0.4 ML DISP.SYRIN SQ SCH (09:57)
[2018-09-07] MEDS: METOPROLOL TARTRATE 25 MG TABLET (FP) PO SCH ×2 (09:59→22:15)
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
--- NOTE | 2018-09-07 14:44 | PATH ---
Surgical Pathology Report Patient Name: LORELEI MARVIN Med. Rec. #: [id number] /Age/Gender: 1955 (Age: 63) / M Account: [id number] Location: [facility] MED/SURG Taken: 09/04/2018 Received: 09/04/2018 Reported: 09/07/2018 Physicians: Margy Call M.D. Smitha Mellacheruvu, M.D. Specimen(s) Received RIGHT UPPER LUNG MASS Clinical History Lung cancer, history of adenocarcinoma of lung Final Diagnosis LUNG, RIGHT, BIOPSY: FRAGMENTS OF BENIGN LUNG PARENCHYMA, FIBROADIPOSE TISSUE, AND SKELETAL MUSCLE. NO DEFINITIVE MALIGNANCY IDENTIFIED. Comment: Deeper levels have been examined. Prior material noted. Findings discussed with Dr. Smyth. Electronically Signed Mima Lee M.D. Gross Description Received in formalin labeled "right lung biopsy," is a 0.4 x 0.3 x 0.1 cm aggregate of camacho soft tissue fragments. The formalin is filtered and the specimen is entirely submitted in one cassette. DL/09/04/2018 saudi09/04/2018
--- NOTE | 2018-09-07 15:16 | PN ---
Teaching Attending Note Name of Resident: Ashlie Addison ATTENDING PHYSICIAN STATEMENT I saw and evaluated the patient. I reviewed the resident's note and discussed the case with the resident. I agree with the resident's findings and plan as documented. SUBJECTIVE: Mr Valenzuela is complaining that he has a lot of paperwork to do this morning but has no new physical complaints. Complains of abdominal pain but it is unchanged. No cp or sob. OBJECTIVE: Last Vital Signs Temp Pulse Resp BP Pulse Ox 37.0 C 55 L 18 101/50 L 94 L 09/07/18 13:36 09/07/18 13:36 09/07/18 13:36 09/07/18 13:36 09/07/18 09:00 Gen: nad Pulm: ctab w/o w/r/r CV: rrr w/o m/r/g Abd: +bs, s/nt/nd Ext: no c/c/e ASSESSMENT AND PLAN: (1) UTI (urinary tract infection) Assessment/Plan: -s/p full course of rocephin Code(s): N39.0 - URINARY TRACT INFECTION, SITE NOT SPECIFIED Qualifiers: Urinary tract infection type: acute cystitis Hematuria presence: without hematuria Qualified Code(s): N30.00 - Acute cystitis without hematuria (2) Abdominal pain Assessment/Plan: -chronic Code(s): R10.9 - UNSPECIFIED ABDOMINAL PAIN Qualifiers: Abdominal location: generalized Qualified Code(s): R10.84 - Generalized abdominal pain (3) Adenocarcinoma of right lung Assessment/Plan: -s/p biopsy -awaiting results, can be called by oncology to the patient Code(s): C34.91 - MALIGNANT NEOPLASM OF UNSP PART OF RIGHT BRONCHUS OR LUNG (4) Paroxysmal A-fib Assessment/Plan: -continue metoprolol -rate controlled -poor candidate for anticoagulation Code(s): I48.0 - PAROXYSMAL ATRIAL FIBRILLATION (5) Chronic pain Assessment/Plan: -continue morphine Code(s): G89.29 - OTHER CHRONIC PAIN Qualifiers: Chronic pain type: chronic pain syndrome Qualified Code(s): G89.4 - Chronic pain syndrome (6) Constipation Assessment/Plan: -continue colace Code(s): K59.00 - CONSTIPATION, UNSPECIFIED (7) Neurogenic bladder Code(s): N31.9 - NEUROMUSCULAR DYSFUNCTION OF BLADDER, UNSPECIFIED (8) Paraplegia Code(s): G82.20 - PARAPLEGIA, UNSPECIFIED Patient is currently disputing the discharge. Will continue current management. Will recheck labs in the am. CM/SW aware and discussing with home health services timing and safety of discharge. Problem List - Problems (1) UTI (urinary tract infection) Code(s): N39.0 - URINARY TRACT INFECTION, SITE NOT SPECIFIED Qualifiers: Urinary tract infection type: acute cystitis Hematuria presence: without hematuria Qualified Code(s): N30.00 - Acute cystitis without hematuria (2) Abdominal pain Code(s): R10.9 - UNSPECIFIED ABDOMINAL PAIN Qualifiers: Abdominal location: generalized Qualified Code(s): R10.84 - Generalized abdominal pain (3) Adenocarcinoma of right lung Code(s): C34.91 - MALIGNANT NEOPLASM OF UNSP PART OF RIGHT BRONCHUS OR LUNG (4) Paroxysmal A-fib Code(s): I48.0 - PAROXYSMAL ATRIAL FIBRILLATION (5) Chronic pain Code(s): G89.29 - OTHER CHRONIC PAIN Qualifiers: Chronic pain type: chronic pain syndrome Qualified Code(s): G89.4 - Chronic pain syndrome (6) Constipation Code(s): K59.00 - CONSTIPATION, UNSPECIFIED (7) Neurogenic bladder Code(s): N31.9 - NEUROMUSCULAR DYSFUNCTION OF BLADDER, UNSPECIFIED (8) Paraplegia Code(s): G82.20 - PARAPLEGIA, UNSPECIFIED
--- NOTE | 2018-09-07 17:37 | PN ---
Progress Note, Physician History of Present Illness: generalized pain says not feeling good looks comfortable off of abx - Current Medication List Current Medications: Active Medications Diazepam (Valium -) 10 mg PO Q8H PRN PRN Reason: ANXIETY Last Admin: 09/07/18 00:30 Dose: 10 mg Docusate Sodium (Colace -) 100 mg PO TIDCM [facility] Last Admin: 09/07/18 14:38 Dose: 100 mg Enoxaparin Sodium (Lovenox -) 40 mg SQ DAILY [facility] Last Admin: 09/07/18 09:57 Dose: 40 mg Metoprolol Tartrate (Lopressor -) 12.5 mg PO BID [facility] Last Admin: 09/07/18 09:59 Dose: Not Given Morphine Sulfate (Morphine 10 Mg/5 Ml Liquid) 10 mg PO Q4H PRN PRN Reason: PAIN LEVEL 7 - 10 Last Admin: 09/07/18 14:42 Dose: 10 mg Senna (Senna -) 2 tab PO HS PRN PRN Reason: CONSTIPATION Last Admin: 09/03/18 21:10 Dose: 2 tab - Objective Vital Signs: Vital Signs Temperature 98.6 F 09/07/18 13:36 Pulse Rate 55 L 09/07/18 13:36 Respiratory Rate 18 09/07/18 13:36 Blood Pressure 101/50 L 09/07/18 13:36 O2 Sat by Pulse Oximetry (%) 94 L 09/07/18 09:00 Constitutional: Yes: Calm, Mild Distress Cardiovascular: Yes: Regular Rate and Rhythm Respiratory: Yes: Regular, CTA Bilaterally Gastrointestinal: Yes: Normal Bowel Sounds, Soft Extremities: Yes: Other (contracted) Neurological: Yes: Alert, Oriented Psychiatric: Yes: Alert, Oriented Labs: CBC, BMP 09/05/18 06:00 09/05/18 06:00 INR, PTT INR 0.97 (0.83-1.09) 09/02/18 06:00 Assessment/Plan Problem List - Problems (1) UTI (urinary tract infection) Code(s): N39.0 - URINARY TRACT INFECTION, SITE NOT SPECIFIED Qualifiers: Urinary tract infection type: site unspecified Hematuria presence: without hematuria Qualified Code(s): N39.0 - Urinary tract infection, site not specified (2) Adenocarcinoma of right lung Code(s): C34.91 - MALIGNANT NEOPLASM OF UNSP PART OF RIGHT BRONCHUS OR LUNG (3) Leukocytosis Code(s): D72.829 - ELEVATED WHITE BLOOD CELL COUNT, UNSPECIFIED (4) Paroxysmal A-fib Code(s): I48.0 - PAROXYSMAL ATRIAL FIBRILLATION (5) Neurogenic bladder Code(s): N31.9 - NEUROMUSCULAR DYSFUNCTION OF BLADDER, UNSPECIFIED (6) Paraplegia Code(s): G82.20 - PARAPLEGIA, UNSPECIFIED Assessment/Plan Complicated UTI Leukocytosis Neurogenic bladder Paraplegia T2 fracture plan stable off of abx rest as per the team nutrition generalized support
[2018-09-08] MEDS: morphine SULFATE 10 MG/5 ML UNIT-DOSE CUP PO PRN ×4 (02:58→21:55)
[2018-09-08 07:38] LABS: BASO % 0.9 % (0-2.0); EOS % 3.7 % (0-4.5); HEMATOCRIT 41.1 % (35.4-49); HEMOGLOBIN 13.3 GM/dL (11.7-16.9); LYMPH % 14.8 % (8-40); MCH 29.4 pg (25.7-33.7); MCHC 32.3 g/dl (32.0-35.9); MEAN PLT VOLUME 9.5 fl (7.5-11.1); MONO % 10.3 % (3.8-10.2); NEUT % 70.3 % (42.8-82.8); PLATELET COUNT 591 K/MM3 (134-434); RBC 4.52 M/mm3 (4.00-5.60); RDW 15.5 % (11.9-15.9); WHITE BLOOD COUNT 10.7 K/mm3 (4.0-10.0)
[2018-09-08 08:22] LABS: ANION GAP 8 MMOL/L (8-16); BLOOD UREA NITROGEN 15 mg/dL (7-18); CALCIUM 8.8 mg/dL (8.5-10.1); CHLORIDE 101 mmol/L (98-107); CO2 26 mmol/L (21-32); CREATININE 0.6 mg/dL (0.55-1.3); GLUCOSE,RANDOM 83 mg/dL (74-106); PHOSPHOROUS 3.1 mg/dL (2.5-4.9); POTASSIUM 4.6 mmol/L (3.5-5.1); SODIUM 135 mmol/L (136-145)
[2018-09-08] MEDS: DOCUSATE SODIUM 100 MG CAPSULE (FP) PO SCH ×3 (09:44→17:19)
[2018-09-08] MEDS: METOPROLOL TARTRATE 25 MG TABLET (FP) PO SCH ×2 (09:45→21:55)
[2018-09-08] MEDS: ENOXAPARIN NA (PORCINE) 40 MG/0.4 ML DISP.SYRIN SQ SCH (09:45)
--- NOTE | 2018-09-08 12:21 | PN ---
Progress Note, Physician History of Present Illness: stable doing well - Current Medication List Current Medications: Active Medications Diazepam (Valium -) 10 mg PO Q8H PRN PRN Reason: ANXIETY Last Admin: 09/07/18 22:15 Dose: 10 mg Docusate Sodium (Colace -) 100 mg PO TIDCM [facility] Last Admin: 09/08/18 09:44 Dose: 100 mg Enoxaparin Sodium (Lovenox -) 40 mg SQ DAILY [facility] Last Admin: 09/08/18 09:45 Dose: 40 mg Metoprolol Tartrate (Lopressor -) 12.5 mg PO BID [facility] Last Admin: 09/08/18 09:45 Dose: Not Given Morphine Sulfate (Morphine 10 Mg/5 Ml Liquid) 10 mg PO Q4H PRN PRN Reason: PAIN LEVEL 7 - 10 Last Admin: 09/08/18 09:45 Dose: 10 mg Senna (Senna -) 2 tab PO HS PRN PRN Reason: CONSTIPATION Last Admin: 09/03/18 21:10 Dose: 2 tab - Objective Vital Signs: Vital Signs Temperature 98.2 F 09/08/18 09:43 Pulse Rate 62 09/08/18 09:43 Respiratory Rate 18 09/08/18 09:43 Blood Pressure 115/42 L 09/08/18 09:43 O2 Sat by Pulse Oximetry (%) 94 L 09/07/18 21:00 Constitutional: Yes: No Distress, Calm, Other (bed bound) Cardiovascular: Yes: Regular Rate and Rhythm Respiratory: Yes: Regular, CTA Bilaterally Gastrointestinal: Yes: Normal Bowel Sounds, Soft Musculoskeletal: Yes: Other Extremities: Yes: Other Neurological: Yes: Alert, Oriented Psychiatric: Yes: Alert, Oriented Labs: CBC, BMP 09/08/18 06:15 09/08/18 06:15 INR, PTT INR 0.97 (0.83-1.09) 09/02/18 06:00 Assessment/Plan Problem List - Problems (1) UTI (urinary tract infection) Code(s): N39.0 - URINARY TRACT INFECTION, SITE NOT SPECIFIED Qualifiers: Urinary tract infection type: site unspecified Hematuria presence: without hematuria Qualified Code(s): N39.0 - Urinary tract infection, site not specified (2) Adenocarcinoma of right lung Code(s): C34.91 - MALIGNANT NEOPLASM OF UNSP PART OF RIGHT BRONCHUS OR LUNG (3) Leukocytosis Code(s): D72.829 - ELEVATED WHITE BLOOD CELL COUNT, UNSPECIFIED (4) Paroxysmal A-fib Code(s): I48.0 - PAROXYSMAL ATRIAL FIBRILLATION (5) Neurogenic bladder Code(s): N31.9 - NEUROMUSCULAR DYSFUNCTION OF BLADDER, UNSPECIFIED (6) Paraplegia Code(s): G82.20 - PARAPLEGIA, UNSPECIFIED Assessment/Plan Complicated UTI Leukocytosis Neurogenic bladder Paraplegia T2 fracture plan stable off of abx rest as per the team nutrition generalized support
--- NOTE | 2018-09-08 14:55 | PN ---
Progress Note, Physician Chief Complaint: Mr Valenzuela complains of chronic abdominal pain. No cp, sob, n/v. - Current Medication List Current Medications: Active Medications Diazepam (Valium -) 10 mg PO Q8H PRN PRN Reason: ANXIETY Last Admin: 09/07/18 22:15 Dose: 10 mg Docusate Sodium (Colace -) 100 mg PO TIDCM [facility] Last Admin: 09/08/18 13:17 Dose: 100 mg Enoxaparin Sodium (Lovenox -) 40 mg SQ DAILY [facility] Last Admin: 09/08/18 09:45 Dose: 40 mg Metoprolol Tartrate (Lopressor -) 12.5 mg PO BID [facility] Last Admin: 09/08/18 09:45 Dose: Not Given Morphine Sulfate (Morphine 10 Mg/5 Ml Liquid) 10 mg PO Q4H PRN PRN Reason: PAIN LEVEL 7 - 10 Last Admin: 09/08/18 09:45 Dose: 10 mg Senna (Senna -) 2 tab PO HS PRN PRN Reason: CONSTIPATION Last Admin: 09/03/18 21:10 Dose: 2 tab - Objective Vital Signs: Vital Signs Temperature 36.6 C 09/08/18 13:15 Pulse Rate 74 09/08/18 13:15 Respiratory Rate 20 09/08/18 13:15 Blood Pressure 101/56 L 09/08/18 13:15 O2 Sat by Pulse Oximetry (%) 94 L 09/08/18 09:00 Constitutional: Yes: Well Nourished, No Distress, Calm Cardiovascular: Yes: Regular Rate and Rhythm. No: Gallop, Murmur, Rub Respiratory: Yes: Regular, CTA Bilaterally. No: Rales, Rhonchi, Wheezes Gastrointestinal: Yes: Normal Bowel Sounds, Soft. No: Distention, Tenderness Extremities: Yes: WNL Edema: No Labs: CBC, BMP 09/08/18 06:15 09/08/18 06:15 INR, PTT INR 0.97 (0.83-1.09) 09/02/18 06:00 Problem List - Problems (1) UTI (urinary tract infection) Code(s): N39.0 - URINARY TRACT INFECTION, SITE NOT SPECIFIED Qualifiers: Urinary tract infection type: acute cystitis Hematuria presence: without hematuria Qualified Code(s): N30.00 - Acute cystitis without hematuria (2) Abdominal pain Code(s): R10.9 - UNSPECIFIED ABDOMINAL PAIN Qualifiers: Abdominal location: generalized Qualified Code(s): R10.84 - Generalized abdominal pain (3) Adenocarcinoma of right lung Code(s): C34.91 - MALIGNANT NEOPLASM OF UNSP PART OF RIGHT BRONCHUS OR LUNG (4) Paroxysmal A-fib Code(s): I48.0 - PAROXYSMAL ATRIAL FIBRILLATION (5) Chronic pain Code(s): G89.29 - OTHER CHRONIC PAIN Qualifiers: Chronic pain type: chronic pain syndrome Qualified Code(s): G89.4 - Chronic pain syndrome (6) Constipation Code(s): K59.00 - CONSTIPATION, UNSPECIFIED (7) Neurogenic bladder Code(s): N31.9 - NEUROMUSCULAR DYSFUNCTION OF BLADDER, UNSPECIFIED (8) Paraplegia Code(s): G82.20 - PARAPLEGIA, UNSPECIFIED Assessment/Plan (1) UTI (urinary tract infection) Assessment/Plan: -s/p full course of rocephin Code(s): N39.0 - URINARY TRACT INFECTION, SITE NOT SPECIFIED Qualifiers: Urinary tract infection type: acute cystitis Hematuria presence: without hematuria Qualified Code(s): N30.00 - Acute cystitis without hematuria (2) Abdominal pain Assessment/Plan: -chronic Code(s): R10.9 - UNSPECIFIED ABDOMINAL PAIN Qualifiers: Abdominal location: generalized Qualified Code(s): R10.84 - Generalized abdominal pain (3) Adenocarcinoma of right lung Assessment/Plan: -s/p biopsy -awaiting results, can be called by oncology to the patient Code(s): C34.91 - MALIGNANT NEOPLASM OF UNSP PART OF RIGHT BRONCHUS OR LUNG (4) Paroxysmal A-fib Assessment/Plan: -continue metoprolol -rate controlled -poor candidate for anticoagulation Code(s): I48.0 - PAROXYSMAL ATRIAL FIBRILLATION (5) Chronic pain Assessment/Plan: -continue morphine Code(s): G89.29 - OTHER CHRONIC PAIN Qualifiers: Chronic pain type: chronic pain syndrome Qualified Code(s): G89.4 - Chronic pain syndrome (6) Constipation Assessment/Plan: -continue colace Code(s): K59.00 - CONSTIPATION, UNSPECIFIED (7) Neurogenic bladder Code(s): N31.9 - NEUROMUSCULAR DYSFUNCTION OF BLADDER, UNSPECIFIED (8) Paraplegia Code(s): G82.20 - PARAPLEGIA, UNSPECIFIED Patient appeals process has been evaluated, stable at this time for discharge home. Unable to set up home services until tomorrow, plan for discharge on 09/09
[2018-09-08] MEDS: diazePAM 5 MG TABLET PO PRN (21:57)
[2018-09-09] MEDS: morphine SULFATE 10 MG/5 ML UNIT-DOSE CUP PO PRN ×4 (04:17→22:27)
[2018-09-09] MEDS: DOCUSATE SODIUM 100 MG CAPSULE (FP) PO SCH ×3 (09:34→17:51)
[2018-09-09] MEDS: ENOXAPARIN NA (PORCINE) 40 MG/0.4 ML DISP.SYRIN SQ SCH (09:35)
[2018-09-09] MEDS: METOPROLOL TARTRATE 25 MG TABLET (FP) PO SCH ×2 (09:35→22:28)
--- NOTE | 2018-09-09 12:34 | PN ---
Progress Note, Physician History of Present Illness: doing well no well no issues - Current Medication List Current Medications: Active Medications Diazepam (Valium -) 10 mg PO Q8H PRN PRN Reason: ANXIETY Last Admin: 09/08/18 21:57 Dose: 10 mg Docusate Sodium (Colace -) 100 mg PO TIDCM [facility] Last Admin: 09/09/18 09:34 Dose: 100 mg Enoxaparin Sodium (Lovenox -) 40 mg SQ DAILY [facility] Last Admin: 09/09/18 09:35 Dose: 40 mg Metoprolol Tartrate (Lopressor -) 12.5 mg PO BID [facility] Last Admin: 09/09/18 09:35 Dose: Not Given Morphine Sulfate (Morphine 10 Mg/5 Ml Liquid) 10 mg PO Q4H PRN PRN Reason: PAIN LEVEL 7 - 10 Last Admin: 09/09/18 04:17 Dose: 10 mg Senna (Senna -) 2 tab PO HS PRN PRN Reason: CONSTIPATION Last Admin: 09/03/18 21:10 Dose: 2 tab - Objective Vital Signs: Vital Signs Temperature 97.8 F 09/09/18 10:00 Pulse Rate 62 09/09/18 10:00 Respiratory Rate 18 09/09/18 10:00 Blood Pressure 95/53 L 09/09/18 10:00 O2 Sat by Pulse Oximetry (%) 96 09/09/18 09:00 Constitutional: Yes: No Distress, Calm, Other (bed bound) Cardiovascular: Yes: Regular Rate and Rhythm Respiratory: Yes: Regular, CTA Bilaterally Gastrointestinal: Yes: Normal Bowel Sounds, Soft Musculoskeletal: Yes: WNL Extremities: Yes: Other Neurological: Yes: Alert, Oriented Psychiatric: Yes: Alert, Oriented Labs: CBC, BMP 09/08/18 06:15 09/08/18 06:15 INR, PTT INR 0.97 (0.83-1.09) 09/02/18 06:00 Assessment/Plan Problem List - Problems (1) UTI (urinary tract infection) Code(s): N39.0 - URINARY TRACT INFECTION, SITE NOT SPECIFIED Qualifiers: Urinary tract infection type: site unspecified Hematuria presence: without hematuria Qualified Code(s): N39.0 - Urinary tract infection, site not specified (2) Adenocarcinoma of right lung Code(s): C34.91 - MALIGNANT NEOPLASM OF UNSP PART OF RIGHT BRONCHUS OR LUNG (3) Leukocytosis Code(s): D72.829 - ELEVATED WHITE BLOOD CELL COUNT, UNSPECIFIED (4) Paroxysmal A-fib Code(s): I48.0 - PAROXYSMAL ATRIAL FIBRILLATION (5) Neurogenic bladder Code(s): N31.9 - NEUROMUSCULAR DYSFUNCTION OF BLADDER, UNSPECIFIED (6) Paraplegia Code(s): G82.20 - PARAPLEGIA, UNSPECIFIED Assessment/Plan Complicated UTI Leukocytosis Neurogenic bladder Paraplegia T2 fracture plan stable off of abx rest as per the team nutrition generalized support
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
[2018-09-09] MEDS: diazePAM 5 MG TABLET PO PRN (22:27)
[2018-09-10] MEDS: morphine SULFATE 10 MG/5 ML UNIT-DOSE CUP PO PRN ×2 (02:04→08:40)
[2018-09-10 06:35] LABS: HEMATOCRIT 42.4 % (35.4-49); HEMOGLOBIN 13.7 GM/dL (11.7-16.9); MCH 29.5 pg (25.7-33.7); MCHC 32.4 g/dl (32.0-35.9); MEAN CELL VOLUME 90.9 fl (80-96); MEAN PLT VOLUME 9.7 fl (7.5-11.1); PLATELET COUNT 583 K/MM3 (134-434); RBC 4.66 M/mm3 (4.00-5.60); RDW 15.6 % (11.9-15.9); WHITE BLOOD COUNT 10.3 K/mm3 (4.0-10.0)
[2018-09-10] MEDS: DOCUSATE SODIUM 100 MG CAPSULE (FP) PO SCH (08:41)
[2018-09-10 09:28] VITALS: BP 106/62; PULSE 62; TEMP 98.2
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
[2018-09-10] MEDS: METOPROLOL TARTRATE 25 MG TABLET (FP) PO SCH (09:49)
[2018-09-10] MEDS: ENOXAPARIN NA (PORCINE) 40 MG/0.4 ML DISP.SYRIN SQ SCH (09:49)
[2018-09-10] MEDS: diazePAM 5 MG TABLET PO PRN (09:58)
== END 2018-09-10 11:02 | disposition home health service (06) | DRG 690 ==
LOC: JER 15:22 → JERBED 08-28 01:10 → J7W 08-28 14:33
PROVIDERS: ADMIT Internal Medicine; ATTEND Hospitalist
PROC: 0BDC4ZX Extraction of Right Upper Lung Lobe, Percutaneous Endoscopic Approach, Diagnostic (ICD-10-PCS; principal; 2018-09-04)
DX: N39.0 Urinary tract infection, site not specified (principal); C34.91 Malignant neoplasm of unspecified part of right bronchus or lung; G82.20 Paraplegia, unspecified; I74.5 Embolism and thrombosis of iliac artery; J44.9 Chronic obstructive pulmonary disease, unspecified; N31.9 Neuromuscular dysfunction of bladder, unspecified; I48.0 Paroxysmal atrial fibrillation; R91.1 Solitary pulmonary nodule; F41.9 Anxiety disorder, unspecified; R19.7 Diarrhea, unspecified; G89.29 Other chronic pain; R10.84 Generalized abdominal pain; K76.89 Other specified diseases of liver; E83.39 Other disorders of phosphorus metabolism; N28.1 Cyst of kidney, acquired; K59.00 Constipation, unspecified; D72.829 Elevated white blood cell count, unspecified; M48.54XG Collapsed vertebra, not elsewhere classified, thoracic region, subsequent encounter for fracture with delayed healing; Z90.81 Acquired absence of spleen; Z74.01 Bed confinement status; Z87.891 Personal history of nicotine dependence
CPT/HCPCS: 32405; 36415; 70551-TC; 71045-TC-FY; 71250-TC; 74177-TC; 76098-TC-FY; 77012-TC; 80048; 80053; 81003; 81015; 83690; 83735; 84100; 85025; 85027; 85610; 85730; 86850; 86900; 86901; 87086; 87186; 87899; 88305-TC; 93005; 93010; 97161-GP; 99285-25; J0131; J7030

== ENCOUNTER 2019-02-11 11:51 | Emergency (ER) | payer OTHER, BC ==
[2019-02-11 12:29] VITALS: BMI 23.3
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
[2019-02-11] MEDS ORDERED: SODIUM CHLORIDE 1,000 ML IV STA (13:24)
[2019-02-11 15:09] LABS: HEMATOCRIT 48.1 % (35.4-49); HEMOGLOBIN 15.6 GM/dL (11.7-16.9); MCH 30.3 pg (25.7-33.7); MCHC 32.5 g/dl (32.0-35.9); MEAN CELL VOLUME 93.3 fl (80-96); MEAN PLT VOLUME 9.2 fl (7.5-11.1); PLATELET COUNT 506 K/MM3 (134-434); RBC 5.15 M/mm3 (4.00-5.60); RDW 13.8 % (11.9-15.9); WHITE BLOOD COUNT 14.3 K/mm3 (4.0-10.0)
[2019-02-11] MEDS ORDERED: ACETAMINOPHEN 1000 MG/100 ML VIAL (NON FORMULARY) IVPB ONE (15:10)
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
[2019-02-11] MEDS ORDERED: morphine CARPU-JECT 2 MG/1 ML DISP.SYRIN IVPUSH ONE (15:13)
[2019-02-11 15:15] LABS: ALBUMIN 2.9 g/dl (3.4-5.0); BILIRUBIN,TOTAL 0.6 mg/dL (0.2-1); CALCIUM 8.9 mg/dL (8.5-10.1); CREATININE 0.7 mg/dL (0.55-1.3); POTASSIUM 4.2 mmol/L (3.5-5.1); TOT PROT 7.4 g/dl (6.4-8.2)
[2019-02-11] MEDS ORDERED: morphine CARPU-JECT 4 MG/1 ML DISP.SYRIN IVPUSH ONE (15:16)
[2019-02-11] MEDS ORDERED: morphine SULFATE 4 MG/ML VIAL ONE (15:21)
[2019-02-11 15:57] LABS: EPI CELLS 9.6 /HPF (0-5/HPF); HYALINE CASTS 33 /lpf (0-8); PH,URINE 8.5 (5.0-8.0); URINE APPEARANCE CLOUDY; URINE BACTERIA 2040.4 /hpf (NEGATIVE); URINE BILIRUBIN NEGATIVE (NEGATIVE); URINE COLOR YELLOW; URINE GLUCOSE (UA) NEGATIVE (NEGATIVE); URINE KETONE NEGATIVE (NEGATIVE); URINE LEUK ESTERASE NEGATIVE (NEGATIVE); URINE NITRITE POSITIVE (NEGATIVE); URINE PROTEIN NEGATIVE (NEGATIVE); URINE UROBILINOGEN 0.2 mg/dL (0.2-1.0)
[2019-02-11] MEDS ORDERED: CEFTRIAXONE 2 GM-D5W BAG 2 GM/50 ML BAG IVPB ONE (16:54)
[2019-02-11] MEDS ORDERED: CEFTRIAXONE 2 GM/100 ML BAG IVPB ONE (17:16)
[2019-02-11 17:24] LABS: URINE RBC 10.7 /hpf (0-4); URINE WBC 33.4 /hpf (0-5); YEAST 0 (NEGATIVE)
[2019-02-11] MEDS ORDERED: SULFAMETHOXAZOLE/TRIMETHOPRIM 800MG/160MG D.S. TABLET PO ONE (19:22)
[2019-02-11] MEDS ORDERED: SULFAMETHOXAZOLE/TRIMETHOPRIM 800MG/160MG D.S. TABLET ONE (21:34)
[2019-02-11 21:53] VITALS: BP 105/68; PULSE 60; TEMP 97.9
--- NOTE | 2019-02-12 12:37 | EKG ---
Test Reason : Blood Pressure : / mmHG Vent. Rate : 063 BPM Atrial Rate : 063 BPM P-R Int : 142 ms QRS Dur : 080 ms QT Int : 418 ms P-R-T Axes : 068 071 081 degrees QTc Int : 427 ms NORMAL SINUS RHYTHM WHEN COMPARED WITH ECG OF 11-FEB-2019 12:05, NO SIGNIFICANT CHANGE WAS FOUND Confirmed by CHICHI PUTNAM MD ([id number]) on 02/12/2019 12:37:03 PM Referred By: Confirmed By:CHICHI PUTNAM MD
--- NOTE | 2019-02-16 12:49 | EKG ---
Test Reason : Blood Pressure : / mmHG Vent. Rate : 060 BPM Atrial Rate : 060 BPM P-R Int : 144 ms QRS Dur : 084 ms QT Int : 424 ms P-R-T Axes : 069 073 084 degrees QTc Int : 424 ms NORMAL SINUS RHYTHM NORMAL ECG Confirmed by Alejandro Gudino MD ([id number]) on 02/16/2019 12:49:24 PM Referred By: Confirmed By:Alejandro Gudino MD
== END 2019-02-11 21:47 | disposition home or self-care (01) ==
LOC: JER 11:51
PROC: 3E0337Z Introduction of Electrolytic and Water Balance Substance into Peripheral Vein, Percutaneous Approach (ICD-10-PCS; principal; 2019-02-11)
PROC: 3E03329 Introduction of Other Anti-infective into Peripheral Vein, Percutaneous Approach (ICD-10-PCS; 2019-02-11)
PROC: 3E033NZ Introduction of Analgesics, Hypnotics, Sedatives into Peripheral Vein, Percutaneous Approach (ICD-10-PCS; 2019-02-11)
DX: N39.0 Urinary tract infection, site not specified (principal); I48.0 Paroxysmal atrial fibrillation; C34.91 Malignant neoplasm of unspecified part of right bronchus or lung; J44.9 Chronic obstructive pulmonary disease, unspecified; G82.20 Paraplegia, unspecified; N31.9 Neuromuscular dysfunction of bladder, unspecified; Z74.01 Bed confinement status
CPT/HCPCS: 36415; 74177-TC; 80053; 81003; 84484; 85027; 87040; 87086; 93005; 93010; 99283-25; J7030

== ENCOUNTER 2019-06-14 11:56 | Observation (INO) | payer OTHER, BC ==
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
[2019-06-14] MEDS ORDERED: morphine CARPU-JECT 4 MG/1 ML DISP.SYRIN IVPUSH ONE (14:37)
[2019-06-14] MEDS ORDERED: morphine SULFATE 4 MG/ML VIAL ONE (14:50)
[2019-06-14 15:04] LABS: BASO % 0.2 % (0-2.0); EOS % 0.7 % (0-4.5); HEMATOCRIT 41.5 % (35.4-49); HEMOGLOBIN 13.7 GM/dL (11.7-16.9); LYMPH % 9.1 % (8-40); MCH 31.5 pg (25.7-33.7); MEAN CELL VOLUME 95.4 fl (80-96); MEAN PLT VOLUME 8.7 fl (7.5-11.1); MONO % 7.7 % (3.8-10.2); NEUT % 82.3 % (42.8-82.8); PLATELET COUNT 503 K/MM3 (134-434); RBC 4.35 M/mm3 (4.00-5.60); RDW 14.7 % (11.9-15.9); WHITE BLOOD COUNT 14.7 K/mm3 (4.0-10.0)
[2019-06-14 15:18] LABS: INR 0.97 (0.83-1.09); PROTHROMBIN TIME (PATIENT) 11.5 SEC (9.7-13.0)
[2019-06-14 15:20] LABS: ACTIVATED PTT 34.5 SECONDS (25.2-36.5)
[2019-06-14 15:45] LABS: ALBUMIN 2.6 g/dl (3.4-5.0); BILIRUBIN,TOTAL 0.8 mg/dL (0.2-1); CALCIUM 8.4 mg/dL (8.5-10.1); CREATININE 0.5 mg/dL (0.55-1.3)
[2019-06-14 15:57] LABS: POTASSIUM 4.3 mmol/L (3.5-5.1)
[2019-06-14 16:04] LABS: BLOOD UREA NITROGEN 2.6 mg/dL (7-18)
--- NOTE | 2019-06-14 16:10 | EKG ---
Test Reason : Blood Pressure : / mmHG Vent. Rate : 076 BPM Atrial Rate : 076 BPM P-R Int : 106 ms QRS Dur : 072 ms QT Int : 392 ms P-R-T Axes : 054 071 079 degrees QTc Int : 441 ms SINUS RHYTHM WITH SHORT DE OTHERWISE NORMAL ECG WHEN COMPARED WITH ECG OF 11-FEB-2019 15:17, DE INTERVAL HAS DECREASED Confirmed by JAQUAN DEXTER MD ([id number]) on 06/14/2019 4:10:09 PM Referred By: Confirmed By:JAQUAN DEXTER MD
[2019-06-14] MEDS ORDERED: SODIUM CHLORIDE 0.9% 1000 ML INFUS.BAG IV ONE (17:16)
[2019-06-14] MEDS ORDERED: morphine SULFATE 10 MG/5 ML UNIT-DOSE CUP PO ONE (17:22)
[2019-06-14] MEDS ORDERED: morphine SULFATE 10 MG/5 ML UNIT-DOSE CUP ONE (17:36)
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
[2019-06-14] MEDS ORDERED: SODIUM CHLORIDE 1,000 ML IV SCH (18:30)
[2019-06-14] MEDS ORDERED: diazePAM 5 MG TABLET PO ONE (18:50)
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
[2019-06-14 21:11] LABS: EPI CELLS 2.3 /HPF (0-5/HPF); HYALINE CASTS 2 /lpf (0-8); URINE APPEARANCE CLEAR; URINE BACTERIA 2.6 /hpf (NEGATIVE); URINE BILIRUBIN NEGATIVE (NEGATIVE); URINE COLOR YELLOW; URINE GLUCOSE (UA) NEGATIVE (NEGATIVE); URINE KETONE NEGATIVE (NEGATIVE); URINE LEUK ESTERASE TRACE (NEGATIVE); URINE NITRITE NEGATIVE (NEGATIVE); URINE PROTEIN NEGATIVE (NEGATIVE); URINE RBC 1 /hpf (0-4); URINE UROBILINOGEN 0.2 mg/dL (0.2-1.0); URINE WBC 3 /hpf (0-5)
[2019-06-14] MEDS ORDERED: HEPARIN NA (PORCINE) 5,000 UNITS/ML 1ML VIAL SQ SCH (22:00)
[2019-06-14] MEDS ORDERED: ACETAMINOPHEN 1000 MG/100 ML VIAL (NON FORMULARY) IVPB ONE (22:00)
[2019-06-14] MEDS ORDERED: HEPARIN NA (PORCINE) 5,000 UNITS/ML 1ML VIAL ONE (23:19)
[2019-06-14] MEDS: HEPARIN NA (PORCINE) 5,000 UNITS/ML 1ML VIAL SQ SCH (23:27)
[2019-06-14] MEDS: BACITRACIN 15 GM TUBE TOPICAL OINTMENT TP SCH (23:27)
[2019-06-15 03:05] VITALS: BMI 20.2
[2019-06-15] MEDS: HEPARIN NA (PORCINE) 5,000 UNITS/ML 1ML VIAL SQ SCH ×4 (06:52→22:48)
[2019-06-15] MEDS: NYSTATIN 100000 UNIT/GM TOPICAL OINTMENT 15 GM TUBE TP SCH (06:52)
[2019-06-15] MEDS: morphine SULFATE 10 MG/5 ML UNIT-DOSE CUP PO PRN ×3 (06:59→22:28)
[2019-06-15 08:29] LABS: EOS % 0.5 % (0-4.5); HEMATOCRIT 37.8 % (35.4-49); HEMOGLOBIN 12.7 GM/dL (11.7-16.9); LYMPH % 4.2 % (8-40); MCH 32.2 pg (25.7-33.7); MCHC 33.7 g/dl (32.0-35.9); MEAN CELL VOLUME 95.7 fl (80-96); MEAN PLT VOLUME 9.1 fl (7.5-11.1); MONO % 7.9 % (3.8-10.2); NEUT % 87.4 % (42.8-82.8); PLATELET COUNT 478 K/MM3 (134-434); RBC 3.95 M/mm3 (4.00-5.60); RDW 14.9 % (11.9-15.9); WHITE BLOOD COUNT 15.1 K/mm3 (4.0-10.0)
[2019-06-15 08:52] LABS: ALBUMIN 2.3 g/dl (3.4-5.0); BLOOD UREA NITROGEN 4.6 mg/dL (7-18); CREATININE 0.5 mg/dL (0.55-1.3); PHOSPHOROUS 1.8 mg/dL (2.5-4.9); POTASSIUM 4.1 mmol/L (3.5-5.1); TOT PROT 5.9 g/dl (6.4-8.2)
[2019-06-15] MEDS: metoPROLOL SUCCINATE 25 MG TAB.SR.24H (FP) PO SCH (10:01)
--- NOTE | 2019-06-15 15:13 | PN ---
Physical Exam: SUBJECTIVE: Patient seen and examined. pt complaining of abdominal pain 5/10 and leg pain OBJECTIVE: Vital Signs Period Temp Pulse Resp BP Sys/Roche Pulse Ox Last 24 Hr 97.9 F-99.3 F 84-89 16-20 111-136/54-60 96-96 GENERAL: Awake, alert, and fully oriented, in no acute distress. HEAD: Normal with no signs of trauma. EYES: Pupils equal, round and reactive to light, extraocular movements intact, sclera anicteric, conjunctiva clear. No lid lag. EARS, NOSE, THROAT: oropharynx clear without exudates. Moist mucous membranes. LUNGS: Breath sounds equal, clear to auscultation bilaterally. No wheezes, and no crackles. No accessory muscle use. HEART: Regular rate and rhythm, normal S1 and S2 without murmur, rub or gallop. ABDOMEN: Soft, nontender, mildly distended, normoactive bowel sounds, no guarding, no rebound, no masses. No hepatomegaly or splenomegaly. MUSCULOSKELETAL: Normal range of motion at all joints. No bony deformities or tenderness. No CVA tenderness. UPPER EXTREMITIES: 2+ pulses, warm, well-perfused. No cyanosis. No clubbing. No peripheral edema. LOWER EXTREMITIES: 2+ pulses, warm, well-perfused. BLE significantly atrophied with splint around left knee and leg, distal pulses present NEUROLOGICAL: Cranial nerves II-XII intact. Normal speech. Normal gait. PSYCHIATRIC: Cooperative. Good eye contact. Appropriate mood and affect. SKIN: Warm, dry and scaly, with small lesion in left foot with fungal rash under toe Laboratory Results - last 24 hr 06/14/19 06/14/19 06/14/19 14:33 14:33 14:33 WBC 14.7 H RBC 4.35 Hgb 13.7 Hct 41.5 MCV 95.4 MCH 31.5 MCHC 33.0 RDW 14.7 Plt Count 503 H MPV 8.7 Absolute Neuts (auto) 12.1 H Neutrophils % 82.3 Lymphocytes % 9.1 D Monocytes % 7.7 Eosinophils % 0.7 D Basophils % 0.2 Nucleated RBC % 0 PT with INR INR PTT (Actin FS) Sodium 134 L Potassium 4.3 Chloride 99 Carbon Dioxide 22 Anion Gap 13 BUN 2.6 L* Creatinine 0.5 L Est GFR (CKD-EPI)AfAm 130.88 Est GFR (CKD-EPI)NonAf 112.92 Random Glucose 82 Calcium 8.4 L Phosphorus Magnesium Total Bilirubin 0.8 AST 25 ALT 19 Alkaline Phosphatase 138 H Total Protein 7.0 Albumin 2.6 L Urine Color Urine Appearance Urine pH Ur Specific [place] Urine Protein Urine Glucose (UA) Urine Ketones Urine Blood Urine Nitrite Urine Bilirubin Urine Urobilinogen Ur Leukocyte Esterase Urine WBC (Auto) Urine RBC (Auto) Urine Casts (Auto) U Epithel Cells (Auto) Urine Bacteria (Auto) Blood Type Cancelled Antibody Screen Cancelled 06/14/19 06/14/19 06/15/19 14:33 20:33 07:41 WBC 15.1 H RBC 3.95 L Hgb 12.7 Hct 37.8 MCV 95.7 MCH 32.2 MCHC 33.7 RDW 14.9 Plt Count 478 H MPV 9.1 Absolute Neuts (auto) 13.2 H Neutrophils % 87.4 H Lymphocytes % 4.2 L D Monocytes % 7.9 Eosinophils % 0.5 Basophils % 0.0 Nucleated RBC % 0 PT with INR 11.50 INR 0.97 PTT (Actin FS) 34.5 Sodium Potassium Chloride Carbon Dioxide Anion Gap BUN Creatinine Est GFR (CKD-EPI)AfAm Est GFR (CKD-EPI)NonAf Random Glucose Calcium Phosphorus Magnesium Total Bilirubin AST ALT Alkaline Phosphatase Total Protein Albumin Urine Color Yellow Urine Appearance Clear Urine pH 6.0 D Ur Specific [place] 1.004 L Urine Protein Negative Urine Glucose (UA) Negative Urine Ketones Negative Urine Blood Negative Urine Nitrite Negative Urine Bilirubin Negative Urine Urobilinogen 0.2 Ur Leukocyte Esterase Trace Urine WBC (Auto) 3 Urine RBC (Auto) 1 Urine Casts (Auto) 2 U Epithel Cells (Auto) 2.3 Urine Bacteria (Auto) 2.6 Blood Type Antibody Screen 06/15/19 07:41 WBC RBC Hgb Hct MCV MCH MCHC RDW Plt Count MPV Absolute Neuts (auto) Neutrophils % Lymphocytes % Monocytes % Eosinophils % Basophils % Nucleated RBC % PT with INR INR PTT (Actin FS) Sodium 136 Potassium 4.1 Chloride 105 Carbon Dioxide 24 Anion Gap 7 L BUN 4.6 L Creatinine 0.5 L Est GFR (CKD-EPI)AfAm 130.88 Est GFR (CKD-EPI)NonAf 112.92 Random Glucose 87 Calcium 8.0 L Phosphorus 1.8 L Magnesium 2.0 Total Bilirubin 1.0 AST 13 L ALT 16 Alkaline Phosphatase 120 H Total Protein 5.9 L Albumin 2.3 L Urine Color Urine Appearance Urine pH Ur Specific [place] Urine Protein Urine Glucose (UA) Urine Ketones Urine Blood Urine Nitrite Urine Bilirubin Urine Urobilinogen Ur Leukocyte Esterase Urine WBC (Auto) Urine RBC (Auto) Urine Casts (Auto) U Epithel Cells (Auto) Urine Bacteria (Auto) Blood Type Antibody Screen Active Medications Generic Name Dose Route Start Last Admin Trade Name Freq PRN Reason Stop Dose Admin Bacitracin 1 applic 06/14/19 22:00 06/14/19 23:27 Bacitracin - TP Not Given HS [facility] Heparin Sodium (Porcine) 5,000 unit 06/14/19 22:00 06/15/19 14:04 Heparin - SQ Not Given TID [facility] Metoprolol Succinate 25 mg 06/15/19 10:00 06/15/19 10:01 Toprol Xl - PO Not Given DAILY [facility] Morphine Sulfate 10 mg 06/14/19 18:49 06/15/19 14:08 Morphine 10 Mg/5 Ml Liquid PO 10 mg Q8H PRN Administration PAIN LEVEL 7 - 10 Nystatin 1 applic 06/15/19 07:00 06/15/19 06:52 Mycostatin Ointment - TP Not Given AM [facility] ASSESSMENT/PLAN: 64 y/o M with PMH T4 spinal cord transection with paraplegia, neurogenic bladder, recurrent UTIs (admitted at [facility]), COPD(though pt denies such history) , chronic pain, splenectomy, adenocarcinoma of R lung admitted for leg fracture. L TIb/Fib fx s/p cast in ED by Dr Browning f/u with ortho as out pt Pt has 24h home services via [facility] Leukocytosis no clear source WBC 15.1 today pt endorsed abdominal pain. no BM since one day bowel regimen started. pt has hx of recurrent UTI poss due to neurogenic bladder pt denies any fever, chills Urine culture pending No abx for now as pt does not appear toxic monitor for signs of systemic infection chronic chest and upper back pain EKG with sinus rhythm will cont home pain meds fungal foot rash nystatin cream DVT PPX heparin TID Visit type - Emergency Visit Emergency Visit: Yes ED Registration Date: 06/14/19 Care time: The patient presented to the Emergency Department on the above date and was hospitalized for further evaluation of their emergent condition. - New Patient This patient is new to me today: No - Critical Care Critical Care patient: No - Discharge Referral Referred to [facility] Med P.C.: No ATTENDING PHYSICIAN STATEMENT I saw and evaluated the patient. I reviewed the resident's note and discussed the case with the resident. I agree with the resident's findings and plan as documented. SUBJECTIVE: OBJECTIVE: ASSESSMENT AND PLAN:
[2019-06-15] MEDS ORDERED: SENNOSIDES 8.6MG TABLET (FP) PO ONE (15:15)
[2019-06-15] MEDS ORDERED: POTASSIUM PHOSPHATE 30 MM in SODIUM CHLORIDE 500 ML IVPB ONE (15:17)
[2019-06-15] MEDS ORDERED: LIDOCAINE 5% TOPICAL PATCH TP ONE (15:17)
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
[2019-06-15] MEDS: BACITRACIN 15 GM TUBE TOPICAL OINTMENT TP SCH (22:28)
[2019-06-15] MEDS: LIDOCAINE PATCH REMOVAL MC SCH (22:28)
[2019-06-16] MEDS: morphine SULFATE 10 MG/5 ML UNIT-DOSE CUP PO PRN ×2 (05:48→13:59)
[2019-06-16] MEDS: HEPARIN NA (PORCINE) 5,000 UNITS/ML 1ML VIAL SQ SCH ×3 (06:24→21:08)
[2019-06-16] MEDS: NYSTATIN 100000 UNIT/GM TOPICAL OINTMENT 15 GM TUBE TP SCH (06:30)
[2019-06-16 09:07] LABS: BASO % 0.6 % (0-2.0); EOS % 0.3 % (0-4.5); HEMATOCRIT 36.2 % (35.4-49); LYMPH % 3.8 % (8-40); MCH 32.4 pg (25.7-33.7); MCHC 33.3 g/dl (32.0-35.9); MEAN CELL VOLUME 97.3 fl (80-96); MEAN PLT VOLUME 9.2 fl (7.5-11.1); MONO % 6.7 % (3.8-10.2); NEUT % 88.6 % (42.8-82.8); PLATELET COUNT 496 K/MM3 (134-434); RBC 3.72 M/mm3 (4.00-5.60); RDW 14.8 % (11.9-15.9); WHITE BLOOD COUNT 24.6 K/mm3 (4.0-10.0)
--- NOTE | 2019-06-16 09:35 | PN ---
Progress Note (short form) - Note Progress Note: Ortho Pt seen and examined s/p left proximal tib/fib fx, splint intact Selected Entries 06/16/19 05:57 Temperature 99.8 F H Pulse Rate 96 H Respiratory 18 Rate Blood Pressure 113/47 L well padded splint intact a/p maintain splint ok to d/c from ortho pov f/u in 2 weeks d/w Dr. Browning
[2019-06-16 09:56] LABS: CALCIUM 7.9 mg/dL (8.5-10.1); CREATININE 0.6 mg/dL (0.55-1.3); POTASSIUM 4.1 mmol/L (3.5-5.1)
[2019-06-16 10:39] LABS: BLOOD UREA NITROGEN 2.9 mg/dL (7-18)
[2019-06-16] MEDS: DOCUSATE SODIUM 100 MG CAPSULE (FP) PO SCH (10:40)
[2019-06-16] MEDS: metoPROLOL SUCCINATE 25 MG TAB.SR.24H (FP) PO SCH (10:41)
[2019-06-16] MEDS ORDERED: PNEUMOC 13-VAL CONJ-DIP CRM/PF 0.5 ML DISP.SYRIN IM ONE (11:00)
[2019-06-16 11:31] LABS: ANISOCYTOSIS 1+; MACROCYTOSIS 1+; OVALOCYTE 1+; PLATELET ESTIMATE INCREASED; TARGET CELLS 1+
[2019-06-16] MEDS ORDERED: CEFTRIAXONE 1 GM in DEXTROSE 5%-WATER - 50 ML IVPB SCH (12:15)
[2019-06-16] MEDS: POLYETHYLENE GLYCOL 3350 119 GM BTL PO SCH ×2 (13:20→21:08)
--- NOTE | 2019-06-16 14:33 | PN ---
Physical Exam: SUBJECTIVE: Patient seen and examined. pt endorsed not feeling too well. when pressed for more info pt was dismissive OBJECTIVE: Vital Signs Period Temp Pulse Resp BP Sys/Roche Pulse Ox Last 24 Hr 98.2 F-99.8 F 75-117 17-20 98-128/47-56 GENERAL: Awake, alert, and fully oriented, in no acute distress. HEAD: Normal with no signs of trauma. EYES: Pupils equal, round and reactive to light, extraocular movements intact, sclera anicteric, conjunctiva clear. No lid lag. EARS, NOSE, THROAT: oropharynx clear without exudates. Moist mucous membranes. LUNGS: Breath sounds equal, clear to auscultation bilaterally. No wheezes, and no crackles. No accessory muscle use. HEART: Regular rate and rhythm, normal S1 and S2 without murmur, rub or gallop. ABDOMEN: Soft, nontender, mildly distended, normoactive bowel sounds, no guarding, no rebound, no masses. No hepatomegaly or splenomegaly. UPPER EXTREMITIES: 2+ pulses, warm, well-perfused. No cyanosis. No clubbing. No peripheral edema. LOWER EXTREMITIES: 2+ pulses, warm, well-perfused. BLE significantly atrophied with splint around left knee and leg, distal pulses present NEUROLOGICAL: Cranial nerves II-XII intact. Normal speech. Normal gait. SKIN: Warm, dry and scaly, with small lesion in left foot with fungal rash under toe Laboratory Results - last 24 hr 06/16/19 06/16/19 08:18 08:18 WBC 24.6 H RBC 3.72 L Hgb 12.0 Hct 36.2 MCV 97.3 H MCH 32.4 MCHC 33.3 RDW 14.8 Plt Count 496 H MPV 9.2 Absolute Neuts (auto) 21.8 H Neutrophils % 88.6 H Neutrophils % (Manual) 89.8 H Band Neutrophils % 3.1 Lymphocytes % 3.8 L Lymphocytes % (Manual) 0.0 L Monocytes % 6.7 Monocytes % (Manual) 6 Eosinophils % 0.3 Eosinophils % (Manual) 0.0 D Basophils % 0.6 D Basophils % (Manual) 0.0 Myelocytes % (Man) 0 D Promyelocytes % (Man) 0 Blast Cells % (Manual) 0 Nucleated RBC % 0 Metamyelocytes 0 D Hypochromia 0 Platelet Estimate Increased Polychromasia 0 Poikilocytosis 0 Anisocytosis 1+ Microcytosis 0 Macrocytosis 1+ Target Cells 1+ Ovalocytes 1+ Sodium 138 Potassium 4.1 Chloride 104 Carbon Dioxide 28 Anion Gap 6 L BUN 2.9 L* Creatinine 0.6 Est GFR (CKD-EPI)AfAm 121.43 Est GFR (CKD-EPI)NonAf 104.77 Random Glucose 87 Calcium 7.9 L Active Medications Generic Name Dose Route Start Last Admin Trade Name Freq PRN Reason Stop Dose Admin Bacitracin 1 applic 06/14/19 22:00 06/15/19 22:28 Bacitracin - TP 1 applic HS [facility] Administration Docusate Sodium 200 mg 06/16/19 10:00 06/16/19 10:40 Colace - PO 200 mg DAILY [facility] Administration Heparin Sodium (Porcine) 5,000 unit 06/14/19 22:00 06/16/19 13:24 Heparin - SQ Not Given TID [facility] Levofloxacin 500 mg in 100 mls @ 100 mls/hr 06/16/19 12:35 06/16/19 13:20 Levaquin 500 Mg Premixed Ivpb - IVPB 100 mls/hr DAILY [facility] Administration Protocol Metoprolol Succinate 25 mg 06/15/19 10:00 06/16/19 10:41 Toprol Xl - PO Not Given DAILY [facility] Miscellaneous 1 each 06/15/19 22:00 06/15/19 22:28 Lidoderm Patch Removal MC 1 each DAILY@2200 [facility] Administration Morphine Sulfate 10 mg 06/14/19 18:49 06/16/19 13:59 Morphine 10 Mg/5 Ml Liquid PO 10 mg Q8H PRN Administration PAIN LEVEL 7 - 10 Nystatin 1 applic 06/15/19 07:00 06/16/19 06:30 Mycostatin Ointment - TP Not Given AM [facility] Polyethylene Glycol 17 gm 06/16/19 12:15 06/16/19 13:20 Miralax (For Daily Use) - PO Not Given BID [facility] ASSESSMENT/PLAN: 64 y/o M with PMH T4 spinal cord transection with paraplegia, neurogenic bladder, recurrent UTIs (admitted at [facility]), COPD(though pt denies such history) , chronic pain, splenectomy, adenocarcinoma of R lung admitted for leg fracture. 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 chronic chest and upper back pain EKG with sinus rhythm will cont home pain meds fungal foot rash nystatin cream DVT PPX heparin TID Visit type - Emergency Visit Emergency Visit: Yes ED Registration Date: 06/14/19 Care time: The patient presented to the Emergency Department on the above date and was hospitalized for further evaluation of their emergent condition. - New Patient This patient is new to me today: No - Critical Care Critical Care patient: No - Discharge Referral Referred to [facility] Med P.C.: No ATTENDING PHYSICIAN STATEMENT I saw and evaluated the patient. I reviewed the resident's note and discussed the case with the resident. I agree with the resident's findings and plan as documented. SUBJECTIVE: OBJECTIVE: ASSESSMENT AND PLAN:
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
[2019-06-16] MEDS: BACITRACIN 15 GM TUBE TOPICAL OINTMENT TP SCH (21:08)
[2019-06-16] MEDS: LIDOCAINE PATCH REMOVAL MC SCH (21:08)
[2019-06-17] MEDS: HEPARIN NA (PORCINE) 5,000 UNITS/ML 1ML VIAL SQ SCH ×3 (06:15→22:15)
[2019-06-17] MEDS: NYSTATIN 100000 UNIT/GM TOPICAL OINTMENT 15 GM TUBE TP SCH (06:24)
[2019-06-17] MEDS: morphine SULFATE 10 MG/5 ML UNIT-DOSE CUP PO PRN ×3 (06:35→22:14)
[2019-06-17 09:08] LABS: BASO % 0.4 % (0-2.0); EOS % 0.8 % (0-4.5); HEMATOCRIT 36.2 % (35.4-49); HEMOGLOBIN 12.1 GM/dL (11.7-16.9); LYMPH % 5.6 % (8-40); MCH 32.3 pg (25.7-33.7); MCHC 33.5 g/dl (32.0-35.9); MEAN CELL VOLUME 96.3 fl (80-96); MEAN PLT VOLUME 9.2 fl (7.5-11.1); MONO % 4.5 % (3.8-10.2); NEUT % 88.7 % (42.8-82.8); PLATELET COUNT 521 K/MM3 (134-434); RBC 3.76 M/mm3 (4.00-5.60); RDW 14.8 % (11.9-15.9); WHITE BLOOD COUNT 16.1 K/mm3 (4.0-10.0)
[2019-06-17 09:37] LABS: BLOOD UREA NITROGEN 6.5 mg/dL (7-18); CALCIUM 8.2 mg/dL (8.5-10.1); CREATININE 0.6 mg/dL (0.55-1.3); POTASSIUM 4.2 mmol/L (3.5-5.1)
[2019-06-17] MEDS: DOCUSATE SODIUM 100 MG CAPSULE (FP) PO SCH (10:53)
[2019-06-17] MEDS: metoPROLOL SUCCINATE 25 MG TAB.SR.24H (FP) PO SCH (10:54)
[2019-06-17] MEDS: POLYETHYLENE GLYCOL 3350 119 GM BTL PO SCH ×2 (10:54→22:15)
[2019-06-17] MEDS ORDERED: diazePAM 5 MG TABLET PO PRN (14:35)
--- NOTE | 2019-06-17 16:48 | PN ---
Physical Exam: SUBJECTIVE: Patient seen and examined. pt offered no complaints. insisting on being ready to go home OBJECTIVE: Vital Signs Period Temp Pulse Resp BP Sys/Roche Pulse Ox Last 24 Hr 97.6 F-98.5 F 64-91 17-18 114-150/57-78 GENERAL: Awake, alert, and fully oriented, in no acute distress. HEAD: Normal with no signs of trauma. EYES: Pupils equal, round and reactive to light, extraocular movements intact, sclera anicteric, conjunctiva clear. No lid lag. EARS, NOSE, THROAT: oropharynx clear without exudates. Moist mucous membranes. LUNGS: Breath sounds equal, clear to auscultation bilaterally. No wheezes, and no crackles. No accessory muscle use. HEART: Regular rate and rhythm, normal S1 and S2 without murmur, rub or gallop. ABDOMEN: Soft, nontender, mildly distended, normoactive bowel sounds, no guarding, no rebound, no masses. No hepatomegaly or splenomegaly. UPPER EXTREMITIES: 2+ pulses, warm, well-perfused. No cyanosis. No clubbing. No peripheral edema. LOWER EXTREMITIES: 2+ pulses, warm, well-perfused. BLE significantly atrophied with splint around left knee and leg, distal pulses present NEUROLOGICAL: Cranial nerves II-XII intact. Normal speech. Normal gait. SKIN: Warm, dry and scaly, with small lesion in left foot with fungal rash under toe Laboratory Results - last 24 hr 06/17/19 06/17/19 08:30 08:30 WBC 16.1 H RBC 3.76 L Hgb 12.1 Hct 36.2 MCV 96.3 H MCH 32.3 MCHC 33.5 RDW 14.8 Plt Count 521 H MPV 9.2 Absolute Neuts (auto) 14.3 H Neutrophils % 88.7 H Lymphocytes % 5.6 L D Monocytes % 4.5 Eosinophils % 0.8 D Basophils % 0.4 Nucleated RBC % 0 Sodium 137 Potassium 4.2 Chloride 101 Carbon Dioxide 30 Anion Gap 6 L BUN 6.5 L Creatinine 0.6 Est GFR (CKD-EPI)AfAm 121.43 Est GFR (CKD-EPI)NonAf 104.77 Random Glucose 103 Calcium 8.2 L Active Medications Generic Name Dose Route Start Last Admin Trade Name Freq PRN Reason Stop Dose Admin Bacitracin 1 applic 06/14/19 22:00 06/16/19 21:08 Bacitracin - TP 1 applic HS ZAIRA Administration Diazepam 10 mg 06/17/19 14:35 Valium - PO TID PRN ANXIETY Docusate Sodium 200 mg 06/16/19 10:00 06/17/19 10:53 Colace - PO Not Given DAILY ZAIRA Heparin Sodium (Porcine) 5,000 unit 06/14/19 22:00 06/17/19 14:16 Heparin - SQ Not Given TID ZAIRA Levofloxacin 500 mg in 100 mls @ 100 mls/hr 06/16/19 12:35 06/17/19 10:52 Levaquin 500 Mg Premixed Ivpb - IVPB 100 mls/hr DAILY [facility] Administration Protocol Lactobacillus Acidophilus 1 tab 06/17/19 15:00 Bacid - PO DAILY ZAIRA Metoprolol Succinate 25 mg 06/15/19 10:00 06/17/19 10:54 Toprol Xl - PO Not Given DAILY [facility] Miscellaneous 1 each 06/15/19 22:00 06/16/19 21:08 Lidoderm Patch Removal MC 1 each DAILY@2200 [facility] Administration Morphine Sulfate 10 mg 06/17/19 14:34 Morphine 10 Mg/5 Ml Liquid PO Q6H PRN PAIN LEVEL 7 - 10 Nystatin 1 applic 06/15/19 07:00 06/17/19 06:24 Mycostatin Ointment - TP Not Given AM [facility] Polyethylene Glycol 17 gm 06/16/19 12:15 06/17/19 10:54 Miralax (For Daily Use) - PO Not Given BID [facility] ASSESSMENT/PLAN: 64 y/o M with PMH T4 spinal cord transection with paraplegia, neurogenic bladder, recurrent UTIs (admitted at [facility]), COPD(though pt denies such history) , chronic pain, splenectomy, adenocarcinoma of R lung admitted for leg fracture. L TIb/Fib fx s/p cast in ED by Dr Browning f/u with ortho as out pt in 2 weeks Pt 24h home services via [facility] has been terminated due to high liability pending SNF Leukocytosis with positive culture WBC improved to 16.1 pt has hx of recurrent UTI poss due to neurogenic bladder pt denies any fever, chills Urine culture growing citrobacter Koseri sensitive to current antibiotic levaquin cont levaquin 500mg IV day 2 chronic chest and upper back pain EKG with sinus rhythm will cont home pain meds fungal foot rash nystatin cream DVT PPX heparin TID Visit type - Emergency Visit Emergency Visit: Yes ED Registration Date: 06/14/19 Care time: The patient presented to the Emergency Department on the above date and was hospitalized for further evaluation of their emergent condition. - New Patient This patient is new to me today: No - Critical Care Critical Care patient: No - Discharge Referral Referred to [facility] Med P.C.: No ATTENDING PHYSICIAN STATEMENT I saw and evaluated the patient. I reviewed the resident's note and discussed the case with the resident. I agree with the resident's findings and plan as documented. SUBJECTIVE: OBJECTIVE: ASSESSMENT AND PLAN:
[2019-06-17] MEDS: LACTOBACILLUS ACIDOPHILUS 1 TABLET PO SCH (18:01)
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
[2019-06-17] MEDS: LIDOCAINE PATCH REMOVAL MC SCH (22:15)
[2019-06-17] MEDS: BACITRACIN 15 GM TUBE TOPICAL OINTMENT TP SCH (22:15)
[2019-06-18] MEDS: morphine SULFATE 10 MG/5 ML UNIT-DOSE CUP PO PRN ×2 (04:48→12:40)
[2019-06-18] MEDS: HEPARIN NA (PORCINE) 5,000 UNITS/ML 1ML VIAL SQ SCH ×2 (05:57→13:55)
[2019-06-18] MEDS: NYSTATIN 100000 UNIT/GM TOPICAL OINTMENT 15 GM TUBE TP SCH (06:00)
[2019-06-18 09:44] LABS: EOS % 1.5 % (0-4.5); HEMATOCRIT 38.3 % (35.4-49); HEMOGLOBIN 12.7 GM/dL (11.7-16.9); LYMPH % 10.9 % (8-40); MCH 31.8 pg (25.7-33.7); MCHC 33.2 g/dl (32.0-35.9); MEAN CELL VOLUME 95.8 fl (80-96); MEAN PLT VOLUME 8.9 fl (7.5-11.1); MONO % 5.5 % (3.8-10.2); NEUT % 82.1 % (42.8-82.8); PLATELET COUNT 622 K/MM3 (134-434); RDW 14.8 % (11.9-15.9); WHITE BLOOD COUNT 12.4 K/mm3 (4.0-10.0)
[2019-06-18 10:09] LABS: BLOOD UREA NITROGEN 5.5 mg/dL (7-18); CALCIUM 8.7 mg/dL (8.5-10.1); CREATININE 0.6 mg/dL (0.55-1.3); POTASSIUM 3.9 mmol/L (3.5-5.1)
[2019-06-18] MEDS: metoPROLOL SUCCINATE 25 MG TAB.SR.24H (FP) PO SCH ×2 (10:19→10:39)
[2019-06-18] MEDS: DOCUSATE SODIUM 100 MG CAPSULE (FP) PO SCH (10:19)
[2019-06-18] MEDS: POLYETHYLENE GLYCOL 3350 119 GM BTL PO SCH (10:19)
[2019-06-18] MEDS: LACTOBACILLUS ACIDOPHILUS 1 TABLET PO SCH (10:20)
[2019-06-18 14:38] LABS: ANISOCYTOSIS 0; MACROCYTOSIS 0; PLATELET ESTIMATE INCREASED; TARGET CELLS 1+; TOXIC GRANULATION 1+
--- NOTE | 2019-06-18 15:01 | PN ---
Progress Note (short form) - Note Progress Note: Ortho Pt seen and examined s/p left proximal tib/fib fx, splint intact Selected Entries 06/18/19 10:00 Temperature 97.3 F L Pulse Rate 81 Respiratory 18 Rate Blood Pressure 90/50 L well padded splint intact a/p maintain splint ok to d/c from ortho pov f/u in 2-4weeks d/w Dr. Browning
[2019-06-18 16:08] VITALS: BP 97/56; PULSE 80; TEMP 97.4
--- NOTE | 2019-06-18 16:39 | DS ---
Physical Exam: SUBJECTIVE: Patient seen and examined. pt offered no complaints. pt ate entire breakfast and endorsed being ready to go home. OBJECTIVE: Vital Signs Period Temp Pulse Resp BP Sys/Roche Pulse Ox Last 24 Hr 97.3 F-98.6 F 80-106 18-20 90-152/50-77 95 PHYSICAL EXAM GENERAL: Awake, alert, and fully oriented, in no acute distress. HEAD: Normal with no signs of trauma. EYES: Pupils equal, round and reactive to light, extraocular movements intact, sclera anicteric, conjunctiva clear. No lid lag. EARS, NOSE, THROAT: oropharynx clear without exudates. Moist mucous membranes. LUNGS: Breath sounds equal, clear to auscultation bilaterally. No wheezes, and no crackles. No accessory muscle use. HEART: Regular rate and rhythm, normal S1 and S2 without murmur, rub or gallop. ABDOMEN: Soft, nontender, mildly distended, normoactive bowel sounds, no guarding, no rebound, no masses. No hepatomegaly or splenomegaly. UPPER EXTREMITIES: 2+ pulses, warm, well-perfused. No cyanosis. No clubbing. No peripheral edema. LOWER EXTREMITIES: 2+ pulses, warm, well-perfused. BLE significantly atrophied with splint around left knee and leg, distal pulses present NEUROLOGICAL: Cranial nerves II-XII intact. Normal speech. Normal gait. SKIN: Warm, dry and scaly, with small lesion in left foot with fungal rash under toe LABS Laboratory Results - last 24 hr 06/18/19 06/18/19 09:10 09:10 WBC 12.4 H RBC 4.00 Hgb 12.7 Hct 38.3 MCV 95.8 MCH 31.8 MCHC 33.2 RDW 14.8 Plt Count 622 H MPV 8.9 Absolute Neuts (auto) 10.2 H Neutrophils % 82.1 Neutrophils % (Manual) 75.2 Band Neutrophils % 1.0 Lymphocytes % 10.9 D Lymphocytes % (Manual) 8.9 D Monocytes % 5.5 Monocytes % (Manual) 9 Eosinophils % 1.5 D Eosinophils % (Manual) 3.0 D Basophils % 0.0 Basophils % (Manual) 0.0 Myelocytes % (Man) 0 Promyelocytes % (Man) 0 Blast Cells % (Manual) 0 Nucleated RBC % 0 Metamyelocytes 1 D Hypochromia 1+ Toxic Granulation 1+ Platelet Estimate Increased Platelet Comment Present Polychromasia 0 Poikilocytosis 1+ Anisocytosis 0 Microcytosis 0 Macrocytosis 0 Spherocytes 1+ Target Cells 1+ Stomatocytes 1+ Sodium 137 Potassium 3.9 Chloride 102 Carbon Dioxide 29 Anion Gap 6 L BUN 5.5 L Creatinine 0.6 Est GFR (CKD-EPI)AfAm 121.43 Est GFR (CKD-EPI)NonAf 104.77 Random Glucose 94 Calcium 8.7 XR leg tib/fig 2 views reveal acute fractures of the proximal left tibia and fibula and are partially healed fracture deformities of the distal tibia and fibula. XR knee proximal tibial and fibular fractures. XR hip and pelvis L An AP view of the pelvis and view of the left hip reveal scoliosis, deformed pelvis with assumed old bilateral femoral fractures stabilized with hardware, degenerative hip changes but no sign of an acute fracture or subluxation. There is retained stool. There is some abdominal distention. XR foot A single AP view of the left foot and ankle reveal healed fracture deformities of the distal tibia and fibula which looks similar to 05/28/2018. There is loss of bone density and angulated toes. An acute process is not seen. If symptoms persist, further imaging and orthopedic consultation is suggested. XR femur 2 views of the left femur reveal degenerative changes, intramedullary saba and screw stabilizing the left femur, acute proximal tibial and fibular fractures and a deformed pelvis with chronic changes. There are degenerative findings in both hips with the right hip more affected than the left. CXR Single AP view of the chest reveals no change since 08/27/2018. There is mediastinal shift to the right with some hyperinflation, scoliosis and no sign of an acute chest process. HOSPITAL COURSE: Date of Admission:06/14/19 64 y/o M with PMH T4 spinal cord transection with paraplegia, neurogenic bladder, recurrent UTIs (admitted at [facility]), COPD(though pt denies such history) , chronic pain, splenectomy, adenocarcinoma of R lung admitted for leg fracture.s/p cast in ED by Dr Browning and pain controlled with home regimen of mophine and valium; f/u with ortho as out pt in 2 weeks. pt complained of abdominal pain and not having a BM. started on bowel regimen though pt consistently refused the meds. while admitted, Pt was found to have leukocytosis with positive urine culture and due to hx of recurrent UTI poss due to neurogenic bladder, Urine culture grew citrobacter Koseri sensitive to antibiotic levaquin. pt was kept on levaquin and discharged with it for an additional 4 days. Date of Discharge: 06/18/19 Minutes to complete discharge: 35 Discharge Summary Problems reviewed: Yes Reason For Visit: FRACTURE OF TIBIA, DISTAL, LEFT,CLOSED Current Active Problems Tibia/fibula fracture (Acute) Condition: Guarded - Instructions Diet, Activity, Other Instructions: You came into the Ed because you fractured your leg. We took pictures of your leg and it confirmed the fracture. you were seen by Orthopedic surgery who splinted your leg. You were found to have an elevated white blood cell count and an infection in your urine. We started you on antibiotics which you will continue for another 5 days with prebiotics to prevent diarrhea. your symptoms have improved and you are now ready to be discharged home. Medications: Please resume all of your home medications. Please take the antibiotic Levaquin 500mg daily by mouth from 06/18/19-06/22/19. Also continue to take the bacid (probiotics) concurrently to reduce the risk of diarrhea and also continue taking it for the rest of your life. Follow up: Please follow up with Dr Kang your primary care physician within one week Please follow up with Dr Browning the orthopedic surgeon within 2 weeks to ensure proper healing of your leg fracture If you begin to experience chest pain, shortness of breath, bleeding, abdominal pain, excessive diarrhea please return to the ED immediately Referrals: Casimiro Browning MD [Staff Physician] - 2 Weeks Juan Manuel Kang MD [Primary Care Provider] - 1 Week Disposition: [facility] FACILITY - Home Medications Comprehensive Discharge Medication List: Ambulatory Orders Diazepam [Valium] 10 mg PO TID PRN tablet MDD 30mg 06/17/18 Morphine 10 mg/5 ml Liquid [Morphine 10 mg/5 mL Liquid -] 20 mg PO Q4H MDD 60mg 06/14/19 Bacitracin - [Bacitracin Topical Ointment -] 1 applic TP HS tube 06/17/19 Heparin - 5,000 unit SQ TID vial 06/17/19 Lactobacillus Acidophilus [Bacid -] 1 tab PO DAILY tab 06/17/19 Lidocaine Patch Removal [Lidoderm Patch Removal] 1 each MC DAILY@2200 each 06/26 Metoprolol Succinate [Toprol XL -] 25 mg PO DAILY tab.sr.24h 06/17/19 Nystatin Ointment [Mycostatin Ointment -] 1 applic TP AM applic 06/17/19 Polyethylene Glycol 3350 [Miralax 119 gm Btl -] 17 gm PO BID bottle 06/17/19 levoFLOXacin [Levaquin -] 500 mg PO DAILY #4 tablet 06/18/19 Problem List - Problems (1) Tibia/fibula fracture Code(s): S82.209A - UNSP FRACTURE OF SHAFT OF UNSP TIBIA, INIT FOR CLOS FX; S82.409A - UNSP FRACTURE OF SHAFT OF UNSP FIBULA, INIT FOR CLOS FX Qualifiers: Encounter type: initial encounter Fracture type: closed Laterality: left Qualified Code(s): S82.202A - Unspecified fracture of shaft of left tibia, initial encounter for closed fracture; S82.402A - Unspecified fracture of shaft of left fibula, initial encounter for closed fracture (2) Abdominal pain Code(s): R10.9 - UNSPECIFIED ABDOMINAL PAIN Qualifiers: Abdominal location: generalized Qualified Code(s): R10.84 - Generalized abdominal pain (3) Adenocarcinoma of right lung Code(s): C34.91 - MALIGNANT NEOPLASM OF UNSP PART OF RIGHT BRONCHUS OR LUNG (4) Anxiety Code(s): F41.9 - ANXIETY DISORDER, UNSPECIFIED (5) Fracture of tibia, distal, left, closed Code(s): S82.302A - UNSP FRACTURE OF LOWER END OF LEFT TIBIA, INIT FOR CLOS FX Qualifiers: Encounter type: initial encounter (6) Ileus Code(s): K56.7 - ILEUS, UNSPECIFIED (7) Leukocytosis Code(s): D72.829 - ELEVATED WHITE BLOOD CELL COUNT, UNSPECIFIED (8) Lung nodule Code(s): R91.1 - SOLITARY PULMONARY NODULE (9) Pulmonary nodule Code(s): R91.1 - SOLITARY PULMONARY NODULE (10) UTI (urinary tract infection) Code(s): N39.0 - URINARY TRACT INFECTION, SITE NOT SPECIFIED Qualifiers: (11) Chronic pain Code(s): G89.29 - OTHER CHRONIC PAIN Qualifiers: Chronic pain type: chronic pain syndrome Qualified Code(s): G89.4 - Chronic pain syndrome (12) Constipation Code(s): K59.00 - CONSTIPATION, UNSPECIFIED (13) Neurogenic bladder Code(s): N31.9 - NEUROMUSCULAR DYSFUNCTION OF BLADDER, UNSPECIFIED (14) Paraplegia Code(s): G82.20 - PARAPLEGIA, UNSPECIFIED (15) Abdominal pain Code(s): R10.9 - UNSPECIFIED ABDOMINAL PAIN Qualifiers: Abdominal location: unspecified location Qualified Code(s): R10.9 - Unspecified abdominal pain (16) Abdominal pain in male Code(s): R10.9 - UNSPECIFIED ABDOMINAL PAIN (17) Acute UTI Code(s): N39.0 - URINARY TRACT INFECTION, SITE NOT SPECIFIED This patient is new to me today: No Emergency Visit: Yes ED Registration Date: 06/14/19 Care time: The patient presented to the Emergency Department on the above date and was hospitalized for further evaluation of their emergent condition. Critical Care patient: No - Discharge Referral Referred to [facility] Med P.C.: No ATTENDING PHYSICIAN STATEMENT I saw and evaluated the patient. I reviewed the resident's note and discussed the case with the resident. I agree with the resident's findings and plan as documented. SUBJECTIVE: OBJECTIVE: ASSESSMENT AND PLAN:
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
[2019-06-19] MEDS: BACITRACIN 15 GM TUBE TOPICAL OINTMENT TP SCH (00:17)
[2019-06-19] MEDS: POLYETHYLENE GLYCOL 3350 119 GM BTL PO SCH (00:18)
[2019-06-19] MEDS: HEPARIN NA (PORCINE) 5,000 UNITS/ML 1ML VIAL SQ SCH (00:18)
[2019-06-19] MEDS: LIDOCAINE PATCH REMOVAL MC SCH (00:18)
== END 2019-06-19 00:39 | disposition home or self-care (01) ==
LOC: JER 11:56 → JERBED 16:06 → J6S 06-15 01:49
PROVIDERS: ADMIT Internal Medicine; ATTEND Internal Medicine
PROC: 0QSKXZZ Reposition Left Fibula, External Approach (ICD-10-PCS; principal; 2019-06-14)
PROC: 0QSHXZZ Reposition Left Tibia, External Approach (ICD-10-PCS; 2019-06-14)
PROC: 3E033GC Introduction of Other Therapeutic Substance into Peripheral Vein, Percutaneous Approach (ICD-10-PCS; 2019-06-14)
PROC: 3E03329 Introduction of Other Anti-infective into Peripheral Vein, Percutaneous Approach (ICD-10-PCS; 2019-06-14)
PROC: 3E033NZ Introduction of Analgesics, Hypnotics, Sedatives into Peripheral Vein, Percutaneous Approach (ICD-10-PCS; 2019-06-14)
PROC: 3E0337Z Introduction of Electrolytic and Water Balance Substance into Peripheral Vein, Percutaneous Approach (ICD-10-PCS; 2019-06-14)
DX: S82.202A Unspecified fracture of shaft of left tibia, initial encounter for closed fracture (principal); S82.832A Other fracture of upper and lower end of left fibula, initial encounter for closed fracture; I95.9 Hypotension, unspecified; J44.9 Chronic obstructive pulmonary disease, unspecified; G82.20 Paraplegia, unspecified; D72.829 Elevated white blood cell count, unspecified; N31.9 Neuromuscular dysfunction of bladder, unspecified; X58.XXXA Exposure to other specified factors, initial encounter; Y93.89 Activity, other specified; Y92.9 Unspecified place or not applicable; Z85.118 Personal history of other malignant neoplasm of bronchus and lung; Z87.440 Personal history of urinary (tract) infections; Z87.81 Personal history of (healed) traumatic fracture; R07.89 Other chest pain; M54.9 Dorsalgia, unspecified; G89.29 Other chronic pain; B35.3 Tinea pedis; N39.0 Urinary tract infection, site not specified; Z29.8 Encounter for other specified prophylactic measures
CPT/HCPCS: 27752; 36415; 71045-TC-FY; 73523-TC-FY; 73552-TC-LT-FY; 73562-TC-LT-FY; 73590-TC-LT-FY; 73610-TC-LT-FY; 73630-TC-LT; 80048; 80053; 81003; 83735; 84100; 85025; 85610; 85730; 87086; 87186; 93005; 93010; 96365; 96366; 96375; 99284-25; G0378; J1644; J7030

== ENCOUNTER 2019-06-22 12:36 | Inpatient (IN) | payer OTHER, BC ==
--- NOTE | 2019-06-22 13:45 | PDOC ---
History of Present Illness - General Chief Complaint: Back Pain Stated Complaint: Back Pain Time Seen by Provider: 06/22/19 13:40 Exam Limitations: No Limitations - History of Present Illness Initial Comments: 06/22/19 13:43 PCP: Dr. 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 Pain is severe, "feels like a sledge hammer" in mid thoracic spine, came on "all of a sudden" "gradually worsening" "two days ago" "I was talking with REGISTERED APPRAISER, the pain came on and I called Dr. Kang and came to the ED," patient has not tried anything that makes it better or worse. Patient endorses home morphine, says he took 3 yesterday but isn't really sure, knows he didn't take any today, has a prescription at the pharmacy, thinks someone can pick it up for him, says he needs at least 6 right now, "they always give 4 but I need 6." No sensation from nipples down, incontinent of urine and feces - adamantly denies constipation or difficulty with BMs. Denies having any ortho follow up appointment scheduled, denies having antibiotic sent to his pharmacy, says someone may have picked it up for him yesterday. Has Hx of chronic UTI, denies ever having pyelonephritis. No fever, chills, cough or shortness of breath. Chronically immobilized, recently hospitalized, former smoker, no unilateral leg swelling / pain. States that the sledge hammer sensation is also in his chest. All: NKDA Meds: per chart PMH: as above PSH: as above Past History - Travel Traveled outside of the country in the last 30 days: No Close contact w/someone who was outside of country & ill: No - Past Medical History Allergies/Adverse Reactions: Allergies Allergy/AdvReac Type Severity Reaction Status Date / Time No Known Allergies Allergy Verified 06/22/19 13:03 Home Medications: Ambulatory Orders Diazepam [Valium] 10 mg PO TID PRN tablet MDD 30mg 10/10/18 Morphine 10 mg/5 ml Liquid [Morphine 10 mg/5 mL Liquid -] 20 mg PO Q4H MDD 60mg 06/14/19 Bacitracin - [Bacitracin Topical Ointment -] 1 applic TP HS tube 06/17/19 Heparin - 5,000 unit SQ TID vial 06/17/19 Lactobacillus Acidophilus [Bacid -] 1 tab PO DAILY tab 06/17/19 Lidocaine Patch Removal [Lidoderm Patch Removal] 1 each MC DAILY@2200 each 06/26 Metoprolol Succinate [Toprol XL -] 25 mg PO DAILY tab.sr.24h 06/17/19 Nystatin Ointment [Mycostatin Ointment -] 1 applic TP AM applic 06/17/19 Polyethylene Glycol 3350 [Miralax 119 gm Btl -] 17 gm PO BID bottle 06/17/19 Anemia: No Asthma: No Cancer: No Cardiac Disorders: No CVA: No COPD: Yes CHF: No Dementia: No Diabetes: No GI Disorders: No Disorders: Yes (Recurrent UTI, 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) HTN: (Hypotension) Hypercholesterolemia: No Liver Disease: No Seizures: No Thyroid Disease: No - Surgical History Abdominal Surgery: No Appendectomy: No Cardiac Surgery: No Cholecystectomy: No Lung Surgery: No Neurologic Surgery: No Orthopedic Surgery: Yes (fracture right wrist s/p fusion) - Immunization History Td Vaccination: No Immunization Up to Date: No - Psycho Social/Smoking Cessation Hx Smoking Status: No Smoking History: Former smoker Years of Tobacco Use: 0 Have you smoked in the past 12 months: No Number of Cigarettes Smoked Daily: 3 If you are a former smoker, when did you quit?: 1986 Cigars Per Day: 0 Information on smoking cessation initiated: No Hx Alcohol Use: No Drug/Substance Use Hx: No Substance Use Type: None Hx Substance Use Treatment: No Review of Systems - Review of Systems Able to Perform ROS?: Yes Is the patient limited Marshallese proficient: Yes Constitutional: Yes: Weakness (chronic ). No: Chills, Diaphoresis, Fever, Weight Stable HEENTM: No: Blurred Vision, Recent change in vision, Nose Congestion, Tinnitus, Throat Swelling Respiratory: No: Cough, Orthopnea, Shortness of Breath, Wheezing Cardiac (ROS): Yes: See HPI, Chest Pain. No: Edema, Irregular Heart Rate, Palpitations, Syncope, Chest Tightness ABD/GI: No: Constipated, Diarrhea, Nausea, Poor Appetite, Poor Fluid Intake, Rectal Bleeding, Vomiting : Yes: Symptoms Reported, See HPI, Incontinence. No: Burning, Dysuria, Discharge, Frequency, Pain, Urgency Musculoskeletal: Yes: Symptoms Reported, See HPI, Back Pain Integumentary: No: Bruising, Erythema, Pruritus, Rash Neurological: No: Headache, Numbness, Tingling, Weakness Psychiatric: No: Sleep Pattern Change, Mood Swings, Change in Appetite Endocrine: No: Increased Thirst, Increased Urine, Change in Weight Hematologic/Lymphatic: No: Anemia, Blood Clots, Easy Bleeding All Other Systems: Reviewed and Negative *Physical Exam - Vital Signs Last Vital Signs Temp Pulse Resp BP Pulse Ox 98.4 F 69 18 127/51 L 96 06/22/19 13:03 06/22/19 13:03 06/22/19 13:03 06/22/19 13:03 06/22/19 13:03 - Physical Exam Comments: 06/22/19 14:29 Vitals reviewed, AFVSS WDWN man, appears stated age, laying in bed on right side, no acute distress EOMI, MMM, NCAT, trachea midline RRR, nl s1/s2, no murmurs CTABL, normal WOB, no wheezes / rales / rhonchi Soft, non-tender, non-distended +CVA tenderness WWP, 2+ DP and radial pulses, no clubbing / cyanosis / edema Alert and oriented, no sensation below nipple line, exam c/w reported baseline ED Treatment Course - LABORATORY CBC & Chemistry Diagram: 06/22/19 15:10 06/22/19 17:00 Medical Decision Making - Medical Decision Making 06/22/19 14:35 64yo M with a PMH of COPD, hypotension, adenocarcinoma of the right lung, 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 History notable for recent and chronic immobilization, chronic UTI - without medication compliance, significant discussion regarding what pain medications patient would like. Exam notable for normal vitals, comfortable appearance. DDX: Pyelonephritis, MSK pain vs fracture, less likely r/o ACS, PE, history not consistent with aortic dissection / aneurysm. -CBC, CMP, CP, Lipase -UA, UCx -EKG, CXR 06/22/19 15:13 -4mg Morphine IV for pain -CT Lumbar and T Spine w/o contrast 06/22/19 17:26 -Patient continues to refuse to change into a gown, states that he will need 6 of morphine because 4 is not adequate while morphine is being administered. Nurse reiterates providers initial discussion with patient regarding IV vs PO morphine strength. 06/22/19 17:56 -UA c/w worsening UTI, given Zosyn based on prior sensitivities -Leukocytosis and elevated platelets c/w inflammatory process 06/22/19 18:15 -Electrolytes, LFTs, Lipase wnl -Pt returned from CT, pending read and Xray 06/22/19 19:27 -CXR unchanged from prior without clear infiltrates of effusions -CT of T and L spine without acute fracture, chest with interval enlargement of several bilateral irregular pulmonary nodules suggestive of primary neoplastic disease -EKG; NSR, normal rhythm, normal axis, no ischemic changes Dispo: Med/Surg for pyelonephritis / failure of outpatient ABX 06/22/19 20:00 -Pain could be due to worsening lung malignancy vs pain from pyelo (+CVA, leukocytosis, elevated plts) 06/22/19 21:59 -Case d/w Dr. Shahid who will endorse to hospitalist team Discharge - Discharge Information Problems reviewed: Yes Clinical Impression/Diagnosis: Pyelonephritis, Adenocarcinoma of right lung UTI (urinary tract infection) Qualifiers: Urinary tract infection type: site unspecified Hematuria presence: without hematuria Qualified Code(s): N39.0 - Urinary tract infection, site not specified Condition: Stable - Follow up/Referral - Patient Discharge Instructions - Post Discharge Activity
[2019-06-22] MEDS ORDERED: morphine CARPU-JECT 4 MG/1 ML DISP.SYRIN IVPUSH ONE (15:13)
[2019-06-22 16:00] LABS: BASO % 0.1 % (0-2.0); EOS % 1.8 % (0-4.5); HEMATOCRIT 41.9 % (35.4-49); HEMOGLOBIN 13.9 GM/dL (11.7-16.9); LYMPH % 11.4 % (8-40); MCH 31.1 pg (25.7-33.7); MEAN CELL VOLUME 94.1 fl (80-96); MONO % 9.6 % (3.8-10.2); NEUT % 77.1 % (42.8-82.8); PLATELET COUNT 823 K/MM3 (134-434); RBC 4.46 M/mm3 (4.00-5.60); RDW 15.1 % (11.9-15.9); WHITE BLOOD COUNT 14.1 K/mm3 (4.0-10.0)
[2019-06-22] MEDS ORDERED: morphine SULFATE 4 MG/ML VIAL ONE (16:30)
--- NOTE | 2019-06-22 17:11 | PDOC ---
Attending Attestation - Resident Resident Name: EzraGerhard - ED Attending Attestation I have performed the following: I have examined & evaluated the patient, The case was reviewed & discussed with the resident, I agree w/resident's findings & plan, Exceptions are as noted - HPI HPI: 06/22/19 17:09 64yo M hx T spine injury with paraplegia, lung ca, neurogenic bladder, recent admission for tib-fib fracture presents to the ED with atraumatic diffuse back pain since yesterday. No fevers or chills. Pt denies dizziness, weakness, cp, sob, abd pain, n/v/d. Pt reports taking morphine PO for the pain yesterday but none today. Pt recently diagnosed with UTI, is not sure if he took abx or not. - Physicial Exam PE: 06/22/19 18:00 agree with resident exam - Medical Decision Making 06/22/19 18:00 64yo M with MMP presents to the ED with atraumatic back pain Tender in T3/4 midline No new neuro deficits compared to baseline No CP, SOB, hypoxia or tachycardia to suggest PE DDx includes MSK pain vs fracture vs UTI Plan for labs, UA, CT T/L spine, pain control, reassess 06/22/19 19:00 UA+ for UTI, especially compared to UA checked recently in the EMR Based on previous cultures, will cover with zosyn CT scans done, but not read Anticipate admission for IV abx once CT reads are back Case signed out to overnight team for further mgmt/dispo Heart Score/ECG Review #1 06/22/19 18:04 Twelve-lead EKG was performed and reviewed by me. Normal sinus rhythm, rate 67. Normal axis and intervals. Wavy baseline but no ST elevations.
[2019-06-22 17:40] LABS: EPI CELLS 3.2 /HPF (0-5/HPF); HYALINE CASTS 2 /lpf (0-8); URINE APPEARANCE CLOUDY; URINE BACTERIA 653.5 /hpf (NEGATIVE); URINE BILIRUBIN NEGATIVE (NEGATIVE); URINE COLOR YELLOW; URINE GLUCOSE (UA) NEGATIVE (NEGATIVE); URINE KETONE NEGATIVE (NEGATIVE); URINE LEUK ESTERASE 3+ (NEGATIVE); URINE NITRITE NEGATIVE (NEGATIVE); URINE PROTEIN NEGATIVE (NEGATIVE); URINE RBC 3 /hpf (0-4); URINE UROBILINOGEN 0.2 mg/dL (0.2-1.0); URINE WBC 235 /hpf (0-5)
[2019-06-22 17:55] LABS: INR 1.02 (0.83-1.09)
[2019-06-22] MEDS ORDERED: PIPERACILLIN/TAZOB 3.375 GM 3.375 GM in DEXTROSE 5%-WATER - 50 ML IVPB ONE (17:55)
[2019-06-22 17:59] LABS: ALBUMIN 2.7 g/dl (3.4-5.0); BILIRUBIN,TOTAL 0.6 mg/dL (0.2-1); BLOOD UREA NITROGEN 5.9 mg/dL (7-18); CALCIUM 8.7 mg/dL (8.5-10.1); CREATININE 0.6 mg/dL (0.55-1.3); TOT PROT 7.1 g/dl (6.4-8.2)
[2019-06-22] MEDS ORDERED: PIPERACILLIN/TAZOB 4.5 GM 4.5 GM in DEXTROSE 5%-WATER 100 ML IVPB ONE (18:27)
[2019-06-22] MEDS ORDERED: PIPERACILLIN/TAZOB 3.375 GM 3.375 GM/50 ML BAG IVPB ONE (19:19)
--- NOTE | 2019-06-22 23:15 | PN ---
Teaching Attending Note Name of Resident: Yandy House ATTENDING PHYSICIAN STATEMENT I saw and evaluated the patient. I reviewed the resident's note and discussed the case with the resident. I agree with the resident's findings and plan as documented. SUBJECTIVE: Patient is a 64 year old man with a PMH of Adenocarcinoma of the right lung, Spinal cord transection at T4 with paraplegia, Neurogenic bladder with recurrent UTI, COPD, Splenectomy, Gluteal flap procedure for sacral ulcer and recent admission for tibia-fibula fracture presents to the ER with atraumatic diffuse back pain since yesterday. No fevers or chills. Patient denies dizziness, weakness, chest pain, SOB, abdominal pain, nausea, vomiting or diarrhea. Patient reports taking morphine PO for the pain yesterday but none today. Patient recently diagnosed with UTI, is not sure if he took antibiotics or not. OBJECTIVE: Alert Vital Signs Period Temp Pulse Resp BP Sys/Roche Pulse Ox Last 24 Hr 97.8 F-98.4 F 69-84 17-18 119-130/51-72 94-96 HEENT: No Jaundice, eye redness or discharge, PERRLA, EOMI. Normocephalic, atraumatic. External ears are normal and hearing is grossly intact. No nasal discharge. Neck: Supple, nontender. No palpable adenopathy or thyromegaly. No JVD Chest: Good effort. Clear to auscultation and percussion. Heart: Regular. No S3, rub or murmur Abdomen: Not distended, soft, nontender and no HSM. CVAT. No rebound or guarding. Normal bowel sounds. Ext: Peripheral pulses intact. No leg edema. LLE orthocast. Skin: Warm and dry. No petechiae, rash or ecchymosis. Neuro: Alert. Oriented x3. CN 2-12 grossly intact. No sensation below nipples. Paraplegia. Psych: Appropriate mood and affect. Good insight. Home Medications Medication Instructions Recorded Diazepam [Valium] 10 mg PO TID PRN tablet MDD 30mg 06/17/18 Morphine 10 mg/5 ml Liquid 20 mg PO Q4H MDD 60mg 06/14/19 [Morphine 10 mg/5 mL Liquid -] Bacitracin - [Bacitracin Topical 1 applic TP HS tube 06/17/19 Ointment -] Heparin - 5,000 unit SQ TID vial 06/17/19 Lactobacillus Acidophilus [Bacid -] 1 tab PO DAILY tab 06/17/19 Lidocaine Patch Removal [Lidoderm 1 each MC DAILY@2200 each 06/17/19 Patch Removal] Metoprolol Succinate [Toprol XL -] 25 mg PO DAILY tab.sr.24h 06/17/19 Nystatin Ointment [Mycostatin 1 applic TP AM applic 06/17/19 Ointment -] Polyethylene Glycol 3350 [Miralax 17 gm PO BID bottle 06/17/19 119 gm Btl -] Abnormal Lab Results 06/22/19 06/22/19 06/22/19 15:10 15:10 17:00 WBC 14.1 H Plt Count 823 H D Absolute Neuts (auto) 10.8 H BUN 5.9 L Alkaline Phosphatase 129 H Albumin 2.7 L Ur Leukocyte Esterase 3+ H ASSESSMENT AND PLAN: 1. Pyelonephritis - Based on historical urine culture&sensitivities, will treat with IV meropenem pending culture report. CT of thoracic and lumbar spine didnot show acute fracture; showed interval enlargement of several bilateral irregular pulmonary nodules suggestive of primary neoplastic disease. CXR reveals mediastinal shift to the right, hyperinflation and scoliosis - unchanged from prior without clear infiltrates of effusions. EKG showed NSR with no ischemic changes. Thrombocytosis likely due to infection - will monitor daily. If pain persists, will consider bone scan to rule out compression/ pathological fracture at T3/T4 level. Will continue comprehensive care for all of patients comorbid conditions including switching to long acting morphine for pain control and providing bowel regimen. Consult pain management. 2. Hypoalbuminemia - Possibly due to combined effects of malnutrition and inflammation associated with comorbid chronic conditions. Will ensure adequate dietary protein intake and also consult strand buncher fine wire. 3. DVT prophylaxis - Lovenox 40 mg SQ q 24 hours. 4. Advance directives - Full code
[2019-06-23] MEDS ORDERED: morphine SULFATE 10 MG/5 ML UNIT-DOSE CUP PO PRN (01:00)
--- NOTE | 2019-06-23 02:04 | HP ---
CHIEF COMPLAINT: back pain PCP: Dr. Kang HISTORY OF PRESENT ILLNESS: 64 y.o. 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 Pt presenting for 05/18 constant back pain. The patient has chronic pain, but this back pain started suddenly 2-3 days ago and has increased in severity over the past day. Pain is localized to T2-T3 paraspinally L>R. Pt tried morphine x3 tablets 20mg each with no improvement of the pain. Lying on his R side alleviates the pain a little; lying flat on his back or L side make the pain more severe. He has never had this type of pain in the past. Patient routinely uses a brambila cath d/t neurogenic bladder. Denie KIRAN/ fevers/ chills/ N/ V/D/ abdominal pain. Patient recently diagnosed w/ lung CA. When asked about medical follow up care, patient seems to be in denial of his diagnosis. ER course was notable for: (1) U/A 3+ LE; Zosyn 3.375g IV (2) morphine 4mg IV, 1g IV tylenol (3)CT T & L-spine neg for acute fracture (4) CXR: enlargement of previously noted lung nodules. primary neoplasm. Recent Travel: denies PAST MEDICAL HISTORY: as per hpi PAST SURGICAL HISTORY: Multiple orthopedic surgery's for broken bones, splenectomy Social History: Smokin packs per day x 25 years, quit @ age 28 Alcohol: denies Drugs: denies Allergies No Known Allergies Allergy (Verified 06/22/19 13:03) HOME MEDICATIONS: Home Medications Medication Instructions Recorded Diazepam [Valium] 10 mg PO TID PRN tablet MDD 30mg 06/17/18 Morphine 10 mg/5 ml Liquid 20 mg PO Q4H MDD 60mg 06/14/19 [Morphine 10 mg/5 mL Liquid -] Bacitracin - [Bacitracin Topical 1 applic TP HS tube 06/17/19 Ointment -] Heparin - 5,000 unit SQ TID vial 06/17/19 Lactobacillus Acidophilus [Bacid -] 1 tab PO DAILY tab 06/17/19 Lidocaine Patch Removal [Lidoderm 1 each MC DAILY@2200 each 06/17/19 Patch Removal] Metoprolol Succinate [Toprol XL -] 25 mg PO DAILY tab.sr.24h 06/17/19 Nystatin Ointment [Mycostatin 1 applic TP AM applic 06/17/19 Ointment -] Polyethylene Glycol 3350 [Miralax 17 gm PO BID bottle 06/17/19 119 gm Btl -] PHYSICAL EXAMINATION Vital Signs - 24 hr 06/22/19 06/22/19 06/22/19 13:03 19:00 19:35 Temperature 98.4 F 97.8 F 97.9 F Pulse Rate 69 Pulse Rate [ 73 84 Radial] Respiratory 18 18 17 Rate Blood Pressure 127/51 L Blood Pressure 130/63 119/72 [Left Arm] O2 Sat by Pulse 96 95 94 L Oximetry (%) GENERAL: AOx3. Anxious and grumpy. HEENT: NCAT. EOMI. PERRLA. LUNGS: CTABL although difficult to assess R lower lobe d/t patient's positioning -- too painful for him to allow full auscultation HEART: Regular rate and rhythm, normal S1 and S2 without murmurs. ABDOMEN: Soft, nontender, no spurapubic tenderness, not distended, normoactive bowel sounds, no guarding. MUSCULOSKELETAL: + CVA tenderness left side; could not assess R side d/t body positioning. R hand flexed at rest able to extend digits & oppose thumbs b/l but with difficulty. UPPER EXTREMITIES: 2+ pulses palpated b/l LE. LOWER EXTREMITIES: Periph pulses intact. No LE edema. LLE brace present. Mild erythema of LLE. No LE ulcerations/ breaks in skin NEUROLOGICAL: Cranial nerves II-XII intact. Normal speech. Pt cannot ambulate. No sensation below T3; diminished sensation at T3. PSYCHIATRIC: Patient appears annoyed, bothered by the interview. SKIN: No rashes/ lesions/ ulcers noted. Laboratory Results - last 24 hr 06/22/19 06/22/19 06/22/19 15:10 15:10 15:10 WBC 14.1 H RBC 4.46 Hgb 13.9 Hct 41.9 MCV 94.1 MCH 31.1 MCHC 33.0 RDW 15.1 Plt Count 823 H D MPV 9.0 Absolute Neuts (auto) 10.8 H Neutrophils % 77.1 Lymphocytes % 11.4 Monocytes % 9.6 Eosinophils % 1.8 Basophils % 0.1 D Nucleated RBC % 0 PT with INR INR Sodium Cancelled Potassium Cancelled Chloride Cancelled Carbon Dioxide Cancelled Anion Gap Cancelled BUN Cancelled Creatinine Cancelled Est GFR (CKD-EPI)AfAm Cancelled Est GFR (CKD-EPI)NonAf Cancelled Random Glucose Cancelled Calcium Cancelled Total Bilirubin Cancelled AST Cancelled ALT Cancelled Alkaline Phosphatase Cancelled Creatine Kinase Cancelled Troponin I Cancelled Total Protein Cancelled Albumin Cancelled Lipase Urine Color Urine Appearance Urine pH Ur Specific [place] Urine Protein Urine Glucose (UA) Urine Ketones Urine Blood Urine Nitrite Urine Bilirubin Urine Urobilinogen Ur Leukocyte Esterase Urine WBC (Auto) Urine RBC (Auto) Urine Casts (Auto) U Epithel Cells (Auto) Urine Bacteria (Auto) Urine Yeast (Auto) 06/22/19 06/22/19 06/22/19 15:10 15:10 17:00 WBC RBC Hgb Hct MCV MCH MCHC RDW Plt Count MPV Absolute Neuts (auto) Neutrophils % Lymphocytes % Monocytes % Eosinophils % Basophils % Nucleated RBC % PT with INR Cancelled 12.00 INR Cancelled 1.02 Sodium Potassium Chloride Carbon Dioxide Anion Gap BUN Creatinine Est GFR (CKD-EPI)AfAm Est GFR (CKD-EPI)NonAf Random Glucose Calcium Total Bilirubin AST ALT Alkaline Phosphatase Creatine Kinase Troponin I Total Protein Albumin Lipase Urine Color Yellow Urine Appearance Cloudy Urine pH 6.0 Ur Specific [place] 1.010 Urine Protein Negative Urine Glucose (UA) Negative Urine Ketones Negative Urine Blood Negative Urine Nitrite Negative Urine Bilirubin Negative Urine Urobilinogen 0.2 Ur Leukocyte Esterase 3+ H Urine WBC (Auto) 235 Urine RBC (Auto) 3 Urine Casts (Auto) 2 U Epithel Cells (Auto) 3.2 Urine Bacteria (Auto) 653.5 Urine Yeast (Auto) None 06/22/19 17:00 WBC RBC Hgb Hct MCV MCH MCHC RDW Plt Count MPV Absolute Neuts (auto) Neutrophils % Lymphocytes % Monocytes % Eosinophils % Basophils % Nucleated RBC % PT with INR INR Sodium 140 Potassium 4.0 Chloride 102 Carbon Dioxide 29 Anion Gap 8 BUN 5.9 L Creatinine 0.6 Est GFR (CKD-EPI)AfAm 121.43 Est GFR (CKD-EPI)NonAf 104.77 Random Glucose 85 Calcium 8.7 Total Bilirubin 0.6 AST 17 ALT 17 Alkaline Phosphatase 129 H Creatine Kinase Troponin I Total Protein 7.1 Albumin 2.7 L Lipase 375 Urine Color Urine Appearance Urine pH Ur Specific [place] Urine Protein Urine Glucose (UA) Urine Ketones Urine Blood Urine Nitrite Urine Bilirubin Urine Urobilinogen Ur Leukocyte Esterase Urine WBC (Auto) Urine RBC (Auto) Urine Casts (Auto) U Epithel Cells (Auto) Urine Bacteria (Auto) Urine Yeast (Auto) ASSESSMENT/PLAN: 64 y.o. 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 #Acute complicated UTI -ID consulted- Dr. Salazar -Meropenem 1g IV q8h -F/u urine culture -Afebrile, vitals WNL #R lung adenocarcinoma -Pt has enlarged nodules on CT spine -F/u heme onc recs-- r/o mets -CXR: hyperinflated. 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 - New Patient This patient is new to me today: Yes Date on this admission: 06/23/19 - Critical Care Critical Care patient: No ATTENDING PHYSICIAN STATEMENT I saw and evaluated the patient. I reviewed the resident's note and discussed the case with the resident. I agree with the resident's findings and plan as documented. SUBJECTIVE: OBJECTIVE: ASSESSMENT AND PLAN:
[2019-06-23] MEDS: POLYETHYLENE GLYCOL 3350 119 GM BTL PO SCH ×3 (02:26→21:42)
[2019-06-23] MEDS: MEROPENEM 1 GM in DEXTROSE 5%-WATER 100 ML IVPB SCH ×2 (02:59→10:08)
[2019-06-23] MEDS: morphine SULFATE 4 MG/ML VIAL IVPUSH PRN ×3 (06:06→18:47)
[2019-06-23] MEDS: NYSTATIN 100000 UNIT/GM TOPICAL OINTMENT 15 GM TUBE TP SCH (06:40)
[2019-06-23 07:58] LABS: HEMOGLOBIN 12.9 GM/dL (11.7-16.9); MCH 31.7 pg (25.7-33.7); MCHC 33.8 g/dl (32.0-35.9); MEAN CELL VOLUME 93.9 fl (80-96); MEAN PLT VOLUME 8.4 fl (7.5-11.1); PLATELET COUNT 721 K/MM3 (134-434); RBC 4.05 M/mm3 (4.00-5.60); RDW 14.7 % (11.9-15.9); WHITE BLOOD COUNT 19.5 K/mm3 (4.0-10.0)
[2019-06-23 08:17] LABS: ALBUMIN 2.6 g/dl (3.4-5.0); BILIRUBIN,TOTAL 0.8 mg/dL (0.2-1); BLOOD UREA NITROGEN 8.6 mg/dL (7-18); CALCIUM 8.6 mg/dL (8.5-10.1); CREATININE 0.6 mg/dL (0.55-1.3); PHOSPHOROUS 2.6 mg/dL (2.5-4.9); POTASSIUM 3.6 mmol/L (3.5-5.1); TOT PROT 6.6 g/dl (6.4-8.2)
[2019-06-23] MEDS ORDERED: DEXTROSE 5%-WATER 100 ML IVPB ONE (09:14)
[2019-06-23] MEDS ORDERED: MEROPENEM 1 GM VIAL (RESTRICTED TO ID) IVPB ONE (09:14)
[2019-06-23] MEDS: ENOXAPARIN NA (PORCINE) 40 MG/0.4 ML DISP.SYRIN SQ SCH (10:08)
[2019-06-23] MEDS: LACTOBACILLUS ACIDOPHILUS 1 TABLET PO SCH (10:08)
[2019-06-23] MEDS: metoPROLOL SUCCINATE 25 MG TAB.SR.24H (FP) PO SCH (10:08)
--- NOTE | 2019-06-23 11:04 | EKG ---
Test Reason : Blood Pressure : / mmHG Vent. Rate : 067 BPM Atrial Rate : 067 BPM P-R Int : 112 ms QRS Dur : 076 ms QT Int : 424 ms P-R-T Axes : 061 067 075 degrees QTc Int : 448 ms POOR DATA QUALITY, INTERPRETATION MAY BE ADVERSELY AFFECTED NORMAL SINUS RHYTHM NORMAL ECG WHEN COMPARED WITH ECG OF 14-JUN-2019 15:22, T WAVE INVERSION NOW EVIDENT IN ANTERIOR LEADS Confirmed by NYLA JOHNSTON, JUAN ([id number]) on 06/23/2019 11:03:55 AM Referred By: Confirmed By:JUAN REDMOND MD
--- NOTE | 2019-06-23 12:37 | CON.ID ---
Consult Consult Specialty:: infectious diseases Referred by:: Reason for Consultation:: uti,leukocytosis - History of Present Illness Chief Complaint: pain in the left leg,back pain History of Present Illness: 64 y.o. M PMH COPD, R lung adenocarcinoma , paraplegia 2/2 spinal cord transection T2-T4 , neurogenic bladder, recurrent UTIs, hypotension, recent admission at [facility] s/p left leg dital tibial fracture ). Pt presenting for 05/18 constant back pain. The patient has chronic pain, but this back pain started suddenly 2-3 days ago and has increased in severity over the past day. . Pt tried morphine x3 tablets 20mg each with no improvement of the pain. Lying on his R side alleviates the pain a little; lying flat on his back or L side make the pain more severe. He has never had this type of pain in the past. Patient routinely uses a brambila cath d/t neurogenic bladder. Denie KIRAN/ fevers/ chills/ N/ V/D/ abdominal pain. 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 SPECIALIST: Yes: Other (paraplegia due to accidental fall (T2 spinal fracture)) Gastrointestinal: Yes: Other (Hepatic hemangiomas) Renal/: Yes: Other (Bladder dysfunction) Infectious Disease: Yes: Other (multiple UTIs Pseudomonas) Musculoskeletal: Yes: Paraplegia, Other (Chronic pain) - Past Surgical History Past Surgical History: Yes: Splenectomy - Alcohol/Substance Use Hx Alcohol Use: No History of Substance Use: reports: Marijuana - Smoking History Smoking history: Former smoker Have you smoked in the past 12 months: No Aproximately how many cigarettes per day: 3 If you are a former smoker, when did you quit?: 1985 - Social History Usual Living Arrangement: With Significant Other 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 ([facility] (24hr)) History of Recent Travel: No Home Medications - Allergies Allergies/Adverse Reactions: Allergies Allergy/AdvReac Type Severity Reaction Status Date / Time No Known Allergies Allergy Verified 06/22/19 13:03 - Home Medications Home Medications: Ambulatory Orders Diazepam [Valium] 10 mg PO TID PRN tablet MDD 30mg 06/17/18 Morphine 10 mg/5 ml Liquid [Morphine 10 mg/5 mL Liquid -] 20 mg PO Q4H MDD 60mg 06/14/19 Bacitracin - [Bacitracin Topical Ointment -] 1 applic TP HS tube 06/17/19 Heparin - 5,000 unit SQ TID vial 06/17/19 Lactobacillus Acidophilus [Bacid -] 1 tab PO DAILY tab 06/17/19 Lidocaine Patch Removal [Lidoderm Patch Removal] 1 each MC DAILY@2200 each 06/26 Metoprolol Succinate [Toprol XL -] 25 mg PO DAILY tab.sr.24h 06/17/19 Nystatin Ointment [Mycostatin Ointment -] 1 applic TP AM applic 06/17/19 Polyethylene Glycol 3350 [Miralax 119 gm Btl -] 17 gm PO BID bottle 06/17/19 Review of Systems - Review of Systems Constitutional: reports: No Symptoms Eyes: reports: No Symptoms HENT: reports: No Symptoms Neck: reports: No Symptoms Cardiovascular: reports: No Symptoms Respiratory: reports: No Symptoms Gastrointestinal: reports: No Symptoms Genitourinary: reports: No Symptoms Musculoskeletal: reports: Back Pain Integumentary: reports: No Symptoms Neurological: reports: No Symptoms Endocrine: reports: No Symptoms Hematology/Lymphatic: reports: No Symptoms Psychiatric: reports: No Symptoms Physical Exam Vital Signs: Vital Signs Temperature 98 F 06/23/19 10:00 Pulse Rate 79 06/23/19 10:00 Respiratory Rate 16 06/23/19 10:00 Blood Pressure 123/78 06/23/19 10:00 O2 Sat by Pulse Oximetry (%) 94 L 06/23/19 02:44 Constitutional: Yes: No Distress, Calm, Thin Eyes: Yes: Conjunctiva Clear Cardiovascular: Yes: Regular Rate and Rhythm Respiratory: Yes: Regular, CTA Bilaterally Gastrointestinal: Yes: Normal Bowel Sounds, Soft Musculoskeletal: Yes: Back Pain Extremities: Yes: Other Wound/Incision: Yes: Dressing Dry and Intact Neurological: Yes: Alert, Oriented Psychiatric: Yes: Alert, Oriented Labs: CBC, BMP 06/23/19 07:30 06/23/19 07:30 Imaging - Results Chest X-ray: Report Reviewed, Image Reviewed Cat Scan: Report Reviewed, Image Reviewed Assessment/Plan 64-year-old male with a past medical history of COPD, right lung adenocarcinoma (not treated), 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 lung mass uti back pain leukocytosis plan will start patient on abx await for cx reports monitor wbc further work up of lunf nodule
[2019-06-23] MEDS: PIPERACILLIN/TAZOB 3.375 GM 3.375 GM in DEXTROSE 5%-WATER - 50 ML IVPB SCH ×2 (14:00→17:31)
[2019-06-23] MEDS ORDERED: PIPERACILLIN/TAZOBACTAM 3.375 GM VIAL IVPB ONE ×2 (14:37→17:08)
[2019-06-23] MEDS ORDERED: DEXTROSE 5%-WATER - 50 ML IVPB ONE ×2 (14:38→17:08)
[2019-06-23] MEDS: diazePAM 5 MG TABLET PO PRN (16:00)
--- NOTE | 2019-06-23 16:12 | PN ---
Physical Exam: SUBJECTIVE: Patient seen and examined. offered no complaints. OBJECTIVE: Vital Signs Period Temp Pulse Resp BP Sys/Roche Pulse Ox Last 24 Hr 97.8 F-99.5 F 59-84 16-20 117-146/63-92 94-96 GENERAL: Awake, alert, and fully oriented, in no acute distress. HEAD: Normal with no signs of trauma. EYES: Pupils equal, round and reactive to light, extraocular movements intact, sclera anicteric, conjunctiva clear. No lid lag. EARS, NOSE, THROAT: oropharynx clear without exudates. Moist mucous membranes. LUNGS: Breath sounds equal, clear to auscultation bilaterally. No wheezes, and no crackles. No accessory muscle use. HEART: Regular rate and rhythm, normal S1 and S2 without murmur, rub or gallop. ABDOMEN: Soft, nontender, mildly distended, normoactive bowel sounds, no guarding, no rebound, no masses. No hepatomegaly or splenomegaly. UPPER EXTREMITIES: 2+ pulses, warm, well-perfused. No cyanosis. No clubbing. No peripheral edema. LOWER EXTREMITIES: 2+ pulses, warm, well-perfused. BLE significantly atrophied with splint around left knee and leg, distal pulses present NEUROLOGICAL: Cranial nerves II-XII intact. Normal speech. gait not observed Laboratory Results - last 24 hr 06/22/19 06/22/19 06/22/19 15:10 15:10 15:10 WBC RBC Hgb Hct MCV MCH MCHC RDW Plt Count MPV PT with INR INR Sodium Cancelled Potassium Cancelled Chloride Cancelled Carbon Dioxide Cancelled Anion Gap Cancelled BUN Cancelled Creatinine Cancelled Est GFR (CKD-EPI)AfAm Cancelled Est GFR (CKD-EPI)NonAf Cancelled Random Glucose Cancelled Calcium Cancelled Phosphorus Magnesium Total Bilirubin Cancelled AST Cancelled ALT Cancelled Alkaline Phosphatase Cancelled Creatine Kinase Cancelled Troponin I Cancelled Total Protein Cancelled Albumin Cancelled Lipase Urine Color Yellow Urine Appearance Cloudy Urine pH 6.0 Ur Specific [place] 1.010 Urine Protein Negative Urine Glucose (UA) Negative Urine Ketones Negative Urine Blood Negative Urine Nitrite Negative Urine Bilirubin Negative Urine Urobilinogen 0.2 Ur Leukocyte Esterase 3+ H Urine WBC (Auto) 235 Urine RBC (Auto) 3 Urine Casts (Auto) 2 U Epithel Cells (Auto) 3.2 Urine Bacteria (Auto) 653.5 Urine Yeast (Auto) None 06/22/19 06/22/19 06/22/19 15:10 17:00 17:00 WBC RBC Hgb Hct MCV MCH MCHC RDW Plt Count MPV PT with INR Cancelled 12.00 INR Cancelled 1.02 Sodium 140 Potassium 4.0 Chloride 102 Carbon Dioxide 29 Anion Gap 8 BUN 5.9 L Creatinine 0.6 Est GFR (CKD-EPI)AfAm 121.43 Est GFR (CKD-EPI)NonAf 104.77 Random Glucose 85 Calcium 8.7 Phosphorus Magnesium Total Bilirubin 0.6 AST 17 ALT 17 Alkaline Phosphatase 129 H Creatine Kinase Troponin I Total Protein 7.1 Albumin 2.7 L Lipase 375 Urine Color Urine Appearance Urine pH Ur Specific [place] Urine Protein Urine Glucose (UA) Urine Ketones Urine Blood Urine Nitrite Urine Bilirubin Urine Urobilinogen Ur Leukocyte Esterase Urine WBC (Auto) Urine RBC (Auto) Urine Casts (Auto) U Epithel Cells (Auto) Urine Bacteria (Auto) Urine Yeast (Auto) 06/23/19 06/23/19 07:30 07:30 WBC 19.5 H RBC 4.05 Hgb 12.9 Hct 38.0 MCV 93.9 MCH 31.7 MCHC 33.8 RDW 14.7 Plt Count 721 H MPV 8.4 PT with INR INR Sodium 139 Potassium 3.6 Chloride 104 Carbon Dioxide 27 Anion Gap 9 BUN 8.6 Creatinine 0.6 Est GFR (CKD-EPI)AfAm 121.43 Est GFR (CKD-EPI)NonAf 104.77 Random Glucose 119 H Calcium 8.6 Phosphorus 2.6 Magnesium 2.0 Total Bilirubin 0.8 AST 13 L ALT 15 Alkaline Phosphatase 125 H Creatine Kinase Troponin I Total Protein 6.6 Albumin 2.6 L Lipase Urine Color Urine Appearance Urine pH Ur Specific [place] Urine Protein Urine Glucose (UA) Urine Ketones Urine Blood Urine Nitrite Urine Bilirubin Urine Urobilinogen Ur Leukocyte Esterase Urine WBC (Auto) Urine RBC (Auto) Urine Casts (Auto) U Epithel Cells (Auto) Urine Bacteria (Auto) Urine Yeast (Auto) Active Medications Generic Name Dose Route Start Last Admin Trade Name Freq PRN Reason Stop Dose Admin Bacitracin 1 applic 06/23/19 22:00 Bacitracin - TP HS ZAIRA Diazepam 10 mg 06/23/19 00:49 Valium - PO TID PRN ANXIETY Enoxaparin Sodium 40 mg 06/23/19 10:00 06/23/19 10:08 Lovenox - SQ Not Given DAILY ZAIRA Meropenem 1 gm/ Dextrose 100 mls @ 200 mls/hr 06/23/19 18:00 IVPB Q8H-IV ZAIRA Piperacillin Sod/Tazobactam 50 mls @ 100 mls/hr 06/23/19 14:00 06/23/19 14:00 Sod 3.375 gm/ Dextrose IVPB 100 mls/hr Q8H-IV ZAIRA Administration Protocol Lactobacillus Acidophilus 1 tab 06/23/19 10:00 06/23/19 10:08 Bacid - PO 1 tab DAILY ZAIRA Administration Metoprolol Succinate 25 mg 06/23/19 10:00 06/23/19 10:08 Toprol Xl - PO 25 mg DAILY ZAIRA Administration Morphine Sulfate 4 mg 06/23/19 05:23 06/23/19 11:44 Morphine Sulfate IVPUSH 4 mg Q6H PRN Administration PAIN LEVEL 7 - 10 Nystatin 1 applic 06/23/19 07:00 06/23/19 06:40 Mycostatin Ointment - TP Not Given AM [facility] Polyethylene Glycol 17 gm 06/23/19 01:00 06/23/19 10:08 Miralax (For Daily Use) - PO Not Given BID [facility] ASSESSMENT/PLAN: 64 y.o. 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 UTI Dr. 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 - New Patient This patient is new to me today: Yes Date on this admission: 06/23/19 - Critical Care Critical Care patient: No - Discharge Referral Referred to [facility] No ATTENDING PHYSICIAN STATEMENT I saw and evaluated the patient. I reviewed the resident's note and discussed the case with the resident. I agree with the resident's findings and plan as documented. SUBJECTIVE: OBJECTIVE: ASSESSMENT AND PLAN:
[2019-06-23] MEDS ORDERED: MEROPENEM 1 GM in DEXTROSE 5%-WATER 100 ML IVPB SCH (18:00)
--- NOTE | 2019-06-23 18:59 | CONSULT ---
Consult Consult Specialty:: Hematology and Oncology Referred by:: Dr. 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 In the emergency department, urinalysis was indicative of a urinary tract infection. CT of the lumbar and sacral spine was taken to the emergency department to rule out acute fracture. The CT showed that his lung nodules which were previously noted on CT have since enlarged. Oncology was consulted for assistance with further workup and treatment. On interview, the patient was found lying in bed comfortably in no apparent distress. The patient was unable to explain why he was in the hospital. Patient believes that he is in the hospital for his tibial fracture. When questioned regarding his follow-up, the patient states that he follows up with Dr. Kang regularly. The patient admits that he did not follow-up with an oncologist. He is aware of his diagnosis and states that he was previously told that his cancer was "inoperable". He received no other treatment and cannot recall ever having a biopsy. Patient endorses smoking two packs per day for approximately 25 years and states that he quit approximately 30 years ago. The results of his CT scan were explained to the patient. He states that he is amenable to further workup and diagnosis as well as treatment in the future. 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 (paraplegia due to accidental fall (T2 spinal fracture)) Gastrointestinal: Yes: Other (Hepatic hemangiomas) Renal/: Yes: Other (Bladder dysfunction) Infectious Disease: Yes: Other (multiple UTIs Pseudomonas) Musculoskeletal: Yes: Paraplegia, Other (Chronic pain) - Past Surgical History Past Surgical History: Yes: Splenectomy - Alcohol/Substance Use Hx Alcohol Use: No History of Substance Use: reports: Marijuana - Smoking History Smoking history: Former smoker Have you smoked in the past 12 months: No Aproximately how many cigarettes per day: 3 If you are a former smoker, when did you quit?: 1985 - Social History Usual Living Arrangement: With Significant Other 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 ([employer] (24hr)) History of Recent Travel: No Home Medications - Allergies Allergies/Adverse Reactions: Allergies Allergy/AdvReac Type Severity Reaction Status Date / Time No Known Allergies Allergy Verified 06/22/19 13:03 - Home Medications Home Medications: Ambulatory Orders Diazepam [Valium] 10 mg PO TID PRN tablet MDD 30mg 06/17/18 Morphine 10 mg/5 ml Liquid [Morphine 10 mg/5 mL Liquid -] 20 mg PO Q4H MDD 60mg 06/14/19 Bacitracin - [Bacitracin Topical Ointment -] 1 applic TP HS tube 06/17/19 Heparin - 5,000 unit SQ TID vial 06/17/19 Lactobacillus Acidophilus [Bacid -] 1 tab PO DAILY tab 06/17/19 Lidocaine Patch Removal [Lidoderm Patch Removal] 1 each MC DAILY@2200 each 06/26 Metoprolol Succinate [Toprol XL -] 25 mg PO DAILY tab.sr.24h 06/17/19 Nystatin Ointment [Mycostatin Ointment -] 1 applic TP AM applic 06/17/19 Polyethylene Glycol 3350 [Miralax 119 gm Btl -] 17 gm PO BID bottle 06/17/19 Review of Systems - Review of Systems Constitutional: denies: Chills, Fever Cardiovascular: denies: Chest Pain, Palpitations, Shortness of Breath Respiratory: denies: Cough, SOB, SOB on Exertion Gastrointestinal: denies: Abdominal Pain Musculoskeletal: reports: Back Pain, Extremity Pain Neurological: denies: Change in LOC Hematology/Lymphatic: denies: Excessive Bleeding Physical Exam Vital Signs: Vital Signs Temperature 99.5 F 06/23/19 14:56 Pulse Rate 73 06/23/19 14:56 Respiratory Rate 18 06/23/19 14:56 Blood Pressure 117/63 06/23/19 14:56 O2 Sat by Pulse Oximetry (%) 96 06/23/19 09:00 Constitutional: Yes: Well Nourished, No Distress, Calm HENT: Yes: Atraumatic, Normocephalic Cardiovascular: Yes: Regular Rate and Rhythm, S1, S2. No: Gallop, Murmur, Rub Respiratory: Yes: Regular, CTA Bilaterally Gastrointestinal: Yes: Normal Bowel Sounds, Soft. 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 #Worsening lung masses on spinal CT -incidental finding -suggest dedicated CT chest to better evaluate nodules -patient may require CT of the abdomen and pelvis as well for full staging -once patient staged, will discuss options as far as treatment -with history of lung adenocarcinoma and unclear follow-up, this is likely metastatic disease with the primary tumor being lung -treatment will have to be deferred until acute infection resolved. #Back pain likely secondary to previous spinal injury versus pyelonephritis -UA in emergency Department indicative of UTI -antibiotics per infectious disease -patient on home pain control regimen #Tibial-fibular fracture -ortho onboard.
--- NOTE | 2019-06-23 19:12 | PN ---
Teaching Attending Note Name of Resident: Casimiro Diamond ATTENDING PHYSICIAN STATEMENT I saw and evaluated the patient. I reviewed the resident's note and discussed the case with the resident. I agree with the resident's findings and plan as documented. SUBJECTIVE: no fever or chills. no KIRAN . Reason fro visit is bumping his L leg not for back pain as his chronic upper pain is at his base line . patient changes his story frequently OBJECTIVE: NAD, awake, alert, MMM. Cv: RRR, no MRG Lungs: CTAB Abd: NT, ND, NL BS ,soft. Ext: muscle atrophy on RLE. dry skin. no edema.L leg in cast. ASSESSMENT AND PLAN: Unfortunate 64 y/o man with h/o spinal cord injury at level of T4, paraplegia, neurogenic bladder, recurrent UTIs, COPD, chronic pain, splenectomy, adenocarcinoma of R lung, recent Tib/Fib fx and other medical problems who presented from home after bumping his L leg and foot against the wall 1- leukocytosis , concern fro pyelo 2- Recent L TIb/Fib fx. with trauma again 3- Chronic back pain. not changed plan : - obtain renal US - send blood cx - d/w ID , zosyn - no change in chronic back pain . - monitor CBC - Not celar about this repeat trauma to L leg. will get repeat xray of Tib/Fib - ortho to evaluate as he did not follow as out pt - anilax
--- NOTE | 2019-06-23 20:34 | PN ---
Teaching Attending Note Name of Resident: Deon Ang ATTENDING PHYSICIAN STATEMENT I saw and evaluated the patient. I reviewed the resident's note and discussed the case with the resident. I agree with the resident's findings and plan as documented. ASSESSMENT AND PLAN: 64 y/o with h/o spinal cord injury at level of T4, paraplegia, neurogenic bladder, recurrent UTIs, COPD, chronic pain, splenectomy, recent Tib/Fib fx and other medical problems who presented from home after bumping his L leg and foot against the wall metastatic lung cancer, adenoca stage IV diagnosed . Samples were insufficient for mutational analysis [id number]. ROS neg. PAtient agreeable for IR guided biopsy for next gen sequencing for other mutation analysis Discussed various options with this patient with poor performance status, advanced stage lung cnacer with comorbidities--paraplegia/UTIs, poor social support
[2019-06-23] MEDS: BACITRACIN 15 GM TUBE TOPICAL OINTMENT TP SCH (22:50)
[2019-06-24] MEDS ORDERED: DEXTROSE 5%-WATER - 50 ML IVPB ONE ×3 (01:05→17:20)
[2019-06-24] MEDS ORDERED: PIPERACILLIN/TAZOBACTAM 3.375 GM VIAL IVPB ONE ×3 (01:05→17:20)
[2019-06-24] MEDS: PIPERACILLIN/TAZOB 3.375 GM 3.375 GM in DEXTROSE 5%-WATER - 50 ML IVPB SCH ×3 (01:19→18:00)
[2019-06-24] MEDS: morphine SULFATE 4 MG/ML VIAL IVPUSH PRN (01:22)
[2019-06-24] MEDS: diazePAM 5 MG TABLET PO PRN (04:39)
[2019-06-24] MEDS: NYSTATIN 100000 UNIT/GM TOPICAL OINTMENT 15 GM TUBE TP SCH (07:02)
[2019-06-24] MEDS ORDERED: PT OWN MED DRAWER 7, Y5N ONE (10:24)
[2019-06-24] MEDS: LACTOBACILLUS ACIDOPHILUS 1 TABLET PO SCH (10:37)
[2019-06-24] MEDS: POLYETHYLENE GLYCOL 3350 119 GM BTL PO SCH ×2 (10:37→21:30)
[2019-06-24] MEDS: ENOXAPARIN NA (PORCINE) 40 MG/0.4 ML DISP.SYRIN SQ SCH ×2 (10:37→10:45)
[2019-06-24] MEDS: metoPROLOL SUCCINATE 25 MG TAB.SR.24H (FP) PO SCH ×2 (10:37→10:41)
[2019-06-24] MEDS ORDERED: MORPHINE ORAL CONCENTRATE 20 MG/ML - 30ML BOTTLE PO PRN (11:55)
--- NOTE | 2019-06-24 12:04 | PN ---
Teaching Attending Note Name of Resident: Casimiro Diamond ATTENDING PHYSICIAN STATEMENT I saw and evaluated the patient. I reviewed the resident's note and discussed the case with the resident. I agree with the resident's findings and plan as documented. SUBJECTIVE: No fever or chills. has pain in upper back ( chronic ) . no N/V , no painin legs . OBJECTIVE: NAD, awake, alert, MMM. Cv: RRR, no MRG Lungs: CTAB Abd: NT, ND, NL BS ,soft. Ext: muscle atrophy on RLE. dry skin. no edema.L leg in cast. ASSESSMENT AND PLAN: Unfortunate 64 y/o man with h/o spinal cord injury at level of T4, paraplegia, neurogenic bladder, recurrent UTIs, COPD, chronic pain, splenectomy, adenocarcinoma of R lung, recent Tib/Fib fx and other medical problems who presented from home after bumping his L leg and foot against the wall 1- Leukocytosis, concern for pyelo 2- Recent L Tib/Fib fx. with recurrent trauma 3- Chronic back pain. not changed plan : - US with no abscess or stranding - follow CBC today - follow blood cx and urine cx - cont zosyn - no change in chronic back pain. chnage IV morphine to his home dose po - xray of Tib/Fib, pending. ortho eval pending - appreciate Onc help. will get CT C/A/P for staging - he is agreeable for Bx. will d/w heme about arrangements - lovenox . will hold if bx planned tomorrow
[2019-06-24 12:35] LABS: BASO % 0.3 % (0-2.0); HEMATOCRIT 38.4 % (35.4-49); HEMOGLOBIN 12.8 GM/dL (11.7-16.9); LYMPH % 5.6 % (8-40); MCH 31.5 pg (25.7-33.7); MCHC 33.4 g/dl (32.0-35.9); MEAN CELL VOLUME 94.5 fl (80-96); MONO % 7.2 % (3.8-10.2); NEUT % 85.9 % (42.8-82.8); PLATELET COUNT 722 K/MM3 (134-434); RBC 4.06 M/mm3 (4.00-5.60); RDW 14.9 % (11.9-15.9); WHITE BLOOD COUNT 15.8 K/mm3 (4.0-10.0)
[2019-06-24] MEDS: morphine SULFATE 10 MG/5 ML UNIT-DOSE CUP PO PRN ×2 (12:37→21:33)
--- NOTE | 2019-06-24 12:58 | PN ---
Progress Note, Physician History of Present Illness: patient stable back pain - Current Medication List Current Medications: Active Medications Bacitracin (Bacitracin -) 1 applic TP HS [facility] Last Admin: 06/23/19 22:50 Dose: Not Given Diazepam (Valium -) 10 mg PO TID PRN PRN Reason: ANXIETY Last Admin: 06/24/19 04:39 Dose: 10 mg Enoxaparin Sodium (Lovenox -) 40 mg SQ DAILY [facility] Last Admin: 06/24/19 10:45 Dose: Not Given Piperacillin Sod/Tazobactam (Sod 3.375 gm/ Dextrose) 50 mls @ 100 mls/hr IVPB Q8H-IV [facility]; Protocol Last Admin: 06/24/19 10:38 Dose: 100 mls/hr Lactobacillus Acidophilus (Bacid -) 1 tab PO DAILY [facility] Last Admin: 06/24/19 10:37 Dose: 1 tab Metoprolol Succinate (Toprol Xl -) 25 mg PO DAILY [facility] Last Admin: 06/24/19 10:41 Dose: Not Given Morphine Sulfate (Morphine 10 Mg/5 Ml Liquid) 20 mg PO Q8H PRN PRN Reason: PAIN LEVEL 7 - 10 Last Admin: 06/24/19 12:37 Dose: 20 mg Nystatin (Mycostatin Ointment -) 1 applic TP AM [facility] Last Admin: 06/24/19 07:02 Dose: Not Given Polyethylene Glycol (Miralax (For Daily Use) -) 17 gm PO BID [facility] Last Admin: 06/24/19 10:37 Dose: Not Given - Objective Vital Signs: Vital Signs Temperature 98.4 F 06/24/19 05:20 Pulse Rate 63 06/24/19 05:20 Respiratory Rate 20 06/24/19 05:20 Blood Pressure 128/62 06/24/19 05:20 O2 Sat by Pulse Oximetry (%) 96 06/23/19 21:00 Constitutional: Yes: No Distress, Calm Cardiovascular: Yes: Regular Rate and Rhythm Respiratory: Yes: Regular, CTA Bilaterally Gastrointestinal: Yes: Normal Bowel Sounds, Soft Musculoskeletal: Yes: Back Pain, Other (deformity of the spine) Extremities: Yes: Other Labs: CBC, BMP 06/24/19 12:05 INR, PTT INR 1.02 (0.83-1.09) 06/22/19 17:00 Assessment/Plan 64-year-old male with a past medical history of COPD, right lung adenocarcinoma (not treated), 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 lung mass uti back pain plan continue abx await for identification of the organism
[2019-06-24 12:59] LABS: CALCIUM 8.7 mg/dL (8.5-10.1); CREATININE 0.6 mg/dL (0.55-1.3); MAGNESIUM 2.1 mg/dL (1.8-2.4); PHOSPHOROUS 2.5 mg/dL (2.5-4.9); POTASSIUM 4.2 mmol/L (3.5-5.1)
--- NOTE | 2019-06-24 14:47 | CON.ORTH ---
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: Other (paraplegia due to accidental fall (T2 spinal fracture)) Gastrointestinal: Yes: Other (Hepatic hemangiomas) Renal/: Yes: Other (Bladder dysfunction) Infectious Disease: Yes: Other (multiple UTIs Pseudomonas) Musculoskeletal: Yes: Paraplegia, Other (Chronic pain) - Past Surgical History Past Surgical History: Yes: Splenectomy - Alcohol/Substance Use Hx Alcohol Use: No History of Substance Use: reports: Marijuana - Smoking History Smoking history: Former smoker Have you smoked in the past 12 months: No Aproximately how many cigarettes per day: 3 If you are a former smoker, when did you quit?: 1985 - Social History Usual Living Arrangement: With Significant Other 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 ([facility] ([facility]hr)) History of Recent Travel: No Home Medications - Allergies Allergies/Adverse Reactions: Allergies Allergy/AdvReac Type Severity Reaction Status Date / Time No Known Allergies Allergy Verified 06/22/19 13:03 - Home Medications Home Medications: Ambulatory Orders Diazepam [Valium] 10 mg PO TID PRN tablet MDD 30mg 06/17/18 Morphine 10 mg/5 ml Liquid [Morphine 10 mg/5 mL Liquid -] 20 mg PO Q4H MDD 60mg 06/14/19 Bacitracin - [Bacitracin Topical Ointment -] 1 applic TP HS tube 06/17/19 Heparin - 5,000 unit SQ TID vial 06/17/19 Lactobacillus Acidophilus [Bacid -] 1 tab PO DAILY tab 06/17/19 Lidocaine Patch Removal [Lidoderm Patch Removal] 1 each MC DAILY@2200 each 06/26 Metoprolol Succinate [Toprol XL -] 25 mg PO DAILY tab.sr.24h 06/17/19 Nystatin Ointment [Mycostatin Ointment -] 1 applic TP AM applic 06/17/19 Polyethylene Glycol 3350 [Miralax 119 gm Btl -] 17 gm PO BID bottle 06/17/19 Physical Exam for Ortho Vital Signs: Vital Signs Temperature 98.4 F 06/24/19 05:20 Pulse Rate 63 06/24/19 05:20 Respiratory Rate 20 06/24/19 05:20 Blood Pressure 128/62 06/24/19 05:20 O2 Sat by Pulse Oximetry (%) 96 06/23/19 21:00 Labs: CBC, BMP 06/24/19 12:05 06/24/19 12:05 INR, PTT INR 1.02 (0.83-1.09) 06/22/19 17:00 - Lower Extremity Leg: Yes: Other (splint intact) Imaging - Results X-ray: Image Reviewed Assessment/Plan 64 y.o. M PMH COPD, R lung adenocarcinoma (no chemo/rads/ surgery), paraplegia 2 /2 spinal cord transection T2-T4 in 1980s, neurogenic bladder, recurrent UTIs, hypotension, recent admission at [facility] s/p left leg dital tibial fracture (d/c;d 06/18/19). Pt presenting for 05/18 constant back pain. The patient has chronic pain, but this back pain started suddenly 2-3 days ago and has increased in severity over the past day. Repeat xrays were done to assess the fx. a/p left proximal tib/fib fx- unchanged from previous xrays continue splint NTD pain management consult ok to d/c from ortho pov f/u in 2-3 week as outpt d/w Dr. Daniels
--- NOTE | 2019-06-24 16:08 | PN ---
Physical Exam: SUBJECTIVE: Patient seen and examined. Pt. states that his night went badly because he could not get any sleep because of the coldness of his room, did not like the food and his condom catheter came off. No acute events overnight. OBJECTIVE: Vital Signs Period Temp Pulse Resp BP Sys/Roche Pulse Ox Last 24 Hr 95.5 F-98.4 F 63-66 20-20 107-128/57-62 96 GENERAL: Awake, alert, and fully oriented, in no acute distress. HEAD: Normal with no signs of trauma. EYES: Pupils equal, round and reactive to light, extraocular movements intact, sclera anicteric, conjunctiva clear. No lid lag. EARS, NOSE, THROAT: oropharynx clear without exudates. Moist mucous membranes. LUNGS: Breath sounds equal, clear to auscultation bilaterally. No wheezes, and no crackles. No accessory muscle use. HEART: Regular rate and rhythm, normal S1 and S2 without murmur, rub or gallop. ABDOMEN: Soft, nontender, mildly distended, normoactive bowel sounds, no guarding, no rebound, no masses. No hepatomegaly or splenomegaly. UPPER EXTREMITIES: 2+ pulses, warm, well-perfused. No cyanosis. No clubbing. No peripheral edema. LOWER EXTREMITIES: 2+ pulses, warm, well-perfused. BLE significantly atrophied with splint around left knee and leg, distal pulses present NEUROLOGICAL: Cranial nerves II-XII intact. Normal speech. gait not observed Laboratory Results - last 24 hr 06/24/19 06/24/19 12:05 12:05 WBC 15.8 H RBC 4.06 Hgb 12.8 Hct 38.4 MCV 94.5 MCH 31.5 MCHC 33.4 RDW 14.9 Plt Count 722 H MPV 9.0 Absolute Neuts (auto) 13.6 H Neutrophils % 85.9 H Lymphocytes % 5.6 L D Monocytes % 7.2 Eosinophils % 1.0 Basophils % 0.3 Nucleated RBC % 0 Sodium 136 Potassium 4.2 Chloride 100 Carbon Dioxide 28 Anion Gap 8 BUN 10.0 Creatinine 0.6 Est GFR (CKD-EPI)AfAm 121.43 Est GFR (CKD-EPI)NonAf 104.77 Random Glucose 93 Calcium 8.7 Phosphorus 2.5 Magnesium 2.1 Active Medications Current Medications Bacitracin (Bacitracin -) 1 applic TP HS [facility] Last Admin: 06/24/19 21:30 Dose: Not Given Diazepam (Valium -) 10 mg PO TID PRN PRN Reason: ANXIETY Last Admin: 06/25/19 02:55 Dose: 10 mg Enoxaparin Sodium (Lovenox -) 40 mg SQ DAILY [facility] Last Admin: 06/24/19 10:45 Dose: Not Given Piperacillin Sod/Tazobactam (Sod 3.375 gm/ Dextrose) 50 mls @ 100 mls/hr IVPB Q8H-IV [facility]; Protocol Last Admin: 06/25/19 02:50 Dose: 100 mls/hr Lactobacillus Acidophilus (Bacid -) 1 tab PO DAILY [facility] Last Admin: 06/24/19 10:37 Dose: 1 tab Metoprolol Succinate (Toprol Xl -) 25 mg PO DAILY [facility] Last Admin: 06/24/19 10:41 Dose: Not Given Morphine Sulfate (Morphine 10 Mg/5 Ml Liquid) 20 mg PO Q8H PRN PRN Reason: PAIN LEVEL 7 - 10 Last Admin: 06/25/19 05:11 Dose: 20 mg Nystatin (Mycostatin Ointment -) 1 applic TP AM [facility] Last Admin: 06/24/19 07:02 Dose: Not Given Polyethylene Glycol (Miralax (For Daily Use) -) 17 gm PO BID [facility] Last Admin: 06/24/19 21:30 Dose: Not Given ASSESSMENT/PLAN: 64 y.o. M PMH COPD, R lung adenocarcinoma (no chemo/rads/ surgery), paraplegia 2 /2 spinal cord transection T2-T4 in , neurogenic bladder, recurrent UTIs, hypotension, recent admission at [facility] s/p left leg dital tibial fracture (d/c;d 06/18/19) presenting d/t back pain. UTI Dr. Salazar rec Meropenem 1g IV q8h F/u urine culture final and speciations blood cultures ordered renal U/S unremarkable Afebrile, vitals WNL no need for retirement abx per ID Tibial fracture Pt has not followed up with Ortho yet lower extremity XR, ankle &foot Xray - per Ortho read and consult Pt. stabe for d/c per Ortho, can collow up in 10-14 days as outpatient R lung adenocarcinoma Pt has enlarged nodules on CT spine Per Heme/ Onc Pt. 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 I reviewed the resident's note and discussed the case with the resident. I agree with the resident's findings and plan as documented. SUBJECTIVE: OBJECTIVE: ASSESSMENT AND PLAN:
[2019-06-24 17:49] LABS: ANISOCYTOSIS 0; MACROCYTOSIS 0; PLATELET ESTIMATE INCREASED
[2019-06-24] MEDS: BACITRACIN 15 GM TUBE TOPICAL OINTMENT TP SCH (21:30)
[2019-06-24 22:44] VITALS: BMI 20.3
[2019-06-25] MEDS ORDERED: DEXTROSE 5%-WATER - 50 ML IVPB ONE ×2 (02:32→10:34)
[2019-06-25] MEDS ORDERED: PIPERACILLIN/TAZOBACTAM 3.375 GM VIAL IVPB ONE ×2 (02:32→10:34)
[2019-06-25] MEDS: PIPERACILLIN/TAZOB 3.375 GM 3.375 GM in DEXTROSE 5%-WATER - 50 ML IVPB SCH ×2 (02:50→10:40)
[2019-06-25] MEDS: diazePAM 5 MG TABLET PO PRN ×2 (02:55→21:23)
[2019-06-25] MEDS: morphine SULFATE 10 MG/5 ML UNIT-DOSE CUP PO PRN ×2 (05:11→16:37)
[2019-06-25] MEDS: NYSTATIN 100000 UNIT/GM TOPICAL OINTMENT 15 GM TUBE TP SCH (07:20)
[2019-06-25 09:45] LABS: INR 0.99 (0.83-1.09); PROTHROMBIN TIME (PATIENT) 11.7 SEC (9.7-13.0)
[2019-06-25 09:47] LABS: ACTIVATED PTT 38.5 SECONDS (25.2-36.5)
[2019-06-25] MEDS: ENOXAPARIN NA (PORCINE) 40 MG/0.4 ML DISP.SYRIN SQ SCH (10:38)
[2019-06-25] MEDS: POLYETHYLENE GLYCOL 3350 119 GM BTL PO SCH ×2 (10:38→21:25)
[2019-06-25] MEDS: metoPROLOL SUCCINATE 25 MG TAB.SR.24H (FP) PO SCH (10:39)
[2019-06-25] MEDS: LACTOBACILLUS ACIDOPHILUS 1 TABLET PO SCH (10:41)
--- NOTE | 2019-06-25 13:10 | PN ---
Progress Note, Physician History of Present Illness: no complaints feels better - Current Medication List Current Medications: Active Medications Bacitracin (Bacitracin -) 1 applic TP HS [facility] Last Admin: 06/24/19 21:30 Dose: Not Given Diazepam (Valium -) 10 mg PO TID PRN PRN Reason: ANXIETY Last Admin: 06/25/19 02:55 Dose: 10 mg Enoxaparin Sodium (Lovenox -) 40 mg SQ DAILY [facility] Last Admin: 06/25/19 10:38 Dose: Not Given Piperacillin Sod/Tazobactam (Sod 3.375 gm/ Dextrose) 50 mls @ 100 mls/hr IVPB Q8H-IV [facility]; Protocol Last Admin: 06/25/19 10:40 Dose: 100 mls/hr Lactobacillus Acidophilus (Bacid -) 1 tab PO DAILY [facility] Last Admin: 06/25/19 10:41 Dose: 1 tab Metoprolol Succinate (Toprol Xl -) 25 mg PO DAILY [facility] Last Admin: 06/25/19 10:39 Dose: Not Given Morphine Sulfate (Morphine 10 Mg/5 Ml Liquid) 20 mg PO Q8H PRN PRN Reason: PAIN LEVEL 7 - 10 Last Admin: 06/25/19 05:11 Dose: 20 mg Nystatin (Mycostatin Ointment -) 1 applic TP AM [facility] Last Admin: 06/25/19 07:20 Dose: Not Given Polyethylene Glycol (Miralax (For Daily Use) -) 17 gm PO BID [facility] Last Admin: 06/25/19 10:38 Dose: Not Given - Objective Vital Signs: Vital Signs Temperature 98.4 F 06/25/19 10:00 Pulse Rate 85 06/25/19 10:00 Respiratory Rate 20 06/25/19 10:00 Blood Pressure 134/65 06/25/19 10:00 O2 Sat by Pulse Oximetry (%) 95 06/24/19 21:00 Constitutional: Yes: No Distress, Calm Cardiovascular: Yes: S1, S2 Respiratory: Yes: Regular, CTA Bilaterally Gastrointestinal: Yes: Normal Bowel Sounds, Soft Musculoskeletal: Yes: Other Extremities: Yes: Other (contracted) Wound/Incision: Yes: Dressing Dry and Intact Neurological: Yes: Alert, Oriented Labs: CBC, BMP 06/24/19 12:05 06/24/19 12:05 INR, PTT INR 0.99 (0.83-1.09) 06/25/19 07:50 Assessment/Plan 64-year-old male with a past medical history of COPD, right lung adenocarcinoma (not treated), 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 lung mass uti back pain leukocytosis plan continue abx will change to ceftazidine rest as per the team further plan from lung point of view monitor wbc
[2019-06-25 13:23] LABS: BASO % 0.2 % (0-2.0); EOS % 0.9 % (0-4.5); HEMATOCRIT 40.3 % (35.4-49); LYMPH % 3.8 % (8-40); MCH 30.9 pg (25.7-33.7); MCHC 32.2 g/dl (32.0-35.9); MEAN PLT VOLUME 9.2 fl (7.5-11.1); NEUT % 90.1 % (42.8-82.8); PLATELET COUNT 736 K/MM3 (134-434); RDW 14.6 % (11.9-15.9); WHITE BLOOD COUNT 18.8 K/mm3 (4.0-10.0)
[2019-06-25 13:49] LABS: BLOOD UREA NITROGEN 9.8 mg/dL (7-18); CALCIUM 8.6 mg/dL (8.5-10.1); CREATININE 0.8 mg/dL (0.55-1.3); MAGNESIUM 2.1 mg/dL (1.8-2.4); PHOSPHOROUS 3.2 mg/dL (2.5-4.9); POTASSIUM 3.9 mmol/L (3.5-5.1)
[2019-06-25] MEDS: CEFTAZIDIME PENTAHYDRATE 1 GM in DEXTROSE 5%-WATER - 50 ML IVPB SCH (17:56)
[2019-06-25] MEDS ORDERED: CEFTAZIDIME PENTAHYDRATE 1 GM in DEXTROSE 5%-WATER - 100 ML IVPB SCH (18:00)
--- NOTE | 2019-06-25 18:40 | PN ---
Physical Exam: SUBJECTIVE: Patient seen and examined.pt was noted to have chills however, this is not unusual for him. OBJECTIVE: Vital Signs Period Temp Pulse Resp BP Sys/Roche Pulse Ox Last 24 Hr 97.9 F-99.1 F 64-116 18-20 97-135/52-79 95-95 GENERAL: Awake, alert, and fully oriented, in no acute distress. HEAD: Normal with no signs of trauma. EYES: Pupils equal, round and reactive to light, extraocular movements intact, sclera anicteric, conjunctiva clear. No lid lag. EARS, NOSE, THROAT: oropharynx clear without exudates. Moist mucous membranes. LUNGS: Breath sounds equal, clear to auscultation bilaterally. No wheezes, and no crackles. No accessory muscle use. HEART: Regular rate and rhythm, normal S1 and S2 without murmur, rub or gallop. ABDOMEN: Soft, nontender, mildly distended, normoactive bowel sounds, no guarding, no rebound, no masses. No hepatomegaly or splenomegaly. UPPER EXTREMITIES: 2+ pulses, warm, well-perfused. No cyanosis. No clubbing. No peripheral edema. LOWER EXTREMITIES: 2+ pulses, warm, well-perfused. BLE significantly atrophied with splint around left knee and leg, distal pulses present NEUROLOGICAL: Cranial nerves II-XII intact. Normal speech. gait not observed Laboratory Results - last 24 hr 06/25/19 06/25/19 06/25/19 07:50 12:26 12:26 WBC 18.8 H RBC 4.20 Hgb 13.0 Hct 40.3 MCV 96.0 MCH 30.9 MCHC 32.2 RDW 14.6 Plt Count 736 H MPV 9.2 Absolute Neuts (auto) 17.0 H Neutrophils % 90.1 H Lymphocytes % 3.8 L D Monocytes % 5.0 Eosinophils % 0.9 Basophils % 0.2 Nucleated RBC % 0 PT with INR 11.70 INR 0.99 PTT (Actin FS) 38.5 H Sodium 138 Potassium 3.9 Chloride 100 Carbon Dioxide 28 Anion Gap 10 BUN 9.8 Creatinine 0.8 Est GFR (CKD-EPI)AfAm 107.89 Est GFR (CKD-EPI)NonAf 93.09 Random Glucose 86 Calcium 8.6 Phosphorus 3.2 Magnesium 2.1 Active Medications Generic Name Dose Route Start Last Admin Trade Name Freq PRN Reason Stop Dose Admin Bacitracin 1 applic 06/23/19 22:00 06/24/19 21:30 Bacitracin - TP Not Given HS [facility] Diazepam 10 mg 06/23/19 00:49 06/25/19 02:55 Valium - PO 10 mg TID PRN Administration ANXIETY Enoxaparin Sodium 40 mg 06/23/19 10:00 06/25/19 10:38 Lovenox - SQ Not Given DAILY [facility] Ceftazidime 1 gm/ Dextrose 50 mls @ 200 mls/hr 06/25/19 18:00 06/25/19 17:56 IVPB 200 mls/hr Q8H-IV [facility] Administration Protocol Lactobacillus Acidophilus 1 tab 06/23/19 10:00 06/25/19 10:41 Bacid - PO 1 tab DAILY [facility] Administration Metoprolol Succinate 25 mg 06/23/19 10:00 06/25/19 10:39 Toprol Xl - PO Not Given DAILY [facility] Morphine Sulfate 20 mg 06/24/19 12:27 06/25/19 16:37 Morphine 10 Mg/5 Ml Liquid PO 20 mg Q8H PRN Administration PAIN LEVEL 7 - 10 Nystatin 1 applic 06/23/19 07:00 06/25/19 07:20 Mycostatin Ointment - TP Not Given AM [facility] Polyethylene Glycol 17 gm 06/23/19 01:00 06/25/19 10:38 Miralax (For Daily Use) - PO Not Given BID [facility] ASSESSMENT/PLAN: 64 y.o. 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 UTI WBC 12.8 today slight increase from yesterday Dr. Salazar rec switching to ceftazidine urine culture acinetobacter, staph coag neg blood cultures neg x48h renal U/S unremarkable Afebrile, vitals WNL Tibial fracture Per ortho no change in current management lower extremity XR, ankle &foot Xray no acute pathology Pt. stabe for d/c per Ortho, can collow up in 10-14 days as outpatient R lung adenocarcinoma Pt has enlarged nodules on CT spine. CT chest done and reviewed showing multiple nodule Per Heme/ Onc lung biopsy on friday. 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 - New Patient This patient is new to me today: No - Critical Care Critical Care patient: No - Discharge Referral Referred to [facility] Med P.C.: No ATTENDING PHYSICIAN STATEMENT I saw and evaluated the patient. I reviewed the resident's note and discussed the case with the resident. I agree with the resident's findings and plan as documented. SUBJECTIVE: OBJECTIVE: ASSESSMENT AND PLAN:
--- NOTE | 2019-06-25 19:42 | PN ---
Teaching Attending Note Name of Resident: Casimiro Diamond ATTENDING PHYSICIAN STATEMENT I saw and evaluated the patient. I reviewed the resident's note and discussed the case with the resident. I agree with the resident's findings and plan as documented. SUBJECTIVE: No fever or chills. no pain OBJECTIVE: NAD, awake, alert, MMM. Cv: RRR, no MRG Lungs: CTAB Ext: muscle atrophy on RLE. dry skin. no edema.L leg in cast. ASSESSMENT AND PLAN: Unfortunate 64 y/o man with h/o spinal cord injury at level of T4, paraplegia, neurogenic bladder, recurrent UTIs, COPD, chronic pain, splenectomy, adenocarcinoma of R lung, recent Tib/Fib fx and other medical problems who presented from home after bumping his L leg and foot against the wall 1- Leukocytosis, concern for pyelo 2- Recent L Tib/Fib fx. with recurrent trauma 3- Chronic back pain. not changed plan : - Ucx reviewed. Abx switched to Ceftazidime - follow blood cx - cont po morphine - appreciate Onc help. Ct chest reviewed. Ct of Abd/pelvis was nto required per heme - case d/w IR, Bx on Friday - f/u with ortho as out pt
[2019-06-25] MEDS: BACITRACIN 15 GM TUBE TOPICAL OINTMENT TP SCH (21:25)
[2019-06-26] MEDS: CEFTAZIDIME PENTAHYDRATE 1 GM in DEXTROSE 5%-WATER - 50 ML IVPB SCH ×3 (01:03→18:01)
[2019-06-26] MEDS: morphine SULFATE 10 MG/5 ML UNIT-DOSE CUP PO PRN ×3 (01:21→20:09)
[2019-06-26] MEDS: NYSTATIN 100000 UNIT/GM TOPICAL OINTMENT 15 GM TUBE TP SCH (06:17)
[2019-06-26 08:44] LABS: BASO % 0.5 % (0-2.0); EOS % 2.6 % (0-4.5); HEMATOCRIT 38.3 % (35.4-49); HEMOGLOBIN 12.8 GM/dL (11.7-16.9); MCH 31.8 pg (25.7-33.7); MCHC 33.3 g/dl (32.0-35.9); MEAN CELL VOLUME 95.5 fl (80-96); MEAN PLT VOLUME 9.2 fl (7.5-11.1); MONO % 6.4 % (3.8-10.2); NEUT % 79.5 % (42.8-82.8); PLATELET COUNT 644 K/MM3 (134-434); RBC 4.02 M/mm3 (4.00-5.60); RDW 14.4 % (11.9-15.9); WHITE BLOOD COUNT 11.8 K/mm3 (4.0-10.0)
[2019-06-26 08:57] LABS: BLOOD UREA NITROGEN 7.6 mg/dL (7-18); CALCIUM 8.6 mg/dL (8.5-10.1); CREATININE 0.6 mg/dL (0.55-1.3); POTASSIUM 3.7 mmol/L (3.5-5.1)
[2019-06-26] MEDS ORDERED: PT OWN MED DRAWER 7, Y5N ONE ×3 (09:04→16:57)
[2019-06-26] MEDS: LACTOBACILLUS ACIDOPHILUS 1 TABLET PO SCH (09:15)
[2019-06-26] MEDS: metoPROLOL SUCCINATE 25 MG TAB.SR.24H (FP) PO SCH (09:16)
[2019-06-26] MEDS: ENOXAPARIN NA (PORCINE) 40 MG/0.4 ML DISP.SYRIN SQ SCH (09:16)
[2019-06-26] MEDS: POLYETHYLENE GLYCOL 3350 119 GM BTL PO SCH ×2 (09:17→21:39)
--- NOTE | 2019-06-26 10:31 | PN ---
Progress Note, Physician History of Present Illness: stable wbc trending down - Current Medication List Current Medications: Active Medications Bacitracin (Bacitracin -) 1 applic TP HS [facility] Last Admin: 06/25/19 21:25 Dose: Not Given Diazepam (Valium -) 10 mg PO TID [facility] Enoxaparin Sodium (Lovenox -) 40 mg SQ DAILY [facility] Last Admin: 06/26/19 09:16 Dose: Not Given Ceftazidime 1 gm/ Dextrose 50 mls @ 200 mls/hr IVPB Q8H-IV [facility]; Protocol Last Admin: 06/26/19 01:03 Dose: 200 mls/hr Lactobacillus Acidophilus (Bacid -) 1 tab PO DAILY [facility] Last Admin: 06/26/19 09:15 Dose: 1 tab Metoprolol Succinate (Toprol Xl -) 25 mg PO DAILY [facility] Last Admin: 06/26/19 09:16 Dose: Not Given Morphine Sulfate (Morphine 10 Mg/5 Ml Liquid) 20 mg PO Q8H PRN PRN Reason: PAIN LEVEL 7 - 10 Last Admin: 06/26/19 01:21 Dose: 20 mg Nystatin (Mycostatin Ointment -) 1 applic TP AM [facility] Last Admin: 06/26/19 06:17 Dose: 1 applic Polyethylene Glycol (Miralax (For Daily Use) -) 17 gm PO BID [facility] Last Admin: 06/26/19 09:17 Dose: 17 gm - Objective Vital Signs: Vital Signs Temperature 98.3 F 06/26/19 05:00 Pulse Rate 62 06/26/19 05:00 Respiratory Rate 20 06/25/19 21:00 Blood Pressure 111/54 L 06/26/19 05:00 O2 Sat by Pulse Oximetry (%) 96 06/25/19 21:00 Constitutional: Yes: No Distress, Calm Cardiovascular: Yes: S1, S2 Respiratory: Yes: Regular, CTA Bilaterally Gastrointestinal: Yes: Normal Bowel Sounds, Soft Musculoskeletal: Yes: WNL Extremities: Yes: Other Neurological: Yes: Alert, Oriented Psychiatric: Yes: Alert, Oriented Labs: CBC, BMP 06/26/19 08:00 06/26/19 08:00 INR, PTT INR 0.99 (0.83-1.09) 06/25/19 07:50 Assessment/Plan 64-year-old male with a past medical history of COPD, right lung adenocarcinoma (not treated), 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 lung mass uti back pain leukocytosis plan continue abx wbc trending down rest as per the team
[2019-06-26] MEDS: diazePAM 5 MG TABLET PO SCH ×2 (13:35→21:39)
--- NOTE | 2019-06-26 14:31 | PN ---
Physical Exam: SUBJECTIVE: Patient seen and examined. pt offered no complaints this morning no fever or chills. OBJECTIVE: Vital Signs Period Temp Pulse Resp BP Sys/Roche Pulse Ox Last 24 Hr 97.8 F-98.3 F 62-84 16-20 111-120/54-60 96-97 GENERAL: Awake, alert, and fully oriented, in no acute distress. HEAD: Normal with no signs of trauma. EYES: Pupils equal, round and reactive to light, extraocular movements intact, sclera anicteric, conjunctiva clear. No lid lag. EARS, NOSE, THROAT: oropharynx clear without exudates. Moist mucous membranes. LUNGS: Breath sounds equal, clear to auscultation bilaterally. No wheezes, and no crackles. No accessory muscle use. HEART: Regular rate and rhythm, normal S1 and S2 without murmur, rub or gallop. ABDOMEN: Soft, nontender, mildly distended, normoactive bowel sounds, no guarding, no rebound, no masses. No hepatomegaly or splenomegaly. UPPER EXTREMITIES: 2+ pulses, warm, well-perfused. No cyanosis. No clubbing. No peripheral edema. LOWER EXTREMITIES: 2+ pulses, warm, well-perfused. BLE significantly atrophied with splint around left knee and leg, distal pulses present Laboratory Results - last 24 hr 06/26/19 06/26/19 08:00 08:00 WBC 11.8 H RBC 4.02 Hgb 12.8 Hct 38.3 MCV 95.5 MCH 31.8 MCHC 33.3 RDW 14.4 Plt Count 644 H MPV 9.2 Absolute Neuts (auto) 9.4 H Neutrophils % 79.5 Lymphocytes % 11.0 D Monocytes % 6.4 Eosinophils % 2.6 D Basophils % 0.5 Nucleated RBC % 0 Sodium 138 Potassium 3.7 Chloride 102 Carbon Dioxide 25 Anion Gap 10 BUN 7.6 Creatinine 0.6 Est GFR (CKD-EPI)AfAm 121.43 Est GFR (CKD-EPI)NonAf 104.77 Random Glucose 90 Calcium 8.6 Active Medications Generic Name Dose Route Start Last Admin Trade Name Freq PRN Reason Stop Dose Admin Bacitracin 1 applic 06/23/19 22:00 06/25/19 21:25 Bacitracin - TP Not Given HS [facility] Diazepam 10 mg 06/26/19 14:00 06/26/19 13:35 Valium - PO 10 mg TID [facility] Administration Enoxaparin Sodium 40 mg 06/23/19 10:00 06/26/19 09:16 Lovenox - SQ Not Given DAILY [facility] Ceftazidime 1 gm/ Dextrose 50 mls @ 200 mls/hr 06/25/19 18:00 06/26/19 01:03 IVPB 200 mls/hr Q8H-IV [facility] Administration Protocol Lactobacillus Acidophilus 1 tab 06/23/19 10:00 06/26/19 09:15 Bacid - PO 1 tab DAILY [facility] Administration Metoprolol Succinate 25 mg 06/23/19 10:00 06/26/19 09:16 Toprol Xl - PO Not Given DAILY [facility] Morphine Sulfate 20 mg 06/24/19 12:27 06/26/19 11:04 Morphine 10 Mg/5 Ml Liquid PO 20 mg Q8H PRN Administration PAIN LEVEL 7 - 10 Nystatin 1 applic 06/23/19 07:00 06/26/19 06:17 Mycostatin Ointment - TP 1 applic AM [facility] Administration Polyethylene Glycol 17 gm 06/23/19 01:00 06/26/19 09:17 Miralax (For Daily Use) - PO 17 gm BID [facility] Administration ASSESSMENT/PLAN: 64 y.o. 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 UTI WBC 11.8 today slight decrease from yesterday Dr. Salazar switched to ceftazidine urine culture acinetobacter, staph coag neg. isolation in place for acinetobacter blood cultures neg x48h renal U/S unremarkable Afebrile, vitals WNL Tibial fracture Per ortho no change in current management lower extremity XR, ankle &foot Xray no acute pathology Pt. stabe for d/c per Ortho, can collow up in 10-14 days as outpatient R lung adenocarcinoma Pt has enlarged nodules on CT spine. CT chest done and reviewed showing multiple nodule Per Heme/ Onc lung biopsy on friday. 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 - New Patient This patient is new to me today: No - Critical Care Critical Care patient: No - Discharge Referral Referred to [facility] Med P.C.: No ATTENDING PHYSICIAN STATEMENT I saw and evaluated the patient. I reviewed the resident's note and discussed the case with the resident. I agree with the resident's findings and plan as documented. SUBJECTIVE: OBJECTIVE: ASSESSMENT AND PLAN:
--- NOTE | 2019-06-26 16:57 | PN ---
Teaching Attending Note Name of Resident: Jeanne Marie ATTENDING PHYSICIAN STATEMENT I saw and evaluated the patient. I reviewed the resident's note and discussed the case with the resident. I agree with the resident's findings and plan as documented. SUBJECTIVE: no fever or chills. pain is controlled . had BM yesterday OBJECTIVE: NAD, awake, alert, MMM. Cv: RRR, no MRG Lungs: CTAB Ext: muscle atrophy on RLE. dry skin. no edema.L leg in cast. ASSESSMENT AND PLAN: Unfortunate 64 y/o man with h/o spinal cord injury at level of T4, paraplegia, neurogenic bladder, recurrent UTIs, COPD, chronic pain, splenectomy, adenocarcinoma of R lung, recent Tib/Fib fx and other medical problems who presented from home after bumping his L leg and foot against the wall 1- Leukocytosis, concern for pyelo 2- Recent L Tib/Fib fx. with recurrent trauma 3- Chronic back pain. not changed plan : - WBC improved . Cont Ceftazidime - follow blood cx. Neg x 72 hr - cont po morphine - Bx of lung mass on Friday - f/u with ortho as out pt
[2019-06-26] MEDS: BACITRACIN 15 GM TUBE TOPICAL OINTMENT TP SCH (21:39)
[2019-06-27] MEDS: CEFTAZIDIME PENTAHYDRATE 1 GM in DEXTROSE 5%-WATER - 50 ML IVPB SCH ×3 (02:58→17:16)
[2019-06-27] MEDS: morphine SULFATE 10 MG/5 ML UNIT-DOSE CUP PO PRN ×3 (03:58→23:56)
[2019-06-27] MEDS: NYSTATIN 100000 UNIT/GM TOPICAL OINTMENT 15 GM TUBE TP SCH (06:02)
[2019-06-27] MEDS: diazePAM 5 MG TABLET PO SCH ×3 (06:03→22:35)
[2019-06-27 07:37] LABS: BASO % 0.3 % (0-2.0); EOS % 2.5 % (0-4.5); HEMOGLOBIN 12.2 GM/dL (11.7-16.9); LYMPH % 10.9 % (8-40); MCH 31.8 pg (25.7-33.7); MCHC 33.8 g/dl (32.0-35.9); MEAN CELL VOLUME 93.9 fl (80-96); MEAN PLT VOLUME 9.4 fl (7.5-11.1); MONO % 6.6 % (3.8-10.2); NEUT % 79.7 % (42.8-82.8); PLATELET COUNT 715 K/MM3 (134-434); RBC 3.83 M/mm3 (4.00-5.60); RDW 14.4 % (11.9-15.9); WHITE BLOOD COUNT 12.6 K/mm3 (4.0-10.0)
[2019-06-27 07:51] LABS: BLOOD UREA NITROGEN 9.1 mg/dL (7-18); CALCIUM 8.2 mg/dL (8.5-10.1); CREATININE 0.5 mg/dL (0.55-1.3); POTASSIUM 3.9 mmol/L (3.5-5.1)
[2019-06-27] MEDS ORDERED: PT OWN MED DRAWER 7, Y5N ONE ×3 (09:46→21:43)
[2019-06-27] MEDS: ENOXAPARIN NA (PORCINE) 40 MG/0.4 ML DISP.SYRIN SQ SCH (09:47)
[2019-06-27] MEDS: metoPROLOL SUCCINATE 25 MG TAB.SR.24H (FP) PO SCH (09:47)
[2019-06-27] MEDS: LACTOBACILLUS ACIDOPHILUS 1 TABLET PO SCH (09:49)
[2019-06-27] MEDS: POLYETHYLENE GLYCOL 3350 119 GM BTL PO SCH ×2 (09:49→22:36)
--- NOTE | 2019-06-27 10:42 | PN ---
Progress Note, Physician History of Present Illness: no new issues - Current Medication List Current Medications: Active Medications Bacitracin (Bacitracin -) 1 applic TP HS [facility] Last Admin: 06/26/19 21:39 Dose: Not Given Diazepam (Valium -) 10 mg PO TID [facility] Last Admin: 06/27/19 06:03 Dose: 10 mg Enoxaparin Sodium (Lovenox -) 40 mg SQ DAILY [facility] Last Admin: 06/27/19 09:47 Dose: Not Given Ceftazidime 1 gm/ Dextrose 50 mls @ 200 mls/hr IVPB Q8H-IV [facility]; Protocol Last Admin: 06/27/19 09:50 Dose: 200 mls/hr Lactobacillus Acidophilus (Bacid -) 1 tab PO DAILY [facility] Last Admin: 06/27/19 09:49 Dose: 1 tab Metoprolol Succinate (Toprol Xl -) 25 mg PO DAILY [facility] Last Admin: 06/27/19 09:47 Dose: Not Given Morphine Sulfate (Morphine 10 Mg/5 Ml Liquid) 20 mg PO Q8H PRN PRN Reason: PAIN LEVEL 7 - 10 Last Admin: 06/27/19 03:58 Dose: 20 mg Nystatin (Mycostatin Ointment -) 1 applic TP AM [facility] Last Admin: 06/27/19 06:02 Dose: 1 applic Polyethylene Glycol (Miralax (For Daily Use) -) 17 gm PO BID [facility] Last Admin: 06/27/19 09:49 Dose: 17 gm - Objective Vital Signs: Vital Signs Temperature 97.4 F L 06/27/19 07:41 Pulse Rate 81 06/27/19 07:41 Respiratory Rate 15 06/27/19 07:41 Blood Pressure 114/70 06/27/19 07:41 O2 Sat by Pulse Oximetry (%) 98 06/26/19 21:00 Constitutional: Yes: No Distress, Calm Cardiovascular: Yes: S1, S2 Respiratory: Yes: Regular, CTA Bilaterally Gastrointestinal: Yes: Normal Bowel Sounds, Soft Musculoskeletal: Yes: WNL Extremities: Yes: WNL Neurological: Yes: Alert, Oriented Psychiatric: Yes: Alert, Oriented Labs: CBC, BMP 06/27/19 06:35 06/27/19 06:35 INR, PTT INR 0.99 (0.83-1.09) 06/25/19 07:50 Assessment/Plan 64-year-old male with a past medical history of COPD, right lung adenocarcinoma (not treated), 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 lung mass uti back pain leukocytosis plan continue abx wbc trending down rest as per the team
--- NOTE | 2019-06-27 17:10 | PN ---
Progress Note (short form) - Note Progress Note: Subjective: no fever or chills. back pain is tolerable Objective: Vital Signs: Last Vital Signs Temp Pulse Resp BP Pulse Ox 98.4 F 67 18 112/57 L 98 06/27/19 15:03 06/27/19 15:03 06/27/19 15:03 06/27/19 15:03 06/27/19 09:00 Laboratory Results - last 24 hr 06/27/19 06/27/19 06:35 06:35 WBC 12.6 H RBC 3.83 L Hgb 12.2 Hct 36.0 MCV 93.9 MCH 31.8 MCHC 33.8 RDW 14.4 Plt Count 715 H MPV 9.4 Absolute Neuts (auto) 10.0 H Neutrophils % 79.7 Lymphocytes % 10.9 Monocytes % 6.6 Eosinophils % 2.5 Basophils % 0.3 Nucleated RBC % 0 Sodium 138 Potassium 3.9 Chloride 101 Carbon Dioxide 28 Anion Gap 8 BUN 9.1 Creatinine 0.5 L Est GFR (CKD-EPI)AfAm 130.88 Est GFR (CKD-EPI)NonAf 112.92 Random Glucose 103 Calcium 8.2 L Physical Exam: NAD, awake, alert, MMM. Cv: RRR, no MRG Lungs: CTAB Ext: muscle atrophy on RLE. dry skin. no edema.L leg in cast. ASSESSMENT AND PLAN: Unfortunate 64 y/o man with h/o spinal cord injury at level of T4, paraplegia, neurogenic bladder, recurrent UTIs, COPD, chronic pain, splenectomy, adenocarcinoma of R lung, recent Tib/Fib fx and other medical problems who presented from home after bumping his L leg and foot against the wall 1- Leukocytosis, concern for pyelo. improved 2- Recent L Tib/Fib fx. 3- Chronic back pain. not changed plan : - WBC improved . Cont Ceftazidime - follow blood cx. Neg x 96 hr - cont po morphine - Bx of lung mass on Friday - hold DVT px ./ - MPO after MN - f/u with ortho as out pt Visit type - Emergency Visit Emergency Visit: Yes ED Registration Date: 06/22/19 Care time: The patient presented to the Emergency Department on the above date and was hospitalized for further evaluation of their emergent condition. - New Patient This patient is new to me today: No - Critical Care Critical Care patient: No
[2019-06-27] MEDS: BACITRACIN 15 GM TUBE TOPICAL OINTMENT TP SCH (22:35)
[2019-06-28] MEDS: CEFTAZIDIME PENTAHYDRATE 1 GM in DEXTROSE 5%-WATER - 50 ML IVPB SCH ×4 (02:40→18:05)
[2019-06-28] MEDS: diazePAM 5 MG TABLET PO SCH ×3 (06:35→22:08)
[2019-06-28] MEDS: NYSTATIN 100000 UNIT/GM TOPICAL OINTMENT 15 GM TUBE TP SCH (06:36)
[2019-06-28 08:57] LABS: BASO % 1.3 % (0-2.0); EOS % 4.1 % (0-4.5); HEMATOCRIT 34.1 % (35.4-49); HEMOGLOBIN 11.6 GM/dL (11.7-16.9); LYMPH % 14.7 % (8-40); MCH 31.7 pg (25.7-33.7); MCHC 33.9 g/dl (32.0-35.9); MEAN CELL VOLUME 93.5 fl (80-96); MEAN PLT VOLUME 9.1 fl (7.5-11.1); MONO % 7.7 % (3.8-10.2); NEUT % 72.2 % (42.8-82.8); PLATELET COUNT 665 K/MM3 (134-434); RBC 3.65 M/mm3 (4.00-5.60); RDW 14.3 % (11.9-15.9)
[2019-06-28] MEDS ORDERED: PT OWN MED DRAWER 7, Y5N ONE ×2 (09:09→16:54)
[2019-06-28] MEDS: morphine SULFATE 10 MG/5 ML UNIT-DOSE CUP PO PRN ×2 (09:21→18:06)
[2019-06-28] MEDS: metoPROLOL SUCCINATE 25 MG TAB.SR.24H (FP) PO SCH (09:23)
[2019-06-28] MEDS: LACTOBACILLUS ACIDOPHILUS 1 TABLET PO SCH (09:23)
[2019-06-28] MEDS: POLYETHYLENE GLYCOL 3350 119 GM BTL PO SCH ×2 (09:24→22:07)
--- NOTE | 2019-06-28 10:00 | PN ---
Progress Note, Physician History of Present Illness: no new issues - Current Medication List Current Medications: Active Medications Bacitracin (Bacitracin -) 1 applic TP HS [facility] Last Admin: 06/27/19 22:35 Dose: Not Given Diazepam (Valium -) 10 mg PO TID [facility] Last Admin: 06/28/19 06:35 Dose: 10 mg Enoxaparin Sodium (Lovenox -) 40 mg SQ DAILY [facility] Last Admin: 06/27/19 09:47 Dose: Not Given Ceftazidime 1 gm/ Dextrose 50 mls @ 200 mls/hr IVPB Q8H-IV [facility]; Protocol Last Admin: 06/28/19 09:23 Dose: 200 mls/hr Lactobacillus Acidophilus (Bacid -) 1 tab PO DAILY [facility] Last Admin: 06/28/19 09:23 Dose: Not Given Metoprolol Succinate (Toprol Xl -) 25 mg PO DAILY [facility] Last Admin: 06/28/19 09:23 Dose: Not Given Morphine Sulfate (Morphine 10 Mg/5 Ml Liquid) 20 mg PO Q8H PRN PRN Reason: PAIN LEVEL 7 - 10 Last Admin: 06/28/19 09:21 Dose: 20 mg Nystatin (Mycostatin Ointment -) 1 applic TP AM [facility] Last Admin: 06/28/19 06:36 Dose: 1 applic Polyethylene Glycol (Miralax (For Daily Use) -) 17 gm PO BID [facility] Last Admin: 06/28/19 09:24 Dose: Not Given - Objective Vital Signs: Vital Signs Temperature 97.6 F 06/28/19 05:47 Pulse Rate 80 06/28/19 05:47 Respiratory Rate 18 06/28/19 05:47 Blood Pressure 116/62 06/28/19 05:47 O2 Sat by Pulse Oximetry (%) 98 06/27/19 09:00 Constitutional: Yes: No Distress, Calm Cardiovascular: Yes: S1, S2 Respiratory: Yes: Regular, CTA Bilaterally Gastrointestinal: Yes: Normal Bowel Sounds, Soft Musculoskeletal: Yes: WNL Extremities: Yes: Other Neurological: Yes: Alert, Oriented Psychiatric: Yes: Alert, Oriented Labs: CBC, BMP 06/28/19 07:40 06/27/19 06:35 INR, PTT INR 0.99 (0.83-1.09) 06/25/19 07:50 Assessment/Plan 64-year-old male with a past medical history of COPD, right lung adenocarcinoma (not treated), 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 lung mass uti back pain leukocytosis plan continue abx wbc trending down rest as per the team
--- NOTE | 2019-06-28 17:31 | PN ---
Teaching Attending Note Name of Resident: Mima Anders ATTENDING PHYSICIAN STATEMENT I saw and evaluated the patient. I reviewed the resident's note and discussed the case with the resident. I agree with the resident's findings and plan as documented. SUBJECTIVE: No fever or chills. No KIRAN. No abd pain. has chronci back pain which has not changed OBJECTIVE: NAD, awake, alert, MMM. Cv: RRR, no MRG Lungs: CTAB Ext: muscle atrophy on RLE. dry skin. no edema.L leg in cast. ASSESSMENT AND PLAN: Unfortunate 64 y/o man with h/o spinal cord injury at level of T4, paraplegia, neurogenic bladder, recurrent UTIs, COPD, chronic pain, splenectomy, adenocarcinoma of R lung, recent Tib/Fib fx and other medical problems who presented from home after bumping his L leg and foot against the wall 1- Leukocytosis, concern for pyelo. improved 2- Recent L Tib/Fib fx. 3- Chronic back pain. not changed plan : - will cont ceftazidim for a total of 10 days ( today day 4) - lung bx was not done today . - PICC line placement for Abx - cont po morphine -NPO after MN. - f/u with ortho as out pt Dispo : [facility]. Pt prefers to get his Abx in Rehab .
--- NOTE | 2019-06-28 19:19 | PN ---
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 Pt reports no complaints or overnight events. Pt reports he has been able to move bowel and urinate adequately. Admits to chronic back pain and chronic suprapubic pain. Denies f/c/n/v, diarrhea, abdominal pain. OBJECTIVE: Vital Signs Period Temp Pulse Resp BP Sys/Roche Pulse Ox Last 24 Hr 97.6 F-98.7 F 80-86 18 116-127/62-65 GENERAL: The patient is awake, alert, and fully oriented, NAD EYES: PERRL, extraocular movements intact, conjunctiva clear. No ptosis. ENT: oropharynx clear without exudates, moist mucous membranes. NECK: supple, No LAD or carotid bruit LUNGS: Breath sounds equal, clear to auscultation bilaterally, no wheezes, no crackles HEART: Regular rate and rhythm, S1, S2 without murmur, rub or gallop. ABDOMEN: Soft, nontender, nondistended, normoactive bowel sounds, no guarding, no rebound EXTREMITIES: 2+ pulses, warm, well-perfused, no edema. LE- paraplegic related disability- pulses intact. Left leg dressed and immobilized due to Tib-Fib fracture. NEUROLOGICAL: Cranial nerves II through XII grossly intact. UE strength 5/5 and sensation 5/5 SKIN: Warm, dry, normal turgor, no rashes or lesions noted Laboratory Results - last 24 hr CBC,CMP WBC 11.0 K/mm3 (4.0-10.0) H 06/28/19 07:40 RBC 3.65 M/mm3 (4.00-5.60) L 06/28/19 07:40 Hgb 11.6 GM/dL (11.7-16.9) L 06/28/19 07:40 Hct 34.1 % (35.4-49) L 06/28/19 07:40 MCV 93.5 fl (80-96) 06/28/19 07:40 MCH 31.7 pg (25.7-33.7) 06/28/19 07:40 MCHC 33.9 g/dl (32.0-35.9) 06/28/19 07:40 RDW 14.3 % (11.9-15.9) 06/28/19 07:40 Plt Count 665 K/MM3 (134-434) H 06/28/19 07:40 MPV 9.1 fl (7.5-11.1) 06/28/19 07:40 Absolute Neuts (auto) 8.0 K/mm3 (1.5-8.0) 06/28/19 07:40 Neutrophils % 72.2 % (42.8-82.8) 06/28/19 07:40 Neutrophils % (Manual) 86.4 % (42.8-82.8) H 06/24/19 12:05 Band Neutrophils % 0.0 % 06/24/19 12:05 Lymphocytes % 14.7 % (8-40) D 06/28/19 07:40 Lymphocytes % (Manual) 3.9 % (8-40) L D 06/24/19 12:05 Monocytes % 7.7 % (3.8-10.2) 06/28/19 07:40 Monocytes % (Manual) 6 % (3.8-10.2) 06/24/19 12:05 Eosinophils % 4.1 % (0-4.5) 06/28/19 07:40 Eosinophils % (Manual) 0.0 % (0-4.5) D 06/24/19 12:05 Basophils % 1.3 % (0-2.0) D 06/28/19 07:40 Basophils % (Manual) 1.0 % (0-2.0) D 06/24/19 12:05 Myelocytes % (Man) 0 % (0-2) 06/24/19 12:05 Promyelocytes % (Man) 0 % (0-2) 06/24/19 12:05 Blast Cells % (Manual) 0 % (0-0) 06/24/19 12:05 Nucleated RBC % 0 % (0-0) 06/28/19 07:40 Metamyelocytes 0 % (0-2) D 06/24/19 12:05 Hypochromia 0 06/24/19 12:05 Platelet Estimate Increased 06/24/19 12:05 Polychromasia 0 06/24/19 12:05 Poikilocytosis 0 06/24/19 12:05 Anisocytosis 0 06/24/19 12:05 Microcytosis 0 06/24/19 12:05 Macrocytosis 0 06/24/19 12:05 Sodium 138 mmol/L (136-145) 06/27/19 06:35 Potassium 3.9 mmol/L (3.5-5.1) 06/27/19 06:35 Chloride 101 mmol/L (98-107) 06/27/19 06:35 Carbon Dioxide 28 mmol/L (21-32) 06/27/19 06:35 Anion Gap 8 MMOL/L (8-16) 06/27/19 06:35 BUN 9.1 mg/dL (7-18) 06/27/19 06:35 Creatinine 0.5 mg/dL (0.55-1.3) L 06/27/19 06:35 Est GFR (CKD-EPI)AfAm 130.88 06/27/19 06:35 Est GFR (CKD-EPI)NonAf 112.92 06/27/19 06:35 Random Glucose 103 mg/dL (74-106) 06/27/19 06:35 Calcium 8.2 mg/dL (8.5-10.1) L 06/27/19 06:35 Phosphorus 3.2 mg/dL (2.5-4.9) 06/25/19 12:26 Magnesium 2.1 mg/dL (1.8-2.4) 06/25/19 12:26 Total Bilirubin 0.8 mg/dL (0.2-1) 06/23/19 07:30 AST 13 U/L (15-37) L 06/23/19 07:30 ALT 15 U/L (13-61) 06/23/19 07:30 Alkaline Phosphatase 125 U/L (45-117) H 06/23/19 07:30 Creatine Kinase Cancelled 06/22/19 15:10 Troponin I Cancelled 06/22/19 15:10 Total Protein 6.6 g/dl (6.4-8.2) 06/23/19 07:30 Albumin 2.6 g/dl (3.4-5.0) L 06/23/19 07:30 Lipase 375 U/L (73-393) 06/22/19 17:00 Active Medications Generic Name Dose Route Start Last Admin Trade Name Freq PRN Reason Stop Dose Admin Bacitracin 1 applic 06/23/19 22:00 06/27/19 22:35 Bacitracin - TP Not Given HS [facility] Diazepam 10 mg 06/26/19 14:00 06/28/19 14:10 Valium - PO 10 mg TID [facility] Administration Enoxaparin Sodium 40 mg 06/23/19 10:00 06/27/19 09:47 Lovenox - SQ Not Given DAILY [facility] Ceftazidime 1 gm/ Dextrose 50 mls @ 200 mls/hr 06/25/19 18:00 06/28/19 18:05 IVPB 200 mls/hr Q8H-IV [facility] Administration Protocol Lactobacillus Acidophilus 1 tab 06/23/19 10:00 06/28/19 09:23 Bacid - PO Not Given DAILY [facility] Metoprolol Succinate 25 mg 06/23/19 10:00 06/28/19 09:23 Toprol Xl - PO Not Given DAILY [facility] Morphine Sulfate 20 mg 06/24/19 12:27 06/28/19 18:06 Morphine 10 Mg/5 Ml Liquid PO 20 mg Q8H PRN Administration PAIN LEVEL 7 - 10 Nystatin 1 applic 06/23/19 07:00 06/28/19 06:36 Mycostatin Ointment - TP 1 applic AM [facility] Administration Polyethylene Glycol 17 gm 06/23/19 01:00 06/28/19 09:24 Miralax (For Daily Use) - PO Not Given BID [facility] ASSESSMENT/PLAN: 64 y/o M w/ PMH of adenocarcinoma of right lung, 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 #Sepsis 2/2 UTI now resolved UCx: Acintobacter continue Abx- ceftazidime IV negative for Pyelo on imaging f/u BCx, so far negative ID recommended one more day of treatment Pt will go for PICC placement by IR tomorrow Will f/u w/ machine adjuster leader case trim for half-way placement- preferred by the hospitalist team Pt prefers to get his abx at rehab #Adenocarcinoma of the right lung Pt will go for Lung bx tomorrow- for the purpose of directing treatment CXR ordered #Tib/Fib fracture f/u outpt #Chronic back pain Pain management- PO morphine #DVT ppx SCDs b/l #FEN NPO after Midnight regular diet till midnight Dispo: continue Abx, monitor White count, f/u w/ IR for picc placement and Lung bx Visit type - Emergency Visit Emergency Visit: Yes ED Registration Date: 06/22/19 Care time: The patient presented to the Emergency Department on the above date and was hospitalized for further evaluation of their emergent condition. - New Patient This patient is new to me today: Yes Date on this admission: 06/29/19 - Critical Care Critical Care patient: No - Discharge Referral Referred to [facility] Med P.C.: No ATTENDING PHYSICIAN STATEMENT I saw and evaluated the patient. I reviewed the resident's note and discussed the case with the resident. I agree with the resident's findings and plan as documented. SUBJECTIVE: OBJECTIVE: ASSESSMENT AND PLAN:
[2019-06-28] MEDS: BACITRACIN 15 GM TUBE TOPICAL OINTMENT TP SCH (22:07)
[2019-06-29] MEDS ORDERED: PT OWN MED DRAWER 7, Y5N ONE ×3 (01:59→17:37)
[2019-06-29] MEDS: morphine SULFATE 10 MG/5 ML UNIT-DOSE CUP PO PRN ×2 (02:02→09:10)
[2019-06-29] MEDS: CEFTAZIDIME PENTAHYDRATE 1 GM in DEXTROSE 5%-WATER - 50 ML IVPB SCH ×3 (02:02→17:55)
[2019-06-29] MEDS: NYSTATIN 100000 UNIT/GM TOPICAL OINTMENT 15 GM TUBE TP SCH (06:09)
[2019-06-29] MEDS: diazePAM 5 MG TABLET PO SCH ×3 (06:10→22:01)
[2019-06-29 08:57] LABS: BASO % 1.2 % (0-2.0); EOS % 4.7 % (0-4.5); HEMATOCRIT 37.4 % (35.4-49); HEMOGLOBIN 12.3 GM/dL (11.7-16.9); LYMPH % 13.3 % (8-40); MCH 31.1 pg (25.7-33.7); MCHC 32.8 g/dl (32.0-35.9); MEAN CELL VOLUME 94.8 fl (80-96); MEAN PLT VOLUME 9.6 fl (7.5-11.1); MONO % 9.5 % (3.8-10.2); NEUT % 71.3 % (42.8-82.8); PLATELET COUNT 720 K/MM3 (134-434); RBC 3.94 M/mm3 (4.00-5.60); RDW 14.5 % (11.9-15.9); WHITE BLOOD COUNT 11.6 K/mm3 (4.0-10.0)
[2019-06-29] MEDS: LACTOBACILLUS ACIDOPHILUS 1 TABLET PO SCH (09:10)
[2019-06-29] MEDS: metoPROLOL SUCCINATE 25 MG TAB.SR.24H (FP) PO SCH (09:10)
[2019-06-29] MEDS: POLYETHYLENE GLYCOL 3350 119 GM BTL PO SCH ×2 (09:14→22:04)
[2019-06-29 09:28] LABS: ALBUMIN 2.4 g/dl (3.4-5.0); BILIRUBIN,TOTAL 0.3 mg/dL (0.2-1); BLOOD UREA NITROGEN 10.7 mg/dL (7-18); CALCIUM 9.1 mg/dL (8.5-10.1); CREATININE 0.5 mg/dL (0.55-1.3); POTASSIUM 4.4 mmol/L (3.5-5.1); TOT PROT 6.4 g/dl (6.4-8.2)
--- NOTE | 2019-06-29 12:19 | PN ---
Progress Note, Physician History of Present Illness: no new issues - Current Medication List Current Medications: Active Medications Bacitracin (Bacitracin -) 1 applic TP HS [facility] Last Admin: 06/28/19 22:07 Dose: Not Given Diazepam (Valium -) 10 mg PO TID [facility] Last Admin: 06/29/19 06:10 Dose: 10 mg Enoxaparin Sodium (Lovenox -) 40 mg SQ DAILY [facility] Last Admin: 06/27/19 09:47 Dose: Not Given Ceftazidime 1 gm/ Dextrose 50 mls @ 200 mls/hr IVPB Q8H-IV [facility]; Protocol Last Admin: 06/29/19 09:10 Dose: 200 mls/hr Lactobacillus Acidophilus (Bacid -) 1 tab PO DAILY [facility] Last Admin: 06/29/19 09:10 Dose: 1 tab Metoprolol Succinate (Toprol Xl -) 25 mg PO DAILY [facility] Last Admin: 06/29/19 09:10 Dose: 25 mg Nystatin (Mycostatin Ointment -) 1 applic TP AM [facility] Last Admin: 06/29/19 06:09 Dose: 1 applic Polyethylene Glycol (Miralax (For Daily Use) -) 17 gm PO BID [facility] Last Admin: 06/29/19 09:14 Dose: 17 gm - Objective Vital Signs: Vital Signs Temperature 98.2 F 06/29/19 06:00 Pulse Rate 74 06/29/19 06:00 Respiratory Rate 12 06/29/19 06:00 Blood Pressure 137/65 06/29/19 06:00 O2 Sat by Pulse Oximetry (%) 98 06/28/19 21:00 Constitutional: Yes: No Distress, Calm Cardiovascular: Yes: S1, S2 Respiratory: Yes: Regular, CTA Bilaterally Gastrointestinal: Yes: Normal Bowel Sounds, Soft Musculoskeletal: Yes: WNL Extremities: Yes: Other Neurological: Yes: Alert, Oriented Psychiatric: Yes: Alert, Oriented Labs: CBC, BMP 06/29/19 07:29 06/29/19 07:29 INR, PTT INR 0.99 (0.83-1.09) 06/25/19 07:50 Assessment/Plan 64-year-old male with a past medical history of COPD, right lung adenocarcinoma (not treated), 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 lung mass uti back pain leukocytosis plan continue abx wbc trending down rest as per the team
--- NOTE | 2019-06-29 16:49 | PN ---
Teaching Attending Note Name of Resident: Jose Antonio Khan ATTENDING PHYSICIAN STATEMENT I saw and evaluated the patient. I reviewed the resident's note and discussed the case with the resident. I agree with the resident's findings and plan as documented. SUBJECTIVE: No fever or chills. cont to have back pain . complains of No BM OBJECTIVE: NAD, awake, alert, MMM. Cv: RRR, no MRG Lungs: CTAB Ext: muscle atrophy on RLE. dry skin. no edema.L leg in cast. ASSESSMENT AND PLAN: Unfortunate 64 y/o man with h/o spinal cord injury at level of T4, paraplegia, neurogenic bladder, recurrent UTIs, COPD, chronic pain, splenectomy, adenocarcinoma of R lung, recent Tib/Fib fx and other medical problems who presented from home after bumping his L leg and foot against the wall 1- Leukocytosis, concern for pyelo. improved 2- Recent L Tib/Fib fx. 3- Chronic back pain. not changed plan : - will cont ceftazidim for a total of 10 days ( today day 4) - lung bx done today ( for more genetic testing on the sample, to decide on chemotherapy) - cxray reviewed, no pkneumothorax seen. will follow final report - PICC line placement for IV Abx - cont po morphine - f/u with ortho as out pt Dispo : if no complications , can leave to rehab tomorrow
--- NOTE | 2019-06-29 19:31 | PN ---
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 Pt reports no complaints or overnight events. Pt reports inability to pass adequate stool and would like a enema. Pt reports he has been able to urinate adequately. Admits to chronic back pain and chronic suprapubic pain. Denies f/c/n/v, diarrhea, urinary symptoms, chest pain, sob, headaches. OBJECTIVE: Vital Signs Period Temp Pulse Resp BP Sys/Roche Pulse Ox Last 24 Hr 97 F-98.6 F 64-104 11-27 78-141/33-98 98-100 GENERAL: The patient is awake, alert, and fully oriented, in no acute distress. EYES: PERRL, extraocular movements intact, NECK: supple. LUNGS: Breath sounds equal, clear to auscultation bilaterally, no wheezes, no crackles, HEART: Regular rate and rhythm, S1, S2 without murmur, rub or gallop. ABDOMEN: Soft, nontender, nondistended, normoactive bowel sounds, no guarding, no rebound. EXTREMITIES: 2+ pulses, paraplegic below the waist. NEUROLOGICAL: Normal speech. Paraplegia SKIN: Warm Laboratory Results - last 24 hr 06/29/19 06/29/19 07:29 07:29 WBC 11.6 H RBC 3.94 L Hgb 12.3 Hct 37.4 MCV 94.8 MCH 31.1 MCHC 32.8 RDW 14.5 Plt Count 720 H MPV 9.6 Absolute Neuts (auto) 8.3 H Neutrophils % 71.3 Lymphocytes % 13.3 Monocytes % 9.5 Eosinophils % 4.7 H Basophils % 1.2 Nucleated RBC % 0 Sodium 137 Potassium 4.4 Chloride 100 Carbon Dioxide 28 Anion Gap 9 BUN 10.7 Creatinine 0.5 L Est GFR (CKD-EPI)AfAm 130.88 Est GFR (CKD-EPI)NonAf 112.92 Random Glucose 83 Calcium 9.1 Total Bilirubin 0.3 AST 15 ALT 15 Alkaline Phosphatase 111 Total Protein 6.4 Albumin 2.4 L Active Medications Generic Name Dose Route Start Last Admin Trade Name Freq PRN Reason Stop Dose Admin Bacitracin 1 applic 06/23/19 22:00 06/28/19 22:07 Bacitracin - TP Not Given HS [facility] Diazepam 10 mg 06/26/19 14:00 06/29/19 15:12 Valium - PO 10 mg TID [facility] Administration Enoxaparin Sodium 40 mg 06/23/19 10:00 06/27/19 09:47 Lovenox - SQ Not Given DAILY [facility] Ceftazidime 1 gm/ Dextrose 50 mls @ 200 mls/hr 06/25/19 18:00 06/29/19 17:55 IVPB 200 mls/hr Q8H-IV [facility] Administration Protocol Lactobacillus Acidophilus 1 tab 06/23/19 10:00 06/29/19 09:10 Bacid - PO 1 tab DAILY [facility] Administration Metoprolol Succinate 25 mg 06/23/19 10:00 06/29/19 09:10 Toprol Xl - PO 25 mg DAILY [facility] Administration Nystatin 1 applic 06/23/19 07:00 06/29/19 06:09 Mycostatin Ointment - TP 1 applic AM [facility] Administration Polyethylene Glycol 17 gm 06/23/19 01:00 06/29/19 09:14 Miralax (For Daily Use) - PO 17 gm BID [facility] Administration ASSESSMENT/PLAN: 64 y/o M w/ PMH of adenocarcinoma of right lung, 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 #Sepsis 2/2 UTI now resolved- white count normal UCx: Acintobacter continue Abx- ceftazidime IV- 5 more days after discharge Pt will go for PICC placement before discharge tomorrow in the am Spoke to Ana-manager of case management/elementary school social worker for [facility] placement- preferred by the hospitalist team Pt prefers to get his abx at rehab #Adenocarcinoma of the right lung Lung bx done today by IR- pending results #Tib/Fib fracture f/u outpt #Chronic back pain Pain management- PO morphine #DVT ppx SCDs b/l #FEN regular diet Dispo: continue Abx, f/u lung bc results, f/u picc placement before discharge tomorrow Visit type - Emergency Visit Emergency Visit: Yes ED Registration Date: 06/22/19 Care time: The patient presented to the Emergency Department on the above date and was hospitalized for further evaluation of their emergent condition. - New Patient This patient is new to me today: Yes Date on this admission: 07/03/19 - Critical Care Critical Care patient: No - Discharge Referral Referred to [facility] Med P.C.: No ATTENDING PHYSICIAN STATEMENT I saw and evaluated the patient. I reviewed the resident's note and discussed the case with the resident. I agree with the resident's findings and plan as documented. SUBJECTIVE: OBJECTIVE: ASSESSMENT AND PLAN:
[2019-06-29] MEDS ORDERED: morphine SULFATE 10 MG/5 ML UNIT-DOSE CUP PO ONE (22:00)
[2019-06-29] MEDS: BACITRACIN 15 GM TUBE TOPICAL OINTMENT TP SCH (22:02)
[2019-06-30] MEDS: CEFTAZIDIME PENTAHYDRATE 1 GM in DEXTROSE 5%-WATER - 50 ML IVPB SCH ×3 (01:51→18:05)
[2019-06-30] MEDS: diazePAM 5 MG TABLET PO SCH ×3 (06:04→21:21)
[2019-06-30] MEDS: NYSTATIN 100000 UNIT/GM TOPICAL OINTMENT 15 GM TUBE TP SCH (06:05)
[2019-06-30 09:11] LABS: BASO % 0.2 % (0-2.0); EOS % 6.4 % (0-4.5); HEMATOCRIT 37.8 % (35.4-49); HEMOGLOBIN 12.6 GM/dL (11.7-16.9); LYMPH % 11.1 % (8-40); MCH 31.5 pg (25.7-33.7); MCHC 33.5 g/dl (32.0-35.9); MEAN CELL VOLUME 94.1 fl (80-96); MONO % 7.7 % (3.8-10.2); NEUT % 74.6 % (42.8-82.8); PLATELET COUNT 743 K/MM3 (134-434); RBC 4.02 M/mm3 (4.00-5.60); RDW 14.7 % (11.9-15.9); WHITE BLOOD COUNT 11.3 K/mm3 (4.0-10.0)
[2019-06-30 10:28] LABS: ALBUMIN 2.4 g/dl (3.4-5.0); BILIRUBIN,TOTAL 0.4 mg/dL (0.2-1); BLOOD UREA NITROGEN 8.7 mg/dL (7-18); CALCIUM 9.1 mg/dL (8.5-10.1); CREATININE 0.6 mg/dL (0.55-1.3); POTASSIUM 3.8 mmol/L (3.5-5.1); TOT PROT 6.4 g/dl (6.4-8.2)
[2019-06-30] MEDS ORDERED: PT OWN MED DRAWER 7, Y5N ONE ×2 (11:37→18:03)
[2019-06-30] MEDS: POLYETHYLENE GLYCOL 3350 119 GM BTL PO SCH ×2 (11:48→21:21)
[2019-06-30] MEDS: LACTOBACILLUS ACIDOPHILUS 1 TABLET PO SCH (11:48)
[2019-06-30] MEDS: metoPROLOL SUCCINATE 25 MG TAB.SR.24H (FP) PO SCH (11:48)
--- NOTE | 2019-06-30 11:50 | PN ---
Progress Note, Physician History of Present Illness: no new issues - Current Medication List Current Medications: Active Medications Bacitracin (Bacitracin -) 1 applic TP HS [facility] Last Admin: 06/29/19 22:02 Dose: Not Given Diazepam (Valium -) 10 mg PO TID [facility] Last Admin: 06/30/19 06:04 Dose: 10 mg Enoxaparin Sodium (Lovenox -) 40 mg SQ DAILY [facility] Last Admin: 06/27/19 09:47 Dose: Not Given Ceftazidime 1 gm/ Dextrose 50 mls @ 200 mls/hr IVPB Q8H-IV [facility]; Protocol Last Admin: 06/30/19 11:48 Dose: 200 mls/hr Lactobacillus Acidophilus (Bacid -) 1 tab PO DAILY [facility] Last Admin: 06/30/19 11:48 Dose: 1 tab Metoprolol Succinate (Toprol Xl -) 25 mg PO DAILY [facility] Last Admin: 06/30/19 11:48 Dose: 25 mg Nystatin (Mycostatin Ointment -) 1 applic TP AM [facility] Last Admin: 06/30/19 06:05 Dose: 1 applic Polyethylene Glycol (Miralax (For Daily Use) -) 17 gm PO BID [facility] Last Admin: 06/30/19 11:48 Dose: 17 gm - Objective Vital Signs: Vital Signs Temperature 98.3 F 06/30/19 09:59 Pulse Rate 69 06/30/19 09:59 Respiratory Rate 20 06/30/19 09:59 Blood Pressure 111/40 L 06/30/19 09:59 O2 Sat by Pulse Oximetry (%) 100 06/29/19 13:39 Constitutional: Yes: No Distress, Calm Cardiovascular: Yes: S1, S2 Respiratory: Yes: Regular, CTA Bilaterally Gastrointestinal: Yes: Normal Bowel Sounds, Soft Musculoskeletal: Yes: WNL Extremities: Yes: WNL Neurological: Yes: Alert, Oriented Labs: CBC, BMP 06/30/19 08:50 06/30/19 08:50 INR, PTT INR 0.99 (0.83-1.09) 06/25/19 07:50 Assessment/Plan 64-year-old male with a past medical history of COPD, right lung adenocarcinoma (not treated), 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 lung mass uti back pain leukocytosis plan continue abx wbc trending down rest as per the team
[2019-06-30] MEDS: ENOXAPARIN NA (PORCINE) 40 MG/0.4 ML DISP.SYRIN SQ SCH (12:18)
[2019-06-30] MEDS ORDERED: ACETAMINOPHEN 1000 MG/100 ML VIAL (NON FORMULARY) IVPB ONE (13:39)
[2019-06-30] MEDS ORDERED: morphine SULFATE 10 MG/5 ML UNIT-DOSE CUP PO SCH (15:00)
[2019-06-30] MEDS: morphine SULFATE 10 MG/5 ML UNIT-DOSE CUP PO PRN ×2 (15:34→23:03)
--- NOTE | 2019-06-30 15:54 | PN ---
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 Pt reports no complaints, issues or overnight events. Pt was afebrile and asymptomatic. Pt reports he has been able to urinate adequately and move his bowel. Admits to chronic back pain and chronic suprapubic pain. Denies f/c/n/v, hematochezia, melena, urinary symptoms, chest pain, sob, headaches, numbness or tingling. OBJECTIVE: Vital Signs Period Temp Pulse Resp BP Sys/Roche Pulse Ox Last 24 Hr 98.0 F-98.3 F 67-75 18-20 95-121/40-58 GENERAL: The patient is awake, alert, and fully oriented, in no acute distress. EYES: PERRL, extraocular movements intact, NECK: supple, no LAD, no carotid bruit LUNGS: Breath sounds equal, clear to auscultation bilaterally, no wheezes, no crackles, HEART: Regular rate and rhythm, S1, S2 without murmur, rub or gallop. ABDOMEN: Soft, nontender, nondistended, normoactive bowel sounds, no guarding, no rebound. EXTREMITIES: 2+ pulses, paraplegic below the waist. Strength 5/5 b/l UE, sensation intact UE b/l NEUROLOGICAL: Normal speech. Paraplegia SKIN: Warm Laboratory Results - last 24 hr 06/30/19 06/30/19 08:50 08:50 WBC 11.3 H RBC 4.02 Hgb 12.6 Hct 37.8 MCV 94.1 MCH 31.5 MCHC 33.5 RDW 14.7 Plt Count 743 H MPV 9.0 Absolute Neuts (auto) 8.5 H Neutrophils % 74.6 Lymphocytes % 11.1 Monocytes % 7.7 Eosinophils % 6.4 H Basophils % 0.2 Nucleated RBC % 0 Sodium 138 Potassium 3.8 Chloride 102 Carbon Dioxide 30 Anion Gap 7 L BUN 8.7 Creatinine 0.6 Est GFR (CKD-EPI)AfAm 121.43 Est GFR (CKD-EPI)NonAf 104.77 Random Glucose 118 H Calcium 9.1 Total Bilirubin 0.4 AST 16 ALT 15 Alkaline Phosphatase 110 Total Protein 6.4 Albumin 2.4 L Active Medications Current Medications Bacitracin (Bacitracin -) 1 applic TP HS [facility] Last Admin: 06/30/19 21:21 Dose: Not Given Diazepam (Valium -) 10 mg PO TID [facility] Last Admin: 07/01/19 05:37 Dose: 10 mg Enoxaparin Sodium (Lovenox -) 40 mg SQ DAILY [facility] Last Admin: 06/30/19 12:18 Dose: Not Given Ceftazidime 1 gm/ Dextrose 50 mls @ 200 mls/hr IVPB Q8H-IV [facility]; Protocol Last Admin: 07/01/19 01:01 Dose: 200 mls/hr Lactobacillus Acidophilus (Bacid -) 1 tab PO DAILY [facility] Last Admin: 06/30/19 11:48 Dose: 1 tab Metoprolol Succinate (Toprol Xl -) 25 mg PO DAILY [facility] Last Admin: 06/30/19 11:48 Dose: 25 mg Morphine Sulfate (Morphine 10 Mg/5 Ml Liquid) 20 mg PO Q8H PRN PRN Reason: PAIN LEVEL 7 - 10 Last Admin: 06/30/19 23:03 Dose: 20 mg Nystatin (Mycostatin Ointment -) 1 applic TP AM [facility] Last Admin: 06/30/19 06:05 Dose: 1 applic Polyethylene Glycol (Miralax (For Daily Use) -) 17 gm PO BID [facility] Last Admin: 06/30/19 21:21 Dose: Not Given ASSESSMENT/PLAN: 64 y/o M w/ PMH of adenocarcinoma of right lung, 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, neurogenic bladder w/ recurrent UTI's, splenectomy, recent lower leg fracture- Tib-Fib (06/14) presents for back pain is now being managed for UTI, #Sepsis 2/2 UTI now resolved- white count normal UCx: Acintobacter Spoke to Jonathan/SHANNON, Last dose ceftazidime IV today- could go home tomorrow Spoke to Ana-catalytic case operator/secondary social studies teacher for alf placement- bed available Labs ordered- cbc, bmp, monitor for fevers overnight #Adenocarcinoma of the right lung Lung bx done today by IR- pending results #Tib/Fib fracture f/u outpt #Chronic back pain Pain management- PO morphine 20mg liquid q8h #DVT ppx SCDs b/l #FEN regular diet Dispo: finish Abx, f/u lung bc results, possible discharge tomorrow Visit type - Emergency Visit Emergency Visit: Yes ED Registration Date: 06/22/19 Care time: The patient presented to the Emergency Department on the above date and was hospitalized for further evaluation of their emergent condition. - New Patient This patient is new to me today: Yes Date on this admission: 07/03/19 - Critical Care Critical Care patient: No - Discharge Referral Referred to [facility] Med P.C.: No ATTENDING PHYSICIAN STATEMENT I saw and evaluated the patient. I reviewed the resident's note and discussed the case with the resident. I agree with the resident's findings and plan as documented. SUBJECTIVE: OBJECTIVE: ASSESSMENT AND PLAN:
--- NOTE | 2019-06-30 20:11 | PN ---
Teaching Attending Note Name of Resident: Jose Antonio Khan ATTENDING PHYSICIAN STATEMENT I saw and evaluated the patient. I reviewed the resident's note and discussed the case with the resident. I agree with the resident's findings and plan as documented. SUBJECTIVE: Patient is comfortable with no acute distress. No fever or chills, no shortness of breath. OBJECTIVE: Vital Signs Temperature 98.6 F 06/30/19 19:25 Pulse Rate 66 06/30/19 19:25 Respiratory Rate 20 06/30/19 19:25 Blood Pressure 118/65 06/30/19 19:25 O2 Sat by Pulse Oximetry (%) 100 06/29/19 13:39 GENERAL: The patient is awake, alert, and oriented, in no acute distress. HEAD: Normal with no signs of trauma. EYES: PERRL, extraocular movements intact, sclera anicteric, conjunctiva clear. ENT: Ears normal, oropharynx clear without exudates, moist mucous membranes. NECK: Trachea midline, full range of motion, supple. LUNGS: Breath sounds equal, clear to auscultation bilaterally, no wheezes, no crackles, no accessory muscle use. HEART: Regular rate and rhythm, S1, S2 without murmur, rub or gallop. ABDOMEN: Soft, nontender, nondistended, normoactive bowel sounds, no guarding, no rebound, no hepatosplenomegaly, no masses. EXTREMITIES: 2+ pulses, warm, well-perfused, no edema. NEUROLOGICAL: Cranial nerves II through XII grossly intact. Normal speech, paraplegic PSYCH: Normal mood, normal affect. SKIN: Warm, dry, normal turgor, no rashes or lesions noted CBCD WBC 11.3 K/mm3 (4.0-10.0) H 06/30/19 08:50 RBC 4.02 M/mm3 (4.00-5.60) 06/30/19 08:50 Hgb 12.6 GM/dL (11.7-16.9) 06/30/19 08:50 Hct 37.8 % (35.4-49) 06/30/19 08:50 MCV 94.1 fl (80-96) 06/30/19 08:50 MCHC 33.5 g/dl (32.0-35.9) 06/30/19 08:50 RDW 14.7 % (11.9-15.9) 06/30/19 08:50 Plt Count 743 K/MM3 (134-434) H 06/30/19 08:50 MPV 9.0 fl (7.5-11.1) 06/30/19 08:50 CMP Sodium 138 mmol/L (136-145) 06/30/19 08:50 Potassium 3.8 mmol/L (3.5-5.1) 06/30/19 08:50 Chloride 102 mmol/L (98-107) 06/30/19 08:50 Carbon Dioxide 30 mmol/L (21-32) 06/30/19 08:50 Anion Gap 7 MMOL/L (8-16) L 06/30/19 08:50 BUN 8.7 mg/dL (7-18) 06/30/19 08:50 Creatinine 0.6 mg/dL (0.55-1.3) 06/30/19 08:50 Random Glucose 118 mg/dL (74-106) H 06/30/19 08:50 Calcium 9.1 mg/dL (8.5-10.1) 06/30/19 08:50 Total Bilirubin 0.4 mg/dL (0.2-1) 06/30/19 08:50 AST 16 U/L (15-37) 06/30/19 08:50 ALT 15 U/L (13-61) 06/30/19 08:50 Alkaline Phosphatase 110 U/L (45-117) 06/30/19 08:50 Total Protein 6.4 g/dl (6.4-8.2) 06/30/19 08:50 Albumin 2.4 g/dl (3.4-5.0) L 06/30/19 08:50 CARDIAC ENZYMES Creatine Kinase Cancelled 06/22/19 15:10 Troponin I Cancelled 06/22/19 15:10 Home Medications Medication Instructions Recorded Diazepam [Valium] 10 mg PO TID PRN tablet MDD 30mg 06/17/18 Morphine 10 mg/5 ml Liquid 20 mg PO Q4H MDD 60mg 06/14/19 [Morphine 10 mg/5 mL Liquid -] Bacitracin - [Bacitracin Topical 1 applic TP HS tube 06/17/19 Ointment -] Heparin - 5,000 unit SQ TID vial 06/17/19 Lactobacillus Acidophilus [Bacid -] 1 tab PO DAILY tab 06/17/19 Lidocaine Patch Removal [Lidoderm 1 each MC DAILY@2200 each 06/17/19 Patch Removal] Metoprolol Succinate [Toprol XL -] 25 mg PO DAILY tab.sr.24h 06/17/19 Nystatin Ointment [Mycostatin 1 applic TP AM applic 06/17/19 Ointment -] Polyethylene Glycol 3350 [Miralax 17 gm PO BID bottle 06/17/19 119 gm Btl -] ASSESSMENT AND PLAN: Patient is a 64 y/o man with h/o spinal cord injury at level of T4, paraplegia, neurogenic bladder, recurrent UTIs, COPD, chronic pain, spleenectomy, adenocarcinoma of R lung, recent Tib/Fib fx and other medical problems who presented from home after bumping his L leg and foot against the wall # Leukocytosis, concern for pyelo. improving on IV ceftaz, ID on the case. will continue Ceftaz total of 10 more days, # Recent L Tib/Fib fx s/p fall s/p cast : f/u with ortho as out pt # Chronic back pain. not changed # hx of paraplegia with hx of spinal cord injury at the level of T4 if no complications , can leave to rehab tomorrow , with a picc line.
[2019-06-30] MEDS: BACITRACIN 15 GM TUBE TOPICAL OINTMENT TP SCH (21:21)
[2019-07-01] MEDS: CEFTAZIDIME PENTAHYDRATE 1 GM in DEXTROSE 5%-WATER - 50 ML IVPB SCH ×2 (01:01→09:53)
[2019-07-01] MEDS: diazePAM 5 MG TABLET PO SCH (05:37)
[2019-07-01] MEDS: NYSTATIN 100000 UNIT/GM TOPICAL OINTMENT 15 GM TUBE TP SCH ×2 (06:10→07:36)
[2019-07-01 08:09] LABS: BASO % 1.8 % (0-2.0); EOS % 5.1 % (0-4.5); HEMATOCRIT 37.8 % (35.4-49); HEMOGLOBIN 12.4 GM/dL (11.7-16.9); LYMPH % 12.9 % (8-40); MCH 30.7 pg (25.7-33.7); MCHC 32.7 g/dl (32.0-35.9); MEAN PLT VOLUME 9.3 fl (7.5-11.1); MONO % 12.5 % (3.8-10.2); NEUT % 67.7 % (42.8-82.8); PLATELET COUNT 727 K/MM3 (134-434); RBC 4.03 M/mm3 (4.00-5.60); RDW 14.7 % (11.9-15.9)
[2019-07-01 09:12] LABS: ALBUMIN 2.5 g/dl (3.4-5.0); BILIRUBIN,TOTAL 0.4 mg/dL (0.2-1); BLOOD UREA NITROGEN 12.1 mg/dL (7-18); CALCIUM 8.7 mg/dL (8.5-10.1); CREATININE 0.6 mg/dL (0.55-1.3); POTASSIUM 4.1 mmol/L (3.5-5.1); TOT PROT 6.6 g/dl (6.4-8.2)
[2019-07-01] MEDS: POLYETHYLENE GLYCOL 3350 119 GM BTL PO SCH (09:52)
[2019-07-01] MEDS: metoPROLOL SUCCINATE 25 MG TAB.SR.24H (FP) PO SCH (09:52)
[2019-07-01] MEDS: LACTOBACILLUS ACIDOPHILUS 1 TABLET PO SCH (09:52)
[2019-07-01] MEDS: morphine SULFATE 10 MG/5 ML UNIT-DOSE CUP PO PRN (09:52)
[2019-07-01] MEDS: ENOXAPARIN NA (PORCINE) 40 MG/0.4 ML DISP.SYRIN SQ SCH (09:54)
--- NOTE | 2019-07-01 10:50 | PN ---
Progress Note, Physician History of Present Illness: patient stable no new issues - Current Medication List Current Medications: Active Medications Bacitracin (Bacitracin -) 1 applic TP HS [facility] Last Admin: 06/30/19 21:21 Dose: Not Given Diazepam (Valium -) 10 mg PO TID [facility] Last Admin: 07/01/19 05:37 Dose: 10 mg Enoxaparin Sodium (Lovenox -) 40 mg SQ DAILY [facility] Last Admin: 07/01/19 09:54 Dose: Not Given Ceftazidime 1 gm/ Dextrose 50 mls @ 200 mls/hr IVPB Q8H-IV [facility]; Protocol Last Admin: 07/01/19 09:53 Dose: 200 mls/hr Lactobacillus Acidophilus (Bacid -) 1 tab PO DAILY [facility] Last Admin: 07/01/19 09:52 Dose: 1 tab Metoprolol Succinate (Toprol Xl -) 25 mg PO DAILY [facility] Last Admin: 07/01/19 09:52 Dose: 25 mg Morphine Sulfate (Morphine 10 Mg/5 Ml Liquid) 20 mg PO Q8H PRN PRN Reason: PAIN LEVEL 7 - 10 Last Admin: 07/01/19 09:52 Dose: 20 mg Nystatin (Mycostatin Ointment -) 1 applic TP AM [facility] Last Admin: 07/01/19 07:36 Dose: Not Given Polyethylene Glycol (Miralax (For Daily Use) -) 17 gm PO BID [facility] Last Admin: 07/01/19 09:52 Dose: Not Given - Objective Vital Signs: Vital Signs Temperature 97.7 F 07/01/19 06:00 Pulse Rate 63 07/01/19 06:00 Respiratory Rate 20 06/30/19 23:00 Blood Pressure 92/48 L 07/01/19 06:00 O2 Sat by Pulse Oximetry (%) 100 06/30/19 21:00 Constitutional: Yes: No Distress, Calm Cardiovascular: Yes: S1, S2 Respiratory: Yes: Regular, CTA Bilaterally Gastrointestinal: Yes: Normal Bowel Sounds, Soft Genitourinary: Yes: Other Musculoskeletal: Yes: Other Extremities: Yes: Other (contracted) Neurological: Yes: Alert, Oriented Psychiatric: Yes: Alert, Oriented Labs: CBC, BMP 07/01/19 07:38 07/01/19 07:38 INR, PTT INR 0.99 (0.83-1.09) 06/25/19 07:50 Assessment/Plan 64-year-old male with a past medical history of COPD, right lung adenocarcinoma (not treated), 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 lung mass uti back pain leukocytosis plan continue abx monitor wbc rest as per the team
--- NOTE | 2019-07-01 11:19 | PN ---
Teaching Attending Note Name of Resident: Jose Antonio Khan ATTENDING PHYSICIAN STATEMENT I saw and evaluated the patient. I reviewed the resident's note and discussed the case with the resident. I agree with the resident's findings and plan as documented. SUBJECTIVE: Patient is comfortable with no acute distress. going to rehab. OBJECTIVE: Vital Signs Temperature 97.7 F 07/01/19 06:00 Pulse Rate 63 07/01/19 06:00 Respiratory Rate 20 06/30/19 23:00 Blood Pressure 92/48 L 07/01/19 06:00 O2 Sat by Pulse Oximetry (%) 100 06/30/19 21:00 GENERAL: The patient is awake, alert, and oriented, in no acute distress. HEAD: Normal with no signs of trauma. EYES: PERRL, extraocular movements intact, sclera anicteric, conjunctiva clear. ENT: Ears normal, oropharynx clear without exudates, moist mucous membranes. NECK: Trachea midline, full range of motion, supple. LUNGS: Breath sounds equal, clear to auscultation bilaterally, no wheezes, no crackles, no accessory muscle use. HEART: Regular rate and rhythm, S1, S2 without murmur, rub or gallop. ABDOMEN: Soft, NT,ND, normoactive bowel sounds, no guarding, no rebound, no hepatosplenomegaly, no masses. EXTREMITIES: 2+ pulses, warm, well-perfused, no edema. NEUROLOGICAL: Cranial nerves II through XII grossly intact. Normal speech, paraplegic PSYCH: Normal mood, normal affect. SKIN: Warm, dry, normal turgor. CBCD WBC 13.0 K/mm3 (4.0-10.0) H 07/01/19 07:38 RBC 4.03 M/mm3 (4.00-5.60) 07/01/19 07:38 Hgb 12.4 GM/dL (11.7-16.9) 07/01/19 07:38 Hct 37.8 % (35.4-49) 07/01/19 07:38 MCV 94.0 fl (80-96) 07/01/19 07:38 MCHC 32.7 g/dl (32.0-35.9) 07/01/19 07:38 RDW 14.7 % (11.9-15.9) 07/01/19 07:38 Plt Count 727 K/MM3 (134-434) H 07/01/19 07:38 MPV 9.3 fl (7.5-11.1) 07/01/19 07:38 CMP Sodium 139 mmol/L (136-145) 07/01/19 07:38 Potassium 4.1 mmol/L (3.5-5.1) 07/01/19 07:38 Chloride 102 mmol/L (98-107) 07/01/19 07:38 Carbon Dioxide 27 mmol/L (21-32) 07/01/19 07:38 Anion Gap 10 MMOL/L (8-16) 07/01/19 07:38 BUN 12.1 mg/dL (7-18) 07/01/19 07:38 Creatinine 0.6 mg/dL (0.55-1.3) 07/01/19 07:38 Random Glucose 84 mg/dL (74-106) 07/01/19 07:38 Calcium 8.7 mg/dL (8.5-10.1) 07/01/19 07:38 Total Bilirubin 0.4 mg/dL (0.2-1) 07/01/19 07:38 AST 15 U/L (15-37) 07/01/19 07:38 ALT 16 U/L (13-61) 07/01/19 07:38 Alkaline Phosphatase 121 U/L (45-117) H 07/01/19 07:38 Total Protein 6.6 g/dl (6.4-8.2) 07/01/19 07:38 Albumin 2.5 g/dl (3.4-5.0) L 07/01/19 07:38 CARDIAC ENZYMES Creatine Kinase Cancelled 06/22/19 15:10 Troponin I Cancelled 06/22/19 15:10 Current Medications Generic Name Dose Route Start Last Admin Trade Name Freq PRN Reason Stop Dose Admin Bacitracin 1 applic 06/23/19 22:00 06/30/19 21:21 Bacitracin - TP Not Given HS [facility] Diazepam 10 mg 06/26/19 14:00 07/01/19 05:37 Valium - PO 10 mg TID [facility] Administration Enoxaparin Sodium 40 mg 06/23/19 10:00 07/01/19 09:54 Lovenox - SQ Not Given DAILY [facility] Ceftazidime 1 gm/ Dextrose 50 mls @ 200 mls/hr 06/25/19 18:00 07/01/19 09:53 IVPB 200 mls/hr Q8H-IV [facility] Administration Protocol Lactobacillus Acidophilus 1 tab 06/23/19 10:00 07/01/19 09:52 Bacid - PO 1 tab DAILY [facility] Administration Metoprolol Succinate 25 mg 06/23/19 10:00 07/01/19 09:52 Toprol Xl - PO 25 mg DAILY [facility] Administration Morphine Sulfate 20 mg 06/30/19 15:30 07/01/19 09:52 Morphine 10 Mg/5 Ml Liquid PO 20 mg Q8H PRN Administration PAIN LEVEL 7 - 10 Nystatin 1 applic 06/23/19 07:00 07/01/19 07:36 Mycostatin Ointment - TP Not Given AM [facility] Polyethylene Glycol 17 gm 06/23/19 01:00 07/01/19 09:52 Miralax (For Daily Use) - PO Not Given BID [facility] Home Medications Medication Instructions Recorded Diazepam [Valium] 10 mg PO TID PRN tablet MDD 30mg 06/17/18 Morphine 10 mg/5 ml Liquid 20 mg PO Q4H MDD 60mg 06/14/19 [Morphine 10 mg/5 mL Liquid -] Bacitracin - [Bacitracin Topical 1 applic TP HS tube 06/17/19 Ointment -] Heparin - 5,000 unit SQ TID vial 06/17/19 Lactobacillus Acidophilus [Bacid -] 1 tab PO DAILY tab 06/17/19 Lidocaine Patch Removal [Lidoderm 1 each MC DAILY@2200 each 06/17/19 Patch Removal] Metoprolol Succinate [Toprol XL -] 25 mg PO DAILY tab.sr.24h 06/17/19 Nystatin Ointment [Mycostatin 1 applic TP AM applic 06/17/19 Ointment -] Polyethylene Glycol 3350 [Miralax 17 gm PO BID bottle 06/17/19 119 gm Btl -] Ceftazidime Pentahydrate [Fortaz 1 gm IVPB Q8H-IV #12 vial 07/01/19 (Restricted To Id) -] ASSESSMENT AND PLAN: Patient is a 64 y/o man with h/o spinal cord injury at level of T4, paraplegia, neurogenic bladder, recurrent UTIs, COPD, chronic pain, spleenectomy, adenocarcinoma of R lung, recent Tib/Fib fx who presented from home after bumping his L leg and foot against the wall # Leukocytosis, concern for pyelo. improving on IV ceftaz. day # 6, as per ID total of 10 day treatments,patient is going to rehab. [facility].for IV antibiotics. # Recent L Tib/Fib fx s/p fall s/p cast : f/u with ortho as out pt # Hx of paraplegia with hx of spinal cord injury at the level of T4 has a picc line. discharge the patient to rehab.
[2019-07-01 12:22] VITALS: BP 108/55; PULSE 60; TEMP 97.8
--- NOTE | 2019-07-01 15:31 | PN ---
Physical Exam: SUBJECTIVE: Patient seen and examined OBJECTIVE: Vital Signs Period Temp Pulse Resp BP Sys/Roche Pulse Ox Last 24 Hr 97.7 F-98.6 F 60-66 20-20 92-118/48-65 97-100 GENERAL: The patient is awake, alert, and fully oriented, in no acute distress. HEAD: Normal with no signs of trauma. EYES: PERRL, extraocular movements intact, sclera anicteric, conjunctiva clear. No ptosis. ENT: Ears normal, nares patent, oropharynx clear without exudates, moist mucous membranes. NECK: Trachea midline, full range of motion, supple. LUNGS: Breath sounds equal, clear to auscultation bilaterally, no wheezes, no crackles, no accessory muscle use. HEART: Regular rate and rhythm, S1, S2 without murmur, rub or gallop. ABDOMEN: Soft, nontender, nondistended, normoactive bowel sounds, no guarding, no rebound, no hepatosplenomegaly, no masses. EXTREMITIES: 2+ pulses, warm, well-perfused, no edema. NEUROLOGICAL: Cranial nerves II through XII grossly intact. Normal speech, gait not observed. PSYCH: Normal mood, normal affect. SKIN: Warm, dry, normal turgor, no rashes or lesions noted Laboratory Results - last 24 hr 07/01/19 07/01/19 07:38 07:38 WBC 13.0 H RBC 4.03 Hgb 12.4 Hct 37.8 MCV 94.0 MCH 30.7 MCHC 32.7 RDW 14.7 Plt Count 727 H MPV 9.3 Absolute Neuts (auto) 8.8 H Neutrophils % 67.7 Lymphocytes % 12.9 Monocytes % 12.5 H Eosinophils % 5.1 H Basophils % 1.8 D Nucleated RBC % 0 Sodium 139 Potassium 4.1 Chloride 102 Carbon Dioxide 27 Anion Gap 10 BUN 12.1 Creatinine 0.6 Est GFR (CKD-EPI)AfAm 121.43 Est GFR (CKD-EPI)NonAf 104.77 Random Glucose 84 Calcium 8.7 Total Bilirubin 0.4 AST 15 ALT 16 Alkaline Phosphatase 121 H Total Protein 6.6 Albumin 2.5 L ASSESSMENT/PLAN: ATTENDING PHYSICIAN STATEMENT I saw and evaluated the patient. I reviewed the resident's note and discussed the case with the resident. I agree with the resident's findings and plan as documented. SUBJECTIVE: OBJECTIVE: ASSESSMENT AND PLAN:
--- NOTE | 2019-07-01 15:49 | DS ---
Physical Exam: SUBJECTIVE: Patient seen and examined. Patient is asymptomatic, afebrile, without any c/o or issues. Patient is stable and ready for discharge OBJECTIVE: Vital Signs Period Temp Pulse Resp BP Sys/Roche Pulse Ox Last 24 Hr 97.7 F-98.6 F 60-66 20-20 92-118/48-65 97-100 PHYSICAL EXAM GENERAL: The patient is awake, alert, and fully oriented, in no acute distress. EYES: PERRL, extraocular movements intact, ENT: moist mucous membranes. NECK: supple. LUNGS: Breath sounds equal, clear to auscultation bilaterally, no wheezes, no crackles, HEART: Regular rate and rhythm, S1, S2 without murmur, rub or gallop. ABDOMEN: Soft, nontender, nondistended, normoactive bowel sounds, no guarding, no rebound, EXTREMITIES: 2+ pulses, warm, well-perfused, no edema. NEUROLOGICAL: Strength 5/5 b/l UE, sensation 5/5 UE b/l. Paraplegic PSYCH: Normal mood, SKIN: Warm, dry, LABS Laboratory Results - last 24 hr 07/01/19 07/01/19 07:38 07:38 WBC 13.0 H RBC 4.03 Hgb 12.4 Hct 37.8 MCV 94.0 MCH 30.7 MCHC 32.7 RDW 14.7 Plt Count 727 H MPV 9.3 Absolute Neuts (auto) 8.8 H Neutrophils % 67.7 Lymphocytes % 12.9 Monocytes % 12.5 H Eosinophils % 5.1 H Basophils % 1.8 D Nucleated RBC % 0 Sodium 139 Potassium 4.1 Chloride 102 Carbon Dioxide 27 Anion Gap 10 BUN 12.1 Creatinine 0.6 Est GFR (CKD-EPI)AfAm 121.43 Est GFR (CKD-EPI)NonAf 104.77 Random Glucose 84 Calcium 8.7 Total Bilirubin 0.4 AST 15 ALT 16 Alkaline Phosphatase 121 H Total Protein 6.6 Albumin 2.5 L HOSPITAL COURSE: Date of Admission:06/22/19 64 y.o. M PMH COPD, R lung adenocarcinoma (no chemo/rads/ surgery), paraplegia 2 /2 spinal cord transection T2-T4 in , neurogenic bladder, recurrent UTIs, hypotension, recent admission at [facility] s/p left leg dital tibial fracture (d/c;d 06/18/19) presented w/ sepsis 2/2 to UTI Patient's sepsis and UTI was diagnosed with Urine Culture and UA and UTI treated with antibiotics and discharged w/ a Picc line to complete the dosage of Antibiotics. Further tests were done including blood work, labs, renal Ultrasound. Patient also came in with a tibial-fibular fracture that was immobilized. Patient was also found to have a right lung nodule on CT which was consistent with Adenocarcinoma of the right lung. Further tests including biopsy by IR was done to target therapy and chemo. Patient's chronic neurogenic bladder pain and back pain was controlled with pain management. Patient is currently stable, asymptomatic and have no further c/o. CT chest: multiple pulmonary masses consistant with neoplastic lesions, mod- severe COPD CXR: no infiltrate, possible pulmonary nodule seen Foot/Ankle x ray: tib-fib fracture Date of Discharge: 07/01/19 Minutes to complete discharge: 35 Discharge Summary Problems reviewed: Yes Reason For Visit: UTI,PYELONEPHRITIS Condition: Good - Instructions Diet, Activity, Other Instructions: You were admitted to the hospital for urinary tract infection and was treated While you were here we evaluated your urinary tract infection and treated you with antibiotics, we also performed multiple test to evaluate your Lung cancer including blood work, x rays, CT scans and lung biopsy. We also evaluated your leg fracture with test including x rays. Continue Antibiotics Ceftazidime for 4 more days Continue all your home medications as prescribed follow up with your pcp within 1 week Return to the emergency department if you have chest pain, shortness of breath, nausea, vomiting, worsening of your symptoms or anything medical emergency. Referrals: Lupillo Salazar MD [Staff Physician] - 1 Week Juan Manuel Kang MD [Staff Physician] - 1 Week Sylvester Daniels MD [Staff Physician] - 2 Weeks Disposition: LONG-TERM FACILITY - Home Medications Comprehensive Discharge Medication List: Ambulatory Orders Diazepam [Valium] 10 mg PO TID PRN tablet MDD 30mg 06/17/18 Morphine 10 mg/5 ml Liquid [Morphine 10 mg/5 mL Liquid -] 20 mg PO Q4H MDD 60mg 06/14/19 Bacitracin - [Bacitracin Topical Ointment -] 1 applic TP HS tube 06/17/19 Heparin - 5,000 unit SQ TID vial 06/17/19 Lactobacillus Acidophilus [Bacid -] 1 tab PO DAILY tab 06/17/19 Lidocaine Patch Removal [Lidoderm Patch Removal] 1 each MC DAILY@2200 each 06/26 Metoprolol Succinate [Toprol XL -] 25 mg PO DAILY tab.sr.24h 06/17/19 Nystatin Ointment [Mycostatin Ointment -] 1 applic TP AM applic 06/17/19 Polyethylene Glycol 3350 [Miralax 119 gm Btl -] 17 gm PO BID bottle 06/17/19 Ceftazidime Pentahydrate [Fortaz (Restricted To Id) -] 1 gm IVPB Q8H-IV #12 vial 07/01/19 This patient is new to me today: Yes Date on this admission: 07/03/19 Emergency Visit: Yes ED Registration Date: 06/22/19 Care time: The patient presented to the Emergency Department on the above date and was hospitalized for further evaluation of their emergent condition. Critical Care patient: No - Discharge Referral Referred to [facility] No ATTENDING PHYSICIAN STATEMENT I saw and evaluated the patient. I reviewed the resident's note and discussed the case with the resident. I agree with the resident's findings and plan as documented. SUBJECTIVE: OBJECTIVE: ASSESSMENT AND PLAN:
--- NOTE | 2019-07-01 16:19 | PATH ---
Surgical Pathology Report Patient Name: LORELEI MARVIN [facility]. Rec. #: [id number] /Age/Gender: 1955 (Age: 64) / M Account: [id number] Location: [address] [place] [address]/[facility] Taken: 06/29/2019 Received: 06/29/2019 Reported: 07/01/2019 Physicians: Margy Bales M.D. Specimen(s) Received RIGHT LUNG BIOPSY Clinical History 64-year-old male with bilateral spiculated lung nodules Final Diagnosis RIGHT LUNG BIOPSY: ADENOCARCINOMA, MODERATELY DIFFERENTIATED, WITH LEPIDIC AND PAPILLARY FEATURES. Comment: Immunohistochemical stained slides demonstrate tumor cells to be positive for CK7, TTF-1, Napsin A, negative for p40 and CK20. The morphology and immunophenotype support a diagnosis of adenocarcinoma of lung primary. Immunohistochemistry stains P40 and Napsin A performed at [place], [place] ([id number]) interpreted at [facility]. Immunohistochemistry stains CK7, CK20, and TTF-1 performed and interpreted at [facility]. Positive and negative controls (internal if applicable) show appropriate results. Electronically Signed Kyle John M.D. Gross Description Received in formalin labeled "right lung biopsy," are 4 camacho, cylindrical portions of soft tissue ranging from 0.5-1.6 cm in length and averaging 0.1 cm in diameter. The specimens are submitted in toto in one cassette. /06/29/2019 saudi06/29/2019
== END 2019-07-01 11:57 | DRG 689 ==
LOC: JER 12:36 → JERBED 18:58 → J6S 06-23 05:57
PROVIDERS: ADMIT Internal Medicine; ATTEND Internal Medicine
PROC: 0BBK3ZX Excision of Right Lung, Percutaneous Approach, Diagnostic (ICD-10-PCS; 2019-06-29)
PROC: 02HV33Z Insertion of Infusion Device into Superior Vena Cava, Percutaneous Approach (ICD-10-PCS; principal; 2019-06-30)
PROC: B518ZZA Fluoroscopy of Superior Vena Cava, Guidance (ICD-10-PCS; 2019-06-30)
DX: N39.0 Urinary tract infection, site not specified (principal); E43 Unspecified severe protein-calorie malnutrition; A41.9 Sepsis, unspecified organism; C34.11 Malignant neoplasm of upper lobe, right bronchus or lung; G82.20 Paraplegia, unspecified; J44.9 Chronic obstructive pulmonary disease, unspecified; E88.09 Other disorders of plasma-protein metabolism, not elsewhere classified; D72.829 Elevated white blood cell count, unspecified; S82.302A Unspecified fracture of lower end of left tibia, initial encounter for closed fracture; N31.8 Other neuromuscular dysfunction of bladder; K59.00 Constipation, unspecified; Z68.20 Body mass index [BMI] 20.0-20.9, adult; T14.8XXA Other injury of unspecified body region, initial encounter; X58.XXXA Exposure to other specified factors, initial encounter; Y93.89 Activity, other specified; Y92.098 Other place in other non-institutional residence as the place of occurrence of the external cause; D47.3 Essential (hemorrhagic) thrombocythemia
CPT/HCPCS: 27752; 32405; 36415; 36569; 71045-TC-FY; 71250-TC; 72128-TC; 72131-TC; 73523-TC-FY; 73552-TC-LT-FY; 73562-TC-LT-FY; 73590-TC-LT-FY; 73610-TC-LT-FY; 73630-TC-LT; 76775-TC; 77001-TC-FY; 77012-TC; 80048; 80053; 81003; 83690; 83735; 84100; 85025; 85027; 85610; 85730; 87040; 87086; 87186; 93005; 93010; 96365; 96366; 96375; 99283-25; 99284-25; C1751; G0378; J1644; J7030

== ENCOUNTER 2019-07-20 10:18 | Emergency (ER) | payer OTHER, BC ==
[2019-07-20 10:36] VITALS: TEMP 97.7; BMI 22.8
--- NOTE | 2019-07-20 10:57 | PDOC ---
History of Present Illness - General Chief Complaint: Pain Stated Complaint: PAIN Time Seen by Provider: 07/20/19 10:52 History Source: Patient Exam Limitations: No Limitations - History of Present Illness Initial Comments: 07/20/19 10:55 CHIEF COMPLAINT: Worsening back pain HISTORY OF PRESENT ILLNESS: Mr. Valenzuela is a 64 y.o. 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 Patient presents emergency department with a complaint of left wrist pain ( atraumatic), no limitations in motion He also reports right hand pain which is a new complaint, also not associated with trauma. Patient reports that after discharge from the hospital he was actually doing well. Knows about his chronic thoracic back pain. He supposed be taking morphine. Today came to the emergency department having not taken his p.o. medications. He denies any new traumatic injuries. No fevers no chills. PAST MEDICAL HISTORY: as per hpi PAST SURGICAL HISTORY: Multiple orthopedic surgery's for broken bones, splenectomy Social History: Smokin packs per day x 25 years, quit @ age 28 Alcohol: denies Drugs: denies Allergies: NKDA ROS: GENERAL/CONSTITUTIONAL: No: fever, chills, weakness, loss of appetite. HEAD, EYES, EARS, NOSE AND THROAT: No: change in vision, ear pain, discharge, sore throat, throat swelling. CARDIOVASCULAR: No: chest pain, lightheadedness, palpitations, syncope RESPIRATORY: No: cough, shortness of breath, wheezing, hemoptysis, stridor. GASTROINTESTINAL: No: nausea, vomiting, diarrhea, abdominal cramping, rectal bleeding, constipation. GENITOURINARY: No: dysuria, hematuria, frequency, urgency, flank pain. MUSCULOSKELETAL: Yes: Thoracic Back pain, bilateral upper extremity pain No: neck pain, joint pain, muscle swelling or pain SKIN AND BREASTS: No: lesions, pallor, rash or easy bruising. NEUROLOGIC: No: headache, vertigo, paresthesias, weakness ENDOCRINE: No: unexplained weight gain or loss HEMATOLOGIC/LYMPHATIC: No: anemia, easy bleeding, swelling nodes. PE: GENERAL: AOx3. pt appears to be in pain. HEENT: NCAT. EOMI. PERRLA. LUNGS: CTABL although difficult to assess R lower lobe d/t patient's positioning -- too painful for him to allow full auscultation HEART: Regular rate and rhythm, normal S1 and S2 without murmurs. ABDOMEN: Soft, nontender, no spurapubic tenderness, not distended, normoactive bowel sounds, no guarding. MUSCULOSKELETAL: + CVA tenderness left side; could not assess R side d/t body positioning. R hand flexed at rest able to extend digits & oppose thumbs b/l but with difficulty. UPPER EXTREMITIES: 2+ pulses palpated b/l LE. LOWER EXTREMITIES: Periph pulses intact. No LE edema. LLE brace present. Mild erythema of LLE. No LE ulcerations/ breaks in skin NEUROLOGICAL: Cranial nerves II-XII intact. Normal speech. Pt cannot ambulate. No sensation below T3; diminished sensation at T3. PSYCHIATRIC: Patient appears annoyed, bothered by the interview. SKIN: No rashes/ lesions/ ulcers noted. 07/20/19 12:06 07/22/19 19:48 Is this a multiple visit Asthma Patient?: No Past History - Past Medical History Allergies/Adverse Reactions: Allergies Allergy/AdvReac Type Severity Reaction Status Date / Time No Known Allergies Allergy Verified 07/20/19 10:29 Home Medications: Ambulatory Orders Diazepam [Valium] 10 mg PO TID PRN tablet MDD 30mg 06/17/18 Morphine 10 mg/5 ml Liquid [Morphine 10 mg/5 mL Liquid -] 20 mg PO Q4H MDD 60mg 06/14/19 Bacitracin - [Bacitracin Topical Ointment -] 1 applic TP HS tube 06/17/19 Heparin - 5,000 unit SQ TID vial 06/17/19 Lactobacillus Acidophilus [Bacid -] 1 tab PO DAILY tab 06/17/19 Lidocaine Patch Removal [Lidoderm Patch Removal] 1 each MC DAILY@2200 each 06/26 Metoprolol Succinate [Toprol XL -] 25 mg PO DAILY tab.sr.24h 06/17/19 Polyethylene Glycol 3350 [Miralax 119 gm Btl -] 17 gm PO BID bottle 06/17/19 Anemia: No Asthma: No Cancer: No Cardiac Disorders: No CVA: No COPD: Yes CHF: No Dementia: No Diabetes: No GI Disorders: No Disorders: Yes (Recurrent UTI, 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) HTN: (Hypotension) Hypercholesterolemia: No Liver Disease: No Seizures: No Thyroid Disease: No - Surgical History Abdominal Surgery: No Appendectomy: No Cardiac Surgery: No Cholecystectomy: No Lung Surgery: No Neurologic Surgery: No Orthopedic Surgery: Yes (fracture right wrist s/p fusion) - Immunization History Td Vaccination: No Immunization Up to Date: No - Psycho Social/Smoking Cessation Hx Smoking Status: No Smoking History: Former smoker Years of Tobacco Use: 0 Have you smoked in the past 12 months: No Number of Cigarettes Smoked Daily: 3 If you are a former smoker, when did you quit?: 1985 Cigars Per Day: 0 Information on smoking cessation initiated: No Hx Alcohol Use: No Drug/Substance Use Hx: No Substance Use Type: None Hx Substance Use Treatment: No *Physical Exam - Vital Signs Last Vital Signs Temp Pulse Resp BP Pulse Ox 97.7 F 82 18 115/49 L 98 07/20/19 10:29 07/20/19 10:29 07/20/19 10:29 07/20/19 10:29 07/20/19 10:29 ED Treatment Course - LABORATORY CBC & Chemistry Diagram: 07/20/19 12:10 07/20/19 12:10 Medical Decision Making - Medical Decision Making 07/20/19 12:07 64-year-old male with a history of chronic back pain presenting to the emergency department with a complaint of worsening of his back pain. Prior CT scanning revealed chronic fracture deformities involving T3, T4 vertebral bodies with marked bony retropulsion, pulmonary nodule suggestive of primary neoplastic disease 07/20/19 12:08 07/20/19 14:52 Laboratory Tests 07/01/19 07/20/19 07/20/19 07:38 12:10 12:10 WBC 13.0 H 14.4 H Hgb 12.4 14.6 Hct 37.8 44.5 D Plt Count 727 H 562 H D Sodium 135 L Potassium 5.1 BUN 5.6 L Creatinine 0.[address]: Chronic posttraumatic deformity involving T3-T4 vertebral bodies with significant intraspinal retropulsion of bony fragments: It causing spinal stenosis there is ossification of the paraspinal soft tissues unchanged contour of height of vertebral bodies as compared to June 22 Right wrist and hand: There is fusion of the radius with the carpal bones possible fusion at the base of the second and third metacarpals no acute fractures Left wrist and hand: Nonhealed ulnar styloid fracture deformity and an old fracture deformity of the first metacarpal. No acute processes 07/20/19 15:02 We will plan to discharge to home Patient states he feels safe at home Does not want to be sent to a correction Patient does not want any changes to his home health aide (although states he has a new one who is a little more rough with him than prior wire lather) 07/20/19 15:05 Clinical impression: Chronic back pain, repeat presentation Discharge - Discharge Information Problems reviewed: Yes Clinical Impression/Diagnosis: Chronic pain Qualifiers: Chronic pain type: other chronic pain Qualified Code(s): G89.29 - Other chronic pain Condition: Stable Disposition: HOME - Admission No - Follow up/Referral - Patient Discharge Instructions Patient Printed Discharge Instructions: Managing Chronic Low Back Pain, DI for Vertebral Fracture, DI for Prescription Opioid Use Additional Instructions: Mr. Pulido Thank you for coming in to the ER today Please be sure to follow up with your pain management doctor, your primary care physician Return to the emergency department immediately with ANY new, persistent or worsening symptoms. Continue any medications as previously prescribed by your physician. You should follow up with your primary doctor as soon as possible regarding today's emergency department visit. Please make sure your doctor reviews the results of your emergency evaluation. Thank you for coming to the Emergency Department today for your care. It was a pleasure to see you today. Please note that your evaluation is INCOMPLETE until you follow-up with your doctor. - Post Discharge Activity
[2019-07-20] MEDS ORDERED: diazePAM 2 MG TABLET PO ONE (11:12)
[2019-07-20] MEDS ORDERED: morphine CARPU-JECT 4 MG/1 ML DISP.SYRIN IVPUSH ONE (11:12)
[2019-07-20] MEDS ORDERED: diazePAM 2 MG TABLET ONE (11:58)
[2019-07-20] MEDS ORDERED: morphine SULFATE 4 MG/ML VIAL ONE (11:58)
[2019-07-20] MEDS ORDERED: MORPHINE SULFATE 2 MG/ML VIAL ONE (11:59)
[2019-07-20 12:26] LABS: BASO % 0.2 % (0-2.0); EOS % 3.3 % (0-4.5); HEMATOCRIT 44.5 % (35.4-49); HEMOGLOBIN 14.6 GM/dL (11.7-16.9); LYMPH % 12.3 % (8-40); MCH 30.1 pg (25.7-33.7); MCHC 32.9 g/dl (32.0-35.9); MEAN CELL VOLUME 91.6 fl (80-96); MEAN PLT VOLUME 8.6 fl (7.5-11.1); MONO % 9.6 % (3.8-10.2); NEUT % 74.6 % (42.8-82.8); PLATELET COUNT 562 K/MM3 (134-434); RBC 4.86 M/mm3 (4.00-5.60); RDW 15.2 % (11.9-15.9); WHITE BLOOD COUNT 14.4 K/mm3 (4.0-10.0)
[2019-07-20 12:51] LABS: ALBUMIN 2.7 g/dl (3.4-5.0); BILIRUBIN,TOTAL 0.7 mg/dL (0.2-1); BLOOD UREA NITROGEN 5.6 mg/dL (7-18); CALCIUM 8.9 mg/dL (8.5-10.1); CREATININE 0.6 mg/dL (0.55-1.3); POTASSIUM 5.1 mmol/L (3.5-5.1)
[2019-07-20 13:59] LABS: ANISOCYTOSIS 0; MACROCYTOSIS 0; PLATELET ESTIMATE INCREASED
[2019-07-20 14:50] VITALS: BP 156/62; PULSE 58
== END 2019-07-20 17:30 | disposition home or self-care (01) ==
LOC: JER 10:18
PROC: 3E033NZ Introduction of Analgesics, Hypnotics, Sedatives into Peripheral Vein, Percutaneous Approach (ICD-10-PCS; principal; 2019-07-20)
DX: M54.6 Pain in thoracic spine (principal); G89.29 Other chronic pain; C34.91 Malignant neoplasm of unspecified part of right bronchus or lung; J44.9 Chronic obstructive pulmonary disease, unspecified; G82.20 Paraplegia, unspecified; N31.9 Neuromuscular dysfunction of bladder, unspecified; Z87.440 Personal history of urinary (tract) infections; Z87.81 Personal history of (healed) traumatic fracture; M43.8X4 Other specified deforming dorsopathies, thoracic region; M21.832 Other specified acquired deformities of left forearm; Z87.891 Personal history of nicotine dependence
CPT/HCPCS: 36415; 72128-TC; 73110-TC-LT-FY; 73110-TC-RT-FY; 73130-TC-LT-FY; 80053; 85025; 96374; 99283-25

== ENCOUNTER 2019-09-04 20:21 | Emergency (ER) | payer OTHER, BC ==
[2019-09-04 20:30] VITALS: BMI 22.8
--- NOTE | 2019-09-04 20:53 | PDOC ---
Attending Attestation - Resident Resident Name: Jose Antonio Khan - ED Attending Attestation I have performed the following: I have examined & evaluated the patient, The case was reviewed & discussed with the resident, I agree w/resident's findings & plan - HPI HPI: 09/04/19 22:00 Pt unable to cath self and needs to be cathed.States that normally he urinates as usual; today couldn't pass urine. +urine States that he doesnt want to have an indwelling cath. Current HHAide refusing to cath him. No other complaints. 09/04/19 22:21 - Physicial Exam PE: 09/04/19 22:00 Pt is paraplegic and bedridden Afebrile Abd soft NT ND legs are cacectic bilat; paralyzed No rashes Pt able to move arms bilaterally Pt has no clark driver in the right hand/clawhand Afebrile - Medical Decision Making 09/04/19 22:21 Pt stable to go home with levaquin; pne dose in the ER and pt is eating a sandwich and drinking. He has 24/7 HHAide and he is stable to go home with ambulance
[2019-09-04] MEDS ORDERED: SODIUM CHLORIDE 1,000 ML IV STA (20:55)
[2019-09-04] MEDS ORDERED: morphine CARPU-JECT 4 MG/1 ML DISP.SYRIN IVPUSH ONE (20:55)
[2019-09-04] MEDS ORDERED: morphine SULFATE 4 MG/ML VIAL ONE (21:04)
--- NOTE | 2019-09-04 21:50 | PDOC ---
History of Present Illness - General Chief Complaint: Urinary Problem Stated Complaint: URINARY PROBLEM Time Seen by Provider: 09/04/19 20:53 History Source: Patient - History of Present Illness Initial Comments: 64 y.o. M PMH COPD, R lung adenocarcinoma (no chemo/rads/ surgery), paraplegia 2 /2 spinal cord transection T2-T4 in , neurogenic bladder, recurrent UTIs, hypotension, recent admission at [facility] s/p left leg dital tibial fracture (d/c;d 06/18/19) presented for inability to urinate due to inability to self catheterize. Pt reports that he usually can self catheterize if he is unable gagandeep urinate but this time, he had difficulty and therefore was unable to urinate. admits to bladder distention. Denies f/c/n/v/d/chest pain, hematuria, dysuria, abdominal pain. 09/04/19 21:44 Modifying Factors: improves with: other Associated Symptoms: denies: chest pain, cough, fever/chills, nausea/vomiting, shortness of breath Past History - Travel Traveled outside of the country in the last 30 days: No Close contact w/someone who was outside of country & ill: No - Past Medical History Allergies/Adverse Reactions: Allergies Allergy/AdvReac Type Severity Reaction Status Date / Time No Known Allergies Allergy Verified 07/20/19 10:29 Home Medications: Ambulatory Orders Diazepam [Valium] 10 mg PO TID PRN tablet MDD 30mg 06/17/18 Morphine 10 mg/5 ml Liquid [Morphine 10 mg/5 mL Liquid -] 20 mg PO Q4H MDD 60mg 06/14/19 Bacitracin - [Bacitracin Topical Ointment -] 1 applic TP HS tube 06/17/19 Heparin - 5,000 unit SQ TID vial 06/17/19 Lactobacillus Acidophilus [Bacid -] 1 tab PO DAILY tab 06/17/19 Lidocaine Patch Removal [Lidoderm Patch Removal] 1 each MC DAILY@2200 each 06/26 Metoprolol Succinate [Toprol XL -] 25 mg PO DAILY tab.sr.24h 06/17/19 Polyethylene Glycol 3350 [Miralax 119 gm Btl -] 17 gm PO BID bottle 06/17/19 Levofloxacin [Levaquin] 500 mg PO DAILY 7 Days #7 tablet 09/05/19 Anemia: No Asthma: No Cancer: No Cardiac Disorders: No CVA: No COPD: Yes CHF: No Dementia: No Diabetes: No GI Disorders: No Disorders: Yes (Recurrent UTI, 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) HTN: (Hypotension) Hypercholesterolemia: No Liver Disease: No Seizures: No Thyroid Disease: No - Surgical History Abdominal Surgery: No Appendectomy: No Cardiac Surgery: No Cholecystectomy: No Lung Surgery: No Neurologic Surgery: No Orthopedic Surgery: Yes (fracture right wrist s/p fusion) - Immunization History Td Vaccination: No Immunization Up to Date: No - Psycho Social/Smoking Cessation Hx Smoking Status: No Smoking History: Never smoked Years of Tobacco Use: 0 Have you smoked in the past 12 months: No Number of Cigarettes Smoked Daily: 3 If you are a former smoker, when did you quit?: 1985 Cigars Per Day: 0 Hx Alcohol Use: No Drug/Substance Use Hx: No Substance Use Type: None Hx Substance Use Treatment: No Review of Systems - Review of Systems Able to Perform ROS?: Yes Is the patient limited Thai proficient: No Constitutional: Yes: Weight Stable. No: Chills, Diaphoresis, Fever HEENTM: No: Blurred Vision, Tearing Respiratory: No: Cough, Orthopnea, Shortness of Breath, Wheezing, Productive cough Cardiac (ROS): No: Chest Pain, Palpitations, Syncope ABD/GI: No: Abdominal Distended, Constipated, Diarrhea, Nausea, Vomiting Musculoskeletal: No: Back Pain Neurological: No: Headache, Numbness All Other Systems: Reviewed and Negative *Physical Exam - Vital Signs Last Vital Signs Temp Pulse Resp BP Pulse Ox 97.3 F L 92 H 18 92/57 L 95 09/04/19 20:27 09/04/19 20:27 09/04/19 20:27 09/04/19 20:27 09/04/19 20:27 - Physical Exam General Appearance: Yes: Appropriately Dressed, Disheveled, Cachetic HEENT: positive: EOMI, FRANCIE, Normal ENT Inspection, Pharynx Normal Neck: positive: Trachea midline, Normal Thyroid, Supple Respiratory/Chest: positive: Lungs Clear, Normal Breath Sounds Cardiovascular: positive: Regular Rhythm, Regular Rate, S1, S2. negative: Murmur, Gallop/S3, Gallop/S4 Vascular Pulses: Dorsalis-Pedis (R): 2+, Doralis-Pedis (L): 2+ Gastrointestinal/Abdominal: positive: Normal Bowel Sounds, Soft, Distended ( suprapubic distention ) Musculoskeletal: negative: CVA Tenderness Neurologic: positive: Fully Oriented, Alert, Normal Mood/Affect Medical Decision Making - Medical Decision Making 64 y.o. M PMH COPD, R lung adenocarcinoma (no chemo/rads/ surgery), paraplegia 2 /2 spinal cord transection T2-T4 in 1980s, neurogenic bladder, recurrent UTIs, hypotension, recent admission at [facility] s/p left leg dital tibial fracture (d/c;d 06/18/19) presented for inability to urinate #inability to void 2/2 to neurogenic bladder and inability to self catheterize Straight cath relieved pts distention IVF given Morphine 4mg for suprapubic discomfort UA, UCx 09/04/19 21:49 09/04/19 22:20 Discharge - Discharge Information Problems reviewed: Yes Clinical Impression/Diagnosis: Neurogenic bladder, Unable to void Condition: Improved Disposition: HOME - Admission No - Additional Discharge Information Prescriptions: Levofloxacin [Levaquin] 500 mg PO DAILY 7 Days #7 tablet - Follow up/Referral Referrals: Juan Manuel Kang MD [Staff Physician] - - Patient Discharge Instructions Patient Printed Discharge Instructions: DI for Neurogenic Bladder-Adult Additional Instructions: You were seen in the emergency room due to inability to void While you were in the emergency room, we evaluated you with lab work and blood work. We treated your symptoms with straight catheterization, and your symptoms improved significantly. We also found out that you have a urinary tract infection and we started treating you with antibiotics. To treat your urinary tract infection, please take the following medication as instructed Please take Levaquin 500mg daily by mouth for 7 days Please take all your medications as prescribed Please follow up with your primary care physician in 1 week Return to the emergency room, if you experience worsening of your symptoms, nausea, vomiting, chest pain, urinary bleeding or any worsening of your condition. - Post Discharge Activity
[2019-09-04 21:58] LABS: EPI CELLS 2.2 /HPF (0-5/HPF); HYALINE CASTS 10 /lpf (0-8); URINE APPEARANCE TURBID; URINE BILIRUBIN NEGATIVE (NEGATIVE); URINE COLOR YELLOW; URINE GLUCOSE (UA) NEGATIVE (NEGATIVE); URINE KETONE NEGATIVE (NEGATIVE); URINE LEUK ESTERASE 3+ (NEGATIVE); URINE NITRITE NEGATIVE (NEGATIVE); URINE PROTEIN NEGATIVE (NEGATIVE); URINE RBC 3 /hpf (0-4); URINE UROBILINOGEN 0.2 mg/dL (0.2-1.0); URINE WBC 391 /hpf (0-5)
[2019-09-05 02:11] VITALS: BP 87/49; PULSE 79; TEMP 98
== END 2019-09-05 01:20 | disposition home or self-care (01) ==
LOC: JER 20:21
PROC: 0T9B70Z Drainage of Bladder with Drainage Device, Via Natural or Artificial Opening (ICD-10-PCS; principal; 2019-09-04)
PROC: 3E03329 Introduction of Other Anti-infective into Peripheral Vein, Percutaneous Approach (ICD-10-PCS; 2019-09-04)
PROC: 3E033NZ Introduction of Analgesics, Hypnotics, Sedatives into Peripheral Vein, Percutaneous Approach (ICD-10-PCS; 2019-09-04)
DX: N31.8 Other neuromuscular dysfunction of bladder (principal); R33.8 Other retention of urine; Z87.440 Personal history of urinary (tract) infections; C34.90 Malignant neoplasm of unspecified part of unspecified bronchus or lung; J44.9 Chronic obstructive pulmonary disease, unspecified; G82.20 Paraplegia, unspecified; Z74.01 Bed confinement status
CPT/HCPCS: 51701; 81003; 87086; 96365; 96375; 99282-25; J7030

== ENCOUNTER 2019-09-09 03:26 | Emergency (ER) | payer OTHER, BC ==
[2019-09-09 04:00] VITALS: BMI 22.8
--- NOTE | 2019-09-09 04:13 | PDOC ---
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 He was seen on 09/04/19 with the same symptoms. At that time, he was straight cathed and discharged with 7 days of levofloxacin for UTI. Mr Valenzuela states that he ran out of his antibiotics yesterday, and he has been unable to urinate since then. Per chart review, he previously reported that he had to occasionally catheterize himself at home but has since been unable to. Today, he denies that he ever needs a catheter. He currently denies any dysuria, fever, chills, or other recent symptoms but states that he believes he has a UTI due to the urinary retention. Past History - Past Medical History Allergies/Adverse Reactions: Allergies Allergy/AdvReac Type Severity Reaction Status Date / Time No Known Allergies Allergy Verified 07/20/19 10:29 Home Medications: Ambulatory Orders Diazepam [Valium] 10 mg PO TID PRN tablet MDD 30mg 06/17/18 Morphine 10 mg/5 ml Liquid [Morphine 10 mg/5 mL Liquid -] 20 mg PO Q4H MDD 60mg 06/14/19 Bacitracin - [Bacitracin Topical Ointment -] 1 applic TP HS tube 06/17/19 Heparin - 5,000 unit SQ TID vial 06/17/19 Lactobacillus Acidophilus [Bacid -] 1 tab PO DAILY tab 06/17/19 Lidocaine Patch Removal [Lidoderm Patch Removal] 1 each MC DAILY@2200 each 06/26 Metoprolol Succinate [Toprol XL -] 25 mg PO DAILY tab.sr.24h 06/17/19 Polyethylene Glycol 3350 [Miralax 119 gm Btl -] 17 gm PO BID bottle 06/17/19 Levofloxacin [Levaquin] 500 mg PO DAILY 7 Days #7 tablet 09/05/19 Anemia: No Asthma: No Cancer: No Cardiac Disorders: No CVA: No COPD: Yes CHF: No Dementia: No Diabetes: No GI Disorders: No Disorders: Yes (Recurrent UTI, 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) HTN: (Hypotension) Hypercholesterolemia: No Liver Disease: No Seizures: No Thyroid Disease: No - Surgical History Abdominal Surgery: No Appendectomy: No Cardiac Surgery: No Cholecystectomy: No Lung Surgery: No Neurologic Surgery: No Orthopedic Surgery: Yes (fracture right wrist s/p fusion) - Immunization History Td Vaccination: No Immunization Up to Date: No - Psycho Social/Smoking Cessation Hx Smoking Status: No Smoking History: Never smoked Years of Tobacco Use: 0 Have you smoked in the past 12 months: No Number of Cigarettes Smoked Daily: 3 If you are a former smoker, when did you quit?: 1985 Cigars Per Day: 0 Hx Alcohol Use: No Drug/Substance Use Hx: No Substance Use Type: None Hx Substance Use Treatment: No Review of Systems - Review of Systems Comments:: General: No fevers, no chills, no weight or appetite change, no malaise HEENT: No changes in vision, no changes in hearing, no congestion, no sore throat CV: No chest pain, no palpitations, no LE edema Pulm: No SOB, no cough, no wheezing GI: No nausea or vomiting, no change in bowel habits, no melena : NSee HPI Musc: No back pain, no joint swelling, no recent injury Skin: No rash, no lesions, no erythema Endo: No excessive thirst, no heat/cold intolerance Heme: No unusual bruising or bleeding, no swollen glands Neuro: No syncope, no numbness/tingling, no focal weakness. h/o paraplegia Vasc: No claudication Psych: No recent change in mood, no SI or HI *Physical Exam - Vital Signs Last Vital Signs Temp Pulse Resp BP Pulse Ox 97.3 F L 88 16 130/76 97 09/09/19 03:57 09/09/19 03:57 09/09/19 03:57 09/09/19 03:57 09/09/19 03:57 - Physical Exam General: Comfortable, no acute distress HEENT: Atraumatic, PERRL, EOMI, MMM, voice normal, normal neck ROM Cards: RRR, no murmur appreciated Pulm: Comfortable on room air, clear to auscultation bilaterally Abd: Soft, nontender, nondistended : Condom catheter in place w/ constant dripping urine. Clear yellow urine in bag. Ext: Atraumatic. No LE edema. BLE paralysis Vasc: Extremities WWP. Neuro: A&Ox3, CN grossly intact, normal speech. No BLE movement. 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 - Most likely urinary retention secondary to paraplegia - Discussed placement of a brambila catheter; pt immediately and repeatedly refused an indwelling catheter - Per review, recent urine culture on 09/04 was negative. Final w/ no growth - Bladder scan with approximately 750mL of urine - Will straight cath 09/09/19 06:05 - Pt catheterized, approximately 650mL urine drained - UA and culture sent - Pt continues to decline brambila catheter 09/09/19 06:27 - UA with 2+ leuk esterase, 34 WBC but only 2.6 bacteria. Pt reports colonization, should just be finishing levofloxacin prescription from visit last week - Will wait for cultures prior to sending antibiotics - Strongly encouraging urology follow up. Will give patient several [facility] urologists to contact as soon as possible. Discussed with Dr Jessie Molina PGY2 Discharge - Discharge Information Problems reviewed: Yes Clinical Impression/Diagnosis: Neurogenic bladder, Unable to void Condition: Stable Disposition: HOME - Admission No - Follow up/Referral Referrals: Juan Manuel Kang MD [Primary Care Provider] - Bill Valdez MD [Staff Physician] - Nikolas Wright MD [Staff Physician] - Víctor Herron MD [Staff Physician] - CallBack Reminder: Urine culture - Patient Discharge Instructions Patient Printed Discharge Instructions: DI for Urinary Retention in Men Additional Instructions: Discharge Instructions - You were seen for urinary retention. This is most likely due to your neurogenic bladder - Your urine analysis did not strongly suggest a urinary tract infection. You had a culture sent, and you will be contacted if it indicates you need additional antibiotics. - Please follow up with a urologist as soon as possible. You have been given contact information for several urologists at [facility]. - Seek immediate care for worsening symptoms, pain with urination, blood in your urine, or any other medical emergency. - Post Discharge Activity
--- NOTE | 2019-09-09 04:43 | PDOC ---
Attending Attestation - Resident Resident Name: JesseRebekah - ED Attending Attestation I have performed the following: I have examined & evaluated the patient, The case was reviewed & discussed with the resident, I agree w/resident's findings & plan - HPI HPI: 09/09/19 05:28 64 y.o. M PMH COPD, R lung adenocarcinoma (no chemo/rads/ surgery), paraplegia 2 /2 spinal cord transection T2-T4 in 1980s, neurogenic bladder, recurrent UTIs, hypotension, recent admission at [facility] s/p left leg dital tibial fracture (d/c;d 06/18/19) presenting with urinary retention and suprapubic discomfort. no f/c, no n/v, back pain. seen here on 09/04/19 - seen for same problem, catheterized started on levaquin, which pt states he finished, but does not add up to the number of tablets (7 days) he was rx'd. - Physicial Exam PE: 09/09/19 05:27 Agree with the resident's HPI and PE as documented in the electronic medical record. NAD, well appearing, EOMI, PERRL, nl conjunctiva, anicteric; neck supple. lungs clear, RRR, abdomen soft +suprapubic TTP. No rebound, no guarding. normal external genitalia. Back nontender. MELO x4, contracted extremities. No peripheral edema. normal color for ethnicity, WWP. paraplegic - Medical Decision Making 09/09/19 04:43 Vital Signs Temp Pulse Resp BP Pulse Ox 97.3 F L 88 16 130/76 97 09/09/19 03:57 09/09/19 03:57 09/09/19 03:57 09/09/19 03:57 09/09/19 03:57 States that normally he urinates as usual; today couldn't pass urine. seen earlier this week for similar sx, straight cath'd. VS reviewed, wnl. States that he doesnt want to have an indwelling cath. bladder scan with acute urinary retention, >700ml straight cath done; pt refuses brambila and unable to self cath. UA pt likely colonizer f/u cultures recent abx course. hold abx for now, as prior urine culture is negative pt to f/u urology, referral given, for definitive management for his periods of urinary retention likely 2/2 paraplegic status. 09/09/19 05:30 09/09/19 06:10
[2019-09-09 06:24] LABS: EPI CELLS 12.9 /HPF (0-5/HPF); HYALINE CASTS 4 /lpf (0-8); PH,URINE 6.5 (5.0-8.0); URINE APPEARANCE CLEAR; URINE BACTERIA 2.6 /hpf (NEGATIVE); URINE BILIRUBIN NEGATIVE (NEGATIVE); URINE COLOR YELLOW; URINE GLUCOSE (UA) NEGATIVE (NEGATIVE); URINE KETONE NEGATIVE (NEGATIVE); URINE LEUK ESTERASE 2+ (NEGATIVE); URINE NITRITE NEGATIVE (NEGATIVE); URINE PROTEIN NEGATIVE (NEGATIVE); URINE RBC 1 /hpf (0-4); URINE UROBILINOGEN 0.2 mg/dL (0.2-1.0); URINE WBC 34 /hpf (0-5)
[2019-09-09 09:14] VITALS: BP 113/71; PULSE 76; TEMP 98.1
== END 2019-09-09 09:47 | disposition home or self-care (01) ==
LOC: JER 03:26
PROC: 0T9B70Z Drainage of Bladder with Drainage Device, Via Natural or Artificial Opening (ICD-10-PCS; principal; 2019-09-09)
DX: R33.8 Other retention of urine (principal); N39.0 Urinary tract infection, site not specified; N31.8 Other neuromuscular dysfunction of bladder; J44.9 Chronic obstructive pulmonary disease, unspecified; C34.90 Malignant neoplasm of unspecified part of unspecified bronchus or lung; G82.20 Paraplegia, unspecified; Z88.1 Allergy status to other antibiotic agents; Z87.81 Personal history of (healed) traumatic fracture
CPT/HCPCS: 81003; 87086; 99282-25

== ENCOUNTER 2019-09-09 17:43 | Inpatient (IN) | payer OTHER, BC ==
--- NOTE | 2019-09-09 18:56 | PDOC ---
Documentation entered by Angeles Malone SCRIBE, acting as scribe for Tamica Zimmer DO. Tamica Zimmer DO: This documentation has been prepared by the Faisal maurer Joy, SCRIBE, under my direction and personally reviewed by me in its entirety. I confirm that the documentation accurately reflects all work, treatment, procedures, and medical decision making performed by me. 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 As per patient, he came in last night to the ED and was straight cathed. He states that after he went home he was unable to urinate despite being on a condom catheter. The patient endorses that he is too weak to do it himself. The patient adds that he had gatorade and water to drink today. The patient denies fever, chills, nausea, vomiting, diarrhea. Allergies: NKA PCP: Dr. Daniel Kang Past History - Past Medical History Allergies/Adverse Reactions: Allergies Allergy/AdvReac Type Severity Reaction Status Date / Time No Known Allergies Allergy Verified 07/20/19 10:29 Home Medications: Ambulatory Orders Diazepam [Valium] 10 mg PO TID PRN tablet MDD 30mg 06/17/18 Morphine 10 mg/5 ml Liquid [Morphine 10 mg/5 mL Liquid -] 20 mg PO Q4H MDD 60mg 06/14/19 Bacitracin - [Bacitracin Topical Ointment -] 1 applic TP HS tube 06/17/19 Heparin - 5,000 unit SQ TID vial 06/17/19 Lactobacillus Acidophilus [Bacid -] 1 tab PO DAILY tab 06/17/19 Lidocaine Patch Removal [Lidoderm Patch Removal] 1 each MC DAILY@2200 each 06/26 Metoprolol Succinate [Toprol XL -] 25 mg PO DAILY tab.sr.24h 06/17/19 Polyethylene Glycol 3350 [Miralax 119 gm Btl -] 17 gm PO BID bottle 06/17/19 Levofloxacin [Levaquin] 500 mg PO DAILY 7 Days #7 tablet 09/05/19 Anemia: No Asthma: No Cancer: No Cardiac Disorders: No CVA: No COPD: Yes CHF: No Dementia: No Diabetes: No GI Disorders: No Disorders: Yes (Recurrent UTI, 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) HTN: (Hypotension) Hypercholesterolemia: No Liver Disease: No Seizures: No Thyroid Disease: No - Surgical History Abdominal Surgery: No Appendectomy: No Cardiac Surgery: No Cholecystectomy: No Lung Surgery: No Neurologic Surgery: No Orthopedic Surgery: Yes (fracture right wrist s/p fusion) - Immunization History Td Vaccination: No Immunization Up to Date: No - Psycho Social/Smoking Cessation Hx Smoking Status: No Smoking History: Never smoked Years of Tobacco Use: 0 Have you smoked in the past 12 months: No Number of Cigarettes Smoked Daily: 3 If you are a former smoker, when did you quit?: 1986 Cigars Per Day: 0 Information on smoking cessation initiated: No Hx Alcohol Use: No Drug/Substance Use Hx: No Substance Use Type: None Hx Substance Use Treatment: No Review of Systems - Review of Systems Able to Perform ROS?: Yes Comments:: 09/09/19 18:27 GENERAL/CONSTITUTIONAL: +General weakness. No fever or chills. HEAD, EYES, EARS, NOSE AND THROAT: No change in vision. No ear pain or discharge. No sore throat. CARDIOVASCULAR: No chest pain or shortness of breath. RESPIRATORY: No cough, wheezing, or hemoptysis. GASTROINTESTINAL: No nausea, vomiting, diarrhea or constipation. GENITOURINARY: +Difficulty urinating. SKIN: No rash NEUROLOGIC: No headache, vertigo, loss of consciousness. ALLERGIC/IMMUNOLOGIC: No hives or skin allergy. *Physical Exam - Vital Signs Last Vital Signs Temp Pulse Resp BP Pulse Ox 98.0 F 71 16 112/69 96 09/09/19 17:45 09/09/19 17:45 09/09/19 17:45 09/09/19 17:45 09/09/19 17:45 - Physical Exam General Appearance: Yes: Nourished, Appropriately Dressed, Other (bedbound, paraplegic). No: Apparent Distress HEENT: positive: EOMI, Normal Voice Neck: positive: Supple Respiratory/Chest: positive: Lungs Clear, Normal Breath Sounds. negative: Respiratory Distress Cardiovascular: positive: Regular Rhythm, Regular Rate, S1, S2. negative: Edema Gastrointestinal/Abdominal: positive: Soft. negative: Guarding, Rebound, Tenderness Musculoskeletal: positive: Other (paraplegic from fall and hx of back fx) Extremity: positive: Normal Capillary Refill, Other (paraplegic LE, generally weak 4/5 UE) Integumentary: positive: Normal Color, Dry, Warm Neurologic: positive: Fully Oriented, Normal Mood/Affect, Normal Response, Other (at baseline MS) Heart Score/ECG Review - ECG Intrepretation Comment:: 09/09/19 19:15 sinus kajal at 55, nl axis, nl interval, baseline artifact, no acute st/t wave findings ED Treatment Course - LABORATORY CBC & Chemistry Diagram: 09/09/19 20:04 09/09/19 20:04 Medical Decision Making - Medical Decision Making 09/09/19 18:53 a/p: 64yo male with recent dx of UTI with bladder pain -pt states 3rd er visit for uti symptoms -c/o bladder pain -pt with chronic condom cath with decreased urine output -pt has required straight cath to obtain urine -pt with only 200cc in the catheter bag -will send labs, straight cath for urine -will monitor and reassess 09/09/19 20:21 pt with wbc 17 still with uti despite levaquin dosing will start rocephin pt will need admission 09/09/19 22:23 case discussed with [facility] who accepts pt to service Discharge - Discharge Information Problems reviewed: Yes Clinical Impression/Diagnosis: Leukocytosis UTI (urinary tract infection) Qualifiers: Urinary tract infection type: site unspecified Hematuria presence: without hematuria Qualified Code(s): N39.0 - Urinary tract infection, site not specified Condition: Fair - Admission Yes - Follow up/Referral Referrals: Juan Manuel Kang MD [Primary Care Provider] - - Patient Discharge Instructions - Post Discharge Activity
[2019-09-09 20:02] LABS: EPI CELLS 21.3 /HPF (0-5/HPF); HYALINE CASTS 17 /lpf (0-8); PH,URINE 6.5 (5.0-8.0); URINE APPEARANCE CLOUDY; URINE BACTERIA 3.6 /hpf (NEGATIVE); URINE BILIRUBIN NEGATIVE (NEGATIVE); URINE COLOR YELLOW; URINE GLUCOSE (UA) NEGATIVE (NEGATIVE); URINE KETONE 1+ (NEGATIVE); URINE LEUK ESTERASE 3+ (NEGATIVE); URINE NITRITE NEGATIVE (NEGATIVE); URINE PROTEIN NEGATIVE (NEGATIVE); URINE WBC 66 /hpf (0-5)
[2019-09-09 20:12] LABS: BASO % 0.3 % (0-2.0); EOS % 1.1 % (0-4.5); HEMATOCRIT 44.3 % (35.4-49); HEMOGLOBIN 14.6 GM/dL (11.7-16.9); LYMPH % 9.5 % (8-40); MCH 29.2 pg (25.7-33.7); MCHC 32.9 g/dl (32.0-35.9); MEAN CELL VOLUME 88.9 fl (80-96); MEAN PLT VOLUME 7.9 fl (7.5-11.1); MONO % 10.2 % (3.8-10.2); NEUT % 78.9 % (42.8-82.8); PLATELET COUNT 660 K/MM3 (134-434); RBC 4.98 M/mm3 (4.00-5.60); RDW 16.9 % (11.9-15.9); WHITE BLOOD COUNT 17.8 K/mm3 (4.0-10.0)
[2019-09-09] MEDS ORDERED: CEFTRIAXONE 1 GM in DEXTROSE 5%-WATER - 100 ML IVPB ONE (20:20)
[2019-09-09] MEDS ORDERED: ACETAMINOPHEN 1000 MG/100 ML VIAL (NON FORMULARY) IVPB ONE (20:20)
[2019-09-09] MEDS ORDERED: SODIUM CHLORIDE 0.9% 1000 ML INFUS.BAG IV ONE (20:20)
--- NOTE | 2019-09-09 20:27 | PN ---
Teaching Attending Note Name of Resident: Jeanne Marie ATTENDING PHYSICIAN STATEMENT I saw and evaluated the patient. I reviewed the resident's note and discussed the case with the resident. I agree with the resident's findings and plan as documented. SUBJECTIVE: Patient is a 64 year old man with a PMH of COPD, R lung adenocarcinoma (no chemo /rads/ surgery), 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 , Neurogenic bladder, Recurrent UTIs, Hypotension, Recent admission at [facility] s/p left leg distal tibial fracture (d/c;d 06/18/19) returning to the ER for inability to urinate. He presented to the ER earlier today because of urinary retention. A catheter was placed and over 600 ml of urine was obtained. He was discharged to continue on PO levaquin that he had been on for UTI. He was seen on 09/04/19 with the same symptoms. At that time, he was straight cathed and discharged with 7 days of levofloxacin for UTI. Mr Valenzuela states that he ran out of his antibiotics yesterday, and he has been unable to urinate since then. He states that after he went home he was unable to urinate despite being on a condom catheter. Says that he is too weak to do it himself. The patient adds that he had gatorade and water to drink today. The patient denies fever, chills , nausea, vomiting or diarrhea. Urine culture sent on 09/04/19 has had no growth. Denies alcohol, tobacco or illicit drug use. OBJECTIVE: Alert Vital Signs Period Temp Pulse Resp BP Sys/Roche Pulse Ox Last 24 Hr 98.0 F 71 16 112/69 96 HEENT: No Jaundice, eye redness or discharge, PERRLA, EOMI. Normocephalic, atraumatic. External ears are normal and hearing is grossly intact. No nasal discharge. Neck: Supple, nontender. No palpable adenopathy or thyromegaly. No JVD Chest: Good effort. Clear to auscultation and percussion. Heart: Regular. No S3, rub or murmur Abdomen: Not distended, soft, nontender and no HSM. No rebound or guarding. Normal bowel sounds. Ext: Peripheral pulses intact. No leg edema. Skin: Warm and dry. No petechiae, rash or ecchymosis. Neuro: Alert. Oriented x3. CN 2-12 grossly intact. Paraplegia. Psych: Appropriate mood and affect. Good insight. Home Medications Medication Instructions Recorded Diazepam [Valium] 10 mg PO TID PRN tablet MDD 30mg 06/17/18 Morphine 10 mg/5 ml Liquid 20 mg PO Q4H MDD 60mg 06/14/19 [Morphine 10 mg/5 mL Liquid -] Bacitracin - [Bacitracin Topical 1 applic TP HS tube 06/17/19 Ointment -] Heparin - 5,000 unit SQ TID vial 06/17/19 Lactobacillus Acidophilus [Bacid -] 1 tab PO DAILY tab 06/17/19 Lidocaine Patch Removal [Lidoderm 1 each MC DAILY@2200 each 06/17/19 Patch Removal] Metoprolol Succinate [Toprol XL -] 25 mg PO DAILY tab.sr.24h 06/17/19 Polyethylene Glycol 3350 [Miralax 17 gm PO BID bottle 06/17/19 119 gm Btl -] Levofloxacin [Levaquin] 500 mg PO DAILY 7 Days #7 tablet 09/05/19 Abnormal Lab Results 09/09/19 09/09/19 09/09/19 19:00 20:04 20:04 WBC 17.8 H RDW 16.9 H Plt Count 660 H Absolute Neuts (auto) 14.1 H Sodium 135 L Albumin 2.7 L Ur Specific Cameron 1.009 L Urine Ketones 1+ H Urine Blood 1+ H Ur Leukocyte Esterase 3+ H ASSESSMENT AND PLAN: 1. UTI - Based on historical urine cultures, will treat with IV meropenem pending urine culture result. EKG shows sinus bradycardia with ni significant ST -T wave changes. Encourage frequent repositioning to prevent decubitus ulcers. Consult Urology for recent increase in frequency of urinary retention. Will continue comprehensive care for all of patients comorbid conditions. 2. Hypoalbuminemia - Possibly due to combined effects of malnutrition and inflammation associated with comorbid chronic conditions. 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 3. DVT prophylaxis - Lovenox 40 mg SQ q 24 hours. 4. Advance directives - Full code
[2019-09-09] MEDS ORDERED: ACETAMINOPHEN INJECTION 100 ML IVPB ONE (20:48)
[2019-09-09 20:49] LABS: ALBUMIN 2.7 g/dl (3.4-5.0); BILIRUBIN,TOTAL 0.6 mg/dL (0.2-1); BLOOD UREA NITROGEN 7.9 mg/dL (7-18); CALCIUM 8.8 mg/dL (8.5-10.1); CREATININE 0.7 mg/dL (0.55-1.3); TOT PROT 6.7 g/dl (6.4-8.2)
[2019-09-09] MEDS ORDERED: CEFTRIAXONE 1 GM/50 ML BAG ONE (20:49)
[2019-09-09] MEDS ORDERED: morphine SULFATE 10 MG/5 ML UNIT-DOSE CUP PO ONE (21:29)
[2019-09-09] MEDS ORDERED: diazePAM 5 MG TABLET PO ONE (21:29)
[2019-09-09] MEDS ORDERED: morphine SULFATE 10 MG/5 ML UNIT-DOSE CUP ONE (21:46)
[2019-09-09] MEDS ORDERED: diazePAM 5 MG TABLET ONE (21:46)
--- NOTE | 2019-09-09 23:24 | HP ---
CHIEF COMPLAINT: urine infection PCP: Dr Kang HISTORY OF PRESENT ILLNESS: 64 year old man with a PMH of COPD, R lung adenocarcinoma (no chemo/rads/ surgery), 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 , Neurogenic bladder, Recurrent UTIs, Hypotension, Recent admission at [facility] s/p left leg distal tibial fracture (d/c'd 06/18/19) returning to the ER for inability to urinate. He presented to the ER earlier today because of urinary retention. A catheter was placed and over 600 ml of urine was obtained. He was discharged to continue on PO levaquin that he had been on for UTI. He was seen on 09/04/19 with the same symptoms. At that time, he was straight cathed and discharged with 7 days of levofloxacin for UTI. Today he is complaining of lower abdominal pain and of having a New UTI. According to pt, he took his prescribed antibiotics with one dose left.He denies any fever, chills, SOB, chest pain, hematuria at this time. Has DIRECTOR TRIAL named Friday ER course was notable for: (1)VSS, CBC with leukocytosis (chronic) 17.8 and thrombocytosis 660, CMP with hyponatremia 135 (2) UA positive , EKG NSR with kajal (3) CXR no acute pathology. Morphine, NS, Rocephin Recent Travel: none PAST MEDICAL HISTORY: as above PAST SURGICAL HISTORY: pt endorsed multiple surgeries without specifications Social History: SmokinPPD over 10-20 years but quit a long time ago Alcohol: denies Drugs: denies Allergies No Known Allergies Allergy (Verified 07/20/19 10:29) HOME MEDICATIONS: Home Medications Medication Instructions Recorded Diazepam [Valium] 10 mg PO TID PRN tablet MDD 30mg 06/17/18 Morphine 10 mg/5 ml Liquid 20 mg PO Q4H MDD 60mg 06/14/19 [Morphine 10 mg/5 mL Liquid -] Bacitracin - [Bacitracin Topical 1 applic TP HS tube 06/17/19 Ointment -] Heparin - 5,000 unit SQ TID vial 06/17/19 Lactobacillus Acidophilus [Bacid -] 1 tab PO DAILY tab 06/17/19 Lidocaine Patch Removal [Lidoderm 1 each MC DAILY@2200 each 06/17/19 Patch Removal] Metoprolol Succinate [Toprol XL -] 25 mg PO DAILY tab.sr.24h 06/17/19 Polyethylene Glycol 3350 [Miralax 17 gm PO BID bottle 06/17/19 119 gm Btl -] Levofloxacin [Levaquin] 500 mg PO DAILY 7 Days #7 tablet 09/05/19 REVIEW OF SYSTEMS CONSTITUTIONAL: generalized weakness Absent: fever, chills, diaphoresis, malaise, loss of appetite, weight change HEENT: Absent: rhinorrhea, nasal congestion, throat pain, throat swelling, difficulty swallowing, mouth swelling, ear pain, eye pain, visual changes CARDIOVASCULAR: Absent: chest pain, syncope, palpitations, irregular heart rate, lightheadedness , peripheral edema RESPIRATORY: Absent: cough, shortness of breath, dyspnea with exertion, orthopnea, wheezing, stridor, hemoptysis GASTROINTESTINAL: abdominal pain Absent: abdominal distension, nausea, vomiting, diarrhea, constipation, melena, hematochezia GENITOURINARY: Absent: dysuria, frequency, urgency, hesitancy, hematuria, flank pain, genital pain MUSCULOSKELETAL: Absent: myalgia, arthralgia, joint swelling, back pain, neck pain SKIN: Absent: rash, itching, pallor HEMATOLOGIC/IMMUNOLOGIC: Absent: easy bleeding, easy bruising, lymphadenopathy, frequent infections ENDOCRINE: Absent: unexplained weight gain, unexplained weight loss, heat intolerance, cold intolerance NEUROLOGIC: Absent: headache, focal weakness or paresthesias, dizziness, unsteady gait, seizure, mental status changes, bladder or bowel incontinence PSYCHIATRIC: Absent: anxiety, depression, suicidal or homicidal ideation, hallucinations. PHYSICAL EXAMINATION Vital Signs - 24 hr 09/09/19 17:45 Temperature 98.0 F Pulse Rate 71 Respiratory 16 Rate Blood Pressure 112/69 O2 Sat by Pulse 96 Oximetry (%) GENERAL: Awake, alert, and fully oriented, in no acute distress. HEAD: Normal with no signs of trauma. EYES: Pupils equal, round and reactive to light, extraocular movements intact, sclera anicteric, conjunctiva clear. No lid lag. EARS, NOSE, THROAT: oropharynx clear without exudates. Moist mucous membranes. NECK: Normal range of motion, supple without lymphadenopathy, JVD, or masses. LUNGS: Breath sounds equal, clear to auscultation bilaterally. No wheezes, and no crackles. No accessory muscle use. HEART: Regular rate and rhythm, normal S1 and S2 without murmur, rub or gallop. ABDOMEN: Soft, tender in lower quadrant, not distended, normoactive bowel sounds , no guarding, no rebound, no masses. No hepatomegaly or splenomegaly. MUSCULOSKELETAL: paraplegic UPPER EXTREMITIES: 2+ pulses, warm, well-perfused. No cyanosis. No clubbing. No peripheral edema. LOWER EXTREMITIES: 2+ pulses, warm, well-perfused. No calf tenderness. No peripheral edema. BLE significantly atrophied PSYCHIATRIC: Cooperative. Good eye contact. Appropriate mood and affect. SKIN: Warm, dry, normal turgor, no rashes or lesions noted, normal capillary refill. Laboratory Results - last 24 hr 09/09/19 09/09/19 09/09/19 19:00 20:04 20:04 WBC 17.8 H RBC 4.98 Hgb 14.6 Hct 44.3 MCV 88.9 MCH 29.2 MCHC 32.9 RDW 16.9 H Plt Count 660 H MPV 7.9 Absolute Neuts (auto) 14.1 H Neutrophils % 78.9 Lymphocytes % 9.5 D Monocytes % 10.2 Eosinophils % 1.1 Basophils % 0.3 Nucleated RBC % 0 Sodium 135 L Potassium 4.0 Chloride 100 Carbon Dioxide 27 Anion Gap 9 BUN 7.9 Creatinine 0.7 Est GFR (CKD-EPI)AfAm 113.98 Est GFR (CKD-EPI)NonAf 98.34 Random Glucose 93 Calcium 8.8 Total Bilirubin 0.6 AST 18 ALT 14 Alkaline Phosphatase 101 Total Protein 6.7 Albumin 2.7 L Urine Color Yellow Urine Appearance Cloudy Urine pH 6.5 Ur Specific Devers 1.009 L Urine Protein Negative Urine Glucose (UA) Negative Urine Ketones 1+ H Urine Blood 1+ H Urine Nitrite Negative Urine Bilirubin Negative Urine Urobilinogen 1.0 Ur Leukocyte Esterase 3+ H Urine WBC (Auto) 66 Urine RBC (Auto) 10-20 Urine Casts (Auto) 17 U Epithel Cells (Auto) 21.3 Urine Bacteria (Auto) 3.6 ASSESSMENT/PLAN: 64 year old man with a PMH of COPD, R lung adenocarcinoma (no chemo/rads/ surgery), 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 , Neurogenic bladder, Recurrent UTIs, Hypotension, Recent admission at [facility] s/p left leg distal tibial fracture (d/c'd 10/11/19) returning to the ER for inability to urinate and UTI despite outpatient antibiotics. UTI with failed outpatient therapy with levaquin Pt endorsed persistent lower abdominal pain urine culture sent last culture negative . previous culture from june Citrobacter Koseri , acinetobacter, staph epi, sensitive to many abx received Rocephin in the ED will continue with meropenem until culture speciation and specificity returns Urology Dr Duke consulted ID Dr Ojeda consulted [place] [facility] for urine output if fails consider brambila catheter COPD Pt currently offers no respiratory complaints monitor for now DVT lovenox daily Admit to med-surge Visit type - Emergency Visit Emergency Visit: Yes ED Registration Date: 09/09/19 Care time: The patient presented to the Emergency Department on the above date and was hospitalized for further evaluation of their emergent condition. - New Patient This patient is new to me today: No - Critical Care Critical Care patient: No ATTENDING PHYSICIAN STATEMENT I saw and evaluated the patient. I reviewed the resident's note and discussed the case with the resident. I agree with the resident's findings and plan as documented. SUBJECTIVE: OBJECTIVE: ASSESSMENT AND PLAN:
[2019-09-10 00:57] VITALS: BMI 22.8
[2019-09-10] MEDS ORDERED: ACETAMINOPHEN 325 MG TABLET (FP) PO PRN (01:01)
[2019-09-10] MEDS ORDERED: MEROPENEM 1 GM VIAL (RESTRICTED TO ID) IVPB ONE ×3 (01:39→17:06)
[2019-09-10] MEDS ORDERED: DEXTROSE 5%-WATER 100 ML IVPB ONE ×3 (01:40→17:06)
[2019-09-10] MEDS: MEROPENEM 1 GM in DEXTROSE 5%-WATER 100 ML IVPB SCH ×3 (01:58→17:23)
[2019-09-10] MEDS ORDERED: MEROPENEM 1 GM in DEXTROSE 5%-WATER 100 ML IVPB SCH (02:00)
[2019-09-10] MEDS ORDERED: morphine SULFATE 10 MG/5 ML UNIT-DOSE CUP PO SCH (02:15)
[2019-09-10] MEDS: morphine SULFATE 10 MG/5 ML UNIT-DOSE CUP PO PRN ×4 (02:50→23:05)
[2019-09-10 07:42] LABS: BASO % 0.3 % (0-2.0); EOS % 2.3 % (0-4.5); HEMATOCRIT 43.5 % (35.4-49); HEMOGLOBIN 14.2 GM/dL (11.7-16.9); LYMPH % 15.2 % (8-40); MCH 29.4 pg (25.7-33.7); MCHC 32.7 g/dl (32.0-35.9); MEAN PLT VOLUME 8.9 fl (7.5-11.1); MONO % 9.3 % (3.8-10.2); NEUT % 72.9 % (42.8-82.8); PLATELET COUNT 553 K/MM3 (134-434); RBC 4.83 M/mm3 (4.00-5.60); RDW 16.9 % (11.9-15.9); WHITE BLOOD COUNT 12.2 K/mm3 (4.0-10.0)
[2019-09-10 08:18] LABS: ALBUMIN 2.4 g/dl (3.4-5.0); BILIRUBIN,TOTAL 0.5 mg/dL (0.2-1); BLOOD UREA NITROGEN 6.4 mg/dL (7-18); CALCIUM 8.5 mg/dL (8.5-10.1); CREATININE 0.6 mg/dL (0.55-1.3); MAGNESIUM 1.9 mg/dL (1.8-2.4); PHOSPHOROUS 2.4 mg/dL (2.5-4.9); POTASSIUM 3.5 mmol/L (3.5-5.1); TOT PROT 6.6 g/dl (6.4-8.2)
[2019-09-10] MEDS: DOCUSATE SODIUM 100 MG CAPSULE (FP) PO PRN ×2 (09:20→23:49)
[2019-09-10] MEDS: ENOXAPARIN NA (PORCINE) 40 MG/0.4 ML DISP.SYRIN SQ SCH (09:20)
[2019-09-10] MEDS: NAPH,MB-DB/K PH,MBDB POWDER PACKET PO SCH ×2 (10:36→21:09)
--- NOTE | 2019-09-10 10:51 | CON.ID ---
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 As per patient, he came in last night to the ED and was straight cathed. He states that after he went home he was unable to urinate despite being on a condom catheter. The patient endorses that he is too weak to do it himself. 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: Other (paraplegia due to accidental fall (T2 spinal fracture)) Gastrointestinal: Yes: Other (Hepatic hemangiomas) Renal/: Yes: Other (Bladder dysfunction) Infectious Disease: Yes: Other (multiple UTIs Pseudomonas) Musculoskeletal: Yes: Paraplegia, Other (Chronic pain) - Past Surgical History Past Surgical History: Yes: Splenectomy - Alcohol/Substance Use Hx Alcohol Use: No History of Substance Use: reports: Marijuana - Smoking History Smoking history: Never smoked Have you smoked in the past 12 months: No Aproximately how many cigarettes per day: 3 If you are a former smoker, when did you quit?: 1985 - Social History Usual Living Arrangement: With Significant Other 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 ([facility] (24hr)) History of Recent Travel: No Home Medications - Allergies Allergies/Adverse Reactions: Allergies Allergy/AdvReac Type Severity Reaction Status Date / Time No Known Allergies Allergy Verified 07/20/19 10:29 - Home Medications Home Medications: Ambulatory Orders Diazepam [Valium] 10 mg PO TID PRN tablet MDD 30mg 06/17/18 Morphine 10 mg/5 ml Liquid [Morphine 10 mg/5 mL Liquid -] 20 mg PO Q4H MDD 60mg 06/14/19 Bacitracin - [Bacitracin Topical Ointment -] 1 applic TP HS tube 06/17/19 Heparin - 5,000 unit SQ TID vial 06/17/19 Lactobacillus Acidophilus [Bacid -] 1 tab PO DAILY tab 06/17/19 Lidocaine Patch Removal [Lidoderm Patch Removal] 1 each MC DAILY@2200 each 06/26 Metoprolol Succinate [Toprol XL -] 25 mg PO DAILY tab.sr.24h 06/17/19 Polyethylene Glycol 3350 [Miralax 119 gm Btl -] 17 gm PO BID bottle 06/17/19 Levofloxacin [Levaquin] 500 mg PO DAILY 7 Days #7 tablet 09/05/19 Review of Systems - Review of Systems Constitutional: reports: No Symptoms Eyes: reports: No Symptoms HENT: reports: No Symptoms Neck: reports: No Symptoms Cardiovascular: reports: No Symptoms Respiratory: reports: No Symptoms Gastrointestinal: reports: Abdominal Pain Genitourinary: reports: Hematuria, Pain Musculoskeletal: reports: No Symptoms Integumentary: reports: No Symptoms Neurological: reports: No Symptoms Endocrine: reports: No Symptoms Hematology/Lymphatic: reports: No Symptoms Psychiatric: reports: No Symptoms Physical Exam Vital Signs: Vital Signs Temperature 97.5 F L 09/10/19 05:45 Pulse Rate 53 L 09/10/19 05:45 Respiratory Rate 18 09/10/19 05:45 Blood Pressure 128/59 L 09/10/19 05:45 O2 Sat by Pulse Oximetry (%) 96 09/09/19 17:45 Constitutional: Yes: Well Nourished, No Distress, Calm Cardiovascular: Yes: Regular Rate and Rhythm Respiratory: Yes: Regular, CTA Bilaterally Gastrointestinal: Yes: Normal Bowel Sounds, Soft Renal/: Yes: Sharp Present, Other (hematuria) Musculoskeletal: Yes: WNL Extremities: Yes: WNL Neurological: Yes: Alert, Oriented Psychiatric: Yes: Alert, Oriented Labs: CBC, BMP 09/10/19 07:06 09/10/19 07:06 Imaging - Results Chest X-ray: Report Reviewed, Image Reviewed Assessment/Plan 64 year old man with a PMH of COPD, R lung adenocarcinoma (no chemo/rads/ surgery), 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 , Neurogenic bladder, Recurrent UTIs, Hypotension, uti hematuria paraplegia plan will continue meropenam await for cx reports rest as per the team
--- NOTE | 2019-09-10 13:22 | EKG ---
Test Reason : Blood Pressure : / mmHG Vent. Rate : 055 BPM Atrial Rate : 055 BPM P-R Int : 146 ms QRS Dur : 070 ms QT Int : 450 ms P-R-T Axes : 071 071 078 degrees QTc Int : 430 ms SINUS BRADYCARDIA OTHERWISE NORMAL ECG WHEN COMPARED WITH ECG OF 22-JUN-2019 16:55, NO SIGNIFICANT CHANGE WAS FOUND Confirmed by ROCIO NI MD ([id number]) on 09/10/2019 1:22:05 PM Referred By: Confirmed By:ROCIO NI MD
--- NOTE | 2019-09-10 17:12 | PN ---
Teaching Attending Note Name of Resident: Jessie Moses ATTENDING PHYSICIAN STATEMENT I saw and evaluated the patient. I reviewed the resident's note and discussed the case with the resident. I agree with the resident's findings and plan as documented. SUBJECTIVE: Feeling well. No complaints. No fever/chills/nausea/vomiting/ abdominal pain. OBJECTIVE: Afebrile, hemodynamically Stable Last Vital Signs Temp Pulse Resp BP Pulse Ox 97.7 F 98 H 20 108/71 94 L 09/10/19 14:30 09/10/19 14:30 09/10/19 14:30 09/10/19 14:30 09/10/19 09:00 HEENT - Atraumatic, normocephalic. Heart - S1, S2, RRR Lungs - clear to auscultation Abdomen -Soft, non-tender. Bowel Sounds normal. Extremities - no edema, no calf tenderness. Wasting, contractures. - Sharp in situ, draining blood tinged urine. Neuro - AAO x 3. Reduced power LEs. Laboratory Results - last 24 hr 09/09/19 09/09/19 09/09/19 19:00 20:04 20:04 WBC 17.8 H RBC 4.98 Hgb 14.6 Hct 44.3 MCV 88.9 MCH 29.2 MCHC 32.9 RDW 16.9 H Plt Count 660 H MPV 7.9 Absolute Neuts (auto) 14.1 H Neutrophils % 78.9 Lymphocytes % 9.5 D Monocytes % 10.2 Eosinophils % 1.1 Basophils % 0.3 Nucleated RBC % 0 Sodium 135 L Potassium 4.0 Chloride 100 Carbon Dioxide 27 Anion Gap 9 BUN 7.9 Creatinine 0.7 Est GFR (CKD-EPI)AfAm 113.98 Est GFR (CKD-EPI)NonAf 98.34 Random Glucose 93 Calcium 8.8 Phosphorus Magnesium Total Bilirubin 0.6 AST 18 ALT 14 Alkaline Phosphatase 101 Total Protein 6.7 Albumin 2.7 L Urine Color Yellow Urine Appearance Cloudy Urine pH 6.5 Ur Specific [place] 1.009 L Urine Protein Negative Urine Glucose (UA) Negative Urine Ketones 1+ H Urine Blood 1+ H Urine Nitrite Negative Urine Bilirubin Negative Urine Urobilinogen 1.0 Ur Leukocyte Esterase 3+ H Urine WBC (Auto) 66 Urine RBC (Auto) 10-20 Urine Casts (Auto) 17 U Epithel Cells (Auto) 21.3 Urine Bacteria (Auto) 3.6 09/10/19 09/10/19 07:06 07:06 WBC 12.2 H RBC 4.83 Hgb 14.2 Hct 43.5 MCV 90.0 MCH 29.4 MCHC 32.7 RDW 16.9 H Plt Count 553 H MPV 8.9 D Absolute Neuts (auto) 8.9 H Neutrophils % 72.9 Lymphocytes % 15.2 D Monocytes % 9.3 Eosinophils % 2.3 D Basophils % 0.3 Nucleated RBC % 0 Sodium 138 Potassium 3.5 Chloride 104 Carbon Dioxide 25 Anion Gap 10 BUN 6.4 L Creatinine 0.6 Est GFR (CKD-EPI)AfAm 121.43 Est GFR (CKD-EPI)NonAf 104.77 Random Glucose 77 Calcium 8.5 Phosphorus 2.4 L Magnesium 1.9 Total Bilirubin 0.5 AST 15 ALT 14 Alkaline Phosphatase 99 Total Protein 6.6 Albumin 2.4 L Urine Color Urine Appearance Urine pH Ur Specific [place] Urine Protein Urine Glucose (UA) Urine Ketones Urine Blood Urine Nitrite Urine Bilirubin Urine Urobilinogen Ur Leukocyte Esterase Urine WBC (Auto) Urine RBC (Auto) Urine Casts (Auto) U Epithel Cells (Auto) Urine Bacteria (Auto) Current Medications Generic Name Dose Route Start Last Admin Trade Name Freq PRN Reason Stop Dose Admin Acetaminophen 650 mg 09/10/19 01:01 Tylenol - PO Q4H PRN PAIN LEVEL 6-10 Docusate Sodium 100 mg 09/10/19 01:01 09/10/19 09:20 Colace - PO 100 mg BID PRN Administration CONSTIPATION Enoxaparin Sodium 40 mg 09/10/19 10:00 09/10/19 09:20 Lovenox - SQ 40 mg DAILY ZAIRA Administration Meropenem 1 gm/ Dextrose 100 mls @ 200 mls/hr 09/10/19 18:00 IVPB Q8H-IV ZAIRA Morphine Sulfate 20 mg 09/10/19 02:37 09/10/19 09:27 Morphine 10 Mg/5 Ml Liquid PO 20 mg Q4H PRN Administration PAIN LEVEL 6-10 Potassium Phos/Sodium Phos 1 packet 09/10/19 10:00 09/10/19 10:36 Phos-Nak Packet - PO 09/10/19 22:01 1 packet BID ZAIRA Administration Senna 2 tab 09/10/19 01:01 Senna - PO HS PRN CONSTIPATION Home Medications Medication Instructions Recorded Diazepam [Valium] 10 mg PO TID PRN tablet MDD 30mg 06/17/18 Morphine 10 mg/5 ml Liquid 20 mg PO Q4H MDD 60mg 06/14/19 [Morphine 10 mg/5 mL Liquid -] ASSESSMENT AND PLAN: 64 year old male with history of COPD, R lung Adenocarcinoma (no CTx/RTx/Surgery ), 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 He recently completed a 7 day course of Levofloxacin for UTI. 1. UTI associated with neurogenic bladder and self catheterization Urine Cx pending. Leukocytosis resolving. Continue IV Meropenem ID and Urology consulted. 2. RUL Adenocarcinoma, not on treatment - for out-patient Oncology follow up. 3. COPD - stable. No evidence of decompensation. DVT Px - Lovenox SQ
--- NOTE | 2019-09-10 17:49 | PN ---
Physical Exam: SUBJECTIVE: Patient seen and examined. Brambila inserted overnight due to urinary retention. Denies chest pain, abd pain, SOB, chills. Complains that brambila is uncomfortable. OBJECTIVE: Vital Signs Period Temp Pulse Resp BP Sys/Roche Pulse Ox Last 24 Hr 97.5 F-97.8 F 50-98 16-20 98-128/46-74 94 GENERAL: The patient is awake, alert, and fully oriented, in no acute distress. HEAD: Normal with no signs of trauma. EYES: EOMI, no scleral icterus ENT: MMM NECK: Trachea midline, full range of motion, supple. LUNGS: Breath sounds equal, clear to auscultation bilaterally, no wheezes, no crackles, no accessory muscle use. HEART: Regular rate and rhythm, S1, S2 without murmur, rub or gallop. ABDOMEN: Soft, nondistended, normoactive bowel sounds, no guarding, no rebound, no hepatosplenomegaly, no masses. Mild superpubic tenderness to palpation. : brambila in place. EXTREMITIES: 2+ pulses, warm, well-perfused. Right wrist fused. NEUROLOGICAL: Normal speech, gait not observed. PSYCH: Normal mood, normal affect. SKIN: Warm, dry, normal turgor, no rashes or lesions noted Laboratory Results - last 24 hr 09/09/19 09/09/19 09/09/19 19:00 20:04 20:04 WBC 17.8 H RBC 4.98 Hgb 14.6 Hct 44.3 MCV 88.9 MCH 29.2 MCHC 32.9 RDW 16.9 H Plt Count 660 H MPV 7.9 Absolute Neuts (auto) 14.1 H Neutrophils % 78.9 Lymphocytes % 9.5 D Monocytes % 10.2 Eosinophils % 1.1 Basophils % 0.3 Nucleated RBC % 0 Sodium 135 L Potassium 4.0 Chloride 100 Carbon Dioxide 27 Anion Gap 9 BUN 7.9 Creatinine 0.7 Est GFR (CKD-EPI)AfAm 113.98 Est GFR (CKD-EPI)NonAf 98.34 Random Glucose 93 Calcium 8.8 Phosphorus Magnesium Total Bilirubin 0.6 AST 18 ALT 14 Alkaline Phosphatase 101 Total Protein 6.7 Albumin 2.7 L Urine Color Yellow Urine Appearance Cloudy Urine pH 6.5 Ur Specific [place] 1.009 L Urine Protein Negative Urine Glucose (UA) Negative Urine Ketones 1+ H Urine Blood 1+ H Urine Nitrite Negative Urine Bilirubin Negative Urine Urobilinogen 1.0 Ur Leukocyte Esterase 3+ H Urine WBC (Auto) 66 Urine RBC (Auto) 10-20 Urine Casts (Auto) 17 U Epithel Cells (Auto) 21.3 Urine Bacteria (Auto) 3.6 09/10/19 09/10/19 07:06 07:06 WBC 12.2 H RBC 4.83 Hgb 14.2 Hct 43.5 MCV 90.0 MCH 29.4 MCHC 32.7 RDW 16.9 H Plt Count 553 H MPV 8.9 D Absolute Neuts (auto) 8.9 H Neutrophils % 72.9 Lymphocytes % 15.2 D Monocytes % 9.3 Eosinophils % 2.3 D Basophils % 0.3 Nucleated RBC % 0 Sodium 138 Potassium 3.5 Chloride 104 Carbon Dioxide 25 Anion Gap 10 BUN 6.4 L Creatinine 0.6 Est GFR (CKD-EPI)AfAm 121.43 Est GFR (CKD-EPI)NonAf 104.77 Random Glucose 77 Calcium 8.5 Phosphorus 2.4 L Magnesium 1.9 Total Bilirubin 0.5 AST 15 ALT 14 Alkaline Phosphatase 99 Total Protein 6.6 Albumin 2.4 L Urine Color Urine Appearance Urine pH Ur Specific [place] Urine Protein Urine Glucose (UA) Urine Ketones Urine Blood Urine Nitrite Urine Bilirubin Urine Urobilinogen Ur Leukocyte Esterase Urine WBC (Auto) Urine RBC (Auto) Urine Casts (Auto) U Epithel Cells (Auto) Urine Bacteria (Auto) Active Medications Generic Name Dose Route Start Last Admin Trade Name Freq PRN Reason Stop Dose Admin Acetaminophen 650 mg 09/10/19 01:01 Tylenol - PO Q4H PRN PAIN LEVEL 6-10 Docusate Sodium 100 mg 09/10/19 01:01 09/10/19 09:20 Colace - PO 100 mg BID PRN Administration CONSTIPATION Enoxaparin Sodium 40 mg 09/10/19 10:00 09/10/19 09:20 Lovenox - SQ 40 mg DAILY ZAIRA Administration Meropenem 1 gm/ Dextrose 100 mls @ 200 mls/hr 09/10/19 18:00 09/10/19 17:23 IVPB 200 mls/hr Q8H-IV ZAIRA Administration Morphine Sulfate 20 mg 09/10/19 02:37 09/10/19 09:27 Morphine 10 Mg/5 Ml Liquid PO 20 mg Q4H PRN Administration PAIN LEVEL 6-10 Potassium Phos/Sodium Phos 1 packet 09/10/19 10:00 09/10/19 10:36 Phos-Nak Packet - PO 09/10/19 22:01 1 packet BID ZAIRA Administration Senna 2 tab 09/10/19 01:01 Senna - PO HS PRN CONSTIPATION ASSESSMENT/PLAN: 64 y/o/m with a PMHx of COPD, R lung adenocarcinoma (no chemo/rads/ surgery), 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 #UTI s/p failed outpatient abx with Levaquin - UA positive for UTI - patient with hx of self catheterizations, neurogenic bladder - received Rocephin in the ED - Continue Meropenum, follow urine cx results - Urology consulted, Dr. Duke - ID consulted, Dr. Salazar - brambila catheter in place - Leukocytosis resolving, continue to monitor #COPD - no signs of current exacerbation - not on any COPD medications at home - monitor #RUL adenocarcinoma - Out-patient hematology/oncology follow up recommended #Prophylaxis - Lovenox #FEN - Regular diet - monitor and replete lytes as needed #Disposition - pending urine cx, will adjust abx appropriately Visit type - Emergency Visit Emergency Visit: Yes ED Registration Date: 09/09/19 Care time: The patient presented to the Emergency Department on the above date and was hospitalized for further evaluation of their emergent condition. - New Patient This patient is new to me today: No - Critical Care Critical Care patient: No ATTENDING PHYSICIAN STATEMENT I saw and evaluated the patient. I reviewed the resident's note and discussed the case with the resident. I agree with the resident's findings and plan as documented. SUBJECTIVE: OBJECTIVE: ASSESSMENT AND PLAN:
[2019-09-10] MEDS: SENNOSIDES 8.6MG TABLET (FP) PO PRN (23:49)
[2019-09-11] MEDS ORDERED: MEROPENEM 1 GM VIAL (RESTRICTED TO ID) IVPB ONE ×2 (01:10→10:10)
[2019-09-11] MEDS ORDERED: DEXTROSE 5%-WATER 100 ML IVPB ONE ×2 (01:11→10:11)
[2019-09-11] MEDS: MEROPENEM 1 GM in DEXTROSE 5%-WATER 100 ML IVPB SCH ×2 (01:28→10:12)
[2019-09-11 07:20] LABS: BASO % 0.3 % (0-2.0); EOS % 2.6 % (0-4.5); HEMATOCRIT 42.2 % (35.4-49); HEMOGLOBIN 13.8 GM/dL (11.7-16.9); LYMPH % 12.5 % (8-40); MCH 29.5 pg (25.7-33.7); MCHC 32.7 g/dl (32.0-35.9); MEAN CELL VOLUME 90.2 fl (80-96); MONO % 11.5 % (3.8-10.2); NEUT % 73.1 % (42.8-82.8); PLATELET COUNT 559 K/MM3 (134-434); RBC 4.68 M/mm3 (4.00-5.60); RDW 16.9 % (11.9-15.9); WHITE BLOOD COUNT 13.6 K/mm3 (4.0-10.0)
[2019-09-11 07:47] LABS: ALBUMIN 2.3 g/dl (3.4-5.0); BILIRUBIN,TOTAL 0.5 mg/dL (0.2-1); BLOOD UREA NITROGEN 5.7 mg/dL (7-18); CALCIUM 8.3 mg/dL (8.5-10.1); CREATININE 0.5 mg/dL (0.55-1.3); POTASSIUM 3.6 mmol/L (3.5-5.1)
--- NOTE | 2019-09-11 08:09 | PN ---
Physical Exam: SUBJECTIVE: Patient seen and examined at bedside. Denies acute complaints. Denies subjective fevers, chills, shortness of breath, chest pain, palpitations , abdominal pain, nausea, vomiting. OBJECTIVE: Vital Signs Period Temp Pulse Resp BP Sys/Roche Pulse Ox Last 24 Hr 97.6 F-98.6 F 82-106 18-20 101-132/57-85 94-97 GENERAL: The patient is awake, alert, and fully oriented, in no acute distress. HEAD: Normal with no signs of trauma. EYES: PERRL, extraocular movements intact, sclera anicteric, conjunctiva clear. No ptosis. ENT: Oropharynx clear without exudates, moist mucous membranes. NECK: Trachea midline, full range of motion, supple. LUNGS: Breath sounds equal, clear to auscultation bilaterally, no wheezes, no crackles, no accessory muscle use. HEART: Regular rate and rhythm, S1, S2 without murmur, rub or gallop. ABDOMEN: Soft, nontender, nondistended, normoactive bowel sounds, no guarding, no rebound, no hepatosplenomegaly, no masses. GENITOURINAR- Sharp catheter in situ. EXTREMITIES: 2+ pulses, warm, well-perfused, no edema. NEUROLOGICAL: Cranial nerves II through XII grossly intact. Normal speech, gait not observed. PSYCH: Normal mood, normal affect. SKIN: Warm, dry, normal turgor, no rashes or lesions noted Laboratory Results - last 24 hr 09/10/19 09/10/19 09/11/19 07:06 07:06 06:22 WBC 12.2 H 13.6 H RBC 4.83 4.68 Hgb 14.2 13.8 Hct 43.5 42.2 MCV 90.0 90.2 MCH 29.4 29.5 MCHC 32.7 32.7 RDW 16.9 H 16.9 H Plt Count 553 H 559 H MPV 8.9 D 9.0 Absolute Neuts (auto) 8.9 H 9.9 H Neutrophils % 72.9 73.1 Lymphocytes % 15.2 D 12.5 Monocytes % 9.3 11.5 H Eosinophils % 2.3 D 2.6 Basophils % 0.3 0.3 Nucleated RBC % 0 0 Sodium 138 Potassium 3.5 Chloride 104 Carbon Dioxide 25 Anion Gap 10 BUN 6.4 L Creatinine 0.6 Est GFR (CKD-EPI)AfAm 121.43 Est GFR (CKD-EPI)NonAf 104.77 Random Glucose 77 Calcium 8.5 Phosphorus 2.4 L Magnesium 1.9 Total Bilirubin 0.5 AST 15 ALT 14 Alkaline Phosphatase 99 Total Protein 6.6 Albumin 2.4 L 09/11/19 06:22 WBC RBC Hgb Hct MCV MCH MCHC RDW Plt Count MPV Absolute Neuts (auto) Neutrophils % Lymphocytes % Monocytes % Eosinophils % Basophils % Nucleated RBC % Sodium 132 L Potassium 3.6 Chloride 96 L Carbon Dioxide 27 Anion Gap 9 BUN 5.7 L Creatinine 0.5 L Est GFR (CKD-EPI)AfAm 130.88 Est GFR (CKD-EPI)NonAf 112.92 Random Glucose 82 Calcium 8.3 L Phosphorus Magnesium Total Bilirubin 0.5 AST 14 L ALT 12 L Alkaline Phosphatase 92 Total Protein 6.0 L Albumin 2.3 L Active Medications Generic Name Dose Route Start Last Admin Trade Name Freq PRN Reason Stop Dose Admin Acetaminophen 650 mg 09/10/19 01:01 Tylenol - PO Q4H PRN PAIN LEVEL 6-10 Docusate Sodium 100 mg 09/10/19 01:01 09/10/19 23:49 Colace - PO 100 mg BID PRN Administration CONSTIPATION Enoxaparin Sodium 40 mg 09/10/19 10:00 09/10/19 09:20 Lovenox - SQ 40 mg DAILY ZAIRA Administration Meropenem 1 gm/ Dextrose 100 mls @ 200 mls/hr 09/10/19 18:00 09/11/19 01:28 IVPB 200 mls/hr Q8H-IV ZAIRA Administration Morphine Sulfate 20 mg 09/10/19 02:37 09/10/19 23:05 Morphine 10 Mg/5 Ml Liquid PO 20 mg Q4H PRN Administration PAIN LEVEL 6-10 Senna 2 tab 09/10/19 01:01 09/10/19 23:49 Senna - PO 2 tab HS PRN Administration CONSTIPATION ASSESSMENT/PLAN: 64 y/o/m with a PMHx of COPD, Right lung adenocarcinoma (no chemo/rads/ surgery) , paraplegia secondary to spinal cord transection (T2-T4 in ), neurogenic bladder, recurrent UTIs, hypotension, Recent admission at [facility] s/p left leg distal tibial fracture (d/c'd 06/18/19) returning to the ER for inability to urinate and UTI failing outpatient antibiotic trial. UTI s/p failed outpatient antibiotic therapy with Levaquin - UA positive for UTI. Cultures negative for growth WBC increased to 13.8, however patient remains afebrile. - Patient with hx of self catheterizations, neurogenic bladder - Meropenum discontinued. ID recommendations appreciated (Dr. Porter). - Urology consulted, Dr. Duke. Sharp catheter in place COPD - Current not in exacerbation - Not on any COPD medications at home - DuoNebs PRN Adenocarcinoma right upper lung lobe - Out-patient hematology/oncology follow up recommended FEN - No IV fluids indicated. - monitor and replete lytes as needed - Regular diet Prophylaxis - Lovenox 40mg subq daiily Disposition - Continue care in medical surgical floor. An Visit type - Emergency Visit Emergency Visit: Yes ED Registration Date: 09/09/19 Care time: The patient presented to the Emergency Department on the above date and was hospitalized for further evaluation of their emergent condition. - New Patient This patient is new to me today: Yes Date on this admission: 09/11/19 - Critical Care Critical Care patient: No - Discharge Referral Referred to [facility] Med P.C.: No ATTENDING PHYSICIAN STATEMENT I saw and evaluated the patient. I reviewed the resident's note and discussed the case with the resident. I agree with the resident's findings and plan as documented. SUBJECTIVE: OBJECTIVE: ASSESSMENT AND PLAN:
[2019-09-11] MEDS: ENOXAPARIN NA (PORCINE) 40 MG/0.4 ML DISP.SYRIN SQ SCH (10:12)
[2019-09-11] MEDS: morphine SULFATE 10 MG/5 ML UNIT-DOSE CUP PO PRN ×2 (10:35→22:25)
--- NOTE | 2019-09-11 12:22 | PN ---
Teaching Attending Note Name of Resident: Abdirizak White ATTENDING PHYSICIAN STATEMENT I saw and evaluated the patient. I reviewed the resident's note and discussed the case with the resident. I agree with the resident's findings and plan as documented. SUBJECTIVE: Feeling well. No complaints. No fever/chills/nausea/vomiting/ abdominal pain. OBJECTIVE: Afebrile, Hemodynamically Stable Last Vital Signs Temp Pulse Resp BP Pulse Ox 98.6 F 102 H 18 132/57 L 97 09/11/19 06:26 09/11/19 06:26 09/11/19 08:25 09/11/19 06:26 09/11/19 08:25 Heart - S1, S2, RRR Lungs - clear to auscultation Abdomen -Soft, non-tender. Bowel Sounds normal. Extremities - no edema, no calf tenderness. Wasting, contractures LEs. - Sharp in situ, draining mild blood tinged urine. Neuro - AAO x 3. Reduced power LEs. Laboratory Results - last 24 hr 09/11/19 09/11/19 06:22 06:22 WBC 13.6 H RBC 4.68 Hgb 13.8 Hct 42.2 MCV 90.2 MCH 29.5 MCHC 32.7 RDW 16.9 H Plt Count 559 H MPV 9.0 Absolute Neuts (auto) 9.9 H Neutrophils % 73.1 Lymphocytes % 12.5 Monocytes % 11.5 H Eosinophils % 2.6 Basophils % 0.3 Nucleated RBC % 0 Sodium 132 L Potassium 3.6 Chloride 96 L Carbon Dioxide 27 Anion Gap 9 BUN 5.7 L Creatinine 0.5 L Est GFR (CKD-EPI)AfAm 130.88 Est GFR (CKD-EPI)NonAf 112.92 Random Glucose 82 Calcium 8.3 L Total Bilirubin 0.5 AST 14 L ALT 12 L Alkaline Phosphatase 92 Total Protein 6.0 L Albumin 2.3 L Current Medications Generic Name Dose Route Start Last Admin Trade Name Freq PRN Reason Stop Dose Admin Acetaminophen 650 mg 09/10/19 01:01 Tylenol - PO Q4H PRN PAIN LEVEL 6-10 Docusate Sodium 100 mg 09/10/19 01:01 09/10/19 23:49 Colace - PO 100 mg BID PRN Administration CONSTIPATION Enoxaparin Sodium 40 mg 09/10/19 10:00 09/11/19 10:12 Lovenox - SQ 40 mg DAILY ZAIRA Administration Meropenem 1 gm/ Dextrose 100 mls @ 200 mls/hr 09/10/19 18:00 09/11/19 10:12 IVPB 200 mls/hr Q8H-IV ZAIRA Administration Morphine Sulfate 20 mg 09/10/19 02:37 09/11/19 10:35 Morphine 10 Mg/5 Ml Liquid PO 20 mg Q4H PRN Administration PAIN LEVEL 6-10 Senna 2 tab 09/10/19 01:01 09/10/19 23:49 Senna - PO 2 tab HS PRN Administration CONSTIPATION Home Medications Medication Instructions Recorded Diazepam [Valium] 10 mg PO TID PRN tablet MDD 30mg 06/17/18 Morphine 10 mg/5 ml Liquid 20 mg PO Q4H MDD 60mg 06/14/19 [Morphine 10 mg/5 mL Liquid -] ASSESSMENT AND PLAN: 64 year old male with history of COPD, R lung Adenocarcinoma (no CTx/RTx/Surgery ), 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 He recently completed a 7 day course of Levofloxacin for UTI. 1. Recent UTI associated with neurogenic bladder and self catheterization Urine Cx negative s/p course of Levofloxacin On IV Meropenem - further abx titration as per ID. Can likely switch to oral or discontinue altogether pending ID eval. ID following. Urology consulted- discussed with Dr. Montenegro who declines in-patient eval in favor of outpatient Urology follow up. 2. RUL Adenocarcinoma, not on treatment - for out-patient Oncology follow up. 3. COPD - stable. No evidence of decompensation. Medically optimized for discharge once final ID recommendations are made, with Sharp in-situ and urology follow up next week.
--- NOTE | 2019-09-11 14:40 | PN ---
Progress Note, Physician History of Present Illness: Pt is alert. States he felt much better this am but recently doesn't feel well in general. Brambila in place, has blood-tinged urine. Remains afebrile, vitals stable. - Current Medication List Current Medications: Active Medications Acetaminophen (Tylenol -) 650 mg PO Q4H PRN PRN Reason: PAIN LEVEL 6-10 Docusate Sodium (Colace -) 100 mg PO BID PRN PRN Reason: CONSTIPATION Last Admin: 09/10/19 23:49 Dose: 100 mg Enoxaparin Sodium (Lovenox -) 40 mg SQ DAILY ZAIRA Last Admin: 09/11/19 10:12 Dose: 40 mg Meropenem 1 gm/ Dextrose 100 mls @ 200 mls/hr IVPB Q8H-IV ZAIRA Last Admin: 09/11/19 10:12 Dose: 200 mls/hr Morphine Sulfate (Morphine 10 Mg/5 Ml Liquid) 20 mg PO Q4H PRN PRN Reason: PAIN LEVEL 6-10 Last Admin: 09/11/19 10:35 Dose: 20 mg Senna (Senna -) 2 tab PO HS PRN PRN Reason: CONSTIPATION Last Admin: 09/10/19 23:49 Dose: 2 tab - Objective Vital Signs: Vital Signs Temperature 98.6 F 09/11/19 06:26 Pulse Rate 102 H 09/11/19 06:26 Respiratory Rate 18 09/11/19 08:25 Blood Pressure 132/57 L 09/11/19 06:26 O2 Sat by Pulse Oximetry (%) 97 09/11/19 08:25 Constitutional: Yes: No Distress Neck: Yes: Supple Cardiovascular: Yes: Regular Rate and Rhythm Respiratory: Yes: Regular Gastrointestinal: Yes: Normal Bowel Sounds, Soft Genitourinary: Yes: Brambila Present, Hematuria Musculoskeletal: Yes: Other (paraplegia) Edema: No Integumentary: Yes: WNL Neurological: Yes: Alert Labs: CBC, BMP 09/11/19 06:22 09/11/19 06:22 Laboratory Results - last 24 hr 09/11/19 09/11/19 06:22 06:22 WBC 13.6 H RBC 4.68 Hgb 13.8 Hct 42.2 MCV 90.2 MCH 29.5 MCHC 32.7 RDW 16.9 H Plt Count 559 H MPV 9.0 Absolute Neuts (auto) 9.9 H Neutrophils % 73.1 Lymphocytes % 12.5 Monocytes % 11.5 H Eosinophils % 2.6 Basophils % 0.3 Nucleated RBC % 0 Sodium 132 L Potassium 3.6 Chloride 96 L Carbon Dioxide 27 Anion Gap 9 BUN 5.7 L Creatinine 0.5 L Est GFR (CKD-EPI)AfAm 130.88 Est GFR (CKD-EPI)NonAf 112.92 Random Glucose 82 Calcium 8.3 L Total Bilirubin 0.5 AST 14 L ALT 12 L Alkaline Phosphatase 92 Total Protein 6.0 L Albumin 2.3 L Urine culture negative Problem List - Problems (1) UTI (urinary tract infection) Code(s): N39.0 - URINARY TRACT INFECTION, SITE NOT SPECIFIED Qualifiers: Urinary tract infection type: site unspecified Hematuria presence: without hematuria Qualified Code(s): N39.0 - Urinary tract infection, site not specified (2) Adenocarcinoma of right lung Code(s): C34.91 - MALIGNANT NEOPLASM OF UNSP PART OF RIGHT BRONCHUS OR LUNG (3) Neurogenic bladder Code(s): N31.9 - NEUROMUSCULAR DYSFUNCTION OF BLADDER, UNSPECIFIED (4) Paraplegia Code(s): G82.20 - PARAPLEGIA, UNSPECIFIED (5) Leukocytosis Code(s): D72.829 - ELEVATED WHITE BLOOD CELL COUNT, UNSPECIFIED (6) Tibia/fibula fracture Code(s): S82.209A - UNSP FRACTURE OF SHAFT OF UNSP TIBIA, INIT FOR CLOS FX; S82.409A - UNSP FRACTURE OF SHAFT OF UNSP FIBULA, INIT FOR CLOS FX Qualifiers: Encounter type: initial encounter Fracture type: closed Laterality: left Qualified Code(s): S82.202A - Unspecified fracture of shaft of left tibia, initial encounter for closed fracture; S82.402A - Unspecified fracture of shaft of left fibula, initial encounter for closed fracture Assessment/Plan Leukocytosis Urinary retention Hematuria Paraplegia s/p spinal cord transection Rt lung AdenoCA -- Pt remains afebrile, has hematuria (? post brambila insertion) -- Urine Cx negative -- wbc had decreased but increased from yesterday - repeat cbc -- will d/c antibiotics - is already s/p course of Levaquin -- monitor for resolution of hematuria -- outpt urology/oncology followup d/w Dr. Moody
[2019-09-11] MEDS ORDERED: SODIUM CHLORIDE 1,000 ML IV STA ×2 (14:46)
[2019-09-11] MEDS ORDERED: ALBUTEROL SO4 2.5/IPRATROPIUM 0.5 INH SOL 3 ML VIAL.NEB. NEB PRN (14:47)
[2019-09-11] MEDS ORDERED: VANCOMYCIN 1,000 MG in DEXTROSE 5%-WATER - 250 ML IVPB ONE (15:30)
[2019-09-11] MEDS ORDERED: VANCOMYCIN 1 GRAM (PRE-DOCKED) 1,000 MG/250 ML BAG IVPB ONE (15:30)
[2019-09-11] MEDS ORDERED: PT OWN MED DRAWER 7, Y5N ONE (16:59)
[2019-09-11] MEDS: diphenhydrAMINE HCL 25 MG CAPSULE (FP) PO ONE ×2 (19:41→19:45)
[2019-09-11] MEDS ORDERED: diphenhydrAMINE HCL 25 MG CAPSULE (FP) PO ONE (19:45)
[2019-09-12 07:34] LABS: BASO % 1.1 % (0-2.0); HEMATOCRIT 38.1 % (35.4-49); HEMOGLOBIN 12.6 GM/dL (11.7-16.9); LYMPH % 9.6 % (8-40); MCH 29.5 pg (25.7-33.7); MEAN CELL VOLUME 89.3 fl (80-96); MEAN PLT VOLUME 8.8 fl (7.5-11.1); MONO % 13.9 % (3.8-10.2); NEUT % 72.4 % (42.8-82.8); PLATELET COUNT 515 K/MM3 (134-434); RBC 4.27 M/mm3 (4.00-5.60); RDW 17.5 % (11.9-15.9); WHITE BLOOD COUNT 13.2 K/mm3 (4.0-10.0)
[2019-09-12 07:57] LABS: BLOOD UREA NITROGEN 5.2 mg/dL (7-18); CALCIUM 7.6 mg/dL (8.5-10.1); CREATININE 0.6 mg/dL (0.55-1.3); POTASSIUM 3.2 mmol/L (3.5-5.1)
[2019-09-12] MEDS: SENNOSIDES 8.6MG TABLET (FP) PO PRN (08:35)
[2019-09-12] MEDS: morphine SULFATE 10 MG/5 ML UNIT-DOSE CUP PO PRN ×2 (08:35→22:07)
[2019-09-12] MEDS: DOCUSATE SODIUM 100 MG CAPSULE (FP) PO PRN (08:35)
[2019-09-12] MEDS ORDERED: MINERAL OIL ENEMA 133 ML ENEMA PR ONE (10:33)
[2019-09-12] MEDS ORDERED: MAGNESIUM CITRATE 300 ML BOTTLE PO ONE (10:33)
[2019-09-12] MEDS: POTASSIUM CHLORIDE TABS 20 MEQ TABLET.ER (FP) PO SCH ×2 (10:45→17:27)
--- NOTE | 2019-09-12 13:22 | CONS ---
DATE OF CONSULTATION: 09/12/2019 HISTORY OF PRESENT ILLNESS: I was called to see the patient because of his presentation of urinary retention. PAST HISTORY/INDICATIONS: The patient is a paraplegic for many years with a history of lung cancer which has, as far as I can tell, not been treated. The patient has had voiding issues for many years and for a time had been on intermittent self-catheterization. However, he reports that he has not had to do self-catheterization now for a number of years and feels that he got these on his own quite well. However, about a week ago he describes awakening with a full bladder, which he attributed to drinking too much fluid, presented to the ER where he was straight catheterized and then sent out. He voided for a day and shortly thereafter again gradually became distended and he again presented to the emergency room where again a catheter was inserted, over 500 mL emptied and he was admitted at this time. The patient has had a number of urinary infections in the past, the most recent admission a urine culture was normal and his chemistry with particular attention to BUN and creatinine was normal as well. Currently the patient does have an indwelling catheter lying in bed. While I suspect that this patient has had an elevated residual for quite some time, he insisted that he voids on his own quite well. I would suggest starting him on tamsulosin, waiting another 36 hours and removing the Sharp catheter while he is in the hospital and making sure to do a bladder scan to check a postvoid residual for at least 48 hours after the catheter is removed. If the residual is less that 300 mL I think he can be left without a catheter and not resorting back to intermittent self-catheterization. However, if the residual after 2 days is greater than 300 mL, certainly if greater than 500 mL, I would suggest that he reinitiate self-catheterization. At the present, the patient has been maintained on vancomycin. When his course of vancomycin is completed I would start him on Hiprex, which is a methenamine, 1 g p.o. b.i.d. combined with vitamin C 1 g p.o. b.i.d. as a urinary antiseptic in hopes of preventing future symptomatic urinary infections. At the present time it would not appear that this patient would benefit from any intervention. I would also suggest that he have some imaging done here, just an ultrasound to confirm that there are no upper tract stones or evidence of obstruction that might be related to the chronic paraplegia which does often result in upper tract deterioration in these patients. If there are any questions, please feel free to be in touch with me. Call me currently on my cell if necessary, . MD BISMARK CAMPO/[phone]
--- NOTE | 2019-09-12 13:33 | PN ---
Progress Note, Physician History of Present Illness: Pt is alert, states he feels well today. Has no specific complaints. Episode of hypotension yesterday improved with IV fluids. Has no complaints today. - Current Medication List Current Medications: Active Medications Acetaminophen (Tylenol -) 650 mg PO Q4H PRN PRN Reason: PAIN LEVEL 6-10 Albuterol/Ipratropium (Duoneb -) 1 amp NEB Q6H PRN PRN Reason: SHORTNESS OF BREATH Docusate Sodium (Colace -) 100 mg PO BID PRN PRN Reason: CONSTIPATION Last Admin: 09/12/19 08:35 Dose: 100 mg Morphine Sulfate (Morphine 10 Mg/5 Ml Liquid) 20 mg PO Q4H PRN PRN Reason: PAIN LEVEL 6-10 Last Admin: 09/12/19 08:35 Dose: 20 mg Potassium Chloride (K-Dur -) 40 meq PO Q6H ZAIRA Stop: 09/12/19 14:46 Last Admin: 09/12/19 10:45 Dose: 40 meq Senna (Senna -) 2 tab PO HS PRN PRN Reason: CONSTIPATION Last Admin: 09/12/19 08:35 Dose: 2 tab - Objective Vital Signs: Vital Signs Temperature 98.3 F 09/12/19 10:00 Pulse Rate 118 H 09/12/19 10:00 Respiratory Rate 09/12/19 10:00 Blood Pressure 107/62 09/12/19 10:00 O2 Sat by Pulse Oximetry (%) 97 09/11/19 21:00 Constitutional: Yes: No Distress, Calm Cardiovascular: Yes: Regular Rate and Rhythm Respiratory: Yes: CTA Bilaterally Gastrointestinal: Yes: Normal Bowel Sounds, Soft Genitourinary: Yes: Sharp Present Integumentary: Yes: WNL Neurological: Yes: Alert Labs: CBC, BMP 09/12/19 06:40 09/12/19 06:40 Microbiology 09/09/19 19:00 Urine - Urine - Catheterized Urine Culture - Final NO GROWTH OBTAINED 09/11/19 - blood culture - pending - ....Imaging Chest X-ray: Report Reviewed Problem List - Problems (1) UTI (urinary tract infection) Code(s): N39.0 - URINARY TRACT INFECTION, SITE NOT SPECIFIED Qualifiers: Urinary tract infection type: site unspecified Hematuria presence: without hematuria Qualified Code(s): N39.0 - Urinary tract infection, site not specified (2) Adenocarcinoma of right lung Code(s): C34.91 - MALIGNANT NEOPLASM OF UNSP PART OF RIGHT BRONCHUS OR LUNG (3) Neurogenic bladder Code(s): N31.9 - NEUROMUSCULAR DYSFUNCTION OF BLADDER, UNSPECIFIED (4) Paraplegia Code(s): G82.20 - PARAPLEGIA, UNSPECIFIED (5) Leukocytosis Code(s): D72.829 - ELEVATED WHITE BLOOD CELL COUNT, UNSPECIFIED (6) Tibia/fibula fracture Code(s): S82.209A - UNSP FRACTURE OF SHAFT OF UNSP TIBIA, INIT FOR CLOS FX; S82.409A - UNSP FRACTURE OF SHAFT OF UNSP FIBULA, INIT FOR CLOS FX Qualifiers: Encounter type: initial encounter Fracture type: closed Laterality: left Qualified Code(s): S82.202A - Unspecified fracture of shaft of left tibia, initial encounter for closed fracture; S82.402A - Unspecified fracture of shaft of left fibula, initial encounter for closed fracture Assessment/Plan Leukocytosis Urinary retention Hematuria Paraplegia s/p spinal cord transection Rt lung AdenoCA -- Pt remains afebrile, BP improved after episode of hypotension yesterday -- Urine Cx negative -- follow up blood cultures, CXR is negative -- leukocytosis improving, still mildlly elevated - continue monitor wbc -- Will hold antibiotics for now - s/p recent 10 day course, Urine Cx neg -- outpt urology/oncology followup
--- NOTE | 2019-09-12 21:06 | PN ---
Progress Note (short form) - Note Progress Note: SUBJECTIVE: Feeling well. No complaints. No fever/chills/nausea/vomiting/ abdominal pain. OBJECTIVE: Afebrile, Hemodynamically Stable. Last Vital Signs Temp Pulse Resp BP Pulse Ox 98.5 F 82 20 97/49 L 93 L 09/12/19 14:57 09/12/19 18:00 09/12/19 18:00 09/12/19 18:00 09/12/19 09:00 Heart - S1, S2, RRR Lungs - clear to auscultation Abdomen -Soft, non-tender. Bowel Sounds normal. Extremities - no edema, no calf tenderness. Wasting, contractures LEs. - Sharp in situ, draining mild blood tinged urine. Neuro - AAO x 3. Reduced power LEs. Laboratory Results - last 24 hr 09/12/19 09/12/19 06:40 06:40 WBC 13.2 H RBC 4.27 Hgb 12.6 Hct 38.1 MCV 89.3 MCH 29.5 MCHC 33.0 RDW 17.5 H Plt Count 515 H MPV 8.8 Absolute Neuts (auto) 9.6 H Neutrophils % 72.4 Lymphocytes % 9.6 D Monocytes % 13.9 H Eosinophils % 3.0 Basophils % 1.1 D Nucleated RBC % 0 Sodium 139 Potassium 3.2 L Chloride 103 Carbon Dioxide 28 Anion Gap 8 BUN 5.2 L Creatinine 0.6 Est GFR (CKD-EPI)AfAm 121.43 Est GFR (CKD-EPI)NonAf 104.77 Random Glucose 122 H Calcium 7.6 L Current Medications Generic Name Dose Route Start Last Admin Trade Name Leobardoq PRN Reason Stop Dose Admin Acetaminophen 650 mg 09/10/19 01:01 Tylenol - PO Q4H PRN PAIN LEVEL 6-10 Albuterol/Ipratropium 1 amp 09/11/19 14:47 Duoneb - NEB Q6H PRN SHORTNESS OF BREATH Docusate Sodium 100 mg 09/10/19 01:01 09/12/19 08:35 Colace - PO 100 mg BID PRN Administration CONSTIPATION Morphine Sulfate 20 mg 09/10/19 02:37 09/12/19 08:35 Morphine 10 Mg/5 Ml Liquid PO 20 mg Q4H PRN Administration PAIN LEVEL 6-10 Senna 2 tab 09/10/19 01:01 09/12/19 08:35 Senna - PO 2 tab HS PRN Administration CONSTIPATION Home Medications Medication Instructions Recorded Diazepam [Valium] 10 mg PO TID PRN tablet MDD 30mg 06/17/18 Morphine 10 mg/5 ml Liquid 20 mg PO Q4H MDD 60mg 06/14/19 [Morphine 10 mg/5 mL Liquid -] ASSESSMENT AND PLAN: 64 year old male with history of COPD, R lung Adenocarcinoma (no CTx/RTx/Surgery ), 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 He recently completed a 7 day course of Levofloxacin for UTI. 1. Recent UTI associated with neurogenic bladder and history of self catheterization Urine Cx negative s/p course of outpatient Levofloxacin Initially started on IV Meropenem, now held given neg Urine Cx. Patient subsequently developed Hypotension and was given 1 dose of Vanco but this was stopped early due to localized reaction at infusion site requiring benadryl. ID following. Urology consulted. 2. RUL Adenocarcinoma, not on treatment - for out-patient Oncology follow up. Persisting leukocytosis, chronic, likely sec to underlying Ca. 3. COPD - stable. No evidence of decompensation. Medically optimized for discharge once final ID recommendations are made, with Sharp in-situ and urology follow up next week. Visit type - Emergency Visit Emergency Visit: Yes ED Registration Date: 09/09/19 Care time: The patient presented to the Emergency Department on the above date and was hospitalized for further evaluation of their emergent condition. - New Patient This patient is new to me today: No - Critical Care Critical Care patient: No - Discharge Referral Referred to [facility] Med P.C.: No
[2019-09-13 07:05] LABS: BASO % 0.7 % (0-2.0); EOS % 3.5 % (0-4.5); HEMATOCRIT 40.9 % (35.4-49); HEMOGLOBIN 13.4 GM/dL (11.7-16.9); LYMPH % 9.6 % (8-40); MCH 29.4 pg (25.7-33.7); MCHC 32.8 g/dl (32.0-35.9); MEAN CELL VOLUME 89.5 fl (80-96); MONO % 12.3 % (3.8-10.2); NEUT % 73.9 % (42.8-82.8); PLATELET COUNT 487 K/MM3 (134-434); RBC 4.58 M/mm3 (4.00-5.60); RDW 17.8 % (11.9-15.9)
[2019-09-13 07:39] LABS: BLOOD UREA NITROGEN 4.6 mg/dL (7-18); CALCIUM 8.6 mg/dL (8.5-10.1); CREATININE 0.5 mg/dL (0.55-1.3); POTASSIUM 4.5 mmol/L (3.5-5.1)
[2019-09-13] MEDS: TAMSULOSIN HCL 0.4 MG CAP PO SCH (09:08)
[2019-09-13] MEDS: morphine SULFATE 10 MG/5 ML UNIT-DOSE CUP PO PRN ×2 (11:24→23:28)
--- NOTE | 2019-09-13 11:29 | PN ---
Progress Note, Physician History of Present Illness: stable no new issues some pain in the lower abd going for u/s of the bladder today - Current Medication List Current Medications: Active Medications Acetaminophen (Tylenol -) 650 mg PO Q4H PRN PRN Reason: PAIN LEVEL 6-10 Albuterol/Ipratropium (Duoneb -) 1 amp NEB Q6H PRN PRN Reason: SHORTNESS OF BREATH Docusate Sodium (Colace -) 100 mg PO BID PRN PRN Reason: CONSTIPATION Last Admin: 09/12/19 08:35 Dose: 100 mg Morphine Sulfate (Morphine 10 Mg/5 Ml Liquid) 20 mg PO Q4H PRN PRN Reason: PAIN LEVEL 6-10 Last Admin: 09/13/19 11:24 Dose: 20 mg Senna (Senna -) 2 tab PO HS PRN PRN Reason: CONSTIPATION Last Admin: 09/12/19 08:35 Dose: 2 tab Tamsulosin HCl (Flomax -) 0.4 mg PO DAILY@0830 ZAIRA Last Admin: 09/13/19 09:08 Dose: 0.4 mg - Objective Vital Signs: Vital Signs Temperature 97.9 F 09/13/19 10:00 Pulse Rate 112 H 09/13/19 10:00 Respiratory Rate 18 09/13/19 10:00 Blood Pressure 98/71 09/13/19 10:00 O2 Sat by Pulse Oximetry (%) 95 09/13/19 09:00 Constitutional: Yes: Calm, Mild Distress Cardiovascular: Yes: S1, S2 Respiratory: Yes: Regular, CTA Bilaterally Gastrointestinal: Yes: Normal Bowel Sounds, Soft Musculoskeletal: Yes: WNL Extremities: Yes: Other Neurological: Yes: Alert, Oriented Psychiatric: Yes: Alert, Oriented Labs: CBC, BMP 09/13/19 06:30 09/13/19 06:30 Assessment/Plan 64 year old man with a PMH of COPD, R lung adenocarcinoma (no chemo/rads/ surgery), 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 , Neurogenic bladder, Recurrent UTIs, Hypotension, Problem List - Problems (1) UTI (urinary tract infection) Code(s): N39.0 - URINARY TRACT INFECTION, SITE NOT SPECIFIED Qualifiers: Urinary tract infection type: site unspecified Hematuria presence: without hematuria Qualified Code(s): N39.0 - Urinary tract infection, site not specified (2) Adenocarcinoma of right lung Code(s): C34.91 - MALIGNANT NEOPLASM OF UNSP PART OF RIGHT BRONCHUS OR LUNG (3) Neurogenic bladder Code(s): N31.9 - NEUROMUSCULAR DYSFUNCTION OF BLADDER, UNSPECIFIED (4) Paraplegia Code(s): G82.20 - PARAPLEGIA, UNSPECIFIED (5) Leukocytosis Code(s): D72.829 - ELEVATED WHITE BLOOD CELL COUNT, UNSPECIFIED (6) Tibia/fibula fracture Code(s): S82.209A - UNSP FRACTURE OF SHAFT OF UNSP TIBIA, INIT FOR CLOS FX; S82.409A - UNSP FRACTURE OF SHAFT OF UNSP FIBULA, INIT FOR CLOS FX Qualifiers: Encounter type: initial encounter Fracture type: closed Laterality: left Qualified Code(s): S82.202A - Unspecified fracture of shaft of left tibia, initial encounter for closed fracture; S82.402A - Unspecified fracture of shaft of left fibula, initial encounter for closed fracture Assessment/Plan Leukocytosis Urinary retention Hematuria Paraplegia s/p spinal cord transection Rt lung AdenoCA plan continue current mgmt await for imaging studies
--- NOTE | 2019-09-13 19:22 | PN ---
Teaching Attending Note Name of Resident: Jessie Moses ATTENDING PHYSICIAN STATEMENT I saw and evaluated the patient. I reviewed the resident's note and discussed the case with the resident. I agree with the resident's findings and plan as documented. SUBJECTIVE: Feeling better. No complaints. No fever/chills/nausea/vomiting/ abdominal pain. OBJECTIVE: Afebrile, Hemodynamically Stable. Last Vital Signs Temp Pulse Resp BP Pulse Ox 98.7 F 92 H 20 97/54 L 95 09/13/19 18:31 09/13/19 18:31 09/13/19 18:31 09/13/19 18:31 09/13/19 09:00 Heart - S1, S2, RRR Lungs - clear to auscultation Abdomen -Soft, non-tender. Bowel Sounds normal. Extremities - no edema, no calf tenderness. Wasting, contractures LEs. - Brambila in situ, draining mild blood tinged urine. Neuro - AAO x 3. Reduced power LEs. Laboratory Results - last 24 hr 09/13/19 09/13/19 06:30 06:30 WBC 14.0 H RBC 4.58 Hgb 13.4 Hct 40.9 MCV 89.5 MCH 29.4 MCHC 32.8 RDW 17.8 H Plt Count 487 H MPV 9.0 Absolute Neuts (auto) 10.4 H Neutrophils % 73.9 Lymphocytes % 9.6 Monocytes % 12.3 H Eosinophils % 3.5 Basophils % 0.7 Nucleated RBC % 0 Sodium 138 Potassium 4.5 Chloride 105 Carbon Dioxide 26 Anion Gap 6 L BUN 4.6 L Creatinine 0.5 L Est GFR (CKD-EPI)AfAm 130.88 Est GFR (CKD-EPI)NonAf 112.92 Random Glucose 95 Calcium 8.6 Current Medications Generic Name Dose Route Start Last Admin Trade Name Freq PRN Reason Stop Dose Admin Acetaminophen 650 mg 09/10/19 01:01 Tylenol - PO Q4H PRN PAIN LEVEL 6-10 Albuterol/Ipratropium 1 amp 09/11/19 14:47 Duoneb - NEB Q6H PRN SHORTNESS OF BREATH Docusate Sodium 100 mg 09/10/19 01:01 09/12/19 08:35 Colace - PO 100 mg BID PRN Administration CONSTIPATION Morphine Sulfate 20 mg 09/10/19 02:37 09/13/19 11:24 Morphine 10 Mg/5 Ml Liquid PO 20 mg Q4H PRN Administration PAIN LEVEL 6-10 Senna 2 tab 09/10/19 01:01 09/12/19 08:35 Senna - PO 2 tab HS PRN Administration CONSTIPATION Tamsulosin HCl 0.4 mg 09/13/19 10:00 09/13/19 09:08 Flomax - PO 0.4 mg DAILY@0830 ZAIRA Administration Home Medications Medication Instructions Recorded Diazepam [Valium] 10 mg PO TID PRN tablet MDD 30mg 06/17/18 Morphine 10 mg/5 ml Liquid 20 mg PO Q4H MDD 60mg 06/14/19 [Morphine 10 mg/5 mL Liquid -] ASSESSMENT AND PLAN: 64 year old male with history of COPD, R lung Adenocarcinoma (no CTx/RTx/Surgery ), 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 He recently completed a 7 day course of Levofloxacin for UTI. 1. Recent UTI associated with neurogenic bladder and history of self catheterization Urine Cx negative s/p course of outpatient Levofloxacin Initially started on IV Meropenem, subsequently held given neg Urine Cx. Has remained afebrile, hemodynamically stable off Abx. ID following. Urology consulted - resident discussed case with Dr. Montenegro who prefers TOV as in -patient rather than out-patient. He recommends Tamsulosin, TOV, with Hiprex and Vitamin C on discharge on voiding. Brambila removed today 09/13/19. If not voiding completely (with high residuals on bladder scan), will re-insert brambila prior to discharge scheduled 09/14/19. 2. RUL Adenocarcinoma, not on treatment - for out-patient Oncology follow up. Persisting leukocytosis, chronic, likely sec to underlying Ca. 3. COPD - stable. No evidence of decompensation. Medically optimized for discharge once TOV occurs, with urology and oncology follow ups as out-patient.
[2019-09-14] MEDS: morphine SULFATE 10 MG/5 ML UNIT-DOSE CUP PO PRN ×3 (05:45→22:32)
--- NOTE | 2019-09-14 06:09 | PN ---
Physical Exam: SUBJECTIVE: Patient seen and examined. No acute events overnight. Patient denies chest pain, fever, abd pain, fever, chills. OBJECTIVE: Vital Signs Period Temp Pulse Resp BP Sys/Roche Pulse Ox Last 24 Hr 97.9 F-99.2 F 89-112 18-20 90-109/54-71 95-95 GENERAL: The patient is awake, alert, and fully oriented, in no acute distress. HEAD: Normal with no signs of trauma. EYES: EOMI, no scleral icterus ENT: MMM NECK: Trachea midline, full range of motion, supple. LUNGS: Breath sounds equal, clear to auscultation bilaterally, no wheezes, no crackles, no accessory muscle use. HEART: Regular rate and rhythm, S1, S2 without murmur, rub or gallop. ABDOMEN: Soft, nondistended, normoactive bowel sounds, no guarding, no rebound, no hepatosplenomegaly, no masses. : brambila in place. EXTREMITIES: 2+ pulses, warm, well-perfused. Right wrist fused. NEUROLOGICAL: Normal speech, gait not observed. PSYCH: Normal mood, normal affect. SKIN: Warm, dry, normal turgor, no rashes or lesions noted Laboratory Results - last 24 hr 09/13/19 09/13/19 06:30 06:30 WBC 14.0 H RBC 4.58 Hgb 13.4 Hct 40.9 MCV 89.5 MCH 29.4 MCHC 32.8 RDW 17.8 H Plt Count 487 H MPV 9.0 Absolute Neuts (auto) 10.4 H Neutrophils % 73.9 Lymphocytes % 9.6 Monocytes % 12.3 H Eosinophils % 3.5 Basophils % 0.7 Nucleated RBC % 0 Sodium 138 Potassium 4.5 Chloride 105 Carbon Dioxide 26 Anion Gap 6 L BUN 4.6 L Creatinine 0.5 L Est GFR (CKD-EPI)AfAm 130.88 Est GFR (CKD-EPI)NonAf 112.92 Random Glucose 95 Calcium 8.6 Active Medications Generic Name Dose Route Start Last Admin Trade Name Freq PRN Reason Stop Dose Admin Acetaminophen 650 mg 09/10/19 01:01 Tylenol - PO Q4H PRN PAIN LEVEL 6-10 Albuterol/Ipratropium 1 amp 09/11/19 14:47 Duoneb - NEB Q6H PRN SHORTNESS OF BREATH Docusate Sodium 100 mg 09/10/19 01:01 09/12/19 08:35 Colace - PO 100 mg BID PRN Administration CONSTIPATION Morphine Sulfate 20 mg 09/10/19 02:37 09/14/19 05:45 Morphine 10 Mg/5 Ml Liquid PO 20 mg Q4H PRN Administration PAIN LEVEL 6-10 Senna 2 tab 09/10/19 01:01 09/12/19 08:35 Senna - PO 2 tab HS PRN Administration CONSTIPATION Tamsulosin HCl 0.4 mg 09/13/19 10:00 09/13/19 09:08 Flomax - PO 0.4 mg DAILY@0830 ZAIRA Administration ASSESSMENT/PLAN: 64 y/o/m with a PMHx of COPD, Right lung adenocarcinoma (no chemo/rads/ surgery) , paraplegia secondary to spinal cord transection (T2-T4 in ), neurogenic bladder, recurrent UTIs, hypotension, Recent admission at [facility] s/p left leg distal tibial fracture (d/c'd 06/18/19) returning to the ER for inability to urinate and UTI failing outpatient antibiotic trial. UTI s/p failed outpatient antibiotic therapy with Levaquin - UA positive for UTI. Cultures negative for growth WBC increased to 14, however patient remains afebrile. - Patient with hx of self catheterizations, neurogenic bladder - Meropenum discontinued. ID recommendations appreciated (Dr. Porter). - Urology consulted, Dr. Duke. Brambila catheter in place - recommending that we do a TOV overnight to assess patient's ability to urinate. F/U outpatient - Tamsulosin, with Hiprex and Vitamin C on discharge COPD - Current not in exacerbation - Not on any COPD medications at home - DuoNebs PRN Adenocarcinoma right upper lung lobe - Out-patient hematology/oncology follow up recommended FEN - No IV fluids indicated. - monitor and replete lytes as needed - Regular diet Prophylaxis - Lovenox 40mg subq daiily Disposition - TOV today, anticipate d/c tomorrow Visit type - Emergency Visit Emergency Visit: Yes ED Registration Date: 09/09/19 Care time: The patient presented to the Emergency Department on the above date and was hospitalized for further evaluation of their emergent condition. - New Patient This patient is new to me today: No - Critical Care Critical Care patient: No ATTENDING PHYSICIAN STATEMENT I saw and evaluated the patient. I reviewed the resident's note and discussed the case with the resident. I agree with the resident's findings and plan as documented. SUBJECTIVE: OBJECTIVE: ASSESSMENT AND PLAN:
[2019-09-14 08:28] LABS: BLOOD UREA NITROGEN 7.8 mg/dL (7-18); CALCIUM 8.5 mg/dL (8.5-10.1); CREATININE 0.4 mg/dL (0.55-1.3); EOS % 5.5 % (0-4.5); HEMATOCRIT 38.4 % (35.4-49); HEMOGLOBIN 12.8 GM/dL (11.7-16.9); LYMPH % 13.4 % (8-40); MCH 29.4 pg (25.7-33.7); MCHC 33.3 g/dl (32.0-35.9); MEAN CELL VOLUME 88.3 fl (80-96); MEAN PLT VOLUME 9.2 fl (7.5-11.1); MONO % 10.2 % (3.8-10.2); NEUT % 69.9 % (42.8-82.8); PLATELET COUNT 516 K/MM3 (134-434); RBC 4.35 M/mm3 (4.00-5.60); RDW 17.5 % (11.9-15.9); WHITE BLOOD COUNT 14.3 K/mm3 (4.0-10.0)
[2019-09-14] MEDS: TAMSULOSIN HCL 0.4 MG CAP PO SCH (09:17)
--- NOTE | 2019-09-14 12:07 | PN ---
Progress Note, Physician History of Present Illness: stable no new issues - Current Medication List Current Medications: Active Medications Acetaminophen (Tylenol -) 650 mg PO Q4H PRN PRN Reason: PAIN LEVEL 6-10 Albuterol/Ipratropium (Duoneb -) 1 amp NEB Q6H PRN PRN Reason: SHORTNESS OF BREATH Docusate Sodium (Colace -) 100 mg PO BID PRN PRN Reason: CONSTIPATION Last Admin: 09/12/19 08:35 Dose: 100 mg Morphine Sulfate (Morphine 10 Mg/5 Ml Liquid) 20 mg PO Q4H PRN PRN Reason: PAIN LEVEL 6-10 Last Admin: 09/14/19 05:45 Dose: 20 mg Senna (Senna -) 2 tab PO HS PRN PRN Reason: CONSTIPATION Last Admin: 09/12/19 08:35 Dose: 2 tab Tamsulosin HCl (Flomax -) 0.4 mg PO DAILY@0830 ZAIRA Last Admin: 09/14/19 09:17 Dose: 0.4 mg - Objective Vital Signs: Vital Signs Temperature 98.6 F 09/14/19 08:42 Pulse Rate 101 H 09/14/19 08:42 Respiratory Rate 18 09/14/19 09:00 Blood Pressure 112/62 09/14/19 08:42 O2 Sat by Pulse Oximetry (%) 94 L 09/14/19 09:00 Constitutional: Yes: No Distress, Calm Cardiovascular: Yes: S1, S2 Respiratory: Yes: Regular, CTA Bilaterally Gastrointestinal: Yes: Normal Bowel Sounds, Soft Musculoskeletal: Yes: WNL Extremities: Yes: Other Neurological: Yes: Alert, Oriented Psychiatric: Yes: Alert, Oriented Labs: CBC, BMP 09/14/19 07:38 09/14/19 07:38 Assessment/Plan 64 year old man with a PMH of COPD, R lung adenocarcinoma (no chemo/rads/ surgery), 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 , Neurogenic bladder, Recurrent UTIs, Hypotension, Problem List - Problems (1) UTI (urinary tract infection) Code(s): N39.0 - URINARY TRACT INFECTION, SITE NOT SPECIFIED Qualifiers: Urinary tract infection type: site unspecified Hematuria presence: without hematuria Qualified Code(s): N39.0 - Urinary tract infection, site not specified (2) Adenocarcinoma of right lung Code(s): C34.91 - MALIGNANT NEOPLASM OF UNSP PART OF RIGHT BRONCHUS OR LUNG (3) Neurogenic bladder Code(s): N31.9 - NEUROMUSCULAR DYSFUNCTION OF BLADDER, UNSPECIFIED (4) Paraplegia Code(s): G82.20 - PARAPLEGIA, UNSPECIFIED (5) Leukocytosis Code(s): D72.829 - ELEVATED WHITE BLOOD CELL COUNT, UNSPECIFIED (6) Tibia/fibula fracture Code(s): S82.209A - UNSP FRACTURE OF SHAFT OF UNSP TIBIA, INIT FOR CLOS FX; S82.409A - UNSP FRACTURE OF SHAFT OF UNSP FIBULA, INIT FOR CLOS FX Qualifiers: Encounter type: initial encounter Fracture type: closed Laterality: left Qualified Code(s): S82.202A - Unspecified fracture of shaft of left tibia, initial encounter for closed fracture; S82.402A - Unspecified fracture of shaft of left fibula, initial encounter for closed fracture Assessment/Plan Leukocytosis Urinary retention Hematuria Paraplegia s/p spinal cord transection Rt lung AdenoCA plan continue current mgmt await for imaging studies
--- NOTE | 2019-09-14 15:57 | PN ---
Physical Exam: SUBJECTIVE: Patient seen and examined. Straight cathed twice overnight and once this morning. Able to urinate a small amount with condom cath in place. Denies abd pain, chest pain, fever, chills, fever. Patient believes that he will be able to urinate on his own if we give him enough time. OBJECTIVE: Vital Signs Period Temp Pulse Resp BP Sys/Roche Pulse Ox Last 24 Hr 97.7 F-98.7 F 65-101 18-20 97-112/48-70 94-95 GENERAL: The patient is awake, alert, and fully oriented, in no acute distress. HEAD: Normal with no signs of trauma. EYES: EOMI, no scleral icterus ENT: MMM NECK: Trachea midline, full range of motion, supple. LUNGS: Breath sounds equal, clear to auscultation bilaterally, no wheezes, no crackles, no accessory muscle use. HEART: Regular rate and rhythm, S1, S2 without murmur, rub or gallop. ABDOMEN: Soft, nondistended, normoactive bowel sounds, no guarding, no rebound, no hepatosplenomegaly, no masses. : condom cath in place EXTREMITIES: 2+ pulses, warm, well-perfused. Right wrist fused. emaciated lower extremities. NEUROLOGICAL: Normal speech, gait not observed. PSYCH: Normal mood, normal affect. SKIN: Warm, dry, normal turgor, no rashes or lesions noted Laboratory Results - last 24 hr 09/14/19 09/14/19 07:38 07:38 WBC 14.3 H RBC 4.35 Hgb 12.8 Hct 38.4 MCV 88.3 MCH 29.4 MCHC 33.3 RDW 17.5 H Plt Count 516 H MPV 9.2 Absolute Neuts (auto) 10.0 H Neutrophils % 69.9 Lymphocytes % 13.4 D Monocytes % 10.2 Eosinophils % 5.5 H Basophils % 1.0 Nucleated RBC % 0 Sodium 137 Potassium 4.0 Chloride 104 Carbon Dioxide 27 Anion Gap 6 L BUN 7.8 Creatinine 0.4 L Est GFR (CKD-EPI)AfAm 143.45 Est GFR (CKD-EPI)NonAf 123.77 Random Glucose 86 Calcium 8.5 Active Medications Generic Name Dose Route Start Last Admin Trade Name Freq PRN Reason Stop Dose Admin Acetaminophen 650 mg 09/10/19 01:01 Tylenol - PO Q4H PRN PAIN LEVEL 6-10 Albuterol/Ipratropium 1 amp 09/11/19 14:47 Duoneb - NEB Q6H PRN SHORTNESS OF BREATH Docusate Sodium 100 mg 09/10/19 01:01 09/12/19 08:35 Colace - PO 100 mg BID PRN Administration CONSTIPATION Morphine Sulfate 20 mg 09/10/19 02:37 09/14/19 14:00 Morphine 10 Mg/5 Ml Liquid PO 20 mg Q4H PRN Administration PAIN LEVEL 6-10 Senna 2 tab 09/10/19 01:01 09/12/19 08:35 Senna - PO 2 tab HS PRN Administration CONSTIPATION Tamsulosin HCl 0.4 mg 09/13/19 10:00 09/14/19 09:17 Flomax - PO 0.4 mg DAILY@0830 ZAIRA Administration ASSESSMENT/PLAN: 64 y/o/m with a PMHx of COPD, Right lung adenocarcinoma (no chemo/rads/ surgery) , 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 #UTI s/p failed outpatient antibiotic therapy with Levaquin - UA positive for UTI. Cultures negative for growth WBC increased to 14.3, however patient remains afebrile. - Patient with hx of self catheterizations, neurogenic bladder - Meropenum discontinued. ID recommendations appreciated (Dr. Porter). - Urology consulted, Dr. Duke. Sharp catheter in place - recommending that we do a TOV overnight to assess patient's ability to urinate - Tamsulosin, with Hiprex and Vitamin C on discharge - Bladder scan and straight cath orders canceled. TOV tonight to assess patient' s ability to urinate. Will sign out to night team to bladder scan and cath only if patient complaining of pain/discomfort. Otherwise, condom cath in place. Will discuss options for suprapubic catheter tomorrow if patient fails TOV tonight. #COPD - Current not in exacerbation - Not on any COPD medications at home - DuoNebs PRN #Adenocarcinoma right upper lung lobe - Out-patient hematology/oncology follow up recommended #FEN - No IV fluids indicated - monitor and replete lytes as needed - Regular diet #Prophylaxis - Lovenox 40mg subq daily #Disposition - TOV overnight, will assess tomorrow pending results of TOV Visit type - Emergency Visit Emergency Visit: Yes ED Registration Date: 09/09/19 Care time: The patient presented to the Emergency Department on the above date and was hospitalized for further evaluation of their emergent condition. - New Patient This patient is new to me today: No - Critical Care Critical Care patient: No ATTENDING PHYSICIAN STATEMENT I saw and evaluated the patient. I reviewed the resident's note and discussed the case with the resident. I agree with the resident's findings and plan as documented. SUBJECTIVE: OBJECTIVE: ASSESSMENT AND PLAN:
--- NOTE | 2019-09-14 18:55 | PN ---
Teaching Attending Note Name of Resident: Park Juan ATTENDING PHYSICIAN STATEMENT I saw and evaluated the patient. I reviewed the resident's note and discussed the case with the resident. I agree with the resident's findings and plan as documented. SUBJECTIVE: No fever or chills. constipated but does not need help with stool softener. denies pain. OBJECTIVE: NAD CV: RRR Lungs: CTAB Ext : muscle atrophy in pelvic area and LE s no pressure ulcers on feet ASSESSMENT AND PLAN: Unfortunate 64 y/o man with h/o spinal cord injury at level of T4, paraplegia, neurogenic bladder, recurrent UTIs, COPD, chronic pain, splenectomy, adenocarcinoma of R lung, recent Tib/Fib fx who presented due to worsening urinary retention, and being unable to self catheterize himself. 1- Urinary retention. 2- Pyuria 3- chronic back pain. 4- leukocytosis 5- thrombocytosis 6- h/o lung cancer: Recent Bx 06/26 : with adenocarcinoma plan : - stop straight cath and monitor for spontaneous void till tomorrow . patient wants to cont to monitor until he feels ready. If by tomorrow , he can't void then he was given 2 options : chronic brambila Vs suprapubic cath. ( he can't perform self cath at home and aid does not feel comfortable ) - will d/w uro tomorrow - cont home morphine po - monitor off Abx - heme eval for chronic thrombocytosis and leukocytosis. he can't leave home for any appointments . ? BM bx - add SQ heaprin
[2019-09-14] MEDS: HEPARIN NA (PORCINE) 5,000 UNITS/ML 1ML VIAL SQ SCH (22:27)
[2019-09-15] MEDS: morphine SULFATE 10 MG/5 ML UNIT-DOSE CUP PO PRN ×3 (06:04→21:49)
[2019-09-15] MEDS: HEPARIN NA (PORCINE) 5,000 UNITS/ML 1ML VIAL SQ SCH ×3 (06:06→21:49)
[2019-09-15 07:35] LABS: EOS % 7.5 % (0-4.5); HEMATOCRIT 38.9 % (35.4-49); HEMOGLOBIN 12.8 GM/dL (11.7-16.9); LYMPH % 16.8 % (8-40); MCH 29.4 pg (25.7-33.7); MCHC 32.8 g/dl (32.0-35.9); MEAN CELL VOLUME 89.5 fl (80-96); MEAN PLT VOLUME 10.1 fl (7.5-11.1); MONO % 9.5 % (3.8-10.2); NEUT % 65.2 % (42.8-82.8); PLATELET COUNT 487 K/MM3 (134-434); RBC 4.34 M/mm3 (4.00-5.60); RDW 17.1 % (11.9-15.9); WHITE BLOOD COUNT 10.1 K/mm3 (4.0-10.0)
[2019-09-15 08:34] LABS: ALBUMIN 2.2 g/dl (3.4-5.0); BILIRUBIN,TOTAL 0.2 mg/dL (0.2-1); BLOOD UREA NITROGEN 7.3 mg/dL (7-18); CALCIUM 8.2 mg/dL (8.5-10.1); CREATININE 0.4 mg/dL (0.55-1.3); TOT PROT 5.7 g/dl (6.4-8.2)
[2019-09-15] MEDS: TAMSULOSIN HCL 0.4 MG CAP PO SCH (09:28)
--- NOTE | 2019-09-15 12:10 | PN ---
Progress Note, Physician History of Present Illness: stable no new issues - Current Medication List Current Medications: Active Medications Acetaminophen (Tylenol -) 650 mg PO Q4H PRN PRN Reason: PAIN LEVEL 6-10 Albuterol/Ipratropium (Duoneb -) 1 amp NEB Q6H PRN PRN Reason: SHORTNESS OF BREATH Docusate Sodium (Colace -) 100 mg PO BID PRN PRN Reason: CONSTIPATION Last Admin: 09/12/19 08:35 Dose: 100 mg Heparin Sodium (Porcine) (Heparin -) 5,000 unit SQ TID REPLACED BY [facility] Last Admin: 09/15/19 06:06 Dose: 5,000 unit Morphine Sulfate (Morphine 10 Mg/5 Ml Liquid) 20 mg PO Q4H PRN PRN Reason: PAIN LEVEL 6-10 Last Admin: 09/15/19 06:04 Dose: 20 mg Senna (Senna -) 2 tab PO HS PRN PRN Reason: CONSTIPATION Last Admin: 09/12/19 08:35 Dose: 2 tab Tamsulosin HCl (Flomax -) 0.4 mg PO DAILY@0830 REPLACED BY [facility] Last Admin: 09/15/19 09:28 Dose: 0.4 mg - Objective Vital Signs: Vital Signs Temperature 97.9 F 09/15/19 10:00 Pulse Rate 93 H 09/15/19 10:00 Respiratory Rate 18 09/15/19 10:00 Blood Pressure 105/56 L 09/15/19 10:00 O2 Sat by Pulse Oximetry (%) 95 09/14/19 20:17 Constitutional: Yes: No Distress, Calm Cardiovascular: Yes: S1, S2 Respiratory: Yes: Regular, CTA Bilaterally Gastrointestinal: Yes: Normal Bowel Sounds, Soft Musculoskeletal: Yes: WNL Extremities: Yes: Other Neurological: Yes: Alert Psychiatric: Yes: Alert Labs: CBC, BMP 09/15/19 06:20 09/15/19 06:20 Assessment/Plan 64 year old man with a PMH of COPD, R lung adenocarcinoma (no chemo/rads/ surgery), 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 , Neurogenic bladder, Recurrent UTIs, Hypotension, Problem List - Problems (1) UTI (urinary tract infection) Code(s): N39.0 - URINARY TRACT INFECTION, SITE NOT SPECIFIED Qualifiers: Urinary tract infection type: site unspecified Hematuria presence: without hematuria Qualified Code(s): N39.0 - Urinary tract infection, site not specified (2) Adenocarcinoma of right lung Code(s): C34.91 - MALIGNANT NEOPLASM OF UNSP PART OF RIGHT BRONCHUS OR LUNG (3) Neurogenic bladder Code(s): N31.9 - NEUROMUSCULAR DYSFUNCTION OF BLADDER, UNSPECIFIED (4) Paraplegia Code(s): G82.20 - PARAPLEGIA, UNSPECIFIED (5) Leukocytosis Code(s): D72.829 - ELEVATED WHITE BLOOD CELL COUNT, UNSPECIFIED (6) Tibia/fibula fracture Code(s): S82.209A - UNSP FRACTURE OF SHAFT OF UNSP TIBIA, INIT FOR CLOS FX; S82.409A - UNSP FRACTURE OF SHAFT OF UNSP FIBULA, INIT FOR CLOS FX Qualifiers: Encounter type: initial encounter Fracture type: closed Laterality: left Qualified Code(s): S82.202A - Unspecified fracture of shaft of left tibia, initial encounter for closed fracture; S82.402A - Unspecified fracture of shaft of left fibula, initial encounter for closed fracture Assessment/Plan Leukocytosis Urinary retention Hematuria Paraplegia s/p spinal cord transection Rt lung AdenoCA plan continue current mgmt
--- NOTE | 2019-09-15 14:05 | CONSULT ---
Consultation: REQUESTING PROVIDER:Dr Banegas CONSULT REQUEST: We have been asked to medically evaluate this patient for ( Leuckocytosis , Right upper lobe mass ). HISTORY OF PRESENT ILLNESS: 64 year old man with a PMH of COPD, R lung adenocarcinoma (no chemo/rads/ surgery), 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 , Neurogenic bladder, Recurrent UTIs, Hypotension, Recent admission at [facility] s/p left leg distal tibial fracture (d/c'd 06/18/19) returning to the ER for inability to urinate. He presented to the ER because of urinary retention. He was discharged to continue on PO levaquin that he had been on for UTI. He was seen on 09/04/19 with the same symptoms. At that time, he was straight cathed and discharged with 7 days of levofloxacin for UTI. Today he is complaining of lower abdominal pain and of having a New UTI. According to pt, he took his prescribed antibiotics with one dose left.He denies any fever, chills, SOB, chest pain, hematuria at this time. 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 denies any chest pain or shortness of breath , former smoker denies any weight changes need to discuss goal of care with pt and treatment plan he would like to discuss first with his PCP Dr Grissom PAST MEDICAL HISTORY: as above PAST SURGICAL HISTORY: pt endorsed multiple surgeries without specifications splenectomy long time ago per pt spinal surgery right hand surgery receny lung biopsy Social History: SmokinPPD over 10-20 years but quit a long time ago Alcohol: denies Drugs: denies Allergies No Known Allergies Allergy REVIEW OF SYSTEMS: CONSTITUTIONAL: Absent: fever, chills, diaphoresis, generalized weakness, malaise, loss of appetite, weight change HEENT: Absent: rhinorrhea, nasal congestion, throat pain, throat swelling, difficulty swallowing, mouth swelling, ear pain, eye pain, visual changes CARDIOVASCULAR: Absent: chest pain, syncope, palpitations, irregular heart rate, lightheadedness , peripheral edema RESPIRATORY: Absent: cough, shortness of breath, dyspnea with exertion, orthopnea, wheezing, stridor, hemoptysis GASTROINTESTINAL: Absent: abdominal pain, abdominal distension, nausea, vomiting, diarrhea, constipation, melena, hematochezia GENITOURINARY: Absent: dysuria, frequency, urgency, hesitancy, hematuria, flank pain, genital pain MUSCULOSKELETAL: Absent: myalgia, arthralgia, joint swelling, back pain, neck pain SKIN: Absent: rash, itching, pallor HEMATOLOGIC/IMMUNOLOGIC: Absent: easy bleeding, easy bruising, lymphadenopathy, frequent infections ENDOCRINE: Absent: unexplained weight gain, unexplained weight loss, heat intolerance, cold intolerance NEUROLOGIC: Absent: headache, focal weakness or paresthesias, dizziness, unsteady gait, seizure, mental status changes, bladder or bowel incontinence PSYCHIATRIC: Absent: anxiety, depression, suicidal or homicidal ideation, hallucinations. PHYSICAL EXAMINATION Vital Signs - 24 hr 09/14/19 09/14/19 09/14/19 14:35 18:00 20:17 Temperature 97.7 F 98.4 F Pulse Rate 100 H 75 Respiratory 18 18 18 Rate Blood Pressure 111/48 L 138/66 O2 Sat by Pulse 95 Oximetry (%) 09/14/19 09/15/19 09/15/19 21:12 05:53 10:00 Temperature 97.8 F 98.4 F 97.9 F Pulse Rate 71 95 H 93 H Respiratory 18 18 18 Rate Blood Pressure 106/48 L 94/54 L 105/56 L O2 Sat by Pulse Oximetry (%) 09/15/19 13:39 Temperature 98.2 F Pulse Rate 88 Respiratory 18 Rate Blood Pressure 82/43 L O2 Sat by Pulse Oximetry (%) GENERAL: Awake, alert, and fully oriented, in no acute distress.laying down in bed on left side with LE paraplegia HEAD: Normal with no signs of trauma. EYES: Pupils equal, round and reactive to light, extraocular movements intact, EARS, NOSE, THROAT: Moist mucous membranes.palate erythema , nose root scar NECK: supple without lymphadenopathy, LUNGS: Breath sounds equal, clear to auscultation bilaterally. No wheezes, and no crackles. No accessory muscle use. HEART: Regular rate and rhythm, normal S1 and S2 , 2/6 systolic murmur LUSB ABDOMEN: Soft, nontender, not distended, normoactive bowel sounds, longtudinal surgical scar UPPER EXTREMITIES: 2+ pulses, warm, well-perfused. No cyanosis. right hand surgery scar and limited hand drive away driver motion LOWER EXTREMITIES: 2+ pulses, warm, well-perfused. No peripheral edema. paraplegia , muscle atrophy NEUROLOGICAL: lower ext paraplgia , upper ext left arm 5/5 proximal and distal , right ar proximal and distal 5/5 , hand drive away driver limited due t previous surgery . Normal speech PSYCHIATRIC: Cooperative. SKIN: Warm, dry, small keratosis left upper chest external hemorrhoids no lymph nodes enlargement palpated no breast mass palpated Laboratory Results - last 24 hr 09/15/19 09/15/19 06:20 06:20 WBC 10.1 H RBC 4.34 Hgb 12.8 Hct 38.9 MCV 89.5 MCH 29.4 MCHC 32.8 RDW 17.1 H Plt Count 487 H MPV 10.1 Absolute Neuts (auto) 6.6 Neutrophils % 65.2 Lymphocytes % 16.8 D Monocytes % 9.5 Eosinophils % 7.5 H Basophils % 1.0 Nucleated RBC % 0 Sodium 138 Potassium 4.0 Chloride 103 Carbon Dioxide 27 Anion Gap 8 BUN 7.3 Creatinine 0.4 L Est GFR (CKD-EPI)AfAm 143.45 Est GFR (CKD-EPI)NonAf 123.77 Random Glucose 74 Calcium 8.2 L Total Bilirubin 0.2 AST 12 L ALT 14 Alkaline Phosphatase 103 Total Protein 5.7 L Albumin 2.2 L Active Medications Generic Name Dose Route Start Last Admin Trade Name Leobardoq PRN Reason Stop Dose Admin Acetaminophen 650 mg 09/10/19 01:01 Tylenol - PO Q4H PRN PAIN LEVEL 6-10 Albuterol/Ipratropium 1 amp 09/11/19 14:47 Duoneb - NEB Q6H PRN SHORTNESS OF BREATH Docusate Sodium 100 mg 09/10/19 01:01 09/12/19 08:35 Colace - PO 100 mg BID PRN Administration CONSTIPATION Gabapentin 300 mg 09/15/19 22:00 Neurontin - PO HS ZAIRA Heparin Sodium (Porcine) 5,000 unit 09/14/19 22:00 09/15/19 06:06 Heparin - SQ 5,000 unit TID ZAIRA Administration Morphine Sulfate 20 mg 09/10/19 02:37 09/15/19 06:04 Morphine 10 Mg/5 Ml Liquid PO 20 mg Q4H PRN Administration PAIN LEVEL 6-10 Senna 2 tab 09/10/19 01:01 09/12/19 08:35 Senna - PO 2 tab HS PRN Administration CONSTIPATION Tamsulosin HCl 0.4 mg 09/13/19 10:00 09/15/19 09:28 Flomax - PO 0.4 mg DAILY@0830 ZAIRA Administration CBC, BMP 09/15/19 06:20 09/15/19 06:20 ASSESSMENT/PLAN: # Leuckocytosis /thrombocytosis due to infection vs malignancy vs splenectomy can nor R.O myeloproliferative disorder R.O infection process UA positive , agustin cx negative thus far , will send Fish, Flow cytometry and Cytogenetics # Right Upper Lobe mass recent [id number] with lung adencarcinoma stage , moderate differentiated , lipidic and papillary features will obbttain pathology report and discuss treatment options and goal of care with the pt # Hypotensive ' # COPD # recurrent UTI # paraplegia # urinary retention rest per primary team Dispo: We will continue to follow the patient. Thank you for this consultative opportunity. Visit type - Emergency Visit Emergency Visit: Yes ED Registration Date: 09/09/19 Care time: The patient presented to the Emergency Department on the above date and was hospitalized for further evaluation of their emergent condition. - New Patient This patient is new to me today: Yes Date on this admission: 09/15/19 - Critical Care Critical Care patient: No ATTENDING PHYSICIAN STATEMENT I saw and evaluated the patient. I reviewed the resident's note and discussed the case with the resident. I agree with the resident's findings and plan as documented. SUBJECTIVE: OBJECTIVE: ASSESSMENT AND PLAN:
--- NOTE | 2019-09-15 17:17 | PN ---
Addendum entered and electronically signed by Jessie Moses, RESIDENT 09/15/19 17:24: Started patient on Gabapentin 300 QHS for neuropathy Original Note: Physical Exam: SUBJECTIVE: Patient seen and examined. Able to urinate somewhat overnight but requested to be straight cathed as he was feeling uncomfortable. Patient denies the option of suprapubic cath. Denies chest pain, fever, chills, SOB, abd pain. OBJECTIVE: Vital Signs Period Temp Pulse Resp BP Sys/Roche Pulse Ox Last 24 Hr 97.8 F-98.4 F 71-95 18-18 82-138/43-66 95-95 GENERAL: The patient is awake, alert, and fully oriented, in no acute distress. HEAD: Normal with no signs of trauma. EYES: EOMI, no scleral icterus, no ptosis ENT: MMM NECK: Trachea midline, full range of motion, supple. LUNGS: CTA B/L, no wheezes, no crackles, no accessory muscle use. HEART: Regular rate and rhythm, S1, S2 without murmur, rub or gallop. ABDOMEN: Soft, nondistended, normoactive bowel sounds, no guarding, no rebound, no hepatosplenomegaly, no masses. : condom cath in place EXTREMITIES: 2+ pulses, warm, well-perfused. Right wrist fused. emaciated lower extremities. NEUROLOGICAL: Normal speech, gait not observed. PSYCH: Normal mood, normal affect. SKIN: Warm, dry, normal turgor, no rashes or lesions noted Laboratory Results - last 24 hr 09/15/19 09/15/19 06:20 06:20 WBC 10.1 H RBC 4.34 Hgb 12.8 Hct 38.9 MCV 89.5 MCH 29.4 MCHC 32.8 RDW 17.1 H Plt Count 487 H MPV 10.1 Absolute Neuts (auto) 6.6 Neutrophils % 65.2 Lymphocytes % 16.8 D Monocytes % 9.5 Eosinophils % 7.5 H Basophils % 1.0 Nucleated RBC % 0 Sodium 138 Potassium 4.0 Chloride 103 Carbon Dioxide 27 Anion Gap 8 BUN 7.3 Creatinine 0.4 L Est GFR (CKD-EPI)AfAm 143.45 Est GFR (CKD-EPI)NonAf 123.77 Random Glucose 74 Calcium 8.2 L Total Bilirubin 0.2 AST 12 L ALT 14 Alkaline Phosphatase 103 Total Protein 5.7 L Albumin 2.2 L Active Medications Generic Name Dose Route Start Last Admin Trade Name Freq PRN Reason Stop Dose Admin Acetaminophen 650 mg 09/10/19 01:01 Tylenol - PO Q4H PRN PAIN LEVEL 6-10 Albuterol/Ipratropium 1 amp 09/11/19 14:47 Duoneb - NEB Q6H PRN SHORTNESS OF BREATH Docusate Sodium 100 mg 09/10/19 01:01 09/12/19 08:35 Colace - PO 100 mg BID PRN Administration CONSTIPATION Gabapentin 300 mg 09/15/19 22:00 Neurontin - PO HS ZAIRA Heparin Sodium (Porcine) 5,000 unit 09/14/19 22:00 09/15/19 15:34 Heparin - SQ 5,000 unit TID ZAIRA Administration Morphine Sulfate 20 mg 09/10/19 02:37 09/15/19 06:04 Morphine 10 Mg/5 Ml Liquid PO 20 mg Q4H PRN Administration PAIN LEVEL 6-10 Senna 2 tab 09/10/19 01:01 09/12/19 08:35 Senna - PO 2 tab HS PRN Administration CONSTIPATION Tamsulosin HCl 0.4 mg 09/13/19 10:00 09/15/19 09:28 Flomax - PO 0.4 mg DAILY@0830 [facility] Administration ASSESSMENT/PLAN: 64 y/o/m with a PMHx of COPD, Right lung adenocarcinoma (no chemo/rads/ surgery) , 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 #UTI s/p failed outpatient antibiotic therapy with Levaquin - UA positive for UTI. Cultures negative for growth WBC downtrending, patient remains afebrile. - Patient with hx of self catheterizations, neurogenic bladder - Meropenum discontinued. ID recommendations appreciated (Dr. Porter). - Urology consulted, Dr. Duke. Brambila catheter in place - ok with plan to send patient home with brambila cath, will need to set up appointment for follow up - Tamsulosin, with Hiprex and Vitamin C on discharge - Bladder scan and straight cath orders canceled. If patient needs to be straight cathed overnight, would just place indwelling brambila - Patient not agreeable with option for suprapubic cath #COPD - Currently not in exacerbation - Not on any COPD medications at home - DuoNebs PRN #Adenocarcinoma right upper lung lobe - Out-patient hematology/oncology follow up recommended - Heme/onc consulted - workup as per Heme/Onc #FEN - No IV fluids indicated - monitor and replete lytes as needed - Regular diet #Prophylaxis - Lovenox 40mg subq daily #Disposition - brambila cath overnight if needed. Anticipate D/C tomorrow if f/u arranged Visit type - Emergency Visit Emergency Visit: Yes ED Registration Date: 09/09/19 Care time: The patient presented to the Emergency Department on the above date and was hospitalized for further evaluation of their emergent condition. - New Patient This patient is new to me today: No - Critical Care Critical Care patient: No ATTENDING PHYSICIAN STATEMENT I saw and evaluated the patient. I reviewed the resident's note and discussed the case with the resident. I agree with the resident's findings and plan as documented. SUBJECTIVE: OBJECTIVE: ASSESSMENT AND PLAN:
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
[2019-09-15] MEDS: GABAPENTIN 300 MG CAPSULE (FP) PO SCH (21:49)
[2019-09-16] MEDS: morphine SULFATE 10 MG/5 ML UNIT-DOSE CUP PO PRN ×2 (02:45→20:05)
[2019-09-16] MEDS: HEPARIN NA (PORCINE) 5,000 UNITS/ML 1ML VIAL SQ SCH ×3 (05:23→22:41)
[2019-09-16 08:04] LABS: HEMATOCRIT 36.4 % (35.4-49); HEMOGLOBIN 12.1 GM/dL (11.7-16.9); MCH 29.7 pg (25.7-33.7); MCHC 33.2 g/dl (32.0-35.9); MEAN CELL VOLUME 89.4 fl (80-96); MEAN PLT VOLUME 9.6 fl (7.5-11.1); PLATELET COUNT 500 K/MM3 (134-434); RBC 4.07 M/mm3 (4.00-5.60); RDW 17.2 % (11.9-15.9); WHITE BLOOD COUNT 10.1 K/mm3 (4.0-10.0)
[2019-09-16 08:34] LABS: ALBUMIN 2.2 g/dl (3.4-5.0); BILIRUBIN,TOTAL 0.2 mg/dL (0.2-1); CALCIUM 8.5 mg/dL (8.5-10.1); CREATININE 0.5 mg/dL (0.55-1.3); POTASSIUM 4.3 mmol/L (3.5-5.1); TOT PROT 5.8 g/dl (6.4-8.2)
[2019-09-16] MEDS: TAMSULOSIN HCL 0.4 MG CAP PO SCH (09:40)
--- NOTE | 2019-09-16 12:05 | PN ---
Progress Note, Physician History of Present Illness: stable no new issues - Current Medication List Current Medications: Active Medications Acetaminophen (Tylenol -) 650 mg PO Q4H PRN PRN Reason: PAIN LEVEL 6-10 Albuterol/Ipratropium (Duoneb -) 1 amp NEB Q6H PRN PRN Reason: SHORTNESS OF BREATH Docusate Sodium (Colace -) 100 mg PO BID PRN PRN Reason: CONSTIPATION Last Admin: 09/12/19 08:35 Dose: 100 mg Gabapentin (Neurontin -) 300 mg PO HS [facility] Last Admin: 09/15/19 21:49 Dose: 300 mg Heparin Sodium (Porcine) (Heparin -) 5,000 unit SQ TID [facility] Last Admin: 09/16/19 05:23 Dose: 5,000 unit Morphine Sulfate (Morphine 10 Mg/5 Ml Liquid) 20 mg PO Q4H PRN PRN Reason: PAIN LEVEL 6-10 Last Admin: 09/16/19 02:45 Dose: 20 mg Senna (Senna -) 2 tab PO HS PRN PRN Reason: CONSTIPATION Last Admin: 09/12/19 08:35 Dose: 2 tab Tamsulosin HCl (Flomax -) 0.4 mg PO DAILY@0830 [facility] Last Admin: 09/16/19 09:40 Dose: 0.4 mg - Objective Vital Signs: Vital Signs Temperature 98.6 F 09/16/19 10:00 Pulse Rate 95 H 09/16/19 10:00 Respiratory Rate 18 09/16/19 10:00 Blood Pressure 90/59 L 09/16/19 10:00 O2 Sat by Pulse Oximetry (%) 95 09/16/19 09:00 Constitutional: Yes: No Distress, Calm Cardiovascular: Yes: S1, S2 Respiratory: Yes: Regular, CTA Bilaterally Gastrointestinal: Yes: Normal Bowel Sounds, Soft Musculoskeletal: Yes: WNL Extremities: Yes: Other Labs: CBC, BMP 09/16/19 07:00 09/16/19 07:00 Assessment/Plan 64 year old man with a PMH of COPD, R lung adenocarcinoma (no chemo/rads/ surgery), 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 , Neurogenic bladder, Recurrent UTIs, Hypotension, Problem List - Problems (1) UTI (urinary tract infection) Code(s): N39.0 - URINARY TRACT INFECTION, SITE NOT SPECIFIED Qualifiers: Urinary tract infection type: site unspecified Hematuria presence: without hematuria Qualified Code(s): N39.0 - Urinary tract infection, site not specified (2) Adenocarcinoma of right lung Code(s): C34.91 - MALIGNANT NEOPLASM OF UNSP PART OF RIGHT BRONCHUS OR LUNG (3) Neurogenic bladder Code(s): N31.9 - NEUROMUSCULAR DYSFUNCTION OF BLADDER, UNSPECIFIED (4) Paraplegia Code(s): G82.20 - PARAPLEGIA, UNSPECIFIED (5) Leukocytosis Code(s): D72.829 - ELEVATED WHITE BLOOD CELL COUNT, UNSPECIFIED (6) Tibia/fibula fracture Code(s): S82.209A - UNSP FRACTURE OF SHAFT OF UNSP TIBIA, INIT FOR CLOS FX; S82.409A - UNSP FRACTURE OF SHAFT OF UNSP FIBULA, INIT FOR CLOS FX Qualifiers: Encounter type: initial encounter Fracture type: closed Laterality: left Qualified Code(s): S82.202A - Unspecified fracture of shaft of left tibia, initial encounter for closed fracture; S82.402A - Unspecified fracture of shaft of left fibula, initial encounter for closed fracture Assessment/Plan Leukocytosis Urinary retention Hematuria Paraplegia s/p spinal cord transection Rt lung AdenoCA plan continue current mgmt stable
--- NOTE | 2019-09-16 17:33 | PN ---
Physical Exam: SUBJECTIVE: Patient seen and examined. Patient not amenable to going with home with brambila or suprapubic catheter. He believs he will be able to void on his own , however he cannot straight cath himself anymore if needed. No acute events overnight. OBJECTIVE: Vital Signs Period Temp Pulse Resp BP Sys/Roche Pulse Ox Last 24 Hr 98.6 F-99.2 F 69-95 16-18 90-126/59-61 95-95 GENERAL: The patient is awake, alert, and fully oriented, in no acute distress. HEAD: Normal with no signs of trauma. EYES: EOMI, no scleral icterus, no ptosis ENT: MMM NECK: Trachea midline, full range of motion, supple. LUNGS: CTA B/L, no wheezes, no crackles, no accessory muscle use. HEART: Regular rate and rhythm, S1, S2 without murmur, rub or gallop. ABDOMEN: Soft, nondistended, normoactive bowel sounds, no guarding, no rebound, no hepatosplenomegaly, no masses. : condom cath in place EXTREMITIES: 2+ pulses, warm, well-perfused. Right wrist fused. emaciated lower extremities. NEUROLOGICAL: Normal speech, gait not observed. PSYCH: Normal mood, normal affect. SKIN: Warm, dry, normal turgor, no rashes or lesions noted Laboratory Results - last 24 hr 09/16/19 09/16/19 07:00 07:00 WBC 10.1 H RBC 4.07 Hgb 12.1 Hct 36.4 MCV 89.4 MCH 29.7 MCHC 33.2 RDW 17.2 H Plt Count 500 H MPV 9.6 Sodium 138 Potassium 4.3 Chloride 102 Carbon Dioxide 30 Anion Gap 6 L BUN 9.0 Creatinine 0.5 L Est GFR (CKD-EPI)AfAm 130.88 Est GFR (CKD-EPI)NonAf 112.92 Random Glucose 87 Calcium 8.5 Total Bilirubin 0.2 AST 11 L ALT 12 L Alkaline Phosphatase 83 Total Protein 5.8 L Albumin 2.2 L Active Medications Generic Name Dose Route Start Last Admin Trade Name Freq PRN Reason Stop Dose Admin Acetaminophen 650 mg 09/10/19 01:01 Tylenol - PO Q4H PRN PAIN LEVEL 6-10 Albuterol/Ipratropium 1 amp 09/11/19 14:47 Duoneb - NEB Q6H PRN SHORTNESS OF BREATH Docusate Sodium 100 mg 09/10/19 01:01 09/12/19 08:35 Colace - PO 100 mg BID PRN Administration CONSTIPATION Gabapentin 300 mg 09/15/19 22:00 09/15/19 21:49 Neurontin - PO 300 mg HS ZAIRA Administration Heparin Sodium (Porcine) 5,000 unit 09/14/19 22:00 09/16/19 13:39 Heparin - SQ 5,000 unit TID ZAIR[facility] Administration Morphine Sulfate 20 mg 09/10/19 02:37 09/16/19 02:45 Morphine 10 Mg/5 Ml Liquid PO 20 mg Q4H PRN Administration PAIN LEVEL 6-10 Senna 2 tab 09/10/19 01:01 09/12/19 08:35 Senna - PO 2 tab HS PRN Administration CONSTIPATION Tamsulosin HCl 0.4 mg 09/13/19 10:00 09/16/19 09:40 Flomax - PO 0.4 mg DAILY@0830 [facility] Administration ASSESSMENT/PLAN: 64 y/o/m with a PMHx of COPD, Right lung adenocarcinoma (no chemo/rads/ surgery) , 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 #UTI s/p failed outpatient antibiotic therapy with Levaquin - UA positive for UTI. Cultures negative for growth WBC downtrending, patient remains afebrile. - Patient with hx of self catheterizations, neurogenic bladder - Meropenum discontinued. ID recommendations appreciated (Dr. Porter) - Urology consulted, Dr. Duke. Brambila catheter in place - Dr. Hicks to see patient today. Will follow recs. Patient now not amenable to go home with brambila or suprapubic cath - Tamsulosin, with Hiprex and Vitamin C on discharge - Bladder scan and straight cath orders canceled. If patient needs to be straight cathed overnight, would just place indwelling brambila - Started on Gabapentin 300 QHs for progressing neuropathy #COPD - Currently not in exacerbation - Not on any COPD medications at home - DuoNebs PRN #Adenocarcinoma right upper lung lobe - Out-patient hematology/oncology follow up recommended - Heme/onc consulted - not a candidate for immunotherapy or EGFR inhibitor. poor candidate for chemo - patient states he does not want treatment for lung mass - no need for flow studies #FEN - No IV fluids indicated - monitor and replete lytes as needed - Regular diet #Prophylaxis - Lovenox 40mg subq daily #Disposition - brambila cath overnight if needed Visit type - Emergency Visit Emergency Visit: Yes ED Registration Date: 09/09/19 Care time: The patient presented to the Emergency Department on the above date and was hospitalized for further evaluation of their emergent condition. - New Patient This patient is new to me today: No - Critical Care Critical Care patient: No ATTENDING PHYSICIAN STATEMENT I saw and evaluated the patient. I reviewed the resident's note and discussed the case with the resident. I agree with the resident's findings and plan as documented. SUBJECTIVE: OBJECTIVE: ASSESSMENT AND PLAN:
--- NOTE | 2019-09-16 19:19 | PN ---
Progress Note (short form) - Note Progress Note: Events course noted I spoke to patient about what seems to be his inability to empty but he is not convinced that he needs an indwelling catheter nor is he willing to resume uintermittent self cath I think he may need to be discharged without brambila but kept on either an antibiotic for a few days or maintained on Hiprex 1 gm BID and Vit C 1gm BID It is likely he will be readmitted with infection and I told him so . he said if vthat happened he would reconsider his decision. Would also make sure that he also is discharged and kept on tamsulosin though it will only be of limited benefit b/o his neurogenic bladder.
--- NOTE | 2019-09-16 19:27 | PN ---
Teaching Attending Note Name of Resident: Jessie Moses ATTENDING PHYSICIAN STATEMENT I saw and evaluated the patient. I reviewed the resident's note and discussed the case with the resident. I agree with the resident's findings and plan as documented. SUBJECTIVE: Patient with notable postvoid residual volume but refuses Sharp or suprapubic tube, has capacity incompetence with noted restricted insight to clinical condition. Consistent with prior presentations. He refused to sign any documentation stating that he would not want the tube, stating that maybe he would want it, and then refuses the procedure saying that we are not Dr. Vincent and we do not know. When we informed him that the procedure is a neurologic issue, he will say that he would not want it under any circumstances but does not want to restrict himself from getting it in case he wants to have the option. He says he knows he can get a significant infection from this and he states what is the difference I am going to anyway 10 item review of systems completed and is negative aside from history of present illness OBJECTIVE: VS, labs, imaging reviewed NAD, AAO, resting comfortably in bed. RRR s1/2 no mgr Normal muscle tone, Musculoskeletal exam consistent with history of paraplegia Neck is supple, trachea midline, no donell LN Lungs CTAB with sym expansion NT ND +BS no donell organomegaly CN2-12 wnl; no FND NC AT EOMI PERRLA Depressed mood, flat affect, restricted insight but apparent capacity Urine culture reviewed, no fevers, ASSESSMENT/PLAN: Patient remains off antibiotics, hemodynamically stable. ID continue these with plan. Pending further discussion with urology. If the patient does not wish to have Sharp placed, he will need to document his wishes in an appropriate manner and can be discharged home with a [place] catheter. If he is not willing or able to document his wishes then we will consult psychiatry to ensure competency and capacity and the patient will have their care delineated as per the recommendations of the subspecialty services Problems: -Urinary retention -Suspected urinary tract infection, follow-up final microbiology. Negative so far, WBC is downtrending, patient is afebrile and clinically stable. 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 -Adenocarcinoma of the right upper lobe, follow-up hematology and oncology consultation. -COPD history, gold class unknown. Not currently in any exacerbation. PRN albuterol with outpatient pulmonary function tests planned. 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 Pain is controlled with no further issues. Full Code
--- NOTE | 2019-09-16 19:59 | PN ---
Progress Note (short form) - Note Progress Note: Patient seen and examined Last Vital Signs Temp Pulse Resp BP Pulse Ox 98.8 F 86 18 107/61 95 09/16/19 15:41 09/16/19 15:41 09/16/19 15:41 09/16/19 15:41 09/16/19 09:00 Cor: RSR, No murmurs, No gallops Lungs: Clear to P&A Abd: Soft, Normal bowel sounds, No organomegaly Ext:No significant edema Labs/Meds reviewed A/P
[2019-09-16] MEDS: GABAPENTIN 300 MG CAPSULE (FP) PO SCH (22:41)
[2019-09-17] MEDS: morphine SULFATE 10 MG/5 ML UNIT-DOSE CUP PO PRN ×3 (03:08→17:53)
[2019-09-17] MEDS ORDERED: MAGNESIUM CITRATE 300 ML BOTTLE PO ONE (04:30)
[2019-09-17] MEDS: HEPARIN NA (PORCINE) 5,000 UNITS/ML 1ML VIAL SQ SCH ×3 (05:10→21:03)
[2019-09-17 07:13] LABS: HEMATOCRIT 37.6 % (35.4-49); HEMOGLOBIN 12.5 GM/dL (11.7-16.9); MCH 29.3 pg (25.7-33.7); MCHC 33.2 g/dl (32.0-35.9); MEAN CELL VOLUME 88.2 fl (80-96); MEAN PLT VOLUME 9.4 fl (7.5-11.1); PLATELET COUNT 497 K/MM3 (134-434); RBC 4.26 M/mm3 (4.00-5.60); RDW 17.3 % (11.9-15.9); WHITE BLOOD COUNT 9.5 K/mm3 (4.0-10.0)
[2019-09-17 07:38] LABS: ALBUMIN 2.4 g/dl (3.4-5.0); BILIRUBIN,TOTAL 0.2 mg/dL (0.2-1); BLOOD UREA NITROGEN 9.4 mg/dL (7-18); CALCIUM 8.5 mg/dL (8.5-10.1); CREATININE 0.5 mg/dL (0.55-1.3); POTASSIUM 4.3 mmol/L (3.5-5.1)
[2019-09-17] MEDS: TAMSULOSIN HCL 0.4 MG CAP PO SCH (09:10)
--- NOTE | 2019-09-17 09:32 | PN ---
Progress Note, Physician History of Present Illness: stable no new issues - Current Medication List Current Medications: Active Medications Acetaminophen (Tylenol -) 650 mg PO Q4H PRN PRN Reason: PAIN LEVEL 6-10 Albuterol/Ipratropium (Duoneb -) 1 amp NEB Q6H PRN PRN Reason: SHORTNESS OF BREATH Docusate Sodium (Colace -) 100 mg PO BID PRN PRN Reason: CONSTIPATION Last Admin: 09/12/19 08:35 Dose: 100 mg Gabapentin (Neurontin -) 300 mg PO HS [facility] Last Admin: 09/16/19 22:41 Dose: 300 mg Heparin Sodium (Porcine) (Heparin -) 5,000 unit SQ TID [facility] Last Admin: 09/17/19 05:10 Dose: 5,000 unit Morphine Sulfate (Morphine 10 Mg/5 Ml Liquid) 20 mg PO Q4H PRN PRN Reason: PAIN LEVEL 6-10 Last Admin: 09/17/19 09:20 Dose: 20 mg Senna (Senna -) 2 tab PO HS PRN PRN Reason: CONSTIPATION Last Admin: 09/12/19 08:35 Dose: 2 tab Tamsulosin HCl (Flomax -) 0.4 mg PO DAILY@0830 [facility] Last Admin: 09/17/19 09:10 Dose: 0.4 mg - Objective Vital Signs: Vital Signs Temperature 98 F 09/16/19 22:00 Pulse Rate 92 H 09/16/19 22:00 Respiratory Rate 18 09/16/19 22:00 Blood Pressure 112/52 L 09/16/19 22:00 O2 Sat by Pulse Oximetry (%) 95 09/16/19 21:00 Constitutional: Yes: No Distress, Calm Cardiovascular: Yes: S1, S2 Respiratory: Yes: Regular, CTA Bilaterally Gastrointestinal: Yes: Normal Bowel Sounds, Soft Genitourinary: Yes: Sharp Present Musculoskeletal: Yes: WNL Extremities: Yes: WNL Neurological: Yes: Alert, Oriented Psychiatric: Yes: Alert, Oriented Labs: CBC, BMP 09/17/19 06:20 09/17/19 06:20 Assessment/Plan 64 year old man with a PMH of COPD, R lung adenocarcinoma (no chemo/rads/ surgery), 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 , Neurogenic bladder, Recurrent UTIs, Hypotension, Problem List - Problems (1) UTI (urinary tract infection) Code(s): N39.0 - URINARY TRACT INFECTION, SITE NOT SPECIFIED Qualifiers: Urinary tract infection type: site unspecified Hematuria presence: without hematuria Qualified Code(s): N39.0 - Urinary tract infection, site not specified (2) Adenocarcinoma of right lung Code(s): C34.91 - MALIGNANT NEOPLASM OF UNSP PART OF RIGHT BRONCHUS OR LUNG (3) Neurogenic bladder Code(s): N31.9 - NEUROMUSCULAR DYSFUNCTION OF BLADDER, UNSPECIFIED (4) Paraplegia Code(s): G82.20 - PARAPLEGIA, UNSPECIFIED (5) Leukocytosis Code(s): D72.829 - ELEVATED WHITE BLOOD CELL COUNT, UNSPECIFIED (6) Tibia/fibula fracture Code(s): S82.209A - UNSP FRACTURE OF SHAFT OF UNSP TIBIA, INIT FOR CLOS FX; S82.409A - UNSP FRACTURE OF SHAFT OF UNSP FIBULA, INIT FOR CLOS FX Qualifiers: Encounter type: initial encounter Fracture type: closed Laterality: left Qualified Code(s): S82.202A - Unspecified fracture of shaft of left tibia, initial encounter for closed fracture; S82.402A - Unspecified fracture of shaft of left fibula, initial encounter for closed fracture Assessment/Plan Leukocytosis Urinary retention Hematuria Paraplegia s/p spinal cord transection Rt lung AdenoCA plan continue current mgmt stable
--- NOTE | 2019-09-17 14:50 | PN ---
Teaching Attending Note Name of Resident: Jessie Moses ATTENDING PHYSICIAN STATEMENT I saw and evaluated the patient. I reviewed the resident's note and discussed the case with the resident. I agree with the resident's findings and plan as documented. Seen and examined; please see resident note for further historical information. I personally verified all fischer historical information and exam findings. Personally interpreted all imaging and diagnostics and reviewed appropriate consults. I reviewed all labs and vital signs as per resident note and EMR as documented. I agree with the above assessment and plan unless supplemented by myself in the following. Patient was noted to have urinary retention overnight and had Brambila catheter placed. He is not willing to speak with me or be examined this morning. Hiprex noted. 10 system review of systems completed and is negative aside from history of present illness Problems: -Urinary retention, now agreeable to DC with brambila and arranging for home services. -Suspected urinary tract infection, follow-up final microbiology. Negative so far, WBC is downtrending, patient is afebrile and clinically stable. 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 -Adenocarcinoma of the right upper lobe, follow-up hematology and oncology consultation. -COPD history, gold class unknown. Not currently in any exacerbation. PRN albuterol with outpatient pulmonary function tests planned. 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 Pain is controlled with no further issues. Full Code
--- NOTE | 2019-09-17 15:50 | DS ---
Physical Exam: SUBJECTIVE: Patient seen and examined. Required brambila placement overnight for discomfort. Patient agreeable for discharge with brambila at this time due to multiple failed TOVs. Explained to him that a follow up appointment has been made for him with Dr. Duke's office on 10/01. OBJECTIVE: Vital Signs Period Temp Pulse Resp BP Sys/Roche Pulse Ox Last 24 Hr 97.8 F-98.7 F 86-92 18-18 92-112/52-56 94-95 PHYSICAL EXAM GENERAL: The patient is awake, alert, and fully oriented, in no acute distress. HEAD: Normal with no signs of trauma. EYES: EOMI, no scleral icterus, no ptosis ENT: MMM NECK: Trachea midline, full range of motion, supple. LUNGS: CTA B/L, no wheezes, no crackles, no accessory muscle use. HEART: Regular rate and rhythm, S1, S2 without murmur, rub or gallop. ABDOMEN: Soft, nondistended, normoactive bowel sounds, no guarding, no rebound, no hepatosplenomegaly, no masses. : condom cath in place EXTREMITIES: 2+ pulses, warm, well-perfused. Right wrist fused. emaciated lower extremities. NEUROLOGICAL: Normal speech, gait not observed. PSYCH: Normal mood, normal affect. SKIN: Warm, dry, normal turgor, no rashes or lesions noted LABS Laboratory Results - last 24 hr 09/17/19 09/17/19 06:20 06:20 WBC 9.5 RBC 4.26 Hgb 12.5 Hct 37.6 MCV 88.2 MCH 29.3 MCHC 33.2 RDW 17.3 H Plt Count 497 H MPV 9.4 Sodium 136 Potassium 4.3 Chloride 100 Carbon Dioxide 29 Anion Gap 6 L BUN 9.4 Creatinine 0.5 L Est GFR (CKD-EPI)AfAm 130.88 Est GFR (CKD-EPI)NonAf 112.92 Random Glucose 86 Calcium 8.5 Total Bilirubin 0.2 AST 11 L ALT 12 L Alkaline Phosphatase 87 Total Protein 6.0 L Albumin 2.4 L HOSPITAL COURSE: Date of Admission:09/09/19 Date of Discharge: 09/17/19 64 y/o/m with a PMHx of COPD, Right lung adenocarcinoma (no chemo/rads/ surgery) , 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 Patient treated for UTI on admission with Meropenem which was then discontinued. Seen by Dr. Duke who recommended starting the patient on Tamsulosin and doing a TOV after removing brambila. Patient still retaining urine at this time despite multiple TOV attempts. Patient reluctant to straight cath himself at home and felt confident that he would be able to urinate on his own if sent home with just a condom cath. Explained to patient that he failed multiple attempts at TOV and patient finally agreed to go home with brambila and with follow up arranaged at Dr. Duke' s office for 10/01. Started on patient on Hiprex and Vitamin for prophylaxis against future UTIs as per Dr. Duke recommendations. Started patient on Gabapentin for worsening neuropathy 2/2 paraplegia. Seen by hematology/oncology while admitted for adenocarcinoma of the lung, patient not a candidant for immunotherapy or EGFR inhibitor, poor candidate for chemo. Patient denied wanting treatment at this time. Recommended to follow up with Dr. Chambers as outpatient if he would like further options regarding treatment. Patient agreeable to discharge home with brambila and with follow up arranged for 10/01. Minutes to complete discharge: 36 Discharge Summary Problems reviewed: Yes Reason For Visit: URINARY TRACK INFECTION Condition: Stable - Instructions Diet, Activity, Other Instructions: You were admitted to hospital for treatment of urinary tract infection. You were evaluated by infectious disease physician and treated with antibiotics. You are stable for discharge home. You will be discharged with a brambila catheter as you are retaining urine at this time. Please keep the brambila catheter site clean and dry until you follow up with your Urologist. You were seen by Hematology/Oncology for your lung mass however you stated that you did not want any treatment at this time but a referral will be included for you if you would like further evaluation and treatment options. Medication changes: 1. START Tamsulosin 0.4mg once daily to help decrease urinary retention 2. START taking Hiprex 1gram twice daily as this will help fight against recurrent urinary tract infections. 3. START taking Vitamin C 1gram twice a day as this will help fight against urinary tract infections. 4. START taking Gabapentin 300m once daily at night for your worsening neuropathy. Continue taking your home medications as directed. Follow up: 1. Follow up with your primary care physician within one-two days after discharge. A referral has been provided. 2. Follow up with your Urologist, an appointment has been made for you on October 01, [address] Duke at his clinic in [place] at [address] [place] [address] [address], [place] [address]. Discuss further maintenance of your brambila catheter at your follow up appointment. 3. Follow up with Hematology/Oncology after discharge regarding your right lung mass (adenocarcinoma) for further evaluation and treatment. Return to the nearest Emergency Department if you experience worsening symptoms , subjective fevers, chills, shortness of breath, chest pain, palpitations, abdominal pain, nausea vomiting, diarrhea, painful urination, worsening bleeding with urination, or any trauma. Referrals: Scot Duke MD [Staff Physician] - Juan Manuel Kang MD [Primary Care Provider] - Zheng Chambers MD [Staff Physician] - Disposition: HOME - Home Medications Comprehensive Discharge Medication List: Ambulatory Orders Diazepam [Valium] 10 mg PO TID PRN tablet MDD 30mg 06/17/18 Morphine 10 mg/5 ml Liquid [Morphine 10 mg/5 mL Liquid -] 20 mg PO Q4H MDD 60mg 06/14/19 Ascorbic Acid [Vitamin C -] 1,000 mg PO BID 30 Days #120 tablet 09/17/19 Gabapentin [Neurontin -] 300 mg PO HS 30 Days #30 capsule 09/17/19 Methenamine Hippurate [Hiprex [Nf] -] 1 gm PO BID 30 Days #60 tablet 09/17/19 Tamsulosin HCl [Flomax -] 0.4 mg PO DAILY@0830 30 Days #30 cap.er.24h 09/17/19 This patient is new to me today: Yes Date on this admission: 09/18/19 Emergency Visit: No Critical Care patient: No - Discharge Referral Referred to [facility] Med P.C.: No ATTENDING PHYSICIAN STATEMENT I saw and evaluated the patient. I reviewed the resident's note and discussed the case with the resident. I agree with the resident's findings and plan as documented. SUBJECTIVE: OBJECTIVE: ASSESSMENT AND PLAN:
--- NOTE | 2019-09-17 15:57 | PATH ---
Surgical Pathology Report Patient Name: LORELEI MARVIN [facility]. Rec. #: [id number] /Age/Gender: 1955 (Age: 64) / M Account: [id number] Location: [facility] MED/SURG Taken: 09/15/2019 Received: 09/15/2019 Reported: 09/17/2019 Physicians: Zheng Chambers M.D. Specimen(s) Received PERIPHERAL BLOOD Clinical History Leukocytosis Final Diagnosis COMPREHENSIVE FLOW PANEL performed and interpreted at [place], [place] ([id number]) shows the following: INTERPRETATION: No atypical flow cytometric findings seen. Phenotype: Lymphocytes include polyclonal B cells, NK cells and immunophenotypically normal CD4+ and CD8+ T cells in normal proportions. No evidence of a clonal lymphoid expansion. Granulocytes are immunophenotypically mature. MYELOPROLIFERATIVE NEOPLASM FISH PANEL performed and interpreted at [place], [place] ([id number]) shows the following: INTERPRETATION: No evidence of deletion 7q or monosomy 7 is present. No evidence of trisomy 8 (+8) is present. No evidence of deletion 20q12 is present. No BCR/ABL1 t(9;22) translocation is detected. See [facility] reports for additional details. Electronically Signed Mima Lee M.D. Addendum Reported: 09/20/2019 Addendum Diagnosis COMPREHENSIVE FLOW PANEL performed and interpreted at [place], [place] ([id number]) shows the following: INTERPRETATION: No atypical flow cytometric findings seen. Phenotype: Lymphocytes include polyclonal B cells, NK cells and immunophenotypically normal CD4+ and CD8+ T cells in normal proportions. No evidence of a clonal lymphoid expansion. Granulocytes are immunophenotypically mature. Cytomorphology: Smears from flow sample show no increase in myeloblasts or atypical lymphocytes. MYELOPROLIFERATIVE NEOPLASM FISH PANEL performed and interpreted at [place], [place] ([id number]) shows the following: INTERPRETATION: No evidence of deletion 7q or monosomy 7 is present. No evidence of trisomy 8 (+8) is present. No evidence of deletion 20q12 is present. No BCR/ABL1 t(9;22) translocation is detected. See [facility] report for additional details. Mima Lee M.D. Gross Description Received are 4 green top tubes of peripheral blood which are sent to [facility]. 09/15/2019 saudi09/15/2019
[2019-09-17] MEDS: GABAPENTIN 300 MG CAPSULE (FP) PO SCH (21:03)
[2019-09-18] MEDS: morphine SULFATE 10 MG/5 ML UNIT-DOSE CUP PO PRN ×3 (01:00→22:53)
[2019-09-18] MEDS: HEPARIN NA (PORCINE) 5,000 UNITS/ML 1ML VIAL SQ SCH ×3 (06:26→22:53)
[2019-09-18] MEDS: TAMSULOSIN HCL 0.4 MG CAP PO SCH (09:10)
--- NOTE | 2019-09-18 10:03 | PN ---
Progress Note, Physician History of Present Illness: no new issues - Current Medication List Current Medications: Active Medications Acetaminophen (Tylenol -) 650 mg PO Q4H PRN PRN Reason: PAIN LEVEL 6-10 Albuterol/Ipratropium (Duoneb -) 1 amp NEB Q6H PRN PRN Reason: SHORTNESS OF BREATH Docusate Sodium (Colace -) 100 mg PO BID PRN PRN Reason: CONSTIPATION Last Admin: 09/12/19 08:35 Dose: 100 mg Gabapentin (Neurontin -) 300 mg PO HS [facility] Last Admin: 09/17/19 21:03 Dose: 300 mg Heparin Sodium (Porcine) (Heparin -) 5,000 unit SQ TID [facility] Last Admin: 09/18/19 06:26 Dose: 5,000 unit Morphine Sulfate (Morphine 10 Mg/5 Ml Liquid) 20 mg PO Q4H PRN PRN Reason: PAIN LEVEL 6-10 Last Admin: 09/18/19 01:00 Dose: 20 mg Senna (Senna -) 2 tab PO HS PRN PRN Reason: CONSTIPATION Last Admin: 09/12/19 08:35 Dose: 2 tab Tamsulosin HCl (Flomax -) 0.4 mg PO DAILY@0830 [facility] Last Admin: 09/18/19 09:10 Dose: 0.4 mg - Objective Vital Signs: Vital Signs Temperature 98.9 F 09/18/19 05:41 Pulse Rate 82 09/18/19 05:41 Respiratory Rate 18 09/18/19 05:41 Blood Pressure 116/57 L 09/18/19 05:41 O2 Sat by Pulse Oximetry (%) 95 09/17/19 21:00 Constitutional: Yes: No Distress, Calm Cardiovascular: Yes: S1, S2 Respiratory: Yes: Regular, CTA Bilaterally Gastrointestinal: Yes: Normal Bowel Sounds, Soft Musculoskeletal: Yes: WNL Extremities: Yes: Other Neurological: Yes: Alert, Oriented Psychiatric: Yes: Alert, Oriented Labs: CBC, BMP 09/17/19 06:20 09/17/19 06:20 Assessment/Plan 64 year old man with a PMH of COPD, R lung adenocarcinoma (no chemo/rads/ surgery), 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 , Neurogenic bladder, Recurrent UTIs, Hypotension, Problem List - Problems (1) UTI (urinary tract infection) Code(s): N39.0 - URINARY TRACT INFECTION, SITE NOT SPECIFIED Qualifiers: Urinary tract infection type: site unspecified Hematuria presence: without hematuria Qualified Code(s): N39.0 - Urinary tract infection, site not specified (2) Adenocarcinoma of right lung Code(s): C34.91 - MALIGNANT NEOPLASM OF UNSP PART OF RIGHT BRONCHUS OR LUNG (3) Neurogenic bladder Code(s): N31.9 - NEUROMUSCULAR DYSFUNCTION OF BLADDER, UNSPECIFIED (4) Paraplegia Code(s): G82.20 - PARAPLEGIA, UNSPECIFIED (5) Leukocytosis Code(s): D72.829 - ELEVATED WHITE BLOOD CELL COUNT, UNSPECIFIED (6) Tibia/fibula fracture Code(s): S82.209A - UNSP FRACTURE OF SHAFT OF UNSP TIBIA, INIT FOR CLOS FX; S82.409A - UNSP FRACTURE OF SHAFT OF UNSP FIBULA, INIT FOR CLOS FX Qualifiers: Encounter type: initial encounter Fracture type: closed Laterality: left Qualified Code(s): S82.202A - Unspecified fracture of shaft of left tibia, initial encounter for closed fracture; S82.402A - Unspecified fracture of shaft of left fibula, initial encounter for closed fracture Assessment/Plan Leukocytosis Urinary retention Hematuria Paraplegia s/p spinal cord transection Rt lung AdenoCA plan continue current mgmt stable
--- NOTE | 2019-09-18 13:53 | PN ---
Physical Exam: SUBJECTIVE: Patient seen and examined. He has no complaints. OBJECTIVE: Vital Signs Period Temp Pulse Resp BP Sys/Roche Pulse Ox Last 24 Hr 98.3 F-98.9 F 77-88 18-18 90-116/49-66 94-95 GENERAL: The patient is awake, alert, and fully oriented, in no acute distress. LUNGS: Breath sounds equal, clear to auscultation bilaterally, no wheezes, no crackles, no accessory muscle use. HEART: Regular rate and rhythm, S1, S2 without murmur, rub or gallop. ABDOMEN: Soft, nontender, nondistended, normoactive bowel sounds, no guarding, no rebound, no hepatosplenomegaly, no masses. EXTREMITIES: 2+ pulses, warm, well-perfused, no edema, atrophy of leg muscles. Active Medications Generic Name Dose Route Start Last Admin Trade Name Freq PRN Reason Stop Dose Admin Acetaminophen 650 mg 09/10/19 01:01 Tylenol - PO Q4H PRN PAIN LEVEL 6-10 Albuterol/Ipratropium 1 amp 09/11/19 14:47 Duoneb - NEB Q6H PRN SHORTNESS OF BREATH Docusate Sodium 100 mg 09/10/19 01:01 09/12/19 08:35 Colace - PO 100 mg BID PRN Administration CONSTIPATION Gabapentin 300 mg 09/15/19 22:00 09/17/19 21:03 Neurontin - PO 300 mg HS [facility] Administration Heparin Sodium (Porcine) 5,000 unit 09/14/19 22:00 09/18/19 13:43 Heparin - SQ 5,000 unit TID [facility] Administration Morphine Sulfate 20 mg 09/10/19 02:37 09/18/19 01:00 Morphine 10 Mg/5 Ml Liquid PO 20 mg Q4H PRN Administration PAIN LEVEL 6-10 Senna 2 tab 09/10/19 01:01 09/12/19 08:35 Senna - PO 2 tab HS PRN Administration CONSTIPATION Tamsulosin HCl 0.4 mg 09/13/19 10:00 09/18/19 09:10 Flomax - PO 0.4 mg DAILY@0830 [facility] Administration ASSESSMENT/PLAN: This is a 64 year old man with a history of COPD, PAF, lung adenocarcinoma, anxiety, 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 1. UTI, recurrent - Completed course of Levaquin as outpatient - Urine culture negative - Meropenem discontinued - Plan to start Hiprex at discharge 2. Neurogenic bladder with urinary retention - Patient does self-catheterization at home and is refusing suprapubic catheter, Sharp catheter - Continue Flomax 3. COPD - Stable 4. Lung adenocarcinoma - Patient has refused treatment 5. Paraplegia secondary to spinal cord transection - Continue Neurontin 6. Paroxysmal atrial fib - Currently in sinus rhythm 7. Anxiety 8. Chronic bilateral iliac artery occlusion 9. Disposition - Discharge home once services resumed Visit type - Emergency Visit Emergency Visit: Yes ED Registration Date: 09/09/19 Care time: The patient presented to the Emergency Department on the above date and was hospitalized for further evaluation of their emergent condition. - New Patient This patient is new to me today: Yes Date on this admission: 09/18/19 - Critical Care Critical Care patient: No - Discharge Referral Referred to [facility] Med P.C.: No
[2019-09-18] MEDS: GABAPENTIN 300 MG CAPSULE (FP) PO SCH (22:53)
[2019-09-18] MEDS: DOCUSATE SODIUM 100 MG CAPSULE (FP) PO PRN (23:02)
[2019-09-19] MEDS: morphine SULFATE 10 MG/5 ML UNIT-DOSE CUP PO PRN ×3 (04:03→13:46)
[2019-09-19] MEDS: HEPARIN NA (PORCINE) 5,000 UNITS/ML 1ML VIAL SQ SCH ×2 (06:03→14:00)
--- NOTE | 2019-09-19 08:22 | PN ---
Teaching Attending Note Name of Resident: Abdirizak White ATTENDING PHYSICIAN STATEMENT I saw and evaluated the patient. I reviewed the resident's note and discussed the case with the resident. I agree with the resident's findings and plan as documented. Seen and examined; please see resident note for further historical information. I personally verified all fischer historical information and exam findings. Personally interpreted all imaging and diagnostics and reviewed appropriate consults. I reviewed all labs and vital signs as per resident note and EMR as documented. I agree with the above assessment and plan unless supplemented by myself in the following. Pending home services was the issue for delayed discharge, symptoms remain improved, hemodynamically stable. 10 item review of systems was completed and is negative aside from history of present illness VS, labs, imaging reviewed NAD, AAO, resting comfortably in bed. RRR s1/2 no mgr Baseline paraplegia noted Neck is supple, trachea midline, no donell LN Lungs CTAB with sym expansion NT ND +BS no donell organomegaly CN2-12 wnl; no FND NC AT EOMI PERRLA Normal mood, appropriate behavior, euthymic affect No skin breakdown or rashes noted Assessment and plan: Problems: -Urinary retention, now agreeable to DC with brambila and arranging for home services. Abx per ID. DC planning completed friday; pending home services. -Suspected urinary tract infection, follow-up final microbiology. Negative so far, WBC is downtrending, patient is afebrile and clinically stable. 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 -Adenocarcinoma of the right upper lobe, follow-up hematology and oncology consultation. -COPD history, gold class unknown. Not currently in any exacerbation. PRN albuterol with outpatient pulmonary function tests planned. 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 Pain is controlled with no further issues. Patient informs me that he has his home care nurses phone number. If his home care nurse is able to be reached and he is agreeable, the patient will be able to be discharged home today with a scheduled follow-up. Full Code
[2019-09-19] MEDS: TAMSULOSIN HCL 0.4 MG CAP PO SCH (09:21)
--- NOTE | 2019-09-19 11:56 | PN ---
<Alcon Whitef - Last Filed: 09/19/19 16:43> Physical Exam: SUBJECTIVE: Patient seen and examined at bedside. Denies acute complaints. Eager to go home. OBJECTIVE: Vital Signs Period Temp Pulse Resp BP Sys/Roche Pulse Ox Last 24 Hr 97.8 F-97.9 F 61-85 17-20 94-143/47-70 94-96 GENERAL: The patient is awake, alert, and fully oriented, in no acute distress. HEAD: Normal with no signs of trauma. EYES: PERRL, extraocular movements intact, sclera anicteric, conjunctiva clear. No ptosis. ENT: Oropharynx clear without exudates, moist mucous membranes. NECK: Trachea midline, full range of motion, supple. LUNGS: Breath sounds equal, clear to auscultation bilaterally, no wheezes, no crackles, no accessory muscle use. HEART: Regular rate and rhythm, S1, S2 without murmur, rub or gallop. ABDOMEN: Soft, nontender, nondistended, normoactive bowel sounds, no guarding, no rebound, no hepatosplenomegaly, no masses. GENITOURINARY- Sharp catheter in situ, draining clear urine. EXTREMITIES: 2+ pulses, warm, well-perfused, no edema. NEUROLOGICAL: Cranial nerves II through XII grossly intact. Normal speech, gait not observed. PSYCH: Normal mood, normal affect. SKIN: Warm, dry, normal turgor, no rashes or lesions noted Active Medications Generic Name Dose Route Start Last Admin Trade Name Freq PRN Reason Stop Dose Admin Acetaminophen 650 mg 09/10/19 01:01 Tylenol - PO Q4H PRN PAIN LEVEL 6-10 Albuterol/Ipratropium 1 amp 09/11/19 14:47 Duoneb - NEB Q6H PRN SHORTNESS OF BREATH Docusate Sodium 100 mg 09/10/19 01:01 09/18/19 23:02 Colace - PO 100 mg BID PRN Administration CONSTIPATION Gabapentin 300 mg 09/15/19 22:00 09/18/19 22:53 Neurontin - PO 300 mg HS [facility] Administration Heparin Sodium (Porcine) 5,000 unit 09/14/19 22:00 09/19/19 06:03 Heparin - SQ 5,000 unit TID [facility] Administration Morphine Sulfate 20 mg 09/10/19 02:37 09/19/19 09:22 Morphine 10 Mg/5 Ml Liquid PO 20 mg Q4H PRN Administration PAIN LEVEL 6-10 Senna 2 tab 09/10/19 01:01 09/12/19 08:35 Senna - PO 2 tab HS PRN Administration CONSTIPATION Tamsulosin HCl 0.4 mg 09/13/19 10:00 09/19/19 09:21 Flomax - PO 0.4 mg DAILY@0830 [facility] Administration ASSESSMENT/PLAN: 64 y/o/m with a PMHx of COPD, Right lung adenocarcinoma (no chemo/rads/ surgery) , 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 UTI s/p failed outpatient antibiotic therapy with Levaquin - Patient with hx of self catheterizations, neurogenic bladder - Meropenum discontinued. ID recommendations appreciated (Dr. Salazar) appreciated - Urology consulted, Dr. Duke. Sharp catheter in place. Patient with outpatient follow up confirmed. COPD - Current not in exacerbation - Not on any COPD medications at home - DuoNebs PRN Adenocarcinoma right upper lung lobe - Out-patient hematology/oncology follow up recommended FEN - No IV fluids indicated. - monitor and replete lytes as needed - Regular diet Prophylaxis - Lovenox 40mg subq daiily Disposition - Patient discharge today, with home health aide ervices reinstated. Please see DC summary from 09/17 for further details. Visit type - Emergency Visit Emergency Visit: Yes ED Registration Date: 09/09/19 Care time: The patient presented to the Emergency Department on the above date and was hospitalized for further evaluation of their emergent condition. - New Patient This patient is new to me today: No - Critical Care Critical Care patient: No - Discharge Referral Referred to [facility] Med P.C.: No ATTENDING PHYSICIAN STATEMENT I saw and evaluated the patient. I reviewed the resident's note and discussed the case with the resident. I agree with the resident's findings and plan as documented. SUBJECTIVE: OBJECTIVE: ASSESSMENT AND PLAN: <David Champion - Last Filed: 09/19/19 17:09> Physical Exam: SUBJECTIVE: Patient seen and examined OBJECTIVE: Vital Signs Period Temp Pulse Resp BP Sys/Roche Pulse Ox Last 24 Hr 97.8 F-98.7 F 61-85 17-20 94-143/47-60 94-96 GENERAL: The patient is awake, alert, and fully oriented, in no acute distress. HEAD: Normal with no signs of trauma. EYES: PERRL, extraocular movements intact, sclera anicteric, conjunctiva clear. No ptosis. ENT: Ears normal, nares patent, oropharynx clear without exudates, moist mucous membranes. NECK: Trachea midline, full range of motion, supple. LUNGS: Breath sounds equal, clear to auscultation bilaterally, no wheezes, no crackles, no accessory muscle use. HEART: Regular rate and rhythm, S1, S2 without murmur, rub or gallop. ABDOMEN: Soft, nontender, nondistended, normoactive bowel sounds, no guarding, no rebound, no hepatosplenomegaly, no masses. EXTREMITIES: 2+ pulses, warm, well-perfused, no edema. NEUROLOGICAL: Cranial nerves II through XII grossly intact. Normal speech, gait not observed. PSYCH: Normal mood, normal affect. SKIN: Warm, dry, normal turgor, no rashes or lesions noted ASSESSMENT/PLAN: ATTENDING PHYSICIAN STATEMENT I saw and evaluated the patient. I reviewed the resident's note and discussed the case with the resident. I agree with the resident's findings and plan as documented. SUBJECTIVE: OBJECTIVE: ASSESSMENT AND PLAN:
--- NOTE | 2019-09-19 12:40 | PN ---
Progress Note, Physician History of Present Illness: stable no new issues - Current Medication List Current Medications: Active Medications Acetaminophen (Tylenol -) 650 mg PO Q4H PRN PRN Reason: PAIN LEVEL 6-10 Albuterol/Ipratropium (Duoneb -) 1 amp NEB Q6H PRN PRN Reason: SHORTNESS OF BREATH Docusate Sodium (Colace -) 100 mg PO BID PRN PRN Reason: CONSTIPATION Last Admin: 09/18/19 23:02 Dose: 100 mg Gabapentin (Neurontin -) 300 mg PO HS [facility] Last Admin: 09/18/19 22:53 Dose: 300 mg Heparin Sodium (Porcine) (Heparin -) 5,000 unit SQ TID [facility] Last Admin: 09/19/19 06:03 Dose: 5,000 unit Morphine Sulfate (Morphine 10 Mg/5 Ml Liquid) 20 mg PO Q4H PRN PRN Reason: PAIN LEVEL 6-10 Last Admin: 09/19/19 09:22 Dose: 20 mg Senna (Senna -) 2 tab PO HS PRN PRN Reason: CONSTIPATION Last Admin: 09/12/19 08:35 Dose: 2 tab Tamsulosin HCl (Flomax -) 0.4 mg PO DAILY@0830 [facility] Last Admin: 09/19/19 09:21 Dose: 0.4 mg - Objective Vital Signs: Vital Signs Temperature 97.8 F 09/19/19 09:17 Pulse Rate 85 09/19/19 09:17 Respiratory Rate 18 09/19/19 09:17 Blood Pressure 94/47 L 09/19/19 09:17 O2 Sat by Pulse Oximetry (%) 96 09/19/19 09:00 Constitutional: Yes: No Distress, Calm Cardiovascular: Yes: S1, S2 Respiratory: Yes: Regular, CTA Bilaterally Gastrointestinal: Yes: Normal Bowel Sounds, Soft Musculoskeletal: Yes: Other Extremities: Yes: Other Neurological: Yes: Alert, Oriented Psychiatric: Yes: Alert, Oriented Labs: CBC, BMP 09/17/19 06:20 09/17/19 06:20 Assessment/Plan 64 year old man with a PMH of COPD, R lung adenocarcinoma (no chemo/rads/ surgery), 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 , Neurogenic bladder, Recurrent UTIs, Hypotension, Problem List - Problems (1) UTI (urinary tract infection) Code(s): N39.0 - URINARY TRACT INFECTION, SITE NOT SPECIFIED Qualifiers: Urinary tract infection type: site unspecified Hematuria presence: without hematuria Qualified Code(s): N39.0 - Urinary tract infection, site not specified (2) Adenocarcinoma of right lung Code(s): C34.91 - MALIGNANT NEOPLASM OF UNSP PART OF RIGHT BRONCHUS OR LUNG (3) Neurogenic bladder Code(s): N31.9 - NEUROMUSCULAR DYSFUNCTION OF BLADDER, UNSPECIFIED (4) Paraplegia Code(s): G82.20 - PARAPLEGIA, UNSPECIFIED (5) Leukocytosis Code(s): D72.829 - ELEVATED WHITE BLOOD CELL COUNT, UNSPECIFIED (6) Tibia/fibula fracture Code(s): S82.209A - UNSP FRACTURE OF SHAFT OF UNSP TIBIA, INIT FOR CLOS FX; S82.409A - UNSP FRACTURE OF SHAFT OF UNSP FIBULA, INIT FOR CLOS FX Qualifiers: Encounter type: initial encounter Fracture type: closed Laterality: left Qualified Code(s): S82.202A - Unspecified fracture of shaft of left tibia, initial encounter for closed fracture; S82.402A - Unspecified fracture of shaft of left fibula, initial encounter for closed fracture Assessment/Plan Leukocytosis Urinary retention Hematuria Paraplegia s/p spinal cord transection Rt lung AdenoCA plan continue current mgmt stable
[2019-09-19 14:55] VITALS: BP 108/50; PULSE 77; TEMP 98.7
== END 2019-09-19 15:10 | disposition home or self-care (01) | DRG 690 ==
LOC: JER 17:43 → JERBED 21:07 → J7W 23:16
PROVIDERS: ADMIT Internal Medicine; ATTEND Internal Medicine
DX: N39.0 Urinary tract infection, site not specified (principal); E87.1 Hypo-osmolality and hyponatremia; C34.90 Malignant neoplasm of unspecified part of unspecified bronchus or lung; E46 Unspecified protein-calorie malnutrition; G82.20 Paraplegia, unspecified; I74.5 Embolism and thrombosis of iliac artery; N31.9 Neuromuscular dysfunction of bladder, unspecified; K59.09 Other constipation; D72.829 Elevated white blood cell count, unspecified; E88.09 Other disorders of plasma-protein metabolism, not elsewhere classified; R33.9 Retention of urine, unspecified; J44.9 Chronic obstructive pulmonary disease, unspecified; G89.29 Other chronic pain; D47.3 Essential (hemorrhagic) thrombocythemia; I95.9 Hypotension, unspecified; S82.302G Unspecified fracture of lower end of left tibia, subsequent encounter for closed fracture with delayed healing; I48.0 Paroxysmal atrial fibrillation; F41.9 Anxiety disorder, unspecified
CPT/HCPCS: 36415; 71045-TC-FY; 76775-TC; 80048; 80053; 81003; 83735; 84100; 85025; 85027; 87040; 87086; 88300-TC; 93005; 93010; 97161-GP; 99282-25; 99284-25; J0131; J1644; J7030

== ENCOUNTER 2019-09-20 05:42 | Inpatient (IN) | payer OTHER, BC ==
[2019-09-20] MEDS ORDERED: ACETAMINOPHEN 325 MG TABLET (FP) PO ONE (07:21)
--- NOTE | 2019-09-20 07:22 | PDOC ---
History of Present Illness - General Chief Complaint: Urinary Problem Stated Complaint: PAIN Time Seen by Provider: 09/20/19 07:13 History Source: Patient Exam Limitations: No Limitations - History of Present Illness Initial Comments: Nikolas Valenzuela is a 64 yo M w a hx of COPD, Right lung adenocarcinoma (no chemo/ rads/ surgery), paraplegia secondary to spinal cord transection (T2-T4 in ) , neurogenic bladder, recurrent UTIs, and frequent hypotension who was discharged from the hospital yesterday afternoon with a brambila in place who returns to the ER with lower abdominal pain stating he believes his bladder is distended and not draining properly. He is here primarily because he has a burning pain which is not the same pain as his normal UTI pain. During the patient's prior admission he was treated with Meropenem which was then discontinued. He was seen by Dr. Duke who recommended starting the patient on Tamsulosin and doing a TOV after removing brambila. The patient retained urine despite multiple TOVs. He has a FU appt w Dr. Duke's office on 10/01. Seen by hematology/oncology while admitted for adenocarcinoma of the lung, patient not a candidant for immunotherapy or EGFR inhibitor, poor candidate for chemo. Patient denied wanting treatment at this time. Recommended to follow up with Dr. Chambers as outpatient if he would like further options regarding treatment. Uro: Dr. Duke PSH: Multiple orthopedic sx Social Hx: Former heavy smoker. 2PPD over 10-20 years but quit many years ago Allergies: Vacomycin PCP: Dr. Daniel Kang Past History - Past Medical History Allergies/Adverse Reactions: Allergies Allergy/AdvReac Type Severity Reaction Status Date / Time vancomycin Allergy Verified 09/20/19 05:45 Home Medications: Ambulatory Orders Diazepam [Valium] 10 mg PO TID PRN tablet MDD 30mg 06/17/18 Morphine 10 mg/5 ml Liquid [Morphine 10 mg/5 mL Liquid -] 20 mg PO Q4H MDD 60mg 06/14/19 Ascorbic Acid [Vitamin C -] 1,000 mg PO BID 30 Days #120 tablet 09/17/19 Gabapentin [Neurontin -] 300 mg PO HS 30 Days #30 capsule 09/17/19 Methenamine Hippurate [Hiprex [Nf] -] 1 gm PO BID 30 Days #60 tablet 09/17/19 Tamsulosin HCl [Flomax -] 0.4 mg PO DAILY@0830 30 Days #30 cap.er.24h 09/17/19 Anemia: No Asthma: No Cancer: No Cardiac Disorders: No CVA: No COPD: Yes CHF: No Dementia: No Diabetes: No GI Disorders: No Disorders: Yes (Recurrent UTI, 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) HTN: (Hypotension) Hypercholesterolemia: No Liver Disease: No Seizures: No Thyroid Disease: No - Surgical History Abdominal Surgery: No Appendectomy: No Cardiac Surgery: No Cholecystectomy: No Lung Surgery: No Neurologic Surgery: No Orthopedic Surgery: Yes (fracture right wrist s/p fusion) - Immunization History Td Vaccination: No Immunization Up to Date: No - Psycho Social/Smoking Cessation Hx Smoking Status: No Smoking History: Never smoked Years of Tobacco Use: 0 Have you smoked in the past 12 months: No Number of Cigarettes Smoked Daily: 3 If you are a former smoker, when did you quit?: 1985 Cigars Per Day: 0 Hx Alcohol Use: No Drug/Substance Use Hx: No Substance Use Type: None Hx Substance Use Treatment: No Review of Systems - Review of Systems Able to Perform ROS?: Yes Comments:: CONSTITUTIONAL: Present: Chills Absent: fever, no fatigue EYES: Absent: visual changes ENT: Absent: ear pain, no sore throat CARDIOVASCULAR: Absent: chest pain, no palpitations RESPIRATORY: Absent: cough, no SOB GI: Present: Abdominal pain, constipation Absent: no nausea, no vomiting, no diarrhea GENITOURINARY Absent: dysuria, no frequency, no hematuria MUSKULOSKELETAL: Absent: back pain, no arthralgia, no myalgia SKIN: Absent: rash NEURO: Absent: headache *Physical Exam - Vital Signs Last Vital Signs Temp Pulse Resp BP Pulse Ox 98.3 F 91 H 15 113/59 L 98 09/20/19 05:43 09/20/19 05:43 09/20/19 05:43 09/20/19 05:43 09/20/19 05:43 - Physical Exam GENERAL: Bed bound, cold, unhappy. Mild apparent distress. HEENT: Normocephalic, atraumatic. PERRL, EOM intact. CARDIOVASCULAR: Normal S1, S2. Regular rate and rhythm. PULMONARY: No evidence of respiratory distress. Lungs clear to auscultation bilaterally. No wheezing, rales or rhonchi. ABDOMEN: There is mild lower/suprapubic abdominal TTP. Normal bowel sounds. Soft, mildly- distended. EXTREMITIES: Limited ROM in lower extremities 2/2 paraplegia. No gross deformities. GENITOURINARY: There is a brambila in place, no rashes RECTAL: There are multiple soft external hemorhoids. They do not appear to be erythematous, swollen, painful or thrombosed SKIN: Warm, dry. No rash NEUROLOGICAL: No focal neurological deficits aside from lower extremity paraplegia. ED Treatment Course - LABORATORY CBC & Chemistry Diagram: 09/20/19 08:30 09/20/19 08:30 - RADIOLOGY Radiograph Interpretation: CTAP: EXAM#: TYPE/EXAM: RESULT: [id number] CT/ABDOMEN PELVIS CT WITH CONTR Abdomen and pelvis CT with intravenous contrast Clinical information: lower abdominal pain; evaluate for perforation versus rectal hernia Multiplanar imaging was performed following the intravenous administration of nonionic contrast. Enteric contrast was not administered. No evidence of pneumoperitoneum, abscess, ascites or bowel obstruction. In comparison to a prior CT exam of 02/11/2019 note is made of prominently increased diffuse urinary bladder wall thickening. There is been interval insertion of a urinary bladder catheter. The appendix is not definitely identified however no indirect CT signs of acute appendicitis is seen. There is no CT evidence of acute diverticulitis or obvious acute colitis. Note is made of mildly increased fluid within the colon. There is no definite associated colonic wall edema or pericolonic edema/fluid. No gross noncontrast small bowel pathology is identified. There is somewhat increased rectosigmoid fecal retention which currently appears mild to moderate. The remainder of the exam demonstrates no definite interval change. Status post splenectomy. The pancreatic tail appears to demonstrate mildly truncated appearance which may be postsurgical. Multiple small stable hepatic cysts. Mild stable extrahepatic biliary tract dilatation. Stable 1 cm left adrenal nodule which is also unchanged in comparison to 2016 CT exam. The gallbladder, right adrenal gland and kidneys demonstrate no discrete pathology. Small bilateral renal cortical cysts. No definite lymphadenopathy is noted on the basis of size criteria. Complete occlusion of the infrarenal aorta and apparent complete occlusion of the iliac arteries bilaterally. Mild prostate enlargement. Diffuse osteoporosis. There is partial imaging of intramedullary rods within the femora bilaterally. Diffuse body wall muscle atrophy at the level the abdomen and pelvis. IMPRESSION: No CT evidence of pneumoperitoneum. There is no definite hernia. In comparison to a CT exam of 02/11/2019 interval prominently increased diffuse urinary bladder wall thickening is noted suggestive of cystitis which may be acute and/or chronic. Correlate clinically. Interval insertion of a Brambila catheter is noted. Increased fluid is seen within the colon - ? current/recent diarrheal illness. Mild to moderate rectosigmoid fecal retention. The remainder of the abdomen/pelvis exam demonstrates no obvious interval change demonstrating multiple chronic findings as noted above. The partially imaged lower chest demonstrates several bilateral spiculated pulmonary lesions as described in detail on prior chest CT exams. The patient is also status post lung biopsy performed on 06/29/2019. Correlate with pathology findings. Medical Decision Making - Medical Decision Making Nikolas Valenzuela is a 64 yo M w a hx of COPD, Right lung adenocarcinoma (no chemo/ rads/ surgery), paraplegia secondary to spinal cord transection (T2-T4 in 1980s) , neurogenic bladder, recurrent UTIs, and frequent hypotension who was discharged from the hospital yesterday afternoon with a brambila in place who returns to the ER with lower abdominal pain stating he believes his bladder is distended and not draining properly. He is here primarily because he has a burning pain which is not the same pain as his normal UTI pain. Vital Signs Temp Pulse Resp BP Pulse Ox 98.3 F 91 H 15 113/59 L 98 09/20/19 05:43 09/20/19 05:43 09/20/19 05:43 09/20/19 05:43 09/20/19 05:43 DDx IBNLT: Recurrent UTI, bladder perforation, peritonitis, rectal prolapse, thrombosed hemorrhoid, rectal hernia Plan: Labs, Urine, POCUS bladder, CTAP, analgesia, re-assess. Labs: Leukocytosis w/ left shift Urine: Appears to be newly infected CTAP: prominently increased diffuse urinary bladder wall thickening. Note is made of mildly increased fluid within the colon. There is somewhat increased rectosigmoid fecal retention which currently appears mild to moderate. Complete occlusion of the infrarenal aorta and apparent complete occlusion of the iliac arteries bilaterally. Re-assessment: Patient continuously endorses lower abdominal pain and requests pain meds to alleviate his symptoms. Disposition: Admit to med/surg for persistent UTI Discharge - Discharge Information Problems reviewed: Yes Clinical Impression/Diagnosis: UTI (urinary tract infection) Qualifiers: Urinary tract infection type: acute cystitis Hematuria presence: without hematuria Qualified Code(s): N30.00 - Acute cystitis without hematuria Condition: Stable - Admission Yes - Follow up/Referral - Patient Discharge Instructions - Post Discharge Activity
[2019-09-20 09:11] LABS: BASO % 0.1 % (0-2.0); EOS % 3.3 % (0-4.5); HEMATOCRIT 37.7 % (35.4-49); HEMOGLOBIN 12.9 GM/dL (11.7-16.9); LYMPH % 7.7 % (8-40); MCHC 34.2 g/dl (32.0-35.9); MEAN CELL VOLUME 87.9 fl (80-96); MEAN PLT VOLUME 9.2 fl (7.5-11.1); MONO % 8.2 % (3.8-10.2); NEUT % 80.7 % (42.8-82.8); PLATELET COUNT 622 K/MM3 (134-434); RBC 4.29 M/mm3 (4.00-5.60)
[2019-09-20 09:45] LABS: ALBUMIN 2.7 g/dl (3.4-5.0); BILIRUBIN,TOTAL 0.2 mg/dL (0.2-1); BLOOD UREA NITROGEN 9.1 mg/dL (7-18); CREATININE 0.5 mg/dL (0.55-1.3); POTASSIUM 4.7 mmol/L (3.5-5.1)
[2019-09-20] MEDS ORDERED: ACETAMINOPHEN 325 MG TABLET (FP) ONE (10:13)
[2019-09-20 11:39] LABS: ANISOCYTOSIS 1+; MACROCYTOSIS 1+; PLATELET ESTIMATE INCREASED
[2019-09-20 12:59] LABS: EPI CELLS 0.8 /HPF (0-5/HPF); HYALINE CASTS 26 /lpf (0-8); URINE APPEARANCE CLEAR; URINE BACTERIA 685.9 /hpf (NEGATIVE); URINE BILIRUBIN NEGATIVE (NEGATIVE); URINE COLOR YELLOW; URINE GLUCOSE (UA) NEGATIVE (NEGATIVE); URINE KETONE NEGATIVE (NEGATIVE); URINE LEUK ESTERASE 3+ (NEGATIVE); URINE NITRITE NEGATIVE (NEGATIVE); URINE PROTEIN TRACE (NEGATIVE); URINE RBC 2 /hpf (0-4); URINE UROBILINOGEN 0.2 mg/dL (0.2-1.0); URINE WBC 45 /hpf (0-5)
--- NOTE | 2019-09-20 14:01 | PDOC ---
Attending Attestation - Resident Resident Name: Narciso Lipscomb - ED Attending Attestation I have performed the following: I have examined & evaluated the patient, The case was reviewed & discussed with the resident (w), I agree w/resident's findings & plan, Exceptions are as noted - HPI HPI: 09/20/19 17:25 64 yo M w a hx of COPD, Right lung adenocarcinoma (no chemo/rads/ surgery), paraplegia secondary to spinal cord transection (T2-T4 in 1980s), neurogenic bladder, recurrent UTIs, and frequent hypotension who was discharged from the hospital yesterday afternoon with a brambila in place who returns to the ER with lower abdominal pain - Physicial Exam PE: 09/20/19 17:25 Vitals: Triage Vital signs reviewed General Appearance: No acute distress, well nourished well developed, Head: Atraumatic, Regular rate and rhythym, no murmurs, no rubs, no gallops, Lungs: Clear to auscultation bilateral, good air movement bilaterally, Abdomen: Soft, non distended, normal bowel sounds suprapubic tenderness to palpation - Medical Decision Making 09/20/19 17:27 64 years old CAT scan demonstrates cystitis new elevated white count will observe overnight for IV antibiotics and further management for cystitis/ complicated UTI
[2019-09-20] MEDS ORDERED: DOCUSATE NA 100 MG/10 ML UNIT-DOSE CUPS PO PRN (15:24)
[2019-09-20] MEDS ORDERED: morphine SULFATE 10 MG/5 ML UNIT-DOSE CUP PO ONE (15:25)
--- NOTE | 2019-09-20 15:30 | HP ---
64 M h/o paraplegia, COPD, R lung ca w/o chemo/RT/surgery, neurogenic bladder with chronic UTIs and chronic interstitial cystitis, recurrent admissions for UTIs and chronic cystitis presents to ER with complaints of difficulty voiding when trying to self catheterize. Patient recently DC yesterday with 1 week course of abx for UTI which was DCed by ID service. Urology was consulted whom recommended SPT in which patient refused. Patient with brambila placed currently, draining clear yellow urine, UA showing leuk est. 3+ which was grossly unchanged from prior, with decrease in WBC count. Patient denies fever/chills/ back pain/SOB/CP/LOC/dizziness, endorses feeling "much better" after catherization. PE VSS GA bed bound, AAox3, speaks in full sentences HEENT NC/AT, EOMI, neck supple, dry MM, no JVD Chest CTAB, no wheezing or crackles CVS S1, S2+ RRR Abd Soft, NT, ND, BS+ brambila catheter placed, no SP tenderness Ext paraplegic, atrophic lower extremities, contracted LE Allergies vancomycin Allergy (Verified 09/20/19 05:45) HOME MEDICATIONS: Home Medications Medication Instructions Recorded Diazepam [Valium] 10 mg PO TID PRN tablet MDD 30mg 06/17/18 Morphine 10 mg/5 ml Liquid 20 mg PO Q4H MDD 60mg 06/14/19 [Morphine 10 mg/5 mL Liquid -] Ascorbic Acid [Vitamin C -] 1,000 mg PO BID 30 Days #120 tablet 09/17/19 Gabapentin [Neurontin -] 300 mg PO HS 30 Days #30 capsule 09/17/19 Methenamine Hippurate [Hiprex [Nf] 1 gm PO BID 30 Days #60 tablet 09/17/19 -] Tamsulosin HCl [Flomax -] 0.4 mg PO DAILY@0830 30 Days #30 09/17/19 cap.er.24h REVIEW OF SYSTEMS CONSTITUTIONAL: Absent: fever, chills, diaphoresis, generalized weakness, malaise, loss of appetite, weight change HEENT: Absent: rhinorrhea, nasal congestion, throat pain, throat swelling, difficulty swallowing, mouth swelling, ear pain, eye pain, visual changes CARDIOVASCULAR: Absent: chest pain, syncope, palpitations, irregular heart rate, lightheadedness , peripheral edema RESPIRATORY: Absent: cough, shortness of breath, dyspnea with exertion, orthopnea, wheezing, stridor, hemoptysis GASTROINTESTINAL: Absent: abdominal pain, abdominal distension, nausea, vomiting, diarrhea, constipation, melena, hematochezia GENITOURINARY: Absent: dysuria, frequency, urgency, hesitancy, hematuria, flank pain, genital pain MUSCULOSKELETAL: Absent: myalgia, arthralgia, joint swelling, back pain, neck pain SKIN: Absent: rash, itching, pallor HEMATOLOGIC/IMMUNOLOGIC: Absent: easy bleeding, easy bruising, lymphadenopathy, frequent infections ENDOCRINE: Absent: unexplained weight gain, unexplained weight loss, heat intolerance, cold intolerance NEUROLOGIC: Absent: headache, focal weakness or paresthesias, dizziness, unsteady gait, seizure, mental status changes, bladder or bowel incontinence PSYCHIATRIC: Absent: anxiety, depression, suicidal or homicidal ideation, hallucinations. Vital Signs - 24 hr 09/20/19 05:43 Temperature 98.3 F Pulse Rate 91 H Respiratory 15 Rate Blood Pressure 113/59 L O2 Sat by Pulse 98 Oximetry (%) Laboratory Results - last 24 hr 09/20/19 09/20/19 09/20/19 08:30 08:30 11:50 WBC 14.0 H RBC 4.29 Hgb 12.9 Hct 37.7 MCV 87.9 MCH 30.0 MCHC 34.2 RDW 17.0 H Plt Count 622 H D MPV 9.2 Absolute Neuts (auto) 11.3 H Neutrophils % 80.7 D Neutrophils % (Manual) 75.0 Band Neutrophils % 0.0 Lymphocytes % 7.7 L D Lymphocytes % (Manual) 8.0 D Monocytes % 8.2 Monocytes % (Manual) 7 D Eosinophils % 3.3 Eosinophils % (Manual) 4.0 D Basophils % 0.1 Basophils % (Manual) 0.0 Myelocytes % (Man) 0 D Promyelocytes % (Man) 0 Blast Cells % (Manual) 0 Nucleated RBC % 0 Metamyelocytes 0 D Platelet Estimate Increased Polychromasia 1+ Anisocytosis 1+ Macrocytosis 1+ Sodium 135 L Potassium 4.7 Chloride 102 Carbon Dioxide 29 Anion Gap 5 L BUN 9.1 Creatinine 0.5 L Est GFR (CKD-EPI)AfAm 130.88 Est GFR (CKD-EPI)NonAf 112.92 Random Glucose 91 Calcium 9.0 Total Bilirubin 0.2 AST 22 ALT 17 Alkaline Phosphatase 102 Total Protein 7.0 Albumin 2.7 L Urine Color Yellow Urine Appearance Clear Urine pH 8.0 D Ur Specific [place] 1.009 L Urine Protein Trace Urine Glucose (UA) Negative Urine Ketones Negative Urine Blood Trace Urine Nitrite Negative Urine Bilirubin Negative Urine Urobilinogen 0.2 Ur Leukocyte Esterase 3+ H Urine WBC (Auto) 45 Urine RBC (Auto) 2 Urine Casts (Auto) 26 U Epithel Cells (Auto) 0.8 Urine Bacteria (Auto) 685.9 A/P: 64 M bed-bound, paraplegic, neurogenic bladder with urinary strictures and chronic cystitis and multiple admissions for UTI and chronic cystitis with urinary retention, admitted for urinary retention requiring brambila placement and difficulty voiding w/ self-cath, refused SPT on last admission. No signs of new UTI, urine showing chronic inflammatory changes. Urinary retention likely 2/2 urinary strictures, patient requires SPT but refusing, multiple admissions for the same, no signs of sepsis or active infection, just finished full antibiotic course yesterday, will hold off abx for now and treat symptoms Start Hiprex 1gm BID, Vit C 1gm BID Consult Urology: Dr. Crooks DVT ppx: Heparin SC Amdit to Med-Surg Visit type - Emergency Visit Emergency Visit: Yes ED Registration Date: 09/20/19 Care time: The patient presented to the Emergency Department on the above date and was hospitalized for further evaluation of their emergent condition. - New Patient This patient is new to me today: Yes Date on this admission: 09/20/19 - Critical Care Critical Care patient: No
[2019-09-20] MEDS: POLYETHYLENE GLYCOL 3350 119 GM BTL PO SCH (18:50)
[2019-09-20] MEDS ORDERED: HEPARIN NA (PORCINE) 5,000 UNITS/ML 1ML VIAL ONE (23:23)
[2019-09-20] MEDS ORDERED: SENNOSIDES 8.6MG TABLET (FP) PO ONE (23:23)
[2019-09-20] MEDS: HEPARIN NA (PORCINE) 5,000 UNITS/ML 1ML VIAL SQ SCH (23:41)
[2019-09-20] MEDS: SENNOSIDES 8.6MG TABLET (FP) PO SCH (23:41)
[2019-09-20] MEDS: ASCORBIC ACID 500 MG TABLET (FP) PO SCH (23:41)
[2019-09-21] MEDS ORDERED: morphine SULFATE 10 MG/5 ML UNIT-DOSE CUP PO ONE ×2 (01:07→06:00)
[2019-09-21] MEDS ORDERED: diazePAM 5 MG TABLET PO ONE (02:00)
[2019-09-21] MEDS: HEPARIN NA (PORCINE) 5,000 UNITS/ML 1ML VIAL SQ SCH ×3 (06:04→21:26)
[2019-09-21] MEDS ORDERED: ACETAMINOPHEN 325 MG TABLET (FP) PO PRN (07:46)
[2019-09-21] MEDS: POLYETHYLENE GLYCOL 3350 119 GM BTL PO SCH (09:49)
[2019-09-21] MEDS: ASCORBIC ACID 500 MG TABLET (FP) PO SCH ×2 (09:49→21:25)
[2019-09-21] MEDS ORDERED: metoPROLOL SUCCINATE 25 MG TAB.SR.24H (FP) PO SCH (10:00)
--- NOTE | 2019-09-21 14:22 | PN ---
Physical Exam: SUBJECTIVE: Patient seen and examined. Patient denies current abdominal pain, fever, or chills. Patient AAOx3 but seems confused regarding the fact that he was discharged home for one day. Unclear as to what prompted him to return to the hospital. OBJECTIVE: Vital Signs Period Temp Pulse Resp BP Sys/Roche Pulse Ox Last 24 Hr 97.3 F-98.6 F 76-103 18-20 94-132/44-68 94-96 GENERAL: The patient is awake, alert, and fully oriented, in no acute distress. HEAD: Normal with no signs of trauma. EYES: EOMI, no scleral icterus, no ptosis ENT: moist mucous membranes, oropharynx without exudate NECK: Trachea midline, full range of motion, supple. LUNGS: clear to auscultation bilaterally, no wheezes, no crackles, no accessory muscle use. HEART: Regular rate and rhythm, S1, S2 without murmur, rub or gallop. ABDOMEN: Soft, nondistended, normoactive bowel sounds, no guarding, no rebound, no hepatosplenomegaly, no masses. : brambila in place EXTREMITIES: 2+ pulses, warm, well-perfused. Right wrist fused. emaciated lower extremities. NEUROLOGICAL: Normal speech, gait not observed. AAOx3. sensation intact throughout PSYCH: Normal mood, normal affect. SKIN: Warm, dry, normal turgor, no rashes or lesions noted Active Medications Generic Name Dose Route Start Last Admin Trade Name Freq PRN Reason Stop Dose Admin Acetaminophen 650 mg 09/21/19 07:46 Tylenol - PO Q6H PRN MODERATE PAIN Ascorbic Acid 1,000 mg 09/20/19 22:00 09/21/19 09:49 Vitamin C - PO 1,000 mg BID ZAIRA Administration Docusate Sodium 100 mg 09/20/19 15:24 Colace Liquid - PO DAILY PRN CONSTIPATION Gabapentin 300 mg 09/21/19 22:00 Neurontin - PO HS ZAIRA Heparin Sodium (Porcine) 5,000 unit 09/20/19 22:00 09/21/19 06:04 Heparin - SQ 5,000 unit TID ZAIRA Administration Metoprolol Succinate 25 mg 09/21/19 10:00 09/21/19 09:49 Toprol Xl - PO 25 mg DAILY ZAIRA Administration Morphine Sulfate 20 mg 09/21/19 08:00 Morphine 10 Mg/5 Ml Liquid PO Q4H PRN PAIN LEVEL 1-5 Polyethylene Glycol 17 gm 09/20/19 15:30 09/21/19 09:49 Miralax (For Daily Use) - PO Not Given DAILY ZAIRA Senna 1 tab 09/20/19 22:00 09/20/19 23:41 Senna - PO Not Given HS ZAIRA ASSESSMENT/PLAN: 64 y/o/m with a PMHx of COPD, Right lung adenocarcinoma (no chemo/rads/ surgery) , paraplegia secondary to spinal cord transection (T2-T4 in 1980s), neurogenic bladder, recurrent UTIs, hypotension. Patient was discharged home on 09/[address] and follow up appointment with Dr. Duke on 10/01 but returned to ED due to abd pain and burning pain. #UTI - UA with increased bacteria count compared to UA on previous admission - Urine culture growing Group D Strep or Entero Coccus - ID consulted (Dr. Salazar) - Zosyn x1 given, further abx per ID - WBC at 14, patient afebrile, continue to monitor - F/u Blood cultures - Continue Vitamin C 1000mg BID #Paraplegia - Continue Gabapentin 300mg HS for worsening neuropathy #COPD - Current not in exacerbation - Not on any COPD medications at home #Adenocarcinoma right upper lung lobe - Out-patient hematology/oncology follow up recommended - Heme/onc consulted on previous admission - not a candidate for immunotherapy or EGFR inhibitor. poor candidate for chemo - patient states he does not want treatment for lung mass - no need for flow studies #FEN - no IV fluids indicated - monitor and replete lytes as needed - regular diet #Prophylaxis - Heparin #Disposition - ID consulted for positive urine culture, D/C in the next few days pending abx recommendations Visit type - Emergency Visit Emergency Visit: Yes ED Registration Date: 09/21/19 Care time: The patient presented to the Emergency Department on the above date and was hospitalized for further evaluation of their emergent condition. - New Patient This patient is new to me today: Yes Date on this admission: 09/21/19 - Critical Care Critical Care patient: No ATTENDING PHYSICIAN STATEMENT I saw and evaluated the patient. I reviewed the resident's note and discussed the case with the resident. I agree with the resident's findings and plan as documented. SUBJECTIVE: OBJECTIVE: ASSESSMENT AND PLAN:
[2019-09-21] MEDS ORDERED: PIPERACILLIN/TAZOB 3.375 GM 3.375 GM in DEXTROSE 5%-WATER - 50 ML IVPB ONE (14:38)
[2019-09-21] MEDS ORDERED: PIPERACILLIN/TAZOBACTAM 3.375 GM VIAL IVPB ONE (15:54)
[2019-09-21] MEDS ORDERED: DEXTROSE 5%-WATER - 50 ML IVPB ONE (15:54)
[2019-09-21] MEDS: morphine SULFATE 10 MG/5 ML UNIT-DOSE CUP PO PRN ×2 (16:35→21:26)
--- NOTE | 2019-09-21 17:36 | PN ---
Teaching Attending Note Name of Resident: Jessie Moses ATTENDING PHYSICIAN STATEMENT I saw and evaluated the patient. I reviewed the resident's note and discussed the case with the resident. I agree with the resident's findings and plan as documented. SUBJECTIVE: Feels well - no complains. No fever/chills. No nausea/vomiting OBJECTIVE: Afebrile, Hemodynamically Stable. Last Vital Signs Temp Pulse Resp BP Pulse Ox 98.3 F 85 20 94/57 L 96 09/21/19 15:22 09/21/19 15:22 09/21/19 15:22 09/21/19 15:22 09/21/19 08:30 HEENT - Atramatic Heart -S1, S2, RRR Lungs - clear to auscultation Abdomen - Soft, non-tender. Bowel Sounds normal. Extremities - no calf tenderness, wasting, contractures. Current Medications Generic Name Dose Route Start Last Admin Trade Name Freq PRN Reason Stop Dose Admin Acetaminophen 650 mg 09/21/19 07:46 Tylenol - PO Q6H PRN MODERATE PAIN Ascorbic Acid 1,000 mg 09/20/19 22:00 09/21/19 09:49 Vitamin C - PO 1,000 mg BID ZAIRA Administration Docusate Sodium 100 mg 09/20/19 15:24 Colace Liquid - PO DAILY PRN CONSTIPATION Gabapentin 300 mg 09/21/19 22:00 Neurontin - PO HS ZAIRA Heparin Sodium (Porcine) 5,000 unit 09/20/19 22:00 09/21/19 14:18 Heparin - SQ 5,000 unit TID ZAIAR Administration Morphine Sulfate 20 mg 09/21/19 08:00 09/21/19 16:35 Morphine 10 Mg/5 Ml Liquid PO 20 mg Q4H PRN Administration PAIN LEVEL 1-5 Polyethylene Glycol 17 gm 09/20/19 15:30 09/21/19 09:49 Miralax (For Daily Use) - PO Not Given DAILY ZAIRA Senna 1 tab 09/20/19 22:00 09/20/19 23:41 Senna - PO Not Given HS [facility] Home Medications Medication Instructions Recorded Diazepam [Valium] 10 mg PO TID PRN tablet MDD 30mg 06/17/18 Morphine 10 mg/5 ml Liquid 20 mg PO Q4H MDD 60mg 06/14/19 [Morphine 10 mg/5 mL Liquid -] Ascorbic Acid [Vitamin C -] 1,000 mg PO BID 30 Days #120 tablet 09/17/19 Gabapentin [Neurontin -] 300 mg PO HS 30 Days #30 capsule 09/17/19 Methenamine Hippurate [Hiprex [Nf] 1 gm PO BID 30 Days #60 tablet 09/17/19 -] Tamsulosin HCl [Flomax -] 0.4 mg PO DAILY@0830 30 Days #30 09/17/19 cap.er.24h ASSESSMENT AND PLAN: 64 year old male with history of COPD, R lung Adenocarcinoma (no CTx/RTx/Surgery ), 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 1. UTI/Cystitis CT A/P - Diffuse bladder wall thickening suggestive of cystitis. Urine Cx - GpD strep or Enterococcus > 100,000 CFU/ml Started on Zosyn ID eval. Afebrile, hemodynamically stable. Outpatient Urology follow up with Dr. Montenegro. 2. RUL Adenocarcinoma, not on treatment - for out-patient Oncology follow up. Persisting leukocytosis, chronic, likely sec to underlying Ca. 3. COPD - stable. No evidence of decompensation. 4. Paraplegia sec to cord transection with Neurogenic Bladder - on Gabapentin. 5. Chronic constipation - on Senna, Miralax, manual disimpaction PRN. DVT Px - Heparin SQ.
--- NOTE | 2019-09-21 18:41 | CON.ID ---
Consult Consult Specialty:: infectious diseases Referred by:: hospitalist Reason for Consultation:: uti - History of Present Illness Chief Complaint: abd pain History of Present Illness: this patient well known to me who was admitted with abd pain on last admission and had recently was discharged came to the hospital with abd pain again patient this time was worked up and found to have uti abd pain denies fevers or any other issues - History Source History Provided By: Patient Limitations to Obtaining History: No Limitations - Past Medical History [employer]: Yes: Other (paraplegia due to accidental fall (T2 spinal fracture)) Gastrointestinal: Yes: Other (Hepatic hemangiomas) Renal/: Yes: Other (Bladder dysfunction) Infectious Disease: Yes: Other (multiple UTIs Pseudomonas) Musculoskeletal: Yes: Paraplegia, Other (Chronic pain) - Past Surgical History Past Surgical History: Yes: Splenectomy - Alcohol/Substance Use Hx Alcohol Use: No History of Substance Use: reports: Marijuana - Smoking History Smoking history: Never smoked Have you smoked in the past 12 months: No Aproximately how many cigarettes per day: 3 If you are a former smoker, when did you quit?: 1985 - Social History Usual Living Arrangement: With Significant Other 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 ([facility] (24hr)) History of Recent Travel: No Home Medications - Allergies Allergies/Adverse Reactions: Allergies Allergy/AdvReac Type Severity Reaction Status Date / Time vancomycin Allergy Verified 09/20/19 05:45 - Home Medications Home Medications: Ambulatory Orders Diazepam [Valium] 10 mg PO TID PRN tablet MDD 30mg 06/17/18 Morphine 10 mg/5 ml Liquid [Morphine 10 mg/5 mL Liquid -] 20 mg PO Q4H MDD 60mg 06/14/19 Ascorbic Acid [Vitamin C -] 1,000 mg PO BID 30 Days #120 tablet 09/17/19 Gabapentin [Neurontin -] 300 mg PO HS 30 Days #30 capsule 09/17/19 Methenamine Hippurate [Hiprex [Nf] -] 1 gm PO BID 30 Days #60 tablet 09/17/19 Tamsulosin HCl [Flomax -] 0.4 mg PO DAILY@0830 30 Days #30 cap.er.24h 09/17/19 Review of Systems - Review of Systems Constitutional: reports: No Symptoms Eyes: reports: No Symptoms HENT: reports: No Symptoms Neck: reports: No Symptoms Cardiovascular: reports: No Symptoms Respiratory: reports: No Symptoms Gastrointestinal: reports: Abdominal Pain Genitourinary: reports: No Symptoms Musculoskeletal: reports: No Symptoms Integumentary: reports: No Symptoms Neurological: reports: No Symptoms Endocrine: reports: No Symptoms Hematology/Lymphatic: reports: No Symptoms Psychiatric: reports: No Symptoms Physical Exam Vital Signs: Vital Signs Temperature 98.3 F 09/21/19 15:22 Pulse Rate 85 09/21/19 15:22 Respiratory Rate 20 09/21/19 15:22 Blood Pressure 94/57 L 09/21/19 15:22 O2 Sat by Pulse Oximetry (%) 96 09/21/19 08:30 Constitutional: Yes: Well Nourished, No Distress, Calm Cardiovascular: Yes: Regular Rate and Rhythm Respiratory: Yes: Regular, CTA Bilaterally Gastrointestinal: Yes: Normal Bowel Sounds, Soft Musculoskeletal: Yes: WNL Extremities: Yes: Other (contracted) Neurological: Yes: Alert, Oriented Psychiatric: Yes: Alert, Oriented Labs: CBC, BMP 09/20/19 08:30 09/20/19 08:30 Imaging - Results Cat Scan: Report Reviewed, Image Reviewed Assessment/Plan Problem List - Problems (1) UTI (urinary tract infection) Code(s): N39.0 - URINARY TRACT INFECTION, SITE NOT SPECIFIED Qualifiers: Urinary tract infection type: site unspecified Hematuria presence: without hematuria Qualified Code(s): N39.0 - Urinary tract infection, site not specified (2) Adenocarcinoma of right lung Code(s): C34.91 - MALIGNANT NEOPLASM OF UNSP PART OF RIGHT BRONCHUS OR LUNG (3) Neurogenic bladder Code(s): N31.9 - NEUROMUSCULAR DYSFUNCTION OF BLADDER, UNSPECIFIED (4) Paraplegia Code(s): G82.20 - PARAPLEGIA, UNSPECIFIED (5) Leukocytosis Code(s): D72.829 - ELEVATED WHITE BLOOD CELL COUNT, UNSPECIFIED (6) Tibia/fibula fracture Code(s): S82.209A - UNSP FRACTURE OF SHAFT OF UNSP TIBIA, INIT FOR CLOS FX; S82.409A - UNSP FRACTURE OF SHAFT OF UNSP FIBULA, INIT FOR CLOS FX Qualifiers: Encounter type: initial encounter Fracture type: closed Laterality: left Qualified Code(s): S82.202A - Unspecified fracture of shaft of left tibia, initial encounter for closed fracture; S82.402A - Unspecified fracture of shaft of left fibula, initial encounter for closed fracture plan will start on abx monitor await for identification rest as per the team
[2019-09-21] MEDS: GABAPENTIN 300 MG CAPSULE PO SCH (21:25)
[2019-09-21] MEDS: SENNOSIDES 8.6MG TABLET (FP) PO SCH (21:26)
[2019-09-21] MEDS ORDERED: PATIENT'S OWN MEDICATION (NON-FORMULARY) (Methenamine Hippurate 1 GM) PO SCH (22:00)
[2019-09-22] MEDS ORDERED: PIPERACILLIN/TAZOBACTAM 3.375 GM VIAL IVPB ONE ×3 (01:31→17:11)
[2019-09-22] MEDS ORDERED: DEXTROSE 5%-WATER - 50 ML IVPB ONE ×3 (01:31→17:11)
[2019-09-22] MEDS: PIPERACILLIN/TAZOB 3.375 GM 3.375 GM in DEXTROSE 5%-WATER - 50 ML IVPB SCH ×3 (01:44→17:24)
[2019-09-22] MEDS: morphine SULFATE 10 MG/5 ML UNIT-DOSE CUP PO PRN ×4 (01:45→17:44)
[2019-09-22] MEDS: HEPARIN NA (PORCINE) 5,000 UNITS/ML 1ML VIAL SQ SCH ×3 (05:09→21:45)
[2019-09-22 08:22] LABS: BASO % 1.6 % (0-2.0); EOS % 7.8 % (0-4.5); HEMATOCRIT 36.3 % (35.4-49); HEMOGLOBIN 12.1 GM/dL (11.7-16.9); LYMPH % 18.2 % (8-40); MCH 29.8 pg (25.7-33.7); MCHC 33.3 g/dl (32.0-35.9); MEAN CELL VOLUME 89.5 fl (80-96); MEAN PLT VOLUME 9.1 fl (7.5-11.1); MONO % 9.9 % (3.8-10.2); NEUT % 62.5 % (42.8-82.8); PLATELET COUNT 593 K/MM3 (134-434); RBC 4.05 M/mm3 (4.00-5.60); RDW 17.1 % (11.9-15.9); WHITE BLOOD COUNT 10.7 K/mm3 (4.0-10.0)
[2019-09-22] MEDS ORDERED: SODIUM CHLORIDE 1,000 ML IV STA (08:31)
[2019-09-22 08:49] LABS: ALBUMIN 2.5 g/dl (3.4-5.0); BILIRUBIN,TOTAL 0.3 mg/dL (0.2-1); BLOOD UREA NITROGEN 8.6 mg/dL (7-18); CALCIUM 8.3 mg/dL (8.5-10.1); CREATININE 0.6 mg/dL (0.55-1.3); POTASSIUM 3.7 mmol/L (3.5-5.1); TOT PROT 6.2 g/dl (6.4-8.2)
[2019-09-22] MEDS: ASCORBIC ACID 500 MG TABLET (FP) PO SCH ×2 (09:24→21:45)
[2019-09-22] MEDS: POLYETHYLENE GLYCOL 3350 119 GM BTL PO SCH (09:25)
[2019-09-22 15:34] VITALS: BMI 18.3
--- NOTE | 2019-09-22 16:30 | PN ---
Physical Exam: SUBJECTIVE: Patient seen and examined. No acute events overnight. As per nurse patient keeps touching his brambila. Educated patient on importance of not touching brambila and keep it clean. Denies chest pain, abd pain, SOB, fever, chills. OBJECTIVE: Vital Signs Period Temp Pulse Resp BP Sys/Roche Pulse Ox Last 24 Hr 97.3 F-98.3 F 58-85 18-20 81-124/43-64 95-96 GENERAL: The patient is awake, alert, and fully oriented, in no acute distress. HEAD: Normal with no signs of trauma. EYES: EOMI, no scleral icterus, no ptosis ENT: moist mucous membranes NECK: Trachea midline, full range of motion, supple. LUNGS: clear to auscultation bilaterally, no wheezes, no crackles, no accessory muscle use. HEART: Regular rate and rhythm, S1, S2 without murmur, rub or gallop. ABDOMEN: Soft, nondistended, normoactive bowel sounds, no guarding, no rebound, no hepatosplenomegaly, no masses : brambila in place EXTREMITIES: 2+ pulses, warm, well-perfused. Right wrist fused. emaciated lower extremities. NEUROLOGICAL: Normal speech, gait not observed. AAOx3. sensation intact throughout PSYCH: Normal mood, normal affect SKIN: Warm, dry, normal turgor, no rashes or lesions noted Laboratory Results - last 24 hr 09/22/19 09/22/19 07:57 07:57 WBC 10.7 H RBC 4.05 Hgb 12.1 Hct 36.3 MCV 89.5 MCH 29.8 MCHC 33.3 RDW 17.1 H Plt Count 593 H MPV 9.1 Absolute Neuts (auto) 6.7 Neutrophils % 62.5 D Lymphocytes % 18.2 D Monocytes % 9.9 Eosinophils % 7.8 H D Basophils % 1.6 D Nucleated RBC % 0 Sodium 135 L Potassium 3.7 Chloride 102 Carbon Dioxide 27 Anion Gap 6 L BUN 8.6 Creatinine 0.6 Est GFR (CKD-EPI)AfAm 121.43 Est GFR (CKD-EPI)NonAf 104.77 Random Glucose 92 Calcium 8.3 L Total Bilirubin 0.3 AST 14 L ALT 18 Alkaline Phosphatase 86 Total Protein 6.2 L Albumin 2.5 L Active Medications Generic Name Dose Route Start Last Admin Trade Name Freq PRN Reason Stop Dose Admin Acetaminophen 650 mg 09/21/19 07:46 Tylenol - PO Q6H PRN MODERATE PAIN Ascorbic Acid 1,000 mg 09/20/19 22:00 09/22/19 09:24 Vitamin C - PO 1,000 mg BID ZAIRA Administration Docusate Sodium 100 mg 09/20/19 15:24 Colace Liquid - PO DAILY PRN CONSTIPATION Gabapentin 300 mg 09/21/19 22:00 09/21/19 21:25 Neurontin - PO 300 mg HS ZAIRA Administration Heparin Sodium (Porcine) 5,000 unit 09/20/19 22:00 09/22/19 14:39 Heparin - SQ Not Given TID ZAIRA Piperacillin Sod/Tazobactam 50 mls @ 100 mls/hr 09/22/19 02:00 09/22/19 11:18 Sod 3.375 gm/ Dextrose IVPB 100 mls/hr Q8H-IV ZAIRA Administration Protocol Morphine Sulfate 20 mg 09/21/19 08:00 09/22/19 06:13 Morphine 10 Mg/5 Ml Liquid PO 20 mg Q4H PRN Administration PAIN LEVEL 1-5 Polyethylene Glycol 17 gm 09/20/19 15:30 09/22/19 09:25 Miralax (For Daily Use) - PO Not Given DAILY ZAIRA Senna 1 tab 09/20/19 22:00 09/21/19 21:26 Senna - PO 1 tab HS ZAIRA Administration ASSESSMENT/PLAN: 64 y/o/m with a PMHx of COPD, Right lung adenocarcinoma (no chemo/rads/ surgery) , paraplegia secondary to spinal cord transection (T2-T4 in 1980s), neurogenic bladder, recurrent UTIs, hypotension. Patient was discharged home on 09/[address] and follow up appointment with Dr. Duke on 10/01 but returned to ED due to abd pain and burning pain. #UTI - UA with increased bacteria count compared to UA on previous admission - Urine culture growing Group D Strep or Entero Coccus, pending sensitivities - ID consulted (Dr. Salazar) - Continue Zosyn, will switch to oral abx after sensitivities are available - WBC at 10.7, patient afebrile, continue to monitor - Blood cultures negative to date - Continue Vitamin C 1000mg BID #Paraplegia - Continue Gabapentin 300mg HS for worsening neuropathy #COPD - Currently not in exacerbation - Not on any COPD medications at home #Adenocarcinoma right upper lung lobe - Out-patient hematology/oncology follow up recommended - Heme/onc consulted on previous admission: - not a candidate for immunotherapy or EGFR inhibitor. poor candidate for chemo - patient states he does not want treatment for lung mass - no need for flow studies #FEN - no IV fluids indicated - monitor and replete lytes as needed - regular diet #Prophylaxis - Heparin #Disposition - ID consulted for positive urine culture, D/C in the next few days pending abx recommendations Visit type - Emergency Visit Emergency Visit: Yes ED Registration Date: 09/21/19 Care time: The patient presented to the Emergency Department on the above date and was hospitalized for further evaluation of their emergent condition. - New Patient This patient is new to me today: No - Critical Care Critical Care patient: No ATTENDING PHYSICIAN STATEMENT I saw and evaluated the patient. I reviewed the resident's note and discussed the case with the resident. I agree with the resident's findings and plan as documented. SUBJECTIVE: OBJECTIVE: ASSESSMENT AND PLAN:
--- NOTE | 2019-09-22 16:36 | PN ---
Teaching Attending Note Name of Resident: Jessie Moses ATTENDING PHYSICIAN STATEMENT I saw and evaluated the patient. I reviewed the resident's note and discussed the case with the resident. I agree with the resident's findings and plan as documented. SUBJECTIVE: Feels well - no complains. No fever/chills. No nausea/vomiting OBJECTIVE: Afebrile, Hemodynamically Stable. Last Vital Signs Temp Pulse Resp BP Pulse Ox 98 F 71 20 124/64 95 09/22/19 14:20 09/22/19 14:20 09/22/19 14:20 09/22/19 14:20 09/22/19 09:00 HEENT - Atraumatic Heart - S1, S2, RRR Lungs - clear to auscultation Abdomen - Soft, non-tender. Bowel Sounds normal. Extremities - no calf tenderness, wasting, contractures LEs. - clear urine in brambila. Laboratory Results - last 24 hr 09/22/19 09/22/19 07:57 07:57 WBC 10.7 H RBC 4.05 Hgb 12.1 Hct 36.3 MCV 89.5 MCH 29.8 MCHC 33.3 RDW 17.1 H Plt Count 593 H MPV 9.1 Absolute Neuts (auto) 6.7 Neutrophils % 62.5 D Lymphocytes % 18.2 D Monocytes % 9.9 Eosinophils % 7.8 H D Basophils % 1.6 D Nucleated RBC % 0 Sodium 135 L Potassium 3.7 Chloride 102 Carbon Dioxide 27 Anion Gap 6 L BUN 8.6 Creatinine 0.6 Est GFR (CKD-EPI)AfAm 121.43 Est GFR (CKD-EPI)NonAf 104.77 Random Glucose 92 Calcium 8.3 L Total Bilirubin 0.3 AST 14 L ALT 18 Alkaline Phosphatase 86 Total Protein 6.2 L Albumin 2.5 L Current Medications Generic Name Dose Route Start Last Admin Trade Name Freq PRN Reason Stop Dose Admin Acetaminophen 650 mg 09/21/19 07:46 Tylenol - PO Q6H PRN MODERATE PAIN Ascorbic Acid 1,000 mg 09/20/19 22:00 09/22/19 09:24 Vitamin C - PO 1,000 mg BID ZAIRA Administration Docusate Sodium 100 mg 09/20/19 15:24 Colace Liquid - PO DAILY PRN CONSTIPATION Gabapentin 300 mg 09/21/19 22:00 09/21/19 21:25 Neurontin - PO 300 mg HS ZAIRA Administration Heparin Sodium (Porcine) 5,000 unit 09/20/19 22:00 09/22/19 14:39 Heparin - SQ Not Given TID ZAIRA Piperacillin Sod/Tazobactam 50 mls @ 100 mls/hr 09/22/19 02:00 09/22/19 11:18 Sod 3.375 gm/ Dextrose IVPB 100 mls/hr Q8H-IV ZAIRA Administration Protocol Morphine Sulfate 20 mg 09/21/19 08:00 09/22/19 06:13 Morphine 10 Mg/5 Ml Liquid PO 20 mg Q4H PRN Administration PAIN LEVEL 1-5 Polyethylene Glycol 17 gm 09/20/19 15:30 09/22/19 09:25 Miralax (For Daily Use) - PO Not Given DAILY ZAIRA Senna 1 tab 09/20/19 22:00 09/21/19 21:26 Senna - PO 1 tab HS ZAIRA Administration Home Medications Medication Instructions Recorded Diazepam [Valium] 10 mg PO TID PRN tablet MDD 30mg 06/17/18 Morphine 10 mg/5 ml Liquid 20 mg PO Q4H MDD 60mg 06/14/19 [Morphine 10 mg/5 mL Liquid -] Ascorbic Acid [Vitamin C -] 1,000 mg PO BID 30 Days #120 tablet 09/17/19 Gabapentin [Neurontin -] 300 mg PO HS 30 Days #30 capsule 09/17/19 Methenamine Hippurate [Hiprex [Nf] 1 gm PO BID 30 Days #60 tablet 09/17/19 -] Tamsulosin HCl [Flomax -] 0.4 mg PO DAILY@0830 30 Days #30 09/17/19 cap.er.24h ASSESSMENT AND PLAN: 64 year old male with history of COPD, R lung Adenocarcinoma (no CTx/RTx/Surgery ), 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 1. Acute UTI/Cystitis, catheter associated CT A/P - Diffuse bladder wall thickening suggestive of cystitis. Urine Cx - GpD strep or Enterococcus > 100,000 CFU/ml Started on Zosyn ID evaluated. Awaiting final ID and sensitivities. Afebrile. BP borderline, improved with IV hydration. Outpatient Urology follow up with Dr. Montenegro. 2. RUL Adenocarcinoma, not on treatment - for out-patient Oncology follow up. Persisting leukocytosis, chronic, likely sec to underlying Ca. 3. COPD - stable. No evidence of decompensation. 4. Paraplegia sec to cord transection with Neurogenic Bladder - on Gabapentin. Brambila to remain in situ pending outpatient follow up. 5. Chronic constipation due to bowel dysfunction sec to cord transection, chronic opiates - on Senna, Miralax, manual disimpaction PRN. DVT Px - Heparin SQ.
[2019-09-22] MEDS ORDERED: PT OWN MED DRAWER 7, Y5N ONE (18:53)
[2019-09-22] MEDS: SENNOSIDES 8.6MG TABLET (FP) PO SCH (21:44)
[2019-09-22] MEDS: GABAPENTIN 300 MG CAPSULE PO SCH (21:45)
[2019-09-23] MEDS ORDERED: DEXTROSE 5%-WATER - 50 ML IVPB ONE ×2 (01:19→09:30)
[2019-09-23] MEDS ORDERED: PIPERACILLIN/TAZOBACTAM 3.375 GM VIAL IVPB ONE ×2 (01:19→09:30)
[2019-09-23] MEDS: PIPERACILLIN/TAZOB 3.375 GM 3.375 GM in DEXTROSE 5%-WATER - 50 ML IVPB SCH ×2 (01:25→09:40)
[2019-09-23] MEDS: morphine SULFATE 10 MG/5 ML UNIT-DOSE CUP PO PRN ×2 (05:18→09:41)
[2019-09-23] MEDS: HEPARIN NA (PORCINE) 5,000 UNITS/ML 1ML VIAL SQ SCH ×2 (05:18→14:15)
[2019-09-23 07:35] LABS: HEMATOCRIT 39.8 % (35.4-49); MCH 29.3 pg (25.7-33.7); MCHC 32.6 g/dl (32.0-35.9); MEAN PLT VOLUME 9.3 fl (7.5-11.1); PLATELET COUNT 606 K/MM3 (134-434); RBC 4.43 M/mm3 (4.00-5.60); RDW 17.4 % (11.9-15.9); WHITE BLOOD COUNT 11.4 K/mm3 (4.0-10.0)
[2019-09-23 08:00] LABS: BLOOD UREA NITROGEN 9.3 mg/dL (7-18); CALCIUM 8.7 mg/dL (8.5-10.1); CREATININE 0.6 mg/dL (0.55-1.3); POTASSIUM 3.9 mmol/L (3.5-5.1)
[2019-09-23] MEDS: ASCORBIC ACID 500 MG TABLET (FP) PO SCH (09:44)
[2019-09-23] MEDS: POLYETHYLENE GLYCOL 3350 119 GM BTL PO SCH (10:43)
--- NOTE | 2019-09-23 12:45 | PN ---
Progress Note, Physician History of Present Illness: stable no new issues - Current Medication List Current Medications: Active Medications Acetaminophen (Tylenol -) 650 mg PO Q6H PRN PRN Reason: MODERATE PAIN Ascorbic Acid (Vitamin C -) 1,000 mg PO BID [facility] Last Admin: 09/23/19 09:44 Dose: 1,000 mg Docusate Sodium (Colace Liquid -) 100 mg PO DAILY PRN PRN Reason: CONSTIPATION Gabapentin (Neurontin -) 300 mg PO [facility] Last Admin: 09/22/19 21:45 Dose: 300 mg Heparin Sodium (Porcine) (Heparin -) 5,000 unit SQ TID [facility] Last Admin: 09/23/19 05:18 Dose: 5,000 unit Piperacillin Sod/Tazobactam (Sod 3.375 gm/ Dextrose) 50 mls @ 100 mls/hr IVPB Q8H-IV [facility]; Protocol Last Admin: 09/23/19 09:40 Dose: 100 mls/hr Morphine Sulfate (Morphine 10 Mg/5 Ml Liquid) 20 mg PO Q4H PRN PRN Reason: PAIN LEVEL 1-5 Last Admin: 09/23/19 09:41 Dose: 20 mg Polyethylene Glycol (Miralax (For Daily Use) -) 17 gm PO DAILY [facility] Last Admin: 09/23/19 10:43 Dose: Not Given Senna (Senna -) 1 tab PO [facility] Last Admin: 09/22/19 21:44 Dose: 1 tab - Objective Vital Signs: Vital Signs Temperature 99.2 F 09/23/19 10:00 Pulse Rate 67 09/23/19 10:00 Respiratory Rate 18 09/23/19 10:00 Blood Pressure 140/64 09/23/19 10:00 O2 Sat by Pulse Oximetry (%) 95 09/23/19 09:00 Constitutional: Yes: No Distress, Calm Cardiovascular: Yes: S1, S2 Respiratory: Yes: Regular, CTA Bilaterally Gastrointestinal: Yes: Normal Bowel Sounds, Soft Musculoskeletal: Yes: Other Extremities: Yes: Other Neurological: Yes: Alert, Oriented Psychiatric: Yes: Alert, Oriented Labs: CBC, BMP 09/23/19 06:50 09/23/19 06:50 Assessment/Plan Problem List - Problems (1) UTI (urinary tract infection) Code(s): N39.0 - URINARY TRACT INFECTION, SITE NOT SPECIFIED Qualifiers: Urinary tract infection type: site unspecified Hematuria presence: without hematuria Qualified Code(s): N39.0 - Urinary tract infection, site not specified (2) Adenocarcinoma of right lung Code(s): C34.91 - MALIGNANT NEOPLASM OF UNSP PART OF RIGHT BRONCHUS OR LUNG (3) Neurogenic bladder Code(s): N31.9 - NEUROMUSCULAR DYSFUNCTION OF BLADDER, UNSPECIFIED (4) Paraplegia Code(s): G82.20 - PARAPLEGIA, UNSPECIFIED (5) Leukocytosis Code(s): D72.829 - ELEVATED WHITE BLOOD CELL COUNT, UNSPECIFIED (6) Tibia/fibula fracture Code(s): S82.209A - UNSP FRACTURE OF SHAFT OF UNSP TIBIA, INIT FOR CLOS FX; S82.409A - UNSP FRACTURE OF SHAFT OF UNSP FIBULA, INIT FOR CLOS FX Qualifiers: Encounter type: initial encounter Fracture type: closed Laterality: left Qualified Code(s): S82.202A - Unspecified fracture of shaft of left tibia, initial encounter for closed fracture; S82.402A - Unspecified fracture of shaft of left fibula, initial encounter for closed fracture plan ct abx awaiting for identification and sensitivities of the bacteria rest as per the team
[2019-09-23 13:25] VITALS: BP 97/46; PULSE 73; TEMP 98.6
--- NOTE | 2019-09-23 14:19 | DS ---
Physical Exam: SUBJECTIVE: Patient seen and examined. No acute events overnight. Patient denies chest pain, abd pain, SOB, fever, chills, or other concerns. OBJECTIVE: Vital Signs Period Temp Pulse Resp BP Sys/Roche Pulse Ox Last 24 Hr 98 F-99.2 F 64-79 17-20 97-140/46-72 95-96 PHYSICAL EXAM GENERAL: The patient is awake, alert, and fully oriented, in no acute distress. HEAD: Normal with no signs of trauma. EYES: EOMI, no scleral icterus, no ptosis ENT: moist mucous membranes NECK: Trachea midline, full range of motion, supple. LUNGS: clear to auscultation bilaterally, no wheezes, no crackles, no accessory muscle use. HEART: Regular rate and rhythm, S1, S2 without murmur, rub or gallop. ABDOMEN: Soft, nondistended, normoactive bowel sounds, no guarding, no rebound, no hepatosplenomegaly, no masses : brambila in place EXTREMITIES: 2+ pulses, warm, well-perfused. Right wrist fused. emaciated lower extremities. NEUROLOGICAL: Normal speech, gait not observed. AAOx3. sensation intact throughout PSYCH: Normal mood, normal affect SKIN: Warm, dry, normal turgor, no rashes or lesions noted LABS Laboratory Results - last 24 hr 09/23/19 09/23/19 06:50 06:50 WBC 11.4 H RBC 4.43 Hgb 13.0 Hct 39.8 MCV 90.0 MCH 29.3 MCHC 32.6 RDW 17.4 H Plt Count 606 H MPV 9.3 Sodium 140 Potassium 3.9 Chloride 106 Carbon Dioxide 29 Anion Gap 5 L BUN 9.3 Creatinine 0.6 Est GFR (CKD-EPI)AfAm 121.43 Est GFR (CKD-EPI)NonAf 104.77 Random Glucose 94 Calcium 8.7 HOSPITAL COURSE: Date of Admission:09/21/19 Date of Discharge: 09/23/19 64 y/o/m with a PMHx of COPD, Right lung adenocarcinoma (no chemo/rads/ surgery) , 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 Patient was discharged home on 09/[address] and follow up appointment with Dr. Duke on 10/01 but returned to ED due to abd pain and burning pain. Patient's UA had increased bacteria count compared to UA on previous admission. Urine culture was positive and patient was treated with Zosyn until sensitivities were finalized. Patient's white count improved and blood cultures have been negative to date. Patient safe for discharge on Augmentin 875mg BID for 7 days as per ID. Patient to be discharged home with brambila in place as he was found to have urinary retention on previous admission. Patient to follow up with Dr. Duke, Urology, on 10/01 for further recommendations on bramibla catheter. Minutes to complete discharge: 36 Discharge Summary Problems reviewed: Yes Reason For Visit: UTI Current Active Problems UTI (urinary tract infection) (Acute) Condition: Stable - Instructions Diet, Activity, Other Instructions: You presented to the hospital complaining of abdominal pain and a burning pain. You were diagnosed with a UTI and seen by Infectious disease specialist. You were started on antibiotics with improvement. You are being discharged with continuing antibiotics. You will be discharged with a brambila catheter as you were found to be retaining urine during your last admission and have a follow up appointment scheduled for 10/01/[address] Duke. Please keep the brambila catheter site clean and dry until you follow up with your Urologist. You were seen by Hematology/Oncology during your last admission for your lung mass; however you stated that you did not want any treatment at this time but a referral will be included for you if you would like further evaluation and treatment options. Medication changes: 1. START Augmentin 875mg twice a day for 7 days for continuing treatment of your UTI. Continue taking your home medications as directed. Follow up: 1. Follow up with your primary care physician within one-two days after discharge. A referral has been provided. 2. Follow up with your Urologist, an appointment has been made for you on October 01, [address] Duke at his clinic in [place] at [address] [place] [address] [address], [place] [address]. Discuss further maintenance of your brambila catheter at your follow up appointment. 3. Follow up with Hematology/Oncology after discharge regarding your right lung mass (adenocarcinoma) for further evaluation and treatment. Return to the nearest Emergency Department if you experience worsening symptoms , subjective fevers, chills, shortness of breath, chest pain, palpitations, abdominal pain, nausea vomiting, diarrhea, painful urination, worsening bleeding with urination, or any trauma. Referrals: Scot Duke MD [Staff Physician] - Juan Manuel Kang MD [Staff Physician] - Zheng Chambers MD [Staff Physician] - Disposition: HOME - Home Medications Comprehensive Discharge Medication List: Ambulatory Orders Diazepam [Valium] 10 mg PO TID PRN tablet MDD 30mg 06/17/18 Morphine 10 mg/5 ml Liquid [Morphine 10 mg/5 mL Liquid -] 20 mg PO Q4H MDD 60mg 06/14/19 Ascorbic Acid [Vitamin C -] 1,000 mg PO BID 30 Days #120 tablet 09/17/19 Gabapentin [Neurontin -] 300 mg PO HS 30 Days #30 capsule 09/17/19 Methenamine Hippurate [Hiprex [Nf] -] 1 gm PO BID 30 Days #60 tablet 09/17/19 Tamsulosin HCl [Flomax -] 0.4 mg PO DAILY@0830 30 Days #30 cap.er.24h 09/17/19 Amox-Tr/K Cl [Augmentin - 875Mg Tablet] 1 tab PO BID 7 Days #14 tablet 09/23/19 This patient is new to me today: No Emergency Visit: Yes ED Registration Date: 09/21/19 Care time: The patient presented to the Emergency Department on the above date and was hospitalized for further evaluation of their emergent condition. Critical Care patient: No - Discharge Referral Referred to [facility] No ATTENDING PHYSICIAN STATEMENT I saw and evaluated the patient. I reviewed the resident's note and discussed the case with the resident. I agree with the resident's findings and plan as documented. SUBJECTIVE: OBJECTIVE: ASSESSMENT AND PLAN:
--- NOTE | 2019-09-23 15:40 | PN ---
Teaching Attending Note Name of Resident: Jessie Moses ATTENDING PHYSICIAN STATEMENT I saw and evaluated the patient. I reviewed the resident's note and discussed the case with the resident. I agree with the resident's findings and plan as documented. SUBJECTIVE: Feels well - no complains. No fever/chills. No nausea/vomiting OBJECTIVE: Afebrile, Hemodynamically Stable. Last Vital Signs Temp Pulse Resp BP Pulse Ox 98.6 F 73 20 97/46 L 95 09/23/19 13:23 09/23/19 13:23 09/23/19 13:23 09/23/19 13:23 09/23/19 09:00 Heart - S1, S2, RRR Lungs - clear to auscultation Abdomen - Soft, non-tender. Bowel Sounds normal. Extremities - no calf tenderness, wasting, contractures LEs. - clear urine in brambila. Laboratory Results - last 24 hr 09/23/19 09/23/19 06:50 06:50 WBC 11.4 H RBC 4.43 Hgb 13.0 Hct 39.8 MCV 90.0 MCH 29.3 MCHC 32.6 RDW 17.4 H Plt Count 606 H MPV 9.3 Sodium 140 Potassium 3.9 Chloride 106 Carbon Dioxide 29 Anion Gap 5 L BUN 9.3 Creatinine 0.6 Est GFR (CKD-EPI)AfAm 121.43 Est GFR (CKD-EPI)NonAf 104.77 Random Glucose 94 Calcium 8.7 Current Medications Generic Name Dose Route Start Last Admin Trade Name Freq PRN Reason Stop Dose Admin Acetaminophen 650 mg 09/21/19 07:46 Tylenol - PO Q6H PRN MODERATE PAIN Ascorbic Acid 1,000 mg 09/20/19 22:00 09/23/19 09:44 Vitamin C - PO 1,000 mg BID ZAIRA Administration Docusate Sodium 100 mg 09/20/19 15:24 Colace Liquid - PO DAILY PRN CONSTIPATION Gabapentin 300 mg 09/21/19 22:00 09/22/19 21:45 Neurontin - PO 300 mg HS ZAIRA Administration Heparin Sodium (Porcine) 5,000 unit 09/20/19 22:00 09/23/19 14:15 Heparin - SQ 5,000 unit TID ZAIRA Administration Piperacillin Sod/Tazobactam 50 mls @ 100 mls/hr 09/22/19 02:00 09/23/19 09:40 Sod 3.375 gm/ Dextrose IVPB 100 mls/hr Q8H-IV ZAIRA Administration Protocol Morphine Sulfate 20 mg 09/21/19 08:00 09/23/19 09:41 Morphine 10 Mg/5 Ml Liquid PO 20 mg Q4H PRN Administration PAIN LEVEL 1-5 Polyethylene Glycol 17 gm 09/20/19 15:30 09/23/19 10:43 Miralax (For Daily Use) - PO Not Given DAILY ZAIRA Senna 1 tab 09/20/19 22:00 09/22/19 21:44 Senna - PO 1 tab HS ZAIRA Administration Home Medications Medication Instructions Recorded Diazepam [Valium] 10 mg PO TID PRN tablet MDD 30mg 06/17/18 Morphine 10 mg/5 ml Liquid 20 mg PO Q4H MDD 60mg 06/14/19 [Morphine 10 mg/5 mL Liquid -] Ascorbic Acid [Vitamin C -] 1,000 mg PO BID 30 Days #120 tablet 09/17/19 Gabapentin [Neurontin -] 300 mg PO HS 30 Days #30 capsule 09/17/19 Methenamine Hippurate [Hiprex [Nf] 1 gm PO BID 30 Days #60 tablet 09/17/19 -] Tamsulosin HCl [Flomax -] 0.4 mg PO DAILY@0830 30 Days #30 09/17/19 cap.er.24h Amox-Tr/K Cl [Augmentin - 875Mg 1 tab PO BID 7 Days #14 tablet 09/23/19 Tablet] ASSESSMENT AND PLAN: 64 year old male with history of COPD, R lung Adenocarcinoma (no CTx/RTx/Surgery ), Paraplegia sec to spinal cord transection T2-T4 in , Neurogenic bladder (intermittent self catheterization), Recurrent UTIs, recent admissions at [facility] s /p left leg distal tibial fracture (d/ryan 06/18/19), and for Urinary retention ( d/ryan 09/19/19 with brambila in situ), returns with reported abdominal pain, now resolved. 1. Acute UTI/Cystitis, catheter associated CT A/P - Diffuse bladder wall thickening suggestive of cystitis. Urine Cx - Enterococcus > 100,000 CFU/ml Has been receiving Zosyn - discussed with ID - recommendation for 7 additional days of Augmentin on discharge. Outpatient Urology follow up with Dr. Montenegro. 2. RUL Adenocarcinoma, not on treatment - for out-patient Oncology follow up. Mild persisting leukocytosis, chronic, likely sec to underlying Ca. 3. COPD - stable. No evidence of decompensation. 4. Paraplegia sec to cord transection with Neurogenic Bladder - on Gabapentin. Brambila to remain in situ pending outpatient follow up. 5. Chronic constipation due to bowel dysfunction sec to cord transection, chronic opiates - on Senna, Miralax, manual disimpaction PRN. Medically optimized for discharge with 24hr [employer]ING B[employer] ASSISTANT. Urology out-patient follow up.
== END 2019-09-23 18:18 | disposition home or self-care (01) | DRG 699 ==
LOC: JER 05:42 → JERBED 13:12 → J7W 09-21 00:21 → OBSVTOIN 09-21 15:05
DX: T83.598A Infection and inflammatory reaction due to other prosthetic device, implant and graft in urinary system, initial encounter (principal); G82.20 Paraplegia, unspecified; N39.0 Urinary tract infection, site not specified; J44.9 Chronic obstructive pulmonary disease, unspecified; N31.9 Neuromuscular dysfunction of bladder, unspecified; K59.09 Other constipation; G89.29 Other chronic pain; D72.829 Elevated white blood cell count, unspecified; Z85.118 Personal history of other malignant neoplasm of bronchus and lung; Z74.01 Bed confinement status
CPT/HCPCS: 36415; 74177-TC; 80048; 80053; 81003; 85025; 85027; 87040; 87086; 87186; 99284-25; G0378; J1644; Q9967

== ENCOUNTER 2019-10-08 08:19 | Emergency (ER) | payer OTHER, BC ==
--- NOTE | 2019-10-08 08:30 | PDOC ---
History of Present Illness - General Chief Complaint: Pain Stated Complaint: ABD PAIN Time Seen by Provider: 10/08/19 08:29 History Source: Patient Exam Limitations: No Limitations - History of Present Illness Initial Comments: 10/08/19 08:29 PCP: Dr. Kang HPI: 64yo M with a PMH of COPD, hypotension, adenocarcinoma of the right lung, paraplegia due to spinal cord transection at T2-T4, neurogenic bladder with recurrent UTI (multiple admissions at [facility] for abx), and splenectomy, presenting with abdominal pain since waking up. Patient reports pain is "in the bladder" and was present when he woke up this morning. Brambila catheter draining cloudy urine. Patient reports usually getting a condom catheter, office did not have any and placed an indwelling brambila last exchange. Reports his most recent UTI was about 1 month ago and was treated with IV abx. Baseline no sensation from nipples down, incontinent of urine and feces. Denies constipation or difficulty with BMs, no bloody or dark stools, no history of diverticulitis. No fever, chills, nausea, vomiting, cough or shortness of breath. All: NKDA Meds: per chart PMH: as above PSH: as above Past History - Travel Traveled outside of the country in the last 30 days: No Close contact w/someone who was outside of country & ill: No - Past Medical History Allergies/Adverse Reactions: Allergies Allergy/AdvReac Type Severity Reaction Status Date / Time vancomycin Allergy Verified 10/08/19 08:36 Home Medications: Ambulatory Orders Diazepam [Valium] 10 mg PO TID PRN tablet MDD 30mg 06/17/18 Morphine 10 mg/5 ml Liquid [Morphine 10 mg/5 mL Liquid -] 20 mg PO Q4H MDD 60mg 06/14/19 Ascorbic Acid [Vitamin C -] 1,000 mg PO BID 30 Days #120 tablet 09/17/19 Gabapentin [Neurontin -] 300 mg PO HS 30 Days #30 capsule 09/17/19 Methenamine Hippurate [Hiprex [Nf] -] 1 gm PO BID 30 Days #60 tablet 09/17/19 Tamsulosin HCl [Flomax -] 0.4 mg PO DAILY@0830 30 Days #30 cap.er.24h 09/17/19 Amox-Tr/K Cl [Augmentin - 875Mg Tablet] 1 tab PO BID 7 Days #14 tablet 09/23/19 Levofloxacin [Levaquin] 750 mg PO DAILY 6 Days #6 tablet 10/08/19 Anemia: No Asthma: No Cancer: No Cardiac Disorders: No CVA: No COPD: Yes CHF: No Dementia: No Diabetes: No GI Disorders: No Disorders: Yes (Recurrent UTI, 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) HTN: (Hypotension) Hypercholesterolemia: No Liver Disease: No Seizures: No Thyroid Disease: No - Surgical History Abdominal Surgery: No Appendectomy: No Cardiac Surgery: No Cholecystectomy: No Lung Surgery: No Neurologic Surgery: No Orthopedic Surgery: Yes (fracture right wrist s/p fusion) - Immunization History Td Vaccination: No Immunization Up to Date: No - Psycho Social/Smoking Cessation Hx Smoking Status: No Smoking History: Never smoked Years of Tobacco Use: 0 Have you smoked in the past 12 months: No Number of Cigarettes Smoked Daily: 3 If you are a former smoker, when did you quit?: 1986 Cigars Per Day: 0 Hx Alcohol Use: No Drug/Substance Use Hx: No Substance Use Type: None Hx Substance Use Treatment: No Review of Systems - Review of Systems Able to Perform ROS?: Yes Is the patient limited Sammarinese proficient: Yes Constitutional: No: Chills, Diaphoresis, Fever HEENTM: No: Nose Congestion, Throat Pain Respiratory: No: Cough, Shortness of Breath Cardiac (ROS): No: Chest Pain, Irregular Heart Rate, Lightheadedness, Palpitations, Syncope, Chest Tightness ABD/GI: Yes: Poor Appetite (yesterday). No: Constipated, Diarrhea, Nausea, Rectal Bleeding, Vomiting : Yes: See HPI, Pain, Other (cloudy urine). No: Burning, Dysuria, Frequency Musculoskeletal: No: Back Pain, Muscle Pain, Muscle Weakness Integumentary: No: Pallor, Pruritus, Rash Neurological: No: Headache, Numbness, Tingling, Weakness Hematologic/Lymphatic: No: Anemia, Blood Clots, Easy Bleeding All Other Systems: Reviewed and Negative *Physical Exam - Physical Exam 10/08/19 09:04 Vitals reviewed, AFVSS GEN: Well appearing, appears stated age, NAD, comfortable. AAOx3. HEENT: NCAT, EOMI. Sclera anicteric, noninjected. No facial asymmetry. Moist mucous membranes. Normal voice. Trachea midline. CV: RRR, S1/S2, no murmurs / rubs / gallops appreciated. LUNG: CTAB, normal work of breathing. No wheezes, rales, rhonchi. No cough. Speaking full sentences. GI: Soft, Non-distended, +Tender suprapubically, no guarding, no rebound. No masses. Neg CVAT b/l. EXTREMITIES: 2+ distal pulses. No LE edema. Hemiplegic nipples down. SKIN: Warm, dry, no rashes appreciated, non-jaundiced. PSYCH: Normal mood and affect. Cooperative and appropriate. NEURO: CN grossly intact. Hemiplegia, sensory deficit nipples down. ED Treatment Course - LABORATORY CBC & Chemistry Diagram: 10/08/19 08:49 10/08/19 11:30 Medical Decision Making - Medical Decision Making 10/08/19 08:57 64yo M with a PMH of COPD, hypotension, adenocarcinoma of the right lung, paraplegia due to spinal cord transection at T2-T4, neurogenic bladder with recurrent UTI (multiple admissions at [facility] for abx), and splenectomy, presenting with abdominal pain since waking up. History notable for recurrent UTIs, no constitutional symptoms. Exam notable for non-toxic appearance, suprapubic tenderness, cloudy urine, stable vitals, no fever. DDX: UTI, Cystitis, Pyelonephritis, Bladder spasms, less likely ureterolithiasis, GI etiology. - CBC, CMP, Lipase - UA, UCx - Ofirmev 10/08/19 12:02 - UA with UTI - Hx 06/26 Acinetobacter, Citrobacter UTIs, 09/21/19 Cx grew agustin-sensitive enterococcus faecalis - CMP pending 10/08/19 12:30 - Levaquin 750mg for 7 days - Patient non-weight bearing or ambulatory, low risk for tendon rupture - Patient requests call to [employer]ER back to the hospital who had returned to patient' s house - Call placed to patient's [employer] TECH[employer]ICAL OFFICER Friday ([phone]), no answer, no voicemail set up 10/08/19 12:45 - Second call placed to patient's [employer] OFFICER, no answer Dispo: Home Discharge - Discharge Information Problems reviewed: Yes Clinical Impression/Diagnosis: UTI (urinary tract infection) Qualifiers: Urinary tract infection type: site unspecified Hematuria presence: with hematuria Qualified Code(s): N39.0 - Urinary tract infection, site not specified Condition: Stable Disposition: HOME - Admission No - Additional Discharge Information Prescriptions: Levofloxacin [Levaquin] 750 mg PO DAILY 6 Days #6 tablet - Follow up/Referral Referrals: Scot Duke MD [Staff Physician] - - Patient Discharge Instructions Patient Printed Discharge Instructions: DI for Urinary Tract Infection (UTI) Additional Instructions: A prescription has been sent to your pharmacy for antibiotics for your urinary tract infection. Take this as directed for the next 6 days. Follow up with your urologist and PCP in the next week. Please return to the ED for any new or concerning symptoms. These may include but are not limited to: nausea, vomiting, new back pain, alterations in your mental status. - Post Discharge Activity
--- NOTE | 2019-10-08 08:59 | PDOC ---
*Physical Exam - Vital Signs Last Vital Signs Temp Pulse Resp BP Pulse Ox 97.4 F L 53 L 16 117/52 L 94 L 10/08/19 08:42 10/08/19 08:42 10/08/19 08:25 10/08/19 08:42 10/08/19 08:42 ED Treatment Course - LABORATORY CBC & Chemistry Diagram: 10/08/19 08:49 10/08/19 11:30 Medical Decision Making - Medical Decision Making 10/08/19 08:54 Patient seen as pre-attending with Dr. Munguia (PGY-1) 64 y/o male with a PMHx of neurogenic bladder, recurrent UTIs (w/recent hospitalization 09/2019 w/E Coli multiple susceptibilities), T2-T4 spinal cord transection, COPD (not on home O2), RL adenocardinoma and splenectomy here for abdominal pain. L sided, non-qualifiable, states it is over his bladder Non-toxic appearing, VS unremarkable, Equivocal LLQ TTP Will check labs, UA/UCx. Reassess. 10/08/19 09:00 As per EMR, patient discharged on a seven day course Augmentin (875 mg BID) on 09/27 and urology follow-up; patient states his cathether was changed at that time. 10/08/19 12:25 UA w/ 3+ LE, 1+ Blood, 100 Bacteria Hx 06/26 Acinetobacter, Citrobacter UTIs, 09/21/19 Cx grew agustin-sensitive enterococcus faecalis Will give Levaquin and d/c home. Discharge - Discharge Information Problems reviewed: Yes Clinical Impression/Diagnosis: UTI (urinary tract infection) Qualifiers: Urinary tract infection type: site unspecified Hematuria presence: with hematuria Qualified Code(s): N39.0 - Urinary tract infection, site not specified Condition: Stable Disposition: HOME - Additional Discharge Information Prescriptions: Levofloxacin [Levaquin] 750 mg PO DAILY 6 Days #6 tablet - Follow up/Referral Referrals: Scot Duke MD [Staff Physician] - - Patient Discharge Instructions Patient Printed Discharge Instructions: DI for Urinary Tract Infection (UTI) Additional Instructions: A prescription has been sent to your pharmacy for antibiotics for your urinary tract infection. Take this as directed for the next 6 days. Follow up with your urologist and PCP in the next week. Please return to the ED for any new or concerning symptoms. These may include but are not limited to: nausea, vomiting, new back pain, alterations in your mental status. - Post Discharge Activity
--- NOTE | 2019-10-08 09:05 | PDOC ---
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 Patient reports pain is "in the bladder" and was present when he woke up this morning. Brambila catheter draining cloudy urine. Patient reports usually getting a condom catheter, office did not have any and placed an indwelling brambila last exchange. prior notes reviewed, last admission 09/21 to 09/23/19 where he was treated with zosyn, dc'd on augmentin , brambila placed and told to f/u Dr Duke. Prior urine cultures have shown enterococcus most recently 09/20/2019 that was pansensitive to antibiotics also previously with Citrobacter, staph epidermidis likely contaminant, Acetobacter, Serratia and yeast 10/08/19 09:09 - Physicial Exam PE: 10/08/19 09:03 Agree with the resident's HPI and PE as documented in the electronic medical record. NAD, well appearing, EOMI, PERRL, nl conjunctiva, anicteric; neck supple. lungs clear, RRR, abdomen soft left lower quadrant and suprapubic tenderness no rebound, guarding. No CVA tenderness back nontender. Catheter in place. MELO x4, no focal neuro deficits. No peripheral edema. normal color for ethnicity, WWP. Contracted extremities and lower extremities - Medical Decision Making 10/08/19 09:04 Vital Signs Temp Pulse Resp BP Pulse Ox 97.4 F L 53 L 16 117/52 L 94 L 10/08/19 08:42 10/08/19 08:42 10/08/19 08:25 10/08/19 08:42 10/08/19 08:42 Vital signs reviewed within normal limits, no fever, normotensive. Differential diagnosis includes cystitis, hematuria, bladder spasms, incontinence, pyelonephritis prior notes reviewed, last admission 09/21 to 1/16/20 where he was treated with zosyn, dc'd on augmentin , brambila placed and told to f/u Dr Duke. Prior urine cultures have shown enterococcus most recently 09/20/2019 that was pansensitive to antibiotics also previously with Citrobacter, staph epidermidis likely contaminant, Acetobacter, Serratia and yeast prior cultures reviewed, levaquin sensitive to the multiple organisms allegy to vancomycin Patient without any septic symptoms nontoxic-appearing, patient symptoms are most consistent with his usual UTI versus colonization. Will obtain basic labs UA sample and culture and based on that we will treat appropriately normal labs/Cr function. no wbc ct, lytes wnl Discharge home, stable condition, PCP and urology followup Dr Duke for brambila management/UTI management. and return precautions discussed. f/u urine cultures. x 1 week course of levaquin. low risk for tendon rupture/side effect, as pt is paraplegic, relatively immobile. 10/08/19 09:08 10/08/19 13:31
[2019-10-08] MEDS ORDERED: ACETAMINOPHEN 1000 MG/100 ML VIAL (NON FORMULARY) IVPB ONE (09:08)
[2019-10-08] MEDS ORDERED: morphine CARPU-JECT 4 MG/1 ML DISP.SYRIN IVPUSH ONE (09:20)
[2019-10-08] MEDS ORDERED: morphine SULFATE 4 MG/ML VIAL ONE (09:22)
[2019-10-08 09:27] LABS: BASO % 0.1 % (0-2.0); EOS % 1.9 % (0-4.5); HEMATOCRIT 41.7 % (35.4-49); HEMOGLOBIN 13.9 GM/dL (11.7-16.9); LYMPH % 12.3 % (8-40); MCH 29.2 pg (25.7-33.7); MCHC 33.4 g/dl (32.0-35.9); MEAN CELL VOLUME 87.3 fl (80-96); MEAN PLT VOLUME 9.5 fl (7.5-11.1); MONO % 6.2 % (3.8-10.2); NEUT % 79.5 % (42.8-82.8); PLATELET COUNT 658 K/MM3 (134-434); RBC 4.78 M/mm3 (4.00-5.60); WHITE BLOOD COUNT 10.6 K/mm3 (4.0-10.0)
[2019-10-08 10:51] LABS: EPI CELLS 1.4 /HPF (0-5/HPF); HYALINE CASTS 62 /lpf (0-8); PH,URINE 5.5 (5.0-8.0); URINE APPEARANCE CLOUDY; URINE BILIRUBIN NEGATIVE (NEGATIVE); URINE COLOR YELLOW; URINE GLUCOSE (UA) NEGATIVE (NEGATIVE); URINE KETONE 1+ (NEGATIVE); URINE LEUK ESTERASE 2+ (NEGATIVE); URINE NITRITE NEGATIVE (NEGATIVE); URINE PROTEIN 1+ (NEGATIVE); URINE RBC 7 /hpf (0-4); URINE UROBILINOGEN 0.2 mg/dL (0.2-1.0); URINE WBC 89 /hpf (0-5)
[2019-10-08] MEDS ORDERED: levoFLOXacin 750 MG TABLET PO SCH (12:30)
[2019-10-08 13:02] LABS: ALBUMIN 2.6 g/dl (3.4-5.0); BILIRUBIN,TOTAL 0.4 mg/dL (0.2-1); BLOOD UREA NITROGEN 6.7 mg/dL (7-18); CREATININE 0.5 mg/dL (0.55-1.3); POTASSIUM 4.2 mmol/L (3.5-5.1); TOT PROT 6.7 g/dl (6.4-8.2)
[2019-10-08 14:22] VITALS: BP 120/67; PULSE 76; TEMP 98
== END 2019-10-08 14:34 | disposition home or self-care (01) ==
LOC: JER 08:19 → SUPCPDRO 08:19 → JER 14:34
PROC: 3E033NZ Introduction of Analgesics, Hypnotics, Sedatives into Peripheral Vein, Percutaneous Approach (ICD-10-PCS; principal; 2019-10-08)
DX: N39.0 Urinary tract infection, site not specified (principal); Z88.8 Allergy status to other drugs, medicaments and biological substances; J44.9 Chronic obstructive pulmonary disease, unspecified; E03.9 Hypothyroidism, unspecified; Z85.118 Personal history of other malignant neoplasm of bronchus and lung; S24.102A Unspecified injury at T2-T6 level of thoracic spinal cord, initial encounter; G82.20 Paraplegia, unspecified
CPT/HCPCS: 36415; 80053; 81003; 83690; 85025; 87086; 87186; 96374; 99282-25

== ENCOUNTER 2019-10-13 17:34 | Inpatient (IN) | payer OTHER, BC ==
--- NOTE | 2019-10-13 18:31 | PDOC ---
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 Per the patient, he states he was lying in bed when he reached over with his left hand (right hand has a fusion in the wrist severely limiting dexterity) when he had a falling motion. Per the patient, he hit his left hand on the dorsal side against a steel side table with immediate onset of pain and limited ROM. He denies hitting other body parts and denies head trauma and LOC. Currently, the patient states he has limited mobility of his left hand. He has 24/7 nursing care in his home. Denies the following: prodromal symptoms prior to the strike, fever, chills, SOB, chest pain, nausea, vomiting, abdominal pain, and ears/nose/throat pain. Allergies: vancomycin Past History - Past Medical History Allergies/Adverse Reactions: Allergies Allergy/AdvReac Type Severity Reaction Status Date / Time vancomycin Allergy Verified 10/13/19 18:10 Home Medications: Ambulatory Orders Diazepam [Valium] 10 mg PO TID PRN tablet MDD 30mg 06/17/18 Morphine 10 mg/5 ml Liquid [Morphine 10 mg/5 mL Liquid -] 20 mg PO Q4H MDD 60mg 06/14/19 Anemia: No Asthma: No Cancer: No Cardiac Disorders: No CVA: No COPD: No CHF: No Dementia: No Diabetes: No GI Disorders: No Disorders: Yes (Recurrent UTI, 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) HTN: (Hypotension) Hypercholesterolemia: No Liver Disease: No Seizures: No Thyroid Disease: No - Surgical History Abdominal Surgery: No Appendectomy: No Cardiac Surgery: No Cholecystectomy: No Lung Surgery: No Neurologic Surgery: No Orthopedic Surgery: Yes (fracture right wrist s/p fusion) - Immunization History Td Vaccination: No Immunization Up to Date: No - Psycho Social/Smoking Cessation Hx Smoking Status: No Smoking History: Never smoked Years of Tobacco Use: 0 Have you smoked in the past 12 months: No Number of Cigarettes Smoked Daily: 3 If you are a former smoker, when did you quit?: 1985 Cigars Per Day: 0 Information on smoking cessation initiated: No Hx Alcohol Use: No Drug/Substance Use Hx: No Substance Use Type: None Hx Substance Use Treatment: No Review of Systems - Review of Systems Able to Perform ROS?: Yes Is the patient limited [place] proficient: No Constitutional: No: Chills, Diaphoresis, Fever, Weakness HEENTM: No: Eye Pain, Ear Pain, Nose Pain, Throat Pain, Mouth Pain Respiratory: No: Cough, Shortness of Breath, Hemoptysis Cardiac (ROS): No: Chest Pain, Lightheadedness, Palpitations, Chest Tightness ABD/GI: No: Constipated, Diarrhea, Nausea, Rectal Bleeding, Vomiting, Tarry Stools : No: Burning, Dysuria, Hematuria Musculoskeletal: Yes: Joint Pain (left wrist), Joint Swelling (left wrist). No : Back Pain Integumentary: No: Bruising, Erythema, Rash Neurological: No: Headache, Numbness, Tingling, Tremors Psychiatric: No: Change in Appetite Endocrine: No: Unexplained Weight Loss Hematologic/Lymphatic: No: Anemia *Physical Exam - Vital Signs Last Vital Signs Temp Pulse Resp BP Pulse Ox 97.7 F 71 18 121/90 94 L 10/13/19 18:04 10/13/19 18:04 10/13/19 18:04 10/13/19 18:04 10/13/19 18:04 - Physical Exam General Appearance: Yes: Nourished, Appropriately Dressed. No: Apparent Distress, Intoxicated HEENT: positive: EOMI, FRANCIE, Normal Voice, Symmetrical, Pharynx Normal, Hearing Grossly Normal. negative: Pale Conjunctivae, Scleral Icterus (R), Scleral Icterus (L), Muffled/Hoarse voice, Pharyngeal Erythema, Tonsillar Exudate, Tonsillar Erythema, Nasal Congestion, Rhinorrhea, Sinus Tenderness, Excessive drooling Neck: positive: Trachea midline, Supple. negative: Tender, Lymphadenopathy (R) , Lymphadenopathy (L) Respiratory/Chest: positive: Lungs Clear, Normal Breath Sounds. negative: Chest Tender, Respiratory Distress, Accessory Muscle Use Cardiovascular: positive: Regular Rhythm, Regular Rate, S1, S2. negative: Systolic Murmur Gastrointestinal/Abdominal: positive: Normal Bowel Sounds, Flat, Soft. negative : Tender, Distended, Guarding, Rebound Lymphatic: negative: Adenopathy Musculoskeletal: negative: Normal Inspection (contraction in the legs bilaterally. inability to extend digits in right hand with scar noted on the dorsal right wrist. Swelling noted in the left wrist and hand dorsal side at the site of 3-5th MTP. ), CVA Tenderness, Vertebral Tenderness Extremity: positive: Normal Capillary Refill, Tender (reference msk note). negative: Normal Range of Motion (unable to ROM fully his left wrist. Right wrist has chronic limitations of ROM), Coldness, Cyanosis Integumentary: positive: Normal Color, Dry, Warm Neurologic: positive: Fully Oriented, Alert, Normal Mood/Affect. negative: Motor Strength 5/5 (paraplegia from T4 and distal. 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 Concerning for fracture vs sublaxation of the left wrist. Will obtain imaging. will obtain basic blood work. In addition, patient had profuse diarrhea in the department with a strong odor of c-diff. c-diff toxin ordered. per the patient, he was on levaquin 1 week ago for UTI secondary to urinary retention secondary to neurogenic bladder. Laboratory Tests 10/13/19 10/13/19 22:10 22:10 WBC 17.3 H RBC 4.62 Hgb 13.4 Hct 40.7 MCV 88.1 MCH 29.0 MCHC 32.9 RDW 16.7 H Plt Count 560 H MPV 9.0 Absolute Neuts (auto) 13.9 H Neutrophils % 80.5 Lymphocytes % 8.5 D Monocytes % 10.3 H Eosinophils % 0.7 Basophils % 0.0 Nucleated RBC % 0 Sodium 132 L Potassium 4.5 Chloride 98 Carbon Dioxide 28 Anion Gap 6 L BUN 5.3 L Creatinine 0.5 L Est GFR (CKD-EPI)AfAm 130.88 Est GFR (CKD-EPI)NonAf 112.92 Random Glucose 112 H Calcium 8.8 Total Bilirubin 0.5 AST 19 ALT 14 Alkaline Phosphatase 133 H Total Protein 6.8 Albumin 2.7 L Patient was given 4 mg of morphine for analgesia control Patient was signed out to Dr. Carl for further work up and management. Discharge - Discharge Information Problems reviewed: Yes Clinical Impression/Diagnosis: Left wrist injury - Follow up/Referral Referrals: Juan Manuel Kang MD [Primary Care Provider] - - Patient Discharge Instructions - Post Discharge Activity
--- NOTE | 2019-10-13 19:23 | PDOC ---
Attending Attestation - Resident Resident Name: David Astudillo - ED Attending Attestation I have performed the following: I have examined & evaluated the patient, The case was reviewed & discussed with the resident, I agree w/resident's findings & plan - HPI HPI: 10/13/19 23:11 see resident hpi - Physicial Exam PE: 10/13/19 23:11 see resident exam - Medical Decision Making 10/13/19 23:11 64-year-old male with history of spinal cord injury and triplegia status post fall with pain to left hand and wrist There is no displaced fracture noted on x-ray, patient placed in splint We will admit to medical service as patient now has no usable limb for further management and OT evaluation
[2019-10-13] MEDS ORDERED: morphine CARPU-JECT 4 MG/1 ML DISP.SYRIN IVPUSH ONE (20:14)
[2019-10-13] MEDS ORDERED: morphine SULFATE 4 MG/ML VIAL ONE (20:23)
--- NOTE | 2019-10-13 22:12 | PDOC ---
*Physical Exam - Vital Signs Last Vital Signs Temp Pulse Resp BP Pulse Ox 97.7 F 71 18 120/92 95 10/13/19 18:04 10/13/19 18:04 10/13/19 18:04 10/13/19 21:10 10/13/19 21:10 ED Treatment Course - LABORATORY CBC & Chemistry Diagram: 10/14/19 08:46 10/14/19 08:46 - Medications Given in the ED: ED Medications Discontinued Medications Generic Name Dose Route Start Last Admin Trade Name Sahra PRN Reason Stop Dose Admin Morphine Sulfate 4 mg 10/13/19 20:14 10/13/19 21:11 Morphine Injection - IVPUSH 10/13/19 20:15 4 mg ONCE ONE Administration Medical Decision Making - Medical Decision Making 10/13/19 22:09 Pt received on sign out from Dr. Astudillo. 64 y/o male. Finished course of levaquin for UTI 1 week ago. Fell from bed, hit left hand on table with subsequent swelling. Pt is paraplegic from below the axillas. F/u XR left hand/wrist. F/u labs. Plan to admit to hospitalist (Dr. Kang) for rehab placement. 10/13/19 23:04 XR shows no acute fracture. Soft splint applied for support. 10/13/19 23:43 D/w the hospitalist who accepts the patient for admission. Discharge - Discharge Information Problems reviewed: Yes Clinical Impression/Diagnosis: Left wrist injury Condition: Stable - Admission Yes - Follow up/Referral - Patient Discharge Instructions - Post Discharge Activity
[2019-10-13 22:21] LABS: EOS % 0.7 % (0-4.5); HEMATOCRIT 40.7 % (35.4-49); HEMOGLOBIN 13.4 GM/dL (11.7-16.9); LYMPH % 8.5 % (8-40); MCHC 32.9 g/dl (32.0-35.9); MEAN CELL VOLUME 88.1 fl (80-96); MONO % 10.3 % (3.8-10.2); NEUT % 80.5 % (42.8-82.8); PLATELET COUNT 560 K/MM3 (134-434); RBC 4.62 M/mm3 (4.00-5.60); RDW 16.7 % (11.9-15.9); WHITE BLOOD COUNT 17.3 K/mm3 (4.0-10.0)
[2019-10-13 22:57] LABS: ALBUMIN 2.7 g/dl (3.4-5.0); BILIRUBIN,TOTAL 0.5 mg/dL (0.2-1); BLOOD UREA NITROGEN 5.3 mg/dL (7-18); CALCIUM 8.8 mg/dL (8.5-10.1); CREATININE 0.5 mg/dL (0.55-1.3); TOT PROT 6.8 g/dl (6.4-8.2)
[2019-10-13 22:58] LABS: POTASSIUM 4.5 mmol/L (3.5-5.1)
[2019-10-14] MEDS ORDERED: KETOROLAC TROMETHAMINE 15 MG/ML VIAL IVPUSH ONE (00:26)
[2019-10-14] MEDS ORDERED: KETOROLAC TROMETHAMINE 15 MG/ML VIAL ONE ×2 (00:45→06:43)
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
[2019-10-14] MEDS ORDERED: KETOROLAC TROMETHAMINE 30 MG/1 ML VIAL IVPUSH SCH (03:00)
[2019-10-14] MEDS ORDERED: KETOROLAC TROMETHAMINE 15 MG/ML VIAL IVPUSH PRN (03:10)
--- NOTE | 2019-10-14 03:33 | PN ---
Teaching Attending Note Name of Resident: Nigel Edwards ATTENDING PHYSICIAN STATEMENT I saw and evaluated the patient. I reviewed the resident's note and discussed the case with the resident. I agree with the resident's findings and plan as documented. 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 At baseline he is paralyzed from his upper chest down including his right upper extremity. Has full function of his left upper extremity. After attempting to break his fall prior to arrival he reported pain in his left wrist with some tenderness to touch. No decreased sensation.No trauma to his head or any other part of body reported.He reports 24/7 aid at his home. Patient noted to be taking Levaquin for a UTI, took Levaquin for about 1 week and stopped taking it about 3 days prior. Reports constipation at baseline however had a large BM in the emergency room on this arrival. OBJECTIVE: Last Vital Signs Temp Pulse Resp BP Pulse Ox 97.7 F 66 18 130/64 92 L 10/13/19 18:04 10/14/19 02:29 10/14/19 02:29 10/14/19 02:29 10/14/19 02:29 GENERAL: Well developed, well nourished. Awake and alert. No acute distress. HEENT: Normocephalic, atraumatic. PERRLA, EOMI. No conjunctival pallor. Sclera are non- icteric. Moist mucous membranes. NECK: Supple. Full ROM. No JVD. Carotid pulses 2+ and symmetric, without bruits. No thyromegaly. No lymphadenopathy. CARDIOVASCULAR: Regular rate and rhythm. No murmurs, rubs, or gallops. Distal pulses are 2+ and symmetric. PULMONARY: No evidence of respiratory distress. Lungs clear to auscultation bilaterally. No wheezing, rales or rhonchi. ABDOMINAL: Soft. Non-tender. Non-distended. No rebound or guarding. No organomegaly. Normoactive bowel sounds. MUSCULOSKELETAL Left mid forearm/wrist anterior tenderness to palpation. EXTREMITIES: No cyanosis. No clubbing. No edema. No calf tenderness. SKIN: Warm and dry. Normal capillary refill. No decubitus ulcers noted however large external hemorrhoids present PSYCHIATRIC: Cooperative. Good eye contact. Appropriate mood and affect. Sharp catheter presentstated that was inserted about 1 week ago Abnormal Lab Results 10/13/19 10/13/19 22:10 22:10 WBC 17.3 H RDW 16.7 H Plt Count 560 H Absolute Neuts (auto) 13.9 H Monocytes % 10.3 H Sodium 132 L Anion Gap 6 L BUN 5.3 L Creatinine 0.5 L Random Glucose 112 H Alkaline Phosphatase 133 H Albumin 2.7 L X-ray of left wrist noted -Grossly was negative for any fractures or dislocation. ASSESSMENT AND PLAN: Status post fall with likely sprain of left wrist. Given tenderness over wrist and midforearm should obtain x-ray of radius and ulna to exclude fracture.Left wrist was placed in splint. Admit to [facility] X-ray left radius and ulna Toradol 30 mg IV as needed for pain Physical therapy evaluation Better recent fall precautions #Leukocytosisuncertain cause. At this time would trend CBC, if persistent WBC would rule out infectious cause such as recurrent UTI. May be leukemoid reaction status post fall to wrist. No fevers or physical exam evidence of infection at this time. If patient has diarrhea it hospital would seek to rule out C. difficile colitis as was recently taking antibiotics. #Hypoalbuminemia #Thrombocytosissuspect secondary #Hyponatremia #Chronic Sharp catheterPlaced secondary to acute renal retention, will require frequent Sharp catheter change Urology follow-up DVT prophylaxisheparin subcutaneously
[2019-10-14] MEDS ORDERED: HEPARIN NA (PORCINE) 5,000 UNITS/ML 1ML VIAL ONE (05:59)
[2019-10-14] MEDS ORDERED: morphine SULFATE 10 MG/5 ML UNIT-DOSE CUP ONE (05:59)
[2019-10-14] MEDS ORDERED: morphine SULFATE 10 MG/5 ML UNIT-DOSE CUP PO SCH (06:00)
[2019-10-14] MEDS: HEPARIN NA (PORCINE) 5,000 UNITS/ML 1ML VIAL SQ SCH ×4 (06:42→21:32)
--- NOTE | 2019-10-14 07:52 | PDOC ---
*Physical Exam - Vital Signs Last Vital Signs Temp Pulse Resp BP Pulse Ox 97.6 F 102 H 20 122/76 95 10/14/19 06:30 10/14/19 06:30 10/14/19 06:30 10/14/19 06:30 10/14/19 06:30 ED Treatment Course - LABORATORY CBC & Chemistry Diagram: 10/14/19 08:46 10/14/19 08:46 - Medications Given in the ED: ED Medications Discontinued Medications Generic Name Dose Route Start Last Admin Trade Name Sahra PRN Reason Stop Dose Admin Ketorolac Tromethamine 15 mg 10/14/19 00:26 10/14/19 00:51 Toradol Injection - IVPUSH 10/14/19 00:27 15 mg ONCE ONE Administration Ketorolac Tromethamine 15 mg 10/14/19 03:00 10/14/19 04:14 Toradol Injection - IVPUSH 10/19/19 02:59 Not Given Q4H ZAIRA Morphine Sulfate 4 mg 10/13/19 20:14 10/13/19 21:11 Morphine Injection - IVPUSH 10/13/19 20:15 4 mg ONCE ONE Administration Medical Decision Making - Medical Decision Making 10/14/19 07:[address] Brizuela. Patient has lucency in radius that requires follow up. Discharge - Discharge Information Problems reviewed: Yes Clinical Impression/Diagnosis: Left wrist injury Condition: Stable - Follow up/Referral - Patient Discharge Instructions - Post Discharge Activity
[2019-10-14] MEDS ORDERED: SODIUM CHLORIDE 500 ML IV STA (08:40)
[2019-10-14 09:02] LABS: BASO % 0.2 % (0-2.0); EOS % 1.3 % (0-4.5); HEMATOCRIT 40.7 % (35.4-49); HEMOGLOBIN 13.5 GM/dL (11.7-16.9); LYMPH % 10.3 % (8-40); MCHC 33.2 g/dl (32.0-35.9); MEAN CELL VOLUME 87.3 fl (80-96); MEAN PLT VOLUME 8.8 fl (7.5-11.1); MONO % 12.4 % (3.8-10.2); NEUT % 75.8 % (42.8-82.8); PLATELET COUNT 496 K/MM3 (134-434); RBC 4.67 M/mm3 (4.00-5.60); WHITE BLOOD COUNT 11.7 K/mm3 (4.0-10.0)
[2019-10-14 09:26] LABS: BLOOD UREA NITROGEN 8.1 mg/dL (7-18); CALCIUM 8.7 mg/dL (8.5-10.1); CREATININE 0.5 mg/dL (0.55-1.3)
--- NOTE | 2019-10-14 11:59 | PN ---
Physical Exam: SUBJECTIVE: Patient seen and examined at the bedside. He denies any fever, chills or pain at this time. OBJECTIVE: Patient with a history of adenocarcinoma of his lung. Was evaluated by oncologist earlier this year and deemed not to be a candidate for immunotherapy and a poor candidate for chemotherapy. Patient has declined treatment for lung cancer previously with oncologist. 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 He presented to the ED on 10/13/2019 with complaints of left forearm pain after trauma earlier today. He also c/o of suprapubic pain for the past 2 days. Patient sustained trama to left forearm after he reached out from his bed and braced his fall with his left hand. 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 imaging: rad/wrist/left hand 10/13/2019: loss of bone density, degenrative changes, non healed ulnar styloid process fracture. ovoid lucency distal radius. on a splint. shoulder left 10/13/2019: no acute pathology rad/forearm left 10/13/2019: 2 views of the forearm reveal a lucency in the distal right radius. possible mets from lung cancer. Vital Signs Period Temp Pulse Resp BP Sys/Roche Pulse Ox Last 24 Hr 97.6 F-97.7 F 65-102 18-20 108-130/58-92 92-97 GENERAL: Awake, alert, and fully oriented, in no acute distress. HEAD: Normal with no signs of trauma. EYES: Pupils equal, round and reactive to light, extraocular movements intact, sclera anicteric, conjunctiva clear. No lid lag. EARS, NOSE, THROAT: Ears normal, nares patent, oropharynx clear without exudates. Moist mucous membranes. NECK: Normal range of motion, supple without lymphadenopathy, JVD, or masses. LUNGS: Breath sounds equal, clear to auscultation bilaterally. No wheezes, and no crackles. No accessory muscle use. HEART: Regular rate and rhythm, normal S1 and S2 without murmur ABDOMEN: Soft, nontender, not distended, normoactive bowel sounds, no guarding, no rebound, no masses. MUSCULOSKELETAL: history of paraplagia (h/o spinal fracture) UPPER EXTREMITIES: left arm splint LOWER EXTREMITIES: history of paraplagia (h/o spinal fracture) PSYCHIATRIC: Cooperative. Good eye contact. Appropriate mood and affect. Laboratory Results - last 24 hr 10/13/19 10/13/19 10/14/19 22:10 22:10 08:46 WBC 17.3 H 11.7 H RBC 4.62 4.67 Hgb 13.4 13.5 Hct 40.7 40.7 MCV 88.1 87.3 MCH 29.0 29.0 MCHC 32.9 33.2 RDW 16.7 H 17.0 H Plt Count 560 H 496 H MPV 9.0 8.8 Absolute Neuts (auto) 13.9 H 8.9 H Neutrophils % 80.5 75.8 Lymphocytes % 8.5 D 10.3 D Monocytes % 10.3 H 12.4 H Eosinophils % 0.7 1.3 D Basophils % 0.0 0.2 D Nucleated RBC % 0 0 Sodium 132 L Potassium 4.5 Chloride 98 Carbon Dioxide 28 Anion Gap 6 L BUN 5.3 L Creatinine 0.5 L Est GFR (CKD-EPI)AfAm 130.88 Est GFR (CKD-EPI)NonAf 112.92 Random Glucose 112 H Calcium 8.8 Total Bilirubin 0.5 AST 19 ALT 14 Alkaline Phosphatase 133 H Total Protein 6.8 Albumin 2.7 L 10/14/19 08:46 WBC RBC Hgb Hct MCV MCH MCHC RDW Plt Count MPV Absolute Neuts (auto) Neutrophils % Lymphocytes % Monocytes % Eosinophils % Basophils % Nucleated RBC % Sodium 135 L Potassium 4.0 Chloride 100 Carbon Dioxide 28 Anion Gap 7 L BUN 8.1 Creatinine 0.5 L Est GFR (CKD-EPI)AfAm 130.88 Est GFR (CKD-EPI)NonAf 112.92 Random Glucose 105 Calcium 8.7 Total Bilirubin AST ALT Alkaline Phosphatase Total Protein Albumin Active Medications Generic Name Dose Route Start Last Admin Trade Name Freq PRN Reason Stop Dose Admin Diazepam 10 mg 10/14/19 00:36 Valium - PO TID PRN ANXIETY Heparin Sodium (Porcine) 5,000 unit 10/14/19 06:00 10/14/19 06:42 Heparin - SQ Not Given TID ZAIRA Ketorolac Tromethamine 15 mg 10/14/19 03:10 10/14/19 07:03 Toradol Injection - IVPUSH 10/19/19 02:59 15 mg Q4H PRN Administration PAIN LEVEL 7 - 10 ASSESSMENT/PLAN: Problem List - Problems (1) Left wrist injury Assessment/Plan: rad/wrist/left hand 10/13/2019: loss of bone density, degenrative changes, non healed ulnar styloid process fracture. ovoid lucency distal radius. on a splint. shoulder left 10/13/2019: no acute pathology rad/forearm left 10/13/2019: 2 views of the forearm reveal a lucency in the distal right radius. possible mets from lung cancer. ortho evaluation, pain management. Code(s): S69.92XA - UNSP INJURY OF LEFT WRIST, HAND AND FINGER(S), INIT ENCNTR (2) Adenocarcinoma of right lung Assessment/Plan: Patient has been evaluated by oncologist in the past and not a candidate for chemotherapy. Code(s): C34.91 - MALIGNANT NEOPLASM OF UNSP PART OF RIGHT BRONCHUS OR LUNG (3) Neurogenic bladder Assessment/Plan: chronic brambila catheter. maintain output. Code(s): N31.9 - NEUROMUSCULAR DYSFUNCTION OF BLADDER, UNSPECIFIED (4) Paraplegia Assessment/Plan: bed bound s/p spinal injury Code(s): G82.20 - PARAPLEGIA, UNSPECIFIED (5) Leukocytosis Assessment/Plan: trending down, no fevers pending ua/uc Code(s): D72.829 - ELEVATED WHITE BLOOD CELL COUNT, UNSPECIFIED (6) Prophylactic measure Assessment/Plan: fen tolerating po monitor electrolyes low salt diet full code Code(s): Z29.9 - ENCOUNTER FOR PROPHYLACTIC MEASURES, UNSPECIFIED Visit type - Emergency Visit Emergency Visit: Yes ED Registration Date: 10/13/19 Care time: The patient presented to the Emergency Department on the above date and was hospitalized for further evaluation of their emergent condition. - New Patient This patient is new to me today: Yes Date on this admission: 10/14/19 - Critical Care Critical Care patient: No - Discharge Referral Referred to [facility] No
[2019-10-14 13:43] VITALS: BMI 19.1
--- NOTE | 2019-10-14 14:26 | EKG ---
Test Reason : Blood Pressure : / mmHG Vent. Rate : 067 BPM Atrial Rate : 067 BPM P-R Int : 150 ms QRS Dur : 078 ms QT Int : 400 ms P-R-T Axes : 073 075 084 degrees QTc Int : 422 ms NORMAL SINUS RHYTHM NORMAL ECG WHEN COMPARED WITH ECG OF 09-SEP-2019 18:40, NO SIGNIFICANT CHANGE WAS FOUND Confirmed by ROCIO NI MD ([id number]) on 10/14/2019 2:26:16 PM Referred By: Confirmed By:ROCIO NI MD
[2019-10-14] MEDS: KETOROLAC TROMETHAMINE 15 MG/ML VIAL IVPUSH PRN (16:18)
[2019-10-14 19:48] LABS: EPI CELLS 0.3 /HPF (0-5/HPF); HYALINE CASTS 3 /lpf (0-8); PH,URINE 6.5 (5.0-8.0); URINE APPEARANCE CLEAR; URINE BACTERIA 117.8 /hpf (NEGATIVE); URINE BILIRUBIN NEGATIVE (NEGATIVE); URINE COLOR YELLOW; URINE GLUCOSE (UA) NEGATIVE (NEGATIVE); URINE KETONE NEGATIVE (NEGATIVE); URINE LEUK ESTERASE 2+ (NEGATIVE); URINE NITRITE NEGATIVE (NEGATIVE); URINE PROTEIN 1+ (NEGATIVE); URINE UROBILINOGEN 0.2 mg/dL (0.2-1.0); URINE WBC 38 /hpf (0-5)
[2019-10-14] MEDS: diazePAM 5 MG TABLET PO PRN (21:29)
[2019-10-14 21:48] LABS: URINE RBC 3.8 /hpf (0-4)
[2019-10-14] MEDS: morphine SULFATE 10 MG/5 ML UNIT-DOSE CUP PO PRN (21:59)
[2019-10-15] MEDS: morphine SULFATE 10 MG/5 ML UNIT-DOSE CUP PO PRN ×3 (04:15→21:12)
[2019-10-15] MEDS: HEPARIN NA (PORCINE) 5,000 UNITS/ML 1ML VIAL SQ SCH ×3 (05:46→21:14)
[2019-10-15] MEDS: KETOROLAC TROMETHAMINE 15 MG/ML VIAL IVPUSH PRN ×2 (07:28→18:17)
[2019-10-15 13:14] LABS: HEMATOCRIT 38.6 % (35.4-49); HEMOGLOBIN 12.9 GM/dL (11.7-16.9); MCH 29.2 pg (25.7-33.7); MCHC 33.3 g/dl (32.0-35.9); MEAN CELL VOLUME 87.7 fl (80-96); MEAN PLT VOLUME 8.7 fl (7.5-11.1); PLATELET COUNT 483 K/MM3 (134-434); RDW 16.7 % (11.9-15.9); WHITE BLOOD COUNT 13.3 K/mm3 (4.0-10.0)
[2019-10-15 13:52] LABS: ALBUMIN 2.5 g/dl (3.4-5.0); BILIRUBIN,TOTAL 0.3 mg/dL (0.2-1); BLOOD UREA NITROGEN 11.8 mg/dL (7-18); CALCIUM 8.6 mg/dL (8.5-10.1); CREATININE 0.5 mg/dL (0.55-1.3); MAGNESIUM 2.1 mg/dL (1.8-2.4); POTASSIUM 4.3 mmol/L (3.5-5.1); TOT PROT 6.6 g/dl (6.4-8.2)
[2019-10-15 14:24] LABS: ANISOCYTOSIS 0; MACROCYTOSIS 0; PLATELET ESTIMATE NORMAL
[2019-10-15] MEDS ORDERED: CEFTRIAXONE 1 GM in DEXTROSE 5%-WATER - 50 ML IVPB ONE (14:24)
[2019-10-15] MEDS ORDERED: cefTRIAXone SODIUM 1 GM VIAL ONE (14:43)
[2019-10-15] MEDS ORDERED: DEXTROSE 5%-WATER - 50 ML IVPB ONE (14:43)
--- NOTE | 2019-10-15 15:18 | PN ---
Physical Exam: SUBJECTIVE: Patient seen and examined OBJECTIVE: Patient with a history of adenocarcinoma of his lung. Was evaluated by oncologist earlier this year and deemed not to be a candidate for immunotherapy and a poor candidate for chemotherapy. Patient has declined treatment for lung cancer previously with oncologist. 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 He presented to the ED on 10/13/2019 with complaints of left forearm pain after trauma earlier today. He also c/o of suprapubic pain for the past 2 days. Patient sustained trama to left forearm after he reached out from his bed and braced his fall with his left hand. 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 pending ortho consult. discussed with dr. arguello, start on ceftriaxone for possible UTI. imaging: rad/wrist/left hand 10/13/2019: loss of bone density, degenrative changes, non healed ulnar styloid process fracture. ovoid lucency distal radius. on a splint. shoulder left 10/13/2019: no acute pathology rad/forearm left 10/13/2019: 2 views of the forearm reveal a lucency in the distal right radius. possible mets from lung cancer. Vital Signs Period Temp Pulse Resp BP Sys/Roche Pulse Ox Last 24 Hr 97.7 F-98.7 F 73-101 18-20 81-134/56-71 96-97 GENERAL: Awake, alert, and fully oriented, in no acute distress. HEAD: Normal with no signs of trauma. EYES: Pupils equal, round and reactive to light, extraocular movements intact, sclera anicteric, conjunctiva clear. No lid lag. EARS, NOSE, THROAT: Ears normal, nares patent, oropharynx clear without exudates. Moist mucous membranes. NECK: Normal range of motion, supple without lymphadenopathy, JVD, or masses. LUNGS: Breath sounds equal, clear to auscultation bilaterally. No wheezes, and no crackles. No accessory muscle use. HEART: Regular rate and rhythm, normal S1 and S2 without murmur ABDOMEN: Soft, nontender, not distended, normoactive bowel sounds, no guarding, no rebound, no masses. MUSCULOSKELETAL: history of paraplagia (h/o spinal fracture) UPPER EXTREMITIES: left arm splint LOWER EXTREMITIES: history of paraplagia (h/o spinal fracture) PSYCHIATRIC: Cooperative. Good eye contact. Appropriate mood and affect. Laboratory Results - last 24 hr 10/14/19 10/15/19 10/15/19 17:30 12:57 12:57 WBC 13.3 H RBC 4.40 Hgb 12.9 Hct 38.6 MCV 87.7 MCH 29.2 MCHC 33.3 RDW 16.7 H Plt Count 483 H MPV 8.7 Absolute Neuts (auto) 9.6 H Neutrophils % Glassware Selector Neutrophils % (Manual) 75.2 Band Neutrophils % 0.0 Lymphocytes % Glassware Selector Lymphocytes % (Manual) 7.9 L Monocytes % Glassware Selector Monocytes % (Manual) 5 Eosinophils % Glassware Selector Eosinophils % (Manual) 6.9 H Basophils % Glassware Selector Basophils % (Manual) 1.0 D Myelocytes % (Man) 0 Promyelocytes % (Man) 0 Blast Cells % (Manual) 0 Nucleated RBC % 0 Metamyelocytes 0 Hypochromia 0 Platelet Estimate Normal Polychromasia 0 Poikilocytosis 0 Anisocytosis 0 Microcytosis 0 Macrocytosis 0 Sodium 141 Potassium 4.3 Chloride 106 Carbon Dioxide 28 Anion Gap 7 L BUN 11.8 Creatinine 0.5 L Est GFR (CKD-EPI)AfAm 130.88 Est GFR (CKD-EPI)NonAf 112.92 Random Glucose 95 Calcium 8.6 Magnesium 2.1 Total Bilirubin 0.3 AST 13 L ALT 16 Alkaline Phosphatase 119 H Total Protein 6.6 Albumin 2.5 L Urine Color Yellow Urine Appearance Clear Urine pH 6.5 Ur Specific [place] 1.007 L Urine Protein 1+ H Urine Glucose (UA) Negative Urine Ketones Negative Urine Blood Negative Urine Nitrite Negative Urine Bilirubin Negative Urine Urobilinogen 0.2 Ur Leukocyte Esterase 2+ H Urine WBC (Auto) 38 Urine RBC (Auto) 3.8 Urine Casts (Auto) 3 U Epithel Cells (Auto) 0.3 Urine Bacteria (Auto) 117.8 Active Medications Generic Name Dose Route Start Last Admin Trade Name Freq PRN Reason Stop Dose Admin Diazepam 10 mg 10/14/19 00:36 10/14/19 21:29 Valium - PO 10 mg TID PRN Administration ANXIETY Heparin Sodium (Porcine) 5,000 unit 10/14/19 06:00 10/15/19 14:01 Heparin - SQ 5,000 unit TID ZAIRA Administration Ketorolac Tromethamine 15 mg 10/14/19 12:00 10/15/19 07:28 Toradol Injection - IVPUSH 10/19/19 02:59 15 mg Q4H PRN Administration PAIN LEVEL 4 - 6 Morphine Sulfate 10 mg 10/14/19 17:45 10/15/19 04:15 Morphine 10 Mg/5 Ml Liquid PO 10 mg Q6H PRN Administration PAIN LEVEL 7 - 10 ASSESSMENT/PLAN: Problem List - Problems (1) Left wrist injury Assessment/Plan: rad/wrist/left hand 10/13/2019: loss of bone density, degenrative changes, non healed ulnar styloid process fracture. ovoid lucency distal radius. on a splint. shoulder left 10/13/2019: no acute pathology rad/forearm left 10/13/2019: 2 views of the forearm reveal a lucency in the distal right radius. possible mets from lung cancer. ortho evaluation, pain management. Code(s): S69.92XA - UNSP INJURY OF LEFT WRIST, HAND AND FINGER(S), INIT ENCNTR (2) Adenocarcinoma of right lung Assessment/Plan: Patient has been evaluated by oncologist in the past and not a candidate for chemotherapy. Code(s): C34.91 - MALIGNANT NEOPLASM OF UNSP PART OF RIGHT BRONCHUS OR LUNG (3) Neurogenic bladder Assessment/Plan: chronic brambila catheter (condom). maintain output. start flomax Code(s): N31.9 - NEUROMUSCULAR DYSFUNCTION OF BLADDER, UNSPECIFIED (4) Paraplegia Assessment/Plan: bed bound s/p spinal injury Code(s): G82.20 - PARAPLEGIA, UNSPECIFIED (5) Leukocytosis Assessment/Plan: trending down, no fevers pending ua/uc Code(s): D72.829 - ELEVATED WHITE BLOOD CELL COUNT, UNSPECIFIED (6) Prophylactic measure Assessment/Plan: fen tolerating po monitor electrolyes low salt diet full code Code(s): Z29.9 - ENCOUNTER FOR PROPHYLACTIC MEASURES, UNSPECIFIED Visit type - Emergency Visit Emergency Visit: Yes ED Registration Date: 10/13/19 Care time: The patient presented to the Emergency Department on the above date and was hospitalized for further evaluation of their emergent condition. - New Patient This patient is new to me today: No - Critical Care Critical Care patient: No - Discharge Referral Referred to [facility] No
--- NOTE | 2019-10-15 17:35 | CON.ORTH ---
Consult Consult Specialty:: Orthopedics Reason for Consultation:: Left wrist pain s/p mechanical fall - History of Present Illness Chief Complaint: Left wrist pain History of Present Illness: This is a 64 year old male with PMHx of adenocarcinoma of right lung, COPD, HTN and paraplegia who presented to ED with left wrist pain after falling out of his bed. Patient states he hit his hand on a steel stool he has next to his bed. He states pain was mostly to dorsal aspect of wrist, worse with any ROM. During evaluation, patient notes pain is significantly improved since his admission. Has no complaints of pain at this time. Wearing arm splint placed by ER. Patient states he does not have full ROM of wrist and hand at baseline due to several previous injuries. Denies any numbness or tingling to fingers. 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 (paraplegia due to accidental fall (T2 spinal fracture)) Gastrointestinal: Yes: Other (Hepatic hemangiomas) Renal/: Yes: Other (Bladder dysfunction) Infectious Disease: Yes: Other (multiple UTIs Pseudomonas) Musculoskeletal: Yes: Paraplegia, Other (Chronic pain) - Past Surgical History Past Surgical History: Yes: Splenectomy - Alcohol/Substance Use Hx Alcohol Use: No History of Substance Use: reports: Marijuana - Smoking History Smoking history: Former smoker Have you smoked in the past 12 months: No Aproximately how many cigarettes per day: 3 If you are a former smoker, when did you quit?: 1985 - Social History Usual Living Arrangement: With Significant Other 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 ([facility] (24hr)) History of Recent Travel: No Home Medications - Allergies Allergies/Adverse Reactions: Allergies Allergy/AdvReac Type Severity Reaction Status Date / Time vancomycin Allergy Verified 10/13/19 18:10 - Home Medications Home Medications: Ambulatory Orders Diazepam [Valium] 10 mg PO TID PRN tablet MDD 30mg 06/17/18 Morphine 10 mg/5 ml Liquid [Morphine 10 mg/5 mL Liquid -] 20 mg PO Q4H MDD 60mg 06/14/19 Review of Systems - Review of Systems Musculoskeletal: reports: Other (Left wrist pain) Physical Exam for Ortho Vital Signs: Vital Signs Temperature 98.3 F 10/15/19 15:00 Pulse Rate 73 10/15/19 15:00 Respiratory Rate 20 02/07/20 15:00 Blood Pressure 125/71 10/15/19 15:00 O2 Sat by Pulse Oximetry (%) 97 10/15/19 09:00 Labs: CBC, BMP 10/15/19 12:57 10/15/19 12:57 - Upper Extremity Wrist: Yes: Left (No skin lesions, increased warmth, erythema or swelling. Nontender throughout. Limited ROM which patient states is his baseline. 01/10 strenght. NVID.) Imaging - Results X-ray: Report Reviewed, Image Reviewed (2 views of left wrist show evidence of previous ulnar styloid fracture. No acute fracture or dislocation seen. Area of lucency seen at distal radius which was previously seen in XR on 07/20/2019 and unchanged.) Assessment/Plan This is a 64 year old male with PMHx of adenocarcinoma of right lung, COPD, HTN and paraplegia who presented to ED with left wrist pain after falling out of his bed. Patient reports pain is significantly improved since his admission. -Discussed case with Dr. Brooks -XR negative for fracture. Area of lucency seen at distal radius that was also seen on wrist XR from 07/20/2019. No change in shape or size. -Explained to the patient the lesion does not appear to be invading the bone cor tices and has low probability of causing a fracture -Recommended he seek treatment from musculoskeletal oncologist -Patient stated he does not wish to seek treatment as of yet -He can continue wearing removable wrist splint put on by ER if he feels most comfortable this way -Feel free to re-consult if needed
[2019-10-15] MEDS: diazePAM 5 MG TABLET PO PRN (21:14)
[2019-10-16] MEDS: morphine SULFATE 10 MG/5 ML UNIT-DOSE CUP PO PRN ×3 (06:27→21:39)
[2019-10-16] MEDS: diazePAM 5 MG TABLET PO PRN (06:29)
[2019-10-16] MEDS: HEPARIN NA (PORCINE) 5,000 UNITS/ML 1ML VIAL SQ SCH ×3 (06:29→21:39)
[2019-10-16] MEDS ORDERED: SENNOSIDES 8.6MG TABLET (FP) PO PRN (07:53)
[2019-10-16] MEDS: DOCUSATE SODIUM 100 MG CAPSULE (FP) PO SCH ×2 (08:55→13:42)
[2019-10-16] MEDS ORDERED: POLYETHYLENE GLYCOL 3350 119 GM BTL PO SCH (10:00)
[2019-10-16] MEDS ORDERED: cefTRIAXone SODIUM 1 GM VIAL ONE (12:22)
[2019-10-16] MEDS ORDERED: DEXTROSE 5%-WATER - 50 ML IVPB ONE (12:22)
[2019-10-16] MEDS: CEFTRIAXONE 1 GM in DEXTROSE 5%-WATER - 50 ML IVPB SCH (12:28)
--- NOTE | 2019-10-16 13:09 | CON.ID ---
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 (paraplegia due to accidental fall (T2 spinal fracture)) Gastrointestinal: Yes: Other (Hepatic hemangiomas) Renal/: Yes: Other (Bladder dysfunction) Infectious Disease: Yes: Other (multiple UTIs Pseudomonas) Musculoskeletal: Yes: Paraplegia, Other (Chronic pain) - Past Surgical History Past Surgical History: Yes: Splenectomy - Alcohol/Substance Use Hx Alcohol Use: No History of Substance Use: reports: Marijuana - Smoking History Smoking history: Former smoker Have you smoked in the past 12 months: No Aproximately how many cigarettes per day: 3 If you are a former smoker, when did you quit?: 1985 - Social History Usual Living Arrangement: With Significant Other 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 ([facility] (24hr)) History of Recent Travel: No Home Medications - Allergies Allergies/Adverse Reactions: Allergies Allergy/AdvReac Type Severity Reaction Status Date / Time vancomycin Allergy Verified 10/13/19 18:10 - Home Medications Home Medications: Ambulatory Orders Diazepam [Valium] 10 mg PO TID PRN tablet MDD 30mg 06/17/18 Morphine 10 mg/5 ml Liquid [Morphine 10 mg/5 mL Liquid -] 20 mg PO Q4H MDD 60mg 06/14/19 Physical Exam Vital Signs: Vital Signs Temperature 98.1 F 10/16/19 09:10 Pulse Rate 60 10/16/19 09:10 Respiratory Rate 18 10/16/19 09:10 Blood Pressure 129/59 L 10/16/19 09:10 O2 Sat by Pulse Oximetry (%) 98 10/15/19 21:00 Labs: CBC, BMP 10/15/19 12:57 10/15/19 12:57
--- NOTE | 2019-10-16 13:24 | PN ---
Physical Exam: SUBJECTIVE: Patient seen and examined OBJECTIVE: Patient with a history of adenocarcinoma of his lung. Was evaluated by oncologist earlier this year and deemed not to be a candidate for immunotherapy and a poor candidate for chemotherapy. Patient has declined treatment for lung cancer previously with oncologist. 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 He presented to the ED on 10/13/2019 with complaints of left forearm pain after trauma earlier today. He also c/o of suprapubic pain for the past 2 days. Patient sustained trama to left forearm after he reached out from his bed and braced his fall with his left hand. imaging: rad/wrist/left hand 10/13/2019: loss of bone density, degenrative changes, non healed ulnar styloid process fracture. ovoid lucency distal radius. on a splint. shoulder left 10/13/2019: no acute pathology rad/forearm left 10/13/2019: 2 views of the forearm reveal a lucency in the distal right radius. possible mets from lung cancer. Vital Signs Period Temp Pulse Resp BP Sys/Roche Pulse Ox Last 24 Hr 98.1 F-98.6 F 56-73 15-20 125-138/51-75 98 GENERAL: Awake, alert, and fully oriented, in no acute distress. HEAD: Normal with no signs of trauma. EYES: Pupils equal, round and reactive to light, extraocular movements intact, sclera anicteric, conjunctiva clear. No lid lag. EARS, NOSE, THROAT: Ears normal, nares patent, oropharynx clear without exudates. Moist mucous membranes. NECK: Normal range of motion, supple without lymphadenopathy, JVD, or masses. LUNGS: Breath sounds equal, clear to auscultation bilaterally. No wheezes, and no crackles. No accessory muscle use. HEART: Regular rate and rhythm, normal S1 and S2 without murmur ABDOMEN: Soft, nontender, not distended, normoactive bowel sounds, no guarding, no rebound, no masses. MUSCULOSKELETAL: history of paraplagia (h/o spinal fracture) UPPER EXTREMITIES: left arm splint LOWER EXTREMITIES: history of paraplagia (h/o spinal fracture) PSYCHIATRIC: Cooperative. Good eye contact. Appropriate mood and affect Laboratory Results - last 24 hr 10/15/19 10/15/19 12:57 12:57 WBC 13.3 H RBC 4.40 Hgb 12.9 Hct 38.6 MCV 87.7 MCH 29.2 MCHC 33.3 RDW 16.7 H Plt Count 483 H MPV 8.7 Absolute Neuts (auto) 9.6 H Neutrophils % Depalletizer Operator Neutrophils % (Manual) 75.2 Band Neutrophils % 0.0 Lymphocytes % Depalletizer Operator Lymphocytes % (Manual) 7.9 L Monocytes % Depalletizer Operator Monocytes % (Manual) 5 Eosinophils % Depalletizer Operator Eosinophils % (Manual) 6.9 H Basophils % Depalletizer Operator Basophils % (Manual) 1.0 D Myelocytes % (Man) 0 Promyelocytes % (Man) 0 Blast Cells % (Manual) 0 Nucleated RBC % 0 Metamyelocytes 0 Hypochromia 0 Platelet Estimate Normal Polychromasia 0 Poikilocytosis 0 Anisocytosis 0 Microcytosis 0 Macrocytosis 0 Sodium 141 Potassium 4.3 Chloride 106 Carbon Dioxide 28 Anion Gap 7 L BUN 11.8 Creatinine 0.5 L Est GFR (CKD-EPI)AfAm 130.88 Est GFR (CKD-EPI)NonAf 112.92 Random Glucose 95 Calcium 8.6 Magnesium 2.1 Total Bilirubin 0.3 AST 13 L ALT 16 Alkaline Phosphatase 119 H Total Protein 6.6 Albumin 2.5 L Active Medications Generic Name Dose Route Start Last Admin Trade Name Freq PRN Reason Stop Dose Admin Diazepam 10 mg 10/14/19 00:36 10/16/19 06:29 Valium - PO 10 mg TID PRN Administration ANXIETY Docusate Sodium 100 mg 10/16/19 08:00 10/16/19 08:55 Colace - PO 100 mg TID ZAIRA Administration Heparin Sodium (Porcine) 5,000 unit 10/14/19 06:00 10/16/19 06:29 Heparin - SQ 5,000 unit TID ZAIRA Administration Ceftriaxone Sodium 1 gm/ 50 mls @ 100 mls/hr 10/16/19 12:15 10/16/19 12:28 Dextrose IVPB 100 mls/hr DAILY ZAIRA Administration Protocol Ketorolac Tromethamine 15 mg 10/14/19 12:00 10/15/19 18:17 Toradol Injection - IVPUSH 10/19/19 02:59 15 mg Q4H PRN Administration PAIN LEVEL 4 - 6 Morphine Sulfate 10 mg 10/14/19 17:45 10/16/19 12:27 Morphine 10 Mg/5 Ml Liquid PO 10 mg Q6H PRN Administration PAIN LEVEL 7 - 10 Polyethylene Glycol 17 gm 10/16/19 10:00 10/16/19 10:13 Miralax (For Daily Use) - PO 17 gm DAILY ZAIRA Administration Senna 2 tab 10/16/19 07:53 Senna - PO HS PRN CONSTIPATION ASSESSMENT/PLAN: Problem List - Problems (1) Left wrist injury Assessment/Plan: rad/wrist/left hand 10/13/2019: loss of bone density, degenrative changes, non healed ulnar styloid process fracture. ovoid lucency distal radius. on a splint. shoulder left 10/13/2019: no acute pathology rad/forearm left 10/13/2019: 2 views of the forearm reveal a lucency in the distal right radius. possible mets from lung cancer. seen by ortho and evaluation with a muscularskeletal oncologist recommended. Code(s): S69.92XA - UNSP INJURY OF LEFT WRIST, HAND AND FINGER(S), INIT ENCNTR (2) Adenocarcinoma of right lung Assessment/Plan: Patient has been evaluated by oncologist in the past and not a candidate for chemotherapy. Code(s): C34.91 - MALIGNANT NEOPLASM OF UNSP PART OF RIGHT BRONCHUS OR LUNG (3) Neurogenic bladder Assessment/Plan: chronic brambila catheter (condom). maintain output. start flomax Code(s): N31.9 - NEUROMUSCULAR DYSFUNCTION OF BLADDER, UNSPECIFIED (4) Paraplegia Assessment/Plan: bed bound s/p spinal injury Code(s): G82.20 - PARAPLEGIA, UNSPECIFIED (5) Leukocytosis Assessment/Plan: trending down, no fevers pending ua/uc Code(s): D72.829 - ELEVATED WHITE BLOOD CELL COUNT, UNSPECIFIED (6) Prophylactic measure Assessment/Plan: fen tolerating po monitor electrolyes low salt diet full code Code(s): Z29.9 - ENCOUNTER FOR PROPHYLACTIC MEASURES, UNSPECIFIED Visit type - Emergency Visit Emergency Visit: Yes ED Registration Date: 10/13/19 Care time: The patient presented to the Emergency Department on the above date and was hospitalized for further evaluation of their emergent condition. - New Patient This patient is new to me today: No - Critical Care Critical Care patient: No - Discharge Referral Referred to [facility] No
[2019-10-17] MEDS: morphine SULFATE 10 MG/5 ML UNIT-DOSE CUP PO PRN ×4 (02:59→21:56)
[2019-10-17] MEDS: HEPARIN NA (PORCINE) 5,000 UNITS/ML 1ML VIAL SQ SCH ×3 (05:58→21:56)
[2019-10-17] MEDS: KETOROLAC TROMETHAMINE 15 MG/ML VIAL IVPUSH PRN (08:10)
[2019-10-17] MEDS ORDERED: DEXTROSE 5%-WATER - 50 ML IVPB ONE (09:29)
[2019-10-17] MEDS ORDERED: cefTRIAXone SODIUM 1 GM VIAL ONE (09:29)
[2019-10-17] MEDS: CEFTRIAXONE 1 GM in DEXTROSE 5%-WATER - 50 ML IVPB SCH (09:35)
[2019-10-17] MEDS: diazePAM 5 MG TABLET PO PRN (09:55)
[2019-10-17] MEDS: DOXYCYCLINE HYCLATE 100 MG CAPSULE PO SCH ×2 (12:08→17:34)
[2019-10-17] MEDS ORDERED: TAMSULOSIN HCL 0.4 MG CAP PO ONE (14:00)
--- NOTE | 2019-10-17 18:03 | PN ---
Physical Exam: SUBJECTIVE: Patient seen and examined at the bedside. 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 He presented to the ED on 10/13/2019 with complaints of left forearm pain after trauma earlier today. He also c/o of suprapubic pain for the past 2 days. Patient sustained trauma to left forearm after he reached out from his bed and braced his fall with his left hand. imaging: rad/wrist/left hand 10/13/2019: loss of bone density, degenerative changes, non healed ulnar styloid process fracture. ovoid lucency distal radius. on a splint. shoulder left 10/13/2019: no acute pathology rad/forearm left 10/13/2019: 2 views of the forearm reveal a lucency in the distal right radius. possible mets from lung cancer. remove brambila in a.m. at 0600 and perform a voiding trail. patient to be placed on condom cath. Vital Signs Period Temp Pulse Resp BP Sys/Roche Pulse Ox Last 24 Hr 97.8 F-98.0 F 52-72 18-20 134-172/62-72 93-96 GENERAL: Awake, alert, and fully oriented, in no acute distress. HEAD: Normal with no signs of trauma. EYES: Pupils equal, round and reactive to light, extraocular movements intact, sclera anicteric, conjunctiva clear. No lid lag. EARS, NOSE, THROAT: Ears normal, nares patent, oropharynx clear without exudates. Moist mucous membranes. NECK: Normal range of motion, supple without lymphadenopathy, JVD, or masses. LUNGS: Breath sounds equal, clear to auscultation bilaterally. No wheezes, and no crackles. No accessory muscle use. HEART: Regular rate and rhythm, normal S1 and S2 without murmur ABDOMEN: Soft, nontender, not distended, normoactive bowel sounds, no guarding, no rebound, no masses. MUSCULOSKELETAL: history of paraplagia (h/o spinal fracture) UPPER EXTREMITIES: left arm splint LOWER EXTREMITIES: history of paraplagia (h/o spinal fracture) PSYCHIATRIC: Cooperative. Good eye contact. Appropriate mood and affect Active Medications Generic Name Dose Route Start Last Admin Trade Name Freq PRN Reason Stop Dose Admin Diazepam 10 mg 10/14/19 00:36 10/17/19 09:55 Valium - PO 10 mg TID PRN Administration ANXIETY Doxycycline Hyclate 100 mg 10/17/19 11:24 10/17/19 17:34 Vibramycin - PO 100 mg BID@1000,1800 [facility] Administration Heparin Sodium (Porcine) 5,000 unit 10/14/19 06:00 10/17/19 14:23 Heparin - SQ 5,000 unit TID [facility] Administration Ketorolac Tromethamine 15 mg 10/14/19 12:00 10/17/19 08:10 Toradol Injection - IVPUSH 10/19/19 02:59 15 mg Q4H PRN Administration PAIN LEVEL 4 - 6 Morphine Sulfate 10 mg 10/14/19 17:45 10/17/19 16:22 Morphine 10 Mg/5 Ml Liquid PO 10 mg Q6H PRN Administration PAIN LEVEL 7 - 10 Tamsulosin HCl 0.4 mg 10/18/19 08:30 Flomax - PO DAILY@0830 [facility] ASSESSMENT/PLAN: Problem List - Problems (1) Left wrist injury Assessment/Plan: rad/wrist/left hand 10/13/2019: loss of bone density, degenrative changes, non healed ulnar styloid process fracture. ovoid lucency distal radius. on a splint. shoulder left 10/13/2019: no acute pathology rad/forearm left 10/13/2019: 2 views of the forearm reveal a lucency in the distal right radius. possible mets from lung cancer. seen by ortho and evaluation with a muscularskeletal oncologist recommended. Code(s): S69.92XA - UNSP INJURY OF LEFT WRIST, HAND AND FINGER(S), INIT ENCNTR (2) Adenocarcinoma of right lung Assessment/Plan: Patient has been evaluated by oncologist in the past and not a candidate for chemotherapy. Code(s): C34.91 - MALIGNANT NEOPLASM OF UNSP PART OF RIGHT BRONCHUS OR LUNG (3) Neurogenic bladder Assessment/Plan: discontinue indwelling brambila and place on condom cath in am. to perform voiding trial. flomax bid ordered Code(s): N31.9 - NEUROMUSCULAR DYSFUNCTION OF BLADDER, UNSPECIFIED (4) Paraplegia Assessment/Plan: bed bound s/p spinal injury Code(s): G82.20 - PARAPLEGIA, UNSPECIFIED (5) Leukocytosis Assessment/Plan: trending down, no fevers pending ua/uc Code(s): D72.829 - ELEVATED WHITE BLOOD CELL COUNT, UNSPECIFIED (6) UTI (urinary tract infection) Assessment/Plan: stopped ceftriaxone, as it is resistant to staph epi, patient with allergy to vanco per ID, can start on doxycycline Code(s): N39.0 - URINARY TRACT INFECTION, SITE NOT SPECIFIED Qualifiers: Urinary tract infection type: site unspecified Hematuria presence: with hematuria Qualified Code(s): N39.0 - Urinary tract infection, site not specified; R31.9 - Hematuria, unspecified (7) Prophylactic measure Assessment/Plan: fen tolerating po monitor electrolyes low salt diet full code Code(s): Z29.9 - ENCOUNTER FOR PROPHYLACTIC MEASURES, UNSPECIFIED Visit type - Emergency Visit Emergency Visit: Yes ED Registration Date: 10/13/19 Care time: The patient presented to the Emergency Department on the above date and was hospitalized for further evaluation of their emergent condition. - New Patient This patient is new to me today: No - Critical Care Critical Care patient: No - Discharge Referral Referred to [facility] Med P.C.: No
[2019-10-17] MEDS: TAMSULOSIN HCL 0.4 MG CAP PO SCH (21:56)
[2019-10-18] MEDS: KETOROLAC TROMETHAMINE 15 MG/ML VIAL IVPUSH PRN (02:16)
[2019-10-18] MEDS: HEPARIN NA (PORCINE) 5,000 UNITS/ML 1ML VIAL SQ SCH ×2 (06:20→13:47)
[2019-10-18] MEDS ORDERED: TAMSULOSIN HCL 0.4 MG CAP PO SCH (08:30)
[2019-10-18] MEDS ORDERED: PT OWN MED DRAWER 7, Y5N ONE (10:07)
[2019-10-18] MEDS: TAMSULOSIN HCL 0.4 MG CAP PO SCH (10:10)
[2019-10-18] MEDS: DOXYCYCLINE HYCLATE 100 MG CAPSULE PO SCH ×2 (10:10→18:01)
--- NOTE | 2019-10-18 10:34 | PN ---
Progress Note, Physician History of Present Illness: stable no burning today no complaints - Current Medication List Current Medications: Active Medications Diazepam (Valium -) 10 mg PO TID PRN PRN Reason: ANXIETY Last Admin: 10/17/19 09:55 Dose: 10 mg Doxycycline Hyclate (Vibramycin -) 100 mg PO BID@1000,1800 [facility] Last Admin: 10/18/19 10:10 Dose: 100 mg Heparin Sodium (Porcine) (Heparin -) 5,000 unit SQ TID [facility] Last Admin: 10/18/19 06:20 Dose: 5,000 unit Ketorolac Tromethamine (Toradol Injection -) 15 mg IVPUSH Q4H PRN PRN Reason: PAIN LEVEL 4 - 6 Stop: 10/19/19 02:59 Last Admin: 10/18/19 02:16 Dose: 15 mg Morphine Sulfate (Morphine 10 Mg/5 Ml Liquid) 10 mg PO Q6H PRN PRN Reason: PAIN LEVEL 7 - 10 Last Admin: 10/17/19 21:56 Dose: 10 mg Tamsulosin HCl (Flomax -) 0.4 mg PO BID [facility] Last Admin: 10/18/19 10:10 Dose: 0.4 mg - Objective Vital Signs: Vital Signs Temperature 97.5 F L 10/18/19 06:52 Pulse Rate 64 10/18/19 06:52 Respiratory Rate 18 10/18/19 06:52 Blood Pressure 118/56 L 10/18/19 06:52 O2 Sat by Pulse Oximetry (%) 95 10/17/19 21:00 Constitutional: Yes: No Distress, Calm Cardiovascular: Yes: S1, S2 Respiratory: Yes: Regular, CTA Bilaterally Gastrointestinal: Yes: Normal Bowel Sounds, Soft Musculoskeletal: Yes: WNL Extremities: Yes: Other Neurological: Yes: Alert, Oriented Psychiatric: Yes: Alert, Oriented Labs: CBC, BMP 10/15/19 12:57 10/15/19 12:57 Assessment/Plan Problem List - Problems (1) Left wrist injury Code(s): S69.92XA - UNSP INJURY OF LEFT WRIST, HAND AND FINGER(S), INIT ENCNTR (2) Adenocarcinoma of right lung Code(s): C34.91 - MALIGNANT NEOPLASM OF UNSP PART OF RIGHT BRONCHUS OR LUNG (3) Neurogenic bladder Code(s): N31.9 - NEUROMUSCULAR DYSFUNCTION OF BLADDER, UNSPECIFIED (4) Paraplegia Code(s): G82.20 - PARAPLEGIA, UNSPECIFIED (5) Leukocytosis Code(s): D72.829 - ELEVATED WHITE BLOOD CELL COUNT, UNSPECIFIED (6) UTI (urinary tract infection) Code(s): N39.0 - URINARY TRACT INFECTION, SITE NOT SPECIFIED Qualifiers: Urinary tract infection type: site unspecified Hematuria presence: with hematuria Qualified Code(s): N39.0 - Urinary tract infection, site not specified; R31.9 - Hematuria, unspecified (7) Prophylactic measure Code(s): Z29.9 - ENCOUNTER FOR PROPHYLACTIC MEASURES, UNSPECIFIED plan can start doxy continue current mgmt
--- NOTE | 2019-10-18 10:36 | PN ---
Progress Note, Physician History of Present Illness: stable no new issues - Current Medication List Current Medications: Active Medications Diazepam (Valium -) 10 mg PO TID PRN PRN Reason: ANXIETY Last Admin: 10/17/19 09:55 Dose: 10 mg Doxycycline Hyclate (Vibramycin -) 100 mg PO BID@1000,1800 [facility] Last Admin: 10/18/19 10:10 Dose: 100 mg Heparin Sodium (Porcine) (Heparin -) 5,000 unit SQ TID [facility] Last Admin: 10/18/19 06:20 Dose: 5,000 unit Ketorolac Tromethamine (Toradol Injection -) 15 mg IVPUSH Q4H PRN PRN Reason: PAIN LEVEL 4 - 6 Stop: 10/19/19 02:59 Last Admin: 10/18/19 02:16 Dose: 15 mg Morphine Sulfate (Morphine 10 Mg/5 Ml Liquid) 10 mg PO Q6H PRN PRN Reason: PAIN LEVEL 7 - 10 Last Admin: 10/17/19 21:56 Dose: 10 mg Tamsulosin HCl (Flomax -) 0.4 mg PO BID [facility] Last Admin: 10/18/19 10:10 Dose: 0.4 mg - Objective Vital Signs: Vital Signs Temperature 97.5 F L 10/18/19 06:52 Pulse Rate 64 10/18/19 06:52 Respiratory Rate 18 10/18/19 06:52 Blood Pressure 118/56 L 10/18/19 06:52 O2 Sat by Pulse Oximetry (%) 95 10/17/19 21:00 Constitutional: Yes: No Distress, Calm Cardiovascular: Yes: S1, S2 Respiratory: Yes: Regular, CTA Bilaterally Gastrointestinal: Yes: Normal Bowel Sounds, Soft Extremities: Yes: Other Neurological: Yes: Alert, Oriented Psychiatric: Yes: Alert, Oriented Labs: CBC, BMP 10/15/19 12:57 10/15/19 12:57 Assessment/Plan Problem List - Problems (1) Left wrist injury Code(s): S69.92XA - UNSP INJURY OF LEFT WRIST, HAND AND FINGER(S), INIT ENCNTR (2) Adenocarcinoma of right lung Code(s): C34.91 - MALIGNANT NEOPLASM OF UNSP PART OF RIGHT BRONCHUS OR LUNG (3) Neurogenic bladder Code(s): N31.9 - NEUROMUSCULAR DYSFUNCTION OF BLADDER, UNSPECIFIED (4) Paraplegia Code(s): G82.20 - PARAPLEGIA, UNSPECIFIED (5) Leukocytosis Code(s): D72.829 - ELEVATED WHITE BLOOD CELL COUNT, UNSPECIFIED (6) UTI (urinary tract infection) Code(s): N39.0 - URINARY TRACT INFECTION, SITE NOT SPECIFIED Qualifiers: Urinary tract infection type: site unspecified Hematuria presence: with hematuria Qualified Code(s): N39.0 - Urinary tract infection, site not specified; R31.9 - Hematuria, unspecified (7) Prophylactic measure Code(s): Z29.9 - ENCOUNTER FOR PROPHYLACTIC MEASURES, UNSPECIFIED plan doxy continue current mgmt
[2019-10-18] MEDS: morphine SULFATE 10 MG/5 ML UNIT-DOSE CUP PO PRN ×2 (13:45→20:29)
--- NOTE | 2019-10-18 13:47 | DS ---
Physical Exam: SUBJECTIVE: Patient seen and examined. wants to go home today and refusing to stay for another day to monitor urine output. States he has no issues and agrees to take Flomax OBJECTIVE: patient placed on condom cath, and draining clear yellow urine, bladder scan shows no retention. 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 He presented to the ED on 10/13/2019 with complaints of left forearm pain after trauma earlier today. He also c/o of suprapubic pain for the past 2 days. Patient sustained trauma to left forearm after he reached out from his bed and braced his fall with his left hand. imaging: rad/wrist/left hand 10/13/2019: loss of bone density, degenerative changes, non healed ulnar styloid process fracture. ovoid lucency distal radius. on a splint. shoulder left 10/13/2019: no acute pathology rad/forearm left 10/13/2019: 2 views of the forearm reveal a lucency in the distal right radius. possible mets from lung cancer. Vital Signs Period Temp Pulse Resp BP Sys/Roche Pulse Ox Last 24 Hr 97.5 F-98.0 F 54-69 18-20 110-138/52-66 95 PHYSICAL EXAM GENERAL: Awake, alert, and fully oriented, in no acute distress. HEAD: Normal with no signs of trauma. EYES: Pupils equal, round and reactive to light, extraocular movements intact, sclera anicteric, conjunctiva clear. No lid lag. EARS, NOSE, THROAT: Ears normal, nares patent, oropharynx clear without exudates. Moist mucous membranes. NECK: Normal range of motion, supple without lymphadenopathy, JVD, or masses. LUNGS: Breath sounds equal, clear to auscultation bilaterally. No wheezes, and no crackles. No accessory muscle use. HEART: Regular rate and rhythm, normal S1 and S2 without murmur ABDOMEN: Soft, nontender, not distended, normoactive bowel sounds, no guarding, no rebound, no masses. MUSCULOSKELETAL: history of paraplagia (h/o spinal fracture) UPPER EXTREMITIES: left arm splint LOWER EXTREMITIES: history of paraplagia (h/o spinal fracture) PSYCHIATRIC: Cooperative. Good eye contact. Appropriate mood and affect LABS HOSPITAL COURSE: Date of Admission:10/13/19 Date of Discharge: 10/18/19 Minutes to complete discharge: 45 Discharge Summary Problems reviewed: Yes Reason For Visit: PARAPLEGIA Current Active Problems Left wrist injury (Acute) Prophylactic measure (Acute) Condition: Stable - Instructions Diet, Activity, Other Instructions: Mr. Valenzuela: You were admitted for left wrist pain after falling and suprapubic pain. You were evaluated by orthopedics surgery as well as infectious disease. Here are our recommendations: Left wrist pain No fracture was seen. You were seen by an geological specialist who recommended that you seek treatment from a musculoskeletal oncologist. Continue to wear the wrist split and follow up the orthopedic physician by calling their office for an appointment. Urinary Tract infection You were started on an antibiotic called Doxycycline that you will take twice per day for 7 more days total. You were also be sent home with flomax to be take TWCE per day. Thank you for allowing us to care for you. Please follow up with Dr. Kang on discharge by calling his office to make an appointment. Referrals: Juan Manuel Kang MD [Primary Care Provider] - Asad Brooks MD [Staff Physician] - Disposition: HOME - Home Medications Comprehensive Discharge Medication List: Ambulatory Orders Diazepam [Valium] 10 mg PO TID PRN tablet MDD 30mg 06/17/18 Morphine 10 mg/5 ml Liquid [Morphine 10 mg/5 mL Liquid -] 20 mg PO Q4H MDD 60mg 06/14/19 Doxycycline Hyclate [Vibramycin -] 100 mg PO BID@1000,1800 #14 capsule 10/18/19 Tamsulosin HCl [Flomax -] 0.4 mg PO BID #90 cap.er.24h 10/18/19 Problem List - Problems (1) Left wrist injury Assessment/Plan: rad/wrist/left hand 10/13/2019: loss of bone density, degenrative changes, non healed ulnar styloid process fracture. ovoid lucency distal radius. on a splint. shoulder left 10/13/2019: no acute pathology rad/forearm left 10/13/2019: 2 views of the forearm reveal a lucency in the distal right radius. possible mets from lung cancer. seen by ortho and evaluation with a muscularskeletal oncologist recommended. Code(s): S69.92XA - UNSP INJURY OF LEFT WRIST, HAND AND FINGER(S), INIT ENCNTR (2) Adenocarcinoma of right lung Assessment/Plan: Patient has been evaluated by oncologist in the past and not a candidate for chemotherapy. Code(s): C34.91 - MALIGNANT NEOPLASM OF UNSP PART OF RIGHT BRONCHUS OR LUNG (3) Neurogenic bladder Assessment/Plan: patient back on his condom catheter and draining yellow urine. no retention per bladder scan. flomax bid ordered for home use. Code(s): N31.9 - NEUROMUSCULAR DYSFUNCTION OF BLADDER, UNSPECIFIED (4) Paraplegia Assessment/Plan: bed bound s/p spinal injury Code(s): G82.20 - PARAPLEGIA, UNSPECIFIED (5) UTI (urinary tract infection) Assessment/Plan: stopped ceftriaxone, as it is resistant to staph epi, patient with allergy to vanco per ID, can start on doxycycline for a total of 7 days Code(s): N39.0 - URINARY TRACT INFECTION, SITE NOT SPECIFIED Qualifiers: Urinary tract infection type: site unspecified Hematuria presence: with hematuria Qualified Code(s): N39.0 - Urinary tract infection, site not specified; R31.9 - Hematuria, unspecified (6) Prophylactic measure Assessment/Plan: fen tolerating po monitor electrolyes low salt diet full code Code(s): Z29.9 - ENCOUNTER FOR PROPHYLACTIC MEASURES, UNSPECIFIED This patient is new to me today: No Emergency Visit: Yes ED Registration Date: 10/13/19 Care time: The patient presented to the Emergency Department on the above date and was hospitalized for further evaluation of their emergent condition. Critical Care patient: No - Discharge Referral Referred to [facility] Med P.C.: No
[2019-10-18 14:12] LABS: BASO % 0.4 % (0-2.0); EOS % 3.5 % (0-4.5); HEMATOCRIT 40.2 % (35.4-49); HEMOGLOBIN 13.4 GM/dL (11.7-16.9); LYMPH % 16.3 % (8-40); MCH 29.1 pg (25.7-33.7); MCHC 33.2 g/dl (32.0-35.9); MEAN CELL VOLUME 87.6 fl (80-96); MEAN PLT VOLUME 9.8 fl (7.5-11.1); MONO % 8.9 % (3.8-10.2); NEUT % 70.9 % (42.8-82.8); PLATELET COUNT 490 K/MM3 (134-434); RBC 4.59 M/mm3 (4.00-5.60); RDW 16.7 % (11.9-15.9); WHITE BLOOD COUNT 7.6 K/mm3 (4.0-10.0)
[2019-10-18 14:38] LABS: ALBUMIN 2.6 g/dl (3.4-5.0); BILIRUBIN,TOTAL 0.3 mg/dL (0.2-1); BLOOD UREA NITROGEN 10.4 mg/dL (7-18); CALCIUM 9.1 mg/dL (8.5-10.1); CREATININE 0.6 mg/dL (0.55-1.3); POTASSIUM 4.5 mmol/L (3.5-5.1); TOT PROT 6.6 g/dl (6.4-8.2)
[2019-10-18 20:19] VITALS: BP 121/53; PULSE 57; TEMP 97.4
== END 2019-10-18 21:07 | disposition home or self-care (01) | DRG 543 ==
LOC: JER 17:34 → JERBED 20:14 → J8W 10-14 12:10
PROVIDERS: ADMIT Internal Medicine; ATTEND Nurse Practitioner Family
DX: C79.51 Secondary malignant neoplasm of bone (principal); G82.20 Paraplegia, unspecified; E87.1 Hypo-osmolality and hyponatremia; N39.0 Urinary tract infection, site not specified; C34.91 Malignant neoplasm of unspecified part of right bronchus or lung; D72.829 Elevated white blood cell count, unspecified; D47.3 Essential (hemorrhagic) thrombocythemia; E88.09 Other disorders of plasma-protein metabolism, not elsewhere classified; N31.9 Neuromuscular dysfunction of bladder, unspecified
CPT/HCPCS: 36415; 71045-TC-FY; 73030-TC-LT-FY; 73090-TC-LT-FY; 73110-TC-LT-FY; 73130-TC-LT-FY; 80048; 80053; 81003; 83735; 85025; 87086; 87186; 93005; 93010; 99285-25; J1644

== ENCOUNTER 2020-10-11 10:21 | Emergency (ER) | payer OTHER, BC ==
[2020-10-11 10:31] VITALS: TEMP 98.4; BMI 20.3
[2020-10-11 14:59] VITALS: BP 153/79; PULSE 65
== END 2020-10-11 15:25 | disposition home or self-care (01) ==
LOC: JER 10:21
DX: G82.20 Paraplegia, unspecified (principal); L97.919 Non-pressure chronic ulcer of unspecified part of right lower leg with unspecified severity
CPT/HCPCS: 73552-TC-RT-FY; 99283-25

== ENCOUNTER 2021-03-05 16:11 | Emergency (ER) | payer OTHER, BC ==
[2021-03-05 16:37] VITALS: BMI 15.6
[2021-03-05] MEDS ORDERED: diazePAM 5 MG TABLET PO ONE (19:20)
[2021-03-05] MEDS ORDERED: oxyCODONE HCL 5 MG TABLET PO ONE (19:20)
[2021-03-05] MEDS ORDERED: diazePAM 5 MG TABLET ONE (19:25)
[2021-03-05] MEDS ORDERED: oxyCODONE HCL 5 MG TABLET ONE (19:25)
[2021-03-05] MEDS ORDERED: ACETAMINOPHEN 500 MG TABLET (FP) PO ONE (20:58)
[2021-03-06 01:31] VITALS: BP 166/65; PULSE 73; TEMP 97.9
== END 2021-03-06 01:50 | disposition home or self-care (01) ==
LOC: JER 16:11
PROC: 0HQHXZZ Repair Right Upper Leg Skin, External Approach (ICD-10-PCS; principal; 2021-03-05)
DX: S71.111A Laceration without foreign body, right thigh, initial encounter (principal)
CPT/HCPCS: 99283-25

== ENCOUNTER 2021-07-15 06:53 | Inpatient (IN) | payer OTHER, BC ==
[2021-07-15] MEDS ORDERED: diazePAM 5 MG TABLET PO ONE (08:40)
[2021-07-15] MEDS ORDERED: morphine SULFATE 10 MG/5 ML UNIT-DOSE CUP PO ONE (08:40)
[2021-07-15] MEDS ORDERED: diazePAM 5 MG TABLET ONE (09:12)
[2021-07-15] MEDS ORDERED: oxyCODONE HCL 5 MG TABLET PO ONE (11:10)
[2021-07-15 11:26] LABS: BASO % 0.2 % (0-2.0); EOS % 0.6 % (0-4.5); HEMATOCRIT 36.6 % (35.4-49); HEMOGLOBIN 12.4 GM/dL (11.7-16.9); LYMPH % 11.2 % (8-40); MCH 29.3 pg (25.7-33.7); MCHC 33.8 g/dl (32.0-35.9); MEAN CELL VOLUME 86.7 fl (80-96); MONO % 7.2 % (3.8-10.2); NEUT % 80.8 % (42.8-82.8); PLATELET COUNT 570 10^3/uL (134-434); RBC 4.22 M/mm3 (4.00-5.60); RDW 14.7 % (11.9-15.9); WHITE BLOOD COUNT 13.4 K/mm3 (4.0-10.0)
[2021-07-15 11:28] LABS: EPI CELLS 18 /uL (0-25.1); HYALINE CASTS 1 /uL (0-3.1); URINE APPEARANCE CLEAR; URINE BACTERIA >9,000 /uL (0-1359); URINE BILIRUBIN NEGATIVE (NEGATIVE); URINE COLOR YELLOW; URINE GLUCOSE (UA) NEGATIVE (NEGATIVE); URINE KETONE NEGATIVE (NEGATIVE); URINE LEUK ESTERASE 2+ (NEGATIVE); URINE NITRITE NEGATIVE (NEGATIVE); URINE PROTEIN NEGATIVE (NEGATIVE); URINE RBC 2 /uL (0-23.9); URINE UROBILINOGEN 0.2 mg/dL (0.2-1.0); URINE WBC 53 /uL (0-25.8)
[2021-07-15 11:43] LABS: CHLORIDE 91 mmol/L (98-107); SODIUM 129 mmol/L (136-145)
[2021-07-15 11:45] LABS: ALBUMIN 2.8 g/dl (3.4-5.0); ANION GAP 7 MMOL/L (8-16); BLOOD UREA NITROGEN 11.3 mg/dL (7-18); CALCIUM 8.6 mg/dL (8.5-10.1); CO2 31 mmol/L (21-32)
[2021-07-15] MEDS ORDERED: CEFTRIAXONE 1 GM in DEXTROSE 5%-WATER - 100 ML IVPB ONE (11:45)
[2021-07-15 11:46] LABS: GLUCOSE,RANDOM 82 mg/dL (74-106)
[2021-07-15] MEDS ORDERED: SODIUM CHLORIDE 0.9% 500 ML INFUS.BAG IV ONE (11:48)
[2021-07-15 11:49] LABS: CREATININE 0.6 mg/dL (0.55-1.3); SGOT/AST 18 U/L (15-37); SGPT/ALT 13 U/L (13-61)
[2021-07-15 11:51] LABS: ALK PHOS 124 U/L (45-117); BILIRUBIN,TOTAL 0.4 mg/dL (0.2-1); TOT PROT 6.8 g/dl (6.4-8.2)
[2021-07-15] MEDS ORDERED: oxyCODONE HCL 5 MG TABLET ONE (12:07)
[2021-07-15 13:10] LABS: CREATININE, URINE RANDOM < 13.0 mg/dL (30-150)
[2021-07-15] MEDS ORDERED: CEFTRIAXONE 1 GM/50 ML BAG ONE (13:22)
[2021-07-15] MEDS ORDERED: SENNOSIDES 8.6MG TABLET (FP) PO PRN (16:49)
[2021-07-15] MEDS ORDERED: ACETAMINOPHEN 325 MG TABLET (FP) PO PRN (16:49)
[2021-07-15 19:23] LABS: N-TERMINAL BNP 898.1 pg/ml (5-125)
[2021-07-15 19:41] VITALS: BMI 12.7
[2021-07-15] MEDS: POLYETHYLENE GLYCOL (HEALTHYLAX) 3350 17 GM PACKET PO SCH (21:37)
[2021-07-15] MEDS: TAMSULOSIN HCL 0.4 MG CAP PO SCH (21:37)
[2021-07-15] MEDS: diazePAM 5 MG TABLET PO PRN (21:37)
[2021-07-15] MEDS: morphine SULFATE 10 MG/5 ML UNIT-DOSE CUP PO PRN (21:38)
[2021-07-15] MEDS: HEPARIN NA (PORCINE) 5,000 UNITS/ML 1ML VIAL SQ SCH (21:39)
[2021-07-16] MEDS: morphine SULFATE 10 MG/5 ML UNIT-DOSE CUP PO PRN ×5 (01:50→22:10)
[2021-07-16] MEDS ORDERED: cefTRIAXone SODIUM 1 GM VIAL ONE (09:04)
[2021-07-16] MEDS ORDERED: DEXTROSE 5%-WATER - 50 ML IVPB ONE (09:05)
[2021-07-16] MEDS ORDERED: DOCUSATE NA 100 MG/10 ML UNIT-DOSE CUPS PO PRN (09:07)
[2021-07-16] MEDS ORDERED: MINERAL OIL ENEMA 133 ML ENEMA RC PRN (09:07)
[2021-07-16 09:19] LABS: BASO % 1.3 % (0-2.0); HEMATOCRIT 34.5 % (35.4-49); HEMOGLOBIN 11.8 GM/dL (11.7-16.9); LYMPH % 9.5 % (8-40); MCH 29.4 pg (25.7-33.7); MCHC 34.3 g/dl (32.0-35.9); MEAN CELL VOLUME 85.6 fl (80-96); MEAN PLT VOLUME 8.8 fl (7.5-11.1); MONO % 7.9 % (3.8-10.2); NEUT % 80.3 % (42.8-82.8); PLATELET COUNT 541 10^3/uL (134-434); RBC 4.03 M/mm3 (4.00-5.60); RDW 14.6 % (11.9-15.9); WHITE BLOOD COUNT 12.6 K/mm3 (4.0-10.0)
[2021-07-16] MEDS: diazePAM 5 MG TABLET PO PRN ×2 (09:20→22:13)
[2021-07-16] MEDS: TAMSULOSIN HCL 0.4 MG CAP PO SCH ×2 (09:20→21:16)
[2021-07-16] MEDS: POLYETHYLENE GLYCOL (HEALTHYLAX) 3350 17 GM PACKET PO SCH ×2 (09:22→21:12)
[2021-07-16] MEDS: HEPARIN NA (PORCINE) 5,000 UNITS/ML 1ML VIAL SQ SCH ×2 (09:26→21:16)
[2021-07-16] MEDS: CEFTRIAXONE 1 GM in DEXTROSE 5%-WATER - 50 ML IVPB SCH (09:26)
[2021-07-16 09:36] LABS: ALBUMIN 2.8 g/dl (3.4-5.0); BLOOD UREA NITROGEN 12.8 mg/dL (7-18); CALCIUM 8.9 mg/dL (8.5-10.1)
[2021-07-16 09:39] LABS: CREATININE 0.5 mg/dL (0.55-1.3)
[2021-07-16 09:41] LABS: BILIRUBIN,TOTAL 0.6 mg/dL (0.2-1); TOT PROT 6.7 g/dl (6.4-8.2)
[2021-07-16] MEDS ORDERED: SENNOSIDES 8.6MG TABLET (FP) PO SCH (22:00)
[2021-07-17] MEDS: morphine SULFATE 10 MG/5 ML UNIT-DOSE CUP PO PRN ×3 (02:04→13:49)
[2021-07-17] MEDS: TAMSULOSIN HCL 0.4 MG CAP PO SCH (08:44)
[2021-07-17] MEDS: diazePAM 5 MG TABLET PO PRN ×2 (08:45→15:39)
[2021-07-17] MEDS ORDERED: DEXTROSE 5%-WATER - 50 ML IVPB ONE (09:58)
[2021-07-17] MEDS ORDERED: cefTRIAXone SODIUM 1 GM VIAL ONE (09:58)
[2021-07-17] MEDS: CEFTRIAXONE 1 GM in DEXTROSE 5%-WATER - 50 ML IVPB SCH (10:03)
[2021-07-17] MEDS: HEPARIN NA (PORCINE) 5,000 UNITS/ML 1ML VIAL SQ SCH (10:03)
[2021-07-17] MEDS: POLYETHYLENE GLYCOL (HEALTHYLAX) 3350 17 GM PACKET PO SCH (10:03)
[2021-07-17 14:35] VITALS: BP 100/57; PULSE 93; TEMP 99.4
== END 2021-07-17 17:50 | disposition home or self-care (01) | DRG 689 ==
LOC: JER 06:53 → JERBED 13:15 → J6S 17:19
PROVIDERS: ADMIT Internal Medicine
DX: N39.0 Urinary tract infection, site not specified (principal); E43 Unspecified severe protein-calorie malnutrition; E87.1 Hypo-osmolality and hyponatremia; R64 Cachexia; Z68.1 Body mass index [BMI] 19.9 or less, adult; G82.20 Paraplegia, unspecified; N31.9 Neuromuscular dysfunction of bladder, unspecified; F41.9 Anxiety disorder, unspecified; Z85.118 Personal history of other malignant neoplasm of bronchus and lung; K59.03 Drug induced constipation; T40.2X5A Adverse effect of other opioids, initial encounter
CPT/HCPCS: 36415; 71045-TC-FY; 80053; 81003; 82550; 82570; 83880; 83935; 84300; 84484; 85025; 87040; 87086; 87186; 93005; 93010; 99285-25; C9803; J1644; U0003; U0005

== ENCOUNTER 2021-08-30 00:46 | Emergency (ER) | payer OTHER, BC ==
[2021-08-30 01:39] VITALS: TEMP 98.3; BMI 14.5
[2021-08-30 02:34] LABS: BASO % 0.2 % (0-2.0); EOS % 1.2 % (0-4.5); HEMATOCRIT 35.8 % (35.4-49); HEMOGLOBIN 11.9 GM/dL (11.7-16.9); LYMPH % 11.3 % (8-40); MCH 28.5 pg (25.7-33.7); MCHC 33.2 g/dl (32.0-35.9); MEAN CELL VOLUME 85.7 fl (80-96); MEAN PLT VOLUME 8.7 fl (7.5-11.1); MONO % 9.3 % (3.8-10.2); PLATELET COUNT 553 10^3/uL (134-434); RBC 4.17 M/mm3 (4.00-5.60); WHITE BLOOD COUNT 15.5 K/mm3 (4.0-10.0)
[2021-08-30 02:41] LABS: INR 1.06 (0.83-1.09); PROTHROMBIN TIME (PATIENT) 12.4 SEC (9.7-13.0)
[2021-08-30 02:44] LABS: ACTIVATED PTT 32.3 SECONDS (25.2-36.5)
[2021-08-30 02:53] LABS: CHLORIDE 97 mmol/L (98-107); SODIUM 137 mmol/L (136-145)
[2021-08-30 02:55] LABS: CALCIUM 8.7 mg/dL (8.5-10.1)
[2021-08-30 02:56] LABS: ALBUMIN 2.4 g/dl (3.4-5.0); ANION GAP 5 MMOL/L (8-16); BLOOD UREA NITROGEN 14.7 mg/dL (7-18); CO2 35 mmol/L (21-32); GLUCOSE,RANDOM 99 mg/dL (74-106); MAGNESIUM 2.3 mg/dL (1.8-2.4)
[2021-08-30 02:59] LABS: CREATININE 0.7 mg/dL (0.55-1.3); SGOT/AST 16 U/L (15-37); SGPT/ALT 7 U/L (13-61)
[2021-08-30 03:01] LABS: BILIRUBIN,TOTAL 0.2 mg/dL (0.2-1)
[2021-08-30 03:02] LABS: ALK PHOS 109 U/L (45-117); TOT PROT 6.6 g/dl (6.4-8.2)
[2021-08-30 05:06] VITALS: BP 102/58; PULSE 65
[2021-08-30] MEDS ORDERED: CEFTRIAXONE 1,000 MG in DEXTROSE 5%-WATER - 50 ML IVPB ONE (05:50)
[2021-08-30] MEDS ORDERED: AZITHROMYCIN IVPB 500 MG in DEXTROSE 5%-WATER - 250 ML IVPB ONE (05:50)
[2021-08-30] MEDS ORDERED: diazePAM 5 MG TABLET PO ONE (13:08)
[2021-08-30] MEDS ORDERED: diazePAM 5 MG TABLET ONE (13:11)
[2021-08-30] MEDS ORDERED: oxyCODONE HCL 5 MG TABLET PO ONE (15:41)
[2021-08-30] MEDS ORDERED: oxyCODONE HCL 5 MG TABLET ONE (16:05)
== END 2021-08-30 17:17 | disposition home or self-care (01) ==
LOC: JER 00:46
DX: R06.02 Shortness of breath (principal); R91.8 Other nonspecific abnormal finding of lung field
CPT/HCPCS: 36415; 71275-TC; 80053; 82550; 83735; 84484; 85025; 85610; 85730; 93005; 93010; 99285-25; C9803; Q9967; U0003; U0005